=== PATIENT | female | born 1970 | race Caucasian/White ===

== ENCOUNTER 2021-11-02 07:56 | Outpatient (REF) | payer BC, SELFPAY ==
[2021-11-02 11:17] LABS: MANUAL DIFF FLAG NO
[2021-11-02 11:44] LABS: Basophils Absolute Auto 0.1 X10*3/uL (0.0-0.2); Basophils Percent Auto 1.2 % (0-2); Eosinophils Absolute Auto 0.1 X10*3/uL (0.0-0.4); Eosinophils Percent Auto 2.6 % (0-4); Hemoglobin 14.3 g/dl (12.0-16.0); Imm Gran Abs Auto 0.01 X10*3/uL (0.00-0.03); Imm Gran Pct Auto 0.2 % (0.0-0.4); Lymphocytes Absolute Auto 1.8 X10*3/uL (1.2-4.9); Lymphocytes Percent Auto 35.1 % (20-40); Mean Corpuscular HGB Conc 33.3 g/dl (31.0-35.0); Mean Corpuscular Hemoglobin 32.7 pg (27.0-33.0); Mean Corpuscular Volume 98.4 fL (80.0-98.0); Mean Platelet Volume 9.6 fL (9.4-12.3); Monocytes Absolute Auto 0.4 X10*3/uL (0.1-1.2); Monocytes Percent Auto 8.2 % (2-11); Neutrophils Absolute Auto 2.6 x10*3/uL (2.0-8.3); Neutrophils Percent Auto 52.7 % (45-73); Platelet Count 260 X10*3/uL (160-400); Red Blood Count 4.37 X10*6/uL (4.20-5.50)
[2021-11-02 12:16] LABS: Alanine Aminotransferase 17 U/L (0-31); Albumin Level 4.2 g/dL (3.5-5.0); Alkaline Phosphatase 41 U/L (39-117); Anion Gap 12 (12-20); Aspartate Amino Transferase 20 U/L (5-31); Bilirubin Total 0.8 mg/dL (0.0-1.0); Blood Urea Nitrogen 12 mg/dL (9-16); Calcium 9.3 mg/dL (8.4-10.2); Carbon Dioxide 27 mmol/L (22-29); Chloride 103 mmol/L (96-108); Cholesterol 180 mg/dL; Estimated Glomerular Filt Rate > 60; Glucose Fasting 83 mg/dL (60-99); HDL Cholesterol 67 mg/dL; LDL Cholesterol Calculated 92 mg/dl; Potassium 4.3 mmol/L (3.3-5.1); Sodium 138 mmol/L (135-145); Total Protein 6.7 g/dL (6.5-8.0); Triglycerides 105 mg/dL
== END 2021-11-02 07:57 | disposition home or self-care (01) ==
LOC: HO.MANLDS 07:56
PROVIDERS: PCP Physician Assistant; Visit Provider Physician Assistant
DX: Z00.00 Encounter for general adult medical examination without abnormal findings (principal)
CPT/HCPCS: 36415; 80053; 80061; 85025; 86900; 86901

== ENCOUNTER 2023-04-03 08:06 | Outpatient (REF) | payer BC, SELFPAY ==
[2023-04-03 13:12] LABS: MANUAL DIFF FLAG NO
[2023-04-03 13:37] LABS: Basophils Absolute Auto 0.1 X10*3/uL (0.0-0.2); Basophils Percent Auto 1.1 % (0-2); Eosinophils Absolute Auto 0.1 X10*3/uL (0.0-0.4); Eosinophils Percent Auto 2.2 % (0-4); Hematocrit 42.2 % (37.0-47.0); Hemoglobin 13.9 g/dl (12.0-16.0); Imm Gran Abs Auto 0.01 X10*3/uL (0.00-0.03); Imm Gran Pct Auto 0.2 % (0.0-0.4); Lymphocytes Absolute Auto 1.8 X10*3/uL (1.2-4.9); Lymphocytes Percent Auto 40.7 % (20-40); Mean Corpuscular HGB Conc 32.9 g/dl (31.0-35.0); Mean Corpuscular Hemoglobin 31.8 pg (27.0-33.0); Mean Corpuscular Volume 96.6 fL (80.0-98.0); Mean Platelet Volume 9.5 fL (9.4-12.3); Monocytes Absolute Auto 0.5 X10*3/uL (0.1-1.2); Monocytes Percent Auto 11.3 % (2-11); Neutrophils Percent Auto 44.5 % (45-73); Platelet Count 278 X10*3/uL (160-400); Red Blood Count 4.37 X10*6/uL (4.20-5.50); Red Cell Distribution Width 12.4 % (11.0-16.0); White Blood Count 4.5 X10*3/uL (4.8-10.8)
[2023-04-03 13:50] LABS: Alanine Aminotransferase 17 U/L (0-31); Albumin Level 4.6 g/dL (3.5-5.0); Alkaline Phosphatase 62 U/L (39-117); Anion Gap 11 (12-20); Aspartate Amino Transferase 23 U/L (5-31); Bilirubin Total 0.8 mg/dL (0.0-1.0); Blood Urea Nitrogen 13 mg/dL (9-16); Calcium 10.1 mg/dL (8.4-10.2); Carbon Dioxide 30 mmol/L (22-29); Chloride 103 mmol/L (96-108); Cholesterol 182 mg/dL (<200); Estimated Glomerular Filt Rate > 60; Glucose Random 89 mg/dL (60-115); HDL Cholesterol 85 mg/dL (>40); LDL Cholesterol Calculated 90 mg/dL (<100); Potassium 4.2 mmol/L (3.3-5.1); Sodium 140 mmol/L (135-145); Total Protein 7.2 g/dL (6.5-8.0); Triglycerides 35 mg/dL (<150)
== END 2023-04-03 08:07 | disposition home or self-care (01) ==
LOC: HO.MANLDS 08:06
PROVIDERS: Visit Provider Physician Assistant
DX: Z00.00 Encounter for general adult medical examination without abnormal findings (principal)
CPT/HCPCS: 36415; 80053; 80061; 85025

== ENCOUNTER 2023-08-29 08:06 | Outpatient (REF) | payer BC, SELFPAY ==
[2023-08-29 14:17] LABS: Parathyroid Hormone Intact 50.3 pg/mL (8.7-77.1)
[2023-08-29 14:25] LABS: Alanine Aminotransferase 15 U/L (0-31); Albumin Level 4.5 g/dL (3.5-5.0); Alkaline Phosphatase 53 U/L (39-117); Anion Gap 12 (12-20); Aspartate Amino Transferase 16 U/L (5-31); Bilirubin Total 0.7 mg/dL (0.0-1.0); Blood Urea Nitrogen 9 mg/dL (9-16); C Reactive Protein < 0.04 mg/dL (< or = 0.50); Calcium 9.8 mg/dL (8.4-10.2); Carbon Dioxide 27 mmol/L (22-29); Chloride 103 mmol/L (96-108); Estimated Glomerular Filt Rate > 60; Glucose Random 95 mg/dL (60-115); Potassium 3.6 mmol/L (3.3-5.1); Sodium 138 mmol/L (135-145); Total Protein 6.9 g/dL (6.5-8.0)
[2023-08-29 14:29] LABS: Rheumatoid Factor < 13.0 IU/mL (<15.0)
[2023-08-29 14:37] LABS: Cortisol Random 27.3 ug/dL; Free T4 (Free Thyroxine) 1.04 ng/dL (0.71-1.85); Thyroid Stimulating Hormone 0.85 uIU/mL (0.32-4.0)
[2023-08-29 14:40] LABS: Erythrocyte Sedimentation Rate 2 MM/HR (0-20)
[2023-08-29 14:46] LABS: Folate 15.7 ng/mL (> or = 4.0); Vitamin B12 401 pg/mL (200-900)
[2023-09-01 11:44] LABS: Anti Nuclear Antibody Screen NEGATIVE (NEGATIVE)
== END 2023-08-29 08:07 | disposition home or self-care (01) ==
LOC: HO.MANLDS 08:06
PROVIDERS: Visit Provider Physician Assistant
DX: F41.1 Generalized anxiety disorder (principal)
CPT/HCPCS: 36415; 80053; 82533; 82607; 82746; 83970; 84439; 84443; 85652; 86038; 86140; 86431

== ENCOUNTER 2023-12-17 10:45 | Outpatient (RCR) | payer BC, SELFPAY ==
[2023-12-17 11:52] VITALS: BMI 17.8
[2023-12-17 11:53] VITALS: BP 124/89; PULSE 93; TEMP 37.1
--- NOTE | 2023-12-17 12:43 | PC.ADMIT ---
Patient is a 53 year old female who was referred to [facility] by her psychiatric prescriber d/t severe anxiety with panic attacks and weight loss of about 10 lbs since August 2023 and depression. Patient having difficulty making decisions and concentrating and not able to enjoy the things she used to enjoy. Patient is visible anxious notable tremulousness. Does not believe she will get better. With much negative thinking. Does not think the program will help her. Supported patient to at least try the program for a few days. Patient seen staring at this creative services writer at times during the nursing assessment as if processing things. Appears fearful. Patient reports since she stopped control in August her symptoms of anxiety increased. Patient also stated medication stopped working. She is taking a leave of absence from work d/t symptoms. Patient is alert and oriented x3. Calm and cooperative. She presented with depressed mood and very anxious affect. She denied SI, No HI, No AH, no VH, and denied paranoid thoughts. She was given a copy of her safety plan if needed. Medications reconciled with patient and patient's pharmacy. Patient stated she is no longer is taking Lamotrigine and is back on 10 mg of Zyprexa (not 7.5 mg that was filled on 12/07/23). She stated there have been a lot of medication changes since August. She reports taking medication as prescribed.
--- NOTE | 2023-12-17 16:14 | HO.PS.ADMBH ---
[facility] Date of Service: 12/17/23 Chief Complaint: bipolar I,MILLER Sources of Information: patient interviewed, chart reviewed and crisis/core team assessment reviewed HPI Narrative: Patient is a 53 yo female who presents in a mixed manic agitated state and was referred to [facility] by her psychiatric provider Denise PATTERSON. Patient describes worsening anxiety, mood instability, insomnia since discontinuing control pills back in August. She denies any history suggestive of Bipolar Disorder or any previous manic/hypomanic episodes, although she does endorse a history of post- depression where reportedly she experienced high anxiety/distress and was started on Paxil. She remained stable on Paxil for >20 years without issue up until more recently developing symptoms of anxiety and depression around 2022. Initially her BCP were discontinued and Paxil was increased, however her symptoms worsened and agitation/insomnia began to emerge. Patient was eventually started on a cocktail of Lamictal, Lorazepam and Zyprexa which reportedly helped for about 2 weeks before she started to further decompensate. Lamictal was titrated to 75 mg but eventually discontinued with increasing dose of Zyprexa. She has been able to fall sleep with Zyprexa 10 mg, sleeping about 6 hours, but says she wakes in the morning, already feeling anxious and this gets worse over the course of the day. She is taking 0.5 mg tablets of lorazepam 2-3 times during the day for anxiety but says it seems they aren't helping anymore. Paxil has been tapered to 10 mg over the past 1-2 week. She reports feeling overwhelmed, apprehensive, panicked, shaky, with high anxiety and unable to relax or remain seated. She complains that she is unable to concentrate, read or comprehend anything being talked about in groups and feels she is too anxious to be here at the program. She makes many attempts to terminate our conversation, stating I gotta go and rising from her seat, but appears being confused and says she does not know where she needs to go or what she is trying to get away from. She presents as acutely anxious, distressed with considerable psychomotor agitation, fidgeting, but was redirectable for short periods of time. She says she does not know why she is here at [facility], but then indicates her doctor asked her to come here and agrees that she is not doing well and needs help. She denies any self harming thoughts or impulses, and denies any SI and denies any history of SIB or suicidal behavior. Denies any history of aggressive ideation, HI or aggression. Her Jarret will be picking her up from the program and she is agreeable to going home, starting on a PRN dose of 2.5 mg Zyprexa and plan for phone call this evening with this provider. She agrees to include her in on the conversation who has been provided her with a lot of support, saying she is overwhelmed and feels unable to make any decisions for herself at this time. 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 (on Paxil) Psych provider: Denise Williamson PNP PCP: Nitesh Rosenberg DO Previous trials: lamotrigine (as high as 75 mg/d since Aug, recently discontinued) CURRENT MEDICATIONS: Paxil 10 mg qhs (as high as 40 mg/d - >20 years) olanzapine 10 mg qhs Lorazepam 0.5 mg BID PRN [facility] Medical History (Updated 12/17/23 @ 23:12 by More Brown MD) No known health problems Narrative: Recently discont from [facility] (x27 yrs) to assess menopausal status Hx of febrile seizures at age 5 (was briefly treated) LMP: December 2022 (khushi/postmenopausal) Family History: Per assessment, patient noted daughter with Bipolar dx Social History: LIves at home with Has 2 adult children ages 28 and 25 Works as a paraprofessional at an elementary school, currently on leave from work since 12/12 Substance History: Alcohol use - socially, in moderation about 1-2 times/wk, last drink 1 week ago (hard cider) No other substance use Diagnostics Vital Signs (24Hr): Vital Signs - 24 hr 12/17/23 11:53 Temperature 98.8 F Pulse Rate 93 Blood Pressure 124/89 BMI result Body Mass Index 17.8 Meds/Allergies Meds Home Medications ?Medication ?Instructions ?Recorded ?Confirmed ?Type lorazepam 0.5 mg tablet 0.5 mg PO BID PRN Anxiety 12/17/23 12/17/23 History olanzapine 10 mg tablet 10 mg PO BEDTIME 12/17/23 12/17/23 History paroxetine HCl 10 mg tablet 10 mg PO DAILY 12/17/23 12/17/23 History Allergies Allergies Allergy/AdvReac Type Severity Reaction Status Date / Time No Known Allergies Allergy Verified 12/17/23 11:51 Mental Status Exam Mental Status Exam Patient Appearance: Unkempt Patient Orientation: Person and Place Level of Consciousness: Awake, Restless and Alert Patient Behavior: Restless, Anxious and Distractible Mood Description: Fearful, Anxious, Flat and Nervous Affect Description: Depressed, Anxious, Labile and Apprehensive Patient Cognition Impaired: Yes Ability to Follow Directions: Fair Speech Pattern: Perseverating, Difficulty Finding Words, Aphasic, Rambling, Rapid, Inappropriate and Long Pauses Memory Description: Immediate Impaired and Working Impaired Hallucinations: None Delusions: Not Present Perceptual Disturbances: Depersonalization Thought Process: Rumination and Confusion Thought Content: positive for Racing, positive for Perseveration and positive for Disorganized Depressive Symptoms: Increased Anxiety, Insomnia, Diff. Making Decisions, Muscle Tension, Difficulty Sleeping, Loss of Int. in Activity, Hopelessness and Difficulty Concentrating Abnormal Motor Activity Signs and Symptoms: Agitation and Restlessness Judgement: Fair Judgement and Insight: limited Telehealth Telehealth Telehealth Platform: Other (please specify) (ID [employer]) Location of provider rendering services: other (private office) Location of patient: other ([facility]) Patient Identification confirmed using: Name, : Yes Telehealth method: video Patient verbally consented to treatment: Yes Minutes spent on Phone/Video with Pt.: 60 Assessment & Plan Assessment & Plan (1) Altered mood associated with gordo: Status: Acute Code(s): F30.9 - Manic episode, unspecified Assessment and Plan: r/o agitated catatonia (2) Other anxiety states: Status: Acute Code(s): F41.1 - Generalized anxiety disorder Assessment and Plan: Panic attacks, generalized anxiety, phobia (3) Cognitive and behavioral changes: Status: Acute Code(s): R41.89 - Other symptoms and signs involving cognitive functions and awareness; R46.89 - Other symptoms and signs involving appearance and behavior Plan Admit to PHP VS reviewed: pt currently abrefile 98.8; BP 124/89; 93 bpm will continue to monitor VS tomorrow (will continue to monitor for fever/autonomic instability, AIMS and monitor for other s/s of NMS or EPS as we rapidly titrate dose in next 24 hrs continue olanzapine 10 mg QHS start olanzapine 2.5 mg this afternoon spoke with patient and spouse this evening by phone for 30 min plan to start olanzapine 5 mg tomorrow AM and will have patient take day off from program tomorrow, will follow up by phone in late AM if symptoms worsen, patient encouraged to go to the ER otherwise will plan titrate dose tomorrow to 12/15/09 per patient, dose of paroxetine was rapidly tapered over the past week, will continue at 10 mg for now Routine lab work will order tomorrow - Will also order routine EKG UDS as indicated [facility] reviewed Continue to monitor as per protocol Patient educated on: diagnosis, medication risk/benefits and substance abuse Informed Consent: understands Reason for continued partial hosp. stay Substantial Risk for: inability to function, rapid decompensation and med/psych decompensation Certification I certify that partial hospital treatment is medically necessary due to the symptoms and problems resulting from the patient's mental illness and the failure to treat the patient at the partial hospital level of care would likely result in the patient requiring inpatient psychiatric care which could not be prevented at a less intensive level of care. Time Spent With Patient Time: Total time managing care of this patient today __60__ minutes.
== END 2023-12-17 23:59 | disposition admitted as inpatient to this hospital (09) ==
LOC: HO.PHPA 10:45
PROVIDERS: Visit Provider Psychiatry & Neurology Psychiatry
DX: F30.9 Manic episode, unspecified (principal); F41.1 Generalized anxiety disorder; R41.89 Other symptoms and signs involving cognitive functions and awareness; Z79.899 Other long term (current) drug therapy
CPT/HCPCS: 90791; 90853

== ENCOUNTER → 2023-12-17 10:45 | Outpatient (BNV) | payer BC, SELFPAY | PROVIDERS: Visit Provider Psychiatry & Neurology Psychiatry | DX: F30.9 Manic episode, unspecified (principal); F41.1 Generalized anxiety disorder; R41.89 Other symptoms and signs involving cognitive functions and awareness | CPT/HCPCS: 90791 ==

== ENCOUNTER 2023-12-18 11:45 | Inpatient (IN) | payer BC, SELFPAY ==
[2023-12-18 12:10] VITALS: BP 138/88; PULSE 86; RESP 16; TEMP 36.6; O2SAT 98; BMI 17.6
[2023-12-18 12:30] LABS: MANUAL DIFF FLAG NO
[2023-12-18 12:32] LABS: Basophils Percent Auto 0.6 % (0-2); Hematocrit 40.4 % (37.0-47.0); Hemoglobin 14.1 g/dl (12.0-16.0); Imm Gran Abs Auto 0.01 X10*3/uL (0.00-0.03); Imm Gran Pct Auto 0.2 % (0.0-0.4); Lymphocytes Percent Auto 14.9 % (20-40); Mean Corpuscular HGB Conc 34.9 g/dl (31.0-35.0); Mean Corpuscular Hemoglobin 32.7 pg (27.0-33.0); Mean Corpuscular Volume 93.7 fL (80.0-98.0); Mean Platelet Volume 8.5 fL (9.4-12.3); Monocytes Absolute Auto 0.6 X10*3/uL (0.1-1.2); Monocytes Percent Auto 9.5 % (2-11); Neutrophils Absolute Auto 4.8 x10*3/uL (2.0-8.3); Neutrophils Percent Auto 74.8 % (45-73); Platelet Count 276 X10*3/uL (160-400); Red Blood Count 4.31 X10*6/uL (4.20-5.50); Red Cell Distribution Width 12.2 % (11.0-16.0); White Blood Count 6.5 X10*3/uL (4.8-10.8)
[2023-12-18 12:46] LABS: Alanine Aminotransferase 24 U/L (0-31); Alkaline Phosphatase 70 U/L (39-117); Anion Gap 14 (12-20); Aspartate Amino Transferase 40 U/L (5-31); Bilirubin Total 0.8 mg/dL (0.0-1.0); Blood Urea Nitrogen 8 mg/dL (9-16); Calcium 10.9 mg/dL (8.4-10.2); Carbon Dioxide 27 mmol/L (22-29); Chloride 102 mmol/L (96-108); Creatinine Clr Calc Pharmacy 73.5; Estimated Glomerular Filt Rate > 60; Glucose Random 123 mg/dL (60-115); Potassium 4.4 mmol/L (3.3-5.1); Sodium 139 mmol/L (135-145); Total Protein 7.6 g/dL (6.5-8.0)
[2023-12-18 12:47] LABS: Acetaminophen LAB < 3 mcg/mL (<30); Salicylate < 5.0 mg/dL (15-30)
--- NOTE | 2023-12-18 14:12 | MHC.CARE ---
CARE Team received a Section 12A from Dr. Brown from [facility]
[2023-12-18 14:31] VITALS: BP 131/91; PULSE 92; RESP 14; TEMP 36.9; O2SAT 98
[2023-12-18 14:48] LABS: Appearance Urine Clear; Color Urine Yellow; Glucose Urine UA Negative (Negative); Leukocyte Esterase Urine Small (1+) (Negative); Nitrite Urine Negative (Negative); PH 6.5 (5.0-9.0); UMIC TRIGGER UACC YES; Urine Blood Small (1+) (Negative); Urine Ketones Negative (Negative); Urine Protein Negative (Neg-Trace)
[2023-12-18 14:49] LABS: UPreg QC Valid YES; Urine Pregnancy NEGATIVE (NEGATIVE)
--- NOTE | 2023-12-18 14:49 | PC.NURSE ---
Patient arrived on unit accompanied by security and her . The patient presents anxious and guarded with minimal verbal responses. At this time the patient denies suicidal and homicidal ideations as well as denies auditory and visual hallucinations as well. Patient was changed over to hospital attire. No acute signs of distress observed and breathing is equal and unlabored. Will continue with plan of care.
--- NOTE | 2023-12-18 14:52 | ED_ITS ---
HPI - Psych General Chief Complaint: Behavioral Concerns Stated Complaint: Sent by [facility] psych eval? Time Seen by Provider: 12/18/23 14:23 Source: patient, family ( ) and old records reviewed Mode of arrival: ambulatory Limitations: no limitations History of Present Illness HPI Narrative: a 53-year-old female came in from [facility] program in section 12 for further evaluation severe anxiety and gordo. History was obtained from patient, and old chart. Patient symptoms started 28 years ago after gave to her son with depression patient was started on Paxil for 25 years that was discontinued about 5 months ago because becoming ineffective for the patient's symptoms, patient was started on Lamictal and olanzapine by her [facility]IST psychiatry initially was working fine with the patient until 5 days ago patient started to decline and becoming more manic with severe anxiety, patient feels overwhelmed, apprehensive, shaky with high anxiety and unable to relax or remain seated, lack of concentration, not following simple commands. Patient was seen at [facility] program and patient was brought to the hospital under section [address] Stephanie Aguero for further inpatient psych workup. Related Data Home Medications ?Medication ?Instructions ?Recorded ?Confirmed lorazepam 0.5 mg tablet 0.5 mg PO BID PRN Anxiety 12/17/23 12/18/23 olanzapine 10 mg tablet 10 mg PO BEDTIME 12/17/23 12/18/23 paroxetine HCl 10 mg tablet 10 mg PO DAILY 12/17/23 12/18/23 Allergies Allergy/AdvReac Type Severity Reaction Status Date / Time No Known Allergies Allergy Verified 12/18/23 12:16 Review of Systems 2 Review of Systems: All other systems are reviewed and are negative Constitutional: Reports as per HPI and Reports no additional constitutional complaints Eyes: Reports as per HPI and Reports no additional eye complaints Reports system reviewed and no additional complaints, except as documented Cardiovascular: Reports as per HPI and Reports no additional cardiovascular complaints Respiratory: Reports as per HPI and Reports no additional respiratory complaints Gastrointestinal: Reports as per HPI and Reports no additional gastrointestinal complaints Genitourinary: Reports no additional female genitourinary complaints Musculoskeletal: Reports no additional musculoskeletal complaints Skin/Breast: Reports system reviewed and no additional complaints, except as docu Psychiatric: Reports no additional psychiatric complaints Endocrine: Reports no additional endocrine complaints Hematologic/Lymphatic: Reports no additional hematologic/lymphatic complaints Allergic/Immunologic: Reports no additional allergic/immunologic complaints Reports system reviewed and no additional complaints, except as documented and Reports Abnormal speech present [facility] Past Medical History Medical History No known health problems Social History Social History Household Members: Spouse Alcohol intake: current Alcohol intake frequency: a few times a week Alcohol type: wine Patient Tobacco Use Status: Never used Tobacco Smoked in Last 30 Days: No Use of substances other than those prescribed or required for medical reasons: No Do you have a plan to hurt others: No Plan Physical Exam 2 Vital Signs: Vital Signs: Last Vital Signs Temp 98.5 F 12/18/23 14:31 Pulse 92 12/18/23 14:31 Resp 14 12/18/23 14:31 BP 131/91 H 12/18/23 14:31 Pulse Ox 98 12/18/23 14:31 O2 Del Method Room Air 12/18/23 14:31 BMI result Body Mass Index 17.6 Vital signs have been reviewed and appear to be correct. Blood pressure elevated. Heart rate normal. Respiratory rate normal. Temperature normal. Oxygen saturation normal. Appearance: Alert. Oriented X3. No acute distress. Head: Normal external exam. Normocephalic. Atraumatic. No Kumar signs noted. No raccoon eyes noted Eyes: PERRLA. EOMI. Conjunctiva and sclera normal. Eyelids normal. ENT: TM's Normal. Pharynx normal. Uvula midline. Moist mucous membranes. No trismus noted. No drooling noted. No muffled voice noted. Neck: Normal inspection. Neck supple. FROM. No adenopathy. Thyroid Normal. No meningeal signs. No neck mass noted. CVS: Normal heart rate and rhythm. Heart sound normal. No murmurs noted. Pulses normal throughout. Respiratory: No respiratory distress. Painless inspiration. Breath sounds normal. No wheezes/rales/rhonchi noted. Chest nontender. No accessory muscle usage noted or decreased air movement noted. Abdomen: Soft and nontender. Bowel sounds normal in all 4 quadrants. No distention noted. No organomegaly noted. No visible injury noted. Back: No CVA tenderness. Full range of motion noted. Skin: Skin warm and dry. Normal skin color. Normal skin turgor. No rashes/lesions/lacerations noted. Extremities: No lower extremity edema. Extremities exhibit normal range of motion. Extremities nontender. Neuro: Oriented X 3. Cranial nerve exam: II-XII are grossly intact No motor deficit. No sensory deficit. Reflexes normal. Patient Orientation: Person, Place, Time and Situation, okay hygiene and grooming. Fair eye contact, attentive, no tics or tremors. Level of Consciousness: Awake, Appropriate and Alert Patient Behavior: Appropriate, Guarded, Cooperative and Anxious Mood Description: Constricted, Blunted and Apprehensive Affect Description: Constricted, Blunted and Apprehensive Patient Cognition Impaired: No Ability to Follow Directions: appropriate Speech Pattern: Clear, Appropriate and Spontaneous Speech, nonpressured, spontaneous with regular rate and rhythm, normal volume and prosody. No dysarthria. Memory Description: Intact, Immediate Intact and Short Term Intact Hallucinations: None Delusions: Not Present Thought Process: Intact Thought Content: positive for Intact, positive for Logical, denies Suicidal Ideation and denies Homicidal Ideation. Depressive Symptoms: Not present. Judgement and Insight: Limited but adequate. Course Reevaluation(s) Reevaluation #1: Patient needs further evaluation by care team, will start physician observation until further psychiatric evaluation. Time: 15:04 Reevaluation #2: Continue patient under section 12, benzos p.r.n. severe agitation and anxiety, patient has been evaluated by care team and bed search is underway. Time: 19:55 Medications Administered Generic Name Dose Route Start Last Admin Trade Name Freq PRN Reason Stop Dose Admin Paroxetine HCl 10 mg 12/18/23 15:15 12/18/23 15:42 Paroxetine Hcl 10 Mg Tablet PO 10 mg DAILY GREYSON Administration Discontinued Medications Generic Name Dose Route Start Last Admin Trade Name Freq PRN Reason Stop Dose Admin Lorazepam 2 mg 12/18/23 15:02 12/18/23 15:42 Lorazepam 1 Mg Tablet PO 12/18/23 15:03 2 mg ONCE ONE Administration Medical Decision Making Differential Diagnosis Differential Diagnoses: The differential diagnosis associated with the presentation includes ( electrolyte derangement, severe anemia, UTI, urine drug screen, aspirin level, Tylenol level, acute psychosis, severe anxiety.) Admission/Observation Consideration of admission/observation: Escalation of care including admission/observation considered Lab Data MDM Lab Attestation statement: I reviewed the patient's lab results. 12/18/23 12:26 12/18/23 12:26 Labs: Lab Results 12/18/23 12/18/23 Range/Units 12:26 14:21 WBC 6.5 (4.8-10.8) X10*3/uL RBC 4.31 (4.20-5.50) X10*6/uL Hgb 14.1 (12.0-16.0) g/dl Hct 40.4 (37.0-47.0) % MCV 93.7 (80.0-98.0) fL MCH 32.7 (27.0-33.0) pg MCHC 34.9 (31.0-35.0) g/dl RDW 12.2 (11.0-16.0) % Plt Count 276 (160-400) X10*3/uL MPV 8.5 L (9.4-12.3) fL Immature Gran % (Auto) 0.2 (0.0-0.4) % Neut % (Auto) 74.8 H (45-73) % Lymph % (Auto) 14.9 L (20-40) % Merrick % (Auto) 9.5 (2-11) % Eos % (Auto) 0.0 (0-4) % Baso % (Auto) 0.6 (0-2) % Lymph # (Auto) 1.0 L (1.2-4.9) X10*3/uL Merrick # (Auto) 0.6 (0.1-1.2) X10*3/uL Eos # (Auto) 0.0 (0.0-0.4) X10*3/uL Baso # (Auto) 0.0 (0.0-0.2) X10*3/uL Abs Immat Gran (auto) 0.01 (0.00-0.03) X10*3/uL Absolute Neuts (auto) 4.8 (2.0-8.3) x10*3/uL Absolute Nucleated RBC 0.000 (0.0-0.012) X10*3/uL Nucleated RBC % (auto) 0.0 (0.0-0.2) /100WBC Sodium 139 (135-145) mmol/L Potassium 4.4 D (3.3-5.1) mmol/L Chloride 102 (96-108) mmol/L Carbon Dioxide 27 (22-29) mmol/L Anion Gap 14 (12-20) BUN 8 L (9-16) mg/dL Creatinine 0.69 (0.5-1.4) mg/dL Estim Creat Clear Calc 73.5 Estimated GFR > 60 Random Glucose 123 H (60-115) mg/dL Calcium 10.9 H D (8.4-10.2) mg/dL Total Bilirubin 0.8 (0.0-1.0) mg/dL AST 40 H (5-31) U/L ALT 24 (0-31) U/L Alkaline Phosphatase 70 (39-117) U/L Total Protein 7.6 (6.5-8.0) g/dL Albumin 5.0 (3.5-5.0) g/dL Urine Color Yellow Urine Appearance Clear Urine pH 6.5 (5.0-9.0) Ur Specific [place] 1.010 (1.005-1.025) Urine Protein Negative (Neg-Trace) mg/dL Urine Glucose (UA) Negative (Negative) mg/dL Urine Ketones Negative (Negative) mg/dL Urine Blood Small (1+) H (Negative) Urine Nitrite Negative (Negative) Ur Leukocyte Esterase Small (1+) H (Negative) Urine RBC 11-20 H (0-2) /HPF Urine WBC 0-5 (0-5) /HPF Ur Squamous Epith Cells 3-5 (0-2) /HPF Urine Bacteria None Seen (None Seen) Hyaline Casts 0-2 (0-2) /LPF Urine Test NEGATIVE (NEGATIVE) Salicylates < 5.0 L (15-30) mg/dL Urine Opiates Screen Not Detected (Not Detect) Ur Buprenorphine Scrn Not Detected (Not Detect) ng/mL Ur Oxycodone Screen Not Detected (Not Detect) ng/mL Urine Methadone Screen Not Detected (Not Detect) ng/mL Urine Fentanyl Screen Not Detected (Not Detect) Acetaminophen < 3 (<30) mcg/mL Ur Barbiturates Screen Not Detected (Not Detect) Ur Phencyclidine Scrn Not Detected (Not Detect) Ur Amphetamines Screen Not Detected (Not Detect) U Benzodiazepines Scrn Not Detected (Not Detect) Urine Cocaine Screen Not Detected (Not Detect) U Marijuana (THC) Screen Not Detected (Not Detect) Discharge Plan Discharge Clinical Impression: Altered mood associated with gordo, Acute anxiety Patient Disposition: Still a Patient Prescriptions: No Action paroxetine HCl 10 mg tablet 10 mg PO DAILY olanzapine 10 mg tablet 10 mg PO BEDTIME Patient Comments: Pharmacy stated last filled 12/07/23 7.5 mg at bedtime. Patient stated that she is currently taking 10 mg at bedtime. lorazepam 0.5 mg tablet 0.5 mg PO BID PRN (Reason: Anxiety) Rx Instructions: Take 2 tabs in the AM and one tab in the evening for 7 days then take 0.5 mg BID PRN. Print Language: Northern Irish
[2023-12-18 14:53] LABS: Amphetamine Screen Urine Not Detected (Not Detect); Barbiturates, Urine Not Detected (Not Detect); Benzodiazepines Screen Urine Not Detected (Not Detect); Buprenorphine Scr Not Detected (Not Detect); Cannabinoid Screen Urine Not Detected (Not Detect); Cocaine Screen Urine Not Detected (Not Detect); Fentanyl, urine Not Detected (Not Detect); Methadone Screen, Urine Not Detected (Not Detect); Opiate Screen Urine Not Detected (Not Detect); Oxycodone Screen Urine Not Detected (Not Detect); Phencyclidine Screen Urine Not Detected (Not Detect)
[2023-12-18 15:01] LABS: Bacteria Urine None Seen (None Seen); Hyaline Casts Urine 0-2 /LPF (0-2); UACC Culture Trigger YES; WBC Urine 0-5 /HPF (0-5)
[2023-12-18] MEDS: PARoxetine HCL 10 MG TABLET PO (15:42)
[2023-12-18] MEDS: LORazepam 1 MG TABLET 2 MG PO (15:42)
--- NOTE | 2023-12-18 19:25 | PC.NURSE ---
patient appears to remain at rest presently, respirations are even and unlabored patient appears in no distress
--- NOTE | 2023-12-19 05:14 | PC.NURSE ---
Pt sleeping at the bedside. No apparent distress noted. Breaths are even regular and unlabored with equal chest rises. Monitoring is ongoing.
[2023-12-19 06:32] VITALS: BP 102/78; PULSE 132; RESP 18; TEMP 36.4; O2SAT 98
--- NOTE | 2023-12-19 06:34 | ECG_ITS ---
Test Reason : TACHYCARDIA Blood Pressure : / mmHG Vent. Rate : 106 BPM Atrial Rate : 106 BPM P-R Int : 124 ms QRS Dur : 094 ms QT Int : 328 ms P-R-T Axes : 078 081 053 degrees QTc Int : 435 ms Sinus tachycardia Possible Left atrial enlargement Incomplete right bundle branch block Borderline ECG No previous ECGs available Referred By: Erasmo Hoyos Electronically Signed By:Stalin Herman
--- NOTE | 2023-12-19 06:49 | PC.NURSE ---
Pt aox4. No apparent distress noted. Morning vitals stable aside from HR 130's. EKG ordered and provided to MD. No new orders at this time. Monitoring is ongoing.
--- NOTE | 2023-12-19 07:28 | PC.NURSE ---
Assumed care of patient at 0645. Patient is observed sitting quietly in the milieu. No signs of distress observed. Breathing is equal and unlabored. Will continue plan of care.
[2023-12-19] MEDS: PARoxetine HCL 10 MG TABLET PO (09:25)
--- NOTE | 2023-12-19 14:14 | HO.PSYADMNOT ---
HPI Date of Service: 12/19/23 Chief Complaint: Crisis Sources of Information: patient interviewed, chart reviewed and crisis/core team assessment reviewed HPI Subjective Notes: Wallace Warning and Conditional Voluntary Narrative: Patient is a 53 year old female with hx of MDD and panic d/o who presented to [facility] from [facility] PHP at the request of secondary to increased anxiety and not being at baseline . Per crisis report, pt reported recently trialing different medications without relief. patient attempted to engaged in PHP however, the group setting increased her anxiety and did not feel as though it was an appropriate fit. This is patient's first inpatient psychiatric hospitalization. pt denies any substance use; UTOX negative. During admission assessment, pt presents restless and anxious. Continuously pacing room, sitting in chair and getting up again. Pt reports feeling anxious ; pt stated, I was feeling agitated and panicky. I've been feeling this way for a couple months. My panic attacks are getting out of control where I can't make decisions . Pt reports her outpatient psychiatric provider has been trialing various medications but has yet to find a combination that has been beneficial. Pt reports she was previously taking Paxil 25mg for the last 25 years and it was helping until recently . Pt reports she doesn't want to be in the hospital and just wants to go home . Pt denies SI/HI/VH/AH. Pt signed 3 day notice. Pt reports she is open to trying anything to help ; discussed risks/benefits of Depakote; pt agreed to trial. 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 (on Paxil) Psych provider: Denise Williamson PNP PCP: Nitesh Rosenberg DO Previous trials: lamotrigine (as high as 75 mg/d since Aug, recently discontinued) CURRENT MEDICATIONS: Paxil 10 mg qhs (as high as 40 mg/d - >20 years) olanzapine 10 mg qhs Lorazepam 0.5 mg BID PRN Medical Evaluation Reviewed: Yes [facility] Medical History No known health problems Family History: Per assessment, patient noted daughter with Bipolar dx Social History: LIves at home with Has 2 adult children ages 28 and 25 Works as a paraprofessional at an elementary school, currently on leave from work since 12/12 Substance History: denies Trauma History: denies Diagnostics Vital Signs (24Hr): Vital Signs - 24 hr 12/18/23 14:31 12/19/23 06:32 Temperature 98.5 F 97.6 F Pulse Rate 92 132 H Respiratory Rate 14 18 Blood Pressure 131/91 H 102/78 Pulse Oximetry 98 98 Oxygen Delivery Method Room Air Room Air BMI result Body Mass Index 17.6 Labs 12/18/23 12:26 12/18/23 12:26 Labs: Laboratory Results - last 48 hr 12/18/23 12/18/23 12:26 14:21 WBC 6.5 RBC 4.31 Hgb 14.1 Hct 40.4 MCV 93.7 MCH 32.7 MCHC 34.9 RDW 12.2 Plt Count 276 MPV 8.5 L Immature Gran % (Auto) 0.2 Neut % (Auto) 74.8 H Lymph % (Auto) 14.9 L [place] % (Auto) 9.5 Eos % (Auto) 0.0 Baso % (Auto) 0.6 Lymph # (Auto) 1.0 L [place] # (Auto) 0.6 Eos # (Auto) 0.0 Baso # (Auto) 0.0 Abs Immat Gran (auto) 0.01 Absolute Neuts (auto) 4.8 Absolute Nucleated RBC 0.000 Nucleated RBC % (auto) 0.0 Sodium 139 Potassium 4.4 D Chloride 102 Carbon Dioxide 27 Anion Gap 14 BUN 8 L Creatinine 0.69 Estim Creat Clear Calc 73.5 Estimated GFR > 60 Random Glucose 123 H Calcium 10.9 H D Total Bilirubin 0.8 AST 40 H ALT 24 Alkaline Phosphatase 70 Total Protein 7.6 Albumin 5.0 Urine Color Yellow Urine Appearance Clear Urine pH 6.5 Ur Specific [place] 1.010 Urine Protein Negative Urine Glucose (UA) Negative Urine Ketones Negative Urine Blood Small (1+) H Urine Nitrite Negative Ur Leukocyte Esterase Small (1+) H Urine RBC 11-20 H Urine WBC 0-5 Ur Squamous Epith Cells 3-5 Urine Bacteria None Seen Hyaline Casts 0-2 Urine Test NEGATIVE Salicylates < 5.0 L Urine Opiates Screen Not Detected Ur Buprenorphine Scrn Not Detected Ur Oxycodone Screen Not Detected Urine Methadone Screen Not Detected Urine Fentanyl Screen Not Detected Acetaminophen < 3 Ur Barbiturates Screen Not Detected Ur Phencyclidine Scrn Not Detected Ur Amphetamines Screen Not Detected U Benzodiazepines Scrn Not Detected Urine Cocaine Screen Not Detected U Marijuana (THC) Screen Not Detected Meds/Allergies Meds Home Medications ?Medication ?Instructions ?Recorded ?Confirmed ?Type lorazepam 0.5 mg tablet 0.5 mg PO BID PRN Anxiety 12/17/23 12/18/23 History olanzapine 10 mg tablet 10 mg PO BEDTIME 12/17/23 12/18/23 History paroxetine HCl 10 mg tablet 10 mg PO DAILY 12/17/23 12/18/23 History Allergies Allergies Allergy/AdvReac Type Severity Reaction Status Date / Time No Known Allergies Allergy Verified 12/18/23 12:16 Mental Status Exam Mental Status Exam Narrative: Pt is alert and oriented; behavior is cooperative, restless; dressed in casual attire; mood is described as anxious ; eye contact appropriate; Speech is normal rate, volume and prosody and not pressured; thought process is organized and goal directed; Thought content is on tx; denies SI/HI/VH/AH. Assessment & Plan Assessment & Plan (1) MDD (major depressive disorder), recurrent episode: Status: Acute Code(s): F33.9 - Major depressive disorder, recurrent, unspecified (2) Panic disorder: Status: Acute Code(s): F41.0 - Panic disorder [episodic paroxysmal anxiety] Plan Patient is a 53 year old female with hx of MDD and panic d/o who presented to [facility] from [facility] PHP at the request of secondary to increased anxiety and not being at baseline . Plan: CV 15 minute safety checks obtain collateral encourage groups continue home medications Start: Klonopin 1mg PO BID Depakote 250mg PO BID discharge planning Patient educated on: diagnosis, medication risk/benefits and therapeutic strategies Informed Consent: understands Reason for continued inpatient stay Substantial Risk for: med/psych decompensation Statement Statement: I have reviewed the history and physical and performed a pertinent examination on my patient. No changes have occurred unless specified. If the History and Physical was not performed prior to admission, the Hospitalist's service will be consulted for completing the admission physical. Time Spent With Patient Time: Total time managing care of this patient today _60___ minutes.
[2023-12-19 16:22] VITALS: BP 134/93; RESP 18; TEMP 36.8; O2SAT 96
[2023-12-19] MEDS: clonazePAM 1 MG TABLET PO ×2 (17:03→21:05)
[2023-12-19] MEDS: Divalproex Sodium 250 MG TABLET.DR PO ×2 (17:03→21:05)
--- NOTE | 2023-12-19 17:18 | PC.ADMIT ---
Nursing admission note: 53 year old female DX: Unspecified Mood Disorder, Unspecified BiPolar disorder. Referred for admission by CARE team. Signed conditional voluntary for admission followed by three day notice. Patient referred for admission by Dr. Brown from [facility] program. Patient reports she has been trialing different medications however has not been able to stabilize. Patient is easily engaged, mood is anxious. Affect congruent, almost tearful. Good eye contact, good attn to ADL. Denies SI/HI plan or intent at this time. Denies perceptual disturbances, no overt psychosis or expressed delusions. Reports ruminations, perseveration and stuck in a loop . Trouble thinking clearly . Feeling overwhelmed, apprehensive. Presents with difficulty organizing thoughts, frequently repeating self and asking same questions. Reassurance and support provided. Reports poor focus, concentration and distractibility. Speech is normal rate, tone, and volume however delays in response. Reports she wants help but doesn't know how long it will take . Believes I don't belong with this group stating they are too severe . Reports poor sleep prior to admission, slept well last night with medication. Reports it is hard to eat at times, 10 lb weight loss in last 5 months. TOX screen negative. Reports social use of alcohol. Non smoker. NKA. No medical problems. Patient oriented to unit, placed on unit safety checks. See nursing assessment/crisis eval for further details.
[2023-12-19 18:09] VITALS: BMI 17.4
[2023-12-19 20:09] LABS: Calcium 10.3 mg/dL (8.4-10.2)
[2023-12-19 20:15] VITALS: BP 128/68; PULSE 80; RESP 18; TEMP 37.4; O2SAT 97
[2023-12-19] MEDS: OLANZapine 10 MG TABLET PO (21:05)
[2023-12-20 07:00] VITALS: BMI 17.4
[2023-12-20 08:00] VITALS: BP 149/85; PULSE 108; RESP 16; TEMP 36.4; O2SAT 97
[2023-12-20] MEDS: clonazePAM 1 MG TABLET PO ×2 (08:39→21:27)
[2023-12-20] MEDS: PARoxetine HCL 10 MG TABLET PO (08:39)
[2023-12-20] MEDS: Divalproex Sodium 250 MG TABLET.DR PO ×2 (08:39→21:27)
[2023-12-20 08:42] LABS: Alanine Aminotransferase 20 U/L (0-31); Albumin Level 4.1 g/dL (3.5-5.0); Alkaline Phosphatase 58 U/L (39-117); Anion Gap 12 (12-20); Aspartate Amino Transferase 23 U/L (5-31); Bilirubin Total 0.6 mg/dL (0.0-1.0); Blood Urea Nitrogen 12 mg/dL (9-16); Calcium 9.6 mg/dL (8.4-10.2); Carbon Dioxide 29 mmol/L (22-29); Chloride 104 mmol/L (96-108); Cholesterol 159 mg/dL (<200); Creatinine Clr Calc Pharmacy 72.8; Estimated Glomerular Filt Rate > 60; Glucose Fasting 91 mg/dL (60-99); HDL Cholesterol 75 mg/dL (>40); LDL Cholesterol Calculated 77 mg/dL (<100); Potassium 4.3 mmol/L (3.3-5.1); Sodium 141 mmol/L (135-145); Total Protein 6.3 g/dL (6.5-8.0); Triglycerides 36 mg/dL (<150)
--- NOTE | 2023-12-20 10:12 | HO.PSYCHPN ---
Subjective Subjective Date of Service: 12/20/23 Reason For Visit: Crisis Subjective Notes: 3 Day Interim History: Reviewed with . pt presents restless, constantly fidgeting in chair. Pt reports feeling anxious ; pt stated, I'm not sure what to say even though I want to talk to you. I want to feel comfortable in my own skin. I want to get my personality back . Pt reports she felt more like myself last evening after taking klonopin and depakote, however this morning she reports feeling the same again . Pt denies SI/HI/VH/AH. Given one time dose of Cogentin 1mg PO once and Propanolol 10mg PO once to r/o possible EPS. Medication Compliance: Yes Attending Groups: Yes Review of Systems Constitutional: Reports as per HPI Eyes: Reports as per HPI Reports as per HPI Cardiovascular: Reports as per HPI Respiratory: Reports as per HPI Gastrointestinal: Reports as per HPI Musculoskeletal: Reports as per HPI Skin/Breast: Reports as per HPI Reports as per HPI Psychiatric: Reports as per HPI Endocrine: Reports as per HPI Hematologic/Lymphatic: Reports as per HPI Allergic/Immunologic: Reports as per HPI Mental Status Exam Mental Status Exam Narrative: Pt is alert and oriented; behavior is cooperative, restless; dressed in casual attire; mood is described as anxious ; eye contact appropriate; Speech is normal rate, volume and prosody and not pressured; thought process is organized and goal directed, some thought blocking; Thought content is on tx; denies SI/HI/VH/AH. Diagnostics Vital Signs (24Hr): Vital Signs - 24 hr 12/19/23 16:22 12/19/23 20:15 Temperature 98.3 F 99.3 F Pulse Rate 80 Respiratory Rate 18 18 Blood Pressure 134/93 H 128/68 Pulse Oximetry 96 97 Oxygen Delivery Method Room Air Room Air BMI result Body Mass Index 17.4 Labs 12/18/23 12:26 12/20/23 08:07 Labs: Laboratory Results - last 48 hr 12/18/23 12/18/23 12/19/23 12:26 14:21 19:44 WBC 6.5 RBC 4.31 Hgb 14.1 Hct 40.4 MCV 93.7 MCH 32.7 MCHC 34.9 RDW 12.2 Plt Count 276 MPV 8.5 L Immature Gran % (Auto) 0.2 Neut % (Auto) 74.8 H Lymph % (Auto) 14.9 L [place] % (Auto) 9.5 Eos % (Auto) 0.0 Baso % (Auto) 0.6 Lymph # (Auto) 1.0 L [place] # (Auto) 0.6 Eos # (Auto) 0.0 Baso # (Auto) 0.0 Abs Immat Gran (auto) 0.01 Absolute Neuts (auto) 4.8 Absolute Nucleated RBC 0.000 Nucleated RBC % (auto) 0.0 Sodium 139 Potassium 4.4 D Chloride 102 Carbon Dioxide 27 Anion Gap 14 BUN 8 L Creatinine 0.69 Estim Creat Clear Calc 73.5 Estimated GFR > 60 Random Glucose 123 H Fasting Glucose Calcium 10.9 H D 10.3 H Total Bilirubin 0.8 AST 40 H ALT 24 Alkaline Phosphatase 70 Total Protein 7.6 Albumin 5.0 Triglycerides Cholesterol LDL Cholesterol, Calc HDL Cholesterol Urine Color Yellow Urine Appearance Clear Urine pH 6.5 Ur Specific [place] 1.010 Urine Protein Negative Urine Glucose (UA) Negative Urine Ketones Negative Urine Blood Small (1+) H Urine Nitrite Negative Ur Leukocyte Esterase Small (1+) H Urine RBC 11-20 H Urine WBC 0-5 Ur Squamous Epith Cells 3-5 Urine Bacteria None Seen Hyaline Casts 0-2 Urine Test NEGATIVE Salicylates < 5.0 L Urine Opiates Screen Not Detected Ur Buprenorphine Scrn Not Detected Ur Oxycodone Screen Not Detected Urine Methadone Screen Not Detected Urine Fentanyl Screen Not Detected Acetaminophen < 3 Ur Barbiturates Screen Not Detected Ur Phencyclidine Scrn Not Detected Ur Amphetamines Screen Not Detected U Benzodiazepines Scrn Not Detected Urine Cocaine Screen Not Detected U Marijuana (THC) Screen Not Detected 12/20/23 08:07 WBC RBC Hgb Hct MCV MCH MCHC RDW Plt Count MPV Immature Gran % (Auto) Neut % (Auto) Lymph % (Auto) [place] % (Auto) Eos % (Auto) Baso % (Auto) Lymph # (Auto) [place] # (Auto) Eos # (Auto) Baso # (Auto) Abs Immat Gran (auto) Absolute Neuts (auto) Absolute Nucleated RBC Nucleated RBC % (auto) Sodium 141 Potassium 4.3 Chloride 104 Carbon Dioxide 29 Anion Gap 12 BUN 12 Creatinine 0.69 Estim Creat Clear Calc 72.8 Estimated GFR > 60 Random Glucose Fasting Glucose 91 Calcium 9.6 D Total Bilirubin 0.6 AST 23 ALT 20 Alkaline Phosphatase 58 Total Protein 6.3 L Albumin 4.1 Triglycerides 36 Cholesterol 159 LDL Cholesterol, Calc 77 HDL Cholesterol 75 Urine Color Urine Appearance Urine pH Ur Specific [place] Urine Protein Urine Glucose (UA) Urine Ketones Urine Blood Urine Nitrite Ur Leukocyte Esterase Urine RBC Urine WBC Ur Squamous Epith Cells Urine Bacteria Hyaline Casts Urine Test Salicylates Urine Opiates Screen Ur Buprenorphine Scrn Ur Oxycodone Screen Urine Methadone Screen Urine Fentanyl Screen Acetaminophen Ur Barbiturates Screen Ur Phencyclidine Scrn Ur Amphetamines Screen U Benzodiazepines Scrn Urine Cocaine Screen U Marijuana (THC) Screen Medications Medications Current Medications Acetaminophen (Acetaminophen 325 Mg Tablet) 650 mg PO Q6H PRN PRN Reason: Headache/Pain Mild Scale (1-3) Al Hydroxide/Mg Hydroxide (Magnesium Hydrox/Alum Hydrox 30 Ml Oral.Susp) 30 ml PO Q6H PRN PRN Reason: Heartburn/Nausea Clonazepam (Clonazepam 1 Mg Tablet) 1 mg PO BID [facility] Last Admin: 12/20/23 08:39 Dose: 1 mg Divalproex Sodium (Divalproex Sodium 250 Mg Tablet.Dr) 250 mg PO BID [facility] Last Admin: 12/20/23 08:39 Dose: 250 mg Hydroxyzine HCl (Hydroxyzine Hcl 25 Mg Tablet) 25 mg PO Q6H PRN PRN Reason: Anxiety Magnesium Hydroxide (Milk Of Magnesia 30 Ml Oral.Susp) 30 ml PO DAILY PRN PRN Reason: Constipation Olanzapine (Olanzapine 10 Mg Tablet) 10 mg PO BEDTIME [facility] Last Admin: 12/19/23 21:05 Dose: 10 mg Paroxetine HCl (Paroxetine Hcl 10 Mg Tablet) 10 mg PO DAILY [facility] Last Admin: 12/20/23 08:39 Dose: 10 mg Trazodone HCl (Trazodone Hcl 50 Mg Tablet) 50 mg PO BEDTIME [id number] PRN PRN Reason: Insomnia Allergies Allergies Allergy/AdvReac Type Severity Reaction Status Date / Time No Known Allergies Allergy Verified 12/18/23 12:16 Assessment & Plan Assessment & Plan (1) MDD (major depressive disorder), recurrent episode: Status: Acute Code(s): F33.9 - Major depressive disorder, recurrent, unspecified (2) Panic disorder: Status: Acute Code(s): F41.0 - Panic disorder [episodic paroxysmal anxiety] Plan Patient is a 53 year old female with hx of MDD and panic d/o who presented to [facility] from [facility] PHP at the request of secondary to increased anxiety and not being at baseline . Plan: CV 15 minute safety checks obtain collateral encourage groups continue home medications Start: Klonopin 1mg PO BID Depakote 250mg PO BID discharge planning 12/19: pt presents restless, constantly fidgeting in chair. Pt reports feeling anxious ; pt stated, I'm not sure what to say even though I want to talk to you. I want to feel comfortable in my own skin. I want to get my personality back . Pt reports she felt more like myself last evening after taking klonopin and depakote, however this morning she reports feeling the same again . Pt denies SI/HI/VH/AH. Given one time dose of Cogentin 1mg PO once and Propanolol 10mg PO once to r/o possible EPS. Patient educated on: diagnosis, medication risk/benefits and therapeutic strategies Informed Consent: understands Reason for continued inpatient stay Substantial Risk for: med/psych decompensation Time Spent With Patient Time: Total time managing care of this patient today _30___ minutes.
[2023-12-20 13:45] VITALS: BP 120/78; PULSE 93
[2023-12-20] MEDS: Propranolol HCL 10 MG TABLET PO ×2 (13:45→21:27)
[2023-12-20] MEDS: Benztropine Mesylate 1 MG TABLET PO (13:46)
[2023-12-20 17:37] LABS: Ammonia 42 umol/L (13-55)
[2023-12-20 17:47] LABS: C Reactive Protein < 0.04 mg/dL (< or = 0.50); Rheumatoid Factor < 13.0 IU/mL (<15.0)
[2023-12-20 18:01] LABS: TSH reflex Free T4 0.71 uIU/mL (0.32-4.0)
[2023-12-20 18:05] LABS: Erythrocyte Sedimentation Rate 2 MM/HR (0-20)
[2023-12-20 18:15] LABS: Folate 11.6 ng/mL (> or = 4.0); Vitamin B12 507 pg/mL (200-900)
[2023-12-20 21:15] VITALS: BP 113/81; PULSE 106; RESP 16; TEMP 36.7; O2SAT 100
[2023-12-21 07:36] VITALS: BP 96/52; PULSE 75; RESP 14; TEMP 36.1; O2SAT 98
[2023-12-21] MEDS: PARoxetine HCL 10 MG TABLET PO (08:26)
[2023-12-21] MEDS: Divalproex Sodium 250 MG TABLET.DR PO ×3 (08:26→22:11)
[2023-12-21] MEDS: clonazePAM 1 MG TABLET PO ×2 (08:26→22:11)
[2023-12-21 08:27] VITALS: BP 96/52; PULSE 75
--- NOTE | 2023-12-21 09:04 | P.PNPSI_ITS ---
Subjective Subjective Date of Service: 12/21/23 Reason For Visit: Crisis Subjective Notes: 3 Day Interim History: Reviewed with . Met with patient's and son with patient present. Pt retracted 3 day and signed another 3 day notice. Pt continues similar to yesterday's presentation. anxious, restless, some thought blocking. Reviewed medications and treatment plan during family meeting. Pt denies SI/HI/VH/AH. Spoke to patient's outpatient psychiatric prescriber, Denisejames Williamson, who reported she started seeing patient August 2023 when she was presenting manic. Pt was started on Olanzapine 10mg and Lamictal (dose went to 100mg PO daily); pt improved for roughly 3 weeks; Ms. Williamson discontinued olanzapine d/t patient improving, however pt began to decline in mood and resulted being hospitalized. Medications trials: Paxil (max of 40mg daily), Olanzapine (max of 10mg PO daily), Ativan (max of 1mg PO daily), Lamictal (max of 100mg PO daily), Seroquel (unknown dosage). DC propanolol. Start: Risperidal 1mg PO BID Cogentin 0.5mg PO BID Medication Compliance: Yes Side effects from medications: No Attending Groups: Yes Review of Systems Constitutional: Reports as per HPI Eyes: Reports as per HPI Reports as per HPI Cardiovascular: Reports as per HPI Respiratory: Reports as per HPI Gastrointestinal: Reports as per HPI Musculoskeletal: Reports as per HPI Skin/Breast: Reports as per HPI Reports as per HPI Psychiatric: Reports as per HPI Endocrine: Reports as per HPI Hematologic/Lymphatic: Reports as per HPI Allergic/Immunologic: Reports as per HPI Mental Status Exam Mental Status Exam Narrative: Pt is alert and oriented; behavior is cooperative, restless; dressed in casual attire; mood is described as anxious ; eye contact appropriate; Speech is normal rate, volume and prosody and not pressured; thought process is organized and goal directed, some thought blocking; Thought content is on tx; denies SI/HI/VH/AH. Diagnostics Vital Signs (24Hr): Vital Signs - 24 hr 12/20/23 13:45 12/20/23 21:15 12/21/23 07:36 Temperature 98.1 F 96.9 F Pulse Rate 93 106 H 75 Respiratory Rate 16 14 Blood Pressure 120/78 113/81 96/52 L Pulse Oximetry 100 98 Oxygen Delivery Method Room Air Room Air 12/21/23 08:27 Temperature Pulse Rate 75 Respiratory Rate Blood Pressure 96/52 L Pulse Oximetry Oxygen Delivery Method BMI result Body Mass Index 17.4 Labs 12/18/23 12:26 12/20/23 08:07 Labs: Laboratory Results - last 48 hr 12/19/23 12/20/23 12/20/23 19:44 08:07 17:17 ESR Sodium 141 Potassium 4.3 Chloride 104 Carbon Dioxide 29 Anion Gap 12 BUN 12 Creatinine 0.69 Estim Creat Clear Calc 72.8 Estimated GFR > 60 Fasting Glucose 91 Calcium 10.3 H 9.6 D Total Bilirubin 0.6 AST 23 ALT 20 Alkaline Phosphatase 58 Ammonia 42 C-Reactive Protein Total Protein 6.3 L Albumin 4.1 Triglycerides 36 Cholesterol 159 LDL Cholesterol, Calc 77 HDL Cholesterol 75 Vitamin B12 Folate TSH Rheumatoid Factor 12/20/23 17:18 ESR 2 Sodium Potassium Chloride Carbon Dioxide Anion Gap BUN Creatinine Estim Creat Clear Calc Estimated GFR Fasting Glucose Calcium Total Bilirubin AST ALT Alkaline Phosphatase Ammonia C-Reactive Protein < 0.04 Total Protein Albumin Triglycerides Cholesterol LDL Cholesterol, Calc HDL Cholesterol Vitamin B12 507 Folate 11.6 TSH 0.71 Rheumatoid Factor < 13.0 Medications Medications Current Medications Acetaminophen (Acetaminophen 325 Mg Tablet) 650 mg PO Q6H PRN PRN Reason: Headache/Pain Mild Scale (1-3) Al Hydroxide/Mg Hydroxide (Magnesium Hydrox/Alum Hydrox 30 Ml Oral.Susp) 30 ml PO Q6H PRN PRN Reason: Heartburn/Nausea Clonazepam (Clonazepam 1 Mg Tablet) 1 mg PO BID [facility] Last Admin: 12/21/23 08:26 Dose: 1 mg Divalproex Sodium (Divalproex Sodium 250 Mg Tablet.Dr) 250 mg PO TID [facility] Last Admin: 12/21/23 08:26 Dose: 250 mg Hydroxyzine HCl (Hydroxyzine Hcl 25 Mg Tablet) 25 mg PO Q6H PRN PRN Reason: Anxiety Magnesium Hydroxide (Milk Of Magnesia 30 Ml Oral.Susp) 30 ml PO DAILY PRN PRN Reason: Constipation Paroxetine HCl (Paroxetine Hcl 10 Mg Tablet) 10 mg PO DAILY [facility] Last Admin: 12/21/23 08:26 Dose: 10 mg Propranolol HCl (Propranolol Hcl 10 Mg Tablet) 10 mg PO TID [facility]; Protocol Last Admin: 12/21/23 08:27 Dose: Not Given Trazodone HCl (Trazodone Hcl 50 Mg Tablet) 50 mg PO BEDTIME MRX1 PRN PRN Reason: Insomnia Allergies Allergies Allergy/AdvReac Type Severity Reaction Status Date / Time No Known Allergies Allergy Verified 12/18/23 12:16 Assessment & Plan Assessment & Plan (1) MDD (major depressive disorder), recurrent episode: Status: Acute Code(s): F33.9 - Major depressive disorder, recurrent, unspecified (2) Panic disorder: Status: Acute Code(s): F41.0 - Panic disorder [episodic paroxysmal anxiety] Plan Patient is a 53 year old female with hx of MDD and panic d/o who [place] [facility] [place] [facility] at the request of secondary to increased anxiety and not being at baseline . Plan: CV 15 minute safety checks obtain collateral encourage groups continue home medications Start: Klonopin 1mg PO BID Depakote 250mg PO BID discharge planning 12/19: pt presents restless, constantly fidgeting in chair. Pt reports feeling anxious ; pt stated, I'm not sure what to say even though I want to talk to you. I want to feel comfortable in my own skin. I want to get my personality back . Pt reports she felt more like myself last evening after taking klonopin and depakote, however this morning she reports feeling the same again . Pt denies SI/HI/VH/AH. Given one time dose of Cogentin 1mg PO once and Propanolol 10mg PO once to r/o possible EPS. 12/20: Met with patient's and son with patient present. Pt retracted 3 day and signed another 3 day notice. Pt continues similar to yesterday's presentation. anxious, restless, some thought blocking. Reviewed medications and treatment plan during family meeting. Pt denies SI/HI/VH/AH. Spoke to patient's outpatient psychiatric prescriber, Denise Williamson, who reported she started seeing patient August 2023 when she was presenting manic. Pt was started on Olanzapine 10mg and Lamictal (dose went to 100mg PO daily); pt improved for roughly 3 weeks; Ms. Williamson discontinued olanzapine d/t patient improving, however pt began to decline in mood and resulted being hospitalized. Medications trials: Paxil (max of 40mg daily), Olanzapine (max of 10mg PO daily), Ativan (max of 1mg PO daily), Lamictal (max of 100mg PO daily), Seroquel (unknown dosage). DC propranolol. Start: Risperidal 1mg PO BID Cogentin 0.5mg PO BID Patient educated on: diagnosis, medication risk/benefits and therapeutic strategies Guardian/Caregiver educated on: diagnosis and medication risk/benefits Informed Consent: understands Reason for continued inpatient stay Substantial Risk for: med/psych decompensation Time Spent With Patient Time: Total time managing care of this patient today _30___ minutes.
[2023-12-21 15:02] VITALS: BP 98/58
[2023-12-21] MEDS: risperiDONE 1 MG TABLET PO ×2 (17:45→22:11)
[2023-12-21 18:00] VITALS: BP 125/82; PULSE 84; O2SAT 98
[2023-12-21 22:00] VITALS: BP 144/80; PULSE 104; RESP 18; TEMP 36.2; O2SAT 100
[2023-12-21] MEDS: Benztropine Mesylate 0.5 MG TABLET PO (22:11)
[2023-12-22 08:00] VITALS: BP 98/73; PULSE 99; RESP 16; TEMP 36.6; O2SAT 100
[2023-12-22] MEDS: risperiDONE 1 MG TABLET PO ×2 (09:11→22:13)
[2023-12-22] MEDS: Divalproex Sodium 250 MG TABLET.DR PO ×3 (09:11→22:13)
[2023-12-22] MEDS: PARoxetine HCL 10 MG TABLET PO (09:11)
[2023-12-22] MEDS: clonazePAM 1 MG TABLET PO ×2 (09:11→22:13)
[2023-12-22] MEDS: Benztropine Mesylate 0.5 MG TABLET PO ×2 (09:11→22:14)
--- NOTE | 2023-12-22 10:50 | P.PNPSI_ITS ---
Subjective Subjective Date of Service: 12/22/23 Reason For Visit: Crisis Subjective Notes: 3 Day Interim History: Reviewed with . Pt reports she continues to feel anxious; pt stated, I feel like my anxiety has improved. I'm just having a hard time in this environment . Pt presents with a wider range of affect today, no longer restless during conversation; is able to sit still in seat. Pt denies SI/HI/VH/AH. Medication Compliance: Yes Side effects from medications: No Attending Groups: Yes Review of Systems Constitutional: Reports as per HPI Eyes: Reports as per HPI Reports as per HPI Cardiovascular: Reports as per HPI Respiratory: Reports as per HPI Gastrointestinal: Reports as per HPI Musculoskeletal: Reports as per HPI Skin/Breast: Reports as per HPI Reports as per HPI Psychiatric: Reports as per HPI Endocrine: Reports as per HPI Hematologic/Lymphatic: Reports as per HPI Allergic/Immunologic: Reports as per HPI Mental Status Exam Mental Status Exam Narrative: Pt is alert and oriented; behavior is cooperative, calmer; dressed in casual attire; mood is described as anxious ; eye contact appropriate; Speech is normal rate, volume and prosody and not pressured; thought process is organized and goal directed, some thought blocking; Thought content is on tx; denies SI/HI/VH/AH. Diagnostics Vital Signs (24Hr): Vital Signs - 24 hr 12/21/23 15:02 12/21/23 18:00 12/21/23 22:00 Temperature 97.2 F Pulse Rate 84 104 H Respiratory Rate 18 Blood Pressure 98/58 L 125/82 144/80 H Pulse Oximetry 98 100 Oxygen Delivery Method Room Air 12/22/23 08:00 Temperature 97.9 F Pulse Rate 99 Respiratory Rate 16 Blood Pressure 98/73 Pulse Oximetry 100 Oxygen Delivery Method Room Air BMI result Body Mass Index 17.4 Labs 12/18/23 12:26 12/20/23 08:07 Labs: Laboratory Results - last 48 hr 12/20/23 12/20/23 17:17 17:18 ESR 2 Ammonia 42 C-Reactive Protein < 0.04 Vitamin B12 507 Folate 11.6 TSH 0.71 Rheumatoid Factor < 13.0 Medications Medications Current Medications Acetaminophen (Acetaminophen 325 Mg Tablet) 650 mg PO Q6H PRN PRN Reason: Headache/Pain Mild Scale (1-3) Al Hydroxide/Mg Hydroxide (Magnesium Hydrox/Alum Hydrox 30 Ml Oral.Susp) 30 ml PO Q6H PRN PRN Reason: Heartburn/Nausea Benztropine Mesylate (Benztropine Mesylate 0.5 Mg Tablet) 0.5 mg PO BID [facility] Last Admin: 12/22/23 09:11 Dose: 0.5 mg Clonazepam (Clonazepam 1 Mg Tablet) 1 mg PO BID [facility] Last Admin: 12/22/23 09:11 Dose: 1 mg Divalproex Sodium (Divalproex Sodium 250 Mg Tablet.Dr) 250 mg PO TID [facility] Last Admin: 12/22/23 09:11 Dose: 250 mg Hydroxyzine HCl (Hydroxyzine Hcl 25 Mg Tablet) 25 mg PO Q6H PRN PRN Reason: Anxiety Magnesium Hydroxide (Milk Of Magnesia 30 Ml Oral.Susp) 30 ml PO DAILY PRN PRN Reason: Constipation Paroxetine HCl (Paroxetine Hcl 10 Mg Tablet) 10 mg PO DAILY [facility] Last Admin: 12/22/23 09:11 Dose: 10 mg Risperidone (Risperidone 1 Mg Tablet) 1 mg PO BID [facility] Last Admin: 12/22/23 09:11 Dose: 1 mg Trazodone HCl (Trazodone Hcl 50 Mg Tablet) 50 mg PO BEDTIME MRX1 PRN PRN Reason: Insomnia Allergies Allergies Allergy/AdvReac Type Severity Reaction Status Date / Time No Known Allergies Allergy Verified 12/18/23 12:16 Assessment & Plan Assessment & Plan (1) MDD (major depressive disorder), recurrent episode: Status: Acute Code(s): F33.9 - Major depressive disorder, recurrent, unspecified (2) Panic disorder: Status: Acute Code(s): F41.0 - Panic disorder [episodic paroxysmal anxiety] Plan Patient is a 53 year old female with hx of MDD and panic d/o who presented to [facility] from [facility] at the request of secondary to increased anxiety and not being at baseline . Plan: CV 15 minute safety checks obtain collateral encourage groups continue home medications Start: Klonopin 1mg PO BID Depakote 250mg PO BID discharge planning 12/19: pt presents restless, constantly fidgeting in chair. Pt reports feeling anxious ; pt stated, I'm not sure what to say even though I want to talk to you. I want to feel comfortable in my own skin. I want to get my personality back . Pt reports she felt more like myself last evening after taking klonopin and depakote, however this morning she reports feeling the same again . Pt denies SI/HI/VH/AH. Given one time dose of Cogentin 1mg PO once and Propanolol 10mg PO once to r/o possible EPS. 12/20: Met with patient's and son with patient present. Pt retracted 3 day and signed another 3 day notice. Pt continues similar to yesterday's presentation. anxious, restless, some thought blocking. Reviewed medications and treatment plan during family meeting. Pt denies SI/HI/VH/AH. Spoke to patient's outpatient psychiatric prescriber, Denise Williamson, who reported she started seeing patient August 2023 when she was presenting manic. Pt was started on Olanzapine 10mg and Lamictal (dose went to 100mg PO daily); pt improved for roughly 3 weeks; Ms. Williamson discontinued olanzapine d/t patient improving, however pt began to decline in mood and resulted being hospitalized. Medications trials: Paxil (max of 40mg daily), Olanzapine (max of 10mg PO daily), Ativan (max of 1mg PO daily), Lamictal (max of 100mg PO daily), Seroquel (unknown dosage). DC propranolol. Start: Risperidal 1mg PO BID Cogentin 0.5mg PO BID 12/21: Pt reports she continues to feel anxious; pt stated, I feel like my anxiety has improved. I'm just having a hard time in this environment . Pt presents with a wider range of affect today, no longer restless during conversation; is able to sit still in seat. Pt denies SI/HI/VH/AH. continue current tx plan. Patient educated on: diagnosis, medication risk/benefits and therapeutic strategies Informed Consent: understands Reason for continued inpatient stay Substantial Risk for: med/psych decompensation Time Spent With Patient Time: Total time managing care of this patient today _20___ minutes.
[2023-12-22 22:00] VITALS: BP 112/71; PULSE 89; RESP 16; TEMP 36.5; O2SAT 100
[2023-12-23 08:18] LABS: Anti Nuclear Antibody Screen NEGATIVE (NEGATIVE)
[2023-12-23] MEDS: Divalproex Sodium 250 MG TABLET.DR PO ×3 (08:33→21:30)
[2023-12-23] MEDS: clonazePAM 1 MG TABLET PO ×2 (08:33→21:29)
[2023-12-23] MEDS: Benztropine Mesylate 0.5 MG TABLET PO ×2 (08:34→21:30)
[2023-12-23] MEDS: risperiDONE 1 MG TABLET PO ×2 (08:34→21:29)
[2023-12-23] MEDS: PARoxetine HCL 10 MG TABLET PO (08:34)
[2023-12-23 08:35] VITALS: BP 100/69; PULSE 93; RESP 14; TEMP 37.2; O2SAT 100
--- NOTE | 2023-12-23 08:35 | HO.PSYCHPN ---
Subjective Subjective Date of Service: 12/23/23 Reason For Visit: Crisis Subjective Notes: 3 Day Interim History: Reviewed with . Pt presents improved from days prior. Pt reports feeling calm and not anxious ; pt stated, I haven't felt this normal in five months . Pt denies SI/HI/VH/AH. social with peers, attending groups. Medication Compliance: Yes Side effects from medications: No Attending Groups: Yes Review of Systems Constitutional: Reports as per HPI Eyes: Reports as per HPI Reports as per HPI Cardiovascular: Reports as per HPI Respiratory: Reports as per HPI Gastrointestinal: Reports as per HPI Musculoskeletal: Reports as per HPI Skin/Breast: Reports as per HPI Reports as per HPI Psychiatric: Reports as per HPI Endocrine: Reports as per HPI Hematologic/Lymphatic: Reports as per HPI Allergic/Immunologic: Reports as per HPI Mental Status Exam Mental Status Exam Narrative: Pt is alert and oriented; behavior is cooperative, calm, pleasant; dressed in casual attire; mood is described as better ; eye contact appropriate; Speech is normal rate, volume and prosody and not pressured; thought process is organized and goal directed; Thought content is on tx; denies SI/HI/VH/AH. Diagnostics Vital Signs (24Hr): Vital Signs - 24 hr 12/22/23 22:00 Temperature 97.7 F Pulse Rate 89 Respiratory Rate 16 Blood Pressure 112/71 Pulse Oximetry 100 Oxygen Delivery Method Room Air BMI result Body Mass Index 17.4 Labs 12/18/23 12:26 12/20/23 08:07 Labs: Laboratory Results - last 48 hr 12/20/23 17:18 GIBSON Screen NEGATIVE Medications Medications Current Medications Acetaminophen (Acetaminophen 325 Mg Tablet) 650 mg PO Q6H PRN PRN Reason: Headache/Pain Mild Scale (1-3) Al Hydroxide/Mg Hydroxide (Magnesium Hydrox/Alum Hydrox 30 Ml Oral.Susp) 30 ml PO Q6H PRN PRN Reason: Heartburn/Nausea Benztropine Mesylate (Benztropine Mesylate 0.5 Mg Tablet) 0.5 mg PO BID [facility] Last Admin: 12/22/23 22:14 Dose: 0.5 mg Clonazepam (Clonazepam 1 Mg Tablet) 1 mg PO BID [facility] Last Admin: 12/22/23 22:13 Dose: 1 mg Divalproex Sodium (Divalproex Sodium 250 Mg Tablet.) 250 mg PO TID [facility] Last Admin: 12/22/23 22:13 Dose: 250 mg Hydroxyzine HCl (Hydroxyzine Hcl 25 Mg Tablet) 25 mg PO Q6H PRN PRN Reason: Anxiety Magnesium Hydroxide (Milk Of Magnesia 30 Ml Oral.Susp) 30 ml PO DAILY PRN PRN Reason: Constipation Paroxetine HCl (Paroxetine Hcl 10 Mg Tablet) 10 mg PO DAILY [facility] Last Admin: 12/22/23 09:11 Dose: 10 mg Risperidone (Risperidone 1 Mg Tablet) 1 mg PO BID [facility] Last Admin: 12/22/23 22:13 Dose: 1 mg Trazodone HCl (Trazodone Hcl 50 Mg Tablet) 50 mg PO BEDTIME MRX1 PRN PRN Reason: Insomnia Allergies Allergies Allergy/AdvReac Type Severity Reaction Status Date / Time No Known Allergies Allergy Verified 12/18/23 12:16 Assessment & Plan Assessment & Plan (1) MDD (major depressive disorder), recurrent episode: Status: Acute Code(s): F33.9 - Major depressive disorder, recurrent, unspecified (2) Panic disorder: Status: Acute Code(s): F41.0 - Panic disorder [episodic paroxysmal anxiety] Plan Patient is a 53 year old female with hx of MDD and panic d/o who presented to [facility] from [facility] at the request of secondary to increased anxiety and not being at baseline . Plan: CV 15 minute safety checks obtain collateral encourage groups continue home medications Start: Klonopin 1mg PO BID Depakote 250mg PO BID discharge planning 12/19: pt presents restless, constantly fidgeting in chair. Pt reports feeling anxious ; pt stated, I'm not sure what to say even though I want to talk to you. I want to feel comfortable in my own skin. I want to get my personality back . Pt reports she felt more like myself last evening after taking klonopin and depakote, however this morning she reports feeling the same again . Pt denies SI/HI/VH/AH. Given one time dose of Cogentin 1mg PO once and Propanolol 10mg PO once to r/o possible EPS. 12/20: Met with patient's and son with patient present. Pt retracted 3 day and signed another 3 day notice. Pt continues similar to yesterday's presentation. anxious, restless, some thought blocking. Reviewed medications and treatment plan during family meeting. Pt denies SI/HI/VH/AH. Spoke to patient's outpatient psychiatric prescriber, Denise Williamson, who reported she started seeing patient August 2023 when she was presenting manic. Pt was started on Olanzapine 10mg and Lamictal (dose went to 100mg PO daily); pt improved for roughly 3 weeks; Ms. Williamson discontinued olanzapine d/t patient improving, however pt began to decline in mood and resulted being hospitalized. Medications trials: Paxil (max of 40mg daily), Olanzapine (max of 10mg PO daily), Ativan (max of 1mg PO daily), Lamictal (max of 100mg PO daily), Seroquel (unknown dosage). DC propranolol. Start: Risperidal 1mg PO BID Cogentin 0.5mg PO BID 12/21: Pt reports she continues to feel anxious; pt stated, I feel like my anxiety has improved. I'm just having a hard time in this environment . Pt presents with a wider range of affect today, no longer restless during conversation; is able to sit still in seat. Pt denies SI/HI/VH/AH. continue current tx plan. 12/22: Pt presents improved from days prior. Pt reports feeling calm and not anxious ; pt stated, I haven't felt this normal in five months . Pt denies SI/HI/VH/AH. social with peers, attending groups. Patient educated on: diagnosis, medication risk/benefits and therapeutic strategies Informed Consent: understands Reason for continued inpatient stay Substantial Risk for: med/psych decompensation Time Spent With Patient Time: Total time managing care of this patient today _20___ minutes.
[2023-12-23 21:20] VITALS: BP 109/74; PULSE 86; RESP 16; TEMP 35.8; O2SAT 100
[2023-12-24 07:39] VITALS: BP 118/76; PULSE 88; RESP 14; TEMP 37; O2SAT 98
[2023-12-24] MEDS: PARoxetine HCL 10 MG TABLET PO (08:28)
[2023-12-24] MEDS: risperiDONE 1 MG TABLET PO ×2 (08:29→21:18)
[2023-12-24] MEDS: Benztropine Mesylate 0.5 MG TABLET PO ×2 (08:29→21:19)
[2023-12-24] MEDS: Divalproex Sodium 250 MG TABLET.DR PO ×3 (08:29→21:19)
[2023-12-24] MEDS: clonazePAM 1 MG TABLET PO ×2 (08:29→21:18)
[2023-12-24 09:04] LABS: Ammonia 20 umol/L (13-55)
[2023-12-24 09:09] LABS: Valproate 62.2 mcg/mL (50.0-100.0)
[2023-12-24 09:13] LABS: Alanine Aminotransferase 19 U/L (0-31); Albumin Level 4.5 g/dL (3.5-5.0); Alkaline Phosphatase 66 U/L (39-117); Aspartate Amino Transferase 19 U/L (5-31); Bilirubin Direct 0.2 mg/dL (0.0-0.5); Bilirubin Total 0.6 mg/dL (0.0-1.0)
--- NOTE | 2023-12-24 09:20 | P.PNPSI_ITS ---
Subjective Subjective Date of Service: 12/24/23 Reason For Visit: Crisis Subjective Notes: 3 Day Interim History: Reviewed with . active on unit, social with peers, attending groups. Pt reports feeling pretty good ; pt stated, I feel more like my self; Everyday seems to be a bit better . Pt reports she is sleeping better than I have in awhile . Pt denies SI/HI/VH/AH. Pt requested for medications to be BID rather than TID, to make it easier for compliance when discharged. Valproic acid level 62.2 on 12/24/2023. Changed: Depakote 750mg PO bedtime Klonopin 0.5mg PO daily Klonopin 1mg PO bedtime Medication Compliance: Yes Side effects from medications: No Attending Groups: Yes Review of Systems Constitutional: Reports as per HPI Eyes: Reports as per HPI Reports as per HPI Cardiovascular: Reports as per HPI Respiratory: Reports as per HPI Gastrointestinal: Reports as per HPI Genitourinary: Reports as per HPI Musculoskeletal: Reports as per HPI Skin/Breast: Reports as per HPI Reports as per HPI Psychiatric: Reports as per HPI Endocrine: Reports as per HPI Hematologic/Lymphatic: Reports as per HPI Allergic/Immunologic: Reports as per HPI Mental Status Exam Mental Status Exam Narrative: Pt is alert and oriented; behavior is cooperative, calm, pleasant; dressed in casual attire; mood is described as better ; eye contact appropriate; Speech is normal rate, volume and prosody and not pressured; thought process is organized and goal directed; Thought content is on tx; denies SI/HI/VH/AH. Diagnostics Vital Signs (24Hr): Vital Signs - 24 hr 12/23/23 21:20 12/24/23 07:39 Temperature 96.5 F L 98.6 F Pulse Rate 86 88 Respiratory Rate 16 14 Blood Pressure 109/74 118/76 Pulse Oximetry 100 98 Oxygen Delivery Method Room Air Room Air BMI result Body Mass Index 17.4 Labs 12/18/23 12:26 12/20/23 08:07 Labs: Laboratory Results - last 48 hr 12/20/23 12/24/23 17:18 08:34 Total Bilirubin 0.6 Direct Bilirubin 0.2 AST 19 ALT 19 Alkaline Phosphatase 66 Ammonia 20 Total Protein 7.0 Albumin 4.5 Valproic Acid 62.2 GIBSON Screen NEGATIVE Medications Medications Current Medications Acetaminophen (Acetaminophen 325 Mg Tablet) 650 mg PO Q6H PRN PRN Reason: Headache/Pain Mild Scale (1-3) Al Hydroxide/Mg Hydroxide (Magnesium Hydrox/Alum Hydrox 30 Ml Oral.Susp) 30 ml PO Q6H PRN PRN Reason: Heartburn/Nausea Benztropine Mesylate (Benztropine Mesylate 0.5 Mg Tablet) 0.5 mg PO BID [facility] Last Admin: 12/24/23 08:29 Dose: 0.5 mg Clonazepam (Clonazepam 1 Mg Tablet) 1 mg PO BID [facility] Last Admin: 12/24/23 08:29 Dose: 1 mg Divalproex Sodium (Divalproex Sodium 250 Mg Tablet.) 250 mg PO TID [facility] Last Admin: 12/24/23 08:29 Dose: 250 mg Hydroxyzine HCl (Hydroxyzine Hcl 25 Mg Tablet) 25 mg PO Q6H PRN PRN Reason: Anxiety Magnesium Hydroxide (Milk Of Magnesia 30 Ml Oral.Susp) 30 ml PO DAILY PRN PRN Reason: Constipation Paroxetine HCl (Paroxetine Hcl 10 Mg Tablet) 10 mg PO DAILY [facility] Last Admin: 12/24/23 08:28 Dose: 10 mg Risperidone (Risperidone 1 Mg Tablet) 1 mg PO BID [facility] Last Admin: 12/24/23 08:29 Dose: 1 mg Trazodone HCl (Trazodone Hcl 50 Mg Tablet) 50 mg PO BEDTIME MRX1 PRN PRN Reason: Insomnia Allergies Allergies Allergy/AdvReac Type Severity Reaction Status Date / Time No Known Allergies Allergy Verified 12/18/23 12:16 Assessment & Plan Assessment & Plan (1) MDD (major depressive disorder), recurrent episode: Status: Acute Code(s): F33.9 - Major depressive disorder, recurrent, unspecified (2) Panic disorder: Status: Acute Code(s): F41.0 - Panic disorder [episodic paroxysmal anxiety] Plan Patient is a 53 year old female with hx of MDD and panic d/o who presented to [facility] from [facility] at the request of secondary to increased anxiety and not being at baseline . Plan: CV 15 minute safety checks obtain collateral encourage groups continue home medications Start: Klonopin 1mg PO BID Depakote 250mg PO BID discharge planning 12/19: pt presents restless, constantly fidgeting in chair. Pt reports feeling anxious ; pt stated, I'm not sure what to say even though I want to talk to you. I want to feel comfortable in my own skin. I want to get my personality back . Pt reports she felt more like myself last evening after taking klonopin and depakote, however this morning she reports feeling the same again . Pt denies SI/HI/VH/AH. Given one time dose of Cogentin 1mg PO once and Propanolol 10mg PO once to r/o possible EPS. 12/20: Met with patient's and son with patient present. Pt retracted 3 day and signed another 3 day notice. Pt continues similar to yesterday's presentation. anxious, restless, some thought blocking. Reviewed medications and treatment plan during family meeting. Pt denies SI/HI/VH/AH. Spoke to patient's outpatient psychiatric prescriber, Denisejames Williamson, who reported she started seeing patient August 2023 when she was presenting manic. Pt was started on Olanzapine 10mg and Lamictal (dose went to 100mg PO daily); pt improved for roughly 3 weeks; Ms. Williamson discontinued olanzapine d/t patient improving, however pt began to decline in mood and resulted being hospitalized. Medications trials: Paxil (max of 40mg daily), Olanzapine (max of 10mg PO daily), Ativan (max of 1mg PO daily), Lamictal (max of 100mg PO daily), Seroquel (unknown dosage). DC propranolol. Start: Risperidal 1mg PO BID Cogentin 0.5mg PO BID 12/21: Pt reports she continues to feel anxious; pt stated, I feel like my anxiety has improved. I'm just having a hard time in this environment . Pt presents with a wider range of affect today, no longer restless during conversation; is able to sit still in seat. Pt denies SI/HI/VH/AH. continue current tx plan. 12/22: Pt presents improved from days prior. Pt reports feeling calm and not anxious ; pt stated, I haven't felt this normal in five months . Pt denies SI/HI/VH/AH. social with peers, attending groups. 12/23: active on unit, social with peers, attending groups. Pt reports feeling pretty good ; pt stated, I feel more like my self; Everyday seems to be a bit better . Pt reports she is sleeping better than I have in awhile . Pt denies SI/HI/VH/AH. Pt requested for medications to be BID rather than TID, to make it easier for compliance when discharged. Valproic acid level 62.2 on 12/24/2023. Changed: Depakote 750mg PO bedtime Klonopin 0.5mg PO daily Klonopin 1mg PO bedtime Patient educated on: diagnosis, medication risk/benefits and therapeutic strategies Informed Consent: understands Reason for continued inpatient stay Substantial Risk for: med/psych decompensation Time Spent With Patient Time: Total time managing care of this patient today _20___ minutes.
[2023-12-24 19:55] VITALS: BP 111/72; PULSE 96; RESP 16; TEMP 36.1; O2SAT 100
[2023-12-24 20:00] VITALS: BP 111/72; PULSE 96; RESP 16; TEMP 36.1; O2SAT 100
--- NOTE | 2023-12-25 | ECG_ITS ---
Test Reason : QTC CHECK Blood Pressure : / mmHG Vent. Rate : 098 BPM Atrial Rate : 098 BPM P-R Int : 126 ms QRS Dur : 100 ms QT Int : 338 ms P-R-T Axes : 077 084 060 degrees QTc Int : 431 ms Sinus rhythm with marked sinus arrhythmia Incomplete right bundle branch block Possible Lateral infarct , age undetermined Abnormal ECG When compared with ECG of 19-DEC-2023 06:41, No significant change was found Referred By: Esha Mendez Electronically Signed By:YINKA ERICKSON MD
[2023-12-25 08:25] VITALS: BP 115/67; PULSE 129; RESP 18; TEMP 36.7; O2SAT 100
[2023-12-25] MEDS: Benztropine Mesylate 0.5 MG TABLET PO ×2 (08:34→22:00)
[2023-12-25] MEDS: clonazePAM 0.5 MG TABLET PO (08:34)
[2023-12-25] MEDS: PARoxetine HCL 10 MG TABLET PO (08:34)
[2023-12-25] MEDS: risperiDONE 1 MG TABLET PO ×2 (08:34→21:59)
--- NOTE | 2023-12-25 11:06 | HO.PSYCHPN ---
Subjective Subjective Date of Service: 12/25/23 Reason For Visit: Crisis Subjective Notes: Conditional Voluntary Interim History: Pt slept through the night. Her HR was high this morning. She denies chest pain, mild palpitations. Repeat EKG, no significant changes from previous EKG. She denies SI/HI. No VH/AH. No over delusional content noted or reported. She is ready for discharge tomorrow. Medication Compliance: Yes Review of Systems Review of Systems All other systems are reviewed and are negative Constitutional: Reports as per HPI and Reports no additional constitutional complaints Eyes: Reports as per HPI and Reports no additional eye complaints Reports system reviewed and no additional complaints, except as documented Cardiovascular: Reports as per HPI and Reports no additional cardiovascular complaints Respiratory: Reports as per HPI and Reports no additional respiratory complaints Gastrointestinal: Reports as per HPI and Reports no additional gastrointestinal complaints Genitourinary: Reports no additional female genitourinary complaints Musculoskeletal: Reports no additional musculoskeletal complaints Skin/Breast: Reports system reviewed and no additional complaints, except as docu Psychiatric: Reports no additional psychiatric complaints Endocrine: Reports no additional endocrine complaints Hematologic/Lymphatic: Reports no additional hematologic/lymphatic complaints Allergic/Immunologic: Reports no additional allergic/immunologic complaints Reports system reviewed and no additional complaints, except as documented and Reports Abnormal speech present Constitutional: Reports as per HPI Eyes: Reports as per HPI Reports as per HPI Cardiovascular: Reports as per HPI Respiratory: Reports as per HPI Gastrointestinal: Reports as per HPI Musculoskeletal: Reports as per HPI Skin/Breast: Reports as per HPI Reports as per HPI Psychiatric: Reports as per HPI Endocrine: Reports as per HPI Hematologic/Lymphatic: Reports as per HPI Allergic/Immunologic: Reports as per HPI Mental Status Exam Mental Status Exam Narrative: Pt is alert and oriented x 4; behavior is cooperative, calm, pleasant; dressed in casual attire; mood is described as better ; eye contact appropriate; Speech is normal rate, volume and prosody and not pressured; thought process is organized and goal directed; Thought content is on tx; denies SI/HI/VH/AH. Diagnostics Vital Signs (24Hr): Vital Signs - 24 hr 12/24/23 19:55 12/24/23 20:00 12/25/23 08:25 Temperature 97 F 97 F 98.1 F Pulse Rate 96 96 129 H Respiratory Rate 16 16 18 Blood Pressure 111/72 111/72 115/67 Pulse Oximetry 100 100 100 Oxygen Delivery Method Room Air Room Air Room Air BMI result Body Mass Index 17.4 Labs 12/18/23 12:26 12/20/23 08:07 Labs: Laboratory Results - last 48 hr 12/20/23 12/24/23 17:18 08:34 Total Bilirubin 0.6 Direct Bilirubin 0.2 AST 19 ALT 19 Alkaline Phosphatase 66 Ammonia 20 Total Protein 7.0 Albumin 4.5 Valproic Acid 62.2 GIBSON Titer TNP GIBSON Titer 2 TNP GIBSON Titer 3 TNP GIBSON Pattern TNP GIBSON Pattern 2 TNP GIBSON Pattern 3 TNP Medications Medications Current Medications Acetaminophen (Acetaminophen 325 Mg Tablet) 650 mg PO Q6H PRN PRN Reason: Headache/Pain Mild Scale (1-3) Al Hydroxide/Mg Hydroxide (Magnesium Hydrox/Alum Hydrox 30 Ml Oral.Susp) 30 ml PO Q6H PRN PRN Reason: Heartburn/Nausea Benztropine Mesylate (Benztropine Mesylate 0.5 Mg Tablet) 0.5 mg PO BID [facility] Last Admin: 12/25/23 08:34 Dose: 0.5 mg Clonazepam (Clonazepam 0.5 Mg Tablet) 0.5 mg PO DAILY [facility] Last Admin: 12/25/23 08:34 Dose: 0.5 mg Clonazepam (Clonazepam 1 Mg Tablet) 1 mg PO BEDTIME [facility] Divalproex Sodium (Divalproex Sodium 250 Mg Tablet.Dr) 750 mg PO BEDTIME [facility] Hydroxyzine HCl (Hydroxyzine Hcl 25 Mg Tablet) 25 mg PO Q6H PRN PRN Reason: Anxiety Magnesium Hydroxide (Milk Of Magnesia 30 Ml Oral.Susp) 30 ml PO DAILY PRN PRN Reason: Constipation Paroxetine HCl (Paroxetine Hcl 10 Mg Tablet) 10 mg PO DAILY [facility] Last Admin: 12/25/23 08:34 Dose: 10 mg Risperidone (Risperidone 1 Mg Tablet) 1 mg PO BID [facility] Last Admin: 12/25/23 08:34 Dose: 1 mg Allergies Allergies Allergy/AdvReac Type Severity Reaction Status Date / Time No Known Allergies Allergy Verified 12/18/23 12:16 Assessment & Plan Assessment & Plan (1) Bipolar 1 disorder, depressed, severe: Status: Acute Code(s): F31.4 - Bipolar disorder, current episode depressed, severe, without psychotic features Plan Patient is a 53 year old female with hx of MDD and panic d/o who presented to [facility] from [facility] at the request of secondary to increased anxiety and not being at baseline . Plan: CV 15 minute safety checks obtain collateral encourage groups continue home medications Start: Klonopin 1mg PO BID Depakote 250mg PO BID discharge planning 12/19: pt presents restless, constantly fidgeting in chair. Pt reports feeling anxious ; pt stated, I'm not sure what to say even though I want to talk to you. I want to feel comfortable in my own skin. I want to get my personality back . Pt reports she felt more like myself last evening after taking klonopin and depakote, however this morning she reports feeling the same again . Pt denies SI/HI/VH/AH. Given one time dose of Cogentin 1mg PO once and Propanolol 10mg PO once to r/o possible EPS. 12/20: Met with patient's and son with patient present. Pt retracted 3 day and signed another 3 day notice. Pt continues similar to yesterday's presentation. anxious, restless, some thought blocking. Reviewed medications and treatment plan during family meeting. Pt denies SI/HI/VH/AH. Spoke to patient's outpatient psychiatric prescriber, Denise Shimonnicolealeksandra, who reported she started seeing patient August 2023 when she was presenting manic. Pt was started on Olanzapine 10mg and Lamictal (dose went to 100mg PO daily); pt improved for roughly 3 weeks; Ms. Williamson discontinued olanzapine d/t patient improving, however pt began to decline in mood and resulted being hospitalized. Medications trials: Paxil (max of 40mg daily), Olanzapine (max of 10mg PO daily), Ativan (max of 1mg PO daily), Lamictal (max of 100mg PO daily), Seroquel (unknown dosage). DC propranolol. Start: Risperidal 1mg PO BID Cogentin 0.5mg PO BID 12/21: Pt reports she continues to feel anxious; pt stated, I feel like my anxiety has improved. I'm just having a hard time in this environment . Pt presents with a wider range of affect today, no longer restless during conversation; is able to sit still in seat. Pt denies SI/HI/VH/AH. continue current tx plan. 12/22: Pt presents improved from days prior. Pt reports feeling calm and not anxious ; pt stated, I haven't felt this normal in five months . Pt denies SI/HI/VH/AH. social with peers, attending groups. 12/23: active on unit, social with peers, attending groups. Pt reports feeling pretty good ; pt stated, I feel more like my self; Everyday seems to be a bit better . Pt reports she is sleeping better than I have in awhile . Pt denies SI/HI/VH/AH. Pt requested for medications to be BID rather than TID, to make it easier for compliance when discharged. Valproic acid level 62.2 on 12/24/2023. Changed: Depakote 750mg PO bedtime Klonopin 0.5mg PO daily Klonopin 1mg PO bedtime 12/24 continue tx. Reason for continued inpatient stay Substantial Risk for: stable for discharge Time Spent With Patient Time: Total time managing care of this patient today ____ minutes.
[2023-12-25 20:00] VITALS: BP 110/65; PULSE 111; RESP 16; TEMP 37; O2SAT 98
[2023-12-25] MEDS: clonazePAM 1 MG TABLET PO (21:58)
[2023-12-25] MEDS: Divalproex Sodium 250 MG TABLET.DR 750 MG PO (21:59)
[2023-12-26 07:42] VITALS: BP 92/66; PULSE 90; RESP 16; TEMP 35.5; O2SAT 100
[2023-12-26] MEDS: PARoxetine HCL 10 MG TABLET PO (08:43)
[2023-12-26] MEDS: clonazePAM 0.5 MG TABLET PO (08:43)
[2023-12-26] MEDS: risperiDONE 1 MG TABLET PO (08:43)
[2023-12-26] MEDS: Benztropine Mesylate 0.5 MG TABLET PO (08:52)
--- NOTE | 2023-12-26 08:56 | P.DS_ITS ---
DS: Providers Provider Date of Service: 12/26/23 Date of admission: 12/19/23 12:57 Date of discharge: 12/26/23 Primary care physician: Nitesh Rosenberg MD Discharging clinician: Esha Mendez DS: Diagnosis Discharge Diagnosis (1) Bipolar 1 disorder, depressed, severe: Status: Acute DS: Medications Discharge Medications Home Medications: Previous Rx's ?Medication ?Instructions ?Recorded benztropine 0.5 mg tablet 0.5 mg PO BID #60 tabs 12/26/23 clonazepam 0.5 mg tablet 0.5 mg PO DAILY #30 tabs 12/26/23 clonazepam 1 mg tablet 1 mg PO BEDTIME #30 tabs 12/26/23 divalproex 250 mg tablet,delayed 750 mg (3 x 250 mg) PO BEDTIME #90 12/26/23 release tabs paroxetine HCl 10 mg tablet 10 mg PO DAILY #30 tabs 12/26/23 risperidone 1 mg tablet 1 mg PO BID #60 tabs 12/26/23 Mental Status Exam Mental Status Exam Narrative: Pt is alert and oriented x 4; behavior is cooperative, calm, pleasant; dressed in casual attire; mood is described as better ; eye contact appropriate; Speech is normal rate, volume and prosody and not pressured; thought process is organized and goal directed; Thought content is on tx; denies SI/HI/VH/AH. Data Data Completed and Pending Completed studies during hospitalization [Text1]: 12/19/23 12/20/23 12/20/23 19:44 08:07 17:17 ESR Sodium 141 Potassium 4.3 Chloride 104 Carbon Dioxide 29 Anion Gap 12 BUN 12 Creatinine 0.69 Estim Creat Clear Calc 72.8 Estimated GFR > 60 Fasting Glucose 91 Calcium 10.3 H 9.6 D Total Bilirubin 0.6 Direct Bilirubin AST 23 ALT 20 Alkaline Phosphatase 58 Ammonia 42 C-Reactive Protein Total Protein 6.3 L Albumin 4.1 Triglycerides 36 Cholesterol 159 LDL Cholesterol, Calc 77 HDL Cholesterol 75 Vitamin B12 Folate TSH Valproic Acid Rheumatoid Factor GIBSON Screen GIBSON Titer GIBSON Titer 2 GIBSON Titer 3 GIBSON Pattern GIBSON Pattern 2 GIBSON Pattern 3 12/20/23 12/24/23 17:18 08:34 ESR 2 Sodium Potassium Chloride Carbon Dioxide Anion Gap BUN Creatinine Estim Creat Clear Calc Estimated GFR Fasting Glucose Calcium Total Bilirubin 0.6 Direct Bilirubin 0.2 AST 19 ALT 19 Alkaline Phosphatase 66 Ammonia 20 C-Reactive Protein < 0.04 Total Protein 7.0 Albumin 4.5 Triglycerides Cholesterol LDL Cholesterol, Calc HDL Cholesterol Vitamin B12 507 Folate 11.6 TSH 0.71 Valproic Acid 62.2 Rheumatoid Factor < 13.0 GIBSON Screen NEGATIVE GIBSON Titer TNP GIBSON Titer 2 TNP GIBSON Titer 3 TNP GIBSON Pattern TNP GIBSON Pattern 2 TNP GIBSON Pattern 3 TNP 12/18/23 Unknown Urine clean catch - Urine duke top Urine Culture - Final Streptococcus viridans group DS: Summary Hospital Course Hospital Course: Patient is a 53 year old female with hx of MDD and panic d/o who presented to [facility] from [facility] at the request of secondary to increased anxiety and not being at baseline . Per crisis report, pt reported recently trialing different medications without relief. patient attempted to engaged in PHP however, the group setting increased her anxiety and did not feel as though it was an appropriate fit. This is patient's first inpatient psychiatric hospitalization. pt denies any substance use; UTOX negative. During admission assessment, pt presents restless and anxious. Continuously pacing room, sitting in chair and getting up again. Pt reports feeling anxious ; pt stated, I was feeling agitated and panicky. I've been feeling this way for a couple months. My panic attacks are getting out of control where I can't make decisions . Pt reports her outpatient psychiatric provider has been trialing various medications but has yet to find a combination that has been beneficial. Pt reports she was previously taking Paxil 25mg for the last 25 years and it was helping until recently . Pt reports she doesn't want to be in the hospital and just wants to go home . Pt denies SI/HI/VH/AH. Pt signed 3 day notice. Pt reports she is open to trying anything to help ; discussed risks/benefits of Depakote; pt agreed to trial. 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 (on Paxil) HOSPITAL COURSE On the unit, pt was admitted on a CV and placed on 15 minutes checks for safety. Pt was admitted under the care of Mariella Castro NP. This ticket writer is covering last 2 days of admission. For further detail about hospital course please refer to Matthew's note. In brief, Mrs. Contreras is a 53 year-old woman who presented with severe anxious mood, restlessness, unable to stay still, poor sleep. No overt psychosis or delusional content noted or reported. Pt came on combination of olanzapine and ativan. She had been on low dose paxil for several years. After discussing risks, benefits and alternative treatment options, pt agreed to switch olanzapine to risperidone. She was started on depakote for mood stabilization and ativan was switched to clonazepam. She was continued on low dose paxil. Her affect gradually presented as less anxious and less restless. She was sleeping much better at night. She able to attend and appropriately participate in assigned groups. She denied SI/HI. No VH/AH. She did not appear to have side effects of current medication regimen. Status at Discharge Cognitive/behavioral status at discharge: Pt with bright, non labile affect. No SI/HI. No signs of psychosis or delusions. Sleeping and eating well. No aggression towards self or others. Functional status at discharge: independent ambulation Overall status at discharge: patient is progressing back to baseline Time Spent with Patient Time attestation: Total time managing care of this patient today _35___ minutes. Time spent: Greater than 30 minutes Discharge Plan Discharge Anticipated Discharge Date/Time: 12/26/23 08:46 Patient Disposition: Home, Self-Care Discharge Diagnosis: Bipolar 1 Disorder Referrals: [facility]-Issa Contreras (Therapy-Intake) [Other] - 12/27/23 11:00 am (Please arrive 15 minutes early to complete intake paperwork ) Denise Williamson- Psychiatric Provider [Other] - 12/28/23 8:30 am Nitesh Rosenberg MD [Primary Care Provider] - 01/11/24 3:00 pm Discharge Medications: New paroxetine HCl 10 mg Tablet 10 mg PO DAILY Qty: 30 0RF benztropine 0.5 mg Tablet 0.5 mg PO BID Qty: 60 0RF divalproex 250 mg Tablet,Delayed Release (Dr/Ec) 750 mg PO BEDTIME Qty: 90 0RF clonazepam 0.5 mg Tablet 0.5 mg PO DAILY Qty: 30 0RF clonazepam 1 mg Tablet 1 mg PO BEDTIME Qty: 30 0RF risperidone 1 mg Tablet 1 mg PO BID Qty: 60 0RF Discontinued paroxetine HCl 10 mg tablet 10 mg PO DAILY olanzapine 10 mg tablet 10 mg PO BEDTIME Patient Comments: Pharmacy stated last filled 12/07/23 7.5 mg at bedtime. Patient stated that she is currently taking 10 mg at bedtime. lorazepam 0.5 mg tablet 0.5 mg PO BID PRN (Reason: Anxiety) Rx Instructions: Take 2 tabs in the AM and one tab in the evening for 7 days then take 0.5 mg BID PRN. Discharge Orders: Discharge Order (Routine); Ordered 12/26/23 Ordered By: Esha Mendez Diet: Regular diet Activity on Discharge: As tolerated Stand Alone Forms: Patient Portal Discharge page, Community Support Print Language: Mongolian Care Plan Goals: 1. Maintain mood 2. No SI/HI 3. No psychosis or delusions Health Concerns: follow up with PCP Plan of Treatment: 1. continue taking medications as prescribed/ 2. go to nearest ED or call 911 in event of emergency. Assessment: pt with bright, non labile affect. No SI/HI. No signs of psychosis or delusions. Sleeping and eating well. Discharge Date/Time: 12/26/23 10:40
== END 2023-12-26 10:40 | disposition home or self-care (01) | DRG 753 ==
LOC: HO.ED 12-19 00:59 → HO.PADLT16 12-19 13:00
PROVIDERS: Admitting Provider Registered Nurse; Emergency Provider Emergency Medicine; PCP Internal Medicine; Responsible Provider Registered Nurse; Visit Provider Psychiatry & Neurology Psychiatry
DX: F31.4 Bipolar disorder, current episode depressed, severe, without psychotic features (principal); F41.0 Panic disorder [episodic paroxysmal anxiety]; Z79.899 Other long term (current) drug therapy
CPT/HCPCS: 36415; 80053; 80061; 80076; 80143; 80164; 80179; 80307; 81001; 81025; 82140; 82310; 82607; 82746; 84443; 85025; 85652; 86038; 86140; 86431; 87086; 87147; 93005; 99285; S9485

== ENCOUNTER → 2023-12-19 06:34 | Outpatient (BNV) | payer BC, SELFPAY | PROVIDERS: Admitting Provider Registered Nurse; Emergency Provider Emergency Medicine; PCP Internal Medicine; Responsible Provider Registered Nurse; Visit Provider Internal Medicine Cardiovascular Disease | DX: R00.0 Tachycardia, unspecified (principal) | CPT/HCPCS: 93010 ==

== ENCOUNTER 2023-12-19 12:57 | Outpatient (BNV) | payer BC, SELFPAY | END 2023-12-25 11:21 | PROVIDERS: Admitting Provider Registered Nurse; Emergency Provider Emergency Medicine; PCP Internal Medicine; Responsible Provider Registered Nurse; Visit Provider Internal Medicine Cardiovascular Disease | DX: R94.31 Abnormal electrocardiogram [ECG] [EKG] (principal) | CPT/HCPCS: 93010 ==

== ENCOUNTER → 2023-12-19 12:57 | Outpatient (BNV) | payer BC, SELFPAY | PROVIDERS: Admitting Provider Registered Nurse; Emergency Provider Emergency Medicine; PCP Internal Medicine; Responsible Provider Registered Nurse; Visit Provider Registered Nurse | DX: F31.4 Bipolar disorder, current episode depressed, severe, without psychotic features (principal) | CPT/HCPCS: 90792; 99231; 99232; 99239 ==

== ENCOUNTER 2024-02-26 09:17 | Outpatient (AMB) | payer BC, SELFPAY ==
--- NOTE | 2024-02-26 09:32 | A.OFFVIS_ITS ---
Vital Signs 02/26/24 09:34 Height 5 ft 6 in Weight 107 lb BMI 17.3 BP 106/62 Blood Pressure Location Rt brachial Position Sitting Respiration 16 Pulse 117 H Pulse Source Pulse Oximeter Pulse Oximetry (%) 98 Oxygen Delivery Method Room Air Intake Visit Reasons: Per URGENT Intake Note: Pt presents for new pt evaluation for anxiety. Senior Hris Analyst Required: No Allergies No Known Allergies Allergy (Verified 02/26/24 09:39) HPI Comments Details: 53y/o female with h/o anxiety disorder , recently diagnosed with Bipolar comes for evaluation of inner restlessness, anxiety, tremors etc. She has h/o of anxiety diagnosed , she had panic attacks 23 years ago and has been stable on Paxil until 7 months ago . she had flu 7 mths ago - recovered well, she had stopped her hormone replacement 9mths ago- restarted 1 month ago. SInce then her anxiety increased, panic attacks , paranoid- she was referred to a supervisor rose grading-she was hospitalized briefly - now she is on depakote , quetiapine,benztropine, lorazepam she was trialed on risperdal, olanzepine etc. She does not feel good, unable to focus, has trouble follow simple directions, her mind feels cluttered, anxious, ruminates, tremors. 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 she is able to sleep with medications but the whole day she feels restless pacing both physically and mentally agitated. [facility] Medical History (Updated 02/27/24 @ 14:36 by Norma Jacobsen MD) Akathisia Panic attacks Anxiety No known health problems Social History Household Members: Spouse Household Members Other:: Housing: House Do you presently have visiting nurse or other home services: No Alcohol intake: current Alcohol intake frequency: a few times a week Alcohol type: wine Patient Tobacco Use Status: Never used Tobacco Second Hand Smoke Exposure: No service: No Sexual orientation: Straight/Heterosexual Physical Exam Vital Signs: Last Vital Signs Pulse 117 H 02/26/24 09:34 Resp 16 02/26/24 09:34 BP 106/62 02/26/24 09:34 Pulse Ox 98 02/26/24 09:34 Oxygen Delivery Method Room Air 02/26/24 09:34 BMI result Body Mass Index 17.3 Const General: cooperative and anxious Nutritional Appearance: average body habitus Orientation/consciousness: patient oriented x3 Eyes Pupils: Equal, round and reactive pupils present Neuro Other: restless No tardive dyskinesia Akathesia General: patient oriented x3, gait normal, tone normal, moves all extremities and no focal motor deficits Cranial nerves: Yes Facial sensation intact/muscles of mastication intact, Yes Equal, round and reactive pupils present, Yes Bilaterally intact EOM present, Yes Nystagmus not present, Yes Normal facial strength present, Yes Midline tongue present and Yes Symmetric palate elevation present Cognition (Neuro): normal cognition Gait exam (Neuro): Normal gait present Motor exam (neuro): 5/5 motor strength present throughout and Normal motor muscle tone present throughout Deep tendon reflexes (DTR's): Right triceps reflex intensity grade: 2+, Left triceps reflex intensity grade: 2+, Rt Biceps (C5, C6): 2+, Left biceps reflex intensity grade: 2+, Right brachioradialis reflex intensity grade: 2+, Left brachioradialis reflex intensity grade: 2+, Right patellar reflex intensity grade: 2+ and Left patellar reflex intensity grade: 2+ Coordination: [id number] test normal Orientation What is the (year) (season) (date) (day) (month)?: year, season, date, day and month Where are we (state) (county) (town or city) (hospital) (floor)?: state, county, town or city, hospital/clinic and floor Registration Name of 3 unrelated objects clearly and slowly, then ask patient to repeat all 3 of them. (1st repeat determines score. Make sure they can repeat all three): object 1, object 2 and object 3 Attention & Calculation (CHOOSE ONE) Spell WORLD backwards (DLROW): 5 letters Recall Ask patient to repeat the 3 items from question #3.: object 1 and object 3 Language Show patient a wristwatch & ask what it is. Repeat for pencil.: watch and pencil Ask the patient to repeat the phrase 'No ifs, ands, or buts' after you.: correct Ask the patient to 'take a piece of paper with their right hand' 'fold paper in half' 'place paper on floor': take paper in right hand, fold paper in half and place paper on floor Print the sentence 'CLOSE YOUR EYES' on a piece. If patient actually closes eyes then score.: followed written direction Give patient a blank piece of paper & ask to write a sentence. Score if it contains a noun & verb.: sentence contains subject and verb Ask patient to copy figure of intersecting pentagons exactly. Score if all 10 angles & 2 intersects are included.: all 10 angles present & 2 are intersected Score Score: 29 Assessment & Plan Assessment & Plan (1) Akathisia: Comment: related to exposure to antipsychotics Code(s): G25.71 - Drug induced akathisia Category: Medical (2) Cognitive and behavioral changes: Comment: poorly controlled mood Code(s): R41.89 - Other symptoms and signs involving cognitive functions and awareness; R46.89 - Other symptoms and signs involving appearance and behavior Category: Medical Plan I suggested propranolol but patient declined due to hypotension refer to Dr. Goldman for stabilization of mood and will reevaluate if needed she did well on cognitive testing Medications: Changed From divalproex 750 mg (3 x 250 mg) PO BEDTIME 90 tabs 0RF To divalproex 250 mg PO BEDTIME 90 tabs 0RF Discontinued clonazepam Discontinued Reason: Patient no longer taking 0.5 mg PO DAILY 30 tabs 0RF risperidone Discontinued Reason: Patient no longer taking 1 mg PO BID 60 tabs 0RF clonazepam Discontinued Reason: Patient no longer taking 1 mg PO BEDTIME 30 tabs 0RF Coding Level of Care Code New Pt Level 4 (80530) Diagnoses Akathisia G2. Cognitive and behavioral changes R41.89; R46.89
[2024-02-26 09:34] VITALS: BP 106/62; PULSE 117; RESP 16; O2SAT 98; BMI 17.3
== END 2024-02-26 10:24 | disposition home or self-care (01) ==
PROVIDERS: PCP Internal Medicine; Visit Provider Psychiatry & Neurology Neurology
DX: G25.71 Drug induced akathisia (principal); R41.89 Other symptoms and signs involving cognitive functions and awareness; R46.89 Other symptoms and signs involving appearance and behavior
CPT/HCPCS: 99204

== ENCOUNTER → 2024-02-26 09:17 | Outpatient (BNVA) | payer BC, SELFPAY | PROVIDERS: PCP Internal Medicine; Visit Provider Psychiatry & Neurology Neurology ==

== ENCOUNTER 2024-03-11 13:59 | Inpatient (IN) | payer BC, SELFPAY ==
--- NOTE | 2024-03-11 | ECG_ITS ---
Test Reason : PROLONG QT Blood Pressure : / mmHG Vent. Rate : 070 BPM Atrial Rate : 070 BPM P-R Int : 136 ms QRS Dur : 088 ms QT Int : 380 ms P-R-T Axes : 076 081 060 degrees QTc Int : 410 ms Normal sinus rhythm Normal ECG When compared with ECG of 25-DEC-2023 11:21, No significant change was found Referred By: Generic ED Physician Electronically Signed By:Stalin Hreman
--- NOTE | ~2024-03-11 | CT_ITS ---
EXAMINATION: CT HEAD WITHOUT CONTRAST CLINICAL INFORMATION: AMS/behavioral changes. COMPARISON: None available. TECHNIQUE: Contiguous axial imaging was performed from the skull base to vertex without intravenous administration of contrast. This CT examination was performed using dose optimization techniques as appropriate, variously including the following: *Automated exposure control *Adjustment of mA and/or kV according to patient size (this includes techniques or standardized protocols for targeted exams where dose is matched to indication/reason for exam; i.e. extremities or head) *Use of iterative reconstruction technique DLP: 594 mGy-cm FINDINGS: There is no acute intra-axial, extra-axial bleed, masses or midline shift. There is no acute infarction in evolution. There is no edema or mass effect. The lateral ventricles are symmetrical in size and configuration without enlargement. No abnormality seen the posterior fossa. Bone windows reveal no calvarial abnormality. There is no scalp soft tissue abnormality. Bilateral paranasal sinuses and mastoid air cells are well-aerated. Bilateral optic globe, optic nerve and periorbital soft tissues are normal. CT/CT head/brain wo IV con IMPRESSION: No acute intracranial process seen
[2024-03-11 14:45] VITALS: BP 116/81; PULSE 99; RESP 18; TEMP 36.7; O2SAT 100; BMI 18.4
[2024-03-11 14:48] LABS: MANUAL DIFF FLAG NO
[2024-03-11 14:50] VITALS: BP 116/81; PULSE 99; RESP 18; TEMP 36.7; O2SAT 100
[2024-03-11 14:51] LABS: Basophils Absolute Auto 0.1 X10*3/uL (0.0-0.2); Basophils Percent Auto 0.8 % (0-2); Eosinophils Percent Auto 0.3 % (0-4); Hematocrit 39.4 % (37.0-47.0); Hemoglobin 13.9 g/dl (12.0-16.0); Imm Gran Abs Auto 0.01 X10*3/uL (0.00-0.03); Imm Gran Pct Auto 0.2 % (0.0-0.4); Lymphocytes Absolute Auto 1.3 X10*3/uL (1.2-4.9); Lymphocytes Percent Auto 21.5 % (20-40); Mean Corpuscular HGB Conc 35.3 g/dl (31.0-35.0); Mean Corpuscular Hemoglobin 33.3 pg (27.0-33.0); Mean Corpuscular Volume 94.5 fL (80.0-98.0); Mean Platelet Volume 8.6 fL (9.4-12.3); Monocytes Absolute Auto 0.7 X10*3/uL (0.1-1.2); Monocytes Percent Auto 11.1 % (2-11); Neutrophils Absolute Auto 4.1 x10*3/uL (2.0-8.3); Neutrophils Percent Auto 66.1 % (45-73); Platelet Count 311 X10*3/uL (160-400); Red Blood Count 4.17 X10*6/uL (4.20-5.50); Red Cell Distribution Width 12.2 % (11.0-16.0); White Blood Count 6.2 X10*3/uL (4.8-10.8)
[2024-03-11 15:05] LABS: Alanine Aminotransferase 18 U/L (0-31); Albumin Level 4.8 g/dL (3.5-5.0); Alkaline Phosphatase 59 U/L (39-117); Anion Gap 14 (12-20); Aspartate Amino Transferase 20 U/L (5-31); Bilirubin Total 0.4 mg/dL (0.0-1.0); Blood Urea Nitrogen 13 mg/dL (9-16); Carbon Dioxide 25 mmol/L (22-29); Chloride 102 mmol/L (96-108); Creatinine Clr Calc Pharmacy 63.8; Estimated Glomerular Filt Rate > 60; Ethanol < 10 mg/dL; Glucose Random 110 mg/dL (60-115); Potassium 4.1 mmol/L (3.3-5.1); Sodium 137 mmol/L (135-145); Total Protein 7.1 g/dL (6.5-8.0)
--- NOTE | 2024-03-11 15:27 | ED_ITS ---
HPI - Psych General Chief Complaint: Psychiatric Symptoms Stated Complaint: Crisis Time Seen by Provider: 03/11/24 15:02 Source: patient Limitations: no limitations History of Present Illness ED Provider: Estela Calhoun PA-C HPI Narrative: 53-year-old female with history of anxiety and depression, presents given need for crisis evaluation. Patient states 8 months ago she developed worsening anxiety and depression with panic episodes. Patient had been by a psychiatric provider, was never formally diagnosed with additional psychiatric illnesses. Recently, patient and her family obtained a 2nd opinion, they are seeing a psychiatrist, who feels her presentation is consistent with aggravated depression. Patient is also having aggravated catatonia. Her new psychiatrist sent here for further assessment, in particular inpatient psychiatric admission. Patient denies use of alcohol or illicit substances. Denies SI or HI. Related Data Home Medications ?Medication ?Instructions ?Recorded ?Confirmed benztropine 0.5 mg tablet 0.5 mg PO BEDTIME 03/11/24 03/11/24 divalproex 250 mg tablet,delayed 250 mg PO BEDTIME 03/11/24 03/11/24 release escitalopram oxalate 5 mg tablet 5 mg PO DAILY 03/11/24 03/11/24 estradiol 0.0375 mg/24 hr 1 patch topical 2XW 03/11/24 03/11/24 semiweekly transdermal patch lorazepam 0.5 mg tablet 0.5 mg PO BID 03/11/24 03/11/24 olanzapine 10 mg tablet 10 mg PO BEDTIME 03/11/24 03/11/24 progesterone micronized 100 mg 100 mg PO DAILY 03/11/24 03/11/24 capsule propranolol 10 mg tablet 10 - 20 mg PO TID PRN anxiety 03/11/24 03/11/24 Allergies Allergy/AdvReac Type Severity Reaction Status Date / Time No Known Allergies Allergy Verified 03/11/24 14:49 Review of Systems 2 Review of Systems: Yes all other systems are reviewed and are negative Constitutional: Constitutional: Denies fatigue and Denies fever(s) Cardiovascular: Cardiovascular: Denies chest pain at rest and Denies dyspnea Respiratory: Respiratory: Denies dyspnea Neurologic: Reports behavioral changes Psychiatric: Psychiatric: Reports anxiety, Reports behavioral changes and Reports depression Endocrine: Endocrine: Denies fatigue PMFSH Past Medical History Attestation statement: The following information was validated with the patient. Medical History (Updated 03/11/24 @ 17:09 by MARQUIS Rodriguez) Akathisia Panic attacks Anxiety No known health problems Social History Social History Household Members: Spouse Household Members Other:: Housing: House Do you presently have visiting nurse or other home services: No Alcohol intake: current Alcohol intake frequency: a few times a week Alcohol type: wine Patient Tobacco Use Status: Never used Tobacco Smoked in Last 30 Days: No Second Hand Smoke Exposure: No Use of substances other than those prescribed or required for medical reasons: No Advance Directives: No Do you have a plan to hurt others: No Plan service: No Sexual orientation: Straight/Heterosexual Physical Exam 2 Vital Signs: Vital Signs: Last Vital Signs Temp 98.1 F 03/11/24 17:29 Pulse 75 03/11/24 17:29 Resp 18 03/11/24 17:29 BP 121/79 03/11/24 17:29 Pulse Ox 98 03/11/24 17:29 O2 Del Method Room Air 03/11/24 17:29 BMI result Body Mass Index 18.4 Course Course Course Narrative: 53-year-old female with history of anxiety and depression, presents given need for crisis evaluation. Patient states 8 months ago she developed worsening anxiety and depression with panic episodes. Patient had been by a psychiatric provider, was never formally diagnosed with additional psychiatric illnesses. Recently, patient and her family obtained a 2nd opinion, they are seeing a psychiatrist, who feels her presentation is consistent with aggravated depression. Patient is also having aggravated catatonia. Her new psychiatrist sent here for further assessment, in particular inpatient psychiatric admission. Patient denies use of alcohol or illicit substances. Denies SI or HI. Problem: Psychiatric illness History: Per patient and her family I have considered the following differential diagnoses: SI, HI, drug/alcohol intoxication, decompensated psychiatric illness Plan: The patient will likely be a bed search, it appears that she is decompensated with her psychiatric illnesses. Screening labs including U tox and ethanol in process. Adding on a urinalysis and TSH, T4. Also adding a CT scan of the brain. From what the patient and her family have verbalized, the patient had normal behaviors, and was a functional adult, up until 8 months ago. I have independently reviewed the following tests: Labs: No leukocytosis, not anemic, no electrolyte abnormality, U tox negative and urinalysis urine not infected, some trace hematuria Patient will remain a physician labs as she is pending her behavioral health assessment and likely bed search given it appears she has decompensated Medical Decision Making Medical Decision Making MDM Narrative: At 19:35, the care team evaluated the patient, patient is on a Section 12, recommendations: Inpatient treatment, going up to the floor tonight Lab Data 03/11/24 14:44 03/11/24 14:44 Labs: Lab Results 03/11/24 03/11/24 03/11/24 Range/Units 14:44 17:25 17:49 WBC 6.2 (4.8-10.8) X10*3/uL RBC 4.17 L (4.20-5.50) X10*6/uL Hgb 13.9 (12.0-16.0) g/dl Hct 39.4 (37.0-47.0) % MCV 94.5 (80.0-98.0) fL MCH 33.3 H (27.0-33.0) pg MCHC 35.3 H (31.0-35.0) g/dl RDW 12.2 (11.0-16.0) % Plt Count 311 (160-400) X10*3/uL MPV 8.6 L (9.4-12.3) fL Immature Gran % (Auto) 0.2 (0.0-0.4) % Neut % (Auto) 66.1 (45-73) % Lymph % (Auto) 21.5 (20-40) % [place] % (Auto) 11.1 H (2-11) % Eos % (Auto) 0.3 (0-4) % Baso % (Auto) 0.8 (0-2) % Lymph # (Auto) 1.3 (1.2-4.9) X10*3/uL [place] # (Auto) 0.7 (0.1-1.2) X10*3/uL Eos # (Auto) 0.0 (0.0-0.4) X10*3/uL Baso # (Auto) 0.1 (0.0-0.2) X10*3/uL Abs Immat Gran (auto) 0.01 (0.00-0.03) X10*3/uL Absolute Neuts (auto) 4.1 (2.0-8.3) x10*3/uL Absolute Nucleated RBC 0.000 (0.0-0.012) X10*3/uL Nucleated RBC % (auto) 0.0 (0.0-0.2) /100WBC Sodium 137 (135-145) mmol/L Potassium 4.1 (3.3-5.1) mmol/L Chloride 102 (96-108) mmol/L Carbon Dioxide 25 (22-29) mmol/L Anion Gap 14 (12-20) BUN 13 (9-16) mg/dL Creatinine 0.78 (0.5-1.4) mg/dL Estim Creat Clear Calc 63.8 Estimated GFR > 60 Random Glucose 110 (60-115) mg/dL Calcium 10.0 (8.4-10.2) mg/dL Total Bilirubin 0.4 (0.0-1.0) mg/dL AST 20 (5-31) U/L ALT 18 (0-31) U/L Alkaline Phosphatase 59 (39-117) U/L Total Protein 7.1 (6.5-8.0) g/dL Albumin 4.8 (3.5-5.0) g/dL TSH 0.77 (0.32-4.0) uIU/mL Urine Color Yellow Urine Appearance Clear Urine pH 7.0 (5.0-9.0) Ur Specific [place] 1.015 (1.005-1.025) Urine Protein Negative (Neg-Trace) mg/dL Urine Glucose (UA) Negative (Negative) mg/dL Urine Ketones Negative (Negative) mg/dL Urine Blood Moderate (2+) H (Negative) Urine Nitrite Negative (Negative) Ur Leukocyte Esterase Negative (Negative) Urine RBC 11-20 H (0-2) /HPF Urine WBC 0-5 (0-5) /HPF Ur Squamous Epith Cells 6-10 (0-2) /HPF Urine Bacteria None Seen (None Seen) Hyaline Casts 0-2 (0-2) /LPF Urine Opiates Screen Not Detected (Not Detect) Ur Buprenorphine Scrn Not Detected (Not Detect) ng/mL Ur Oxycodone Screen Not Detected (Not Detect) ng/mL Urine Methadone Screen Not Detected (Not Detect) ng/mL Urine Fentanyl Screen Not Detected (Not Detect) Ur Barbiturates Screen Not Detected (Not Detect) Ur Phencyclidine Scrn Not Detected (Not Detect) Ur Amphetamines Screen Not Detected (Not Detect) U Benzodiazepines Scrn Not Detected (Not Detect) Urine Cocaine Screen Not Detected (Not Detect) U Marijuana (THC) Screen Not Detected (Not Detect) Ethyl Alcohol < 10 mg/dL Discharge Plan Discharge Clinical Impression: Anxiety Patient Disposition: Still a Patient Prescriptions: No Action benztropine 0.5 mg tablet 0.5 mg PO BEDTIME divalproex 250 mg tablet,delayed release (DR/EC) 250 mg PO BEDTIME olanzapine 10 mg tablet 10 mg PO BEDTIME propranolol 10 mg tablet 10 - 20 mg PO TID PRN (Reason: anxiety) lorazepam 0.5 mg tablet 0.5 mg PO BID estradiol 0.0375 mg/24 hr patch semiweekly 1 patch topical 2XW Rx Instructions: Sunday's and progesterone micronized 100 mg capsule 100 mg PO DAILY escitalopram oxalate 5 mg tablet 5 mg PO DAILY Interventions: [place]-Suicide Risk Severity Scale Last Done: 03/11/24 14:50 Print Language: Moldovan
[2024-03-11 17:29] VITALS: BP 121/79; PULSE 75; RESP 18; TEMP 36.7; O2SAT 98
[2024-03-11 17:59] LABS: Appearance Urine Clear; Color Urine Yellow; Glucose Urine UA Negative (Negative); Leukocyte Esterase Urine Negative (Negative); Nitrite Urine Negative (Negative); Specific Gravity - Urine 1.015 (1.005-1.025); UMIC TRIGGER UACC YES; Urine Blood Moderate (2+) (Negative); Urine Ketones Negative (Negative); Urine Protein Negative (Neg-Trace)
[2024-03-11 18:02] LABS: Bacteria Urine None Seen (None Seen); Hyaline Casts Urine 0-2 /LPF (0-2); WBC Urine 0-5 /HPF (0-5)
[2024-03-11 18:05] LABS: TSH reflex Free T4 0.77 uIU/mL (0.32-4.0)
[2024-03-11 18:10] LABS: Amphetamine Screen Urine Not Detected (Not Detect); Barbiturates, Urine Not Detected (Not Detect); Benzodiazepines Screen Urine Not Detected (Not Detect); Buprenorphine Scr Not Detected (Not Detect); Cannabinoid Screen Urine Not Detected (Not Detect); Cocaine Screen Urine Not Detected (Not Detect); Fentanyl, urine Not Detected (Not Detect); Methadone Screen, Urine Not Detected (Not Detect); Opiate Screen Urine Not Detected (Not Detect); Oxycodone Screen Urine Not Detected (Not Detect); Phencyclidine Screen Urine Not Detected (Not Detect)
--- NOTE | 2024-03-11 20:08 | PC.NURSE ---
patiwent ambulates indepemndently asking many questions about medications patient seems suspicious and untrusting regarding medications patient moderately apprehensive in appearance
--- NOTE | 2024-03-11 20:44 | PC.NURSE ---
t/w was notified by client upon presentation of meds that there was an error in depakote dosing, being that this client was suspicious and reluctant to take medicines in any case, t/w reviewed list and asked provider for increased dose. awaiting dose.
[2024-03-11 21:28] LABS: UPreg QC Valid YES; Urine Pregnancy NEGATIVE (NEGATIVE)
--- NOTE | 2024-03-11 21:28 | PC.NURSE ---
clarification, correct dose is 500mg at HS for depakote.
[2024-03-11] MEDS: OLANZapine 10 MG TABLET PO (22:13)
[2024-03-11] MEDS: Benztropine Mesylate 0.5 MG TABLET PO (22:14)
[2024-03-11] MEDS: LORazepam 0.5 MG TABLET PO (22:14)
[2024-03-11] MEDS: Divalproex Sodium 250 MG TABLET.DR PO (22:24)
[2024-03-11 22:32] VITALS: BP 126/91; PULSE 79; RESP 16; TEMP 36.6; O2SAT 98
[2024-03-11 23:15] VITALS: BP 126/83; PULSE 79; RESP 16; TEMP 36.9; O2SAT 99
[2024-03-12] MEDS: hydrOXYzine HCL 25 MG TABLET PO (00:12)
[2024-03-12] MEDS: traZODone HCL 50 MG TABLET PO (00:12)
[2024-03-12 01:16] VITALS: BMI 17.2
--- NOTE | 2024-03-12 02:04 | PC.ADMIT ---
Vicki is a 53 year old [place], born and classified as female who appears older than stated age. She was admitted on a CV from [facility] for safety, medication management and stabilization, diagnosis Depression and Anxiety Disorder. She self presented to the ER with C/O increased anxiety, depression and panic episodes. Vicki stated that her medications was being adjusted over the past 8 months resulting in exacerbation of symptoms (last admitted December 2023 to [facility]), she struggles with decision making, following directions, concentrating, racing thoughts, siting still, insomnia, fear, and weight loss of 20 pounds. Vicki arrived on the unit at 2310 via WC escorted by staff and security, gait steady, A/Ox3, VS WNL, skin / contraband assessment completed by female staff x 2, no issues noted, she appears thin, with forced eye contact, anxious mood, observed to be fidgety/unable to sit still during the admission process, she is hyper-focused on getting her meds corrected. 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 I don't know if I'll be able to go back to work when school starts. Vicki denies thoughts of self harm /AVH, I don't know what to do. What if I can't sleep. I've never taken these meds before. Do you think it will work? What if I can't sleep. I don't know what to do. expressed fear AEB shaking and strained look on her face when she was shown her room/bed, with much encouragement /support she accepted PRN Trazadone/Atarax and the anteroom for the night, placed on 5 min ULB, observed to appear asleep during rounds after 5. Discharge [facility], and return to functional baseline.
[2024-03-12 07:30] VITALS: BP 121/92; PULSE 93; RESP 18; TEMP 36.4; O2SAT 100
[2024-03-12 08:00] VITALS: BP 121/92; PULSE 93; RESP 18; TEMP 36.4; O2SAT 100
[2024-03-12] MEDS: LORazepam 0.5 MG TABLET PO ×2 (08:47→22:00)
[2024-03-12] MEDS: Escitalopram Oxalate 5 MG TABLET PO (08:47)
[2024-03-12] MEDS: proGESTerone, Micronized 100 MG CAPSULE PO (08:47)
--- NOTE | 2024-03-12 09:04 | P.HPPS_ITS ---
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 (on Paxil) Psych provider: Denise Williamson PNP PCP: Nitesh Rosenberg DO Previous trials: lamotrigine (as high as 75 mg/d since Aug, recently discontinued) CURRENT MEDICATIONS: Paxil 10 mg qhs (as high as 40 mg/d - >20 years) olanzapine 10 mg qhs Lorazepam 0.5 mg BID PRN [facility] Medical History (Updated 03/11/24 @ 17:09 by MARQUIS Rodriguez) Akathisia Panic attacks Anxiety No known health problems Family History: Per assessment, patient noted daughter with Bipolar dx Social History: LIves at home with Has 2 adult children ages 28 and 25 Works as a paraprofessional at an elementary school, currently on leave from work since 12/12 Trauma History: denies Diagnostics Vital Signs (24Hr): Vital Signs - 24 hr 03/11/24 14:45 03/11/24 14:50 03/11/24 17:29 Temperature 98.1 F 98.1 F 98.1 F Pulse Rate 99 99 75 Respiratory Rate 18 18 18 Blood Pressure 116/81 116/81 121/79 Pulse Oximetry 100 100 98 Oxygen Delivery Method Room Air Room Air Room Air 03/11/24 22:32 03/11/24 23:15 03/12/24 07:30 Temperature 97.8 F 98.5 F 97.5 F Pulse Rate 79 79 93 Respiratory Rate 16 16 18 Blood Pressure 126/91 H 126/83 121/92 H Pulse Oximetry 98 99 100 Oxygen Delivery Method Room Air Room Air Room Air 03/12/24 08:00 Temperature 97.5 F Pulse Rate 93 Respiratory Rate 18 Blood Pressure 121/92 H Pulse Oximetry 100 Oxygen Delivery Method Room Air BMI result Body Mass Index 17.2 Labs 03/11/24 14:44 03/11/24 14:44 Labs: Laboratory Results - last 48 hr 03/11/24 03/11/24 03/11/24 14:44 17:25 17:49 WBC 6.2 RBC 4.17 L Hgb 13.9 Hct 39.4 MCV 94.5 MCH 33.3 H MCHC 35.3 H RDW 12.2 Plt Count 311 MPV 8.6 L Immature Gran % (Auto) 0.2 Neut % (Auto) 66.1 Lymph % (Auto) 21.5 [place] % (Auto) 11.1 H Eos % (Auto) 0.3 Baso % (Auto) 0.8 Lymph # (Auto) 1.3 [place] # (Auto) 0.7 Eos # (Auto) 0.0 Baso # (Auto) 0.1 Abs Immat Gran (auto) 0.01 Absolute Neuts (auto) 4.1 Absolute Nucleated RBC 0.000 Nucleated RBC % (auto) 0.0 Sodium 137 Potassium 4.1 Chloride 102 Carbon Dioxide 25 Anion Gap 14 BUN 13 Creatinine 0.78 Estim Creat Clear Calc 63.8 Estimated GFR > 60 Random Glucose 110 Calcium 10.0 Total Bilirubin 0.4 AST 20 ALT 18 Alkaline Phosphatase 59 Total Protein 7.1 Albumin 4.8 TSH 0.77 Urine Color Yellow Urine Appearance Clear Urine pH 7.0 Ur Specific [place] 1.015 Urine Protein Negative Urine Glucose (UA) Negative Urine Ketones Negative Urine Blood Moderate (2+) H Urine Nitrite Negative Ur Leukocyte Esterase Negative Urine RBC 11-20 H Urine WBC 0-5 Ur Squamous Epith Cells 6-10 Urine Bacteria None Seen Hyaline Casts 0-2 Urine Test NEGATIVE Urine Opiates Screen Not Detected Ur Buprenorphine Scrn Not Detected Ur Oxycodone Screen Not Detected Urine Methadone Screen Not Detected Urine Fentanyl Screen Not Detected Ur Barbiturates Screen Not Detected Ur Phencyclidine Scrn Not Detected Ur Amphetamines Screen Not Detected U Benzodiazepines Scrn Not Detected Urine Cocaine Screen Not Detected U Marijuana (THC) Screen Not Detected Ethyl Alcohol < 10 Imaging Radiology Impressions: ITS Impressions Head CT 03/11/24 17:51 IMPRESSION: No acute intracranial process seen Meds/Allergies Meds Home Medications ?Medication ?Instructions ?Recorded ?Confirmed ?Type benztropine 0.5 mg tablet 0.5 mg PO BEDTIME 03/11/24 03/11/24 History divalproex 250 mg tablet,delayed 500 mg PO BEDTIME 03/11/24 03/11/24 History release escitalopram oxalate 5 mg tablet 5 mg PO DAILY 03/11/24 03/11/24 History estradiol 0.0375 mg/24 hr 1 patch topical 2XW 03/11/24 03/11/24 History semiweekly transdermal patch lorazepam 0.5 mg tablet 0.5 mg PO BID 03/11/24 03/11/24 History olanzapine 10 mg tablet 10 mg PO BEDTIME 03/11/24 03/11/24 History progesterone micronized 100 mg 100 mg PO DAILY 03/11/24 03/11/24 History capsule propranolol 10 mg tablet 10 - 20 mg PO TID PRN anxiety 03/11/24 03/11/24 History Allergies Allergies Allergy/AdvReac Type Severity Reaction Status Date / Time No Known Allergies Allergy Verified 03/11/24 14:49 Assessment & Plan Statement Statement: I have reviewed the history and physical and performed a pertinent examination on my patient. No changes have occurred unless specified. If the History and Physical was not performed prior to admission, the Hospitalist's service will be consulted for completing the admission physical. Time Spent With Patient Time: Total time managing care of this patient today ____ minutes.
[2024-03-12 09:06] LABS: Valproate 57.9 mcg/mL (50.0-100.0)
--- NOTE | 2024-03-12 09:43 | P.HPPS_ITS ---
[facility] Date of Service: 03/12/24 Chief Complaint: bipolar mixed state akathesia not responding to tx Sources of Information: patient interviewed and chart reviewed Additional Sources of Information: spoke with dr goldman pts and dr goldman HPI Subjective Notes: Wallace Warning and Conditional Voluntary Healthcare Proxy: No Guardianship: No Narrative: The patient is a 53-year-old female who has become increasingly anxious despondent hopeless with marked poor concentration restlessness in the context of and increasingly treatment resistant mood disorder. She has been seeing a nurse practitioner in [facility] her primary care provider is Dr. Rosenberg The patient was recently discharged from [facility] and she had a 2nd opinion couple of days ago with Dr. Goldman who felt that the patient most likely required ECT and should be hospitalized. The patient was thought to be in a mixed manic agitated state by Dr. Streeter May since then she has been on multiple different medication trials but has been unable to stabilize with constant restlessness/akathisia racing thoughts marked anxiety difficulty concentration and worsening basic functioning. 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 The patient had been stable on Paxil for over 20 years until proximally [place] of 2022. There is a history of depression. Currently the patient has been on benztropine 0.5 mg daily escitalopram was recently started 5 mg daily olanzapine 5-10 mg at bedtime lorazepam 0.5-1 mg up to 3 times a day as needed and Depakote was recently at 500 mg at bedtime. Propranolol 5-10 mg 3 times a day as needed for restlessness she did recently see Dr. Collin Pavon in a Neurology consult who felt there was restlessness. Of note her daughter has been manage diagnosed with bipolar disorder Medication trials The patient in August had trials of Paxil to 40 mg a day Seroquel up to 25 mg at bedtime lorazepam 1 mg at bedtime she was thought to be hypomanic she was started on olanzapine and Lamictal Paxil was lowered continued as manic with hyperactivity anxiety pressured speech Highest dose of Lamictal it appears to be about 100 mg felt numb this was lowered Paxil was tapered down olanzapine 10 mg at bedtime continued with severe anxiety hypomania . The patient was admitted to am 3 psychiatric in [facility] in December she was discharged on clonazepam Depakote 750 mg Paxil 10 mg Risperdal 1 mg b.i.d. she felt quite sedated Depakote was decreased Paxil eventually discontinued Risperdal lowered. In January she was started on Abilify was on Depakote clonazepam 0.5 b.i.d. Abilify 5 mg was restarted on hormone replacement therapy at that time. Sertraline was continued at 25 mg daily Depakote was being tapered and nearly February BuSpar Abilify Risperdal were discontinued Seroquel 100 mg at bedtime continues to have poor sleep pacing restlessness severe anxiety tremulousness question akathisia symptoms. Seven hundred seventeen Seroquel was discontinued continue on lorazepam benztropine low-dose Depakote 250 mg patient then had a consultation with Dr. Goldman. Past Psychiatric History: Partial hospital admission in December [facility] admission in December on 3 No substance abuse treatment hx Denies hx of suicide attempts or SIBs Denies hx of aggression Reports history of PPD/ depression after both pregnancies (on Paxil) Psych provider: Denise Williamson PNP PCP: Nitesh Rosenberg DO Previous trials: lamotrigine (as high as 75 mg/d since Aug, recently discontinued) See above Medical Evaluation Reviewed: Yes [facility] Medical History (Updated 03/12/24 @ 17:16 by Prasanna Cancino MD) Akathisia Panic attacks Anxiety No known health problems Family History: Per assessment, patient noted daughter with Bipolar dx Social History: LIves at home with Has 2 adult children ages 28 and 25 Works as a paraprofessional at an elementary school, currently on leave from work since 12/12 Tried to return to work unable to function Substance History: na Trauma History: denies Diagnostics Vital Signs (24Hr): Vital Signs - 24 hr 03/11/24 14:45 03/11/24 14:50 03/11/24 17:29 Temperature 98.1 F 98.1 F 98.1 F Pulse Rate 99 99 75 Respiratory Rate 18 18 18 Blood Pressure 116/81 116/81 121/79 Pulse Oximetry 100 100 98 Oxygen Delivery Method Room Air Room Air Room Air 03/11/24 22:32 03/11/24 23:15 03/12/24 07:30 Temperature 97.8 F 98.5 F 97.5 F Pulse Rate 79 79 93 Respiratory Rate 16 16 18 Blood Pressure 126/91 H 126/83 121/92 H Pulse Oximetry 98 99 100 Oxygen Delivery Method Room Air Room Air Room Air 03/12/24 08:00 Temperature 97.5 F Pulse Rate 93 Respiratory Rate 18 Blood Pressure 121/92 H Pulse Oximetry 100 Oxygen Delivery Method Room Air BMI result Body Mass Index 17.2 Labs 03/11/24 14:44 03/11/24 14:44 Labs: Laboratory Results - last 48 hr 03/11/24 03/11/24 03/11/24 14:44 17:25 17:49 WBC 6.2 RBC 4.17 L Hgb 13.9 Hct 39.4 MCV 94.5 MCH 33.3 H MCHC 35.3 H RDW 12.2 Plt Count 311 MPV 8.6 L Immature Gran % (Auto) 0.2 Neut % (Auto) 66.1 Lymph % (Auto) 21.5 [place] % (Auto) 11.1 H Eos % (Auto) 0.3 Baso % (Auto) 0.8 Lymph # (Auto) 1.3 [place] # (Auto) 0.7 Eos # (Auto) 0.0 Baso # (Auto) 0.1 Abs Immat Gran (auto) 0.01 Absolute Neuts (auto) 4.1 Absolute Nucleated RBC 0.000 Nucleated RBC % (auto) 0.0 Sodium 137 Potassium 4.1 Chloride 102 Carbon Dioxide 25 Anion Gap 14 BUN 13 Creatinine 0.78 Estim Creat Clear Calc 63.8 Estimated GFR > 60 Random Glucose 110 Calcium 10.0 Total Bilirubin 0.4 AST 20 ALT 18 Alkaline Phosphatase 59 Total Protein 7.1 Albumin 4.8 TSH 0.77 Urine Color Yellow Urine Appearance Clear Urine pH 7.0 Ur Specific [place] 1.015 Urine Protein Negative Urine Glucose (UA) Negative Urine Ketones Negative Urine Blood Moderate (2+) H Urine Nitrite Negative Ur Leukocyte Esterase Negative Urine RBC 11-20 H Urine WBC 0-5 Ur Squamous Epith Cells 6-10 Urine Bacteria None Seen Hyaline Casts 0-2 Urine Test NEGATIVE Urine Opiates Screen Not Detected Ur Buprenorphine Scrn Not Detected Ur Oxycodone Screen Not Detected Urine Methadone Screen Not Detected Urine Fentanyl Screen Not Detected Ur Barbiturates Screen Not Detected Valproic Acid Ur Phencyclidine Scrn Not Detected Ur Amphetamines Screen Not Detected U Benzodiazepines Scrn Not Detected Urine Cocaine Screen Not Detected U Marijuana (THC) Screen Not Detected Ethyl Alcohol < 10 03/12/24 08:22 WBC RBC Hgb Hct MCV MCH MCHC RDW Plt Count MPV Immature Gran % (Auto) Neut % (Auto) Lymph % (Auto) [place] % (Auto) Eos % (Auto) Baso % (Auto) Lymph # (Auto) [place] # (Auto) Eos # (Auto) Baso # (Auto) Abs Immat Gran (auto) Absolute Neuts (auto) Absolute Nucleated RBC Nucleated RBC % (auto) Sodium Potassium Chloride Carbon Dioxide Anion Gap BUN Creatinine Estim Creat Clear Calc Estimated GFR Random Glucose Calcium Total Bilirubin AST ALT Alkaline Phosphatase Total Protein Albumin TSH Urine Color Urine Appearance Urine pH Ur Specific [place] Urine Protein Urine Glucose (UA) Urine Ketones Urine Blood Urine Nitrite Ur Leukocyte Esterase Urine RBC Urine WBC Ur Squamous Epith Cells Urine Bacteria Hyaline Casts Urine Test Urine Opiates Screen Ur Buprenorphine Scrn Ur Oxycodone Screen Urine Methadone Screen Urine Fentanyl Screen Ur Barbiturates Screen Valproic Acid 57.9 Ur Phencyclidine Scrn Ur Amphetamines Screen U Benzodiazepines Scrn Urine Cocaine Screen U Marijuana (THC) Screen Ethyl Alcohol Imaging Radiology Impressions: ITS Impressions Head CT 03/11/24 17:51 IMPRESSION: No acute intracranial process seen Meds/Allergies Meds Home Medications ?Medication ?Instructions ?Recorded ?Confirmed ?Type benztropine 0.5 mg tablet 0.5 mg PO BEDTIME 03/11/24 03/11/24 History divalproex 250 mg tablet,delayed 500 mg PO BEDTIME 03/11/24 03/11/24 History release escitalopram oxalate 5 mg tablet 5 mg PO DAILY 03/11/24 03/11/24 History estradiol 0.0375 mg/24 hr 1 patch topical 2XW 03/11/24 03/11/24 History semiweekly transdermal patch lorazepam 0.5 mg tablet 0.5 mg PO BID 03/11/24 03/11/24 History olanzapine 10 mg tablet 10 mg PO BEDTIME 03/11/24 03/11/24 History progesterone micronized 100 mg 100 mg PO DAILY 03/11/24 03/11/24 History capsule propranolol 10 mg tablet 10 - 20 mg PO TID PRN anxiety 03/11/24 03/11/24 History Allergies Allergies Allergy/AdvReac Type Severity Reaction Status Date / Time No Known Allergies Allergy Verified 03/11/24 14:49 Mental Status Exam Mental Status Exam Patient Appearance: Unkempt Patient Orientation: Person, Place and Situation Level of Consciousness: Awake, Restless and Alert Patient Behavior: Restless, Anxious and Distractible Mood Description: Fearful, Anxious, Flat and Nervous Affect Description: Depressed, Anxious, Labile and Apprehensive Patient Cognition Impaired: Yes Ability to Follow Directions: Fair Speech Pattern: Perseverating, Difficulty Finding Words, Rambling and Long Pauses Memory Description: Immediate Impaired and Working Impaired Hallucinations: None Delusions: Not Present Perceptual Disturbances: Depersonalization Thought Process: Rumination and Confusion Thought Content: positive for Racing, positive for Perseveration and positive for Disorganized Depressive Symptoms: Increased Anxiety, Insomnia, Diff. Making Decisions, Muscle Tension, Difficulty Sleeping, Loss of Int. in Activity, Hopelessness and Difficulty Concentrating Abnormal Motor Activity Signs and Symptoms: Agitation and Restlessness Judgement: Fair Judgement and Insight: limited patient having difficult time waiting information giving clear history she is alert and oriented severe anxiety difficulty with concentration racing thoughts mood depressed no euphoria Assessment & Plan Assessment & Plan (1) Bipolar affective, mixed, severe: Status: Acute Code(s): F31.63 - Bipolar disorder, current episode mixed, severe, without psychotic features (2) Akathisia: Status: Acute Code(s): G25.71 - Drug induced akathisia (3) Panic attacks: Status: Acute Code(s): F41.0 - Panic disorder [episodic paroxysmal anxiety] (4) Cognitive and behavioral changes: Status: Acute Code(s): R41.89 - Other symptoms and signs involving cognitive functions and awareness; R46.89 - Other symptoms and signs involving appearance and behavior Plan Patient appears to be in a mixed state and has been for an extended period of time affecting her cognitively and possibly secondary akathisia from a combination of an SSRI with hyperactivity and question antipsychotic induced akathisia Propranolol Cogentin may be helpful for akathisia Cogentin might worsen confusion given patient's lack response to treatment ECT would most likely be the most efficacious treatment and rapidly responding unclear if the patient has tardive akathisia no myoclonus suggestive serotonin syndrome Had head ct 03/11 unremarkable no metabolic abnormalities will avoid antipsychotics antidepressants preop for ECT Patient markedly depressed anxious with marked difficulty in functioning question medication induced cycling akathisia agree with recommendation of washout as much as possible and recommend ECT patient severely anxious needs lot of reassurance Spoke with patient's meeting set up for tomorrow Patient educated on: diagnosis, medication risk/benefits and ECT Informed Consent: further education needed Reason for continued inpatient stay Substantial Risk for: inability to function, rapid decompensation and med/psych decompensation Statement Statement: I have reviewed the history and physical and performed a pertinent examination on my patient. No changes have occurred unless specified. If the History and Physical was not performed prior to admission, the Hospitalist's service will be consulted for completing the admission physical. Time Spent With Patient Time: Total time managing care of this patient today ____ minutes.
--- NOTE | 2024-03-12 15:36 | HO.ECTCONS_ITS ---
History of Present Illness Data of Consult Service Date: 03/12/24 Requesting physician: Prasanna Cancino Primary Care Provider: Nitesh Rosenberg MD [facility] Reason for consult: ect risk stratification 53-year-old female with history of bipolar disorder, panic attacks/anxiety, akathisia admitted to adult Psychiatry with consult placed hospitalist service for ECT risk stratification. The patient is unsure if she wants to undergo ECT but is open to further conversation. She has never undergone any ECT. Denies any history of seizure disorder. No history of chronic lung disease. No history of cardiovascular disease or congestive heart failure. She believes her great grandfather may have had a heart attack but is unsure. No other known family history. She is able to ambulate distances including going up stairs without developing any dyspnea, lightheadedness, chest pain. She currently denies any dyspnea, lightheadedness, palpitations, chest pain. EKG yesterday showed NSR with rate 70, no acute ST/T-wave abnormality. QTC 410. Review of Systems 2 Review of Systems: General: No fevers, malaise, unintentional weight loss HEENT: No blurred vision, diplopia. No sore throat, nasal congestion, rhinorrhea, sinus pain, ear pain Cardiovascular: No chest pain, palpitations, or leg edema Respiratory: No shortness of breath, wheezing, cough GI: No abdominal pain, nausea, vomiting, diarrhea, constipation, melena, hematochezia : No dysuria, hematuria, increased urinary frequency, decreased urinary output MSK: No myalgia, back pain Neuro: No headaches, weakness, paresthesias Skin: No rashes or lesions [facility] Medical History (Updated 03/12/24 @ 19:43 by MARQUIS [facility]) Bipolar affective, mixed, severe Akathisia Panic attacks Anxiety No known health problems Social History Household Members: Spouse Household Members Other:: Housing: House Do you presently have visiting nurse or other home services: No Alcohol intake: current Alcohol intake frequency: a few times a week Alcohol type: wine Patient Tobacco Use Status: Never used Tobacco Smoked in Last 30 Days: No e-Cigarette/Vaping Use: Never Used Patient Interested in Nicotine Replacement: No Patient Given Instructions on How to Stop Smoking: No (non smoker) Second Hand Smoke Exposure: No Use of substances other than those prescribed or required for medical reasons: No Currently Displaying Signs/Symptoms of Drug Intoxication Withdrawal: No Any prior treatment program specific to substance use: No Have you been hit, kicked, punched, or otherwise hurt by someone within the past year? If so, by whom?: No Do you feel safe in your current relationship?: Yes Is there a partner from a previous relationship who is making you feel unsafe now?: No Are you made to feel afraid or neglected: No Advance Directives: No Do you have thoughts of harming others: None Do you have a plan to hurt others: No Plan Recently lost weight without trying: Yes How much weight loss: 14-23 pounds Eating poorly because of decreased appetite: No Nutrition screen score: 4 Nutrition Risks: Emaciation/Cachexia and Poor intake 0-25% >4 days Patient : No : No Poor oral hygiene: No service: No Sexual orientation: Straight/Heterosexual Meds Allergies Allergy/AdvReac Type Severity Reaction Status Date / Time No Known Allergies Allergy Verified 03/11/24 14:49 Active Medications: Current Medications Acetaminophen (Acetaminophen 325 Mg Tablet) 650 mg PO Q6H PRN PRN Reason: Headache/Pain Mild Scale (1-3) Al Hydroxide/Mg Hydroxide (Magnesium Hydrox/Alum Hydrox 30 Ml Oral.Susp) 30 ml PO Q6H PRN PRN Reason: Heartburn/Nausea Divalproex Sodium (Divalproex Sodium 250 Mg Tablet.Dr) 250 mg PO BEDTIME [facility] Last Admin: 03/11/24 22:24 Dose: 250 mg Hydroxyzine HCl (Hydroxyzine Hcl 25 Mg Tablet) 25 mg PO Q6H PRN PRN Reason: Anxiety Last Admin: 03/12/24 00:12 Dose: 25 mg Lorazepam (Lorazepam 0.5 Mg Tablet) 0.5 mg PO BID [facility] Last Admin: 03/12/24 08:47 Dose: 0.5 mg Magnesium Hydroxide (Milk Of Magnesia 30 Ml Oral.Susp) 30 ml PO DAILY PRN PRN Reason: Constipation Nicotine (Nicotine 21 Mg Patch.Td24) 21 mg TRANSDERMA DAILY PRN PRN Reason: smoking cessation Nicotine Polacrilex (Nicotine Polacrilex 2 Mg Gum) 4 mg BUCCAL Q2H PRN PRN Reason: Nicotine Cravings Pt Own (Estradiol 0. 0375 Mg/24 Hr Patch Semiweekly) 1 patch TOPICAL TuSa [facility] Last Admin: 03/11/24 20:04 Dose: 1 patch Olanzapine (Olanzapine 10 Mg Tablet) 10 mg PO BEDTIME [facility] Last Admin: 03/11/24 22:13 Dose: 5 mg Olanzapine (Olanzapine 2.5 Mg Tablet) 2.5 mg PO TID PRN PRN Reason: agitation Progesterone (Progesterone, Micronized 100 Mg Capsule) 100 mg PO DAILY [facility] Last Admin: 03/12/24 08:47 Dose: 100 mg Propranolol HCl (Propranolol Hcl 10 Mg Tablet) 10 mg PO TID PRN; Protocol PRN Reason: anxiety Home Medications ?Medication ?Instructions ?Recorded ?Confirmed ?Last Taken ?Type benztropine 0.5 mg tablet 0.5 mg PO BEDTIME 03/11/24 03/11/24 03/10/24 History divalproex 250 mg tablet,delayed 500 mg PO BEDTIME 03/11/24 03/11/24 03/10/24 History release escitalopram oxalate 5 mg tablet 5 mg PO DAILY 03/11/24 03/11/24 03/11/24 History estradiol 0.0375 mg/24 hr 1 patch topical 2XW 03/11/24 03/11/24 03/11/24 History semiweekly transdermal patch lorazepam 0.5 mg tablet 0.5 mg PO BID 03/11/24 03/11/24 03/11/24 History olanzapine 10 mg tablet 10 mg PO BEDTIME 03/11/24 03/11/24 03/10/24 History progesterone micronized 100 mg 100 mg PO DAILY 03/11/24 03/11/24 03/11/24 History capsule propranolol 10 mg tablet 10 - 20 mg PO TID PRN anxiety 03/11/24 03/11/24 Unknown History Physical Exam 2 Vital Signs and Narrative: Vital Signs: Last Vital Signs Temp 97.5 F 03/12/24 08:00 Pulse 93 03/12/24 08:00 Resp 18 03/12/24 08:00 BP 121/92 H 03/12/24 08:00 Pulse Ox 100 03/12/24 08:00 O2 Del Method Room Air 03/12/24 08:00 BMI result Body Mass Index 17.2 Constitutional - Awake and Alert, No apparent distress Eyes - PERRLA, EOMI Cardiovascular - S1S2, RRR, No edema Respiratory - Normal lung expansion, Normal respiratory effort, No respiratory distress, CTA bilaterally Gastrointestinal - NT / ND; +BS; No rebound or guarding Extremities - no calf tenderness bilaterally, no swelling Skin - Warm/Dry Neurological - Alert & oriented x3, CN II-XII in tact, 5/5 strength BUE and BLE Psychological - very anxious Results Labs 03/11/24 14:44 03/11/24 14:44 Labs: Laboratory Results - last 24 hr 03/11/24 03/11/24 03/12/24 17:25 17:49 08:22 TSH 0.77 Urine Color Yellow Urine Appearance Clear Urine pH 7.0 Ur Specific [place] 1.015 Urine Protein Negative Urine Glucose (UA) Negative Urine Ketones Negative Urine Blood Moderate (2+) H Urine Nitrite Negative Ur Leukocyte Esterase Negative Urine RBC 11-20 H Urine WBC 0-5 Ur Squamous Epith Cells 6-10 Urine Bacteria None Seen Hyaline Casts 0-2 Urine Test NEGATIVE Urine Opiates Screen Not Detected Ur Buprenorphine Scrn Not Detected Ur Oxycodone Screen Not Detected Urine Methadone Screen Not Detected Urine Fentanyl Screen Not Detected Ur Barbiturates Screen Not Detected Valproic Acid 57.9 Ur Phencyclidine Scrn Not Detected Ur Amphetamines Screen Not Detected U Benzodiazepines Scrn Not Detected Urine Cocaine Screen Not Detected U Marijuana (THC) Screen Not Detected Imaging Radiologist's Impressions: Impressions Head CT 03/11/24 17:51 IMPRESSION: No acute intracranial process seen Assessment and Plan (1) Routine medical exam: Status: Acute Plan 53-year-old female with history of bipolar disorder, panic attacks/anxiety, akathisia admitted to adult Psychiatry with consult placed hospitalist service for ECT risk stratification. #Bipolar disorder/anxiety -plan per psychiatry -pt scores 0 points, Class I, on revised cardiac risk index. has no known cardiovascular risk factors. At this time no contraindication exists that should preclude patient from undergoing ect Thank you for allowing me to participate in this consult. Signing off at this time. Please do not hesitate to call for further questions or for any acute medical issues
[2024-03-12 20:00] VITALS: BP 125/78; PULSE 94; RESP 16; TEMP 36.8; O2SAT 100
[2024-03-12 22:01] VITALS: BP 132/97; PULSE 104
[2024-03-12] MEDS: Propranolol HCL 10 MG TABLET PO (22:01)
[2024-03-12] MEDS: Divalproex Sodium 250 MG TABLET.DR PO (22:01)
[2024-03-12] MEDS: OLANZapine 10 MG TABLET PO (22:03)
[2024-03-13 07:00] VITALS: BMI 16.5
[2024-03-13 07:58] VITALS: BP 117/74; PULSE 95; RESP 14; TEMP 36.8; O2SAT 99
[2024-03-13] MEDS: proGESTerone, Micronized 100 MG CAPSULE PO (08:51)
[2024-03-13] MEDS: LORazepam 0.5 MG TABLET PO ×2 (08:51→14:14)
[2024-03-13] MEDS: hydrOXYzine HCL 25 MG TABLET PO (08:58)
[2024-03-13 13:58] VITALS: BP 119/81; PULSE 85
[2024-03-13] MEDS: Propranolol HCL 10 MG TABLET PO ×2 (14:15→21:50)
[2024-03-13 19:26] VITALS: BP 133/79; PULSE 81; RESP 16; TEMP 36.9; O2SAT 99
--- NOTE | 2024-03-13 22:57 | HO.PSYCHPN ---
Subjective Subjective Date of Service: 03/13/24 Reason For Visit: bipolar mixed state akathesia not responding to tx Subjective Notes: Conditional Voluntary Healthcare Proxy: No Guardianship: No Interim History: Patient seen psychiatric follow-up with her . Chart reviewed labs and med consult reviewed literature reviewed with patient and her family meeting held. Risks benefits alternatives reviewed patient eventually was agreeable to course of ECT given weight loss severe depression anxiety marked difficulty thinking functioning concentrating attending Medication Compliance: Yes Mental Status Exam Mental Status Exam Patient Appearance: Unkempt Patient Orientation: Person, Place and Situation Level of Consciousness: Awake, Restless and Alert Patient Behavior: Restless, Anxious and Distractible Mood Description: Fearful, Anxious, Flat and Nervous Affect Description: Depressed, Anxious, Labile and Apprehensive Patient Cognition Impaired: Yes Ability to Follow Directions: Fair Speech Pattern: Perseverating, Difficulty Finding Words, Rambling and Long Pauses Memory Description: Immediate Impaired and Working Impaired Hallucinations: None Delusions: Not Present Perceptual Disturbances: Depersonalization Thought Process: Rumination and Confusion Thought Content: positive for Racing, positive for Perseveration and positive for Disorganized Depressive Symptoms: Increased Anxiety, Insomnia, Diff. Making Decisions, Muscle Tension, Difficulty Sleeping, Loss of Int. in Activity, Hopelessness and Difficulty Concentrating Abnormal Motor Activity Signs and Symptoms: Agitation and Restlessness Judgement: Fair Judgement and Insight: Patient with some difficulty concentrating decision-making Diagnostics Vital Signs (24Hr): Vital Signs - 24 hr 03/13/24 07:58 03/13/24 13:58 03/13/24 19:26 Temperature 98.3 F 98.4 F Pulse Rate 95 85 81 Respiratory Rate 14 16 Blood Pressure 117/74 119/81 133/79 Pulse Oximetry 99 99 Oxygen Delivery Method Room Air Room Air BMI result Body Mass Index 16.5 Labs 03/11/24 14:44 03/11/24 14:44 Labs: Laboratory Results - last 48 hr 03/12/24 08:22 Valproic Acid 57.9 Imaging Radiology Impressions: ITS Impressions Head CT 03/11/24 17:51 IMPRESSION: No acute intracranial process seen Medications Medications Current Medications Acetaminophen (Acetaminophen 325 Mg Tablet) 650 mg PO Q6H PRN PRN Reason: Headache/Pain Mild Scale (1-3) Al Hydroxide/Mg Hydroxide (Magnesium Hydrox/Alum Hydrox 30 Ml Oral.Susp) 30 ml PO Q6H PRN PRN Reason: Heartburn/Nausea Hydroxyzine HCl (Hydroxyzine Hcl 25 Mg Tablet) 25 mg PO Q6H PRN PRN Reason: Anxiety Last Admin: 03/13/24 08:58 Dose: 25 mg Lorazepam (Lorazepam 0.5 Mg Tablet) 0.5 mg PO TID [facility] Last Admin: 03/13/24 21:56 Dose: Not Given Magnesium Hydroxide (Milk Of Magnesia 30 Ml Oral.Susp) 30 ml PO DAILY PRN PRN Reason: Constipation Pt Own (Estradiol 0. 0375 Mg/24 Hr Patch Semiweekly) 1 patch TOPICAL TuSa [facility] Last Admin: 03/11/24 20:04 Dose: 1 patch Progesterone (Progesterone, Micronized 100 Mg Capsule) 100 mg PO DAILY [facility] Last Admin: 03/13/24 08:51 Dose: 100 mg Propranolol HCl (Propranolol Hcl 10 Mg Tablet) 10 mg PO TID [facility]; Protocol Last Admin: 03/13/24 21:50 Dose: 10 mg Allergies Allergies Allergy/AdvReac Type Severity Reaction Status Date / Time No Known Allergies Allergy Verified 03/11/24 14:49 Assessment & Plan Assessment & Plan (1) Routine medical exam: Status: Acute Code(s): Z00.00 - Encounter for general adult medical examination without abnormal findings Plan 53-year-old female with history of bipolar disorder, panic attacks/anxiety, akathisia admitted to adult Psychiatry with consult placed hospitalist service for ECT risk stratification. #Bipolar disorder/anxiety -plan per psychiatry -pt scores 0 points, Class I, on revised cardiac risk index. has no known cardiovascular risk factors. At this time no contraindication exists that should preclude patient from undergoing ect Thank you for allowing me to participate in this consult. Signing off at this time. Please do not hesitate to call for further questions or for any acute medical issues Patient educated on: diagnosis, medication risk/benefits and ECT Guardian/Caregiver educated on: diagnosis, medication risk/benefits and ECT Informed Consent: further education needed Reason for continued inpatient stay Substantial Risk for: inability to function, rapid decompensation and med/psych decompensation Time Spent With Patient Time: Total time managing care of this patient today _45___ minutes.
[2024-03-14] VITALS (11 sets, daily range): BP systolic 101–131; BP diastolic 64–90; PULSE 81–107; RESP 10–20; TEMP 36.7–37.1; O2SAT 97–100; BMI 16.4
--- NOTE | 2024-03-14 08:27 | MHC.SHP ---
Pre-Procedural Eval Section A - 24 Hr Update-Section A only Date of Service: 03/14/24 The patient is an INPATIENT: Yes Changes since office visit: Yes Changes in Medication and Yes Patient answered all questions; No Cold of Flu in the past 2 weeks and No New Medical Problems The patient has been examined within 24 hours of the surgical procedure. The History & Physical has been completed within 30 days and I have reviewed it.: Yes Section B - Complete if H&P > 30 days Chief Complaint: bipolar mixed state akathesia not responding to tx Allergies: Allergies Allergy/AdvReac Type Severity Reaction Status Date / Time No Known Allergies Allergy Verified 03/11/24 14:49 Plan I have reviewed the history and physical and performed a pertinent physical examination on my patient. No changes have occurred unless specified. Time Spent With Patient Time: Total time managing care of this patient today ____ minutes.
--- NOTE | 2024-03-14 08:29 | P.CONAN_ITS ---
[facility] Active Problems Active Problems: All Active Problems Routine medical exam (Acute) Bipolar affective, mixed, severe (Acute) Akathisia (Acute) Panic attacks (Acute) Anxiety (Acute) Bipolar 1 disorder, depressed, severe (Acute) Cognitive and behavioral changes (Acute) Other anxiety states (Acute) Past Medical History Medical History Bipolar affective, mixed, severe Akathisia Panic attacks Anxiety No known health problems Surgical History History of Problems with Anesthesia: No Social History Social History Household Members: Spouse Household Members Other:: Housing: House Do you presently have visiting nurse or other home services: No Alcohol intake: current Alcohol intake frequency: a few times a week Alcohol type: wine Patient Tobacco Use Status: Never used Tobacco e-Cigarette/Vaping Use: Never Used Second Hand Smoke Exposure: No service: No Sexual orientation: Straight/Heterosexual Meds Allergies Allergy/AdvReac Type Severity Reaction Status Date / Time No Known Allergies Allergy Verified 03/11/24 14:49 Active Medications: Current Medications Acetaminophen (Acetaminophen 325 Mg Tablet) 650 mg PO Q6H PRN PRN Reason: Headache/Pain Mild Scale (1-3) Al Hydroxide/Mg Hydroxide (Magnesium Hydrox/Alum Hydrox 30 Ml Oral.Susp) 30 ml PO Q6H PRN PRN Reason: Heartburn/Nausea Hydroxyzine HCl (Hydroxyzine Hcl 25 Mg Tablet) 25 mg PO Q6H PRN PRN Reason: Anxiety Last Admin: 03/13/24 08:58 Dose: 25 mg Lorazepam (Lorazepam 0.5 Mg Tablet) 0.5 mg PO TID [facility] Last Admin: 03/13/24 21:56 Dose: Not Given Magnesium Hydroxide (Milk Of Magnesia 30 Ml Oral.Susp) 30 ml PO DAILY PRN PRN Reason: Constipation Pt Own (Estradiol 0. 0375 Mg/24 Hr Patch Semiweekly) 1 patch TOPICAL TuSa [facility] Last Admin: 03/11/24 20:04 Dose: 1 patch Progesterone (Progesterone, Micronized 100 Mg Capsule) 100 mg PO DAILY [facility] Last Admin: 03/13/24 08:51 Dose: 100 mg Propranolol HCl (Propranolol Hcl 10 Mg Tablet) 10 mg PO TID [facility]; Protocol Last Admin: 03/13/24 21:50 Dose: 10 mg Home Medications ?Medication ?Instructions ?Recorded ?Confirmed ?Last Taken ?Type benztropine 0.5 mg tablet 0.5 mg PO BEDTIME 03/11/24 03/11/24 03/10/24 History divalproex 250 mg tablet,delayed 500 mg PO BEDTIME 03/11/24 03/11/24 03/10/24 History release escitalopram oxalate 5 mg tablet 5 mg PO DAILY 03/11/24 03/11/24 03/11/24 History estradiol 0.0375 mg/24 hr 1 patch topical 2XW 03/11/24 03/11/24 03/11/24 History semiweekly transdermal patch lorazepam 0.5 mg tablet 0.5 mg PO BID 03/11/24 03/11/24 03/11/24 History olanzapine 10 mg tablet 10 mg PO BEDTIME 03/11/24 03/11/24 03/10/24 History progesterone micronized 100 mg 100 mg PO DAILY 03/11/24 03/11/24 03/11/24 History capsule propranolol 10 mg tablet 10 - 20 mg PO TID PRN anxiety 03/11/24 03/11/24 Unknown History Exam Height,Weight and Vital Signs: Height 5 ft 6 in Weight 46.437 kg Last Vital Signs Temp 98.7 F 03/14/24 07:54 Pulse 105 H 03/14/24 07:54 Resp 18 03/14/24 07:54 BP 112/64 03/14/24 07:54 Pulse Ox 97 03/14/24 07:54 O2 Del Method Room Air 03/14/24 07:54 Pertinent Lab Results Pertinent Lab Results: Laboratory Tests 03/11/24 03/11/24 03/11/24 14:44 17:25 17:49 WBC 6.2 RBC 4.17 L Hgb 13.9 Hct 39.4 MCV 94.5 MCH 33.3 H MCHC 35.3 H RDW 12.2 Plt Count 311 MPV 8.6 L Immature Gran % (Auto) 0.2 Neut % (Auto) 66.1 Lymph % (Auto) 21.5 Davis % (Auto) 11.1 H Eos % (Auto) 0.3 Baso % (Auto) 0.8 Lymph # (Auto) 1.3 Davis # (Auto) 0.7 Eos # (Auto) 0.0 Baso # (Auto) 0.1 Abs Immat Gran (auto) 0.01 Absolute Neuts (auto) 4.1 Absolute Nucleated RBC 0.000 Nucleated RBC % (auto) 0.0 Sodium 137 Potassium 4.1 Chloride 102 Carbon Dioxide 25 Anion Gap 14 BUN 13 Creatinine 0.78 Estim Creat Clear Calc 63.8 Estimated GFR > 60 Random Glucose 110 Calcium 10.0 Total Bilirubin 0.4 AST 20 ALT 18 Alkaline Phosphatase 59 Total Protein 7.1 Albumin 4.8 TSH 0.77 Urine Color Yellow Urine Appearance Clear Urine pH 7.0 Ur Specific [place] 1.015 Urine Protein Negative Urine Glucose (UA) Negative Urine Ketones Negative Urine Blood Moderate (2+) H Urine Nitrite Negative Ur Leukocyte Esterase Negative Urine RBC 11-20 H Urine WBC 0-5 Ur Squamous Epith Cells 6-10 Urine Bacteria None Seen Hyaline Casts 0-2 Urine Test NEGATIVE Urine Opiates Screen Not Detected Ur Buprenorphine Scrn Not Detected Ur Oxycodone Screen Not Detected Urine Methadone Screen Not Detected Urine Fentanyl Screen Not Detected Ur Barbiturates Screen Not Detected Valproic Acid Ur Phencyclidine Scrn Not Detected Ur Amphetamines Screen Not Detected U Benzodiazepines Scrn Not Detected Urine Cocaine Screen Not Detected U Marijuana (THC) Screen Not Detected Ethyl Alcohol < 10 03/12/24 08:22 WBC RBC Hgb Hct MCV MCH MCHC RDW Plt Count MPV Immature Gran % (Auto) Neut % (Auto) Lymph % (Auto) Davis % (Auto) Eos % (Auto) Baso % (Auto) Lymph # (Auto) Davis # (Auto) Eos # (Auto) Baso # (Auto) Abs Immat Gran (auto) Absolute Neuts (auto) Absolute Nucleated RBC Nucleated RBC % (auto) Sodium Potassium Chloride Carbon Dioxide Anion Gap BUN Creatinine Estim Creat Clear Calc Estimated GFR Random Glucose Calcium Total Bilirubin AST ALT Alkaline Phosphatase Total Protein Albumin TSH Urine Color Urine Appearance Urine pH Ur Specific [place] Urine Protein Urine Glucose (UA) Urine Ketones Urine Blood Urine Nitrite Ur Leukocyte Esterase Urine RBC Urine WBC Ur Squamous Epith Cells Urine Bacteria Hyaline Casts Urine Test Urine Opiates Screen Ur Buprenorphine Scrn Ur Oxycodone Screen Urine Methadone Screen Urine Fentanyl Screen Ur Barbiturates Screen Valproic Acid 57.9 Ur Phencyclidine Scrn Ur Amphetamines Screen U Benzodiazepines Scrn Urine Cocaine Screen U Marijuana (THC) Screen Ethyl Alcohol Airway Mallampati Class: II TM Dist: >3cm Loose/Missing/Broken Teeth: No Heart: RRR Lungs: CTA Assessment and Plan Assessment Anesthesia Assessment: Anesthesia Plan Discussed and Chart Reviewed Final Anesthetic Review History of Problems with Anesthesia: No NPO: Yes ASA Class: II Final Preanesthetic Review: Meds/Allgs Chart Reviewed, Consent Obtained/Reviewed and Anes Risks/Benef Reviewed Patient Risk: Low Procedure Risk: Intermediate Anesthetic Plan Anesthetic Plan: GA Disposition: Standard PACU
--- NOTE | 2024-03-14 08:29 | HO.ECTPROC ---
ECT Procedure Note Diagnosis/Treatment Date of Service: 03/14/24 Diagnosis: Bipolar disorder Previous ECT Date: 03/14/24 Current Treatment Number: 1 Treatment: Series Interval Clinical Notes: Patient what appears to be bipolar mixed state question of antidepressant induced cycling has been unstable for many months. Restlessness question akathisia referred for inpatient treatment secondary to severe depression and anxiety with severe weight loss marked lack of ability to function disorganized thinking Time: Total time managing care of this patient today _30___ minutes. ECT Settings Device: THYMATRON DGx Electrode Placement: Right Unilateral Program/Pulse Width: 0.50 Energy Percent: 100 Seizure Duration By EEG (in seconds): 60 Medications Administration General Anesthetic: Etomidate (14) Muscle Relaxant: Succinylcholine (80) Ancillary Medications Anti-emetics: Zofran - Pre ECT Miscillaneous Medications: Midazolam (2 post) Airway Management Airway Management: Bag Mask Ventilation Treatment Recommendations No Changes Recommended: No change Notes: Patient is severely anxious pretreatment tolerated ECT with good effect given Versed post Pt Tolerated Procedure w/o Issue: Yes
[2024-03-14] MEDS: LORazepam 0.5 MG TABLET PO ×3 (10:14→22:00)
[2024-03-14] MEDS: Propranolol HCL 10 MG TABLET PO ×3 (10:14→22:00)
[2024-03-14] MEDS: proGESTerone, Micronized 100 MG CAPSULE PO (10:14)
--- NOTE | 2024-03-14 14:44 | MHC.CLN ---
RE: CONSULT HT5'6 WT 46KG (03/14/24) IBW 130#+/-10% PREVIOUS WT HX 49.9KG (12/17/23) PT WITH 8% SIGNIFICANT WT LOSS X 90DAYS PT REPORTED 20# WT LOSS WITH NO SPECIFIED TIMEFRAME PT IS 78% IBW INDICATES MODERATELY UNDER WT FOR HT REVIEWED [id number] DIET RX: REGULAR-APPROPRIATE RECOMMEND ADDING ENSURE TID TO PROVIDE 1050KCALS, 60G PROTEIN SUPPLEMENT IS SUITABLE FOR LACTOSE INTOLERANCE-MD NOTED CANNOT HAVE DAIRY ALLERGIES LISTED NKA PDA TO ASSIST PT IN FILLING OUT MEAL CHOICES-PROJECT CONTROL MANAGER AWARE MONITOR PO INTAKE AND ENCOURAGE SUPPLEMENT WEEKLY WEIGHTS
[2024-03-14] MEDS: Acetaminophen 325 MG TABLET 650 MG PO (17:35)
[2024-03-14] MEDS: hydrOXYzine HCL 25 MG TABLET PO (22:00)
[2024-03-14] MEDS: LORazepam 1 MG TABLET PO (22:00)
--- NOTE | 2024-03-14 23:36 | P.PNPSI_ITS ---
Subjective Subjective Date of Service: 03/14/24 Reason For Visit: bipolar mixed state akathesia not responding to tx Subjective Notes: Conditional Voluntary Healthcare Proxy: No Guardianship: No Interim History: Patient tolerated 1st ECT Depakote discontinued SSRI discontinued question of antipsychotic induced severe akathisia at present lorazepam and propranolol monitor for over sedation patient did seem more organized post ECT Medication Compliance: Yes Mental Status Exam Mental Status Exam Patient Appearance: Perspiring Patient Orientation: Person, Place and Situation Level of Consciousness: Awake, Restless and Alert Patient Behavior: Restless, Anxious and Distractible Mood Description: Fearful, Anxious, Flat and Nervous Affect Description: Depressed, Anxious, Labile and Apprehensive Patient Cognition Impaired: Yes Ability to Follow Directions: Fair Speech Pattern: Perseverating, Difficulty Finding Words, Rambling and Long Pauses Memory Description: Immediate Impaired and Working Impaired Hallucinations: None Delusions: Not Present Perceptual Disturbances: Depersonalization Thought Process: Rumination and Confusion Thought Content: positive for Racing, positive for Perseveration and positive for Disorganized Depressive Symptoms: Increased Anxiety, Insomnia, Diff. Making Decisions, Muscle Tension, Difficulty Sleeping, Loss of Int. in Activity, Hopelessness and Difficulty Concentrating Abnormal Motor Activity Signs and Symptoms: Agitation and Restlessness Judgement: Fair Judgement and Insight: Patient with some difficulty concentrating decision-making Diagnostics Vital Signs (24Hr): Vital Signs - 24 hr 03/14/24 07:54 03/14/24 08:00 03/14/24 08:54 Temperature 98.7 F 98.2 F 98.2 F Pulse Rate 105 H 105 H 90 Respiratory Rate 18 16 18 Blood Pressure 112/64 112/64 119/86 Pulse Oximetry 97 97 98 Oxygen Delivery Method Room Air Room Air Room Air Oxygen Flow Rate 03/14/24 09:00 03/14/24 09:05 03/14/24 09:10 Temperature 98.7 F Pulse Rate 87 107 H 93 Respiratory Rate 18 10 L 20 Blood Pressure 114/79 101/67 118/80 Pulse Oximetry 100 100 100 Oxygen Delivery Method Nasal Cannula with ETCO2 Nasal Cannula with ETCO2 Nasal Cannula with ETCO2 Oxygen Flow Rate 2 2 2 03/14/24 09:15 03/14/24 09:30 03/14/24 09:51 Temperature 98.2 F 98.4 F Pulse Rate 81 85 97 Respiratory Rate 16 16 18 Blood Pressure 111/81 113/74 128/90 H Pulse Oximetry 100 100 99 Oxygen Delivery Method Nasal Cannula with ETCO2 Room Air Oxygen Flow Rate 03/14/24 15:35 03/14/24 21:53 Temperature 98.0 F Pulse Rate 88 95 Respiratory Rate 18 Blood Pressure 112/82 131/83 Pulse Oximetry 100 Oxygen Delivery Method Room Air Oxygen Flow Rate BMI result Body Mass Index 16.4 Labs 03/11/24 14:44 03/11/24 14:44 EKG EKG: reviewed Imaging Radiology Impressions: ITS Impressions Head CT 03/11/24 17:51 IMPRESSION: No acute intracranial process seen Medications Medications Current Medications Acetaminophen (Acetaminophen 325 Mg Tablet) 650 mg PO Q6H PRN PRN Reason: Headache/Pain Mild Scale (1-3) Last Admin: 03/14/24 17:35 Dose: 650 mg Al Hydroxide/Mg Hydroxide (Magnesium Hydrox/Alum Hydrox 30 Ml Oral.Susp) 30 ml PO Q6H PRN PRN Reason: Heartburn/Nausea Hydroxyzine HCl (Hydroxyzine Hcl 25 Mg Tablet) 25 mg PO Q6H PRN PRN Reason: Anxiety Last Admin: 03/13/24 08:58 Dose: 25 mg Hydroxyzine HCl (Hydroxyzine Hcl 25 Mg Tablet) 25 mg PO BEDTIME [facility] Last Admin: 03/14/24 22:00 Dose: 25 mg Lorazepam (Lorazepam 0.5 Mg Tablet) 0.5 mg PO TID [facility] Last Admin: 03/14/24 22:00 Dose: 0.5 mg Lorazepam (Lorazepam 1 Mg Tablet) 1 mg PO TID PRN PRN Reason: severe anxiety Last Admin: 03/14/24 22:00 Dose: 1 mg Magnesium Hydroxide (Milk Of Magnesia 30 Ml Oral.Susp) 30 ml PO DAILY PRN PRN Reason: Constipation Pt Own (Estradiol 0. 0375 Mg/24 Hr Patch Semiweekly) 1 patch TOPICAL TuSa [facility] Last Admin: 03/11/24 20:04 Dose: 1 patch Progesterone (Progesterone, Micronized 100 Mg Capsule) 100 mg PO DAILY [facility] Last Admin: 03/14/24 10:14 Dose: 100 mg Propranolol HCl (Propranolol Hcl 10 Mg Tablet) 10 mg PO TID [facility]; Protocol Last Admin: 03/14/24 22:00 Dose: 10 mg Allergies Allergies Allergy/AdvReac Type Severity Reaction Status Date / Time No Known Allergies Allergy Verified 03/11/24 14:49 Assessment & Plan Assessment & Plan (1) Bipolar affective, mixed, severe: Status: Acute Code(s): F31.63 - Bipolar disorder, current episode mixed, severe, without psychotic features (2) Akathisia: Status: Acute Code(s): G25.71 - Drug induced akathisia (3) Panic attacks: Status: Acute Code(s): F41.0 - Panic disorder [episodic paroxysmal anxiety] Plan ECT 1. Completed patient tolerated well continue treatment series hopefully stabilize inpatient and follow-up outpatient Difficulty with working attention monitor response to Ativan dosing Patient educated on: diagnosis and medication risk/benefits Informed Consent: understands Reason for continued inpatient stay Substantial Risk for: inability to function Time Spent With Patient Time: Total time managing care of this patient today ____ minutes.
--- NOTE | 2024-03-15 08:52 | P.PNPSI_ITS ---
Subjective Subjective Date of Service: 03/15/24 Reason For Visit: bipolar mixed state akathesia not responding to tx Subjective Notes: Conditional Voluntary Interim History: pt slept. Pt with ruminations about inability to function, thinking ect may not help, however, per nursing, improvement noted even after one ect tx. No SI/HI. No appreciable movement disorder symptoms noted. Medication Compliance: Yes Review of Systems Review of Systems General: No fevers, malaise, unintentional weight loss HEENT: No blurred vision, diplopia. No sore throat, nasal congestion, rhinorrhea, sinus pain, ear pain Cardiovascular: No chest pain, palpitations, or leg edema Respiratory: No shortness of breath, wheezing, cough GI: No abdominal pain, nausea, vomiting, diarrhea, constipation, melena, hematochezia : No dysuria, hematuria, increased urinary frequency, decreased urinary output MSK: No myalgia, back pain Neuro: No headaches, weakness, paresthesias Skin: No rashes or lesions Yes all other systems are reviewed and are negative Constitutional: Denies fatigue and Denies fever(s) Cardiovascular: Denies chest pain at rest and Denies dyspnea Respiratory: Denies dyspnea Reports behavioral changes Psychiatric: Reports anxiety, Reports behavioral changes and Reports depression Endocrine: Denies fatigue Mental Status Exam Mental Status Exam Patient Appearance: Perspiring Patient Orientation: Person, Place and Situation Level of Consciousness: Awake, Restless and Alert Patient Behavior: Restless, Anxious and Distractible Mood Description: Fearful, Anxious, Flat and Nervous Affect Description: Depressed, Anxious, Labile and Apprehensive Patient Cognition Impaired: Yes Ability to Follow Directions: Fair Speech Pattern: Perseverating, Difficulty Finding Words, Rambling and Long Pauses Memory Description: Immediate Impaired and Working Impaired Diagnostics Vital Signs (24Hr): Vital Signs - 24 hr 03/14/24 08:54 03/14/24 09:00 03/14/24 09:05 Temperature 98.2 F 98.7 F Pulse Rate 90 87 107 H Respiratory Rate 18 18 10 L Blood Pressure 119/86 114/79 101/67 Pulse Oximetry 98 100 100 Oxygen Delivery Method Room Air Nasal Cannula with ETCO2 Nasal Cannula with ETCO2 Oxygen Flow Rate 2 2 03/14/24 09:10 03/14/24 09:15 03/14/24 09:30 Temperature 98.2 F Pulse Rate 93 81 85 Respiratory Rate 20 16 16 Blood Pressure 118/80 111/81 113/74 Pulse Oximetry 100 100 100 Oxygen Delivery Method Nasal Cannula with ETCO2 Nasal Cannula with ETCO2 Room Air Oxygen Flow Rate 2 03/14/24 09:51 03/14/24 15:35 03/14/24 21:53 Temperature 98.4 F 98.0 F Pulse Rate 97 88 95 Respiratory Rate 18 18 Blood Pressure 128/90 H 112/82 131/83 Pulse Oximetry 99 100 Oxygen Delivery Method Room Air Oxygen Flow Rate BMI result Body Mass Index 16.4 Labs 03/11/24 14:44 03/11/24 14:44 Imaging Radiology Impressions: ITS Impressions Head CT 03/11/24 17:51 IMPRESSION: No acute intracranial process seen Medications Medications Current Medications Acetaminophen (Acetaminophen 325 Mg Tablet) 650 mg PO Q6H PRN PRN Reason: Headache/Pain Mild Scale (1-3) Last Admin: 03/14/24 17:35 Dose: 650 mg Al Hydroxide/Mg Hydroxide (Magnesium Hydrox/Alum Hydrox 30 Ml Oral.Susp) 30 ml PO Q6H PRN PRN Reason: Heartburn/Nausea Hydroxyzine HCl (Hydroxyzine Hcl 25 Mg Tablet) 25 mg PO Q6H PRN PRN Reason: Anxiety Last Admin: 03/13/24 08:58 Dose: 25 mg Hydroxyzine HCl (Hydroxyzine Hcl 25 Mg Tablet) 25 mg PO BEDTIME [facility] Last Admin: 03/14/24 22:00 Dose: 25 mg Lorazepam (Lorazepam 0.5 Mg Tablet) 0.5 mg PO TID [facility] Last Admin: 03/14/24 22:00 Dose: 0.5 mg Lorazepam (Lorazepam 1 Mg Tablet) 1 mg PO TID PRN PRN Reason: severe anxiety Last Admin: 03/14/24 22:00 Dose: 1 mg Magnesium Hydroxide (Milk Of Magnesia 30 Ml Oral.Susp) 30 ml PO DAILY PRN PRN Reason: Constipation Pt Own (Estradiol 0. 0375 Mg/24 Hr Patch Semiweekly) 1 patch TOPICAL TuSa [facility] Last Admin: 03/11/24 20:04 Dose: 1 patch Progesterone (Progesterone, Micronized 100 Mg Capsule) 100 mg PO DAILY [facility] Last Admin: 03/14/24 10:14 Dose: 100 mg Propranolol HCl (Propranolol Hcl 10 Mg Tablet) 10 mg PO TID [facility]; Protocol Last Admin: 03/14/24 22:00 Dose: 10 mg Allergies Allergies Allergy/AdvReac Type Severity Reaction Status Date / Time No Known Allergies Allergy Verified 03/11/24 14:49 Assessment & Plan Assessment & Plan (1) Bipolar affective, mixed, severe: Status: Acute Code(s): F31.63 - Bipolar disorder, current episode mixed, severe, without psychotic features (2) Akathisia: Status: Acute Code(s): G25.71 - Drug induced akathisia (3) Panic attacks: Status: Acute Code(s): F41.0 - Panic disorder [episodic paroxysmal anxiety] Plan ECT 1. Completed patient tolerated well continue treatment series hopefully stabilize inpatient and follow-up outpatient Difficulty with working attention monitor response to Ativan dosing 03/15- ruminations and ambivalent presentation noted. but no motor symptoms. Reason for continued inpatient stay Substantial Risk for: inability to function Time Spent With Patient Time: Total time managing care of this patient today ____ minutes.
[2024-03-15 09:36] VITALS: BP 104/67; PULSE 114; RESP 18; TEMP 37.3; O2SAT 100
[2024-03-15] MEDS: Propranolol HCL 10 MG TABLET PO ×2 (09:39→15:43)
[2024-03-15] MEDS: proGESTerone, Micronized 100 MG CAPSULE PO (09:39)
[2024-03-15] MEDS: LORazepam 0.5 MG TABLET PO ×3 (09:39→22:39)
[2024-03-15 15:43] VITALS: BP 108/62; PULSE 98
[2024-03-15] MEDS: hydrOXYzine HCL 25 MG TABLET PO ×2 (15:43→22:39)
[2024-03-15 22:34] VITALS: BP 90/64; PULSE 82; RESP 18; TEMP 36.9; O2SAT 97
[2024-03-15] MEDS: LORazepam 1 MG TABLET PO (22:39)
[2024-03-16 08:00] VITALS: BP 93/65; PULSE 89; RESP 16; TEMP 37.1; O2SAT 98
[2024-03-16] MEDS: proGESTerone, Micronized 100 MG CAPSULE PO (09:36)
[2024-03-16] MEDS: LORazepam 0.5 MG TABLET PO ×3 (09:37→22:40)
[2024-03-16 09:45] VITALS: BP 93/65; PULSE 89
[2024-03-16 15:59] VITALS: BP 129/78; PULSE 113
[2024-03-16] MEDS: Propranolol HCL 10 MG TABLET PO ×2 (15:59→22:40)
[2024-03-16] MEDS: Milk of Magnesia 30 ML ORAL.SUSP PO (17:31)
[2024-03-16 20:00] VITALS: BP 114/80; PULSE 92; RESP 18; TEMP 36.8; O2SAT 100
[2024-03-16 22:40] VITALS: BP 114/71; PULSE 83
[2024-03-16] MEDS: hydrOXYzine HCL 25 MG TABLET PO (22:40)
--- NOTE | 2024-03-16 23:02 | PC.NURSE ---
Clarification of HS Ativan order Patient to receive scheduled HS Ativan as scheduled per Esha Mendez APRN.
[2024-03-17] VITALS (12 sets, daily range): BP systolic 92–144; BP diastolic 67–95; PULSE 82–117; RESP 14–20; TEMP 36.4–38.4; O2SAT 96–100
--- NOTE | 2024-03-17 06:39 | HO.PSYCHPN ---
Subjective Subjective Date of Service: 03/16/24 Reason For Visit: bipolar mixed state akathesia not responding to tx Subjective Notes: Conditional Voluntary Interim History: pt slept. Pt continues to present with rumination, wanting to go home, not thinking that ect or any other tx would work. Interestingly, more motor symptoms noted today compared to yesterday, brief tapping of feet, some upper shakiness. Review of Systems Review of Systems General: No fevers, malaise, unintentional weight loss HEENT: No blurred vision, diplopia. No sore throat, nasal congestion, rhinorrhea, sinus pain, ear pain Cardiovascular: No chest pain, palpitations, or leg edema Respiratory: No shortness of breath, wheezing, cough GI: No abdominal pain, nausea, vomiting, diarrhea, constipation, melena, hematochezia : No dysuria, hematuria, increased urinary frequency, decreased urinary output MSK: No myalgia, back pain Neuro: No headaches, weakness, paresthesias Skin: No rashes or lesions Yes all other systems are reviewed and are negative Constitutional: Denies fatigue and Denies fever(s) Cardiovascular: Denies chest pain at rest and Denies dyspnea Respiratory: Denies dyspnea Reports behavioral changes Psychiatric: Reports anxiety, Reports behavioral changes and Reports depression Endocrine: Denies fatigue Mental Status Exam Mental Status Exam Patient Appearance: Perspiring Patient Orientation: Person, Place and Situation Level of Consciousness: Awake, Restless and Alert Patient Behavior: Restless, Anxious and Distractible Mood Description: Fearful, Anxious, Flat and Nervous Affect Description: Depressed, Anxious, Labile and Apprehensive Patient Cognition Impaired: Yes Ability to Follow Directions: Fair Speech Pattern: Perseverating, Difficulty Finding Words, Rambling and Long Pauses Memory Description: Immediate Impaired and Working Impaired Diagnostics Vital Signs (24Hr): Vital Signs - 24 hr 03/16/24 08:00 03/16/24 09:45 03/16/24 15:59 Temperature 98.7 F Pulse Rate 89 89 113 H Respiratory Rate 16 Blood Pressure 93/65 93/65 129/78 Pulse Oximetry 98 Oxygen Delivery Method Room Air 03/16/24 20:00 03/16/24 22:40 Temperature 98.3 F Pulse Rate 92 83 Respiratory Rate 18 Blood Pressure 114/80 114/71 Pulse Oximetry 100 Oxygen Delivery Method Room Air BMI result Body Mass Index 16.4 Labs 03/11/24 14:44 03/11/24 14:44 Imaging Radiology Impressions: ITS Impressions Head CT 03/11/24 17:51 IMPRESSION: No acute intracranial process seen Medications Medications Current Medications Acetaminophen (Acetaminophen 325 Mg Tablet) 650 mg PO Q6H PRN PRN Reason: Headache/Pain Mild Scale (1-3) Last Admin: 03/14/24 17:35 Dose: 650 mg Al Hydroxide/Mg Hydroxide (Magnesium Hydrox/Alum Hydrox 30 Ml Oral.Susp) 30 ml PO Q6H PRN PRN Reason: Heartburn/Nausea Hydroxyzine HCl (Hydroxyzine Hcl 25 Mg Tablet) 25 mg PO Q6H PRN PRN Reason: Anxiety Last Admin: 03/15/24 15:43 Dose: 25 mg Hydroxyzine HCl (Hydroxyzine Hcl 25 Mg Tablet) 25 mg PO BEDTIME [facility] Last Admin: 03/16/24 22:40 Dose: 25 mg Lorazepam (Lorazepam 0.5 Mg Tablet) 0.5 mg PO TID [facility] Last Admin: 03/16/24 22:40 Dose: 0.5 mg Lorazepam (Lorazepam 1 Mg Tablet) 1 mg PO TID PRN PRN Reason: severe anxiety Last Admin: 03/15/24 22:39 Dose: 1 mg Magnesium Hydroxide (Milk Of Magnesia 30 Ml Oral.Susp) 30 ml PO DAILY PRN PRN Reason: Constipation Last Admin: 03/16/24 17:31 Dose: 30 ml Pt Own (Estradiol 0. 0375 Mg/24 Hr Patch Semiweekly) 1 patch TOPICAL TuSa [facility] Last Admin: 03/15/24 09:38 Dose: 1 patch Progesterone (Progesterone, Micronized 100 Mg Capsule) 100 mg PO DAILY [facility] Last Admin: 03/16/24 09:36 Dose: 100 mg Propranolol HCl (Propranolol Hcl 10 Mg Tablet) 10 mg PO TID [facility]; Protocol Last Admin: 03/16/24 22:40 Dose: 10 mg Allergies Allergies Allergy/AdvReac Type Severity Reaction Status Date / Time No Known Allergies Allergy Verified 03/11/24 14:49 Assessment & Plan Assessment & Plan (1) Bipolar affective, mixed, severe: Status: Acute Code(s): F31.63 - Bipolar disorder, current episode mixed, severe, without psychotic features (2) Akathisia: Status: Acute Code(s): G25.71 - Drug induced akathisia (3) Panic attacks: Status: Acute Code(s): F41.0 - Panic disorder [episodic paroxysmal anxiety] Plan ECT 1. Completed patient tolerated well continue treatment series hopefully stabilize inpatient and follow-up outpatient Difficulty with working attention monitor response to Ativan dosing 03/15- ruminations and ambivalent presentation noted. but no motor symptoms. 03/16 continue tx. Reason for continued inpatient stay Substantial Risk for: inability to function Time Spent With Patient Time: Total time managing care of this patient today ____ minutes.
--- NOTE | 2024-03-17 09:01 | MHC.SHP ---
Pre-Procedural Eval Section A - 24 Hr Update-Section A only Date of Service: 03/17/24 The patient is an INPATIENT: Yes Changes since office visit: No Cold of Flu in the past 2 weeks, No New Medical Problems, No Changes in Medication and No Patient answered all questions The patient has been examined within 24 hours of the surgical procedure. The History & Physical has been completed within 30 days and I have reviewed it.: Yes Section B - Complete if H&P > 30 days Chief Complaint: bipolar mixed state akathesia not responding to tx Allergies: Allergies Allergy/AdvReac Type Severity Reaction Status Date / Time No Known Allergies Allergy Verified 03/11/24 14:49 Plan I have reviewed the history and physical and performed a pertinent physical examination on my patient. No changes have occurred unless specified. Time Spent With Patient Time: Total time managing care of this patient today ____ minutes.
--- NOTE | 2024-03-17 09:11 | P.CONAN_ITS ---
HPI - Anesthesia Eval Consult details Narrative: 53 yo female patient for ECT [facility] Active Problems Active Problems: All Active Problems (Updated 03/12/24 @ 19:43 by MARQUIS House) Routine medical exam (Acute) Bipolar affective, mixed, severe (Acute) Akathisia (Acute) Panic attacks (Acute) Anxiety (Acute) Bipolar 1 disorder, depressed, severe (Acute) Cognitive and behavioral changes (Acute) Other anxiety states (Acute) Past Medical History Medical History Bipolar affective, mixed, severe Akathisia Panic attacks Anxiety No known health problems Family History Family history of problems with anesthesia: No Surgical History History of Problems with Anesthesia: No Social History Social History Household Members: Spouse Household Members Other:: Housing: House Do you presently have visiting nurse or other home services: No Alcohol intake: current Alcohol intake frequency: does not drink Alcohol type: wine Patient Tobacco Use Status: Never used Tobacco Smoked in Last 30 Days: No e-Cigarette/Vaping Use: Never Used Patient Interested in Nicotine Replacement: No Patient Given Instructions on How to Stop Smoking: No (non smoker) Second Hand Smoke Exposure: No Use of substances other than those prescribed or required for medical reasons: No Currently Displaying Signs/Symptoms of Drug Intoxication Withdrawal: No Any prior treatment program specific to substance use: No Have you been hit, kicked, punched, or otherwise hurt by someone within the past year? If so, by whom?: No Do you feel safe in your current relationship?: Yes Is there a partner from a previous relationship who is making you feel unsafe now?: No Are you made to feel afraid or neglected: No Are you DNR?: No Advance Directives: No Do you have thoughts of harming others: None Do you have a plan to hurt others: No Plan Recently lost weight without trying: Yes How much weight loss: 14-23 pounds Eating poorly because of decreased appetite: No Nutrition screen score: 4 Nutrition Risks: No Nutritional Risk Patient : No : No Poor oral hygiene: No service: No Sexual orientation: Straight/Heterosexual Meds Allergies Allergy/AdvReac Type Severity Reaction Status Date / Time No Known Allergies Allergy Verified 03/11/24 14:49 Active Medications: Current Medications Acetaminophen (Acetaminophen 325 Mg Tablet) 650 mg PO Q6H PRN PRN Reason: Headache/Pain Mild Scale (1-3) Last Admin: 03/14/24 17:35 Dose: 650 mg Al Hydroxide/Mg Hydroxide (Magnesium Hydrox/Alum Hydrox 30 Ml Oral.Susp) 30 ml PO Q6H PRN PRN Reason: Heartburn/Nausea Hydroxyzine HCl (Hydroxyzine Hcl 25 Mg Tablet) 25 mg PO Q6H PRN PRN Reason: Anxiety Last Admin: 03/15/24 15:43 Dose: 25 mg Hydroxyzine HCl (Hydroxyzine Hcl 25 Mg Tablet) 25 mg PO BEDTIME [facility] Last Admin: 03/16/24 22:40 Dose: 25 mg Lactated Ringer's (Lr) 1,000 mls @ 50 mls/hr IVCONT .Q20H [place] Lorazepam (Lorazepam 0.5 Mg Tablet) 0.5 mg PO TID [facility] Last Admin: 03/16/24 22:40 Dose: 0.5 mg Lorazepam (Lorazepam 1 Mg Tablet) 1 mg PO TID PRN PRN Reason: severe anxiety Last Admin: 03/15/24 22:39 Dose: 1 mg Magnesium Hydroxide (Milk Of Magnesia 30 Ml Oral.Susp) 30 ml PO DAILY PRN PRN Reason: Constipation Last Admin: 03/16/24 17:31 Dose: 30 ml Pt Own (Estradiol 0. 0375 Mg/24 Hr Patch Semiweekly) 1 patch TOPICAL TuSa [facility] Last Admin: 03/15/24 09:38 Dose: 1 patch Progesterone (Progesterone, Micronized 100 Mg Capsule) 100 mg PO DAILY [facility] Last Admin: 03/16/24 09:36 Dose: 100 mg Propranolol HCl (Propranolol Hcl 10 Mg Tablet) 10 mg PO TID [facility]; Protocol Last Admin: 03/16/24 22:40 Dose: 10 mg Home Medications ?Medication ?Instructions ?Recorded ?Confirmed ?Last Taken ?Type benztropine 0.5 mg tablet 0.5 mg PO BEDTIME 03/11/24 03/11/24 03/10/24 History divalproex 250 mg tablet,delayed 500 mg PO BEDTIME 03/11/24 03/11/24 03/10/24 History release escitalopram oxalate 5 mg tablet 5 mg PO DAILY 03/11/24 03/11/24 03/11/24 History estradiol 0.0375 mg/24 hr 1 patch topical 2XW 03/11/24 03/11/24 03/11/24 History semiweekly transdermal patch lorazepam 0.5 mg tablet 0.5 mg PO BID 03/11/24 03/11/24 03/11/24 History olanzapine 10 mg tablet 10 mg PO BEDTIME 03/11/24 03/11/24 03/10/24 History progesterone micronized 100 mg 100 mg PO DAILY 03/11/24 03/11/24 03/11/24 History capsule propranolol 10 mg tablet 10 - 20 mg PO TID PRN anxiety 03/11/24 03/11/24 Unknown History Exam Height,Weight and Vital Signs: Height 5 ft 6 in Weight 46 kg Last Vital Signs Temp 98.6 F 03/17/24 07:30 Pulse 90 03/17/24 07:30 Resp 16 03/17/24 07:30 BP 92/67 03/17/24 07:30 Pulse Ox 98 03/17/24 07:30 O2 Del Method Room Air 03/17/24 07:30 O2 Flow Rate 2 03/14/24 09:10 Pertinent Lab Results Pertinent Lab Results: Laboratory Tests 03/11/24 03/11/24 03/11/24 14:44 17:25 17:49 WBC 6.2 RBC 4.17 L Hgb 13.9 Hct 39.4 MCV 94.5 MCH 33.3 H MCHC 35.3 H RDW 12.2 Plt Count 311 MPV 8.6 L Immature Gran % (Auto) 0.2 Neut % (Auto) 66.1 Lymph % (Auto) 21.5 B[place] % (Auto) 11.1 H Eos % (Auto) 0.3 Baso % (Auto) 0.8 Lymph # (Auto) 1.3 Benton # (Auto) 0.7 Eos # (Auto) 0.0 Baso # (Auto) 0.1 Abs Immat Gran (auto) 0.01 Absolute Neuts (auto) 4.1 Absolute Nucleated RBC 0.000 Nucleated RBC % (auto) 0.0 Sodium 137 Potassium 4.1 Chloride 102 Carbon Dioxide 25 Anion Gap 14 BUN 13 Creatinine 0.78 Estim Creat Clear Calc 63.8 Estimated GFR > 60 Random Glucose 110 Calcium 10.0 Total Bilirubin 0.4 AST 20 ALT 18 Alkaline Phosphatase 59 Total Protein 7.1 Albumin 4.8 TSH 0.77 Urine Color Yellow Urine Appearance Clear Urine pH 7.0 Ur Specific [place] 1.015 Urine Protein Negative Urine Glucose (UA) Negative Urine Ketones Negative Urine Blood Moderate (2+) H Urine Nitrite Negative Ur Leukocyte Esterase Negative Urine RBC 11-20 H Urine WBC 0-5 Ur Squamous Epith Cells 6-10 Urine Bacteria None Seen Hyaline Casts 0-2 Urine Test NEGATIVE Urine Opiates Screen Not Detected Ur Buprenorphine Scrn Not Detected Ur Oxycodone Screen Not Detected Urine Methadone Screen Not Detected Urine Fentanyl Screen Not Detected Ur Barbiturates Screen Not Detected Valproic Acid Ur Phencyclidine Scrn Not Detected Ur Amphetamines Screen Not Detected U Benzodiazepines Scrn Not Detected Urine Cocaine Screen Not Detected U Marijuana (THC) Screen Not Detected Ethyl Alcohol < 10 03/12/24 08:22 WBC RBC Hgb Hct MCV MCH MCHC RDW Plt Count MPV Immature Gran % (Auto) Neut % (Auto) Lymph % (Auto) Benton % (Auto) Eos % (Auto) Baso % (Auto) Lymph # (Auto) B[place] # (Auto) Eos # (Auto) Baso # (Auto) Abs Immat Gran (auto) Absolute Neuts (auto) Absolute Nucleated RBC Nucleated RBC % (auto) Sodium Potassium Chloride Carbon Dioxide Anion Gap BUN Creatinine Estim Creat Clear Calc Estimated GFR Random Glucose Calcium Total Bilirubin AST ALT Alkaline Phosphatase Total Protein Albumin TSH Urine Color Urine Appearance Urine pH Ur Specific [place] Urine Protein Urine Glucose (UA) Urine Ketones Urine Blood Urine Nitrite Ur Leukocyte Esterase Urine RBC Urine WBC Ur Squamous Epith Cells Urine Bacteria Hyaline Casts Urine Test Urine Opiates Screen Ur Buprenorphine Scrn Ur Oxycodone Screen Urine Methadone Screen Urine Fentanyl Screen Ur Barbiturates Screen Valproic Acid 57.9 Ur Phencyclidine Scrn Ur Amphetamines Screen U Benzodiazepines Scrn Urine Cocaine Screen U Marijuana (THC) Screen Ethyl Alcohol Airway Mallampati Class: II TM Dist: >3cm Neck ROM: Full Loose/Missing/Broken Teeth: No Heart: RRR Lungs: CTAB Assessment and Plan Assessment Anesthesia Assessment: Anesthesia Plan Discussed and Chart Reviewed Final Anesthetic Review Family History of Problems with Anesthesia: No History of Problems with Anesthesia: No NPO: Yes ASA Class: III Final Preanesthetic Review: No Changes in Pt Med Stat, Meds/Allgs Chart Reviewed, Consent Obtained/Reviewed and Anes Risks/Benef Reviewed Patient Risk: Intermediate Procedure Risk: Intermediate Assessment/Block/Sedation in SS: Assess/Block/Sedation-SS Anesthetic Plan Anesthetic Plan: GA Disposition: Standard PACU
--- NOTE | 2024-03-17 09:25 | HO.ECTPROC ---
ECT Procedure Note Diagnosis/Treatment Date of Service: 03/17/24 Diagnosis: Bipolar disorder Previous ECT Date: 03/14/24 Current Treatment Number: 2 Treatment: Series Interval Clinical Notes: The patient remains extremely anxious, initially reluctant to have the procedure but eventually agreed. Denies side effects with previous ECT. ECT done as usual right unilateral, no complications. Time: Total time managing care of this patient today ____ minutes. ECT Settings Device: THYMATRON DGx Electrode Placement: Right Unilateral Program/Pulse Width: 0.50 Energy Percent: 100 Seizure Duration By EEG (in seconds): 36 By Motor Observation (in seconds): 28 Medications Administration General Anesthetic: Etomidate (14) Muscle Relaxant: Succinylcholine (80) Ancillary Medications Analgesics: Torodol - Pre ECT Anti-emetics: Zofran - Pre ECT Airway Management Airway Management: Bag Mask Ventilation Treatment Recommendations No Changes Recommended: No change Pt Tolerated Procedure w/o Issue: Yes
[2024-03-17] MEDS: LORazepam 0.5 MG TABLET PO ×2 (10:49→15:57)
[2024-03-17] MEDS: Propranolol HCL 10 MG TABLET PO ×3 (10:50→21:52)
[2024-03-17] MEDS: proGESTerone, Micronized 100 MG CAPSULE PO (10:50)
--- NOTE | 2024-03-17 11:07 | HO.PSYCHPN ---
Subjective Subjective Date of Service: 03/17/24 Reason For Visit: bipolar mixed state akathesia not responding to tx Subjective Notes: Conditional Voluntary Interim History: Patient seen in psychiatric follow-up patient did complete ECT 2. Continued to need a lot of reassurance case reviewed her nurse practitioner who has been treating her as an outpatient, ECT from the morning reviewed. Patient continues to be obsessional anxious difficulty to reassure difficulty in making decisions repeatedly went over treatment plan with the patient Patient fearful of treatment fearful of not treatment Medication Compliance: Yes Mental Status Exam Mental Status Exam Patient Orientation: Person, Place and Situation Level of Consciousness: Awake, Restless and Alert Patient Behavior: Restless, Anxious and Distractible Mood Description: Fearful, Anxious, Flat and Nervous Affect Description: Depressed, Anxious, Labile and Apprehensive Patient Cognition Impaired: Yes Ability to Follow Directions: Fair Speech Pattern: Perseverating, Difficulty Finding Words, Rambling and Long Pauses Memory Description: Immediate Impaired and Working Impaired Diagnostics Vital Signs (24Hr): Vital Signs - 24 hr 03/16/24 15:59 03/16/24 20:00 03/16/24 22:40 Temperature 98.3 F Pulse Rate 113 H 92 83 Respiratory Rate 18 Blood Pressure 129/78 114/80 114/71 Pulse Oximetry 100 Oxygen Delivery Method Room Air Oxygen Flow Rate 03/17/24 07:30 03/17/24 09:15 03/17/24 09:35 Temperature 98.6 F 98.7 F 97.5 F Pulse Rate 90 86 82 Respiratory Rate 16 18 18 Blood Pressure 92/67 111/80 134/78 Pulse Oximetry 98 98 100 Oxygen Delivery Method Room Air Room Air Nasal Cannula Oxygen Flow Rate 2 03/17/24 09:35 03/17/24 09:40 03/17/24 09:47 Temperature 97.5 F Pulse Rate 82 99 99 Respiratory Rate 20 18 18 Blood Pressure 134/78 144/78 H 118/95 H Pulse Oximetry 100 100 100 Oxygen Delivery Method Nasal Cannula Nasal Cannula Room Air Oxygen Flow Rate 2 2 03/17/24 09:50 03/17/24 09:50 03/17/24 10:04 Temperature 97.5 F Pulse Rate 91 91 87 Respiratory Rate 18 18 18 Blood Pressure 115/74 115/74 112/68 Pulse Oximetry 100 100 100 Oxygen Delivery Method Room Air Room Air Room Air Oxygen Flow Rate 03/17/24 10:48 Temperature 98.3 F Pulse Rate 96 Respiratory Rate 14 Blood Pressure 105/80 Pulse Oximetry 97 Oxygen Delivery Method Room Air Oxygen Flow Rate BMI result Body Mass Index 16.4 Labs 03/11/24 14:44 03/11/24 14:44 Imaging Radiology Impressions: ITS Impressions Head CT 03/11/24 17:51 IMPRESSION: No acute intracranial process seen Medications Medications Current Medications Acetaminophen (Acetaminophen 325 Mg Tablet) 650 mg PO Q6H PRN PRN Reason: Headache/Pain Mild Scale (1-3) Last Admin: 03/14/24 17:35 Dose: 650 mg Al Hydroxide/Mg Hydroxide (Magnesium Hydrox/Alum Hydrox 30 Ml Oral.Susp) 30 ml PO Q6H PRN PRN Reason: Heartburn/Nausea Hydroxyzine HCl (Hydroxyzine Hcl 25 Mg Tablet) 25 mg PO Q6H PRN PRN Reason: Anxiety Last Admin: 03/15/24 15:43 Dose: 25 mg Hydroxyzine HCl (Hydroxyzine Hcl 25 Mg Tablet) 25 mg PO BEDTIME [facility] Last Admin: 03/16/24 22:40 Dose: 25 mg Lactated Ringer's (Lr) 1,000 mls @ 50 mls/hr IVCONT .Q20H [facility] Lorazepam (Lorazepam 0.5 Mg Tablet) 0.5 mg PO TID [facility] Last Admin: 03/17/24 10:49 Dose: 0.5 mg Lorazepam (Lorazepam 1 Mg Tablet) 1 mg PO TID PRN PRN Reason: severe anxiety Last Admin: 03/15/24 22:39 Dose: 1 mg Magnesium Hydroxide (Milk Of Magnesia 30 Ml Oral.Susp) 30 ml PO DAILY PRN PRN Reason: Constipation Last Admin: 03/16/24 17:31 Dose: 30 ml Pt Own (Estradiol 0. 0375 Mg/24 Hr Patch Semiweekly) 1 patch TOPICAL [facility] Last Admin: 03/15/24 09:38 Dose: 1 patch Progesterone (Progesterone, Micronized 100 Mg Capsule) 100 mg PO DAILY [facility] Last Admin: 03/17/24 10:50 Dose: 100 mg Propranolol HCl (Propranolol Hcl 10 Mg Tablet) 10 mg PO TID [facility]; Protocol Last Admin: 03/17/24 10:50 Dose: 10 mg Allergies Allergies Allergy/AdvReac Type Severity Reaction Status Date / Time No Known Allergies Allergy Verified 03/11/24 14:49 Assessment & Plan Assessment & Plan (1) Bipolar affective, mixed, severe: Status: Acute Code(s): F31.63 - Bipolar disorder, current episode mixed, severe, without psychotic features (2) Akathisia: Status: Acute Code(s): G25.71 - Drug induced akathisia (3) Panic attacks: Status: Acute Code(s): F41.0 - Panic disorder [episodic paroxysmal anxiety] Plan ECT 1. Completed patient tolerated well continue treatment series hopefully stabilize inpatient and follow-up outpatient Difficulty with working attention monitor response to Ativan dosing 03/15- ruminations and ambivalent presentation noted. but no motor symptoms. 03/16 continue tx. 03/17/2024 Continue to avoid antidepressants avoid antipsychotics Patient educated on: diagnosis, medication risk/benefits and ECT Informed Consent: further education needed Reason for continued inpatient stay Substantial Risk for: inability to function, rapid decompensation and med/psych decompensation Time Spent With Patient Time: Total time managing care of this patient today ____ minutes.
[2024-03-17] MEDS: Acetaminophen 325 MG TABLET 650 MG PO ×2 (12:30→21:58)
[2024-03-17] MEDS: bisacodyL 5 MG TABLET.DR 10 MG PO (15:57)
[2024-03-17] MEDS: LORazepam 1 MG TABLET PO (21:51)
[2024-03-17] MEDS: hydrOXYzine HCL 25 MG TABLET PO (21:51)
[2024-03-18 08:00] VITALS: BP 106/61; PULSE 108; RESP 16; TEMP 37.8; O2SAT 98
[2024-03-18] MEDS: proGESTerone, Micronized 100 MG CAPSULE PO (08:31)
[2024-03-18] MEDS: Acetaminophen 325 MG TABLET 650 MG PO (08:32)
[2024-03-18] MEDS: LORazepam 0.5 MG TABLET PO ×3 (08:32→15:56)
[2024-03-18 09:03] VITALS: BP 100/61; PULSE 108
[2024-03-18] MEDS: Propranolol HCL 10 MG TABLET PO ×2 (09:03→21:32)
--- NOTE | 2024-03-18 09:51 | HO.POSTANES ---
Post Anesthesia Evaluation Post Anesthesia Evaluation Date of Service: 03/18/24 Vital Signs: Vital Signs Temp Pulse Resp BP Pulse Ox O2 Del Method 03/18/24 09:03 108 H 100/61 03/18/24 08:00 100.0 F 108 H 16 106/61 98 Room Air 03/17/24 21:52 117 H 119/85 Anesthesia: General Mental Status: Awake Pain Control: Satisfactory Nausea/Vomiting: None Hydration: Adequate Anesthesia-Related Issues: No Anes. Related Issues
--- NOTE | 2024-03-18 14:21 | HO.PSYCHPN ---
Subjective Subjective Date of Service: 03/18/24 Reason For Visit: bipolar mixed state akathesia not responding to tx Subjective Notes: Conditional Voluntary Interim History: Patient had ECT 2. Did have some brief fever that evening does have superficial thrombophlebitis from IV no current temperature has been out in the milieu more more engaged with others was able to play cards much less akathisia Mental Status Exam Mental Status Exam Patient Orientation: Person, Place and Situation Level of Consciousness: Awake and Alert Patient Behavior: Appropriate and Anxious Behavior Comments: More engaged in the milieu when seen not overly pacing or restless Mood Description: Anxious (Much less intense) Affect Description: Calm Patient Cognition Impaired: Yes Ability to Follow Directions: Good Speech Pattern: Clear and Rambling Hallucinations: None Delusions: Not Present Judgement: Good (Improving) Judgement and Insight: Patient much calmer less labile much less intense anxiety appropriately concerns regarding whether ECT treatment will work and be effective. No gross obsessional approach avoid conflictual going back and forth in the same way when seen Diagnostics Vital Signs (24Hr): Vital Signs - 24 hr 03/17/24 15:56 03/17/24 20:00 03/17/24 21:52 Temperature 101.2 F H Pulse Rate 88 117 H 117 H Respiratory Rate 16 Blood Pressure 115/81 119/85 119/85 Pulse Oximetry 96 Oxygen Delivery Method Room Air 03/18/24 08:00 03/18/24 09:03 Temperature 100.0 F Pulse Rate 108 H 108 H Respiratory Rate 16 Blood Pressure 106/61 100/61 Pulse Oximetry 98 Oxygen Delivery Method Room Air BMI result Body Mass Index 16.4 Labs 03/18/24 18:24 03/11/24 14:44 Imaging Radiology Impressions: ITS Impressions Head CT 03/11/24 17:51 IMPRESSION: No acute intracranial process seen Medications Medications Current Medications Acetaminophen (Acetaminophen 325 Mg Tablet) 650 mg PO Q6H PRN PRN Reason: Headache/Pain Mild Scale (1-3) Last Admin: 03/18/24 08:32 Dose: 650 mg Al Hydroxide/Mg Hydroxide (Magnesium Hydrox/Alum Hydrox 30 Ml Oral.Susp) 30 ml PO Q6H PRN PRN Reason: Heartburn/Nausea Bisacodyl (Bisacodyl 5 Mg Tablet.Dr) 10 mg PO DAILY PRN PRN Reason: Constipation Last Admin: 03/17/24 15:57 Dose: 10 mg Hydroxyzine HCl (Hydroxyzine Hcl 25 Mg Tablet) 25 mg PO Q6H PRN PRN Reason: Anxiety Last Admin: 03/15/24 15:43 Dose: 25 mg Hydroxyzine HCl (Hydroxyzine Hcl 25 Mg Tablet) 25 mg PO BEDTIME [facility] Last Admin: 03/17/24 21:51 Dose: 25 mg Lorazepam (Lorazepam 1 Mg Tablet) 1 mg PO TID PRN PRN Reason: severe anxiety Last Admin: 03/15/24 22:39 Dose: 1 mg Lorazepam (Lorazepam 0.5 Mg Tablet) 0.5 mg PO BID@0830,1330 [facility] Last Admin: 03/18/24 14:04 Dose: 0.5 mg Lorazepam (Lorazepam 1 Mg Tablet) 1 mg PO BEDTIME [facility] Last Admin: 03/17/24 21:51 Dose: 1 mg Magnesium Hydroxide (Milk Of Magnesia 30 Ml Oral.Susp) 30 ml PO DAILY PRN PRN Reason: Constipation Last Admin: 03/16/24 17:31 Dose: 30 ml Pt Own (Estradiol 0. 0375 Mg/24 Hr Patch Semiweekly) 1 patch TOPICAL TuSa [facility] Last Admin: 03/18/24 12:03 Dose: 1 patch Progesterone (Progesterone, Micronized 100 Mg Capsule) 100 mg PO DAILY [facility] Last Admin: 03/18/24 08:31 Dose: 100 mg Propranolol HCl (Propranolol Hcl 10 Mg Tablet) 10 mg PO TID [facility]; Protocol Last Admin: 03/18/24 09:03 Dose: 10 mg Allergies Allergies Allergy/AdvReac Type Severity Reaction Status Date / Time No Known Allergies Allergy Verified 03/11/24 14:49 Assessment & Plan Assessment & Plan (1) Bipolar affective, mixed, severe: Status: Acute Code(s): F31.63 - Bipolar disorder, current episode mixed, severe, without psychotic features (2) Akathisia: Status: Acute Code(s): G25.71 - Drug induced akathisia (3) Panic attacks: Status: Acute Code(s): F41.0 - Panic disorder [episodic paroxysmal anxiety] Plan ECT 1. Completed patient tolerated well continue treatment series hopefully stabilize inpatient and follow-up outpatient Difficulty with working attention monitor response to Ativan dosing 03/15- ruminations and ambivalent presentation noted. but no motor symptoms. 8/4 continue tx. 03/17/2024 Continue to avoid antidepressants avoid antipsychotics 03/18/2024 Patient seen briefly seen and discussed situation patient with superficial ID thrombophlebitis no cellulitis mood seems much improved this afternoon much less intense anxiety and obsessional thinking seems less conflicted regarding ECT continue plan of care avoiding antidepressants avoiding antipsychotics at present Patient educated on: diagnosis, ECT and medical condition Reason for continued inpatient stay Substantial Risk for: inability to function and rapid decompensation Time Spent With Patient Time: Total time managing care of this patient today _30___ minutes.
[2024-03-18 16:02] VITALS: BP 137/78; PULSE 104
--- NOTE | 2024-03-18 17:13 | PM.EVENT ---
Event Note Date of Service: 03/18/24 Event Note: 53-year-old female undergoing ECT with psychiatrist requesting evaluation of firmness of vein from IV site. She recently underwent ECT yesterday and developed a fever of 101 last night and was 100.0 this morning. Temperature is now 98. She denies any pain over the vein in the left forearm. Denies any shaking chills, erythema, warmth, sore throat, congestion, cough, sinus pressure, abdominal pain, nausea, vomiting, diarrhea, dysuria, hematuria, increased urinary frequency, shortness of breath, lightheadedness, chest pain. At this time, cause her fever is most likely related to ECT treatment. However check CBC for any elevated white blood cell count and check UA. No URI symptoms. On evaluation of the left forearm, there is firmness and prominence of the vein on the radial aspect of the left forearm without any overlying erythema or warmth. This is likely consistent with a superficial thrombophlebitis from IV site. No evidence of infection or cellulitis. Doubt fever is related to this. Can use warm compresses. Rule out causes of infection as above. Otherwise, patient's fever has resolved and would presumed fever is related to ECT. Time Spent With Patient Time: Total time managing care of this patient today ____ minutes.
[2024-03-18 17:36] LABS: Appearance Urine Clear; Color Urine Yellow; Glucose Urine UA Negative (Negative); Leukocyte Esterase Urine Negative (Negative); Nitrite Urine Negative (Negative); PH 6.5 (5.0-9.0); UMIC TRIGGER UACC YES; Urine Blood Small (1+) (Negative); Urine Ketones Negative (Negative); Urine Protein Negative (Neg-Trace)
[2024-03-18 18:23] LABS: Bacteria Urine None Seen (None Seen); Hyaline Casts Urine 0-2 /LPF (0-2); Squamous Epithelial Cell Urine 0-2 /HPF (0-2); WBC Urine 0-5 /HPF (0-5)
[2024-03-18 18:30] LABS: MANUAL DIFF FLAG NO
[2024-03-18 18:48] LABS: Basophils Absolute Auto 0.1 X10*3/uL (0.0-0.2); Basophils Percent Auto 0.6 % (0-2); Eosinophils Absolute Auto 0.1 X10*3/uL (0.0-0.4); Eosinophils Percent Auto 0.8 % (0-4); Hematocrit 41.7 % (37.0-47.0); Imm Gran Abs Auto 0.02 X10*3/uL (0.00-0.03); Imm Gran Pct Auto 0.2 % (0.0-0.4); Lymphocytes Absolute Auto 1.7 X10*3/uL (1.2-4.9); Lymphocytes Percent Auto 16.5 % (20-40); Mean Corpuscular HGB Conc 33.6 g/dl (31.0-35.0); Mean Corpuscular Hemoglobin 33.5 pg (27.0-33.0); Mean Corpuscular Volume 99.8 fL (80.0-98.0); Mean Platelet Volume 8.6 fL (9.4-12.3); Monocytes Absolute Auto 1.2 X10*3/uL (0.1-1.2); Monocytes Percent Auto 11.5 % (2-11); Neutrophils Absolute Auto 7.1 x10*3/uL (2.0-8.3); Neutrophils Percent Auto 70.4 % (45-73); Platelet Count 226 X10*3/uL (160-400); Red Blood Count 4.18 X10*6/uL (4.20-5.50); Red Cell Distribution Width 12.5 % (11.0-16.0)
[2024-03-18 20:00] VITALS: BP 98/65; PULSE 85; RESP 16; TEMP 36.7; O2SAT 95
[2024-03-18 21:32] VITALS: BP 98/65; PULSE 95
[2024-03-18] MEDS: LORazepam 1 MG TABLET PO (21:32)
[2024-03-18] MEDS: hydrOXYzine HCL 25 MG TABLET PO (21:33)
[2024-03-19] VITALS (12 sets, daily range): BP systolic 90–160; BP diastolic 55–90; PULSE 83–99; RESP 16–20; TEMP 36.7–37.1; O2SAT 97–100
--- NOTE | 2024-03-19 06:57 | MHC.SHP ---
Pre-Procedural Eval Section A - 24 Hr Update-Section A only Date of Service: 03/19/24 The patient is an INPATIENT: Yes Changes since office visit: Yes Cold of Flu in the past 2 weeks, Yes New Medical Problems, Yes Changes in Medication and Yes Patient answered all questions The patient has been examined within 24 hours of the surgical procedure. The History & Physical has been completed within 30 days and I have reviewed it.: Yes Section B - Complete if H&P > 30 days Chief Complaint: bipolar mixed state akathesia not responding to tx Allergies: Allergies Allergy/AdvReac Type Severity Reaction Status Date / Time No Known Allergies Allergy Verified 03/11/24 14:49 Plan I have reviewed the history and physical and performed a pertinent physical examination on my patient. No changes have occurred unless specified. Time Spent With Patient Time: Total time managing care of this patient today ____ minutes.
--- NOTE | 2024-03-19 07:24 | HO.ECTPROC ---
ECT Procedure Note Diagnosis/Treatment Date of Service: 03/19/24 Diagnosis: Bipolar disorder Previous ECT Date: 03/17/24 Current Treatment Number: 3 Treatment: Series Interval Clinical Notes: The patient is by far less anxious, she can't remember the previous procedure, no side effects with the previous ECT. ECT done as usual, no complications. Woke up well. She looks less anxious and dysphoric, there is clinical response. Time: Total time managing care of this patient today ____ minutes. ECT Settings Device: THYMATRON DGx Electrode Placement: Right Unilateral Program/Pulse Width: 0.50 Energy Percent: 100 Seizure Duration By EEG (in seconds): 44 By Motor Observation (in seconds): 10 Medications Administration General Anesthetic: Etomidate (14) Muscle Relaxant: Succinylcholine (80) Ancillary Medications Analgesics: Torodol - Pre ECT Anti-emetics: Zofran - Pre ECT Airway Management Airway Management: Bag Mask Ventilation Treatment Recommendations No Changes Recommended: No change Pt Tolerated Procedure w/o Issue: Yes
[2024-03-19] MEDS: Propranolol HCL 10 MG TABLET PO ×2 (08:49→21:40)
[2024-03-19] MEDS: LORazepam 0.5 MG TABLET PO ×3 (08:49→17:32)
[2024-03-19] MEDS: proGESTerone, Micronized 100 MG CAPSULE PO (08:49)
[2024-03-19] MEDS: Acetaminophen 325 MG TABLET 650 MG PO ×2 (08:49→21:46)
--- NOTE | 2024-03-19 18:05 | P.PNPSI_ITS ---
Subjective Subjective Date of Service: 03/19/24 Reason For Visit: bipolar mixed state akathesia not responding to tx Subjective Notes: Conditional Voluntary Interim History: Patient is status post ECT has had some increase in anxiety ruminating needs much reassurance Medication Compliance: Yes Attending Groups: Intermittent Review of Systems Acute medical concerns: No Mental Status Exam Mental Status Exam Patient Orientation: Person, Place and Situation Level of Consciousness: Awake and Alert Patient Behavior: Appropriate and Anxious Behavior Comments: More engaged in the milieu when seen not overly pacing or restless Mood Description: Anxious (Much less intense) Affect Description: Calm Patient Cognition Impaired: Yes Ability to Follow Directions: Good Speech Pattern: Clear and Rambling Hallucinations: None Delusions: Not Present Judgement: Good (Improving) Judgement and Insight: Patient ruminating obsessional dysphoric Diagnostics Vital Signs (24Hr): Vital Signs - 24 hr 03/18/24 20:00 03/18/24 21:32 03/19/24 06:08 Temperature 98.1 F 98.7 F Pulse Rate 85 95 83 Respiratory Rate 16 16 Blood Pressure 98/65 98/65 97/57 L Pulse Oximetry 95 99 Oxygen Delivery Method Room Air Oxygen Flow Rate 03/19/24 06:28 03/19/24 07:33 03/19/24 07:38 Temperature 98.3 F 98.7 F Pulse Rate 86 88 90 Respiratory Rate 16 20 20 Blood Pressure 90/55 L 160/90 H 92/60 Pulse Oximetry 97 100 100 Oxygen Delivery Method Room Air Nasal Cannula with ETCO2 Nasal Cannula with ETCO2 Oxygen Flow Rate 3 3 03/19/24 07:43 03/19/24 07:48 03/19/24 08:03 Temperature Pulse Rate 94 90 87 Respiratory Rate 18 18 16 Blood Pressure 101/62 111/57 L 117/79 Pulse Oximetry 100 99 100 Oxygen Delivery Method Room Air Room Air Room Air Oxygen Flow Rate 03/19/24 08:20 03/19/24 08:43 03/19/24 15:02 Temperature 98.3 F 98.0 F Pulse Rate 83 92 89 Respiratory Rate 18 16 16 Blood Pressure 108/69 114/82 91/60 Pulse Oximetry 100 98 Oxygen Delivery Method Room Air Oxygen Flow Rate BMI result Body Mass Index 16.4 Labs 03/18/24 18:24 03/11/24 14:44 Labs: Laboratory Results - last 48 hr 03/18/24 03/18/24 17:10 18:24 WBC 10.0 RBC 4.18 L Hgb 14.0 Hct 41.7 MCV 99.8 H MCH 33.5 H MCHC 33.6 RDW 12.5 Plt Count 226 D MPV 8.6 L Immature Gran % (Auto) 0.2 Neut % (Auto) 70.4 Lymph % (Auto) 16.5 L [place] % (Auto) 11.5 H Eos % (Auto) 0.8 Baso % (Auto) 0.6 Lymph # (Auto) 1.7 [place] # (Auto) 1.2 Eos # (Auto) 0.1 Baso # (Auto) 0.1 Abs Immat Gran (auto) 0.02 Absolute Neuts (auto) 7.1 Absolute Nucleated RBC 0.000 Nucleated RBC % (auto) 0.0 Urine Color Yellow Urine Appearance Clear Urine pH 6.5 Ur Specific [place] 1.010 Urine Protein Negative Urine Glucose (UA) Negative Urine Ketones Negative Urine Blood Small (1+) H Urine Nitrite Negative Ur Leukocyte Esterase Negative Urine RBC 6-10 H Urine WBC 0-5 Ur Squamous Epith Cells 0-2 Urine Bacteria None Seen Hyaline Casts 0-2 Imaging Radiology Impressions: ITS Impressions Head CT 03/11/24 17:51 IMPRESSION: No acute intracranial process seen Medications Medications Current Medications Acetaminophen (Acetaminophen 325 Mg Tablet) 650 mg PO Q6H PRN PRN Reason: Headache/Pain Mild Scale (1-3) Last Admin: 03/19/24 08:49 Dose: 650 mg Al Hydroxide/Mg Hydroxide (Magnesium Hydrox/Alum Hydrox 30 Ml Oral.Susp) 30 ml PO Q6H PRN PRN Reason: Heartburn/Nausea Bisacodyl (Bisacodyl 5 Mg Tablet.Dr) 10 mg PO DAILY PRN PRN Reason: Constipation Last Admin: 03/17/24 15:57 Dose: 10 mg Hydroxyzine HCl (Hydroxyzine Hcl 25 Mg Tablet) 25 mg PO Q6H PRN PRN Reason: Anxiety Last Admin: 03/15/24 15:43 Dose: 25 mg Hydroxyzine HCl (Hydroxyzine Hcl 25 Mg Tablet) 25 mg PO BEDTIME [facility] Last Admin: 03/18/24 21:33 Dose: 25 mg Lorazepam (Lorazepam 1 Mg Tablet) 1 mg PO TID PRN PRN Reason: severe anxiety Last Admin: 03/15/24 22:39 Dose: 1 mg Lorazepam (Lorazepam 1 Mg Tablet) 1 mg PO TID [facility] Magnesium Hydroxide (Milk Of Magnesia 30 Ml Oral.Susp) 30 ml PO DAILY PRN PRN Reason: Constipation Last Admin: 03/16/24 17:31 Dose: 30 ml Pt Own (Estradiol 0. 0375 Mg/24 Hr Patch Semiweekly) 1 patch TOPICAL TuSa [facility] Last Admin: 03/18/24 12:03 Dose: 1 patch Progesterone (Progesterone, Micronized 100 Mg Capsule) 100 mg PO DAILY [facility] Last Admin: 03/19/24 08:49 Dose: 100 mg Propranolol HCl (Propranolol Hcl 10 Mg Tablet) 10 mg PO TID [facility]; Protocol Last Admin: 03/19/24 15:03 Dose: Not Given Allergies Allergies Allergy/AdvReac Type Severity Reaction Status Date / Time No Known Allergies Allergy Verified 03/11/24 14:49 Assessment & Plan Assessment & Plan (1) Bipolar affective, mixed, severe: Status: Acute Code(s): F31.63 - Bipolar disorder, current episode mixed, severe, without psychotic features (2) Akathisia: Status: Acute Code(s): G25.71 - Drug induced akathisia (3) Panic attacks: Status: Acute Code(s): F41.0 - Panic disorder [episodic paroxysmal anxiety] Plan ECT 1. Completed patient tolerated well continue treatment series hopefully stabilize inpatient and follow-up outpatient Difficulty with working attention monitor response to Ativan dosing 03/15- ruminations and ambivalent presentation noted. but no motor symptoms. 03/16 continue tx. 03/17/2024 Continue to avoid antidepressants avoid antipsychotics 03/18/2024 Patient seen briefly seen and discussed situation patient with superficial ID thrombophlebitis no cellulitis mood seems much improved this afternoon much less intense anxiety and obsessional thinking seems less conflicted regarding ECT continue plan of care avoiding antidepressants avoiding antipsychotics at present 03/19/2024 Increase lorazepam 1 mg t.i.d. continue ECT Patient educated on: medication risk/benefits and ECT Informed Consent: further education needed Reason for continued inpatient stay Substantial Risk for: inability to function, rapid decompensation and med/psych decompensation Time Spent With Patient Time: Total time managing care of this patient today ____ minutes.
[2024-03-19] MEDS: LORazepam 1 MG TABLET PO (21:40)
[2024-03-19] MEDS: hydrOXYzine HCL 25 MG TABLET PO (21:44)
[2024-03-20 07:00] VITALS: BMI 16.6
[2024-03-20 07:42] VITALS: BP 105/67; PULSE 84; RESP 14; TEMP 36; O2SAT 100
--- NOTE | 2024-03-20 08:04 | HO.POSTANES ---
Post Anesthesia Evaluation Post Anesthesia Evaluation Date of Service: 03/20/24 Vital Signs: Vital Signs Temp Pulse Resp BP Pulse Ox O2 Del Method 03/20/24 07:42 96.8 F 84 14 105/67 100 Room Air 03/19/24 21:40 99 115/76 03/19/24 21:39 99 16 115/76 Anesthesia: General Mental Status: Awake Pain Control: Satisfactory Nausea/Vomiting: None Hydration: Adequate Anesthesia-Related Issues: No Anes. Related Issues
[2024-03-20] MEDS: proGESTerone, Micronized 100 MG CAPSULE PO (08:07)
[2024-03-20] MEDS: Propranolol HCL 10 MG TABLET PO ×2 (08:07→15:17)
[2024-03-20] MEDS: LORazepam 1 MG TABLET PO ×2 (08:08→15:17)
[2024-03-20 15:13] VITALS: BP 126/78; PULSE 78; RESP 16; O2SAT 98
--- NOTE | 2024-03-20 18:28 | HO.PSYCHPN ---
Subjective Subjective Date of Service: 03/20/24 Reason For Visit: bipolar mixed state akathesia not responding to tx Subjective Notes: Conditional Voluntary Interim History: Patient seen with her . Patient's mood anxious and ruminating difficulty being in the hospital difficulty waiting see if ECT can be helpful. Continues on lorazepam avoiding other psychiatric medication some short-term memory dysfunction noted Mental Status Exam Mental Status Exam Patient Orientation: Person, Place and Situation Level of Consciousness: Awake and Alert Patient Behavior: Appropriate and Anxious Behavior Comments: More engaged in the milieu when seen not overly pacing or restless Mood Description: Anxious (Much less intense) Affect Description: Calm Patient Cognition Impaired: Yes Ability to Follow Directions: Good Speech Pattern: Clear and Rambling Hallucinations: None Delusions: Not Present Judgement: Good (Improving) Judgement and Insight: Patient ruminating obsessional dysphoric Diagnostics Vital Signs (24Hr): Vital Signs - 24 hr 03/19/24 21:39 03/19/24 21:40 03/20/24 07:42 Temperature 96.8 F Pulse Rate 99 99 84 Respiratory Rate 16 14 Blood Pressure 115/76 115/76 105/67 Pulse Oximetry 100 Oxygen Delivery Method Room Air 03/20/24 15:13 Temperature Pulse Rate 78 Respiratory Rate 16 Blood Pressure 126/78 Pulse Oximetry 98 Oxygen Delivery Method Room Air BMI result Body Mass Index 16.6 Labs 03/18/24 18:24 03/11/24 14:44 Labs: Laboratory Results - last 48 hr 03/18/24 18:24 WBC 10.0 RBC 4.18 L Hgb 14.0 Hct 41.7 MCV 99.8 H MCH 33.5 H MCHC 33.6 RDW 12.5 Plt Count 226 D MPV 8.6 L Immature Gran % (Auto) 0.2 Neut % (Auto) 70.4 Lymph % (Auto) 16.5 L [place] % (Auto) 11.5 H Eos % (Auto) 0.8 Baso % (Auto) 0.6 Lymph # (Auto) 1.7 [place] # (Auto) 1.2 Eos # (Auto) 0.1 Baso # (Auto) 0.1 Abs Immat Gran (auto) 0.02 Absolute Neuts (auto) 7.1 Absolute Nucleated RBC 0.000 Nucleated RBC % (auto) 0.0 Imaging Radiology Impressions: ITS Impressions Head CT 03/11/24 17:51 IMPRESSION: No acute intracranial process seen Medications Medications Current Medications Acetaminophen (Acetaminophen 325 Mg Tablet) 650 mg PO Q6H PRN PRN Reason: Headache/Pain Mild Scale (1-3) Last Admin: 03/19/24 21:46 Dose: 650 mg Al Hydroxide/Mg Hydroxide (Magnesium Hydrox/Alum Hydrox 30 Ml Oral.Susp) 30 ml PO Q6H PRN PRN Reason: Heartburn/Nausea Bisacodyl (Bisacodyl 5 Mg Tablet.Dr) 10 mg PO DAILY PRN PRN Reason: Constipation Last Admin: 03/17/24 15:57 Dose: 10 mg Hydroxyzine HCl (Hydroxyzine Hcl 25 Mg Tablet) 25 mg PO Q6H PRN PRN Reason: Anxiety Last Admin: 03/15/24 15:43 Dose: 25 mg Hydroxyzine HCl (Hydroxyzine Hcl 25 Mg Tablet) 25 mg PO BEDTIME [facility] Last Admin: 03/19/24 21:44 Dose: 25 mg Lorazepam (Lorazepam 1 Mg Tablet) 1 mg PO TID PRN PRN Reason: severe anxiety Last Admin: 03/15/24 22:39 Dose: 1 mg Magnesium Hydroxide (Milk Of Magnesia 30 Ml Oral.Susp) 30 ml PO DAILY PRN PRN Reason: Constipation Last Admin: 03/16/24 17:31 Dose: 30 ml Pt Own (Estradiol 0. 0375 Mg/24 Hr Patch Semiweekly) 1 patch TOPICAL [facility] Last Admin: 03/18/24 12:03 Dose: 1 patch Progesterone (Progesterone, Micronized 100 Mg Capsule) 100 mg PO DAILY [facility] Last Admin: 03/20/24 08:07 Dose: 100 mg Propranolol HCl (Propranolol Hcl 10 Mg Tablet) 10 mg PO TID [facility]; Protocol Last Admin: 03/20/24 15:17 Dose: 10 mg Allergies Allergies Allergy/AdvReac Type Severity Reaction Status Date / Time No Known Allergies Allergy Verified 03/11/24 14:49 Assessment & Plan Assessment & Plan (1) Bipolar affective, mixed, severe: Status: Acute Code(s): F31.63 - Bipolar disorder, current episode mixed, severe, without psychotic features (2) Akathisia: Status: Acute Code(s): G25.71 - Drug induced akathisia (3) Panic attacks: Status: Acute Code(s): F41.0 - Panic disorder [episodic paroxysmal anxiety] Plan ECT 1. Completed patient tolerated well continue treatment series hopefully stabilize inpatient and follow-up outpatient Difficulty with working attention monitor response to Ativan dosing 03/15- ruminations and ambivalent presentation noted. but no motor symptoms. 03/16 continue tx. 03/17/2024 Continue to avoid antidepressants avoid antipsychotics 03/18/2024 Patient seen briefly seen and discussed situation patient with superficial ID thrombophlebitis no cellulitis mood seems much improved this afternoon much less intense anxiety and obsessional thinking seems less conflicted regarding ECT continue plan of care avoiding antidepressants avoiding antipsychotics at present 03/19/2024 Increase lorazepam 1 mg t.i.d. continue ECT 03/20/24 cont ect d/c planning patient having a very difficult time being in the hospital unsure treatment will be helpful needs lot of reassurance Reason for continued inpatient stay Substantial Risk for: inability to function and rapid decompensation Time Spent With Patient Time: Total time managing care of this patient today ____ minutes.
[2024-03-20 20:00] VITALS: BP 91/62; PULSE 87; RESP 16; TEMP 36.6; O2SAT 100
[2024-03-20] MEDS: hydrOXYzine HCL 25 MG TABLET PO (20:08)
[2024-03-20] MEDS: LORazepam 0.5 MG TABLET PO (20:09)
[2024-03-20 20:46] VITALS: BP 91/62; PULSE 87
[2024-03-21] VITALS (10 sets, daily range): BP systolic 86–140; BP diastolic 54–78; PULSE 73–95; RESP 12–18; TEMP 36.2–37; O2SAT 98–100; BMI 16.4
--- NOTE | 2024-03-21 07:25 | MHC.SHP ---
Pre-Procedural Eval Section A - 24 Hr Update-Section A only Date of Service: 03/21/24 The patient is an INPATIENT: Yes Changes since office visit: Yes Changes in Medication and Yes Patient answered all questions; No Cold of Flu in the past 2 weeks and No New Medical Problems Section B - Complete if H&P > 30 days Chief Complaint: bipolar mixed state akathesia not responding to tx Allergies: Allergies Allergy/AdvReac Type Severity Reaction Status Date / Time No Known Allergies Allergy Verified 03/11/24 14:49 Plan I have reviewed the history and physical and performed a pertinent physical examination on my patient. No changes have occurred unless specified. Time Spent With Patient Time: Total time managing care of this patient today ____ minutes.
--- NOTE | 2024-03-21 07:51 | HO.ECTPROC ---
ECT Procedure Note Diagnosis/Treatment Date of Service: 03/21/24 Diagnosis: Bipolar disorder Previous ECT Date: 03/17/24 Current Treatment Number: 4 Treatment: Series Interval Clinical Notes: Pt seen in f/u quite anxious about discharging anxiety regarding staying in the hospital much less restless she is dep and anxious st memory deficits noted consider change to 0.25 Time: Total time managing care of this patient today 30____ minutes.program ECT Settings Device: THYMATRON DGx Electrode Placement: Right Unilateral Program/Pulse Width: 0.50 Energy Percent: 100 Seizure Duration By EEG (in seconds): 52 Medications Administration General Anesthetic: Etomidate (14) Muscle Relaxant: Succinylcholine (100) Ancillary Medications Analgesics: Torodol - Pre ECT Anti-emetics: Zofran - Pre ECT Airway Management Airway Management: Bag Mask Ventilation Treatment Recommendations No Changes Recommended: No change Pt Tolerated Procedure w/o Issue: Yes
--- NOTE | 2024-03-21 08:20 | HO.ANESPROP2 ---
HPI - Anesthesia Eval Consult details Narrative: 53 yo female patient for ECT PMFSH Active Problems Active Problems: All Active Problems Routine medical exam (Acute) Bipolar affective, mixed, severe (Acute) Akathisia (Acute) Panic attacks (Acute) Anxiety (Acute) Bipolar 1 disorder, depressed, severe (Acute) Cognitive and behavioral changes (Acute) Other anxiety states (Acute) Past Medical History Medical History Bipolar affective, mixed, severe Akathisia Panic attacks Anxiety No known health problems Family History Family history of problems with anesthesia: No Surgical History History of Problems with Anesthesia: No Social History Social History Household Members: Spouse Household Members Other:: Housing: House Do you presently have visiting nurse or other home services: No Alcohol intake: current Alcohol intake frequency: does not drink Alcohol type: wine Patient Tobacco Use Status: Never used Tobacco Smoked in Last 30 Days: No e-Cigarette/Vaping Use: Never Used Patient Interested in Nicotine Replacement: No Patient Given Instructions on How to Stop Smoking: No (non smoker) Second Hand Smoke Exposure: No Use of substances other than those prescribed or required for medical reasons: No Currently Displaying Signs/Symptoms of Drug Intoxication Withdrawal: No Any prior treatment program specific to substance use: No Have you been hit, kicked, punched, or otherwise hurt by someone within the past year? If so, by whom?: No Do you feel safe in your current relationship?: Yes Is there a partner from a previous relationship who is making you feel unsafe now?: No Are you made to feel afraid or neglected: No Are you DNR?: No Advance Directives: No Do you have thoughts of harming others: None Do you have a plan to hurt others: No Plan Recently lost weight without trying: Yes How much weight loss: 14-23 pounds Eating poorly because of decreased appetite: No Nutrition screen score: 4 Nutrition Risks: No Nutritional Risk Patient : No : No Poor oral hygiene: No service: No Sexual orientation: Straight/Heterosexual Meds Allergies Allergy/AdvReac Type Severity Reaction Status Date / Time No Known Allergies Allergy Verified 03/11/24 14:49 Active Medications: Current Medications Acetaminophen (Acetaminophen 325 Mg Tablet) 650 mg PO Q6H PRN PRN Reason: Headache/Pain Mild Scale (1-3) Last Admin: 03/19/24 21:46 Dose: 650 mg Al Hydroxide/Mg Hydroxide (Magnesium Hydrox/Alum Hydrox 30 Ml Oral.Susp) 30 ml PO Q6H PRN PRN Reason: Heartburn/Nausea Bisacodyl (Bisacodyl 5 Mg Tablet.Dr) 10 mg PO DAILY PRN PRN Reason: Constipation Last Admin: 03/17/24 15:57 Dose: 10 mg Hydroxyzine HCl (Hydroxyzine Hcl 25 Mg Tablet) 25 mg PO Q6H PRN PRN Reason: Anxiety Last Admin: 03/15/24 15:43 Dose: 25 mg Hydroxyzine HCl (Hydroxyzine Hcl 25 Mg Tablet) 25 mg PO BEDTIME [facility] Last Admin: 03/20/24 20:08 Dose: 25 mg Lactated Ringer's (Lr) 1,000 mls @ 50 mls/hr IVCONT .Q20H [facility] Lorazepam (Lorazepam 1 Mg Tablet) 1 mg PO TID PRN PRN Reason: severe anxiety Last Admin: 03/15/24 22:39 Dose: 1 mg Lorazepam (Lorazepam 1 Mg Tablet) 1 mg PO BID@0800,1800 [facility] Lorazepam (Lorazepam 0.5 Mg Tablet) 0.5 mg PO BEDTIME [facility] Last Admin: 03/20/24 20:09 Dose: 0.5 mg Magnesium Hydroxide (Milk Of Magnesia 30 Ml Oral.Susp) 30 ml PO DAILY PRN PRN Reason: Constipation Last Admin: 03/16/24 17:31 Dose: 30 ml Pt Own (Estradiol 0. 0375 Mg/24 Hr Patch Semiweekly) 1 patch TOPICAL [facility] Last Admin: 03/18/24 12:03 Dose: 1 patch Progesterone (Progesterone, Micronized 100 Mg Capsule) 100 mg PO DAILY [facility] Last Admin: 03/20/24 08:07 Dose: 100 mg Propranolol HCl (Propranolol Hcl 10 Mg Tablet) 10 mg PO TID [facility]; Protocol Last Admin: 03/20/24 20:46 Dose: Not Given Home Medications ?Medication ?Instructions ?Recorded ?Confirmed ?Last Taken ?Type benztropine 0.5 mg tablet 0.5 mg PO BEDTIME 03/11/24 03/11/24 03/10/24 History divalproex 250 mg tablet,delayed 500 mg PO BEDTIME 03/11/24 03/11/24 03/10/24 History release escitalopram oxalate 5 mg tablet 5 mg PO DAILY 03/11/24 03/11/24 03/11/24 History estradiol 0.0375 mg/24 hr 1 patch topical 2XW 03/11/24 03/11/24 03/11/24 History semiweekly transdermal patch lorazepam 0.5 mg tablet 0.5 mg PO BID 03/11/24 03/11/24 03/11/24 History olanzapine 10 mg tablet 10 mg PO BEDTIME 03/11/24 03/11/24 03/10/24 History progesterone micronized 100 mg 100 mg PO DAILY 03/11/24 03/11/24 03/11/24 History capsule propranolol 10 mg tablet 10 - 20 mg PO TID PRN anxiety 03/11/24 03/11/24 Unknown History Exam Height,Weight and Vital Signs: Height 5 ft 6 in Weight 46 kg Last Vital Signs Temp 97.6 F 03/21/24 06:38 Pulse 80 03/21/24 06:38 Resp 17 03/21/24 06:38 BP 101/68 03/21/24 06:38 Pulse Ox 100 03/21/24 06:38 O2 Del Method Nasal Cannula with Capnography 03/21/24 06:38 O2 Flow Rate 2 03/21/24 06:38 Pertinent Lab Results Pertinent Lab Results: Laboratory Tests 03/11/24 03/11/24 03/11/24 14:44 17:25 17:49 WBC 6.2 RBC 4.17 L Hgb 13.9 Hct 39.4 MCV 94.5 MCH 33.3 H MCHC 35.3 H RDW 12.2 Plt Count 311 MPV 8.6 L Immature Gran % (Auto) 0.2 Neut % (Auto) 66.1 Lymph % (Auto) 21.5 [place] % (Auto) 11.1 H Eos % (Auto) 0.3 Baso % (Auto) 0.8 Lymph # (Auto) 1.3 [place] # (Auto) 0.7 Eos # (Auto) 0.0 Baso # (Auto) 0.1 Abs Immat Gran (auto) 0.01 Absolute Neuts (auto) 4.1 Absolute Nucleated RBC 0.000 Nucleated RBC % (auto) 0.0 Sodium 137 Potassium 4.1 Chloride 102 Carbon Dioxide 25 Anion Gap 14 BUN 13 Creatinine 0.78 Estim Creat Clear Calc 63.8 Estimated GFR > 60 Random Glucose 110 Calcium 10.0 Total Bilirubin 0.4 AST 20 ALT 18 Alkaline Phosphatase 59 Total Protein 7.1 Albumin 4.8 TSH 0.77 Urine Color Yellow Urine Appearance Clear Urine pH 7.0 Ur Specific [place] 1.015 Urine Protein Negative Urine Glucose (UA) Negative Urine Ketones Negative Urine Blood Moderate (2+) H Urine Nitrite Negative Ur Leukocyte Esterase Negative Urine RBC 11-20 H Urine WBC 0-5 Ur Squamous Epith Cells 6-10 Urine Bacteria None Seen Hyaline Casts 0-2 Urine Test NEGATIVE Urine Opiates Screen Not Detected Ur Buprenorphine Scrn Not Detected Ur Oxycodone Screen Not Detected Urine Methadone Screen Not Detected Urine Fentanyl Screen Not Detected Ur Barbiturates Screen Not Detected Valproic Acid Ur Phencyclidine Scrn Not Detected Ur Amphetamines Screen Not Detected U Benzodiazepines Scrn Not Detected Urine Cocaine Screen Not Detected U Marijuana (THC) Screen Not Detected Ethyl Alcohol < 10 03/12/24 03/18/24 03/18/24 08:22 17:10 18:24 WBC 10.0 RBC 4.18 L Hgb 14.0 Hct 41.7 MCV 99.8 H MCH 33.5 H MCHC 33.6 RDW 12.5 Plt Count 226 D MPV 8.6 L Immature Gran % (Auto) 0.2 Neut % (Auto) 70.4 Lymph % (Auto) 16.5 L [place] % (Auto) 11.5 H Eos % (Auto) 0.8 Baso % (Auto) 0.6 Lymph # (Auto) 1.7 [place] # (Auto) 1.2 Eos # (Auto) 0.1 Baso # (Auto) 0.1 Abs Immat Gran (auto) 0.02 Absolute Neuts (auto) 7.1 Absolute Nucleated RBC 0.000 Nucleated RBC % (auto) 0.0 Sodium Potassium Chloride Carbon Dioxide Anion Gap BUN Creatinine Estim Creat Clear Calc Estimated GFR Random Glucose Calcium Total Bilirubin AST ALT Alkaline Phosphatase Total Protein Albumin TSH Urine Color Yellow Urine Appearance Clear Urine pH 6.5 Ur Specific [place] 1.010 Urine Protein Negative Urine Glucose (UA) Negative Urine Ketones Negative Urine Blood Small (1+) H Urine Nitrite Negative Ur Leukocyte Esterase Negative Urine RBC 6-10 H Urine WBC 0-5 Ur Squamous Epith Cells 0-2 Urine Bacteria None Seen Hyaline Casts 0-2 Urine Test Urine Opiates Screen Ur Buprenorphine Scrn Ur Oxycodone Screen Urine Methadone Screen Urine Fentanyl Screen Ur Barbiturates Screen Valproic Acid 57.9 Ur Phencyclidine Scrn Ur Amphetamines Screen U Benzodiazepines Scrn Urine Cocaine Screen U Marijuana (THC) Screen Ethyl Alcohol Airway Mallampati Class: II TM Dist: >3cm Neck ROM: Full Loose/Missing/Broken Teeth: No Heart: RRR Lungs: CTAB Assessment and Plan Assessment Anesthesia Assessment: Anesthesia Plan Discussed and Chart Reviewed Final Anesthetic Review Family History of Problems with Anesthesia: No History of Problems with Anesthesia: No NPO: Yes ASA Class: III Final Preanesthetic Review: No Changes in Pt Med Stat, Meds/Allgs Chart Reviewed, Consent Obtained/Reviewed and Anes Risks/Benef Reviewed Patient Risk: Intermediate Procedure Risk: Intermediate Assessment/Block/Sedation in SS: Assess/Block/Sedation-SS Anesthetic Plan Anesthetic Plan: GA Disposition: Standard PACU
[2024-03-21] MEDS: Propranolol HCL 10 MG TABLET PO ×3 (08:53→21:08)
[2024-03-21] MEDS: proGESTerone, Micronized 100 MG CAPSULE PO (08:54)
[2024-03-21] MEDS: LORazepam 1 MG TABLET PO (08:54)
[2024-03-21] MEDS: Acetaminophen 325 MG TABLET 650 MG PO (08:59)
--- NOTE | 2024-03-21 13:50 | HO.PSYCHPN ---
Subjective Subjective Date of Service: 03/21/24 Reason For Visit: bipolar mixed state akathesia not responding to tx Subjective Notes: Conditional Voluntary Interim History: The patient seen psychiatric follow-up with her . Patient clearly less agitated less anxious but still tends to ruminate intense look on the negative side of things ECT 4. Completed avoid antidepressants and antipsychotics at present Medication Compliance: Yes Mental Status Exam Mental Status Exam Patient Appearance: Appropriate Patient Orientation: Person, Place and Situation Level of Consciousness: Awake and Alert Patient Behavior: Appropriate and Anxious Behavior Comments: More engaged in the milieu when seen not overly pacing or restless Mood Description: Anxious (Much less intense) Affect Description: Calm Patient Cognition Impaired: Yes Ability to Follow Directions: Good Speech Pattern: Clear and Rambling Hallucinations: None Delusions: Not Present Judgement: Good (Improving) Judgement and Insight: Patient ruminating obsessional dysphoric Diagnostics Vital Signs (24Hr): Vital Signs - 24 hr 03/20/24 15:13 03/20/24 20:00 03/20/24 20:46 Temperature 97.8 F Pulse Rate 78 87 87 Respiratory Rate 16 16 Blood Pressure 126/78 91/62 91/62 Pulse Oximetry 98 100 Oxygen Delivery Method Room Air Room Air Oxygen Flow Rate 03/21/24 06:03 03/21/24 06:38 03/21/24 07:50 Temperature 97.6 F 97.6 F 98.6 F Pulse Rate 75 80 73 Respiratory Rate 16 17 12 Blood Pressure 86/54 L 101/68 140/78 H Pulse Oximetry 100 100 100 Oxygen Delivery Method Room Air Nasal Cannula with ETCO2 Oxygen Flow Rate 2 03/21/24 07:55 03/21/24 08:00 03/21/24 08:05 Temperature Pulse Rate 80 79 84 Respiratory Rate 14 15 15 Blood Pressure 101/70 97/70 107/64 Pulse Oximetry 100 100 100 Oxygen Delivery Method Nasal Cannula with ETCO2 Nasal Cannula with ETCO2 Nasal Cannula with ETCO2 Oxygen Flow Rate 2 2 2 03/21/24 08:27 03/21/24 08:34 03/21/24 08:34 Temperature 97.2 F 97.2 F 97.2 F Pulse Rate 80 82 82 Respiratory Rate 18 16 16 Blood Pressure 102/65 108/68 108/68 Pulse Oximetry 100 99 99 Oxygen Delivery Method Room Air Room Air Oxygen Flow Rate BMI result Body Mass Index 16.4 Labs 03/18/24 18:24 07/30/24 14:44 Imaging Radiology Impressions: ITS Impressions Head CT 03/11/24 17:51 IMPRESSION: No acute intracranial process seen Medications Medications Current Medications Acetaminophen (Acetaminophen 325 Mg Tablet) 650 mg PO Q6H PRN PRN Reason: Headache/Pain Mild Scale (1-3) Last Admin: 03/21/24 08:59 Dose: 650 mg Acetaminophen (Acetaminophen 325 Mg Tablet) 650 mg PO ONCE PRN PRN Reason: Pain, Mild (Pain Scale 1-3) Stop: 03/21/24 14:19 Al Hydroxide/Mg Hydroxide (Magnesium Hydrox/Alum Hydrox 30 Ml Oral.Susp) 30 ml PO Q6H PRN PRN Reason: Heartburn/Nausea Bisacodyl (Bisacodyl 5 Mg Tablet.Dr) 10 mg PO DAILY PRN PRN Reason: Constipation Last Admin: 03/17/24 15:57 Dose: 10 mg Hydroxyzine HCl (Hydroxyzine Hcl 25 Mg Tablet) 25 mg PO Q6H PRN PRN Reason: Anxiety Last Admin: 03/15/24 15:43 Dose: 25 mg Hydroxyzine HCl (Hydroxyzine Hcl 25 Mg Tablet) 25 mg PO BEDTIME [facility] Last Admin: 03/20/24 20:08 Dose: 25 mg Lactated Ringer's (Lr) 1,000 mls @ 50 mls/hr IVCONT .Q20H [facility] Lorazepam (Lorazepam 1 Mg Tablet) 1 mg PO TID PRN PRN Reason: severe anxiety Last Admin: 03/15/24 22:39 Dose: 1 mg Lorazepam (Lorazepam 1 Mg Tablet) 1 mg PO BID@0800,1800 [facility] Last Admin: 03/21/24 08:54 Dose: 1 mg Lorazepam (Lorazepam 0.5 Mg Tablet) 0.5 mg PO BEDTIME [facility] Last Admin: 03/20/24 20:09 Dose: 0.5 mg Magnesium Hydroxide (Milk Of Magnesia 30 Ml Oral.Susp) 30 ml PO DAILY PRN PRN Reason: Constipation Last Admin: 03/16/24 17:31 Dose: 30 ml Pt Own (Estradiol 0. 0375 Mg/24 Hr Patch Semiweekly) 1 patch TOPICAL [facility] Last Admin: 03/18/24 12:03 Dose: 1 patch Ondansetron HCl (Ondansetron Hcl 4 Mg/2 Ml Vial) 4 mg IVPUSH ONCE PRN PRN Reason: Nausea and Vomiting Stop: 03/21/24 14:19 Progesterone (Progesterone, Micronized 100 Mg Capsule) 100 mg PO DAILY [facility] Last Admin: 03/21/24 08:54 Dose: 100 mg Propranolol HCl (Propranolol Hcl 10 Mg Tablet) 10 mg PO TID [facility]; Protocol Last Admin: 03/21/24 08:53 Dose: 10 mg Allergies Allergies Allergy/AdvReac Type Severity Reaction Status Date / Time No Known Allergies Allergy Verified 03/11/24 14:49 Assessment & Plan Assessment & Plan (1) Bipolar affective, mixed, severe: Status: Acute Code(s): F31.63 - Bipolar disorder, current episode mixed, severe, without psychotic features (2) Akathisia: Status: Acute Code(s): G25.71 - Drug induced akathisia (3) Panic attacks: Status: Acute Code(s): F41.0 - Panic disorder [episodic paroxysmal anxiety] Plan ECT 1. Completed patient tolerated well continue treatment series hopefully stabilize inpatient and follow-up outpatient Difficulty with working attention monitor response to Ativan dosing 03/15- ruminations and ambivalent presentation noted. but no motor symptoms. 03/16 continue tx. 03/17/2024 Continue to avoid antidepressants avoid antipsychotics 03/18/2024 Patient seen briefly seen and discussed situation patient with superficial ID thrombophlebitis no cellulitis mood seems much improved this afternoon much less intense anxiety and obsessional thinking seems less conflicted regarding ECT continue plan of care avoiding antidepressants avoiding antipsychotics at present 03/19/2024 Increase lorazepam 1 mg t.i.d. continue ECT 03/20/24 cont ect d/c planning patient having a very difficult time being in the hospital unsure treatment will be helpful needs lot of reassurance 03/21/2024 Continue lorazepam continue ECT tentative discharge 03/24 Guardian/Caregiver educated on: diagnosis and medication risk/benefits Reason for continued inpatient stay Substantial Risk for: inability to function and rapid decompensation Time Spent With Patient Time: Total time managing care of this patient today 30____ minutes.
[2024-03-21] MEDS: LORazepam 0.5 MG TABLET PO (21:08)
[2024-03-21] MEDS: hydrOXYzine HCL 25 MG TABLET PO (21:08)
[2024-03-22 07:15] VITALS: BP 99/68; PULSE 84; RESP 14; TEMP 36.9; O2SAT 100
[2024-03-22 08:48] VITALS: BP 102/66; PULSE 82
[2024-03-22] MEDS: LORazepam 1 MG TABLET PO ×2 (08:53→17:19)
[2024-03-22] MEDS: Propranolol HCL 10 MG TABLET PO ×3 (08:53→20:56)
[2024-03-22] MEDS: proGESTerone, Micronized 100 MG CAPSULE PO (08:53)
--- NOTE | 2024-03-22 10:30 | P.PNPSI_ITS ---
Subjective Subjective Date of Service: 03/22/24 Reason For Visit: bipolar mixed state akathesia not responding to tx Interim History: The patient seen psychiatric follow-up. Remains ambivalent and anxious but reportedly improved compared to [employer]. Patient clearly less agitated less anxious but still tends to ruminate. Needs a lot of reassurance. More visible in the milieu. Some participation. Denies SI. Review of Systems Review of Systems General: No fevers, malaise, unintentional weight loss HEENT: No blurred vision, diplopia. No sore throat, nasal congestion, rhinorrhea, sinus pain, ear pain Cardiovascular: No chest pain, palpitations, or leg edema Respiratory: No shortness of breath, wheezing, cough GI: No abdominal pain, nausea, vomiting, diarrhea, constipation, melena, hematochezia : No dysuria, hematuria, increased urinary frequency, decreased urinary output MSK: No myalgia, back pain Neuro: No headaches, weakness, paresthesias Skin: No rashes or lesions Yes all other systems are reviewed and are negative Constitutional: Denies fatigue and Denies fever(s) Cardiovascular: Denies chest pain at rest and Denies dyspnea Respiratory: Denies dyspnea Reports behavioral changes Psychiatric: Reports anxiety, Reports behavioral changes and Reports depression Endocrine: Denies fatigue Mental Status Exam Mental Status Exam Patient Appearance: Appropriate Patient Orientation: Person, Place and Situation Level of Consciousness: Awake and Alert Patient Behavior: Appropriate and Anxious Behavior Comments: More engaged in the milieu when seen not overly pacing or restless Mood Description: Anxious (Much less intense) Affect Description: Calm Patient Cognition Impaired: Yes Ability to Follow Directions: Good Speech Pattern: Clear and Rambling Memory Description: Immediate Impaired and Working Impaired Diagnostics Vital Signs (24Hr): Vital Signs - 24 hr 03/21/24 15:06 03/21/24 21:00 03/22/24 07:15 Temperature 97.3 F 98.4 F Pulse Rate 95 87 84 Respiratory Rate 16 14 Blood Pressure 98/64 111/72 99/68 Pulse Oximetry 98 100 Oxygen Delivery Method Room Air Room Air 03/22/24 08:48 Temperature Pulse Rate 82 Respiratory Rate Blood Pressure 102/66 Pulse Oximetry Oxygen Delivery Method BMI result Body Mass Index 16.4 Labs 03/18/24 18:24 03/11/24 14:44 Imaging Radiology Impressions: ITS Impressions Head CT 03/11/24 17:51 IMPRESSION: No acute intracranial process seen Medications Medications Current Medications Acetaminophen (Acetaminophen 325 Mg Tablet) 650 mg PO Q6H PRN PRN Reason: Headache/Pain Mild Scale (1-3) Last Admin: 03/21/24 08:59 Dose: 650 mg Al Hydroxide/Mg Hydroxide (Magnesium Hydrox/Alum Hydrox 30 Ml Oral.Susp) 30 ml PO Q6H PRN PRN Reason: Heartburn/Nausea Bisacodyl (Bisacodyl 5 Mg Tablet.Dr) 10 mg PO DAILY PRN PRN Reason: Constipation Last Admin: 03/17/24 15:57 Dose: 10 mg Hydroxyzine HCl (Hydroxyzine Hcl 25 Mg Tablet) 25 mg PO Q6H PRN PRN Reason: Anxiety Last Admin: 03/15/24 15:43 Dose: 25 mg Hydroxyzine HCl (Hydroxyzine Hcl 25 Mg Tablet) 25 mg PO BEDTIME [facility] Last Admin: 03/21/24 21:08 Dose: 25 mg Lactated Ringer's (Lr) 1,000 mls @ 50 mls/hr IVCONT .Q20H [facility] Last Admin: 03/22/24 06:43 Dose: Not Given Lorazepam (Lorazepam 1 Mg Tablet) 1 mg PO TID PRN PRN Reason: severe anxiety Last Admin: 03/15/24 22:39 Dose: 1 mg Lorazepam (Lorazepam 1 Mg Tablet) 1 mg PO BID@0800,1800 [facility] Last Admin: 03/22/24 08:53 Dose: 1 mg Lorazepam (Lorazepam 0.5 Mg Tablet) 0.5 mg PO BEDTIME [facility] Last Admin: 03/21/24 21:08 Dose: 0.5 mg Magnesium Hydroxide (Milk Of Magnesia 30 Ml Oral.Susp) 30 ml PO DAILY PRN PRN Reason: Constipation Last Admin: 03/16/24 17:31 Dose: 30 ml Pt Own (Estradiol 0. 0375 Mg/24 Hr Patch Semiweekly) 1 patch TOPICAL TuSa [facility] Last Admin: 03/18/24 12:03 Dose: 1 patch Progesterone (Progesterone, Micronized 100 Mg Capsule) 100 mg PO DAILY [facility] Last Admin: 03/22/24 08:53 Dose: 100 mg Propranolol HCl (Propranolol Hcl 10 Mg Tablet) 10 mg PO TID [facility]; Protocol Last Admin: 03/22/24 08:53 Dose: 10 mg Allergies Allergies Allergy/AdvReac Type Severity Reaction Status Date / Time No Known Allergies Allergy Verified 03/11/24 14:49 Assessment & Plan Assessment & Plan (1) Bipolar affective, mixed, severe: Status: Acute Code(s): F31.63 - Bipolar disorder, current episode mixed, severe, without psychotic features (2) Akathisia: Status: Acute Code(s): G25.71 - Drug induced akathisia (3) Panic attacks: Status: Acute Code(s): F41.0 - Panic disorder [episodic paroxysmal anxiety] Plan ECT 1. Completed patient tolerated well continue treatment series hopefully stabilize inpatient and follow-up outpatient Difficulty with working attention monitor response to Ativan dosing 03/15- ruminations and ambivalent presentation noted. but no motor symptoms. 03/16 continue tx. 03/17/2024 Continue to avoid antidepressants avoid antipsychotics 03/18/2024 Patient seen briefly seen and discussed situation patient with superficial ID thrombophlebitis no cellulitis mood seems much improved this afternoon much less intense anxiety and obsessional thinking seems less conflicted regarding ECT continue plan of care avoiding antidepressants avoiding antipsychotics at present 03/19/2024 Increase lorazepam 1 mg t.i.d. continue ECT 03/20/24 cont ect d/c planning patient having a very difficult time being in the hospital unsure treatment will be helpful needs lot of reassurance 03/21/2024 Continue lorazepam continue ECT tentative discharge 03/24 03/22: continue current management and treatment plan. Reason for continued inpatient stay Substantial Risk for: harm to self, inability to function and rapid decompensation Time Spent With Patient Time: Total time managing care of this patient today ____ minutes.
[2024-03-22 15:08] VITALS: BP 110/72; PULSE 81
[2024-03-22 20:54] VITALS: BP 109/68; PULSE 83; RESP 16; TEMP 36.9; O2SAT 100
[2024-03-22] MEDS: LORazepam 0.5 MG TABLET PO (20:55)
[2024-03-22] MEDS: hydrOXYzine HCL 25 MG TABLET PO (20:56)
[2024-03-22] MEDS: Milk of Magnesia 30 ML ORAL.SUSP PO (20:57)
[2024-03-23 07:45] VITALS: BP 98/64; PULSE 91; RESP 14; TEMP 36.8; O2SAT 100
[2024-03-23 08:26] VITALS: BP 98/64; PULSE 100
[2024-03-23] MEDS: Propranolol HCL 10 MG TABLET PO ×2 (08:26→20:32)
[2024-03-23] MEDS: proGESTerone, Micronized 100 MG CAPSULE PO (08:26)
[2024-03-23] MEDS: LORazepam 1 MG TABLET PO ×2 (08:27→19:05)
--- NOTE | 2024-03-23 10:20 | P.PNPSI_ITS ---
Subjective Subjective Date of Service: 03/23/24 Reason For Visit: bipolar mixed state akathesia not responding to tx Interim History: Improved related to admission but continues with indecisiveness, ambivalence and anxiety. RN implementing a more directive approach as patient has difficulty with choices. Tolerating ECT well. Treatment scheduled for tomorrow. Patient clearly less agitated less anxious but still tends to ruminate. Needs a lot of reassurance. More visible in the milieu. Some participation. Denies SI. Review of Systems Review of Systems General: No fevers, malaise, unintentional weight loss HEENT: No blurred vision, diplopia. No sore throat, nasal congestion, rhinorrhea, sinus pain, ear pain Cardiovascular: No chest pain, palpitations, or leg edema Respiratory: No shortness of breath, wheezing, cough GI: No abdominal pain, nausea, vomiting, diarrhea, constipation, melena, hematochezia : No dysuria, hematuria, increased urinary frequency, decreased urinary output MSK: No myalgia, back pain Neuro: No headaches, weakness, paresthesias Skin: No rashes or lesions Yes all other systems are reviewed and are negative Constitutional: Denies fatigue and Denies fever(s) Cardiovascular: Denies chest pain at rest and Denies dyspnea Respiratory: Denies dyspnea Reports behavioral changes Psychiatric: Reports anxiety, Reports behavioral changes and Reports depression Endocrine: Denies fatigue Mental Status Exam Mental Status Exam Patient Appearance: Appropriate Patient Orientation: Person, Place and Situation Level of Consciousness: Awake and Alert Patient Behavior: Appropriate and Anxious Behavior Comments: More engaged in the milieu when seen not overly pacing or restless Mood Description: Anxious (Much less intense) Affect Description: Calm Patient Cognition Impaired: Yes Ability to Follow Directions: Good Speech Pattern: Clear and Rambling Memory Description: Immediate Impaired and Working Impaired Diagnostics Vital Signs (24Hr): Vital Signs - 24 hr 03/22/24 15:08 03/22/24 20:54 03/23/24 07:45 Temperature 98.5 F 98.2 F Pulse Rate 81 83 91 Respiratory Rate 16 14 Blood Pressure 110/72 109/68 98/64 Pulse Oximetry 100 100 Oxygen Delivery Method Room Air Room Air 03/23/24 08:26 Temperature Pulse Rate 100 Respiratory Rate Blood Pressure 98/64 Pulse Oximetry Oxygen Delivery Method BMI result Body Mass Index 16.4 Labs 03/18/24 18:24 03/11/24 14:44 Imaging Radiology Impressions: ITS Impressions Head CT 03/11/24 17:51 IMPRESSION: No acute intracranial process seen Medications Medications Current Medications Acetaminophen (Acetaminophen 325 Mg Tablet) 650 mg PO Q6H PRN PRN Reason: Headache/Pain Mild Scale (1-3) Last Admin: 03/21/24 08:59 Dose: 650 mg Al Hydroxide/Mg Hydroxide (Magnesium Hydrox/Alum Hydrox 30 Ml Oral.Susp) 30 ml PO Q6H PRN PRN Reason: Heartburn/Nausea Bisacodyl (Bisacodyl 5 Mg Tablet.Dr) 10 mg PO DAILY PRN PRN Reason: Constipation Last Admin: 03/17/24 15:57 Dose: 10 mg Hydroxyzine HCl (Hydroxyzine Hcl 25 Mg Tablet) 25 mg PO Q6H PRN PRN Reason: Anxiety Last Admin: 03/15/24 15:43 Dose: 25 mg Hydroxyzine HCl (Hydroxyzine Hcl 25 Mg Tablet) 25 mg PO BEDTIME [facility] Last Admin: 03/22/24 20:56 Dose: 25 mg Lorazepam (Lorazepam 1 Mg Tablet) 1 mg PO TID PRN PRN Reason: severe anxiety Last Admin: 03/15/24 22:39 Dose: 1 mg Lorazepam (Lorazepam 1 Mg Tablet) 1 mg PO BID@0800,1800 [facility] Last Admin: 03/23/24 08:27 Dose: 1 mg Lorazepam (Lorazepam 0.5 Mg Tablet) 0.5 mg PO BEDTIME [facility] Last Admin: 03/22/24 20:55 Dose: 0.5 mg Magnesium Hydroxide (Milk Of Magnesia 30 Ml Oral.Susp) 30 ml PO DAILY PRN PRN Reason: Constipation Last Admin: 03/22/24 20:57 Dose: 30 ml Pt Own (Estradiol 0. 0375 Mg/24 Hr Patch Semiweekly) 1 patch TOPICAL TuSa [facility] Last Admin: 03/22/24 10:31 Dose: 1 patch Progesterone (Progesterone, Micronized 100 Mg Capsule) 100 mg PO DAILY [facility] Last Admin: 03/23/24 08:26 Dose: 100 mg Propranolol HCl (Propranolol Hcl 10 Mg Tablet) 10 mg PO TID [facility]; Protocol Last Admin: 03/23/24 08:26 Dose: 10 mg Allergies Allergies Allergy/AdvReac Type Severity Reaction Status Date / Time No Known Allergies Allergy Verified 03/11/24 14:49 Assessment & Plan Assessment & Plan (1) Bipolar affective, mixed, severe: Status: Acute Code(s): F31.63 - Bipolar disorder, current episode mixed, severe, without psychotic features (2) Akathisia: Status: Acute Code(s): G25.71 - Drug induced akathisia (3) Panic attacks: Status: Acute Code(s): F41.0 - Panic disorder [episodic paroxysmal anxiety] Plan ECT 1. Completed patient tolerated well continue treatment series hopefully stabilize inpatient and follow-up outpatient Difficulty with working attention monitor response to Ativan dosing 03/15- ruminations and ambivalent presentation noted. but no motor symptoms. 03/16 continue tx. 03/17/2024 Continue to avoid antidepressants avoid antipsychotics 03/18/2024 Patient seen briefly seen and discussed situation patient with superficial ID thrombophlebitis no cellulitis mood seems much improved this afternoon much less intense anxiety and obsessional thinking seems less conflicted regarding ECT continue plan of care avoiding antidepressants avoiding antipsychotics at present 03/19/2024 Increase lorazepam 1 mg t.i.d. continue ECT 03/20/24 cont ect d/c planning patient having a very difficult time being in the hospital unsure treatment will be helpful needs lot of reassurance 03/21/2024 Continue lorazepam continue ECT tentative discharge 03/24 03/22: continue current management and treatment plan. 03/23: continue current management and treatment plan. Reason for continued inpatient stay Substantial Risk for: inability to function and rapid decompensation Time Spent With Patient Time: Total time managing care of this patient today ____ minutes.
[2024-03-23 15:37] VITALS: BP 84/54; PULSE 91
[2024-03-23 20:00] VITALS: BP 119/70; PULSE 85; RESP 16; TEMP 36.9; O2SAT 100
[2024-03-23 20:32] VITALS: BP 119/70; PULSE 100
[2024-03-23] MEDS: hydrOXYzine HCL 25 MG TABLET PO (20:32)
[2024-03-23] MEDS: LORazepam 0.5 MG TABLET PO (20:32)
[2024-03-24] VITALS (12 sets, daily range): BP systolic 88–106; BP diastolic 59–75; PULSE 75–95; RESP 12–18; TEMP 36.8–36.9; O2SAT 99–100
--- NOTE | 2024-03-24 06:43 | HO.ANESPROP2 ---
[facility] Active Problems Active Problems: All Active Problems Routine medical exam (Acute) Bipolar affective, mixed, severe (Acute) Akathisia (Acute) Panic attacks (Acute) Anxiety (Acute) Bipolar 1 disorder, depressed, severe (Acute) Cognitive and behavioral changes (Acute) Other anxiety states (Acute) Past Medical History Medical History Bipolar affective, mixed, severe Akathisia Panic attacks Anxiety No known health problems Family History Family history of problems with anesthesia: No Surgical History History of Problems with Anesthesia: No Social History Social History Household Members: Spouse Household Members Other:: Housing: House Do you presently have visiting nurse or other home services: No Alcohol intake: current Alcohol intake frequency: does not drink Alcohol type: wine Patient Tobacco Use Status: Never used Tobacco Smoked in Last 30 Days: No e-Cigarette/Vaping Use: Never Used Patient Interested in Nicotine Replacement: No Patient Given Instructions on How to Stop Smoking: No (non smoker) Second Hand Smoke Exposure: No Use of substances other than those prescribed or required for medical reasons: No Currently Displaying Signs/Symptoms of Drug Intoxication Withdrawal: No Any prior treatment program specific to substance use: No Have you been hit, kicked, punched, or otherwise hurt by someone within the past year? If so, by whom?: No Do you feel safe in your current relationship?: Yes Is there a partner from a previous relationship who is making you feel unsafe now?: No Are you made to feel afraid or neglected: No Are you DNR?: No Advance Directives: No Do you have thoughts of harming others: None Do you have a plan to hurt others: No Plan Recently lost weight without trying: Yes How much weight loss: 14-23 pounds Eating poorly because of decreased appetite: No Nutrition screen score: 4 Nutrition Risks: No Nutritional Risk Patient : No : No Poor oral hygiene: No service: No Sexual orientation: Straight/Heterosexual Meds Allergies Allergy/AdvReac Type Severity Reaction Status Date / Time No Known Allergies Allergy Verified 03/11/24 14:49 Active Medications: Current Medications Acetaminophen (Acetaminophen 325 Mg Tablet) 650 mg PO Q6H PRN PRN Reason: Headache/Pain Mild Scale (1-3) Last Admin: 03/21/24 08:59 Dose: 650 mg Al Hydroxide/Mg Hydroxide (Magnesium Hydrox/Alum Hydrox 30 Ml Oral.Susp) 30 ml PO Q6H PRN PRN Reason: Heartburn/Nausea Bisacodyl (Bisacodyl 5 Mg Tablet.Dr) 10 mg PO DAILY PRN PRN Reason: Constipation Last Admin: 03/17/24 15:57 Dose: 10 mg Hydroxyzine HCl (Hydroxyzine Hcl 25 Mg Tablet) 25 mg PO Q6H PRN PRN Reason: Anxiety Last Admin: 03/15/24 15:43 Dose: 25 mg Hydroxyzine HCl (Hydroxyzine Hcl 25 Mg Tablet) 25 mg PO BEDTIME [facility] Last Admin: 03/23/24 20:32 Dose: 25 mg Lactated Ringer's (Lr) 1,000 mls @ 50 mls/hr IVCONT .Q20H [facility] Lorazepam (Lorazepam 1 Mg Tablet) 1 mg PO TID PRN PRN Reason: severe anxiety Last Admin: 03/15/24 22:39 Dose: 1 mg Lorazepam (Lorazepam 1 Mg Tablet) 1 mg PO BID@0800,1800 [facility] Last Admin: 03/23/24 19:05 Dose: 1 mg Lorazepam (Lorazepam 0.5 Mg Tablet) 0.5 mg PO BEDTIME [facility] Last Admin: 03/23/24 20:32 Dose: 0.5 mg Magnesium Hydroxide (Milk Of Magnesia 30 Ml Oral.Susp) 30 ml PO DAILY PRN PRN Reason: Constipation Last Admin: 03/22/24 20:57 Dose: 30 ml Pt Own (Estradiol 0. 0375 Mg/24 Hr Patch Semiweekly) 1 patch TOPICAL TuSa [facility] Last Admin: 03/22/24 10:31 Dose: 1 patch Progesterone (Progesterone, Micronized 100 Mg Capsule) 100 mg PO DAILY [facility] Last Admin: 03/23/24 08:26 Dose: 100 mg Propranolol HCl (Propranolol Hcl 10 Mg Tablet) 10 mg PO TID [facility]; Protocol Last Admin: 03/23/24 20:32 Dose: 10 mg Home Medications ?Medication ?Instructions ?Recorded ?Confirmed ?Last Taken ?Type benztropine 0.5 mg tablet 0.5 mg PO BEDTIME 03/11/24 03/11/24 03/10/24 History divalproex 250 mg tablet,delayed 500 mg PO BEDTIME 03/11/24 03/11/24 03/10/24 History release escitalopram oxalate 5 mg tablet 5 mg PO DAILY 03/11/24 03/11/24 03/11/24 History estradiol 0.0375 mg/24 hr 1 patch topical 2XW 03/11/24 03/11/24 03/11/24 History semiweekly transdermal patch lorazepam 0.5 mg tablet 0.5 mg PO BID 03/11/24 03/11/24 03/11/24 History olanzapine 10 mg tablet 10 mg PO BEDTIME 03/11/24 03/11/24 03/10/24 History progesterone micronized 100 mg 100 mg PO DAILY 03/11/24 03/11/24 03/11/24 History capsule propranolol 10 mg tablet 10 - 20 mg PO TID PRN anxiety 03/11/24 03/11/24 Unknown History Exam Height,Weight and Vital Signs: Height 5 ft 6 in Weight 46 kg Last Vital Signs Temp 98.2 F 03/24/24 06:40 Pulse 75 03/24/24 06:40 Resp 16 03/24/24 06:40 BP 92/59 L 03/24/24 06:40 Pulse Ox 100 03/24/24 06:40 O2 Del Method Room Air 03/24/24 06:40 O2 Flow Rate 2 03/21/24 08:05 Pertinent Lab Results Pertinent Lab Results: Laboratory Tests 03/11/24 03/11/24 03/11/24 14:44 17:25 17:49 WBC 6.2 RBC 4.17 L Hgb 13.9 Hct 39.4 MCV 94.5 MCH 33.3 H MCHC 35.3 H RDW 12.2 Plt Count 311 MPV 8.6 L Immature Gran % (Auto) 0.2 Neut % (Auto) 66.1 Lymph % (Auto) 21.5 [place] % (Auto) 11.1 H Eos % (Auto) 0.3 Baso % (Auto) 0.8 Lymph # (Auto) 1.3 [place] # (Auto) 0.7 Eos # (Auto) 0.0 Baso # (Auto) 0.1 Abs Immat Gran (auto) 0.01 Absolute Neuts (auto) 4.1 Absolute Nucleated RBC 0.000 Nucleated RBC % (auto) 0.0 Sodium 137 Potassium 4.1 Chloride 102 Carbon Dioxide 25 Anion Gap 14 BUN 13 Creatinine 0.78 Estim Creat Clear Calc 63.8 Estimated GFR > 60 Random Glucose 110 Calcium 10.0 Total Bilirubin 0.4 AST 20 ALT 18 Alkaline Phosphatase 59 Total Protein 7.1 Albumin 4.8 TSH 0.77 Urine Color Yellow Urine Appearance Clear Urine pH 7.0 Ur Specific [place] 1.015 Urine Protein Negative Urine Glucose (UA) Negative Urine Ketones Negative Urine Blood Moderate (2+) H Urine Nitrite Negative Ur Leukocyte Esterase Negative Urine RBC 11-20 H Urine WBC 0-5 Ur Squamous Epith Cells 6-10 Urine Bacteria None Seen Hyaline Casts 0-2 Urine Test NEGATIVE Urine Opiates Screen Not Detected Ur Buprenorphine Scrn Not Detected Ur Oxycodone Screen Not Detected Urine Methadone Screen Not Detected Urine Fentanyl Screen Not Detected Ur Barbiturates Screen Not Detected Valproic Acid Ur Phencyclidine Scrn Not Detected Ur Amphetamines Screen Not Detected U Benzodiazepines Scrn Not Detected Urine Cocaine Screen Not Detected U Marijuana (THC) Screen Not Detected Ethyl Alcohol < 10 03/12/24 03/18/24 03/18/24 08:22 17:10 18:24 WBC 10.0 RBC 4.18 L Hgb 14.0 Hct 41.7 MCV 99.8 H MCH 33.5 H MCHC 33.6 RDW 12.5 Plt Count 226 D MPV 8.6 L Immature Gran % (Auto) 0.2 Neut % (Auto) 70.4 Lymph % (Auto) 16.5 L [place] % (Auto) 11.5 H Eos % (Auto) 0.8 Baso % (Auto) 0.6 Lymph # (Auto) 1.7 [place] # (Auto) 1.2 Eos # (Auto) 0.1 Baso # (Auto) 0.1 Abs Immat Gran (auto) 0.02 Absolute Neuts (auto) 7.1 Absolute Nucleated RBC 0.000 Nucleated RBC % (auto) 0.0 Sodium Potassium Chloride Carbon Dioxide Anion Gap BUN Creatinine Estim Creat Clear Calc Estimated GFR Random Glucose Calcium Total Bilirubin AST ALT Alkaline Phosphatase Total Protein Albumin TSH Urine Color Yellow Urine Appearance Clear Urine pH 6.5 Ur Specific [place] 1.010 Urine Protein Negative Urine Glucose (UA) Negative Urine Ketones Negative Urine Blood Small (1+) H Urine Nitrite Negative Ur Leukocyte Esterase Negative Urine RBC 6-10 H Urine WBC 0-5 Ur Squamous Epith Cells 0-2 Urine Bacteria None Seen Hyaline Casts 0-2 Urine Test Urine Opiates Screen Ur Buprenorphine Scrn Ur Oxycodone Screen Urine Methadone Screen Urine Fentanyl Screen Ur Barbiturates Screen Valproic Acid 57.9 Ur Phencyclidine Scrn Ur Amphetamines Screen U Benzodiazepines Scrn Urine Cocaine Screen U Marijuana (THC) Screen Ethyl Alcohol Airway Mallampati Class: II TM Dist: >3cm Neck ROM: Full Heart: rrr Lungs: cta Assessment and Plan Assessment Anesthesia Assessment: Anesthesia Plan Discussed and Chart Reviewed Final Anesthetic Review Family History of Problems with Anesthesia: No History of Problems with Anesthesia: No NPO: Yes ASA Class: III Final Preanesthetic Review: No Changes in Pt Med Stat, Meds/Allgs Chart Reviewed and Consent Obtained/Reviewed Patient Risk: Intermediate Procedure Risk: Intermediate Anesthetic Plan Anesthetic Plan: GA Disposition: Standard PACU
[2024-03-24] MEDS: Lactated Ringers 1,000 ML 50 ML IVCONT (06:51)
--- NOTE | 2024-03-24 06:54 | PC.NURSE ---
Pt out to ECT after 6am. Alert and oriented x4. VS: T 98.4, P 95, BP 88/63, O2sat 100% on RA. Slept 8 hrs.
--- NOTE | 2024-03-24 06:59 | MHC.SHP ---
Pre-Procedural Eval Section A - 24 Hr Update-Section A only Date of Service: 03/24/24 The patient is an INPATIENT: Yes Changes since office visit: No Cold of Flu in the past 2 weeks, No New Medical Problems, No Changes in Medication and No Patient answered all questions The patient has been examined within 24 hours of the surgical procedure. The History & Physical has been completed within 30 days and I have reviewed it.: Yes Section B - Complete if H&P > 30 days Chief Complaint: bipolar mixed state akathesia not responding to tx Allergies: Allergies Allergy/AdvReac Type Severity Reaction Status Date / Time No Known Allergies Allergy Verified 03/11/24 14:49 Plan I have reviewed the history and physical and performed a pertinent physical examination on my patient. No changes have occurred unless specified. Time Spent With Patient Time: Total time managing care of this patient today ____ minutes.
--- NOTE | 2024-03-24 08:09 | HO.ECTPROC ---
ECT Procedure Note Diagnosis/Treatment Date of Service: 03/24/24 Diagnosis: Bipolar disorder Previous ECT Date: 03/21/24 Current Treatment Number: 5 Treatment: Series Interval Clinical Notes: The patient is by far, less anxious, still some dysphoria but much better.. The patient couldn't remember the preivuos procedures, she denies side effects with ECT. EDT done as usual, no complications. Time: Total time managing care of this patient today ____ minutes. ECT Settings Device: THYMATRON DGx Electrode Placement: Right Unilateral Program/Pulse Width: 0.25 Energy Percent: 100 Seizure Duration By EEG (in seconds): 44 By Motor Observation (in seconds): 16 Medications Administration General Anesthetic: Etomidate (14) Muscle Relaxant: Succinylcholine (80) Ancillary Medications Analgesics: Torodol - Pre ECT Anti-emetics: Zofran - Pre ECT Miscillaneous Medications: Midazolam (post ECT) Airway Management Airway Management: Bag Mask Ventilation Treatment Recommendations No Changes Recommended: No change Pt Tolerated Procedure w/o Issue: Yes
[2024-03-24] MEDS: LORazepam 1 MG TABLET PO (09:27)
[2024-03-24] MEDS: Acetaminophen 325 MG TABLET 650 MG PO (09:27)
[2024-03-24] MEDS: Propranolol HCL 10 MG TABLET PO ×2 (09:28→15:57)
[2024-03-24] MEDS: proGESTerone, Micronized 100 MG CAPSULE PO (09:28)
--- NOTE | 2024-03-24 15:50 | PM.PSYDC ---
DS: Providers Provider Date of Service: 03/24/24 Date of admission: 03/11/24 20:56 Date of discharge: 03/24/24 Primary care physician: Nitesh Rosenberg MD Admitting clinician: Prasanna Cancino Consults: 03/12/24 15:32 Consult to Hospitalist Routine Comment: Consulting Provider: Hospitalist Reason For Exam: preop ect consult Attending physician on discharge: Prasanna Cancino Discharging clinician: Prasanna Cancino DS: Diagnosis Discharge Diagnosis (1) Bipolar affective, mixed, severe: Status: Acute (2) Akathisia: Status: Acute (3) Panic attacks: Status: Acute DS: Medications Discharge Medications Home Medications: Home Medications ?Medication ?Instructions ?Recorded ?Confirmed estradiol 0.0375 mg/24 hr 1 patch topical 2XW 03/11/24 03/11/24 semiweekly transdermal patch progesterone micronized 100 mg 100 mg PO DAILY 03/11/24 03/11/24 capsule Previous Rx's ?Medication ?Instructions ?Recorded hydroxyzine HCl 25 mg tablet 25 mg PO BEDTIME #30 tabs 03/24/24 hydroxyzine HCl 25 mg tablet 25 mg PO BEDTIME 30 days #45 tabs 03/24/24 lorazepam 1 mg tablet See Rx Instructions .Route 03/24/24 .COMPLEX 2 weeks #35 tabs propranolol 10 mg tablet 5 mg (1/2 x 10 mg) PO TID PRN 03/24/24 anxiety #90 tabs Mental Status Exam Mental Status Exam Patient Appearance: Appropriate Patient Orientation: Person, Place and Situation Level of Consciousness: Awake and Alert Patient Behavior: Appropriate and Anxious Behavior Comments: Cooperative social in the milieu Mood Description: Anxious (Much less intense) Affect Description: Constricted Patient Cognition Impaired: Yes Ability to Follow Directions: Good Speech Pattern: Clear and Rambling Memory Description: Immediate Impaired and Working Impaired Data Data Completed and Pending Completed studies during hospitalization [Text1]: 03/18/24 03/18/24 17:10 18:24 WBC 10.0 RBC 4.18 L Hgb 14.0 Hct 41.7 MCV 99.8 H MCH 33.5 H MCHC 33.6 RDW 12.5 Plt Count 226 D MPV 8.6 L Immature Gran % (Auto) 0.2 Neut % (Auto) 70.4 Lymph % (Auto) 16.5 L [place] % (Auto) 11.5 H Eos % (Auto) 0.8 Baso % (Auto) 0.6 Lymph # (Auto) 1.7 [place] # (Auto) 1.2 Eos # (Auto) 0.1 Baso # (Auto) 0.1 Abs Immat Gran (auto) 0.02 Absolute Neuts (auto) 7.1 Absolute Nucleated RBC 0.000 Nucleated RBC % (auto) 0.0 Urine Color Yellow Urine Appearance Clear Urine pH 6.5 Ur Specific Oliver 1.010 Urine Protein Negative Urine Glucose (UA) Negative Urine Ketones Negative Urine Blood Small (1+) H Urine Nitrite Negative Ur Leukocyte Esterase Negative Urine RBC 6-10 H Urine WBC 0-5 Ur Squamous Epith Cells 0-2 Urine Bacteria None Seen Hyaline Casts 0-2 Imaging Diagnostic Imaging Impressions Head CT 03/11/24 17:51 IMPRESSION: No acute intracranial process seen DS: Summary Hospital Course Hospital Course: Signed Patient: Vicki Contreras MR#: [id number] : 1970 Acct:[id number] Age/Sex: 53 / F Loc: .[id number]: Prasanna Cancino MD cc: Prasanna Cancino MD~ [facility] Date of Service: 03/12/24 Chief Complaint: bipolar mixed state akathesia not responding to tx Sources of Information: patient interviewed and chart reviewed Additional Sources of Information: spoke with dr goldman pts and dr goldman [facility] Subjective Notes: Wallace Warning and Conditional Voluntary Healthcare Proxy: No Guardianship: No Narrative: The patient is a 53-year-old female who has become increasingly anxious despondent hopeless with marked poor concentration restlessness in the context of and increasingly treatment resistant mood disorder. She has been seeing a nurse practitioner in [facility] her primary care provider is Dr. Rosenberg The patient was recently discharged from [facility] and she had a 2nd opinion couple of days ago with Dr. Goldman who felt that the patient most likely required ECT and should be hospitalized. The patient was thought to be in a mixed manic agitated state by Dr. Streeter May since then she has been on multiple different medication trials but has been unable to stabilize with constant restlessness/akathisia racing thoughts marked anxiety difficulty concentration and worsening basic functioning. 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 The patient had been stable on Paxil for over 20 years until proximally of 2022. There is a history of depression. Currently the patient has been on benztropine 0.5 mg daily escitalopram was recently started 5 mg daily olanzapine 5-10 mg at bedtime lorazepam 0.5-1 mg up to 3 times a day as needed and Depakote was recently at 500 mg at bedtime. Propranolol 5-10 mg 3 times a day as needed for restlessness she did recently see Dr. Collin Pavon in a Neurology consult who felt there was restlessness. Of note her daughter has been manage diagnosed with bipolar disorder Medication trials The patient in August had trials of Paxil to 40 mg a day Seroquel up to 25 mg at bedtime lorazepam 1 mg at bedtime she was thought to be hypomanic she was started on olanzapine and Lamictal Paxil was lowered continued as manic with hyperactivity anxiety pressured speech Highest dose of Lamictal it appears to be about 100 mg felt numb this was lowered Paxil was tapered down olanzapine 10 mg at bedtime continued with severe anxiety hypomania . The patient was admitted to am 3 psychiatric in [facility] in December she was discharged on clonazepam Depakote 750 mg Paxil 10 mg Risperdal 1 mg b.i.d. she felt quite sedated Depakote was decreased Paxil eventually discontinued Risperdal lowered. In January she was started on Abilify was on Depakote clonazepam 0.5 b.i.d. Abilify 5 mg was restarted on hormone replacement therapy at that time. Sertraline was continued at 25 mg daily Depakote was being tapered and nearly February BuSpar Abilify Risperdal were discontinued Seroquel 100 mg at bedtime continues to have poor sleep pacing restlessness severe anxiety tremulousness question akathisia symptoms. Seven hundred seventeen Seroquel was discontinued continue on lorazepam benztropine low-dose Depakote 250 mg patient then had a consultation with Dr. Goldman. Past Psychiatric History: Partial hospital admission in December [facility] admission in December on 3 No substance abuse treatment hx Denies hx of suicide attempts or SIBs Denies hx of aggression Reports history of PPD/ depression after both pregnancies (on Paxil) Psych provider: Denise Williamson PNP PCP: Nitesh Bigda DO Previous trials: lamotrigine (as high as 75 mg/d since Aug, recently discontinued) See above Medical Evaluation Reviewed: Yes [facility] Medical History (Updated 03/12/24 @ 17:16 by Prasanna Cancino MD) Akathisia Panic attacks Anxiety No known health problems Family History: Per assessment, patient noted daughter with Bipolar dx Social History: LIves at home with Has 2 adult children ages 28 and 25 Works as a paraprofessional at an elementary school, currently on leave from work since 12/12 Tried to return to work unable to function Substance History: na Trauma History: denies Diagnostics Vital Signs (24Hr): Vital Signs - 24 hr 03/11/24 14:45 03/11/24 14:50 03/11/24 17:29 Temperature 98.1 F 98.1 F 98.1 F Pulse Rate 99 99 75 Respiratory Rate 18 18 18 Blood Pressure 116/81 116/81 121/79 Pulse Oximetry 100 100 98 Oxygen Delivery Method Room Air Room Air Room Air 03/11/24 22:32 03/11/24 23:15 03/12/24 07:30 Temperature 97.8 F 98.5 F 97.5 F Pulse Rate 79 79 93 Respiratory Rate 16 16 18 Blood Pressure 126/91 H 126/83 121/92 H Pulse Oximetry 98 99 100 Oxygen Delivery Method Room Air Room Air Room Air 03/12/24 08:00 Temperature 97.5 F Pulse Rate 93 Respiratory Rate 18 Blood Pressure 121/92 H Pulse Oximetry 100 Oxygen Delivery Method Room Air BMI result Body Mass Index 17.2 Labs 03/11/24 14:44 document embedded image 03/11/24 14:44 document embedded image Labs: Laboratory Results - last 48 hr 03/11/24 03/11/24 03/11/24 14:44 17:25 17:49 WBC 6.2 RBC 4.17 L Hgb 13.9 Hct 39.4 MCV 94.5 MCH 33.3 H MCHC 35.3 H RDW 12.2 Plt Count 311 MPV 8.6 L Immature Gran % (Auto) 0.2 Neut % (Auto) 66.1 Lymph % (Auto) 21.5 [place] % (Auto) 11.1 H Eos % (Auto) 0.3 Baso % (Auto) 0.8 Lymph # (Auto) 1.3 [place] # (Auto) 0.7 Eos # (Auto) 0.0 Baso # (Auto) 0.1 Abs Immat Gran (auto) 0.01 Absolute Neuts (auto) 4.1 Absolute Nucleated RBC 0.000 Nucleated RBC % (auto) 0.0 Sodium 137 Potassium 4.1 Chloride 102 Carbon Dioxide 25 Anion Gap 14 BUN 13 Creatinine 0.78 Estim Creat Clear Calc 63.8 Estimated GFR > 60 Random Glucose 110 Calcium 10.0 Total Bilirubin 0.4 AST 20 ALT 18 Alkaline Phosphatase 59 Total Protein 7.1 Albumin 4.8 TSH 0.77 Urine Color Yellow Urine Appearance Clear Urine pH 7.0 Ur Specific Oliver 1.015 Urine Protein Negative Urine Glucose (UA) Negative Urine Ketones Negative Urine Blood Moderate (2+) H Urine Nitrite Negative Ur Leukocyte Esterase Negative Urine RBC 11-20 H Urine WBC 0-5 Ur Squamous Epith Cells 6-10 Urine Bacteria None Seen Hyaline Casts 0-2 Urine Test NEGATIVE Urine Opiates Screen Not Detected Ur Buprenorphine Scrn Not Detected Ur Oxycodone Screen Not Detected Urine Methadone Screen Not Detected Urine Fentanyl Screen Not Detected Ur Barbiturates Screen Not Detected Valproic Acid Ur Phencyclidine Scrn Not Detected Ur Amphetamines Screen Not Detected U Benzodiazepines Scrn Not Detected Urine Cocaine Screen Not Detected U Marijuana (THC) Screen Not Detected Ethyl Alcohol < 10 03/12/24 08:22 WBC RBC Hgb Hct MCV MCH MCHC RDW Plt Count MPV Immature Gran % (Auto) Neut % (Auto) Lymph % (Auto) [place] % (Auto) Eos % (Auto) Baso % (Auto) Lymph # (Auto) [place] # (Auto) Eos # (Auto) Baso # (Auto) Abs Immat Gran (auto) Absolute Neuts (auto) Absolute Nucleated RBC Nucleated RBC % (auto) Sodium Potassium Chloride Carbon Dioxide Anion Gap BUN Creatinine Estim Creat Clear Calc Estimated GFR Random Glucose Calcium Total Bilirubin AST ALT Alkaline Phosphatase Total Protein Albumin TSH Urine Color Urine Appearance Urine pH Ur Specific Oliver Urine Protein Urine Glucose (UA) Urine Ketones Urine Blood Urine Nitrite Ur Leukocyte Esterase Urine RBC Urine WBC Ur Squamous Epith Cells Urine Bacteria Hyaline Casts Urine Test Urine Opiates Screen Ur Buprenorphine Scrn Ur Oxycodone Screen Urine Methadone Screen Urine Fentanyl Screen Ur Barbiturates Screen Valproic Acid 57.9 Ur Phencyclidine Scrn Ur Amphetamines Screen U Benzodiazepines Scrn Urine Cocaine Screen U Marijuana (THC) Screen Ethyl Alcohol Imaging Radiology Impressions: ITS Impressions Head CT 03/11/24 17:51 IMPRESSION: No acute intracranial process seen Meds/Allergies Meds Home Medications Medication Instructions Recorded Confirmed Type benztropine 0.5 mg tablet 0.5 mg PO BEDTIME 03/11/24 03/11/24 History divalproex 250 mg tablet,delayed 500 mg PO BEDTIME 03/11/24 03/11/24 History release escitalopram oxalate 5 mg tablet 5 mg PO DAILY 03/11/24 03/11/24 History estradiol 0.0375 mg/24 hr 1 patch topical 2XW 03/11/24 03/11/24 History semiweekly transdermal patch lorazepam 0.5 mg tablet 0.5 mg PO BID 03/11/24 03/11/24 History olanzapine 10 mg tablet 10 mg PO BEDTIME 03/11/24 03/11/24 History progesterone micronized 100 mg 100 mg PO DAILY 03/11/24 03/11/24 History capsule propranolol 10 mg tablet 10 - 20 mg PO TID PRN anxiety 03/11/24 03/11/24 History Allergies Allergies Allergy/AdvReac Type Severity Reaction Status Date / Time No Known Allergies Allergy Verified 03/11/24 14:49 Mental Status Exam Mental Status Exam Patient Appearance: Unkempt Patient Orientation: Person, Place and Situation Level of Consciousness: Awake, Restless and Alert Patient Behavior: Restless, Anxious and Distractible Mood Description: Fearful, Anxious, Flat and Nervous Affect Description: Depressed, Anxious, Labile and Apprehensive Patient Cognition Impaired: Yes Ability to Follow Directions: Fair Speech Pattern: Perseverating, Difficulty Finding Words, Rambling and Long Pauses Memory Description: Immediate Impaired and Working Impaired Hallucinations: None Delusions: Not Present Perceptual Disturbances: Depersonalization Thought Process: Rumination and Confusion Thought Content: positive for Racing, positive for Perseveration and positive for Disorganized Depressive Symptoms: Increased Anxiety, Insomnia, Diff. Making Decisions, Muscle Tension, Difficulty Sleeping, Loss of Int. in Activity, Hopelessness and Difficulty Concentrating Abnormal Motor Activity Signs and Symptoms: Agitation and Restlessness Judgement: Fair Judgement and Insight: limited patient having difficult time waiting information giving clear history she is alert and oriented severe anxiety difficulty with concentration racing thoughts mood depressed no euphoria Assessment & Plan Assessment & Plan (1) Bipolar affective, mixed, severe: Status: Acute Code(s): F31.63 - Bipolar disorder, current episode mixed, severe, without psychotic features (2) Akathisia: Status: Acute Code(s): G25.71 - Drug induced akathisia (3) Panic attacks: Status: Acute Code(s): F41.0 - Panic disorder [episodic paroxysmal anxiety] (4) Cognitive and behavioral changes: Status: Acute Code(s): R41.89 - Other symptoms and signs involving cognitive functions and awareness; R46.89 - Other symptoms and signs involving appearance and behavior Plan Patient appears to be in a mixed state and has been for an extended period of time affecting her cognitively and possibly secondary akathisia from a combination of an SSRI with hyperactivity and question antipsychotic induced akathisia Propranolol Cogentin may be helpful for akathisia Cogentin might worsen confusion given patient's lack response to treatment ECT would most likely be the most efficacious treatment and rapidly responding unclear if the patient has tardive akathisia no myoclonus suggestive serotonin syndrome Had head ct 03/11 unremarkable no metabolic abnormalities will avoid antipsychotics antidepressants preop for ECT Patient markedly depressed anxious with marked difficulty in functioning question medication induced cycling akathisia agree with recommendation of washout as much as possible and recommend ECT patient severely anxious needs lot of reassurance Spoke with patient's meeting set up for tomorrow Patient educated on: diagnosis, medication risk/benefits and ECT Informed Consent: further education needed Reason for continued inpatient stay Substantial Risk for: inability to function, rapid decompensation and med/psych decompensation Statement Statement: I have reviewed the history and physical and performed a pertinent examination on my patient. No changes have occurred unless specified. If the History and Physical was not performed prior to admission, the Hospitalist's service will be consulted for completing the admission physical. Hospital course See psychiatric admission note above for full information Patient was admitted to Center Psychiatry was unclear if she is having a bipolar mixed state or adverse effect from medication including possibility of serotonin syndrome. Escitalopram was held discontinued Depakote discontinued olanzapine discontinued patient had confusion severe agitation anxiety pacing and restlessness. Neurology had thought it was form akathisia The patient had been seen in consultation by Dr. Goldman who recommended ECT.. After evaluation patient in meeting with patient and patient's course of ECT was started and the patient received 5 inpatient right unilateral ECTs patient became significantly less agitated no longer is restless some retrograde amnesia for short-term events noted. She was treated with lorazepam 1 mg b.i.d. 0.5 bedtime 25 mg hydroxyzine at bedtime patient seems stable for discharge by 03/24/2024 patient had anxiety about the procedure anxiety about whether she was going to stay stable was explain many times that ECT was a and it did seem to be effective What is not clear is whether the patient had adverse effect from serotonin question form of serotonin syndrome question form of excited catatonia question mixed state from antidepressant. Also in the differential is antipsychotic induced akathisia with confusion have avoided psychiatric medication except for lorazepam to try and clear the patient's system she did seem to respond to ECT. Patient did have ECT on the day of discharge case reviewed with pt and greater than 30 min try and transition to maint ecr ? consider php at some point post ect Time Spent with Patient Time attestation: Total time managing care of this patient today ____ minutes. Discharge Plan Discharge Anticipated Discharge Date/Time: 03/24/24 16:00 Patient Disposition: Home, Self-Care Discharge Diagnosis: Bipolar dx mixed ? excited catatonia ? medication induced excitement Referrals: ECT [Other] - 03/26/24 7:00 am () Denise Williamson NP (Psychiatry) [Other] - 03/28/24 9:00 am Nitesh Rosenberg MD [Primary Care Provider] - 03/28/24 3:00 pm (Your follow up appt has been scheduled with [facility] Internal Medicine office seeing Mara CHO on Sunday03-28-24 @ 3pm.) Discharge Medications: New hydroxyzine HCl 25 mg Tablet 25 mg PO BEDTIME 30 Days Qty: 45 0RF Rx Instructions: 1 tab bedtime may take 1 tab daily for anxiety lorazepam 1 mg tablet See Rx Instructions .ROUTE .COMPLEX 14 Days Qty: 35 1RF Rx Instructions: 1 tab in the am 1 tab aft 1/2tab bedtime hydroxyzine HCl 25 mg tablet 25 mg PO BEDTIME Qty: 30 0RF Continued estradiol 0.0375 mg/24 hr patch semiweekly 1 patch topical 2XW Rx Instructions: Sunday's and Sunday' progesterone micronized 100 mg capsule 100 mg PO DAILY Changed propranolol 10 mg tablet 5 mg PO TID PRN (Reason: anxiety) Qty: 90 0RF Rx Instructions: 1/2-1 tab 3 x day for anxiety restlessness hold systolic less than 100 pulse less than 60 Discontinued benztropine 0.5 mg tablet 0.5 mg PO BEDTIME divalproex 250 mg tablet,delayed release (DR/EC) 500 mg PO BEDTIME olanzapine 10 mg tablet 10 mg PO BEDTIME lorazepam 0.5 mg tablet 0.5 mg PO BID escitalopram oxalate 5 mg tablet 5 mg PO DAILY Discharge Orders: Discharge Order (Routine); Ordered 03/24/24 Ordered By: Prasanna Cancino Diet: Advance to usual diet Activity on Discharge: do not drive Stand Alone Forms: Patient Portal Discharge page, Community Support Print Language: Polish Activity Restrictions/Additional Instructions: next ect 03/26/24 Care Plan Goals: stablize mood decrease anxiety improve cobcentration Health Concerns: agitated depression Plan of Treatment: ect lorazepam ect scheduled for 03/26 and 03/28 call cheikh any problems concerns [phone] re ect f/u with therapist and psychiatric nurse practicioner Assessment: calm alert processing info some retrograde amnesia Discharge Date/Time: 03/24/24 16:15
== END 2024-03-24 16:15 | disposition home or self-care (01) | DRG 753 ==
LOC: HO.ED 17:09 → HO.PADLT16 21:38
PROVIDERS: Physician Assistant; Physician Assistant Medical; Psychiatry & Neurology Psychiatry; Admitting Provider Psychiatry & Neurology Psychiatry; Emergency Provider Emergency Medicine; PCP Internal Medicine; Visit Provider Psychiatry & Neurology Psychiatry
PROC: GZB4ZZZ Other Electroconvulsive Therapy (ICD-10-PCS; CPT 90870; principal; 2024-03-14 09:00)
DX: F31.63 Bipolar disorder, current episode mixed, severe, without psychotic features (principal); G25.71 Drug induced akathisia; F41.0 Panic disorder [episodic paroxysmal anxiety]; T43.225A Adverse effect of selective serotonin reuptake inhibitors, initial encounter; Z79.899 Other long term (current) drug therapy
CPT/HCPCS: 36415; 70450; 80053; 80164; 80307; 81001; 81025; 84443; 85025; 90870; 93005; 99285; J0330; J1885; J2250; J2405; J7120; S9485

== ENCOUNTER → 2024-03-11 14:48 | Outpatient (BNV) | payer BC, SELFPAY | PROVIDERS: Admitting Provider Psychiatry & Neurology Psychiatry; Emergency Provider Emergency Medicine; PCP Internal Medicine; Visit Provider Internal Medicine Cardiovascular Disease | DX: I45.81 Long QT syndrome (principal) | CPT/HCPCS: 93010 ==

== ENCOUNTER → 2024-03-11 20:56 | Outpatient (BNV) | payer BC, SELFPAY | PROVIDERS: Admitting Provider Psychiatry & Neurology Psychiatry; Emergency Provider Emergency Medicine; PCP Internal Medicine; Visit Provider Physician Assistant | DX: Z02.2 Encounter for examination for admission to residential institution (principal) | CPT/HCPCS: 99429; 99499 ==

== ENCOUNTER → 2024-03-11 20:56 | Outpatient (BNV) | payer BC, SELFPAY | PROVIDERS: Admitting Provider Psychiatry & Neurology Psychiatry; Emergency Provider Emergency Medicine; PCP Internal Medicine; Visit Provider Psychiatry & Neurology Psychiatry | DX: F31.63 Bipolar disorder, current episode mixed, severe, without psychotic features (principal); G25.71 Drug induced akathisia; F41.0 Panic disorder [episodic paroxysmal anxiety] | CPT/HCPCS: 90792; 90870; 99231; 99232; 99238 ==

== ENCOUNTER → 2024-03-11 20:56 | Outpatient (BNV) | payer BC, SELFPAY | PROVIDERS: Admitting Provider Psychiatry & Neurology Psychiatry; Emergency Provider Emergency Medicine; PCP Internal Medicine; Visit Provider Social Worker | DX: F31.63 Bipolar disorder, current episode mixed, severe, without psychotic features (principal) | CPT/HCPCS: 90870; 99231; 99499 ==

== ENCOUNTER 2024-03-26 05:59 | Day surgery (SDC) | payer BC, SELFPAY ==
[2024-03-26] VITALS (7 sets, daily range): BP systolic 92–122; BP diastolic 47–75; PULSE 55–84; RESP 15–17; TEMP 36.4–37; O2SAT 98–100; BMI 18.2
--- NOTE | 2024-03-26 06:50 | HO.ANESPROP2 ---
[facility] Active Problems Active Problems: All Active Problems Routine medical exam (Acute) Bipolar affective, mixed, severe (Acute) Akathisia (Acute) Panic attacks (Acute) Anxiety (Acute) Bipolar 1 disorder, depressed, severe (Acute) Cognitive and behavioral changes (Acute) Other anxiety states (Acute) Past Medical History Medical History Bipolar affective, mixed, severe Akathisia Panic attacks Anxiety No known health problems Family History Family history of problems with anesthesia: No Surgical History History of Problems with Anesthesia: No Social History Social History Household Members: Spouse Household Members Other:: Housing: House Do you presently have visiting nurse or other home services: No Alcohol intake: current Alcohol intake frequency: does not drink Alcohol type: wine Patient Tobacco Use Status: Never used Tobacco e-Cigarette/Vaping Use: Never Used Second Hand Smoke Exposure: No Advance Directives: No Advance Directives Information Provided: Yes service: No Sexual orientation: Straight/Heterosexual Meds Allergies Allergy/AdvReac Type Severity Reaction Status Date / Time No Known Allergies Allergy Verified 03/11/24 14:49 Home Medications ?Medication ?Instructions ?Recorded ?Confirmed ?Last Taken ?Type estradiol 0.0375 mg/24 hr 1 patch topical 2XW 03/11/24 03/11/24 03/11/24 History semiweekly transdermal patch progesterone micronized 100 mg 100 mg PO DAILY 03/11/24 03/11/24 03/11/24 History capsule Exam Height,Weight and Vital Signs: Height 5 ft 6 in Weight 51.256 kg Last Vital Signs Temp 98.1 F 03/26/24 06:25 Pulse 74 03/26/24 06:25 Resp 16 03/26/24 06:25 BP 95/61 03/26/24 06:25 Pulse Ox 98 03/26/24 06:25 O2 Del Method Room Air 03/26/24 06:25 Airway Mallampati Class: II TM Dist: >3cm Neck ROM: Full Heart: rrr Lungs: cta Assessment and Plan Assessment Anesthesia Assessment: Anesthesia Plan Discussed and Chart Reviewed Final Anesthetic Review Family History of Problems with Anesthesia: No History of Problems with Anesthesia: No NPO: Yes ASA Class: III Final Preanesthetic Review: No Changes in Pt Med Stat, Meds/Allgs Chart Reviewed and Consent Obtained/Reviewed Patient Risk: Intermediate Procedure Risk: Intermediate Anesthetic Plan Anesthetic Plan: GA Disposition: Standard PACU
--- NOTE | 2024-03-26 07:05 | MHC.SHP ---
Pre-Procedural Eval Section A - 24 Hr Update-Section A only Date of Service: 03/26/24 The patient is an INPATIENT: No Changes since office visit: Yes Changes in Medication and Yes Patient answered all questions; No Cold of Flu in the past 2 weeks and No New Medical Problems Section B - Complete if H&P > 30 days Chief Complaint: Major depressive disorder, recurrent, severe with Details of Present Illness: recurrent mixed state s/p discharge Relevant Social History: None Medical History: No relevant PMH Allergies: Allergies Allergy/AdvReac Type Severity Reaction Status Date / Time No Known Allergies Allergy Verified 03/11/24 14:49 Review of Systems Sugical H&P ROS: Negative: Constitution, Cardiovascular, Respiratory and Neurological Exam Surgical H&P Exam: Normal: Heart, Normal: Lungs and Normal: Extremities Exam Comment: improved more stable no medical concerns Plan Diagnosis/Plan: Unchanged I have reviewed the history and physical and performed a pertinent physical examination on my patient. No changes have occurred unless specified. Time Spent With Patient Time: Total time managing care of this patient today ____ minutes.
[2024-03-26] MEDS: Lactated Ringers 1,000 ML 50 ML IVCONT (07:12)
--- NOTE | 2024-03-26 07:23 | HO.ECTPROC ---
ECT Procedure Note Diagnosis/Treatment Date of Service: 03/26/24 Diagnosis: Bipolar disorder Previous ECT Date: 03/24/24 Current Treatment Number: 6 Treatment: Series Interval Clinical Notes: The patient has some degree of retrograde amnesia does not remember the specifics prior to being in the hospital unclear if this represents excited delirium serotonin side effect pre-admission versus ECT effect was difficult to test patient cognitively previously. Patient's mood is markedly less anxious more stable somewhat flat not overly agitated or perseverative. Case has also been reviewed with patient's will hold series and will do a follow-up treatment in 1 week in order to limit side effects patient has not responded to medication previously Time: Total time managing care of this patient today ____ minutes. ECT Settings Device: THYMATRON DGx Electrode Placement: Right Unilateral Program/Pulse Width: 0.25 Energy Percent: 100 Seizure Duration By EEG (in seconds): 51 Medications Administration General Anesthetic: Etomidate (14) Muscle Relaxant: Succinylcholine (80) Ancillary Medications Analgesics: Torodol - Pre ECT Anti-emetics: Zofran - Pre ECT Airway Management Airway Management: Bag Mask Ventilation Treatment Recommendations No Changes Recommended: No change Pt Tolerated Procedure w/o Issue: Yes
== END 2024-03-26 08:24 | disposition home or self-care (01) ==
PROVIDERS: PCP Internal Medicine; Visit Provider Psychiatry & Neurology Psychiatry
PROC: (CPT 90870; principal; 2024-03-26 07:00)
DX: F31.60 Bipolar disorder, current episode mixed, unspecified (principal); R41.2 Retrograde amnesia; G25.71 Drug induced akathisia; Z79.899 Other long term (current) drug therapy
CPT/HCPCS: 90870; J0330; J1885; J2250; J2405

== ENCOUNTER → 2024-03-26 05:59 | Outpatient (BNV) | payer BC, SELFPAY | PROVIDERS: PCP Internal Medicine; Visit Provider Psychiatry & Neurology Psychiatry | DX: F33.3 Major depressive disorder, recurrent, severe with psychotic symptoms (principal) | CPT/HCPCS: 90870 ==

== ENCOUNTER 2024-04-02 05:57 | Day surgery (SDC) | payer BC, SELFPAY ==
[2024-04-02] VITALS (7 sets, daily range): BP systolic 93–106; BP diastolic 62–82; PULSE 72–96; RESP 14–20; TEMP 36.5–36.7; O2SAT 99–100; BMI 17.6
[2024-04-02] MEDS: Lactated Ringers 1,000 ML 100 ML IVCONT (06:31)
--- NOTE | 2024-04-02 07:06 | MHC.SHP ---
Pre-Procedural Eval Section A - 24 Hr Update-Section A only Date of Service: 04/02/24 Section B - Complete if H&P > 30 days Chief Complaint: Major depressive disorder, recurrent, severe with Details of Present Illness: pt feeling much better Relevant Family History (Specify if Yes): No Relevant Social History: None Present Medications: see Short Stay Collaborative assessment Allergies: Allergies Allergy/AdvReac Type Severity Reaction Status Date / Time No Known Allergies Allergy Verified 03/11/24 14:49 Review of Systems Sugical H&P ROS: Negative: Cardiovascular, Respiratory and Neurological and Yes, Specify: Psychiatric (much improved) Exam Surgical H&P Exam: Normal: Heart, Normal: Lungs and Normal: Neurological Exam Comment: Plan Diagnosis/Plan: Unchanged I have reviewed the history and physical and performed a pertinent physical examination on my patient. No changes have occurred unless specified. Time Spent With Patient Time: Total time managing care of this patient today ____ minutes.
--- NOTE | 2024-04-02 07:07 | P.CONAN_ITS ---
[facility] Active Problems Active Problems: All Active Problems Bipolar affective, mixed, severe (Acute) Akathisia (Acute) Panic attacks (Acute) Anxiety (Acute) Bipolar 1 disorder, depressed, severe (Acute) Cognitive and behavioral changes (Acute) Other anxiety states (Acute) Past Medical History Medical History Bipolar affective, mixed, severe Akathisia Panic attacks Anxiety No known health problems Family History Family history of problems with anesthesia: No Surgical History History of Problems with Anesthesia: No Social History Social History Household Members: Spouse Household Members Other:: Housing: House Do you presently have visiting nurse or other home services: No Alcohol intake: current Alcohol intake frequency: does not drink Alcohol type: wine Patient Tobacco Use Status: Never used Tobacco e-Cigarette/Vaping Use: Never Used Second Hand Smoke Exposure: No Advance Directives: No Advance Directives Information Provided: Yes service: No Sexual orientation: Straight/Heterosexual Meds Allergies Allergy/AdvReac Type Severity Reaction Status Date / Time No Known Allergies Allergy Verified 03/11/24 14:49 Active Medications: Current Medications Lactated Ringer's (Lr) 1,000 mls @ 100 mls/hr IVCONT .Q10H [facility] Last Admin: 04/02/24 06:31 Dose: 100 mls/hr Home Medications ?Medication ?Instructions ?Recorded ?Confirmed ?Last Taken ?Type estradiol 0.0375 mg/24 hr 1 patch topical 2XW 03/11/24 03/11/24 03/11/24 History semiweekly transdermal patch progesterone micronized 100 mg 100 mg PO DAILY 03/11/24 03/11/24 03/11/24 History capsule Exam Height,Weight and Vital Signs: Height 5 ft 6 in Weight 49.442 kg Last Vital Signs Temp 98.1 F 04/02/24 06:22 Pulse 72 04/02/24 06:22 Resp 14 04/02/24 06:22 BP 93/62 04/02/24 06:22 Pulse Ox 100 04/02/24 06:22 O2 Del Method Room Air 04/02/24 06:22 Airway Mallampati Class: II TM Dist: >3cm Neck ROM: Full Assessment and Plan Assessment Anesthesia Assessment: Anesthesia Plan Discussed and Chart Reviewed Final Anesthetic Review Family History of Problems with Anesthesia: No History of Problems with Anesthesia: No NPO: Yes ASA Class: III Final Preanesthetic Review: No Changes in Pt Med Stat, Meds/Allgs Chart Reviewed, Consent Obtained/Reviewed and Anes Risks/Benef Reviewed Patient Risk: Intermediate Procedure Risk: Low Anesthetic Plan Anesthetic Plan: GA Disposition: Standard PACU
--- NOTE | 2024-04-02 07:07 | HO.ECTPROC ---
ECT Procedure Note Diagnosis/Treatment Date of Service: 04/02/24 Diagnosis: Bipolar disorder and Catatonia Previous ECT Date: 03/26/24 Current Treatment Number: 7 Treatment: Series Interval Clinical Notes: pt has been doing better generally some post ect confusion Time: Total time managing care of this patient today ____ minutes. ECT Settings Device: THYMATRON DGx Electrode Placement: Right Unilateral Program/Pulse Width: 0.25 Energy Percent: 100 Seizure Duration By EEG (in seconds): 72 Medications Administration General Anesthetic: Etomidate (14) Muscle Relaxant: Succinylcholine (80) Ancillary Medications Anti-emetics: Zofran - Pre ECT Airway Management Airway Management: Bag Mask Ventilation Treatment Recommendations Energy Percent: 40 Notes: post lorazepam 1 mg given for post ect confusion anxiety
[2024-04-02] MEDS: LORazepam 2 MG/ML VIAL 1 MG IVPUSH (07:51)
== END 2024-04-02 08:46 | disposition home or self-care (01) ==
PROVIDERS: PCP Internal Medicine; Visit Provider Psychiatry & Neurology Psychiatry
PROC: (CPT 90870; principal; 2024-04-02 07:30)
DX: F31.60 Bipolar disorder, current episode mixed, unspecified (principal); F06.1 Catatonic disorder due to known physiological condition; F41.0 Panic disorder [episodic paroxysmal anxiety]; G25.71 Drug induced akathisia; F41.9 Anxiety disorder, unspecified; Z79.899 Other long term (current) drug therapy
CPT/HCPCS: 90870; J0330; J1596; J1885; J2060; J2405

== ENCOUNTER → 2024-04-02 05:57 | Outpatient (BNV) | payer BC, SELFPAY | PROVIDERS: PCP Internal Medicine; Visit Provider Psychiatry & Neurology Psychiatry | DX: F33.3 Major depressive disorder, recurrent, severe with psychotic symptoms (principal) | CPT/HCPCS: 90870 ==

== ENCOUNTER 2024-04-07 05:57 | Day surgery (SDC) | payer BC, SELFPAY ==
[2024-04-07] VITALS (10 sets, daily range): BP systolic 96–115; BP diastolic 62–77; PULSE 61–89; RESP 8–18; TEMP 36.4–36.8; O2SAT 99–100
--- NOTE | 2024-04-07 06:52 | P.CONAN_ITS ---
[facility] Active Problems Active Problems: All Active Problems Bipolar 1 disorder, depressed, severe (Acute) Cognitive and behavioral changes (Acute) Other anxiety states (Acute) Bipolar affective, mixed, severe (Acute) Akathisia (Acute) Panic attacks (Acute) Anxiety (Acute) Past Medical History Medical History (Updated 04/07/24 @ 06:50 by Krystle Swanson RN) Menopause Routine medical exam Bipolar affective, mixed, severe Akathisia Panic attacks Anxiety No known health problems Family History Family history of problems with anesthesia: No Surgical History History of Problems with Anesthesia: No Social History Social History Household Members: Spouse Household Members Other:: Housing: House Do you presently have visiting nurse or other home services: No Alcohol intake: current Alcohol intake frequency: does not drink Alcohol type: wine Patient Tobacco Use Status: Never used Tobacco e-Cigarette/Vaping Use: Never Used Second Hand Smoke Exposure: No Advance Directives: No Advance Directives Information Provided: Yes service: No Sexual orientation: Straight/Heterosexual Meds Allergies Allergy/AdvReac Type Severity Reaction Status Date / Time No Known Allergies Allergy Verified 03/11/24 14:49 Active Medications: Current Medications Lactated Ringer's (Lr) 1,000 mls @ 50 mls/hr IVCONT .Q20H [facility] Home Medications ?Medication ?Instructions ?Recorded ?Confirmed ?Last Taken ?Type estradiol 0.0375 mg/24 hr 1 patch topical 2XW 03/11/24 03/11/24 03/11/24 History semiweekly transdermal patch progesterone micronized 100 mg 100 mg PO DAILY 03/11/24 03/11/24 03/11/24 History capsule Exam Height,Weight and Vital Signs: Weight 48.988 kg Airway Mallampati Class: II TM Dist: >3cm Neck ROM: Full Heart: rrr Lungs: cta Assessment and Plan Assessment Anesthesia Assessment: Anesthesia Plan Discussed and Chart Reviewed Final Anesthetic Review Family History of Problems with Anesthesia: No History of Problems with Anesthesia: No NPO: Yes ASA Class: III Final Preanesthetic Review: No Changes in Pt Med Stat, Meds/Allgs Chart Reviewed and Consent Obtained/Reviewed Patient Risk: Intermediate Procedure Risk: Intermediate Anesthetic Plan Anesthetic Plan: GA Disposition: Standard PACU
[2024-04-07] MEDS: Lactated Ringers 1,000 ML 50 ML IVCONT (06:55)
--- NOTE | 2024-04-07 07:09 | MHC.SHP ---
Pre-Procedural Eval Section A - 24 Hr Update-Section A only Date of Service: 04/07/24 The patient is an INPATIENT: No Changes since office visit: Yes Cold of Flu in the past 2 weeks, Yes New Medical Problems, Yes Changes in Medication and Yes Patient answered all questions The patient has been examined within 24 hours of the surgical procedure. The History & Physical has been completed within 30 days and I have reviewed it.: Yes Section B - Complete if H&P > 30 days Chief Complaint: depression Allergies: Allergies Allergy/AdvReac Type Severity Reaction Status Date / Time No Known Allergies Allergy Verified 03/11/24 14:49 Plan I have reviewed the history and physical and performed a pertinent physical examination on my patient. No changes have occurred unless specified. Time Spent With Patient Time: Total time managing care of this patient today ____ minutes.
--- NOTE | 2024-04-07 07:21 | HO.ECTPROC ---
ECT Procedure Note Diagnosis/Treatment Date of Service: 04/07/24 Diagnosis: Bipolar disorder Previous ECT Date: 04/02/24 Current Treatment Number: 8 Treatment: Series Interval Clinical Notes: The patient reported some perseverative thoughts and anxiety but she looks by far, less dysphoric and anxious, looks much better. 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 She is going to see her prescriber today as an outpatient. ECT done as usual, no complications, woke up well. Time: Total time managing care of this patient today __30__ minutes. ECT Settings Device: THYMATRON DGx Electrode Placement: Right Unilateral Program/Pulse Width: 0.25 Energy Percent: 100 Seizure Duration By EEG (in seconds): 55 By Motor Observation (in seconds): 27 Medications Administration General Anesthetic: Etomidate (14) Muscle Relaxant: Succinylcholine (80) Ancillary Medications Analgesics: Torodol - Pre ECT Anti-emetics: Zofran - Pre ECT Airway Management Airway Management: Bag Mask Ventilation Treatment Recommendations No Changes Recommended: No change Pt Tolerated Procedure w/o Issue: Yes
== END 2024-04-07 08:28 | disposition home or self-care (01) ==
PROVIDERS: Psychiatry & Neurology Psychiatry; PCP Internal Medicine; Visit Provider Psychiatry & Neurology Psychiatry
PROC: (CPT 90870; principal; 2024-04-07 07:30)
DX: F31.60 Bipolar disorder, current episode mixed, unspecified (principal); F41.9 Anxiety disorder, unspecified; R41.1 Anterograde amnesia; R41.2 Retrograde amnesia; Z79.899 Other long term (current) drug therapy
CPT/HCPCS: 90870; J0330; J1885; J2405

== ENCOUNTER → 2024-04-07 05:57 | Outpatient (BNV) | payer BC, SELFPAY | PROVIDERS: PCP Internal Medicine; Visit Provider Psychiatry & Neurology Psychiatry | DX: F33.2 Major depressive disorder, recurrent severe without psychotic features (principal) | CPT/HCPCS: 90870 ==

== ENCOUNTER 2024-04-16 05:57 | Day surgery (SDC) | payer BC, SELFPAY ==
[2024-04-16] VITALS (7 sets, daily range): BP systolic 88–105; BP diastolic 64–70; PULSE 57–79; RESP 16; TEMP 36.8–36.9; O2SAT 100; BMI 17.8
--- NOTE | 2024-04-16 06:46 | P.CONAN_ITS ---
[facility] Active Problems Active Problems: All Active Problems Bipolar 1 disorder, depressed, severe (Acute) Cognitive and behavioral changes (Acute) Other anxiety states (Acute) Bipolar affective, mixed, severe (Acute) Akathisia (Acute) Panic attacks (Acute) Anxiety (Acute) Past Medical History Medical History (Updated 04/07/24 @ 06:50 by Krystle Swanson RN) Menopause Routine medical exam Bipolar affective, mixed, severe Akathisia Panic attacks Anxiety No known health problems Family History Family history of problems with anesthesia: No Surgical History History of Problems with Anesthesia: No Social History Social History Household Members: Spouse Household Members Other:: Housing: House Are you a primary student career development specialist to a significant other at home: No Do you presently have visiting nurse or other home services: No Alcohol intake: current Alcohol intake frequency: does not drink Alcohol type: wine Patient Tobacco Use Status: Never used Tobacco e-Cigarette/Vaping Use: Never Used Second Hand Smoke Exposure: No Advance Directives: No Advance Directives Information Provided: Yes service: No Sexual orientation: Straight/Heterosexual Meds Allergies Allergy/AdvReac Type Severity Reaction Status Date / Time No Known Allergies Allergy Verified 03/11/24 14:49 Home Medications ?Medication ?Instructions ?Recorded ?Confirmed ?Last Taken ?Type estradiol 0.0375 mg/24 hr 1 patch topical 2XW 03/11/24 03/11/24 03/11/24 History semiweekly transdermal patch progesterone micronized 100 mg 100 mg PO DAILY 03/11/24 03/11/24 03/11/24 History capsule Exam Height,Weight and Vital Signs: Height 5 ft 6 in Weight 49.895 kg Last Vital Signs Temp 98.2 F 04/16/24 06:26 Pulse 71 04/16/24 06:26 Resp 16 04/16/24 06:26 BP 93/64 04/16/24 06:26 Pulse Ox 100 04/16/24 06:26 O2 Del Method Room Air 04/16/24 06:26 Airway Mallampati Class: II TM Dist: >3cm Neck ROM: Full Heart: rrr Lungs: cta Assessment and Plan Assessment Anesthesia Assessment: Anesthesia Plan Discussed and Chart Reviewed Final Anesthetic Review Family History of Problems with Anesthesia: No History of Problems with Anesthesia: No NPO: Yes ASA Class: III Final Preanesthetic Review: No Changes in Pt Med Stat, Meds/Allgs Chart Reviewed and Consent Obtained/Reviewed Patient Risk: Intermediate Procedure Risk: Intermediate Anesthetic Plan Anesthetic Plan: GA Disposition: Standard PACU
--- NOTE | 2024-04-16 07:02 | MHC.SHP ---
Pre-Procedural Eval Section A - 24 Hr Update-Section A only Date of Service: 04/16/24 The patient is an INPATIENT: No Changes since office visit: Yes Changes in Medication The patient has been examined within 24 hours of the surgical procedure. The History & Physical has been completed within 30 days and I have reviewed it.: Yes Section B - Complete if H&P > 30 days Chief Complaint: depression Details of Present Illness: hx of bipolar depression, more stable since ECT was started Relevant Family History (Specify if Yes): Yes Relevant Social History: None Present Medications: see Short Stay Collaborative assessment Medical History: No relevant PMH History of Previous Operations: No relevant previous surgery Allergies: Allergies Allergy/AdvReac Type Severity Reaction Status Date / Time No Known Allergies Allergy Verified 03/11/24 14:49 Review of Systems Sugical H&P ROS: Negative: Constitution, Cardiovascular, Respiratory, Neurological, Psychiatric, Hem-Onc, Allergic/Immunologic, Gastrointestinal, Genitourinary, Musculoskeletal, Integumentary, Endocrine and Eyes/Ears/Nose/Throat Exam Surgical H&P Exam: Normal: HEENT, Normal: Heart, Normal: Lungs, Normal: Extremities, Normal: Abdomen, Normal: Skin and Normal: Neurological Plan Diagnosis/Plan: Unchanged I have reviewed the history and physical and performed a pertinent physical examination on my patient. No changes have occurred unless specified. Time Spent With Patient Time: Total time managing care of this patient today _15___ minutes.
[2024-04-16] MEDS: Lactated Ringers 1,000 ML 50 ML IVCONT (07:04)
--- NOTE | 2024-04-16 07:18 | HO.ECTPROC ---
ECT Procedure Note Diagnosis/Treatment Date of Service: 04/16/24 Diagnosis: Bipolar disorder Previous ECT Date: 04/11/24 Current Treatment Number: 9 Treatment: Series Interval Clinical Notes: The patient reported that she has poor short term memory and apraxia after the last procedure. Her mood is better but still anxious. ECT done right unilateral on 0.25 but I lowered to 90% with a good seizure, woke up anxious, added Midazolam 2 mg after the procedure. No complications. Time: Total time managing care of this patient today __30__ minutes. ECT Settings Device: THYMATRON DGx Electrode Placement: Right Unilateral Program/Pulse Width: 0.25 Energy Percent: 90 Seizure Duration By EEG (in seconds): 58 By Motor Observation (in seconds): 36 Medications Administration General Anesthetic: Etomidate (14) Muscle Relaxant: Succinylcholine (80) Ancillary Medications Analgesics: Torodol - Pre ECT (30) Anti-emetics: Zofran - Pre ECT (4) Miscillaneous Medications: Midazolam (2 mg after ECT) Airway Management Airway Management: Bag Mask Ventilation Treatment Recommendations Electrode Placement: Right Unilateral Program/Pulse Width: 0.25 Energy Percent: 90 Notes: Reassess if she continues having apraxia and poor short term memory, probably, we need to lower to 80%, she had 58s seizure with 90% Pt Tolerated Procedure w/o Issue: Yes
== END 2024-04-16 08:29 | disposition home or self-care (01) ==
PROVIDERS: PCP Internal Medicine; Visit Provider Psychiatry & Neurology Psychiatry
PROC: (CPT 90870; principal; 2024-04-16 08:00)
DX: F31.63 Bipolar disorder, current episode mixed, severe, without psychotic features (principal); F41.0 Panic disorder [episodic paroxysmal anxiety]; R48.2 Apraxia; G25.71 Drug induced akathisia; R41.3 Other amnesia; Z79.899 Other long term (current) drug therapy
CPT/HCPCS: 90870; J0330; J1885; J2250; J2405

== ENCOUNTER → 2024-04-16 05:57 | Outpatient (BNV) | payer BC, SELFPAY | PROVIDERS: PCP Internal Medicine; Visit Provider Psychiatry & Neurology Psychiatry | DX: F33.2 Major depressive disorder, recurrent severe without psychotic features (principal) | CPT/HCPCS: 90870 ==

== ENCOUNTER 2024-04-21 06:02 | Day surgery (SDC) | payer BC, SELFPAY ==
[2024-04-21] VITALS (8 sets, daily range): BP systolic 93–102; BP diastolic 60–70; PULSE 57–98; RESP 12–17; TEMP 36.2–36.8; O2SAT 97–100; BMI 17.8
--- NOTE | 2024-04-21 06:39 | P.CONAN_ITS ---
[facility] Active Problems Active Problems: All Active Problems Bipolar 1 disorder, depressed, severe (Acute) Cognitive and behavioral changes (Acute) Other anxiety states (Acute) Bipolar affective, mixed, severe (Acute) Akathisia (Acute) Panic attacks (Acute) Anxiety (Acute) Past Medical History Medical History (Updated 04/07/24 @ 06:50 by Krystle Swanson RN) Menopause Routine medical exam Bipolar affective, mixed, severe Akathisia Panic attacks Anxiety No known health problems Family History Family history of problems with anesthesia: No Surgical History History of Problems with Anesthesia: No Social History Social History Household Members: Spouse Household Members Other:: Housing: House Are you a primary palliative care nurse practitioner to a significant other at home: No Do you presently have visiting nurse or other home services: No Alcohol intake: current Alcohol intake frequency: does not drink Alcohol type: wine Patient Tobacco Use Status: Never used Tobacco e-Cigarette/Vaping Use: Never Used Second Hand Smoke Exposure: No Advance Directives: No Advance Directives Information Provided: Yes service: No Sexual orientation: Straight/Heterosexual Meds Allergies Allergy/AdvReac Type Severity Reaction Status Date / Time No Known Allergies Allergy Verified 03/11/24 14:49 Active Medications: Current Medications Lactated Ringer's (Lr) 1,000 mls @ 50 mls/hr IVCONT .Q20H [facility] Home Medications ?Medication ?Instructions ?Recorded ?Confirmed ?Last Taken ?Type estradiol 0.0375 mg/24 hr 1 patch topical 2XW 03/11/24 03/11/24 03/11/24 History semiweekly transdermal patch progesterone micronized 100 mg 100 mg PO DAILY 03/11/24 03/11/24 03/11/24 History capsule Exam Height,Weight and Vital Signs: Height 5 ft 6 in Weight 49.895 kg Last Vital Signs Temp 98.2 F 04/21/24 06:21 Pulse 69 04/21/24 06:21 Resp 16 04/21/24 06:21 BP 93/65 04/21/24 06:21 Pulse Ox 100 04/21/24 06:21 O2 Del Method Room Air 04/21/24 06:21 Airway Mallampati Class: II TM Dist: >3cm Neck ROM: Full Heart: rrr Lungs: cta Assessment and Plan Assessment Anesthesia Assessment: Anesthesia Plan Discussed and Chart Reviewed Final Anesthetic Review Family History of Problems with Anesthesia: No History of Problems with Anesthesia: No NPO: Yes ASA Class: III Final Preanesthetic Review: No Changes in Pt Med Stat, Meds/Allgs Chart Reviewed and Consent Obtained/Reviewed Patient Risk: Low Procedure Risk: Intermediate Anesthetic Plan Anesthetic Plan: GA Disposition: Standard PACU
--- NOTE | 2024-04-21 07:03 | MHC.SHP ---
Pre-Procedural Eval Section A - 24 Hr Update-Section A only Date of Service: 04/21/24 The patient is an INPATIENT: No Changes since office visit: No Cold of Flu in the past 2 weeks, No New Medical Problems, No Changes in Medication and No Patient answered all questions The patient has been examined within 24 hours of the surgical procedure. The History & Physical has been completed within 30 days and I have reviewed it.: Yes Section B - Complete if H&P > 30 days Chief Complaint: depression Details of Present Illness: Much better since ECT was started, no change on her medications Relevant Family History (Specify if Yes): Yes Relevant Social History: None Present Medications: see Short Stay Collaborative assessment Medical History: No relevant PMH History of Previous Operations: No relevant previous surgery Allergies: Allergies Allergy/AdvReac Type Severity Reaction Status Date / Time No Known Allergies Allergy Verified 03/11/24 14:49 Review of Systems Sugical H&P ROS: Negative: Constitution, Cardiovascular, Respiratory, Neurological, Psychiatric, Hem-Onc, Allergic/Immunologic, Gastrointestinal, Genitourinary, Musculoskeletal, Integumentary, Endocrine and Eyes/Ears/Nose/Throat Exam Surgical H&P Exam: Normal: HEENT, Normal: Heart, Normal: Lungs, Normal: Extremities, Normal: Abdomen, Normal: Skin and Normal: Neurological Plan Diagnosis/Plan: Unchanged I have reviewed the history and physical and performed a pertinent physical examination on my patient. No changes have occurred unless specified. Time Spent With Patient Time: Total time managing care of this patient today ___15_ minutes.
[2024-04-21] MEDS: Lactated Ringers 1,000 ML 50 ML IVCONT (07:29)
--- NOTE | 2024-04-21 07:45 | P.PCN_ITS ---
ECT Procedure Note Diagnosis/Treatment Date of Service: 04/21/24 Diagnosis: Bipolar disorder Previous ECT Date: 04/16/24 Current Treatment Number: 10 Treatment: Series Interval Clinical Notes: The paitient's mood and anxiety are much better, she adamantly denies depressive symptoms, her affect was brighter than usual, full range. No side effects with the previous ECT but she was complaining of apraxia on the last ECT. Today, I lowered the stimuli to 80% and she had a good seizure of 56s. Recenlty, she got Remeron at by [facility] prescriber. No complications, woke up well. Time: Total time managing care of this patient today ____ minutes. ECT Settings Device: THYMATRON DGx Electrode Placement: Right Unilateral Program/Pulse Width: 0.25 Energy Percent: 80 Seizure Duration By EEG (in seconds): 56 By Motor Observation (in seconds): 24 Medications Administration General Anesthetic: Etomidate (14) Muscle Relaxant: Succinylcholine (80) Ancillary Medications Analgesics: Torodol - Pre ECT Anti-emetics: Zofran - Pre ECT Miscillaneous Medications: Midazolam Airway Management Airway Management: Bag Mask Ventilation Treatment Recommendations No Changes Recommended: No change Pt Tolerated Procedure w/o Issue: Yes
== END 2024-04-21 09:20 | disposition home or self-care (01) ==
PROVIDERS: PCP Internal Medicine; Visit Provider Psychiatry & Neurology Psychiatry
PROC: (CPT 90870; principal; 2024-04-21 08:00)
DX: F31.63 Bipolar disorder, current episode mixed, severe, without psychotic features (principal); G25.71 Drug induced akathisia; F41.0 Panic disorder [episodic paroxysmal anxiety]; F41.9 Anxiety disorder, unspecified; R41.89 Other symptoms and signs involving cognitive functions and awareness; R46.89 Other symptoms and signs involving appearance and behavior; Z79.899 Other long term (current) drug therapy
CPT/HCPCS: 90870; J0330; J1885; J2250; J2405

== ENCOUNTER → 2024-04-21 06:02 | Outpatient (BNV) | payer BC, SELFPAY | PROVIDERS: PCP Internal Medicine; Visit Provider Psychiatry & Neurology Psychiatry | DX: F33.3 Major depressive disorder, recurrent, severe with psychotic symptoms (principal) | CPT/HCPCS: 90870 ==

== ENCOUNTER 2024-05-14 05:57 | Day surgery (SDC) | payer BC, SELFPAY ==
[2024-05-14 06:41] VITALS: BP 100/67; PULSE 67; RESP 16; TEMP 36.5; O2SAT 100; BMI 17.2
--- NOTE | 2024-05-14 07:07 | MHC.SHP ---
Pre-Procedural Eval Section A - 24 Hr Update-Section A only Date of Service: 05/14/24 The patient is an INPATIENT: No Changes since office visit: No Cold of Flu in the past 2 weeks, No New Medical Problems, No Changes in Medication and No Patient answered all questions The patient has been examined within 24 hours of the surgical procedure. The History & Physical has been completed within 30 days and I have reviewed it.: Yes Section B - Complete if H&P > 30 days Chief Complaint: Major depressive disorder, recurrent, severe with Allergies: Allergies Allergy/AdvReac Type Severity Reaction Status Date / Time No Known Allergies Allergy Verified 03/11/24 14:49 Plan I have reviewed the history and physical and performed a pertinent physical examination on my patient. No changes have occurred unless specified. Time Spent With Patient Time: Total time managing care of this patient today ____ minutes.
--- NOTE | 2024-05-14 07:13 | P.CONAN_ITS ---
HPI - Anesthesia Eval Consult details Narrative: for ECT [facility] Active Problems Active Problems: All Active Problems Bipolar 1 disorder, depressed, severe (Acute) Cognitive and behavioral changes (Acute) Other anxiety states (Acute) Bipolar affective, mixed, severe (Acute) Akathisia (Acute) Panic attacks (Acute) Anxiety (Acute) Past Medical History Medical History (Updated 04/07/24 @ 06:50 by Krystle Swanson RN) Menopause Routine medical exam Bipolar affective, mixed, severe Akathisia Panic attacks Anxiety No known health problems Family History Family history of problems with anesthesia: No Surgical History History of Problems with Anesthesia: No Social History Social History Household Members: Spouse Household Members Other:: Housing: House Are you a primary career guidance technician to a significant other at home: No Do you presently have visiting nurse or other home services: No Alcohol intake: current Alcohol intake frequency: does not drink Alcohol type: wine Patient Tobacco Use Status: Never used Tobacco e-Cigarette/Vaping Use: Never Used Second Hand Smoke Exposure: No Advance Directives: No Advance Directives Information Provided: Yes service: No Sexual orientation: Straight/Heterosexual Meds Allergies Allergy/AdvReac Type Severity Reaction Status Date / Time No Known Allergies Allergy Verified 03/11/24 14:49 Home Medications ?Medication ?Instructions ?Recorded ?Confirmed ?Last Taken ?Type estradiol 0.0375 mg/24 hr 1 patch topical 2XW 03/11/24 03/11/24 03/11/24 History semiweekly transdermal patch progesterone micronized 100 mg 100 mg PO DAILY 03/11/24 03/11/24 03/11/24 History capsule Exam Height,Weight and Vital Signs: Height 5 ft 7 in Weight 49.895 kg Last Vital Signs Temp 97.7 F 05/14/24 06:41 Pulse 67 05/14/24 06:41 Resp 16 05/14/24 06:41 BP 100/67 05/14/24 06:41 Pulse Ox 100 05/14/24 06:41 O2 Del Method Room Air 05/14/24 06:41 Airway Mallampati Class: II TM Dist: >3cm Neck ROM: Full Loose/Missing/Broken Teeth: No Heart: ok Lungs: ok Assessment and Plan Assessment Anesthesia Assessment: Anesthesia Plan Discussed and Chart Reviewed Final Anesthetic Review Family History of Problems with Anesthesia: No History of Problems with Anesthesia: No NPO: Yes ASA Class: III Final Preanesthetic Review: No Changes in Pt Med Stat, Meds/Allgs Chart Reviewed, Consent Obtained/Reviewed and Anes Risks/Benef Reviewed Patient Risk: Intermediate Procedure Risk: High Anesthetic Plan Anesthetic Plan: GA and Agree w/ Assess. and Plan Disposition: Standard PACU
--- NOTE | 2024-05-14 07:26 | HO.ECTPROC ---
ECT Procedure Note Diagnosis/Treatment Date of Service: 05/14/24 Diagnosis: Bipolar disorder Previous ECT Date: 04/21/24 Treatment: Maintenance Interval Clinical Notes: The patient reported sporadic episodes of anxiety, her Remeron was increased to 15 mg and she is still on Ativan tid. No side effects with previous ECT. ECT done as usual, no complicaitons, woke up well. Time: Total time managing care of this patient today ____ minutes. ECT Settings Device: THYMATRON DGx Electrode Placement: Right Unilateral Program/Pulse Width: 0.25 Energy Percent: 80 Seizure Duration By EEG (in seconds): 60 By Motor Observation (in seconds): 18 Medications Administration General Anesthetic: Etomidate (14) Muscle Relaxant: Succinylcholine (80) Ancillary Medications Analgesics: Torodol - Pre ECT Anti-emetics: Zofran - Pre ECT Miscillaneous Medications: Midazolam (2 mg post ECT) Airway Management Airway Management: Bag Mask Ventilation Treatment Recommendations No Changes Recommended: No change Pt Tolerated Procedure w/o Issue: Yes
[2024-05-14 07:35] VITALS: BP 105/70; PULSE 66; RESP 12; TEMP 37.1; O2SAT 100
[2024-05-14 07:40] VITALS: BP 99/70; PULSE 71; RESP 13; O2SAT 100
[2024-05-14 07:45] VITALS: BP 107/78; PULSE 85; RESP 16; O2SAT 100
[2024-05-14 07:50] VITALS: BP 115/78; PULSE 78; RESP 16; O2SAT 99
[2024-05-14 08:05] VITALS: BP 109/77; PULSE 85; RESP 17; O2SAT 99
== END 2024-05-14 08:38 | disposition home or self-care (01) ==
PROVIDERS: PCP Internal Medicine; Visit Provider Psychiatry & Neurology Psychiatry
PROC: (CPT 90870; principal; 2024-05-14 08:00)
DX: F31.63 Bipolar disorder, current episode mixed, severe, without psychotic features (principal); F41.9 Anxiety disorder, unspecified; F41.0 Panic disorder [episodic paroxysmal anxiety]; G25.71 Drug induced akathisia; Z79.899 Other long term (current) drug therapy
CPT/HCPCS: 90870; J0330; J1885; J2250; J2405

== ENCOUNTER → 2024-05-14 05:57 | Outpatient (BNV) | payer BC, SELFPAY | PROVIDERS: PCP Internal Medicine; Visit Provider Psychiatry & Neurology Psychiatry | DX: F33.3 Major depressive disorder, recurrent, severe with psychotic symptoms (principal) | CPT/HCPCS: 90870 ==

== ENCOUNTER 2024-05-23 05:55 | Day surgery (SDC) | payer BC, SELFPAY ==
[2024-05-23 06:38] VITALS: BP 99/60; PULSE 76; RESP 14; TEMP 36.5; O2SAT 100; BMI 18.6
--- NOTE | 2024-05-23 06:57 | P.CONAN_ITS ---
HPI - Anesthesia Eval Consult details Narrative: 53 yo F presenting for ECT [facility] Active Problems Active Problems: All Active Problems Bipolar 1 disorder, depressed, severe (Acute) Cognitive and behavioral changes (Acute) Other anxiety states (Acute) Bipolar affective, mixed, severe (Acute) Akathisia (Acute) Panic attacks (Acute) Anxiety (Acute) Past Medical History Medical History (Updated 04/07/24 @ 06:50 by Krystle Swanson RN) Menopause Routine medical exam Bipolar affective, mixed, severe Akathisia Panic attacks Anxiety No known health problems Family History Family history of problems with anesthesia: No Surgical History History of Problems with Anesthesia: No Social History Social History Household Members: Spouse Household Members Other:: Housing: House Are you a primary child care centre director to a significant other at home: No Do you presently have visiting nurse or other home services: No Alcohol intake: current Alcohol intake frequency: does not drink Alcohol type: wine Patient Tobacco Use Status: Never used Tobacco e-Cigarette/Vaping Use: Never Used Second Hand Smoke Exposure: No Advance Directives: No Advance Directives Information Provided: Yes service: No Sexual orientation: Straight/Heterosexual Meds Allergies Allergy/AdvReac Type Severity Reaction Status Date / Time No Known Allergies Allergy Verified 03/11/24 14:49 Home Medications ?Medication ?Instructions ?Recorded ?Confirmed ?Last Taken ?Type estradiol 0.0375 mg/24 hr 1 patch topical 2XW 03/11/24 03/11/24 03/11/24 History semiweekly transdermal patch progesterone micronized 100 mg 100 mg PO DAILY 03/11/24 03/11/24 03/11/24 History capsule Exam Exam Date and Time: 05/23/24 0650 Height,Weight and Vital Signs: Height 5 ft 6 in Weight 52.163 kg Last Vital Signs Temp 97.7 F 05/23/24 06:38 Pulse 76 05/23/24 06:38 Resp 14 05/23/24 06:38 BP 99/60 05/23/24 06:38 Pulse Ox 100 05/23/24 06:38 O2 Del Method Room Air 05/23/24 06:38 Airway Mallampati Class: II TM Dist: >3cm Neck ROM: Full Loose/Missing/Broken Teeth: No (patient denies any loose or broken teeth) Heart: S1S2 Lungs: CTAB Assessment and Plan Assessment Anesthesia Assessment: Anesthesia Plan Discussed and Chart Reviewed Final Anesthetic Review Family History of Problems with Anesthesia: No History of Problems with Anesthesia: No NPO: Yes ASA Class: III Final Preanesthetic Review: No Changes in Pt Med Stat, Meds/Allgs Chart Reviewed, Consent Obtained/Reviewed and Anes Risks/Benef Reviewed Patient Risk: Low Procedure Risk: Low Anesthetic Plan Anesthetic Plan: GA and Agree w/ Assess. and Plan Disposition: Standard PACU
--- NOTE | 2024-05-23 07:01 | MHC.SHP ---
Pre-Procedural Eval Section A - 24 Hr Update-Section A only Date of Service: 05/23/24 The patient is an INPATIENT: No Changes since office visit: No Cold of Flu in the past 2 weeks, No New Medical Problems, No Changes in Medication and No Patient answered all questions The patient has been examined within 24 hours of the surgical procedure. The History & Physical has been completed within 30 days and I have reviewed it.: Yes Section B - Complete if H&P > 30 days Chief Complaint: depression Allergies: Allergies Allergy/AdvReac Type Severity Reaction Status Date / Time No Known Allergies Allergy Verified 03/11/24 14:49 Plan I have reviewed the history and physical and performed a pertinent physical examination on my patient. No changes have occurred unless specified. Time Spent With Patient Time: Total time managing care of this patient today ____ minutes.
--- NOTE | 2024-05-23 07:06 | HO.ECTPROC ---
ECT Procedure Note Diagnosis/Treatment Date of Service: 05/26/24 Diagnosis: Bipolar disorder Previous ECT Date: 05/14/24 Treatment: Maintenance Interval Clinical Notes: The patient has had some inc anxiety does better with ect had tried to go out 3 wks did not tolerate Time: Total time managing care of this patient today _30___ minutes. ECT Settings Device: THYMATRON DGx Electrode Placement: Right Unilateral Program/Pulse Width: 0.25 Energy Percent: 80 Seizure Duration By EEG (in seconds): 60 By Motor Observation (in seconds): 18 Medications Administration General Anesthetic: Etomidate (14) Muscle Relaxant: Succinylcholine (80) Ancillary Medications Analgesics: Torodol - Pre ECT Anti-emetics: Zofran - Pre ECT Miscillaneous Medications: Midazolam (2 mg post ECT) Airway Management Airway Management: Bag Mask Ventilation Treatment Recommendations No Changes Recommended: No change Pt Tolerated Procedure w/o Issue: Yes
[2024-05-23 07:19] VITALS: BP 94/55; PULSE 74; RESP 15; TEMP 36.1; O2SAT 98
[2024-05-23 07:24] VITALS: BP 105/68; PULSE 75; RESP 10; O2SAT 97
[2024-05-23 07:29] VITALS: BP 103/68; PULSE 79; RESP 18; O2SAT 97
[2024-05-23 07:34] VITALS: BP 111/74; PULSE 89; RESP 12; O2SAT 98
[2024-05-23 07:49] VITALS: BP 112/72; PULSE 82; RESP 16; TEMP 36.1; O2SAT 99
[2024-05-23] MEDS: LORazepam 1 MG TABLET PO (07:59)
== END 2024-05-23 08:10 | disposition home or self-care (01) ==
PROVIDERS: PCP Internal Medicine; Visit Provider Psychiatry & Neurology Psychiatry
PROC: (CPT 90870; principal; 2024-05-23 07:30)
DX: F31.63 Bipolar disorder, current episode mixed, severe, without psychotic features (principal); F41.9 Anxiety disorder, unspecified; F41.0 Panic disorder [episodic paroxysmal anxiety]; G25.71 Drug induced akathisia; Z79.899 Other long term (current) drug therapy
CPT/HCPCS: 90870; J0330; J1885; J2250; J2405

== ENCOUNTER → 2024-05-23 05:55 | Outpatient (BNV) | payer BC, SELFPAY | PROVIDERS: PCP Internal Medicine; Visit Provider Psychiatry & Neurology Psychiatry | DX: F33.2 Major depressive disorder, recurrent severe without psychotic features (principal) | CPT/HCPCS: 90870 ==

== ENCOUNTER 2024-06-02 15:04 | Outpatient (AMB) | payer BC, SELFPAY ==
--- NOTE | 2024-06-02 15:13 | A.OFFPSYCH_ITS ---
Intake Intake Visit Reasons: f/u for ect Allergies No Known Allergies Allergy (Verified 03/11/24 14:49) Medication List - Last Reconciled 06/02/24 by Prasanna Cancino MD estradiol 1 patch topical 2XW hydroxyzine HCl 25 mg PO BEDTIME 30 days hydroxyzine HCl 25 mg PO BEDTIME lorazepam 1 tab in the am 1 tab aft 1/2tab bedtime 2 weeks mirtazapine 15 mg PO BEDTIME progesterone micronized 100 mg PO DAILY propranolol 5 mg (1/2 x 10 mg) PO TID PRN HPI- Psychiatric Chief Complaint: f/u for ect HPI Narrative: Pt seen in f/u with her has been doing better with ect able to return to work mood has been somewhat anxious but 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 Pt has been more alert still periods of anxiety no psychosis no self harm. Past Psychiatric History: Partial hospital admission in December [facility] admission in December on 3 No substance abuse treatment hx Denies hx of suicide attempts or SIBs Denies hx of aggression Reports history of PPD/ depression after both pregnancies (on Paxil) Psych provider: Denise Williamson PNP PCP: Nitesh Rosenberg DO Previous trials: lamotrigine (as high as 75 mg/d since Aug, recently discontinued) See above Mental Status Exam Mental Status Exam Patient Appearance: Appropriate Patient Orientation: Person, Place and Situation Level of Consciousness: Awake and Alert Patient Behavior: Appropriate and Anxious Behavior Comments: Cooperative social in the milieu Mood Description: Anxious (Much less intense) Affect Description: Constricted Patient Cognition Impaired: No Ability to Follow Directions: Good Speech Pattern: Clear and Rambling Memory Description: Intact Judgement and Insight: worried re future and need for cont ect Assessment and Plan Assessment & Plan (1) Other anxiety states: Status: Acute Code(s): F41.1 - Generalized anxiety disorder (2) Panic attacks: Status: Acute Code(s): F41.0 - Panic disorder [episodic paroxysmal anxiety] (3) 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 Counseling provided to the patient/caregiver as outlined below. Addressed patient/caregiver concerns regarding current medication regime including effective adherence. Addressed patient/caregiver concerns regarding diagnosis and prognosis including accuracy of diagnosis, prognosis over time, impact of diagnosis. Addressed patient/caregiver concerns regarding impact of recent stressors. [facility] Medical History Menopause Routine medical exam Bipolar affective, mixed, severe Akathisia Panic attacks Anxiety No known health problems Social History Household Members: Spouse Household Members Other:: Housing: House Are you a primary vocational childcare teacher to a significant other at home: No Do you presently have visiting nurse or other home services: No Alcohol intake: current Alcohol intake frequency: does not drink Alcohol type: wine Patient Tobacco Use Status: Never used Tobacco e-Cigarette/Vaping Use: Never Used Second Hand Smoke Exposure: No service: No Sexual orientation: Straight/Heterosexual Social History: LIves at home with Has 2 adult children ages 28 and 25 Works as a paraprofessional at an elementary school, currently on leave from work since 12/12 Tried to return to work unable to function Substance History: na Trauma History: denies Coding Level of Care Code Est Pt Level 4 (80566) Diagnoses Other anxiety states F41.1 Panic attacks F41.0 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
== END 2024-06-02 17:08 | disposition home or self-care (01) ==
LOC: HO.HOP 15:04
PROVIDERS: PCP Internal Medicine; Visit Provider Psychiatry & Neurology Psychiatry
DX: F41.1 Generalized anxiety disorder (principal); F41.0 Panic disorder [episodic paroxysmal anxiety]; F06.30 Mood disorder due to known physiological condition, unspecified
CPT/HCPCS: 99214

== ENCOUNTER → 2024-06-02 15:04 | Outpatient (BNVA) | payer BC, SELFPAY | PROVIDERS: PCP Internal Medicine; Visit Provider Psychiatry & Neurology Psychiatry ==

== ENCOUNTER 2024-06-13 05:57 | Day surgery (SDC) | payer BC, SELFPAY ==
[2024-06-13 06:37] VITALS: BP 90/64; PULSE 78; RESP 12; TEMP 36.6; O2SAT 100; BMI 18.1
[2024-06-13] MEDS: Lactated Ringers 1,000 ML 100 ML IVCONT (06:48)
--- NOTE | 2024-06-13 07:00 | P.CONAN_ITS ---
[facility] Active Problems Active Problems: All Active Problems Bipolar 1 disorder, depressed, severe (Acute) Cognitive and behavioral changes (Acute) Other anxiety states (Acute) Bipolar affective, mixed, severe (Acute) Akathisia (Acute) Panic attacks (Acute) Anxiety (Acute) Past Medical History Medical History (Updated 04/07/24 @ 06:50 by Krystle Swanson RN) Menopause Routine medical exam Bipolar affective, mixed, severe Akathisia Panic attacks Anxiety No known health problems Family History Family history of problems with anesthesia: No Surgical History History of Problems with Anesthesia: No Social History Social History Household Members: Spouse Household Members Other:: Housing: House Are you a primary direct care staffer to a significant other at home: No Do you presently have visiting nurse or other home services: No Alcohol intake: current Alcohol intake frequency: does not drink Alcohol type: wine Patient Tobacco Use Status: Never used Tobacco e-Cigarette/Vaping Use: Never Used Second Hand Smoke Exposure: No Advance Directives: No Advance Directives Information Provided: Yes service: No Sexual orientation: Straight/Heterosexual Meds Allergies Allergy/AdvReac Type Severity Reaction Status Date / Time No Known Allergies Allergy Verified 03/11/24 14:49 Active Medications: Current Medications Lactated Ringer's (Lr) 1,000 mls @ 100 mls/hr IVCONT .Q10H GREYSON Last Admin: 06/13/24 06:48 Dose: 100 mls/hr Naloxone HCl (Naloxone Hcl 0.4 Mg/Ml Vial) 0.04 mg IVPUSH Q5M PRN PRN Reason: Excessive sedation or RR < 8 Home Medications ?Medication ?Instructions ?Recorded ?Confirmed ?Last Taken ?Type estradiol 0.0375 mg/24 hr 1 patch topical 2XW 03/11/24 03/11/24 03/11/24 History semiweekly transdermal patch progesterone micronized 100 mg 100 mg PO DAILY 03/11/24 03/11/24 03/11/24 History capsule mirtazapine 15 mg tablet 15 mg PO BEDTIME 06/02/24 06/02/24 Unknown History Exam Height,Weight and Vital Signs: Height 5 ft 6 in Weight 50.802 kg Last Vital Signs Temp 97.8 F 06/13/24 06:37 Pulse 78 11/01/24 06:37 Resp 12 06/13/24 06:37 BP 90/64 06/13/24 06:37 Pulse Ox 100 06/13/24 06:37 O2 Del Method Room Air 06/13/24 06:37 Airway Mallampati Class: II TM Dist: >3cm Neck ROM: Full Heart: rrr Lungs: cta Assessment and Plan Assessment Anesthesia Assessment: Anesthesia Plan Discussed and Chart Reviewed Final Anesthetic Review Family History of Problems with Anesthesia: No History of Problems with Anesthesia: No NPO: Yes ASA Class: III Final Preanesthetic Review: No Changes in Pt Med Stat, Meds/Allgs Chart Reviewed and Consent Obtained/Reviewed Patient Risk: Low Procedure Risk: Intermediate Anesthetic Plan Anesthetic Plan: GA Disposition: Standard PACU
--- NOTE | 2024-06-13 07:48 | MHC.SHP ---
Pre-Procedural Eval Section A - 24 Hr Update-Section A only Date of Service: 06/13/24 Section B - Complete if H&P > 30 days Chief Complaint: Major depressive disorder, recurrent, mixed anxiet Details of Present Illness: agitated mood state has responded to ect. pt back at work mood improved some anxiety Relevant Social History: None Present Medications: see Short Stay Collaborative assessment History of Previous Operations: Relevant previous surgery/procedure and date(s) (ect) Allergies: Allergies Allergy/AdvReac Type Severity Reaction Status Date / Time No Known Allergies Allergy Verified 03/11/24 14:49 Review of Systems Sugical H&P ROS: Negative: Cardiovascular, Respiratory and Neurological and Yes, Specify: Psychiatric (anxiety sx) Exam Surgical H&P Exam: Normal: Heart, Normal: Lungs and Normal: Neurological Exam Comment: feels better with ect Plan Diagnosis/Plan: Unchanged I have reviewed the history and physical and performed a pertinent physical examination on my patient. No changes have occurred unless specified. Time Spent With Patient Time: Total time managing care of this patient today ____ minutes.
[2024-06-13 08:08] VITALS: BP 121/78; PULSE 68; RESP 16; TEMP 36.4; O2SAT 100
--- NOTE | 2024-06-13 08:09 | HO.ECTPROC ---
ECT Procedure Note Diagnosis/Treatment Date of Service: 06/13/24 Diagnosis: Bipolar disorder Previous ECT Date: 05/26/24 Treatment: Maintenance Interval Clinical Notes: The patient has had some inc anxiety does better with ect working ft mirtazapine inc 30 mg will try for 3 wks confidence gradually improving Time: Total time managing care of this patient today ____ minutes. ECT Settings Device: THYMATRON DGx Electrode Placement: Right Unilateral Program/Pulse Width: 0.25 Energy Percent: 70 Seizure Duration By EEG (in seconds): 56 Medications Administration General Anesthetic: Etomidate (14) Muscle Relaxant: Succinylcholine (80) Ancillary Medications Analgesics: Torodol - Pre ECT Anti-emetics: Zofran - Pre ECT Miscillaneous Medications: Midazolam (2 mg post ECT) Airway Management Airway Management: Bag Mask Ventilation Treatment Recommendations No Changes Recommended: No change Pt Tolerated Procedure w/o Issue: Yes
[2024-06-13 08:13] VITALS: BP 99/66; PULSE 79; RESP 16; O2SAT 100
[2024-06-13 08:18] VITALS: BP 101/70; PULSE 91; RESP 16; O2SAT 100
[2024-06-13 08:23] VITALS: BP 99/75; PULSE 90; RESP 17; O2SAT 100
[2024-06-13 08:38] VITALS: BP 104/66; PULSE 89; RESP 16; TEMP 36.4; O2SAT 100
== END 2024-06-13 09:00 | disposition home or self-care (01) ==
PROVIDERS: PCP Internal Medicine; Visit Provider Psychiatry & Neurology Psychiatry
PROC: (CPT 90870; principal; 2024-06-13 08:00)
DX: F31.63 Bipolar disorder, current episode mixed, severe, without psychotic features (principal); F41.3 Other mixed anxiety disorders; F41.0 Panic disorder [episodic paroxysmal anxiety]; G25.71 Drug induced akathisia; Z79.899 Other long term (current) drug therapy
CPT/HCPCS: 90870; J0330; J1596; J1805; J1885; J2250; J2405; J2704

== ENCOUNTER → 2024-06-13 05:57 | Outpatient (BNV) | payer BC, SELFPAY | PROVIDERS: PCP Internal Medicine; Visit Provider Psychiatry & Neurology Psychiatry | DX: F33.2 Major depressive disorder, recurrent severe without psychotic features (principal) | CPT/HCPCS: 90870 ==

== ENCOUNTER 2024-07-04 05:56 | Day surgery (SDC) | payer BC, SELFPAY ==
[2024-07-04 06:31] VITALS: BMI 18.1
--- NOTE | 2024-07-04 06:42 | P.CONAN_ITS ---
[facility] Active Problems Active Problems: All Active Problems Bipolar 1 disorder, depressed, severe (Acute) Cognitive and behavioral changes (Acute) Other anxiety states (Acute) Bipolar affective, mixed, severe (Acute) Akathisia (Acute) Panic attacks (Acute) Anxiety (Acute) Past Medical History Medical History (Updated 04/07/24 @ 06:50 by Krystle Swanson RN) Menopause Routine medical exam Bipolar affective, mixed, severe Akathisia Panic attacks Anxiety No known health problems Family History Family history of problems with anesthesia: No Surgical History History of Problems with Anesthesia: No Social History Social History Household Members: Spouse Household Members Other:: Housing: House Are you a primary assistant child care teacher to a significant other at home: No Do you presently have visiting nurse or other home services: No Alcohol intake: current Alcohol intake frequency: does not drink Alcohol type: wine Patient Tobacco Use Status: Never used Tobacco e-Cigarette/Vaping Use: Never Used Second Hand Smoke Exposure: No Advance Directives: No Advance Directives Information Provided: Yes service: No Sexual orientation: Straight/Heterosexual Meds Allergies Allergy/AdvReac Type Severity Reaction Status Date / Time No Known Allergies Allergy Verified 03/11/24 14:49 Home Medications ?Medication ?Instructions ?Recorded ?Confirmed ?Last Taken ?Type estradiol 0.0375 mg/24 hr 1 patch topical 2XW 03/11/24 03/11/24 03/11/24 History semiweekly transdermal patch progesterone micronized 100 mg 100 mg PO DAILY 03/11/24 03/11/24 03/11/24 History capsule mirtazapine 15 mg tablet 15 mg PO BEDTIME 06/02/24 06/02/24 Unknown History Exam Height,Weight and Vital Signs: Height 5 ft 6 in Weight 50.802 kg Airway Mallampati Class: II TM Dist: >3cm Neck ROM: Full Heart: rrr Lungs: cta Assessment and Plan Assessment Anesthesia Assessment: Anesthesia Plan Discussed and Chart Reviewed Final Anesthetic Review Family History of Problems with Anesthesia: No History of Problems with Anesthesia: No NPO: Yes ASA Class: III Final Preanesthetic Review: No Changes in Pt Med Stat, Meds/Allgs Chart Reviewed and Consent Obtained/Reviewed Patient Risk: Low Procedure Risk: Intermediate Anesthetic Plan Anesthetic Plan: GA Disposition: Standard PACU
[2024-07-04] MEDS: Lactated Ringers 1,000 ML 50 ML IVCONT (06:44)
--- NOTE | 2024-07-04 07:00 | MHC.SHP ---
Pre-Procedural Eval Section A - 24 Hr Update-Section A only Date of Service: 07/04/24 The patient is an INPATIENT: No Changes since office visit: No Cold of Flu in the past 2 weeks, No New Medical Problems, No Changes in Medication and No Patient answered all questions The patient has been examined within 24 hours of the surgical procedure. The History & Physical has been completed within 30 days and I have reviewed it.: Yes Section B - Complete if H&P > 30 days Chief Complaint: depression Details of Present Illness: The patient reported mostly anxiety at AM, no major changes on her mental status Relevant Family History (Specify if Yes): Yes Relevant Social History: None Present Medications: see Short Stay Collaborative assessment Medical History: No relevant PMH History of Previous Operations: No relevant previous surgery Allergies: Allergies Allergy/AdvReac Type Severity Reaction Status Date / Time No Known Allergies Allergy Verified 03/11/24 14:49 Review of Systems Sugical H&P ROS: Negative: Constitution, Cardiovascular, Respiratory, Neurological, Psychiatric, Hem-Onc, Allergic/Immunologic, Gastrointestinal, Genitourinary, Musculoskeletal, Integumentary, Endocrine and Eyes/Ears/Nose/Throat Exam Surgical H&P Exam: Normal: HEENT, Normal: Heart, Normal: Lungs, Normal: Extremities, Normal: Abdomen, Normal: Skin and Normal: Neurological Plan Diagnosis/Plan: Unchanged I have reviewed the history and physical and performed a pertinent physical examination on my patient. No changes have occurred unless specified. Time Spent With Patient Time: Total time managing care of this patient today __15__ minutes.
--- NOTE | 2024-07-04 07:10 | P.CONAN_ITS ---
[facility] Active Problems Active Problems: All Active Problems Bipolar 1 disorder, depressed, severe (Acute) Cognitive and behavioral changes (Acute) Other anxiety states (Acute) Bipolar affective, mixed, severe (Acute) Akathisia (Acute) Panic attacks (Acute) Anxiety (Acute) Past Medical History Medical History Menopause Routine medical exam Bipolar affective, mixed, severe Akathisia Panic attacks Anxiety No known health problems Family History Family history of problems with anesthesia: No Surgical History History of Problems with Anesthesia: No Social History Social History Household Members: Spouse Household Members Other:: Housing: House Are you a primary health care law specialist to a significant other at home: No Do you presently have visiting nurse or other home services: No Alcohol intake: current Alcohol intake frequency: does not drink Alcohol type: wine Patient Tobacco Use Status: Never used Tobacco e-Cigarette/Vaping Use: Never Used Second Hand Smoke Exposure: No Advance Directives: No Advance Directives Information Provided: Yes service: No Sexual orientation: Straight/Heterosexual Meds Allergies Allergy/AdvReac Type Severity Reaction Status Date / Time No Known Allergies Allergy Verified 03/11/24 14:49 Active Medications: Current Medications Lactated Ringer's (Lr) 1,000 mls @ 50 mls/hr IVCONT .Q20H GREYSON Last Admin: 07/04/24 06:44 Dose: 50 mls/hr Naloxone HCl (Naloxone Hcl 0.4 Mg/Ml Vial) 0.04 mg IVPUSH Q5M PRN PRN Reason: Excessive sedation or RR < 8 Home Medications ?Medication ?Instructions ?Recorded ?Confirmed ?Last Taken ?Type estradiol 0.0375 mg/24 hr 1 patch topical 2XW 03/11/24 03/11/24 03/11/24 History semiweekly transdermal patch progesterone micronized 100 mg 100 mg PO DAILY 03/11/24 03/11/24 03/11/24 History capsule mirtazapine 15 mg tablet 15 mg PO BEDTIME 06/02/24 06/02/24 Unknown History Exam Height,Weight and Vital Signs: Height 5 ft 6 in Weight 50.802 kg Airway Mallampati Class: II TM Dist: >3cm Neck ROM: Full Loose/Missing/Broken Teeth: No Heart: RRR Lungs: CTA Assessment and Plan Assessment Anesthesia Assessment: Anesthesia Plan Discussed and Chart Reviewed Final Anesthetic Review Family History of Problems with Anesthesia: No History of Problems with Anesthesia: No NPO: Yes ASA Class: II Final Preanesthetic Review: Meds/Allgs Chart Reviewed, Consent Obtained/Reviewed and Anes Risks/Benef Reviewed Patient Risk: Low Procedure Risk: Intermediate Anesthetic Plan Anesthetic Plan: GA Disposition: Standard PACU
--- NOTE | 2024-07-04 07:36 | HO.ECTPROC ---
ECT Procedure Note Diagnosis/Treatment Date of Service: 07/04/24 Diagnosis: Bipolar disorder Previous ECT Date: 06/13/24 Treatment: Maintenance Interval Clinical Notes: The patient reported stable mood but very anxious. She denies side effects with previous ECT. ECT done as usual, no complications, she had a very long seizure even though that she had Ativan 0.5 mg last night. Woke up well, no complications. Time: Total time managing care of this patient today ____ minutes. ECT Settings Device: THYMATRON DGx Electrode Placement: Right Unilateral Program/Pulse Width: 0.25 Energy Percent: 70 Seizure Duration By EEG (in seconds): 87 By Motor Observation (in seconds): 42 Medications Administration General Anesthetic: Etomidate (14) Muscle Relaxant: Succinylcholine (80) Airway Management Airway Management: Bag Mask Ventilation Treatment Recommendations No Changes Recommended: No change Pt Tolerated Procedure w/o Issue: Yes
[2024-07-04 07:43] VITALS: BP 105/75; PULSE 68; RESP 18; TEMP 36.6; O2SAT 100
[2024-07-04 07:48] VITALS: BP 116/76; PULSE 87; RESP 18; TEMP 36.6; O2SAT 98
[2024-07-04 07:53] VITALS: BP 119/85; PULSE 91; RESP 18; TEMP 36.6; O2SAT 99
[2024-07-04] MEDS: LORazepam 2 MG/ML VIAL 0.5 MG IVPUSH (07:57)
[2024-07-04 07:58] VITALS: BP 115/79; PULSE 80; RESP 18; TEMP 36.6; O2SAT 95
[2024-07-04 08:13] VITALS: BP 108/73; PULSE 77; RESP 18; O2SAT 100
== END 2024-07-04 09:05 | disposition home or self-care (01) ==
PROVIDERS: PCP Internal Medicine; Visit Provider Psychiatry & Neurology Psychiatry
PROC: (CPT 90870; principal; 2024-07-04 07:00)
DX: F31.4 Bipolar disorder, current episode depressed, severe, without psychotic features (principal); F41.0 Panic disorder [episodic paroxysmal anxiety]; G25.71 Drug induced akathisia; F41.9 Anxiety disorder, unspecified; Z79.899 Other long term (current) drug therapy
CPT/HCPCS: 90870; J0330; J1885; J2060; J2405

== ENCOUNTER → 2024-07-04 05:56 | Outpatient (BNV) | payer BC, SELFPAY | PROVIDERS: PCP Internal Medicine; Visit Provider Psychiatry & Neurology Psychiatry | DX: F33.3 Major depressive disorder, recurrent, severe with psychotic symptoms (principal) | CPT/HCPCS: 90870 ==

== ENCOUNTER 2024-07-30 05:56 | Day surgery (SDC) | payer BC, SELFPAY ==
--- OUTSIDE RECORDS SUMMARY | 2024-07-24 02:32 | XMS_ITS | Continuity of Care Document ---
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 REVIEW OF PRIOR EXTERNAL NOTES/RESULTS, ORDERING OF TEST(S) CATEGORY 2. ASSESSMENT REQUIRING INDEPENDENT HISTORIAN(S) INCLUDE WHO THE HISTORIAN IS AND RELATION TO PT AND WHY PT IS UNABLE TO GIVE COMPLETE HISTORY ELEMENT 3: RISK (LOW) RISK OF COMPLICATIONS AND/OR MORBIDITY OR MORTALITY OF PATIENT MANAGEMENT PROVIDER MUST THOROUGHLY DOCUMENT ALL OF THE ELEMENTS COVERED .p [email or web address] Not available 05/12/2024 15:40:35 Plan of Treatment Reminders Order Date Submit Date Provider Last Modified By Organization Details Last Modified Time Details Appointments None record ed. Lab None record ed. Referral None record ed. Procedures None record ed. Surgeries None record ed. Imaging None record ed. Medication Orders None record ed. Patient TargetsNo targets recorded. Patient InstructionsNo instructions recorded. Reason for Referral None Reported. Problems Name Problem SNOMED Code Status Onset Date Resolution Date Notes Provider Name and Address Organization Details Recorded Time Anxiety 93718314 Active 2017 Not Available [facility] 15:48:18 Colorectal cancer detected by DNA-based stool screening 742093584 Active 2021 MARQUIS GARCIA [address] [place], [address] , [facility] Internal [facility] 2 09:50:42 Influenza-lik e symptoms 813207024 Active 2022 MARQUIS GARCIA [address],[place], [address] , [facility] 3 10:43:43 Menopause Active 2022 MARQUIS GARCIA [address],[place], [address] , [facility] 3 09:50:48 Panic attack 826956842 Active 2022 MARQUIS GARCIA [address],[place], [address] , [facility] 3 10:57:41 Restlessness and agitation 496587989 Active 2023 MARQUIS GARCIA [address],[place], [address] , [facility] 4 16:21:19 Acute urinary tract infection 679014898 Active 2023 MARQUIS GARCIA [address],[place], [address] , [facility] 4 12:25:28 Bipolar disorder 62058275 Active 2023 MARQUIS GARCIA [address],[place], [address] , [facility] 4 15:34:50 Problem Notes None recorded. Procedures Surgical History Date Name Laterality Status Provider Name and Address Organization Details Recorded Time 8 Most Recent Mammogram completed [facility] 06/11/2019 08:15:51 1 Date of Last Pap Smear completed [facility] 06/11/2019 08:24:48 Remove tonsils and adenoids completed November LLOYD Orellana [address],[place], [address], [facility] Internal [facility] 06/11/2019 15:57:52 Imaging Results None recorded. Procedure Notes None recorded. Medical Equipment None Reported. Allergies No known drug allergies Medications Name Sig Start Date Stop Date Status Note LastModified by Organization Details LastModified Time quetiapine 25 mg tablet TAKE 1 TABLET BY MOUTH DAILY NEEDED FOR ANXIETY 05/12 completed Not Available Not Available Not Available prednisone 10 mg tablet 40 mg x 2 days30 mg x 2 days20 mg x 2 days10 mg x 2 days 08/10 completed Not Available Not Available Not Available doxycycline hyclate 100 mg capsule Take 1 capsule twice a day by oral route for 7 days. 06/11 completed Not Available Not Available Not Available paroxetine 10 mg tablet TAKE 1 TABLET BY MOUTH DAILY 05/12 completed Not Available Not Available Not Available benztropine 0.5 mg tablet TAKE 1 TABLET BY MOUTH DAILY AT BEDTIME 05/12 completed Not Available Not Available Not Available divalproex 250 mg tablet,heriberto yed release TAKE 1 TABLET BY MOUTH DAILY AT BEDTIME 05/12 completed Not Available Not Available Not Available clonazepam 0.5 mg tablet TAKE 1 TABLET BY MOUTH 1 TIME A DAY IN THE MORNING 05/12 completed Not Available Not Available Not Available olanzapine 5 mg tablet TAKE 1 TABLET BY MOUTH EVERY DAY AT BEDTIME 01/10 completed Not Available Not Available Not Available clonazepam 1 mg tablet TAKE 1 TABLET BY MOUTH 1 TIME A DAY AT BEDTIME 05/12 completed Not Available Not Available Not Available olanzapine 10 mg tablet TAKE 1 TABLET BY MOUTH AT BEDTIME 05/12 completed Not Available Not Available Not Available hydralazine 25 mg tablet TAKE 1 TABLET BY MOUTH THREE TIMES DAILY NEEDED FOR ANXIETY 08/21 completed Not Available Not Available Not Available sulfamethox azole 800 mg-trimetho prim 160 mg tablet TAKE 1 TABLET BY MOUTH EVERY 12 HOURS FOR 10 DAYS 01/10 completed Not Available Not Available Not Available olanzapine 2.5 mg tablet TAKE 1 TABLET BY MOUTH DAILY AT BEDTIME 01/10 completed Not Available Not Available Not Available olanzapine 7.5 mg tablet TAKE 1 TABLET BY MOUTH DAILY AT BEDTIME 01/10 completed Not Available Not Available Not Available quetiapine 100 mg tablet TAKE 1 TABLET BY MOUTH DAILY AT BEDTIME 05/12 completed Not Available Not Available Not Available lamotrigine 25 mg tablet TAKE 3 TABLETS BY MOUTH 1 TIME A DAY 01/10 completed Not Available Not Available Not Available propranolol 10 mg tablet TAKE 1-2 TABLETS BY MOUTH THREE TIMES DAILY NEEDED FOR ANXIETY 05/12 completed Not Available Not Available Not Available lorazepam 0.5 mg tablet TAKE 1 TABLET BY MOUTH TWICE DAILY active Not Available Not Available No t Available clindamycin 1 % topical gel 06/11 completed Not Available Not Available Not Available paroxetine 20 mg tablet TAKE 1 TABLET BY MOUTH DAILY IN THE MORNING 01/10 completed Not Available Not Available Not Available oseltamivir 75 mg capsule TAKE 1 CAPSULE BY MOUTH TWICE DAILY FOR 5 DAYS 08/10 completed Not Available Not Available Not Available minocycline 50 mg capsule 06/11 completed Not Available Not Available Not Available sertraline 25 mg tablet TAKE 1 TABLET BY MOUTH DAILY AT BEDTIME. START ON Sunday01/31/2405/12 completed Not Available Not Available Not Available buspirone 7.5 mg tablet TAKE 1 TABLET BY MOUTH TWICE DAILY 05/12 completed Not Available Not Available Not Available hydroxyzine HCl 25 mg tablet TAKE 1 TABLET BY MOUTH AT BEDTIME 05/12 completed Not Available Not Available Not Available mirtazapine 15 mg tablet TAKE 1 TABLET BY MOUTH 1 TIME A DAY AT BEDTIME active Not Available Not Available No t Available ergocalcife rol (vitamin D2) 1,250 mcg (50,000 unit) capsule TAKE 1 CAPSULE BY MOUTH ONE TIME PER WEEK 01/10 completed Not Available Not Available Not Available lorazepam 1 mg tablet TAKE 1 TABLET BY MOUTH 2 TIMES A DAY IN THE MORNING AND AFTERNOON . AND TAKE ONE-HALF TABLET BY MOUTH EVERY NIGHT AT BEDTIME active Not Available Not Available No t Available paroxetine 40 mg tablet TAKE 1 TABLET BY MOUTH EVERY DAY 01/10 completed Not Available Not Available Not Available estradiol 0.0375 mg/24 hr semiweekly transdermal patch APPLY 1 PATCH TOPICALLY TO THE SKIN 2 TIMES A WEEK active Not Available Not Available No t Available risperidone 1 mg tablet TAKE 1 TABLET BY MOUTH TWICE DAILY 05/12 completed Not Available Not Available Not Available lamotrigine 100 mg tablet TAKE 1 TABLET BY MOUTH DAILY. START TAKING THIS INCREASED DOSE ON 11/15/2301/10 completed Not Available Not Available Not Available progesteron e micronized 100 mg capsule active Not Available Not Available Not Available aripiprazol e 5 mg tablet TAKE 1 TABLET BY MOUTH DAILY IN THE MORNING 05/12 completed Not Available Not Available Not Available escitalopra m 5 mg tablet 05/12 completed Not Available Not Available Not Available mirtazapine 7.5 mg tablet TAKE 1 TABLET BY MOUTH 1 TIME A DAY AT BEDTIME active Not Available Not Available No t Available Boostrix Tdap 2.5 Lf unit-8 mcg-5 Lf/0.5 mL intramuscul ar syringe 04/09 completed Not Available Not Available Not Available quetiapine 50 mg tablet TAKE 1/2 TABLET BY MOUTH EVERY DAY AT BEDTIME 08/28 completed Not Available Not Available Not Available Gavilyte-C 240 gram-22.72 gram-6.72 gram-5.84 gram oral solution TAKE 8 OUNCE BY MOUTH DIRECTED FOLLOW DIRECTION S GIVEN BY DOCTORS OFFICE 01/29 completed Not Available Not Available Not Available Vienva 0.1 mg-20 mcg tablet TAKE 1 TABLET BY MOUTH DAILY. SKIP PLACEBO 01/29 completed Not Available Not Available Not Available Afluria 2825-3436 (PF) 45 mcg(15 mcg x 3)/0.5 mL intramuscul ar syringe 04/09 completed Not Available Not Available Not Available Afluria Quad 9075-1000 (PF) 60 mcg (15 mcg x 4)/0.5 mL IM syringe 06/11 completed Not Available Not Available Not Available Afluria Qd 2018- (36 mos up)(PF)60 mcg (15 mcg x4)/0.5 mL IM syringe 06/11 completed Not Available Not Available Not Available Fluarix Quad (PF) 60 mcg (15 mcg x 4)/0.5 mL IM syringe ADM 0.5ML IM UTD 01/28 completed Not Available Not Available Not Available Vitals Date Recorded Body height Body mass index (BMI) Body weight Heart rate Oxygen saturation Oxygen saturation in Arterial blood by Pulse oximetry Systolic blood pressure Diastolic blood pressure Provider Name and Address Organization Details Last Updated DateTime 4 170.18 cm 17.2 kg/m2 12167.1 6 g 94 /min 97 % 97 % 130 mm[Hg] 68 mm[Hg] [facility] 4 15:18:57 Social History Question Answer Notes LastModified by Organizat ion Details LastModified Time Tobacco Smoking Status Never Smoker Not Available [facility] 06/15/2020 03:36:24 Do You Or Have You Ever Used E-cigarettes Or Vape? Never Used Electronic Cigarettes [id number] Information not available 06/15/2020 What Was The Date Of Your Most Recent Tobacco Screening? 05/12/2024 [email or web address] Information not available 05/12/2024 Do You Or Have You Ever Used Smokeless Tobacco? Never Used Smokeless Tobacco [id number] Information not available 06/15/2020 How Much Tobacco Do You Smoke? No [id number] Information not available 06/15/2020 How Many Years Have You Smoked Tobacco? 0 [id number] Information not available 06/15/2020 Do You Or Have You Ever Used Any Other Forms Of Tobacco Or Nicotine? No [email or web address] Information not available 05/12/2024 Sex: Unknown Functional Status None recorded. Mental Status None recorded. Family History Relationship Description Onset Age of this Age Resolved Age Notes LastModified by Organization Details LastModified Time Paternal Grandfather Heart disease [email or web address] Not available 06/11 15:56:50 Mother Malignant tumor of lung smoker [email or web address] Not available 2023 14:56:58 Medical History No medical history recorded. Gynecological History Statement/Question Response Date of Last Pap Smear 09/06/2010 Most Recent Mammogram 04/22/2018 Obstetrics History GPAL:G 2 P 2 0 0 0 Type Value Full Term 2 Total 2 Immunizations Vaccine Type Date Status Note Provider Nam e and Address Organization Details Recorded Time COVID-19, mRNA, LNP-S, PF, 30 mcg/0.3 mL dose 1 completed MARQUIS GARCIA [address] [place], [address], [facility] 06/26/2021 18:44:50 Influenza, split virus, quadrivalent, preservative 8 completed Zakia ames [facility] 05/22/2018 10:05:48 Influenza, split virus, quadrivalent, preservative 10/04/201 9 completed November LLOYD Orellana [address] [facility],[place], [address], [facility] 06/11/2019 15:51:30 Tdap 7 completed November MALCOLM Orellana[address],[facility] [place], [address], [facility] 04/09/2018 11:19:19 Past Encounters Encounter ID Performer Location Encounter Start Date Encounter Closed Date Diagnosis/Indication Diagnosis SNOMED-CT Code Diagnosis ICD10 Code [id number] Nitesh Dawson [facility]t [facility] [address] [address] [facility] [place] [address] 05/12/2024 14:56:47 05/12/2024 15:45:14 Pre-surgery evaluation 544618632 Z01.818 Health Concerns Section Related Observation LastModified by Organization Detai ls LastModified Time None Recorded Concern Status LastModified by Organization Details LastModified Time None Recorded Payers Encounter Date Sequence Insurance Name Policy Number Policy Martinez Covered Member ID Martinez Member ID Guarantor Name 05/12/2024 1 [place] [id number] Vicki Contreras [id number] Vicki Contreras Notes Date Note Type Note Provider Name and Address Organization Details Recorded Time 05/12/2024 text/html here for rechk a nd is in need of medical clearancehas been getting ECT therapy and requires clearance to go further Nitesh Rosenberg DO [address] [place] [address] [place], [address], [facility] 05/12/2024 15:42:16 OBGyn Episode No OBEpisode recorded.
--- OUTSIDE RECORDS SUMMARY | 2024-07-24 02:32 | XMS_ITS | Data Portability ---
Author Organization [facility] Home Service Address [address] [place] [address] Assessment Encounter Date Assessment Date Assessment LastModified by Organization Details LastModified Time 08/10/2023 08/10/2023 Patient agreed and verbally consents to this audio and video Telehealth appt via a secure platform [email or web address] Not available 08/10/2023 10:58:05 08/21/2023 08/21/2023 The patient is participating in this appointment via telemedicine communication with a phone call/video calling service (readeo) The patient consents to use of these platforms in place of an in-person appointment due to either sick symptoms the patient is presenting with or current office closure due to COVID exposure in order to keep our office staff and patients safe [email or web address] Not available 08/21/2023 16:41:10 08/28/2023 08/28/2023 Patient agreed and verbally consents to this audio and video Telehealth appt via a secure platform [email or web address] Not available 08/28/2023 14:09:09 05/12/2024 05/12/2024 [id number] [place]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 Lab TSH + free T4, serum 2023 [facility], [place], [address], 4 11:34:45 vitamin B12 + folate, serum or blood 2023 024 [facility], [place], [address], 4 11:34:45 ESR (erythrocy te sedimentat ion rate), blood 2023 024 [facility], [place], [address], 4 14:25:15 C reactive protein, QN, serum or plasma 2023 024 [facility], [place], [address], 4 14:25:15 GIBSON + rf (antinucle ar antibodies + rheumatoid factor), quantitati ve, serum 2023 024 [facility] [address], [address], 4 11:25:57 cortisol, serum or plasma 2023 024 [facility] [address], [address], 4 14:26:47 PTH (parathyro id hormone), intact, serum or plasma 2023 024 [facility], [place], [address], 4 14:25:15 CMP, serum or plasma 2023 024 [facility], [place], [address], 4 11:34:45 Referral None recorded. Procedures None recorded. Surgeries None recorded. Imaging None recorded. Medication Orders lorazepam 0.5 mg tablet 2022 024 [email or web address] [employer] [facility] #14785, [address], [place], [id number], 4 15:08:04 paroxetine 10 mg tablet [email or web address] [place] [address] [employer] [facility] #93347, [address], [place], [id number], 4 15:15:06 lorazepam 1 mg tablet 2023 024 [facility] [employer] #72011, [address], [place], [id number], 4 15:08:08 Seroquel 25 mg tablet 2023 024 [facility] [employer] [facility] #75107, [address], [place], [id number], 4 15:15:35 lorazepam 0.5 mg tablet 2023 024 [facility] [employer] #89291, [address], [place], [id number], 4 15:08:04 hydroxyzin e HCl 25 mg tablet 2023 024 [facility] [employer] [facility] #99922, [address], [place], [id number], 4 15:16:31 Patient TargetsNo targets recorded. Patient InstructionsNo instructions recorded. Reason for Referral None Reported. Results Created Date Observation Date Name Description Value Unit Range Abnormal Flag Note LastModifiedBy Organization Detail LastModifiedTime 03/11/20 24 03/11/2024 CT, head, w/o contr ast No observ ation record ed. [facility] (Medical Records) [address] [place], [address], 03/12/2024 08:51:04 Result Notes None recorded. Problems Name Problem SNOMED Code Status Onset Date Resolution Date Notes Provider Name and Address Organization Details Recorded Time Anxiety 11303908 Active 2017 Not Available [employer] 1 15:48:18 Colorectal cancer detected by DNA-based stool screening 716611970 Active 2021 MARQUIS GARCIA [address],[place], [address] , [facility] 2 09:50:42 Influenza-lik e symptoms 259980256 Active 2022 MARQUIS GARCIA [address],[place], [address] , [facility] 3 10:43:43 Menopause Active 2022 MARQUIS GARCIA [address],[place], [address] , [facility] 3 09:50:48 Panic attack 039736817 Active [address],[place], [address] , [facility] 3 10:57:41 Restlessness and agitation 993226310 Active 2023 MARQUIS GARCIA [address],[place], [address] , [facility] 4 16:21:19 Acute urinary tract infection 021916862 Active 2023 MARQUIS GARCIA [address],[place], [address] , [facility] 4 12:25:28 Bipolar disorder 07669254 Active 2023 MARQUIS GARCIA [address] [facility],[address], [place], [address] , [facility] 15:34:50 Problem Notes None recorded. Procedures Surgical History Date Name Laterality Status Provider Name and Address Organization Details Recorded Time 8 Most Recent Mammogram completed [facility] 06/11/2019 08:15:51 1 Date of Last Pap Smear completed [facility] 06/11/2019 08:24:48 Remove tonsils and adenoids completed November LLOYD Orellana 6 [facility], [place], [address], [facility] 06/11/2019 15:57:52 Imaging Results Imaging Date Name Status LastModified by Organiz ation Details LastModified Time 03/11/2024 CT, head, w/o contrast completed [facility] (Medical Records) [address] [place] [address], [address], 03/12/2024 08:51:04 Procedure Notes None recorded. Medical Equipment None [...] Not Available Not Available Not Available Afluria (PF) 45 mcg(15 mcg x 3)/0.5 mL intramuscul ar syringe 04/09 completed Not Available Not Available Not Available Afluria Quad (PF) 60 mcg (15 mcg x [...] Details Last Updated DateTime 4 170.18 cm 18 kg/m2 95748.4 g 87 /min 98 % 98 % 110 mm[Hg] 70 mm[Hg] Roxanne Soriano [facility] 4 15:09:24 Date Recorded Body height Body mass index (BMI) Body weight Heart rate Oxygen saturation Oxygen saturation in Arterial blood by Pulse oximetry Systolic blood pressure Diastolic blood pressure Provider Name and Address Organization Details Last Updated DateTime 4 170.18 cm 17.2 kg/m2 09450.1 6 g 94 /min 97 % 97 % 130 mm[Hg] 68 mm[Hg] Nishi Ortega [facility] 4 15:18:57 Social History Question Answer Notes LastModified by Organizat ion Details LastModified Time Tobacco Smoking Status Never Smoker Not Available [employer] 06/15/2020 03:36:24 Do You Or Have You Ever Used E-cigarettes Or Vape? Never Used Electronic Cigarettes [id number] Information not available 06/15/2020 What Was The Date Of Your Most Recent Tobacco Screening? 05/12/2024 [email or web address] Information not available 05/12/2024 Do You Or Have You Ever Used Smokeless Tobacco? Never Used Smokeless Tobacco [id number] Information not available 06/15/2020 How Much Tobacco Do You Smoke? No [id number] Information not available 06/15/2020 How Many Years Have You Smoked Tobacco? 0 [id number] Information not available 06/15/2020 Do You Or Have You Ever Used Any Other Forms Of Tobacco Or Nicotine? No [email or web address] Information not available 05/12/2024 Sex: Unknown Functional [...] mcg/0.3 mL dose 1 completed MARQUIS GARCIA [address] [place] [address], [address], [facility] 06/26/2021 18:44:50 Influenza, split virus, quadrivalent, preservative 8 [facility]2018 10:05:48 Influenza, split virus, quadrivalent, preservative 9 completed LLOYD Almaraz [address] [place] [address], [address], [facility] 06/11/2019 15:51:30 Tdap 7 completed LLOYD Almaraz [address] [place] [address], [address], [facility] 04/09/2018 11:19:19 Past Encounters Encounter ID Performer Location Encounter Start Date Encounter Closed Date Diagnosis/Indication Diagnosis SNOMED-CT Code Diagnosis ICD10 Code [id number] Cadnece LLOYD Orellana [facility] AD[facility]ESS [address] [place] [address] 04/09/2018 10:58:46 04/09/2018 11:48:08 Adult health examination 928238262 Z00.01 Microscopic hematuria 19 7674703 R31.21 Anxiety 36715161 F41.9 Abdominal bloating 96693 9008 R14.0 Abdominal pain 88934636 R10.9 [id number] [facility] [address] [address] 09/18/2018 15:46:37 09/18/2018 16:35:43 Perioral dermatitis 377807260 L71.0 [id number] [facility] [address] [address] 06/11/2019 15:37:33 06/11/2019 16:09:25 Adult health examination 358739305 Z00.00 Active or passive immunization 597348893 Z23 Anxiety 58095966 F41.9 Vitamin D deficiency 347 39911 E55.9 Microscopic hematuria 19 3877494 R31.21 [id number] MARQUIS GARCIA [address] [address] 06/14/2020 15:37:36 06/14/2020 16:25:51 Anxiety 02791933 F41.9 Adult heal th examination 900943220 Z00.00 Thoracic back pain 89220 8004 M54.6 Low back pain 757302535 M54.5 Screening for cardiovascular system disease 512605580 Z13.6 [id number] MARQUIS GARCIA [address] [address] 10/24/2021 15:51:14 10/25/2021 11:35:00 Anxiety 92116180 F41.1 Adult heal th examination 767463128 Z00.00 [id number] MARQUIS GARCIA [address] [address] 09/22/2022 09:39:50 09/22/2022 16:32:53 Influenza-like symptoms 008902881 R68.89 [id number] MARQUIS GARCIA [address] [address] 01/29/2023 09:26:52 01/29/2023 11:38:09 Active or passive immunization 505006601 Z23 Adult heal th examination 671704205 Z00.00 Menopause 668846948 N95. 1 Anxiety 86366303 F41.1 [id number] MARQUIS GARCIA [address] [address] 07/10/2023 13:59:24 07/11/2023 08:09:49 Acute bronchitis 67171819 J20.8 [id number] MARQUIS GARCIA [address] [address] 08/10/2023 09:15:09 08/14/2023 09:58:18 Anxiety 24580461 F41.1 Panic attack 282434280 F 41.0 [id number] MARQUIS GARCIA [address] [place] [address] 08/21/2023 16:30:40 08/22/2023 08:58:06 Panic attack 540034509 F41.0 Restlessne ss and agitation 421776810 R45.1 [id number] MARQUIS GARCIA [address] [place] [address] 08/28/2023 09:51:15 08/29/2023 08:39:51 Anxiety 91346853 F41.1 Panic attack 627923515 F 41.0 Restlessne ss and agitation 683388099 R45.1 [id number] MARQUIS GARCIA [address] [address] 01/11/2024 14:55:00 01/11/2024 15:59:23 Anxiety 36201765 F41.1 Bipolar disorder 3542199 4 F31.10 [id number] Nitesh Rosenberg DO [address] [address] 05/12/2024 14:56:47 05/12/2024 15:45:14 Pre-surgery evaluation 024334719 Z01.818 Health Concerns Section Related Observation LastModified by Organization Detai ls LastModified Time None Recorded Concern Status LastModified by Organization Details LastModified Time None Recorded Advance Directives Directive None Recorded Payers Encounter Date Sequence Insurance Name Policy Number Policy Martinez Covered Member ID Martinez Member ID Guarantor Name 08/10/2023 1 [place] [id number] Vicki Contreras [id number] Vicki Contreras 08/21/2023 1 [place] [id number] Vicki Contreras [id number] Vicki Contreras 08/28/2023 1 [place] [id number] Vicki Contreras [id number] Vicki Contreras 01/11/2024 1 [place] [id number] Vicki Contreras [id number] Vicki Contreras 05/12/2024 1 [place] [id number] Vicki Contreras [id number] Vicki Contreras Notes Date Note Type Note Provider Name and Address Organization Details Recorded Time 08/10/2023 text/html c/o increased an xiety tele-med phonepatient consents to phone call the patient [facility] mouththe patient then started having panic attacks, increased anxietythe patient is having trouble with sleep is ruminating a lot about the pass the patient agreed to adjust medicationwill start on ativan as well will have her start with ativan twice a day MARQUIS GARCIA [address] [place] [address], [address], [facility] 08/10/2023 11:03:08 08/21/2023 text/html c/o SEVERE ANXIE TY acute stress/panic, conversation was 40 minutessuggest ED admit if she continues with these severe symptoms The patient presents to the office today for follow-up management of their ongoing depression/anxiety symptoms The patient's symptoms started after [place] she has been extremely anxious and panickyThe patient endorses:FatigueSleep changes/insomnia due to feeling to wired per patientLittle pleasure in doing thing they once found enjoyable nearly everydayApathetic/tank ppropriate emotional responsesWeight changes: 5 lbsPsychomotor agitation, feels restless, can't concentrate or make decisions, feel like she is burdening her husbandBrain Fog, can't make concise decisions, patient talked in circles about her symptoms, her tone was flat, her affect anxiousno specific signs for manic episodes The patient endorses extensive worry about life and currently the medications not workingThe patient also reports easy irritability, difficulty with concentrating or making decisions, restlessnessThis is impacting their life by making it difficult to complete her ADL's no SIstopped extra dose of paxil, stopped hydroxyzine, adjusted ativan to 1 mg and started her on 50 mg or seroquel After discussion patient for different interventions including cognitive behavioral therapy, medications, referral to therapist or psychiatrist the patient has agreed to medication and starting her on seroquel MARQUIS [facility] [place], [address], [facility] 08/21/2023 16:42:13 08/28/2023 text/html c/o anxiety/ment al health crisis The patient is participating in this appointment via telemedicine communication with a phone call/video calling service (readeo)The patient consents to use of these platforms in place of an in-person appointment due to either sick symptoms the patient is presenting with or current office closure due to COVID exposure in order to keep our office staff and patients safe the patient tried the seroquel, made her very groggy, fatiguedreduced dose but no changes taking 1 mg of ativan to sleepthe patient reports that it does help her calm down to be able to sleep the patient reports that she is still stuck ruminating about her anxietynot having any good benefit with the medication changes discussed medication adjustments no particular triggerthe patient and I discussed adjusting to 1/2 dose added hydroxyzine to take for break through flare ups MARQUIS [facility], [place], [address], [facility] 08/28/2023 14:35:26 01/11/2024 text/html hospital d/c the patient reports [facility], [place], [address], [facility] 01/11/2024 15:42:40 05/12/2024 text/html here for rechk a nd is in need of medical clearancehas been getting ECT therapy and requires clearance to go further Nitesh Rosenberg, DO [address], [place], [address], [facility] 05/12/2024 15:42:16 OBGyn Episode No OBEpisode recorded.
[2024-07-30] VITALS (7 sets, daily range): BP systolic 103–126; BP diastolic 67–82; PULSE 80–95; RESP 14–16; TEMP 36.4–36.8; O2SAT 100; BMI 17.2
--- OUTSIDE RECORDS SUMMARY | 2024-07-30 05:59 | XMS_ITS | Continuity of Care Document ---
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) : MDM LOW MUST MEET 2 [...] and Address Organization Details Recorded Time Anxiety 64620963 Active 2017 Not Available [employer] 15:48:18 Colorectal cancer detected by DNA-based stool screening 084701830 Active 2021 MARQUIS GARCIA [address] [place], [address], [facility] Internal [facility] 2 09:50:42 Influenza- like symptoms 123439458 Active 2022 MARQUIS GARCIA [address] [place] [address], [address], [facility] 3 10:43:43 Menopause Active 2022 MARQUIS GARCIA [address] [place] [address], [address], [facility] 3 09:50:48 Panic attack 528537465 Active 2022 MARQUIS GARCIA [address] [place] [address], [address], [facility] 3 10:57:41 Restlessne ss and agitation 652012773 Active 2023 MARQUIS GARCIA [address] [place] [address], [address], [facility] 4 16:21:19 Acute urinary tract infection 787904376 Active 2023 MARQUIS GARCIA [address] [place] [address], [address], [facility] 4 12:25:28 Bipolar disorder 81236545 Active 2023 MARQUIS GARCIA [address] [place] [address], [address], [facility] 4 15:34:50 Problem Notes None recorded. Procedures Surgical History Date Name Laterality Status Provider Name and Address Organization Details Recorded Time 04/22/20 18 Most Recent Mammogram completed [facility] 06/11/2019 08:15:51 09/06/19 11 Date of Last Pap Smear completed [facility] 06/11/2019 08:24:48 Remove tonsils and adenoids completed November LLOYD Orellana [address] [place] [address], [address], [facility] 06/11/2019 15:57:52 Imaging Results None recorded. Procedure [...] Not Available Not Available Not Available Afluria 1961-2756 (PF) 45 mcg(15 mcg x 3)/0.5 mL intramuscul ar syringe 04/09 completed Not Available Not Available Not Available Afluria Quad 2735-7898 (PF) 60 mcg (15 mcg x 4)/0.5 [...] Updated DateTime 4 170.18 cm 17.2 kg/m2 19756.1 6 g 94 /min 97 % 97 % 130 mm[Hg] 68 mm[Hg] Nishi [facility] 4 15:18:57 Social History Question Answer Notes LastModified by Organizat ion Details LastModified Time Tobacco Smoking Status Never Smoker Not Available [employer] 06/15/2020 03:36:24 Do You Or Have You Ever Used E-cigarettes Or Vape? Never Used Electronic Cigarettes [id number] Information not available 06/15/2020 What Was The Date Of Your Most Recent Tobacco Screening? 05/12/2024 [email or web address] Information not available 05/12/2024 Do You Or Have You Ever Used Smokeless Tobacco? Never Used Smokeless Tobacco [id number] Information not available 06/15/2020 How Much Tobacco Do You Smoke? No [id number] Information not available 06/15/2020 How Many Years Have You Smoked Tobacco? 0 [id number] Information not available 06/15/2020 Do You Or Have You Ever Used Any Other Forms Of Tobacco Or Nicotine? No [email or web address] Information not available 05/12/2024 Sex: Unknown Functional [...] mcg/0.3 mL dose 1 completed MARQUIS GARCIA [address] [place], [address], [facility] 06/26/2021 18:44:50 Influenza, split virus, quadrivalent, preservative 8 [facility] 05/22/2018 10:05:48 Influenza, split virus, quadrivalent, preservative 9 completed LLOYD Almaraz [address] [place], [address], [facility] 06/11/2019 15:51:30 Tdap 7 completed November LLOYD Orellana [address] [place], [address], [facility] 04/09/2018 11:19:19 Past Encounters Encounter ID Performer Location Encounter Start Date Encounter Closed Date Diagnosis/Indication Diagnosis SNOMED-CT Code Diagnosis ICD10 Code [id number] Nitesh Rosenberg [facility] [address] [facility],[place] [address] 05/12/2024 14:56:47 05/12/2024 15:45:14 Pre-surgery evaluation 383871333 Z01.818 Health Concerns Section Related Observation LastModified by Organization Detai ls LastModified Time None Recorded Concern Status LastModified by Organization Details LastModified Time None Recorded Payers Encounter Date Sequence Insurance Name Policy Number Policy Martinez Covered Member ID Martinez Member ID Guarantor Name 05/12/2024 1 [place] [id number] Vicki Contreras [id number] Vicki Contreras Notes Date Note Type Note Provider Name a nd Address Organization Details Recorded Time 05/12/2024 text/html here for rechk a nd is in need of medical clearancehas been getting ECT therapy and requires clearance to go further Nitesh Rosenberg DO [address] [place], [address], [facility] 05/12/2024 15:42:16 OBGyn Episode No OBEpisode recorded.
--- OUTSIDE RECORDS SUMMARY | 2024-07-30 05:59 | XMS_ITS | Data Portability ---
Author Organization [facility] Home Service Address [address] [place] [address] Assessment Encounter Date Assessment Date Assessment LastModified by Organization Details LastModified Time 08/10/2023 08/10/2023 Patient agreed and verbally consents to this audio and video Telehealth appt via a secure platform [email or web address] Not available 08/10/2023 10:58:05 08/21/2023 08/21/2023 The patient is participating in this appointment via telemedicine communication with a phone call/video calling service ([employer]) The patient consents to use of these [...] [email or web address] Not available 08/28/2023 14:09:09 05/12/2024 05/12/2024 [id number] [place] [id number] (DIESEL ENGINE SPECIALIST) : MDM LOW MUST MEET 2 [...] Lab TSH + free T4, serum 2023 [facility], [place], [address], 4 11:34:45 vitamin B12 + folate, serum or blood 2023 024 [facility], [place], [address], 4 11:34:45 ESR (erythrocy te sedimentat ion rate), blood 2023 024 [facility], [place], [address], 4 14:25:15 C reactive protein, QN, serum or plasma 2023 024 [facility], [place], [address], 4 14:25:15 GIBSON + rf (antinucle ar antibodies + rheumatoid factor), quantitati ve, serum 2023 024 [facility] [address], [address], 4 11:25:57 cortisol, serum or plasma 2023 024 [facility] [address], [address], 4 14:26:47 PTH (parathyro id hormone), intact, serum or plasma 2023 024 [facility], [place], [address], 4 14:25:15 CMP, serum or plasma 2023 024 [facility], [place], [address], 4 11:34:45 Referral None recorded. Procedures None recorded. Surgeries None recorded. Imaging None recorded. Medication Orders lorazepam 0.5 mg tablet 2022 024 [facility] [employer] [facility], [address], [place], [id number], 4 15:08:04 paroxetine 10 mg tablet [email or web address] [place] [address] [employer] [facility], [address] [place], [place], [id number], 4 15:15:06 lorazepam 1 mg tablet 2023 024 [facility] [employer] [facility] #[address], [address], [place], [id number], 4 15:08:08 Seroquel 25 mg tablet 2023 024 [facility] [employer] [facility], [address], [place], [id number], 4 15:15:35 lorazepam 0.5 mg tablet 2023 024 [facility] [employer] [facility] #[address], [address], [place], [id number], 4 15:08:04 hydroxyzin e HCl 25 mg tablet 2023 024 [facility] [employer] [facility] #[address], [address], [place], [id number], 4 15:16:31 Patient TargetsNo targets recorded. Patient InstructionsNo instructions recorded. Reason for Referral None Reported. Results Created Date Observation Date Name Description Value Unit Range Abnormal Flag Note LastModifiedBy Organization Detail LastModifiedTime 03/11/20 24 03/11/2024 CT, head, w/o contr ast No observ ation record ed. [facility] (Medical Records) [address] [place], [address], 03/12/2024 08:51:04 Result Notes None recorded. Problems Name Problem SNOMED Code Status Onset Date Resolution Date Notes Provider Name and Address Organization Details Recorded Time Anxiety 99179647 Active 2017 Not Available [facility] 1 15:48:18 Colorectal cancer detected by DNA-based stool screening 304852544 Active 2021 MARQUIS GARCIA [address] [place] [address], [address], [facility] 2 09:50:42 Influenza- like symptoms 243044142 Active 2022 MARQUIS GARCIA [address] [place] [address], [address], [facility] 3 10:43:43 Menopause Active 2022 MARQUIS GARCIA [address] [place] [address], [address], [facility] 3 09:50:48 Panic attack 510493629 Active 2022 MARQUIS GARCIA [address] [place] [address], [address], [facility] 3 10:57:41 Restlessne ss and agitation 210388014 Active 2023 MARQUIS GARCIA [address] [place] [address], [address], [facility] 4 16:21:19 Acute urinary tract infection 671396574 Active 2023 MARQUIS GARCIA [address] [place] [address], [address], [facility] 4 12:25:28 Bipolar disorder 89085868 Active 2023 MARQUIS GARCIA [address] [place], [address], [facility] 15:34:50 Problem Notes None recorded. Procedures Surgical History Date Name Laterality Status Provider Name and Address Organization Details Recorded Time 04/22/20 18 Most Recent Mammogram completed [facility] 06/11/2019 08:15:51 09/06/19 11 Date of Last Pap Smear completed [facility] 06/11/2019 08:24:48 Remove tonsils and adenoids completed November LLOYD Orellana [address] [place], [address], [facility] 06/11/2019 15:57:52 Imaging Results Imaging Date Name Status LastModified by Organiz ation Details LastModified Time 03/11/2024 CT, head, w/o contrast completed [facility] (Medical Records) [address] [place] [address], [address], 03/12/2024 08:51:04 Procedure Notes None recorded. Medical [...] Not Available Not Available Not Available Afluria 8837-4797 (PF) 45 mcg(15 mcg x 3)/0.5 mL [...] Updated DateTime 4 170.18 cm 18 kg/m2 95631.4 g 87 /min 98 % 98 % 110 mm[Hg] 70 mm[Hg] Roxanne Soriano [facility] 4 15:09:24 Date Recorded Body height Body mass index (BMI) Body weight Heart rate Oxygen saturation Oxygen saturation in Arterial blood by Pulse oximetry Systolic blood pressure Diastolic blood pressure Provider Name and Address Organization Details Last Updated DateTime 4 170.18 cm 17.2 kg/m2 29707.1 6 g 94 /min 97 % 97 % 130 mm[Hg] 68 mm[Hg] Nishi Ortega [facility] 4 15:18:57 Social History Question Answer Notes LastModified by Organizat ion Details LastModified Time Tobacco Smoking Status Never Smoker Not Available [facility] 06/15/2020 03:36:24 Do You Or Have You Ever Used E-cigarettes Or Vape? Never Used Electronic Cigarettes [id number] Information not available 06/15/2020 What Was The Date Of Your Most Recent Tobacco Screening? 05/12/2024 [email or web address] Information not available 05/12/2024 Do You Or Have You Ever Used Smokeless Tobacco? Never Used Smokeless Tobacco [id number] Information not available 06/15/2020 How Much Tobacco Do You Smoke? No [id number] Information not available 06/15/2020 How Many Years Have You Smoked Tobacco? 0 [id number] Information not available 06/15/2020 Do You Or Have You Ever Used Any Other Forms Of Tobacco Or Nicotine? No [email or web address] Information not available 05/12/2024 Sex: Unknown Functional [...] mcg/0.3 mL dose 1 completed MARQUIS GARCIA [address] [place] [address], [address], [facility] 06/26/2021 18:44:50 Influenza, split virus, quadrivalent, preservative 8 completed Zakia Gonzalez [facility] 05/22/2018 10:05:48 Influenza, split virus, quadrivalent, preservative 9 completed LLOYD Almaraz [address] [place] [address], [address], [facility] 06/11/2019 15:51:30 Tdap 7 completed Cadence LLOYD Orellana [address] [place] [address], [address], [facility] 04/09/2018 11:19:19 Past Encounters Encounter ID Performer Location Encounter Start Date Encounter Closed Date Diagnosis/Indication Diagnosis SNOMED-CT Code Diagnosis ICD10 Code [id number] November LLOYD Orellana [facility] [address] [address] 04/09/2018 10:58:46 04/09/2018 11:48:08 Adult health examination 146814353 Z00.01 Microscopic hematuria 19 8467946 R31.21 Anxiety 75430221 F41.9 Abdominal bloating 58505 9008 R14.0 Abdominal pain 56608007 R10.9 [id number] [facility] [address] [place] [address] [place] [address] 09/18/2018 15:46:37 09/18/2018 16:35:43 Perioral dermatitis 193823010 L71.0 [id number] [facility] [address] [place] [address] [place] [address] 06/11/2019 15:37:33 06/11/2019 16:09:25 Adult health examination 278054003 Z00.00 Active or passive immunization 715130709 Z23 Anxiety 80581010 F41.9 Vitamin D deficiency 347 90355 E55.9 Microscopic hematuria 19 9100955 R31.21 [id number] MARQUIS GARCIA [facility] [address] [place] [address] [place] [address] 06/14/2020 15:37:36 06/14/2020 16:25:51 Anxiety 36390514 F41.9 Adult heal th examination 608682535 Z00.00 Thoracic back pain 28912 8004 M54.6 Low back pain 077865190 M54.5 Screening for cardiovascular system disease 629815711 Z13.6 [id number] MARQUIS GARCIA [facility] [address] [place] [address] [place] [address] 10/24/2021 15:51:14 10/25/2021 11:35:00 Anxiety 04992509 F41.1 Adult heal th examination 078246586 Z00.00 [id number] MARQUIS GARCIA [facility] [address] [place] [address] [place] [address] 09/22/2022 09:39:50 09/22/2022 16:32:53 Influenza-like symptoms 206934323 R68.89 [id number] MARQUIS GARCIA [facility] [address] [address] 01/29/2023 09:26:52 01/29/2023 11:38:09 Active or passive immunization 662263219 Z23 Adult heal th examination 971786366 Z00.00 Menopause 347823098 N95. 1 Anxiety 16689109 F41.1 [id number] MARQUIS GARCIA [facility] [address] [place] [address],[place] [address] 07/10/2023 13:59:24 07/11/2023 08:09:49 Acute bronchitis 53479906 J20.8 [id number] MARQUIS GARCIA [facility] [address] [place] [address],[place] [address] 08/10/2023 09:15:09 08/14/2023 09:58:18 Anxiety 86487652 F41.1 Panic attack 960373690 F 41.0 [id number] MARQUIS GARCIA [facility] [address] [place] [address],[place] [address] 08/21/2023 16:30:40 08/22/2023 08:58:06 Panic attack 793506170 F41.0 Restlessne ss and agitation 701140873 R45.1 [id number] MARQUIS GARCIA [facility] [address] [place] [address],[place] [address] 08/28/2023 09:51:15 08/29/2023 08:39:51 Anxiety 35038107 F41.1 Panic attack 081851392 F 41.0 Restlessne ss and agitation 922391554 R45.1 [id number] MARQUIS GARCIA [facility] [address] [place] [address],[place] [address] 01/11/2024 14:55:00 01/11/2024 15:59:23 Anxiety 09740055 F41.1 Bipolar disorder 7782819 4 F31.10 [id number] Nitesh Rosenberg DO [facility] [address] [place] [address],[place] [address] 05/12/2024 14:56:47 05/12/2024 15:45:14 Pre-surgery evaluation 697823345 Z01.818 Health Concerns Section Related Observation LastModified by Organization Detai ls LastModified Time None Recorded Concern Status LastModified by Organization Details LastModified Time None Recorded Advance Directives Directive None Recorded Payers Encounter Date Sequence Insurance Name Policy Number Policy Martinez Covered Member ID Matrinez Member ID Guarantor Name 08/10/2023 1 [place] [id number] Vicki Contreras [id number] Vicki Contreras 08/21/2023 1 [place] [id number] Vicki Contreras [id number] Vicki Contreras 08/28/2023 1 [place] [id number] Vicki Contreras [id number] Vicki Contreras 01/11/2024 1 [place] [id number] Vicki Contreras [id number] Vicki Contreras 05/12/2024 1 [place] [id number] Vicki Contreras [id number] Vicki Contreras Notes Date Note Type Note Provider Name a nd Address Organization Details Recorded Time 3 text/html c/o increased anxiety tele-med phonepatient consents to phone call the patient [facility] mouththe patient then started having panic attacks, increased anxietythe patient is having trouble with sleep is ruminating a lot about the pass the patient agreed to adjust medicationwill start on ativan as well will have her start with ativan twice a day MARQUIS GARCIA [address] [facility], [place], [address], [facility] 08/10/2023 11:03:08 4 text/html c/o SEVERE ANXIETY acute stress/panic, conversation was 40 minutessuggest ED admit if she continues with these severe symptoms The patient presents to the office today for follow-up management of their ongoing depression/anxiety symptoms The patient's symptoms started after Richard she has been extremely anxious and panickyThe patient endorses:FatigueSlee p changes/insomnia due to feeling to wired per patientLittle pleasure in doing thing they once found enjoyable nearly everydayApathetic/in appropriate emotional responsesWeight changes: 5 lbsPsychomotor agitation, feels [...] and starting her on seroquel MARQUIS GARCIA [address] [place], [address], [facility] 08/21/2023 16:42:13 4 text/html c/o anxiety/mental health crisis The patient is participating in this appointment via telemedicine communication with a phone call/video calling service ([employer])The patient consents to use of these platforms [...] for break through flare ups MARQUIS GARCIA [address] [place], [address], [facility] 08/28/2023 14:35:26 4 text/html hospital d/c the patient reports MARQUIS GARCIA [address] [place], [address], [facility] 01/11/2024 15:42:40 4 text/html here for rechk and is in need of medical clearancehas been getting ECT therapy and requires clearance to go further Nitesh Rosenberg DO [address] [place], [address], [facility] 05/12/2024 15:42:16 OBGyn Episode No OBEpisode recorded.
--- NOTE | 2024-07-30 06:50 | P.CONAN_ITS ---
[facility] Active Problems Active Problems: All Active Problems 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 (Acute) Bipolar 1 disorder, depressed, severe (Acute) Cognitive and behavioral changes (Acute) Other anxiety states (Acute) Bipolar affective, mixed, severe (Acute) Akathisia (Acute) Panic attacks (Acute) Anxiety (Acute) Past Medical History Medical History Menopause Routine medical exam Bipolar affective, mixed, severe Akathisia Panic attacks Anxiety No known health problems Family History Family history of problems with anesthesia: No Surgical History History of Problems with Anesthesia: No Social History Social History Household Members: Spouse Household Members Other:: Housing: House Are you a primary wound care center consultant to a significant other at home: No Do you presently have visiting nurse or other home services: No Alcohol intake: current Alcohol intake frequency: does not drink Alcohol type: wine Patient Tobacco Use Status: Never used Tobacco e-Cigarette/Vaping Use: Never Used Second Hand Smoke Exposure: No Advance Directives: No Advance Directives Information Provided: Yes service: No Sexual orientation: Straight/Heterosexual Meds Allergies Allergy/AdvReac Type Severity Reaction Status Date / Time No Known Allergies Allergy Verified 03/11/24 14:49 Home Medications ?Medication ?Instructions ?Recorded ?Confirmed ?Last Taken ?Type estradiol 0.0375 mg/24 hr 1 patch topical 2XW 03/11/24 03/11/24 03/11/24 History semiweekly transdermal patch progesterone micronized 100 mg 100 mg PO DAILY 03/11/24 03/11/24 03/11/24 History capsule mirtazapine 15 mg tablet 15 mg PO BEDTIME 06/02/24 06/02/24 Unknown History Exam Height,Weight and Vital Signs: Height 5 ft 7 in Weight 49.895 kg Last Vital Signs Temp 98.3 F 07/30/24 06:40 Pulse 80 07/30/24 06:40 Resp 16 07/30/24 06:40 BP 103/67 07/30/24 06:40 Pulse Ox 100 07/30/24 06:40 O2 Del Method Room Air 07/30/24 06:40 Airway Mallampati Class: II TM Dist: >3cm Neck ROM: Full Heart: rrr Lungs: cta Assessment and Plan Assessment Anesthesia Assessment: Anesthesia Plan Discussed and Chart Reviewed Final Anesthetic Review Family History of Problems with Anesthesia: No History of Problems with Anesthesia: No NPO: Yes ASA Class: III Final Preanesthetic Review: No Changes in Pt Med Stat, Meds/Allgs Chart Reviewed and Consent Obtained/Reviewed Patient Risk: Intermediate Procedure Risk: Intermediate Anesthetic Plan Anesthetic Plan: GA Disposition: Standard PACU
[2024-07-30] MEDS: Lactated Ringers 1,000 ML 50 ML IVCONT (06:57)
--- NOTE | 2024-07-30 07:34 | MHC.SHP ---
Pre-Procedural Eval Section A - 24 Hr Update-Section A only Date of Service: 07/30/24 The patient is an INPATIENT: No Changes since office visit: No Cold of Flu in the past 2 weeks, No New Medical Problems, No Changes in Medication and No Patient answered all questions The patient has been examined within 24 hours of the surgical procedure. The History & Physical has been completed within 30 days and I have reviewed it.: Yes Section B - Complete if H&P > 30 days Chief Complaint: depression Details of Present Illness: The patient reported mostly anxiety at AM, no major changes on her mental status Relevant Family History (Specify if Yes): Yes Relevant Social History: None Present Medications: see Short Stay Collaborative assessment Medical History: No relevant PMH History of Previous Operations: No relevant previous surgery Allergies: Allergies Allergy/AdvReac Type Severity Reaction Status Date / Time No Known Allergies Allergy Verified 03/11/24 14:49 Review of Systems Sugical H&P ROS: Negative: Constitution, Cardiovascular, Respiratory, Neurological, Psychiatric, Hem-Onc, Allergic/Immunologic, Gastrointestinal, Genitourinary, Musculoskeletal, Integumentary, Endocrine and Eyes/Ears/Nose/Throat Exam Surgical H&P Exam: Normal: Heart, Normal: Lungs, Normal: Extremities and Normal: Neurological Exam Comment: alert orientrd no confusion 103/67 Plan Diagnosis/Plan: Unchanged I have reviewed the history and physical and performed a pertinent physical examination on my patient. No changes have occurred unless specified. Time Spent With Patient Time: Total time managing care of this patient today _30___ minutes.
--- NOTE | 2024-07-30 07:36 | HO.ECTPROC ---
ECT Procedure Note Diagnosis/Treatment Date of Service: 07/30/24 Diagnosis: Bipolar disorder Previous ECT Date: 07/04/24 Treatment: Maintenance Interval Clinical Notes: The patient reported generally stable mood still not feeling herself ongong anxiety questioning herself Done as per previous had significant post op anxiety did well with lorazepam iv 1mg Time: Total time managing care of this patient today ____ minutes. ECT Settings Device: THYMATRON DGx Electrode Placement: Right Unilateral Program/Pulse Width: 0.25 Energy Percent: 70 Seizure Duration By EEG (in seconds): 62 Medications Administration General Anesthetic: Etomidate (14) Muscle Relaxant: Succinylcholine (80) Airway Management Airway Management: Bag Mask Ventilation Treatment Recommendations No Changes Recommended: No change Notes: requuired iv ataivan post f/u 4 weeks
[2024-07-30] MEDS: LORazepam 2 MG/ML VIAL 1 MG IVPUSH (08:06)
== END 2024-07-30 08:50 | disposition home or self-care (01) ==
PROVIDERS: PCP Internal Medicine; Visit Provider Psychiatry & Neurology Psychiatry
PROC: (CPT 90870; principal; 2024-07-30 07:30)
DX: F31.9 Bipolar disorder, unspecified (principal); F41.9 Anxiety disorder, unspecified; F41.0 Panic disorder [episodic paroxysmal anxiety]; G25.71 Drug induced akathisia; Z79.899 Other long term (current) drug therapy
CPT/HCPCS: 90870; J0330; J1596; J1805; J1885; J2060; J2405; J2704

== ENCOUNTER → 2024-07-30 05:56 | Outpatient (BNV) | payer BC, SELFPAY | PROVIDERS: PCP Internal Medicine; Visit Provider Psychiatry & Neurology Psychiatry | DX: F33.3 Major depressive disorder, recurrent, severe with psychotic symptoms (principal) | CPT/HCPCS: 90870 ==

== ENCOUNTER 2024-08-27 10:54 | Day surgery (SDC) | payer BC, SELFPAY ==
--- OUTSIDE RECORDS SUMMARY | 2024-08-20 13:50 | XMS_ITS | Data Portability ---
Author Organization [facility] Home Service Address [address] [place] [address] Assessment Encounter Date Assessment Date Assessment LastModified by Organization Details LastModified Time 08/10/2023 08/10/2023 Patient agreed and verbally consents to this audio and video Telehealth appt via a secure platform [email or web address] Not available 08/10/2023 10:58:05 08/21/2023 08/21/2023 The patient is participating in this appointment via telemedicine communication with a phone call/video calling service ([employer]) The patient consents to use of these [...] [email or web address] Not available 08/28/2023 14:09:09 05/12/2024 05/12/2024 [id number] [place] [id number] (PATHOLOGY SPECIALIST) : MDM LOW MUST MEET 2 [...] Lab TSH + free T4, serum 2023 [facility], [place], [address], 4 11:34:45 vitamin B12 + folate, serum or blood 2023 024 [facility], [place], [address], 4 11:34:45 ESR (erythrocy te sedimentat ion rate), blood 2023 024 [facility], [place], [address], 4 14:25:15 C reactive protein, QN, serum or plasma 2023 024 [facility], [place], [address], 4 14:25:15 GIBSON + rf (antinucle ar antibodies + rheumatoid factor), quantitati ve, serum 2023 024 [facility] [address], [address], 4 11:25:57 cortisol, serum or plasma 2023 024 [facility] [address], [address], 4 14:26:47 PTH (parathyro id hormone), intact, serum or plasma 2023 024 [facility], [place], [address], 4 14:25:15 CMP, serum or plasma 2023 024 [facility], [facility] [place], [place], [address], 4 11:34:45 Referral None recorded. Procedures None recorded. Surgeries None recorded. Imaging None recorded. Medication Orders lorazepam 1 mg tablet 2023 024 [facility]173, [address], [place], [id number], 4 15:08:08 Seroquel 25 mg tablet 2023 024 [facility]66826, [address], [place], [id number], 4 15:15:35 lorazepam 0.5 mg tablet 2023 024 [facility] #97708, [address], [place], [id number], 4 15:08:04 hydroxyzin e HCl 25 mg tablet 2023 024 [facility] #17310, [address], [place], [id number], 4 15:16:31 lorazepam 0.5 mg tablet 2022 024 [facility] #03233, [address], [place], [id number], 4 15:08:04 paroxetine 10 mg tablet [email or web address] [place] [address] [facility] #93280, [address], [place], [id number], 4 15:15:06 Patient TargetsNo targets recorded. Patient InstructionsNo instructions recorded. Reason for Referral None Reported. Results Created Date Observation Date Name Description Value Unit Range Abnormal Flag Note LastModifiedBy Organization Detail LastModifiedTime 03/11/20 24 03/11/2024 CT, head, w/o contr ast No observ ation record ed. [facility] (Medical Records) [address] [place], [address], 03/12/2024 08:51:04 Result Notes None recorded. Problems Name Problem SNOMED Code Status Onset Date Resolution Date Notes Provider Name and Address Organization Details Recorded Time Anxiety 46359646 Active 2017 Not Available [facility] 1 15:48:18 Colorectal cancer detected by DNA-based stool screening 354173444 Active 2021 MARQUIS GARCIA [address] [place] [address], [address], [facility] 2 09:50:42 Influenza- like symptoms 781014826 Active 2022 MARQUIS GARCIA [address] [place] [address], [address], [facility] 3 10:43:43 Menopause Active 2022 MARQUIS GARCIA [address] [place] [address], [address], [facility] 3 09:50:48 Panic attack 972656211 Active 2022 MARQUIS GARCIA [address] [place] [address], [address], [facility] 3 10:57:41 Restlessne ss and agitation 985112737 Active 2023 MARQUIS GARCIA [address] [place] [address], [address], [facility] 4 16:21:19 Acute urinary tract infection 501631268 Active 2023 MARQUIS GARCIA [address] [place] [address], [address], [facility] 4 12:25:28 Bipolar disorder 81353537 Active 2023 MARQUIS GARCIA [address] [place], [address], [facility] 15:34:50 Problem Notes None recorded. Procedures Surgical History Date Name Laterality Status Provider Name and Address Organization Details Recorded Time 04/22/20 18 Most Recent Mammogram completed [facility] 06/11/2019 08:15:51 09/06/19 11 Date of Last Pap Smear completed [facility] 06/11/2019 08:24:48 Remove tonsils and adenoids completed November LLOYD Orellana [address] [place], [address], [facility] 06/11/2019 15:57:52 Imaging Results Imaging Date Name Status LastModified by Organiz ation Details LastModified Time 03/11/2024 CT, head, w/o contrast completed [facility] (Medical Records) [address] [place] [address], [address], 03/12/2024 08:51:04 Procedure Notes None recorded. Medical [...] Not Available Not Available Not Available Afluria 9375-2819 (PF) 45 mcg(15 mcg x 3)/0.5 mL [...] Updated DateTime 4 170.18 cm 18 kg/m2 81050.4 g 87 /min 98 % 98 % 110 mm[Hg] 70 mm[Hg] Roxanne Soriano [facility] 4 15:09:24 Date Recorded Body height Body mass index (BMI) Body weight Heart rate Oxygen saturation Oxygen saturation in Arterial blood by Pulse oximetry Systolic blood pressure Diastolic blood pressure Provider Name and Address Organization Details Last Updated DateTime 4 170.18 cm 17.2 kg/m2 13926.1 6 g 94 /min 97 % 97 % 130 mm[Hg] 68 mm[Hg] Nishi Ortega [facility] 4 15:18:57 Social History Question Answer Notes LastModified by Organizat ion Details LastModified Time Tobacco Smoking Status Never Smoker Not Available [facility] 06/15/2020 03:36:24 Do You Or Have You Ever Used E-cigarettes Or Vape? Never Used Electronic Cigarettes [id number] Information not available 06/15/2020 What Was The Date Of Your Most Recent Tobacco Screening? 05/12/2024 [email or web address] Information not available 05/12/2024 Do You Or Have You Ever Used Smokeless Tobacco? Never Used Smokeless Tobacco [id number] Information not available 06/15/2020 How Much Tobacco Do You Smoke? No [id number] Information not available 06/15/2020 How Many Years Have You Smoked Tobacco? 0 [id number] Information not available 06/15/2020 Do You Or Have You Ever Used Any Other Forms Of Tobacco Or Nicotine? No [email or web address] Information not available 05/12/2024 Sex: Unknown Functional [...] mcg/0.3 mL dose 1 completed MARQUIS GARCIA [address] [place] [address], [address], [facility] 06/26/2021 18:44:50 Influenza, split virus, quadrivalent, preservative 8 completed Zakia Gonzalez [facility] 05/22/2018 10:05:48 Influenza, split virus, quadrivalent, preservative 9 completed LLOYD Almaraz [address] [place] [address], [address], [facility] 06/11/2019 15:51:30 Tdap 7 completed Cadence LLOYD Orellana [address] [place] [address], [address], [facility] 04/09/2018 11:19:19 Past Encounters Encounter ID Performer Location Encounter Start Date Encounter Closed Date Diagnosis/Indication Diagnosis SNOMED-CT Code Diagnosis ICD10 Code Diagnosis Note [id number] November LLOYD Orellana [facility] [address] [facility],[place] [address] 04/09/2018 10:58:46 04/09/2018 11:48:08 Adult health examination 623995110 Z00.01 fasting labs reviewed and are all normal Microscopic hematuria 19 4803357 R31.21 has had neg urologic work up in past Anxiety 19515141 F41.9 paroxetine works well, has tried to taper off, but didn't tolerate Abdominal bloating 49720 9008 R14.0 ? IBS consider FODMAPS diet Abdominal pain 99036693 R10.9 [id number] [facility] [address] [facility],[place] [address] 09/18/2018 15:46:37 09/18/2018 16:35:43 Perioral dermatitis 874743830 L71.0 avoid all products trial coconut oil will trial doxy as well [id number] [facility] [address] [facility],[place] [address] 06/11/2019 15:37:33 06/11/2019 16:09:25 Adult health examination 279325712 Z00.00 Active or passive immunization 848523719 Z23 UTD Anxiety 95062608 F41.9 paroxetine works well, has tried to taper off, but didn't tolerate Vitamin D deficiency 347 92226 E55.9 Microscopic hematuria 19 9007333 R31.21 has had neg urologic work up in past [id number] MARQUIS GARCIA [facility] [address] [facility],[place] [address] 06/14/2020 15:37:36 06/14/2020 16:25:51 Anxiety 10318103 F41.9 Adult heal th examination 716060838 Z00.00 BP excellent today all concerns addressed Thoracic back pain 24611 8004 M54.6 will start with XR Low back pain 234350250 M54.5 will start with XR Screening for cardiovascular system disease 424569437 Z13.6 needs [id number] MARQUIS GARCIA [facility] [address] [facility],[place] [address] 10/24/2021 15:51:14 10/25/2021 11:35:00 Anxiety 88378869 F41.1 stablewill send in refill Adult [facility] examination 858860818 Z00.00 BP excellent today all concerns addressed [id number] MARQUIS GARCIA [facility] [address] [facility],[place] [address] 09/22/2022 09:39:50 09/22/2022 16:32:53 Influenza-like symptoms 890315889 R68.89 will see who has it in stock [id number] MARQUIS GARCIA [facility] [address] [facility],[place] [address] 01/29/2023 09:26:52 01/29/2023 11:38:09 Active or passive immunization 799852335 Z23 up to date Adult [facility] examination 062263055 Z00.00 BP excellent today all concerns addressed Menopause 610516134 N95. 1 seeing GYNwill suggest HRT Anxiety 18971326 F41.1 stablewill send in refill of the increased dosage [id number] MARQUIS GARCIA [facility] [address] [place] [address],[place] [address] 07/10/2023 13:59:24 07/11/2023 08:09:49 Acute bronchitis 73368171 J20.8 will start on a prednisone taperconti nue exporant and fluidscont inue with rest [id number] MARQUIS GARCIA [facility] [address] [place] [address],[place] [address] 08/10/2023 09:15:09 08/14/2023 09:58:18 Anxiety 44710971 F41.1 will up to 50 mg, hopefully will be able to drop it back down Panic attack 940967052 F 41.0 [id number] MARQUIS GARCIA [facility] [address] [facility],[place] [address] 08/21/2023 16:30:40 08/22/2023 08:58:06 Panic attack 246948154 F41.0 started on seroquelwi ll fu tomorrow Restlessne ss and agitation 981144664 R45.1 fu tomorrow [id number] MARQUIS GARCIA [facility] [address] [facility],[place] [address] 08/28/2023 09:51:15 08/29/2023 08:39:51 Anxiety 90039467 F41.1 will up to 50 mg, hopefully will be able to drop it back down Panic attack 567796252 F 41.0 continue 25 mg of seroquel Restlessne ss and agitation 752653735 R45.1 continue 25 mg seroquel [id number] MARQUIS GARCIA [facility] [address] [facility],[place] [address] 01/11/2024 14:55:00 01/11/2024 15:59:23 Anxiety 39436280 F41.1 will up to 50 mg, hopefully will be able to drop it back down Bipolar disorder 9765469 4 F31.10 working with PATHOLOGY SPECIALIST for medication s [id number] Nitesh Rosenberg, [facility] [address] [facility] [address] [address] 05/12/2024 14:56:47 05/12/2024 15:45:14 Pre-surgery evaluation 309400875 Z01.818 .per the 2020 ACC cardiac risk stratifica tion , this patient is cleared for the proposed ECT therapy . Health Concerns Section Related Observation LastModified by Organization Detai ls LastModified Time None Recorded Concern Status LastModified by Organization Details LastModified Time None Recorded Advance Directives Directive None Recorded Payers Encounter Date Sequence Insurance Name Policy Number Policy Martinez Covered Member ID Martinez Member ID Guarantor Name 08/10/2023 1 [place] [id number] Vicki Contreras [id number] Vicki Contreras 08/21/2023 1 [place] [id number] Vicki Contreras [id number] Vicki Contreras 08/28/2023 1 [place] [id number] Vicki Contreras [id number] Vicki Contreras 01/11/2024 1 [place] [id number] Vicki Contreras [id number] Vicki Contreras 05/12/2024 1 [place] [id number] Vicki Contreras [id number] Vicki Contreras Notes Date Note Type [...] ativan twice a day MARQUIS GARCIA [address] [place], [address], [facility] 08/10/2023 11:03:08 4 text/html c/o SEVERE ANXIETY acute stress/panic, conversation was 40 minutessuggest ED admit if she continues with these severe symptoms The patient presents to the office today for follow-up management of their ongoing depression/anxiety symptoms The patient's symptoms started after [place] she has been extremely anxious and panickyThe [...] starting her on seroquel MARQUIS GARCIA [address] [place], [address], [facility] 08/21/2023 16:42:13 4 text/html c/o anxiety/mental health crisis The patient is participating in this appointment via telemedicine communication with a phone call/video calling service ([employer])The patient consents to use of these platforms [...] break through flare ups MARQUIS GARCIA [address] [place], [address], [facility] 08/28/2023 14:35:26 4 text/html hospital d/c the patient reports MARQUIS GARCIA [address] [place], [address], [facility] 01/11/2024 15:42:40 4 text/html here for rechk and is in need of medical clearancehas been getting ECT therapy and requires clearance to go further Nitesh Rosenberg DO [address] [place], [address], [facility] 05/12/2024 15:42:16 OBGyn Episode No OBEpisode recorded.
--- OUTSIDE RECORDS SUMMARY | 2024-08-20 13:50 | XMS_ITS | Data Portability ---
Author Organization [facility], , [facility] Address [address] [place] [address] Assessment No assessment recorded. Plan of Treatment Reminders Order Date Submit Date Provider Last Modified By Organization Details Last Modified Time Details Appointments None recorded. Lab rapid strep A 2008 009 [facility], [address] [place] [address], [address], 3 03:37:43 Referral None recorded. Procedures None recorded. Surgeries None recorded. Imaging None recorded. Medication Orders paroxetine 20 mg tablet 2008 009 [facility], [address], [place], [id number], 3 03:03:56 penicillin V potassium 500 mg tablet 2008 009 [facility] #22925, [address], [place], [id number], 3 03:03:56 Patient TargetsNo targets recorded. Patient Instructions Encounter Date Encounter Id Patient Instructions Last Modified By Organization Details Last Modified Time 09/16/2008 [id number].we discussed the likelihood of relapse with antidepressants. Given that she's been on and off for them about 3 times and has relapsed about 3 x 2 of which were depression, the likelihood of relapse rate is fairly high and since she is getting away with using it every two to 3 days I think she should continue to do that. [id number] [id number] Not available 03/13/2011 02:51:43 Reason for Referral None Reported. Results Created Date Observation Date Name Description Value Unit Range Abnormal Flag Note LastModifiedBy Organization Detail LastModifiedTime 09/16/2008 rapid strep A Result positi ve Not Available [address], [place], [address], 09/16/2008 11:46:15 Result Notes None recorded. Problems Name Problem SNOMED Code Status Onset Date Resolution Date Notes Provider Name and Address Organization Details Recorded Time Acute pharyngiti s 594551762 Completed 07/02/2013 Not Available [facility]ending [facility] to [facility] 3 02:01:17 Anxiety state 663505428 Active 2006 Not Available [facility]ending [facility] 3 03:14:33 Problem Notes None recorded. Procedures Surgical History Date Name Laterality Status Provider Name and Address Organization Details Recorded Time Tonsillectomy completed Not Available [facility] 06/29/2011 06:05:52 Imaging Results None recorded. Procedure Notes None recorded. Medical Equipment None Reported. Allergies No known drug allergies Medications Name Sig Start Date Stop Date Status Note LastModified by Organization Details LastModified Time penicilli n V potassium 500 mg tablet Take 1 tablet every 12 hours by oral route for 10 days. 09/26 completed called to pharmacy - tn 09/16 Not Available Not Available Not Available paroxetin e 20 mg tablet Take 1 tablet every day by oral route. 2008 active Not Available Not Available Not Avai lable Vitals Date Recorded Body height Body weight Body mass index (BMI) Body temperature Heart rate Systolic blood pressure Diastolic blood pressure Provider Name and Address Organization Details Last Updated DateTime 9 168.91 cm 27426.8 6151 g 19.6 kg/m2 101.2 [degF] 68 /min 100 mm[Hg] 66 mm[Hg] Ronda Klein CMA(AAMA) [facility] 9 11:33:53 Social History Question Answer Notes LastModified by Organizat ion Details LastModified Time How Much Tobacco Do You Smoke? No Information n ot available 06/29/2011 Sex: Unknown Functional Status None recorded. Mental Status None recorded. Family History Nothing Reported. Medical History No medical history recorded. Gynecological HistoryNo gynecological history recorded. Obstetrics History GPAL:G 0 P 0 0 0 0 Past Encounters Encounter ID Performer Location Encounter Start Date Encounter Closed Date Diagnosis/Indication Diagnosis SNOMED-CT Code Diagnosis ICD10 Code Diagnosis Note [id number] [facility], OFFICE [address] [place] [address] 01/01/2007 13:23:55 01/01/2007 16:19:29 [id number] [facility], OFFICE [address] [place] [address] 03/20/2007 12:58:19 03/20/2007 15:25:12 [id number] [facility], OFFICE [address] [place] [address] 09/16/2008 10:23:02 09/17/2008 16:07:15 Health Concerns Section Related Observation LastModified by Organization Detai ls LastModified Time None Recorded Concern Status LastModified by Organization Details LastModified Time None Recorded Advance Directives Directive None Recorded Payers Encounter Date Sequence Insurance Name Policy Number Policy Martinez Covered Member ID Martinez Member ID Guarantor Name 01/01/2007 1 [place] [id number] Vicki Contreras [id number] Vicki Contreras 03/20/2007 1 [place] [id number] Vicki Contreras [id number] Vicki Contreras 09/16/2008 1 [place] [id number] Vicki Contreras [id number] Vicki Contreras OBGyn Episode No OBEpisode recorded.
[2024-08-27] VITALS (7 sets, daily range): BP systolic 93–109; BP diastolic 48–70; PULSE 73–94; RESP 11–22; TEMP 36.7–36.8; O2SAT 97–100; BMI 18.2; BMI 18.9
--- NOTE | 2024-08-27 11:36 | P.CONAN_ITS ---
[facility] Active Problems Active Problems: All Active Problems 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 (Acute) Bipolar 1 disorder, depressed, severe (Acute) Cognitive and behavioral changes (Acute) Other anxiety states (Acute) Bipolar affective, mixed, severe (Acute) Akathisia (Acute) Panic attacks (Acute) Anxiety (Acute) Past Medical History Medical History Menopause Routine medical exam Bipolar affective, mixed, severe Akathisia Panic attacks Anxiety No known health problems Functional capacity: independent ambulation Patient : No Family History Family history of problems with anesthesia: No Surgical History History of Problems with Anesthesia: No Social History Social History Household Members: Spouse Household Members Other:: Housing: House Are you a primary career placement services counselor to a significant other at home: No Do you presently have visiting nurse or other home services: No Alcohol intake: current Alcohol intake frequency: does not drink Alcohol type: wine Patient Tobacco Use Status: Never used Tobacco e-Cigarette/Vaping Use: Never Used Second Hand Smoke Exposure: No Advance Directives: No Advance Directives Information Provided: Yes Recently lost weight without trying: No Patient : No : No Poor oral hygiene: No service: No Sexual orientation: Straight/Heterosexual Meds Allergies Allergy/AdvReac Type Severity Reaction Status Date / Time No Known Allergies Allergy Verified 03/11/24 14:49 Home Medications ?Medication ?Instructions ?Recorded ?Confirmed ?Last Taken ?Type estradiol 0.0375 mg/24 hr 1 patch topical 2XW 03/11/24 03/11/24 03/11/24 History semiweekly transdermal patch progesterone micronized 100 mg 100 mg PO DAILY 03/11/24 03/11/24 03/11/24 History capsule mirtazapine 15 mg tablet 15 mg PO BEDTIME 06/02/24 06/02/24 Unknown History Exam Height,Weight and Vital Signs: Height 5 ft 7.2 in Weight 53.07 kg Last Vital Signs Temp 98.0 F 08/27/24 11:13 Pulse 77 08/27/24 11:13 Resp 16 08/27/24 11:13 BP 93/67 08/27/24 11:13 Pulse Ox 100 08/27/24 11:13 O2 Del Method Room Air 08/27/24 11:13 Airway Mallampati Class: II TM Dist: >3cm Neck ROM: Full Heart: RRR Lungs: CTA Assessment and Plan Assessment Anesthesia Assessment: Anesthesia Plan Discussed and Chart Reviewed Final Anesthetic Review Family History of Problems with Anesthesia: No History of Problems with Anesthesia: No NPO: Yes ASA Class: III Final Preanesthetic Review: Meds/Allgs Chart Reviewed, Consent Obtained/Reviewed and Anes Risks/Benef Reviewed Patient Risk: Low Procedure Risk: Low Anesthetic Plan Anesthetic Plan: GA Disposition: Standard PACU
--- NOTE | 2024-08-27 12:06 | MHC.SHP ---
Pre-Procedural Eval Section A - 24 Hr Update-Section A only Date of Service: 08/27/24 Changes since office visit: No Cold of Flu in the past 2 weeks, No New Medical Problems, No Changes in Medication and No Patient answered all questions Section B - Complete if H&P > 30 days Chief Complaint: anxiety Details of Present Illness: remains very anxious; overall not overly depressed Relevant Social History: None Medical History: No relevant PMH Allergies: Allergies Allergy/AdvReac Type Severity Reaction Status Date / Time No Known Allergies Allergy Verified 03/11/24 14:49 Review of Systems Sugical H&P ROS: Negative: Cardiovascular, Respiratory and Neurological Exam Surgical H&P Exam: Normal: Heart (RRR), Normal: Lungs (CTA b/l throughout) and Normal: Neurological (CN 2-12 grossly intact) Plan Diagnosis/Plan: Unchanged I have reviewed the history and physical and performed a pertinent physical examination on my patient. No changes have occurred unless specified. Time Spent With Patient Time: Total time managing care of this patient today ____ minutes.
--- NOTE | 2024-08-27 12:12 | HO.ECTPROC ---
ECT Procedure Note Diagnosis/Treatment Date of Service: 08/27/24 Diagnosis: Major Depressive Disorder (with anxiety) Previous ECT Date: 07/30/24 Treatment: Maintenance Interval Clinical Notes: mirtazpine lowered by outpt to 15mg (to better help w/ sleep) Time: Total time managing care of this patient today ____ minutes. ECT Settings Device: THYMATRON DGx Electrode Placement: Right Unilateral Program/Pulse Width: 0.25 Energy Percent: 70 Seizure Duration By EEG (in seconds): 74 By Motor Observation (in seconds): 46 Medications Administration General Anesthetic: Etomidate (14) Muscle Relaxant: Succinylcholine (80) Ancillary Medications Miscillaneous Medications: Propofol (30) and Other (1mg) Airway Management Airway Management: Bag Mask Ventilation Treatment Recommendations No Changes Recommended: No change Electrode Placement: Right Unilateral Program/Pulse Width: 0.25 Energy Percent: 70 Notes: good seizure at current parameters pt questioning utility of ECT maintenance as her primary complaint is anxiety. Patient will discuss with outpt provider. Pt Tolerated Procedure w/o Issue: Yes
--- OUTSIDE RECORDS SUMMARY | 2024-08-27 12:48 | XMS_ITS | Data Portability ---
Author Organization [facility] Home Service Address [address] [place] [address] Assessment Encounter Date Assessment Date Assessment LastModified by Organization Details LastModified Time 08/10/2023 08/10/2023 Patient agreed and verbally consents to this audio and video Telehealth appt via a secure platform [email or web address] Not available 08/10/2023 10:58:05 08/21/2023 08/21/2023 The patient is participating in this appointment via telemedicine communication with a phone call/video calling service ([employer]) The patient consents to use of these [...] [email or web address] Not available 08/28/2023 14:09:09 05/12/2024 05/12/2024 [id number] [place] [id number] ([employer]) : MDM LOW MUST MEET 2 OF [...] Lab TSH + free T4, serum 2023 [facility], [place], [address], 4 11:34:45 vitamin B12 + folate, serum or blood 2023 024 [facility], [place], [address], 4 11:34:45 ESR (erythrocy te sedimentat ion rate), blood 2023 024 [facility], [place], [address], 4 14:25:15 C reactive protein, QN, serum or plasma 2023 024 [facility], [place], [address], 4 14:25:15 GIBSON + rf (antinucle ar antibodies + rheumatoid factor), quantitati ve, serum 2023 024 [facility] [address], [address], 4 11:25:57 cortisol, serum or plasma 2023 024 [facility] [address], [address], 4 14:26:47 PTH (parathyro id hormone), intact, serum or plasma 2023 024 [facility], [place], [address], 4 14:25:15 CMP, serum or plasma 2023 024 [facility], [place], [address], 4 11:34:45 Referral None recorded. Procedures None recorded. Surgeries None recorded. Imaging None recorded. Medication Orders lorazepam 0.5 mg tablet 2022 024 [facility] [employer] [facility], [address] [place] [address], [place], [id number], 4 15:08:04 paroxetine 10 mg tablet [email or web address] [place] [address] [employer] [facility]62145, [address] [place] [address], [place], [id number], 4 15:15:06 lorazepam 1 mg tablet 2023 024 [facility] [employer] [facility]88406, [address] [place], [place], [id number], 4 15:08:08 Seroquel 25 mg tablet 2023 024 [facility] [employer] [facility]94087, [address] [place] [address], [place], [id number], 4 15:15:35 lorazepam 0.5 mg tablet 2023 024 [facility] [employer] [facility]49750, [address] [place] [address], [place], [id number], 4 15:08:04 hydroxyzin e HCl 25 mg tablet 2023 024 [facility] [employer] [facility]13859, [address] [place] [address], [place], [id number], 4 15:16:31 Patient TargetsNo targets recorded. Patient InstructionsNo instructions recorded. Reason for Referral None Reported. Results Created Date Observation Date Name Description Value Unit Range Abnormal Flag Note LastModifiedBy Organization Detail LastModifiedTime 03/11/20 24 03/11/2024 CT, head, w/o contr ast No observ ation record ed. [facility] (Medical Records) [address] [place], [address], 03/12/2024 08:51:04 Result Notes None recorded. Problems Name Problem SNOMED Code Status Onset Date Resolution Date Notes Provider Name and Address Organization Details Recorded Time Anxiety 23826889 Active 2017 Not Available [facility] 1 15:48:18 Colorectal cancer detected by DNA-based stool screening 486843133 Active 2021 MARQUIS GARCIA [address] [place] [address], [address], [facility] 2 09:50:42 Influenza- like symptoms 460475193 Active 2022 MARQUIS GARCIA [address] [place] [address], [address], [facility] 3 10:43:43 Menopause Active 2022 MARQUIS GARCIA [address] [place] [address], [address], [facility] 3 09:50:48 Panic attack 984008354 Active 2022 MARQUIS GARCIA [address] [place] [address], [address], [facility] 3 10:57:41 Restlessne ss and agitation 791048200 Active 2023 MARQUIS GARCIA [address] [place] [address], [address], [facility] 4 16:21:19 Acute urinary tract infection 431811872 Active 2023 MRAQUIS GARCIA [address] [place] [address], [address], [facility] 4 12:25:28 Bipolar disorder 83626400 Active 2023 MARQUIS GARCIA [address] [place], [address], [facility] 15:34:50 Problem Notes None recorded. Procedures Surgical History Date Name Laterality Status Provider Name and Address Organization Details Recorded Time 04/22/20 18 Most Recent Mammogram completed [facility] 06/11/2019 08:15:51 09/06/19 11 Date of Last Pap Smear completed [facility] 06/11/2019 08:24:48 Remove tonsils and adenoids completed November LLOYD Orellana [address] [place], [address], [facility] 06/11/2019 15:57:52 Imaging Results Imaging Date Name Status LastModified by Organiz ation Details LastModified Time 03/11/2024 CT, head, w/o contrast completed [facility] (Medical Records) [address] [place] [address], [address], 03/12/2024 08:51:04 Procedure Notes None recorded. Medical [...] Not Available Not Available Not Available Afluria 9148-8602 (PF) 45 mcg(15 mcg x 3)/0.5 mL [...] Updated DateTime 4 170.18 cm 18 kg/m2 00998.4 g 87 /min 98 % 98 % 110 mm[Hg] 70 mm[Hg] Roxanne Soriano [facility] 4 15:09:24 Date Recorded Body height Body mass index (BMI) Body weight Heart rate Oxygen saturation Oxygen saturation in Arterial blood by Pulse oximetry Systolic blood pressure Diastolic blood pressure Provider Name and Address Organization Details Last Updated DateTime 4 170.18 cm 17.2 kg/m2 39151.1 6 g 94 /min 97 % 97 % 130 mm[Hg] 68 mm[Hg] Nishi Ortega [facility] 4 15:18:57 Social History Question Answer Notes LastModified by Organizat ion Details LastModified Time Tobacco Smoking Status Never Smoker Not Available [facility] 06/15/2020 03:36:24 Do You Or Have You Ever Used E-cigarettes Or Vape? Never Used Electronic Cigarettes [id number] Information not available 06/15/2020 What Was The Date Of Your Most Recent Tobacco Screening? 05/12/2024 [email or web address] Information not available 05/12/2024 Do You Or Have You Ever Used Smokeless Tobacco? Never Used Smokeless Tobacco [id number] Information not available 06/15/2020 How Much Tobacco Do You Smoke? No [id number] Information not available 06/15/2020 How Many Years Have You Smoked Tobacco? 0 [id number] Information not available 06/15/2020 Do You Or Have You Ever Used Any Other Forms Of Tobacco Or Nicotine? No [email or web address] Information not available 05/12/2024 Sex: Unknown Functional [...] mcg/0.3 mL dose 1 completed MARQUIS GARCIA [address] [place] [address], [address], [facility] 06/26/2021 18:44:50 Influenza, split virus, quadrivalent, preservative 8 completed Zakia Gonzalez [facility] 05/22/2018 10:05:48 Influenza, split virus, quadrivalent, preservative 9 completed LLOYD Almaraz [address] [place] [address], [address], [facility] 06/11/2019 15:51:30 Tdap 7 completed Cadence LLOYD Orellana [address] [place] [address], [address], [facility] 04/09/2018 11:19:19 Past Encounters Encounter ID Performer Location Encounter Start Date Encounter Closed Date Diagnosis/Indication Diagnosis SNOMED-CT Code Diagnosis ICD10 Code Diagnosis Note [id number] November LLOYD Orellana [facility] [address] [facility],[place] [address] 04/09/2018 10:58:46 04/09/2018 11:48:08 Adult health examination 274634621 Z00.01 fasting labs reviewed and are all normal Microscopic hematuria 19 8712472 R31.21 has had neg urologic work up in past Anxiety 96456404 F41.9 paroxetine works well, has tried to taper off, but didn't tolerate Abdominal bloating 16317 9008 R14.0 ? IBS consider FODMAPS diet Abdominal pain 02081491 R10.9 [id number] [facility] [address] [facility],[place] [address] 09/18/2018 15:46:37 09/18/2018 16:35:43 Perioral dermatitis 342339198 L71.0 avoid all products trial coconut oil will trial doxy as well [id number] [facility] [address] [facility],[place] [address] 06/11/2019 15:37:33 06/11/2019 16:09:25 Adult health examination 266248544 Z00.00 Active or passive immunization 462833468 Z23 UTD Anxiety 67134917 F41.9 paroxetine works well, has tried to taper off, but didn't tolerate Vitamin D deficiency 347 15656 E55.9 Microscopic hematuria 19 2312510 R31.21 has had neg urologic work up in past [id number] MARQUIS GARCIA [facility] [address] [facility],[place] [address] 06/14/2020 15:37:36 06/14/2020 16:25:51 Anxiety 94757685 F41.9 Adult heal th examination 903277977 Z00.00 BP excellent today all concerns addressed Thoracic back pain 85040 8004 M54.6 will start with XR Low back pain 537444879 M54.5 will start with XR Screening for cardiovascular system disease 338272023 Z13.6 needs [id number] MARQUIS GARCIA [facility] [address] [facility],[place] [address] 10/24/2021 15:51:14 10/25/2021 11:35:00 Anxiety 13126238 F41.1 stablewill send in refill Adult [facility] examination 981629954 Z00.00 BP excellent today all concerns addressed [id number] MARQUIS GARCIA [facility] [address] [facility],[place] [address] 09/22/2022 09:39:50 09/22/2022 16:32:53 Influenza-like symptoms 756854286 R68.89 will see who has it in stock [id number] MARQUIS GARCIA [facility] [address] [facility],[place] [address] 01/29/2023 09:26:52 01/29/2023 11:38:09 Active or passive immunization 656324096 Z23 up to date Adult [facility] examination 213865207 Z00.00 BP excellent today all concerns addressed Menopause 058428433 N95. 1 seeing GYNwill suggest HRT Anxiety 64990418 F41.1 stablewill send in refill of the increased dosage [id number] MARQUIS GARCIA [facility] [address] [place] [address],[place] [address] 07/10/2023 13:59:24 07/11/2023 08:09:49 Acute bronchitis 74573929 J20.8 will start on a prednisone taperconti nue exporant and fluidscont inue with rest [id number] MARQUIS GARCIA [facility] [address] [place] [address],[place] [address] 08/10/2023 09:15:09 08/14/2023 09:58:18 Anxiety 94230893 F41.1 will up to 50 mg, hopefully will be able to drop it back down Panic attack 576143981 F 41.0 [id number] MARQUIS GARCIA [facility] [address] [facility],[place] [address] 08/21/2023 16:30:40 08/22/2023 08:58:06 Panic attack 334527436 F41.0 started on seroquelwi ll fu tomorrow Restlessne ss and agitation 603181405 R45.1 fu tomorrow [id number] MARQUIS GARCIA [facility] [address] [facility],[place] [address] 08/28/2023 09:51:15 08/29/2023 08:39:51 Anxiety 36142456 F41.1 will up to 50 mg, hopefully will be able to drop it back down Panic attack 462455489 F 41.0 continue 25 mg of seroquel Restlessne ss and agitation 038740476 R45.1 continue 25 mg seroquel [id number] MARQUIS GARCIA [facility] [address] [facility],[place] [address] 01/11/2024 14:55:00 01/11/2024 15:59:23 Anxiety 90513773 F41.1 will up to 50 mg, hopefully will be able to drop it back down Bipolar disorder 5054077 4 F31.10 working with [employer] for medication s [id number] Nitesh Rosenberg, [facility] [address] [facility] [address] 05/12/2024 14:56:47 05/12/2024 15:45:14 Pre-surgery evaluation 478640653 Z01.818 .per the 2020 ACC cardiac risk stratifica tion , this patient is cleared for the proposed ECT therapy . Health Concerns Section Related Observation LastModified by Organization Detai ls LastModified Time None Recorded Concern Status LastModified by Organization Details LastModified Time None Recorded Advance Directives Directive None Recorded Payers Encounter Date Sequence Insurance Name Policy Number Policy Matrinez Covered Member ID Martinez Member ID Guarantor Name 08/10/2023 1 [place] [id number] Vicki Contreras [id number] Vicki Contreras 08/21/2023 1 [place] [id number] Vicki Contreras [id number] Vicki Contreras 08/28/2023 1 [place] [id number] Vicki Contreras [id number] Vicki Contreras 01/11/2024 1 [place] [id number] Vicki Contreras [id number] Vicki Contreras 05/12/2024 1 [place] [id number] Vicki Contreras [id number] Vicki Contreras Notes Date Note Type [...] ativan twice a day MARQUIS GARCIA [address] [place], [address], [facility] 08/10/2023 11:03:08 4 text/html c/o [...] starting her on seroquel MARQUIS GARCIA [address] [place], [address], [facility] 08/21/2023 16:42:13 4 text/html c/o anxiety/mental health crisis The patient is participating in this appointment via telemedicine communication with a phone call/video calling service ([employer])The patient consents to use of these platforms [...] break through flare ups MARQUIS GARCIA [address] [place], [address], [facility] 08/28/2023 14:35:26 4 text/html hospital d/c the patient reports MARQUIS GARCIA [address] [place], [address], [facility] 01/11/2024 15:42:40 4 text/html here for rechk and is in need of medical clearancehas been getting ECT therapy and requires clearance to go further Nitesh Rosenberg DO [address] [place], [address], [facility] 05/12/2024 15:42:16 OBGyn Episode No OBEpisode recorded.
--- NOTE | 2024-08-27 14:15 | HO.POSTANES ---
Post Anesthesia Evaluation Post Anesthesia Evaluation Date of Service: 08/27/24 Vital Signs: Vital Signs Temp Pulse Resp BP Pulse Ox O2 Del Method O2 Flow Rate 08/27/24 13:23 98.2 F 78 16 109/70 100 Room Air 08/27/24 13:08 84 15 104/70 100 Room Air 08/27/24 12:53 94 21 H 96/48 L 98 Nasal Cannula with ETCO2 2 08/27/24 12:48 91 22 H 101/67 99 Nasal Cannula with ETCO2 08/27/24 12:43 75 11 L 94/61 97 Nasal Cannula with ETCO2 08/27/24 12:38 98.0 F 73 16 96/60 99 Nasal Cannula with ETCO2 2 08/27/24 11:13 98.0 F 77 16 93/67 100 Room Air Anesthesia: General Mental Status: Awake Pain Control: Satisfactory Nausea/Vomiting: None Hydration: Adequate Anesthesia-Related Issues: No Anes. Related Issues
== END 2024-08-27 13:46 | disposition home or self-care (01) ==
PROVIDERS: Psychiatry & Neurology Psychiatry; PCP Internal Medicine; Visit Provider Colon & Rectal Surgery
PROC: (CPT 90870; principal; 2024-08-27 12:00)
DX: F33.2 Major depressive disorder, recurrent severe without psychotic features (principal); F41.9 Anxiety disorder, unspecified; Z79.899 Other long term (current) drug therapy
CPT/HCPCS: 90870; J0330; J1885; J2060; J2405

== ENCOUNTER → 2024-08-27 10:54 | Outpatient (BNV) | payer BC, SELFPAY | PROVIDERS: PCP Internal Medicine; Visit Provider Psychiatry & Neurology Psychiatry | DX: F33.2 Major depressive disorder, recurrent severe without psychotic features (principal) | CPT/HCPCS: 90870 ==

== ENCOUNTER 2024-09-24 05:55 | Day surgery (SDC) | payer BC, SELFPAY ==
[2024-09-24] VITALS (7 sets, daily range): BP systolic 102–142; BP diastolic 72–94; PULSE 72–90; RESP 14–16; TEMP 36.3–36.6; O2SAT 99–100; BMI 18.6
--- OUTSIDE RECORDS SUMMARY | 2024-09-24 05:57 | XMS_ITS | Data Portability ---
Author Organization [facility], , [facility] Address [address] [place] [address] Assessment No assessment recorded. Plan of Treatment Reminders Order Date Submit Date Provider Last Modified By Organization Details Last Modified Time Details Appointments None recorded. Lab rapid strep A 2008 009 [facility], [place], [address] [place], [address], 3 03:37:43 Referral None recorded. Procedures None recorded. Surgeries None recorded. Imaging None recorded. Medication Orders paroxetine 20 mg tablet 2008 009 [facility] #53699, [address] [place], [place], [id number], 3 03:03:56 penicillin V potassium 500 mg tablet 2008 009 [facility]17, [address] [place] [place], [place], [id number], 3 03:03:56 Patient TargetsNo targets recorded. Patient Instructions Encounter Date Encounter Id Patient Instructions Last Modified By Organization Details Last Modified Time 09/16/2008 [id number].we discussed the likelihood of relapse with antidepressants. Given that she's been on and off for them about 3 times and has relapsed about 3 x 2 of which were depression, the likelihood of relapse rate is fairly high and since she is getting away with using it every two to 3 days I think she should continue to do that. [email or web address] [id number] Not available 03/13/2011 02:51:43 Reason for Referral None Reported. Results Created Date Observation Date Name Description Value Unit Range Abnormal Flag Note LastModifiedBy Organization Detail LastModifiedTime 09/16/1909/16/2008 rapid strep A Result positi ve Not Available [facility] [address] [facility], [place], [address], 09/16/2008 11:46:15 Result Notes None recorded. Problems Name Problem SNOMED Code Status Onset Date Resolution Date Notes Provider Name and Address Organization Details Recorded Time Acute pharyngiti s 084520484 Completed 07/02/2013 Not Available [facility] 3 02:01:17 Anxiety state 790110621 Active 2006 Not Available [facility] 3 03:14:33 Problem Notes None recorded. Procedures Surgical History Date Name Laterality Status Provider Name and Address Organization Details Recorded Time Tonsillectomy completed Not Available [facility] 06/29/2011 06:05:52 Imaging Results None recorded. Procedure Notes None recorded. Medical Equipment None Reported. Allergies No known drug allergies Medications Name Sig Start Date Stop Date Status Note LastModified by Organization Details LastModified Time penicilli n V potassium 500 mg tablet Take 1 tablet every 12 hours by oral route for 10 days. 09/26 completed called to pharmacy - nc 09/16 Not Available Not Available Not Available paroxetin e 20 mg tablet Take 1 tablet every day by oral route. 2008 active Not Available Not Available Not Avai lable Vitals Date Recorded Body height Body weight Body mass index (BMI) Body temperature Heart rate Systolic blood pressure Diastolic blood pressure Provider Name and Address Organization Details Last Updated DateTime 9 168.91 cm 23163.8 6151 g 19.6 kg/m2 101.2 [degF] 68 /min 100 mm[Hg] 66 mm[Hg] Ronda Klein CMA(AAMA) [facility] 9 11:33:53 Social History Question Answer Notes [...] SNOMED-CT Code Diagnosis ICD10 Code Diagnosis Note [id number] FP [facility], OFFICE [address] [place] [address] 01/01/2007 13:23:55 01/01/2007 16:19:29 [id number] [facility], OFFICE [address] [place] [address] 03/20/2007 12:58:19 03/20/2007 15:25:12 [id number] [facility], OFFICE [address] [place] [address] 09/16/2008 10:23:02 09/17/2008 16:07:15 Health Concerns Section Related Observation LastModified by Organization Detai ls LastModified Time None Recorded Concern Status LastModified by Organization Details LastModified Time None Recorded Advance Directives Directive None Recorded Payers Encounter Date Sequence Insurance Name Policy Number Policy Martinez Covered Member ID Martinez Member ID Guarantor Name 01/01/2007 1 [place] [id number] Vicki Contreras [id number] Vicki Contreras 03/20/2007 1 [place] [id number] Vicki Contreras [id number] Vicki Contreras 09/16/2008 1 [place] [id number] Vicki Contreras [id number] Vicki Contreras OBGyn Episode No OBEpisode recorded.
--- OUTSIDE RECORDS SUMMARY | 2024-09-24 05:58 | XMS_ITS | Data Portability ---
Author Organization [facility], Home Service Address [address] [place] [address] Assessment Encounter Date Assessment Date Assessment LastModified by Organization Details LastModified Time 08/10/2023 08/10/2023 Patient agreed and verbally consents to this audio and video Telehealth appt via a secure platform [email or web address] Not available 08/10/2023 10:58:05 08/21/2023 08/21/2023 The patient is participating in this appointment via telemedicine communication with a phone call/video calling service (C-Vibes) The patient consents to use of these [...] [email or web address] Not available 08/28/2023 14:09:09 05/12/2024 05/12/2024 [address] [place] [address] (COST ESTIMATING CLERK) : MDM LOW MUST MEET 2 OF [...] Organization Details Last Modified Time Details Appointments FOLLOW UP 15 2024 01:30P MARQUIS STARKS Not available Not available Not available Lab TSH + free T4, serum 2023 024 [facility], [place], [address], 08/30/2023 11:34:45 vitamin B12 + folate, serum or blood 2023 024 [facility], [place], [address], 08/30/2023 11:34:45 ESR (erythroc yte sedimenta tion rate), blood 2023 024 [facility], [place], [address], 08/28/2023 14:25:15 C reactive protein, QN, serum or plasma 2023 024 [facility], [place], [address], 08/28/2023 14:25:15 GIBSON + rf (antinucl ear antibodie s + rheumatoi d factor), quantitat stacey, serum 2023 024 [facility] [address], [address], 09/03/2023 11:25:57 cortisol, serum or plasma 2023 024 [facility] [address], [address], 08/28/2023 14:26:47 PTH (parathyr oid hormone), intact, serum or plasma 2023 024 [facility], [place], [address], 08/28/2023 14:25:15 CMP, serum or plasma 2023 024 [facility], [place], [address], 08/30/2023 11:34:45 Referral None recorded. Procedures None recorded. Surgeries None recorded. Imaging None recorded. Medication Orders lorazepam 0.5 mg tablet 2022 024 [facility], [address] [place], [place], [id number], 01/11/2024 15:08:04 paroxetin e 10 mg tablet [email or web address] [place] [address] [facility], [address] [place], [place], [id number], 05/12/2024 15:15:06 lorazepam 1 mg tablet 2023 024 [address] [facility] [address], [address] [place], [place], [id number], 01/11/2024 15:08:08 Seroquel 25 mg tablet 2023 024 [facility], [address] [place], [place], [id number], 05/12/2024 15:15:35 lorazepam 0.5 mg tablet 2023 024 [email or web address], [address] [place], [place], [id number], 01/11/2024 15:08:04 hydroxyzi ne HCl 25 mg tablet [address] [facility]52520, [address] [place], [place], [id number], 05/12/2024 15:16:31 Patient TargetsNo targets recorded. Patient InstructionsNo instructions recorded. Reason for Referral None Reported. Results Created Date Observation Date Name Description Value Unit Range Abnormal Flag Note LastModifiedBy Organization Detail LastModifiedTime 03/11/20 24 03/11/2024 CT, head, w/o contr ast No observ ation record ed. [facility] (Medical Records) [address] [place], [address], 03/12/2024 08:51:04 Result Notes None recorded. Problems Name Problem SNOMED Code Status Onset Date Resolution Date Notes Provider Name and Address Organization Details Recorded Time Anxiety 57950359 Active 2017 Not Available [facility] 1 15:48:18 Colorectal cancer detected by DNA-based stool screening 251999458 Active 2021 MARQUIS GARCIA [address] [place] [address], [address], [facility] 2 09:50:42 Influenza- like symptoms 249612945 Active 2022 MARQUIS GARCIA [address] [place] [address], [address], [facility] 3 10:43:43 Menopause Active 2022 MARQUIS GARCIA [address] [place] [address], [address], [facility] 3 09:50:48 Panic attack 748482255 Active 2022 MARQUIS GARCIA [address] [place] [address], [address], [facility] 3 10:57:41 Restlessne ss and agitation 975432554 Active 2023 MARQUIS GARCIA [address] [place] [address], [address], [facility] 4 16:21:19 Acute urinary tract infection 402031839 Active 2023 MARQUIS GARCIA [address] [place] [address], [address], [facility] 4 12:25:28 Bipolar disorder 00917211 Active 2023 MARQUIS GARCIA [address] [place], [address], [facility] 4 15:34:50 Problem Notes None recorded. Procedures Surgical History Date Name Laterality Status Provider Name and Address Organization Details Recorded Time 04/22/20 18 Most Recent Mammogram completed [facility] 06/11/2019 08:15:51 09/06/19 11 Date of Last Pap Smear completed [facility] 06/11/2019 08:24:48 Remove tonsils and adenoids completed Cadence LLOYD Orellana [address] [place], [address], [facility] 06/11/2019 15:57:52 Imaging Results Imaging Date Name Status LastModified by Organiz ation Details LastModified Time 03/11/2024 CT, head, w/o contrast completed [facility] (Medical Records) [address] [place] [address], [address], 03/12/2024 08:51:04 Procedure Notes None recorded. Medical [...] Not Available Not Available Not Available Afluria 9363-7659 (PF) 45 mcg(15 mcg x 3)/0.5 mL [...] Updated DateTime 4 170.18 cm 18 kg/m2 85347.4 g 87 /min 98 % 98 % 110 mm[Hg] 70 mm[Hg] Roxanne Soriano [facility] 4 15:09:24 Date Recorded Body height Body mass index (BMI) Body weight Heart rate Oxygen saturation Oxygen saturation in Arterial blood by Pulse oximetry Systolic blood pressure Diastolic blood pressure Provider Name and Address Organization Details Last Updated DateTime 4 170.18 cm 17.2 kg/m2 87023.1 6 g 94 /min 97 % 97 % 130 mm[Hg] 68 mm[Hg] Nishi Ortega [facility] 4 15:18:57 Social History Question Answer Notes LastModified by Organizat ion Details LastModified Time Tobacco Smoking Status Never Smoker Not Available [facility] 06/15/2020 03:36:24 Do You Or Have You Ever Used E-cigarettes Or Vape? Never Used Electronic Cigarettes [id number] Information not available 06/15/2020 What Was The Date Of Your Most Recent Tobacco Screening? 05/12/2024 [email or web address] Information not available 05/12/2024 Do You Or Have You Ever Used Smokeless Tobacco? Never Used Smokeless Tobacco [id number] Information not available 06/15/2020 How Much Tobacco Do You Smoke? No [id number] Information not available 06/15/2020 How Many Years Have You Smoked Tobacco? 0 [id number] Information not available 06/15/2020 Do You Or Have You Ever Used Any Other Forms Of Tobacco Or Nicotine? No [email or web address] Information not available 05/12/2024 Sex: Unknown Functional [...] mcg/0.3 mL dose 1 completed MARQUIS GARCIA [address] [place] [address], [address], [facility] 06/26/2021 18:44:50 Influenza, split virus, quadrivalent, preservative 8 [facility] 05/22/2018 10:05:48 Influenza, split virus, quadrivalent, preservative 9 completed LLOYD Almaraz [address] [place], [address], [facility] 06/11/2019 15:51:30 Tdap 7 completed LLODY Almaraz [address] [place] [address], [address], [facility] 04/09/2018 11:19:19 Past Encounters Encounter ID Performer Location Encounter Start Date Encounter Closed Date Diagnosis/Indication Diagnosis SNOMED-CT Code Diagnosis ICD10 Code Diagnosis Note [id number] [facility] [address] [facility], [place] [address] 04/09/2018 10:58:46 04/09/2018 11:48:08 Adult health examination 048007059 Z00.01 fasting labs reviewed and are all normal Microscopic hematuria 19 8620979 R31.21 has had neg urologic work up in past Anxiety 37476423 F41.9 paroxetine works well, has tried to taper off, but didn't tolerate Abdominal bloating 46118 9008 R14.0 ? IBS consider FODMAPS diet Abdominal pain 32765338 R10.9 [id number] [facility] [address] [facility], [place] [address] 09/18/2018 15:46:37 09/18/2018 16:35:43 Perioral dermatitis 268621797 L71.0 avoid all products trial coconut oil will trial doxy as well [id number] [facility] [address] [facility], [place] [address] 06/11/2019 15:37:33 06/11/2019 16:09:25 Adult health examination 178938933 Z00.00 Active or passive immunization 574384869 Z23 UTD Anxiety 18355037 F41.9 paroxetine works well, has tried to taper off, but didn't tolerate Vitamin D deficiency 347 71477 E55.9 Microscopic hematuria 19 2922251 R31.21 has had neg urologic work up in past [id number] MARQUIS GARCIA [facility] [address] [facility], [address] [facility] [place] [address] 06/14/2020 15:37:36 06/14/2020 16:25:51 Anxiety 64614618 F41.9 Adult heal th examination 222084670 Z00.00 BP excellent today all concerns addressed Thoracic back pain 93947 8004 M54.6 will start with XR Low back pain 569091084 M54.5 will start with XR Screening for cardiovascular system disease 460957580 Z13.6 needs [id number] MARQUIS GARCIA [facility] [address] [facility] [address] [address] 10/24/2021 15:51:14 10/25/2021 11:35:00 Anxiety 08871801 F41.1 stablewill send in refill Adult heal th examination 474064534 Z00.00 BP excellent today all concerns addressed [id number] MARQUIS GARCIA [facility] [address] [facility] [address],[place] [address] 09/22/2022 09:39:50 09/22/2022 16:32:53 Influenza-like symptoms 459109800 R68.89 will see who has it in stock [id number] MARQUIS GARCIA [facility] Internal [facility] [address] [facility] [address],[place] [address] 01/29/2023 09:26:52 01/29/2023 11:38:09 Active or passive immunization 628250943 Z23 up to date Adult [facility] examination 373999366 Z00.00 BP excellent today all concerns addressed Menopause 195355188 N95. 1 seeing GYNwill suggest HRT Anxiety 79518684 F41.1 stablewill send in refill of the increased dosage [id number] MARQUIS GARCIA [facility] Internal [facility] [address] [facility] [address],[place] [address] 07/10/2023 13:59:24 07/11/2023 08:09:49 Acute bronchitis 46975300 J20.8 will start on a prednisone taperconti nue exporant and fluidscont inue with rest [id number] MARQUIS GARCIA [facility] [address] [facility] [address],[place] [address] 08/10/2023 09:15:09 08/14/2023 09:58:18 Anxiety 88095192 F41.1 will up to 50 mg, hopefully will be able to drop it back down Panic attack 881908760 F 41.0 [id number] MARQUIS GARCIA [facility] [address] [facility] [address],[place] [address] 08/21/2023 16:30:40 08/22/2023 08:58:06 Panic attack 032824629 F41.0 started on seroquelwi ll fu tomorrow Restlessne ss and agitation 004360137 R45.1 fu tomorrow [id number] MARQUIS GARCIA [facility] [address] [facility] [address],[place] [address] 08/28/2023 09:51:15 08/29/2023 08:39:51 Anxiety 29615291 F41.1 will up to 50 mg, hopefully will be able to drop it back down Panic attack 444429262 F 41.0 continue 25 mg of seroquel Restlessne ss and agitation 654298673 R45.1 continue 25 mg seroquel [id number] MARQUIS GARCIA [facility] Internal [facility] [address] [facility] [address],[place] [address] 01/11/2024 14:55:00 01/11/2024 15:59:23 Anxiety 04682258 F41.1 will up to 50 mg, hopefully will be able to drop it back down Bipolar disorder 7826169 4 F31.10 working with COST ESTIMATING CLERK for medication s [id number] Nitesh Rosenberg, [facility] [address] [facility] [address],[place] [address] 05/12/2024 14:56:47 05/12/2024 15:45:14 Pre-surgery evaluation 094601367 Z01.818 .per the 2020 ACC cardiac risk [...] Guarantor Name 08/10/2023 1 [place] [id number] Vicki Contreras [id number] Vicki Contreras 08/21/2023 1 [place] [id number] Vicki Contreras [id number] Vicki Contreras 08/28/2023 1 [place] [id number] Vicki Contreras [id number] Vicki Contreras 01/11/2024 1 [place] [id number] Vicki Contreras [id number] Vicki Contreras 05/12/2024 1 [place] [id number] Vicki Contreras [id number] Vicki Contreras Notes Date Note Type [...] with ativan twice a day MARQUIS GARCIA [address] [place] [address], [address], [facility] 08/10/2023 11:03:08 4 text/html c/o SEVERE ANXIETY acute stress/panic, conversation was 40 minutessuggest ED admit if she continues with these severe symptoms The patient presents to the office today for follow-up management of their ongoing depression/anxiety symptoms The patient's symptoms started after [place] she has been extremely anxious and panickyThe [...] starting her on seroquel MARQUIS GARCIA [address] [place], [address], [facility] 08/21/2023 16:42:13 4 text/html c/o anxiety/mental health crisis The patient is participating in this appointment via telemedicine communication with a phone call/video calling service (C-Vibes)The patient consents to use of these platforms [...] break through flare ups MARQUIS GARCIA [address] [place], [address], [facility] 08/28/2023 14:35:26 4 text/html hospital d/c the patient reports MARQUIS GARCIA [address] [place], [address], [facility] 01/11/2024 15:42:40 4 text/html here for rechk and is in need of medical clearancehas been getting ECT therapy and requires clearance to go further Nitesh Rosenberg DO [address] [place], [address], [facility] 05/12/2024 15:42:16 OBGyn Episode No OBEpisode recorded.
--- NOTE | 2024-09-24 06:34 | ECG_ITS ---
Test Reason : ECT Blood Pressure : */* mmHG Vent. Rate : 71 BPM Atrial Rate : 71 BPM P-R Int : 136 ms QRS Dur : 100 ms QT Int : 384 ms P-R-T Axes : 67 78 59 degrees QTcB Int : 417 ms Normal sinus rhythm Incomplete right bundle branch block Borderline ECG When compared with ECG of 11-Mar-2024 14:48, No significant change was found Referred By: Tati Dinero Electronically Signed By: YINKA ERICKSON MD
[2024-09-24] MEDS: Lactated Ringers 1,000 ML 100 ML IVCONT (06:51)
--- NOTE | 2024-09-24 07:18 | MHC.SHP ---
Pre-Procedural Eval Section A - 24 Hr Update-Section A only Date of Service: 09/24/24 Changes since office visit: No Cold of Flu in the past 2 weeks, No New Medical Problems, No Changes in Medication and No Patient answered all questions Section B - Complete if H&P > 30 days Chief Complaint: depression Details of Present Illness: improved now on gabapentin dec mirtazapine Relevant Social History: None Medical History: No relevant PMH Allergies: Allergies Allergy/AdvReac Type Severity Reaction Status Date / Time No Known Allergies Allergy Verified 03/11/24 14:49 Review of Systems Sugical H&P ROS: Negative: Cardiovascular, Respiratory and Neurological Exam Surgical H&P Exam: Normal: Heart (RRR), Normal: Lungs (clear) and Normal: Neurological (alert no confusion) Exam Comment: alert no c/o side effects Plan Diagnosis/Plan: Unchanged I have reviewed the history and physical and performed a pertinent physical examination on my patient. No changes have occurred unless specified. Time Spent With Patient Time: Total time managing care of this patient today ____ minutes.
--- NOTE | 2024-09-24 07:33 | HO.ECTPROC ---
ECT Procedure Note Diagnosis/Treatment Date of Service: 09/29/24 Diagnosis: Major Depressive Disorder (with anxiety) Previous ECT Date: 07/30/24 Treatment: Maintenance Interval Clinical Notes: mirtazpine lowered by outpt to 7.5 mg now on gabapentin able to fx still tends to ruminate we did discuss gradually tapering ect to see if tolerated Time: Total time managing care of this patient today ____ minutes. ECT Settings Device: THYMATRON DGx Electrode Placement: Right Unilateral Program/Pulse Width: 0.50 Energy Percent: 70 Seizure Duration By EEG (in seconds): 44 Medications Administration General Anesthetic: Etomidate (14) Muscle Relaxant: Succinylcholine (80) Ancillary Medications Anti-emetics: Zofran - Pre ECT Miscillaneous Medications: Propofol (30) and Other (1mg lorazepam) Airway Management Airway Management: Bag Mask Ventilation Treatment Recommendations No Changes Recommended: No change Electrode Placement: Right Unilateral Program/Pulse Width: 0.25 Energy Percent: 70 Notes: good seizure at current parameters pt questioning utility of ECT maintenance as her primary complaint is anxiety. Patient will discuss with outpt provider. Pt Tolerated Procedure w/o Issue: Yes
[2024-09-24] MEDS: LORazepam 2 MG/ML VIAL 1 MG IVPUSH (07:53)
== END 2024-09-24 08:59 | disposition home or self-care (01) ==
PROVIDERS: PCP Internal Medicine; Visit Provider Psychiatry & Neurology Psychiatry
PROC: (CPT 90870; principal; 2024-09-24 07:00)
DX: F33.2 Major depressive disorder, recurrent severe without psychotic features (principal); F41.9 Anxiety disorder, unspecified; Z79.899 Other long term (current) drug therapy
CPT/HCPCS: 90870; 93005; J0330; J2060; J2704

== ENCOUNTER → 2024-09-24 05:55 | Outpatient (BNV) | payer BC, SELFPAY | PROVIDERS: PCP Internal Medicine; Visit Provider Psychiatry & Neurology Psychiatry | DX: F33.3 Major depressive disorder, recurrent, severe with psychotic symptoms (principal) | CPT/HCPCS: 90870 ==

== ENCOUNTER → 2024-09-24 06:34 | Outpatient (BNV) | payer BC, SELFPAY | PROVIDERS: PCP Internal Medicine; Visit Provider Internal Medicine Cardiovascular Disease | DX: I45.10 Unspecified right bundle-branch block (principal) | CPT/HCPCS: 93010 ==

== ENCOUNTER 2024-10-23 14:44 | Outpatient (AMB) | payer BC, SELFPAY ==
--- NOTE | 2024-10-23 15:46 | MHC.OFFVISPS ---
Intake Intake Visit Reasons: f/u appt to ECT Allergies No Known Allergies Allergy (Verified 03/11/24 14:49) Medication List - Last Reconciled 10/23/24 by Prasanna Cancino MD estradiol 1 patch topical 2XW gabapentin 300 mg PO 3XD hydroxyzine HCl 25 mg PO BEDTIME 30 days hydroxyzine HCl 25 mg PO BEDTIME lorazepam 1 tab in the am 1 tab aft 1/2tab bedtime 2 weeks mirtazapine 15 mg PO BEDTIME olanzapine 2.5 mg PO BEDTIME progesterone micronized 100 mg PO DAILY propranolol 5 mg (1/2 x 10 mg) PO TID PRN HPI- Psychiatric Chief Complaint: f/u appt to ECT HPI Narrative: Patient seen with her she recently has been doing much better. She had been getting ECT every 5 weeks there is some retrograde amnesia for certain details of her past such as particulars over honeymoon. She has been remembering things going forward her mood is much more stable feeling significantly more like herself. She is on olanzapine and gabapentin. It is still not clear when she came in initially further thoughts a serotonin syndrome with delirium that responded to ECT her agitated catatonia she had not been processing information for a number of months. Patient is seen by [facility] for medication management. Patient is not delirious nor confused Past Psychiatric History: Partial hospital admission in December [facility] admission in December on 3 No substance abuse treatment hx Denies hx of suicide attempts or SIBs Denies hx of aggression Reports history of PPD/ depression after both pregnancies (on Paxil) Psych provider: Denise Williamson PNP PCP: Nitesh Rosenberg DO Previous trials: lamotrigine (as high as 75 mg/d since Aug, recently discontinued) See above Mental Status Exam Mental Status Exam Patient Appearance: Appropriate Patient Orientation: Person, Place and Situation Level of Consciousness: Awake and Alert Patient Behavior: Appropriate and Talkative Mood Description: Anxious (Much less intense) Affect Description: Constricted Patient Cognition Impaired: No Ability to Follow Directions: Good Speech Pattern: Clear Memory Description: Remote Impaired and Short Term Intact Hallucinations: None Delusions: Not Present Judgement: Good Judgement and Insight: Spoke with patient and mood good processing information well no difficulty with short-term memory and executive functioning work going well unclear reason for past difficulty with earlier older memories whether that related to unilateral ECT which was not apparent before or toxic metabolic delirium when she was 1st seen Assessment and Plan Assessment & Plan (1) 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: Status: Acute Code(s): F06.30 - Mood disorder due to known physiological condition, unspecified Plan ECT currently discontinued patient and her know how to contact this com writer needed given spotty retrograde amnesia does not interfering with her quality of life but would try and avoid further ECT although unclear if this was the contributing factor or initial question serotonergic delirium Patient reasoning executive function antegrade in memory processing seems intact Patient appears in remission will continue with handle behavioral health Medications: Discontinued propranolol 1/2-1 tab 3 x day for anxiety restlessness hold systolic less than 100 pulse less than 60 Discontinued Reason: Patient no longer taking 5 mg (1/2 x 10 mg) PO TID PRN 90 tabs 0RF anxiety Counseling and coordination of Care Details-Self Mgmt counseling: Patient or understands we have left it open for future treatment risks benefits alternatives reviewed Details: I spent [] minutes reviewing the record, seeing the patient and documenting in the medical record. Counseling provided to the patient/caregiver as outlined below. Addressed patient/caregiver concerns regarding current medication regime including effective adherence. Addressed patient/caregiver concerns regarding diagnosis and prognosis including accuracy of diagnosis, prognosis over time, impact of diagnosis. Addressed patient/caregiver concerns regarding impact of recent stressors. COUNTS INCLUDE 234 BEDS AT THE [facility] Medical History Menopause Routine medical exam Bipolar affective, mixed, severe Akathisia Panic attacks Anxiety No known health problems Social History Household Members: Spouse Household Members Other:: Housing: House Are you a primary healthcare corporate account director to a significant other at home: No Do you presently have visiting nurse or other home services: No Alcohol intake: current Alcohol intake frequency: does not drink Alcohol type: wine Patient Tobacco Use Status: Never used Tobacco e-Cigarette/Vaping Use: Never Used Second Hand Smoke Exposure: No service: No Sexual orientation: Straight/Heterosexual Social History: LIves at home with Has 2 adult children ages 28 and 25 Works as a paraprofessional at an elementary school, currently on leave from work since 12/12 Tried to return to work unable to function Substance History: na Trauma History: denies Coding Level of Care Code Est Pt Level 4 (59580) Diagnoses 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
--- OUTSIDE RECORDS SUMMARY | 2024-10-23 18:31 | XMS_ITS | Data Portability ---
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) : MDM LOW MUST MEET 2 OF [...] TSH + free T4, serum 2023 024 [email or web address], [place], [address], 4 11:34:45 vitamin B12 + folate, serum or blood 2023 024 [email or web address], [place], [address], 4 11:34:45 ESR (erythrocy te sedimentat ion rate), blood 2023 024 [facility], [place], [address], 4 14:25:15 C reactive protein, QN, serum or plasma 2023 024 [facility], [place], [address], 4 14:25:15 GIBSON + rf (antinucle ar antibodies + rheumatoid factor), quantitati ve, serum 2023 024 [email or web address] [address], [address], 4 11:25:57 cortisol, serum or plasma 2023 024 [facility] [address], [address], 4 14:26:47 PTH (parathyro id hormone), intact, serum or plasma 2023 024 [facility], [place], [address], 4 14:25:15 CMP, serum or plasma 2023 024 [email or web address], [place], [address], 4 11:34:45 Referral None recorded. Procedures None recorded. Surgeries None recorded. Imaging None recorded. Medication Orders lorazepam 1 mg tablet 2023 024 [email or web address] [id number], [address] [place], [place], [id number], 4 15:08:08 Seroquel 25 mg tablet 2023 024 [facility][id number], [address] [place], [place], [id number], 4 15:15:35 lorazepam 0.5 mg tablet 2023 024 [facility], [address], [place], [id number], 5 13:37:58 hydroxyzin e HCl 25 mg tablet 2023 024 [facility]54706, [address] [place], [place], [id number], 4 15:16:31 Patient TargetsNo targets recorded. Patient InstructionsNo instructions recorded. Reason for Referral None Reported. Results Created Date Observation Date Name Description Value Unit Range Abnormal Flag Note LastModifiedBy Organization Detail LastModifiedTime 03/11/20 24 03/11/2024 CT, head, w/o contr ast No observ ation record ed. [facility] (Medical Records) [address] [place], [address], 03/12/2024 08:51:04 Result Notes None recorded. Problems Name Problem SNOMED Code Status Onset Date Resolution Date Notes Provider Name and Address Organization Details Recorded Time Anxiety 18448496 Active 2017 Not Available [facility] 1 15:48:18 Colorectal cancer detected by DNA-based stool screening 474174248 Active 2021 MARQUIS GARCIA [address] [place], [address], [facility] 2 09:50:42 Influenza- like symptoms 771053247 Active 2022 MARQUIS GARCIA [address] [place] [address], [address], [facility] 3 10:43:43 Menopause Active 2022 MARQUIS GARCIA [address] [place] [address], [address], [facility] 3 09:50:48 Panic attack 584196649 Active 2022 MARQUIS GARCIA [address] [place] [address], [address], [facility] 3 10:57:41 Restlessne ss and agitation 560634969 Active 2023 MARQUIS GARCIA [address] [place] [address], [address], [facility] 4 16:21:19 Acute urinary tract infection 283072870 Active 2023 MARQUIS GARCIA [address] [place] [address], [address], [facility] 4 12:25:28 Bipolar disorder 15132419 Active 2023 MARQUIS GARCIA [address] [place] [address], [address], [facility] 4 15:34:50 Problem Notes None recorded. Procedures Surgical History Date Name Laterality Status Provider Name and Address Organization Details Recorded Time 04/22/20 18 Most Recent Mammogram completed [facility] 06/11/2019 08:15:51 09/06/19 11 Date of Last Pap Smear completed [facility] 06/11/2019 08:24:48 Remove tonsils and adenoids completed November LOLYD Orellana [address] [place] [address], [address], [facility] 06/11/2019 15:57:52 Imaging Results Imaging Date Name Status LastModified by Organiz ation Details LastModified Time 03/11/2024 CT, head, w/o contrast completed [email or web address] [facility] (Medical Records) [address] [facility], [place], [address], 03/12/2024 08:51:04 Procedure Notes None recorded. Medical [...] TAKE 1 TABLET BY MOUTH TWICE DAILY 09/30 completed Not Available Not Available Not Available clindamycin 1 % topical gel 06/11 completed Not Available Not Available Not Available paroxetine 20 mg tablet TAKE 1 TABLET BY MOUTH DAILY IN THE MORNING 01/10 completed Not Available Not Available Not Available mirtazapine 30 mg tablet TAKE 1 TABLET BY MOUTH 1 TIME A DAY AT BEDTIME 09/30 completed Not Available Not Available Not Available oseltamivir 75 mg capsule TAKE 1 CAPSULE BY MOUTH TWICE DAILY FOR 5 DAYS 08/10 completed Not Available Not Available Not Available minocycline 50 mg capsule 06/11 completed Not Available Not Available Not Available gabapentin 300 mg capsule TAKE 1 CAPSULE BY MOUTH THREE TIMES DAILY active Not Available Not Available No t Available sertraline 25 mg tablet TAKE 1 [...] MOUTH 1 TIME A DAY AT BEDTIME 09/30 completed Not Available Not Available Not Available ergocalcife rol (vitamin D2) 1,250 mcg (50,000 unit) capsule TAKE 1 CAPSULE BY MOUTH ONE TIME PER WEEK 01/10 completed Not Available Not Available Not Available lorazepam 1 mg tablet TAKE 1 TABLET BY MOUTH IN THE MORNING AND 0.5 TABLET 2 TIMES A DAY ONCE IN THE AFTERNOON AND ONCE AT BEDTIME active Not Available Not Available [...] Available progesteron e micronized 100 mg capsule take 1 capsule qd po active Not Available Not Available No t Available aripiprazol e 5 mg tablet TAKE [...] Not Available Not Available Not Available Afluria 8378-1191 (PF) 45 mcg(15 mcg x 3)/0.5 mL intramuscul ar syringe 04/09 completed Not Available Not Available Not Available Afluria Quad 6166-3964 (PF) 60 mcg (15 mcg x 4)/0.5 mL IM syringe 06/11 completed Not Available Not Available Not Available Afluria Qd 2019-20 (36 mos up)(PF)60 mcg (15 mcg x4)/0.5 [...] Updated DateTime 4 170.18 cm 18 kg/m2 16186.4 g 87 /min 98 % 98 % 110 mm[Hg] 70 mm[Hg] Roxanne Soriano [facility] 4 15:09:24 Date Recorded Body height Body mass index (BMI) Body weight Heart rate Oxygen saturation Oxygen saturation in Arterial blood by Pulse oximetry Systolic blood pressure Diastolic blood pressure Provider Name and Address Organization Details Last Updated DateTime 4 170.18 cm 17.2 kg/m2 61205.1 6 g 94 /min 97 % 97 % 130 mm[Hg] 68 mm[Hg] Nishi Ortega [facility] 4 15:18:57 Date Recorded Body height Body mass index (BMI) Body weight Heart rate Oxygen saturation Oxygen saturation in Arterial blood by Pulse oximetry Systolic blood pressure Diastolic blood pressure Provider Name and Address Organization Details Last Updated DateTime 5 170.18 cm 18.2 kg/m2 58689.4 3 g 93 /min 96 % 96 % 112 mm[Hg] 68 mm[Hg] Roxanne Soriano [facility] 5 13:30:56 Social History Question Answer Notes LastModified by Organizat ion Details LastModified Time Tobacco Smoking Status Never Smoker Not Available [facility] 06/15/2020 03:36:24 Do You Or Have You Ever Used E-cigarettes Or Vape? Never Used Electronic Cigarettes [id number] Information not available 06/15/2020 What Was The Date Of Your Most Recent Tobacco Screening? 09/30/2024 [email or web address] Information not available 09/30/2024 Do You Or Have You Ever Used Smokeless Tobacco? Never Used Smokeless Tobacco [id number] Information not available 06/15/2020 How Much Tobacco Do You Smoke? No [id number] Information not available 06/15/2020 How Many Years Have You Smoked Tobacco? 0 [id number] Information not available 06/15/2020 Do You Or Have You Ever Used Any Other Forms Of Tobacco Or Nicotine? No [email or web address] Information not available 05/12/2024 Sex: Unknown Functional [...] mcg/0.3 mL dose 1 completed MARQUIS GARCIA [address] [place] [address], [address], [facility] 06/26/2021 18:44:50 Influenza, split virus, quadrivalent, preservative 8 [facility] 05/22/2018 10:05:48 influenza, unspecified formulation 4 completed MARQUIS GARCIA [address] [place] [address], [address], [facility] 09/30/2024 13:41:37 Influenza, split virus, quadrivalent, preservative 9 completed LLOYD Almaraz [address] [place] [address], [address], [facility] 06/11/2019 15:51:30 Tdap 7 completed Cadence LLOYD Orellana [address] [place] [address], [address], [facility] 04/09/2018 11:19:19 Past Encounters Encounter ID Performer Location Encounter Start Date Encounter Closed Date Diagnosis/Indication Diagnosis SNOMED-CT Code Diagnosis ICD10 Code Diagnosis Note [id number] [facility] [address] [facility],[place] [address] 04/09/2018 10:58:46 04/09/2018 11:48:08 Adult health examination 182725207 Z00.01 fasting labs reviewed and are all normal Microscopic hematuria 19 6346402 R31.21 has had neg urologic work up in past Anxiety 72736208 F41.9 paroxetine works well, has tried to taper off, but didn't tolerate Abdominal bloating 63862 9008 R14.0 ? IBS consider FODMAPS diet Abdominal pain 04598792 R10.[id number] [facility] [address] [facility], [place] [address] 09/18/2018 15:46:37 09/18/2018 16:35:43 Perioral dermatitis 600014209 L71.0 avoid all products trial coconut oil will trial doxy as well [id number] [facility] [address] [facility], [place] [address] 06/11/2019 15:37:33 06/11/2019 16:09:25 Adult health examination 883462075 Z00.00 Active or passive immunization 728616485 Z23 UTD Anxiety 72702928 F41.9 paroxetine works well, has tried to taper off, but didn't tolerate Vitamin D deficiency 347 56680 E55.9 Microscopic hematuria 19 2036667 R31.21 has had neg urologic work up in past [id number] MARQUIS GARCIA [facility] [address] [facility], [place] [address] 06/14/2020 15:37:36 06/14/2020 16:25:51 Anxiety 22054927 F41.9 Adult heal th examination 172530924 Z00.00 BP excellent today all concerns addressed Thoracic back pain 81321 8004 M54.6 will start with XR Low back pain 429873850 M54.5 will start with XR Screening for cardiovascular system disease 340256662 Z13.6 needs [id number] MARQUIS GARCIA [facility] [address] [facility] [address] [address] 10/24/2021 15:51:14 10/25/2021 11:35:00 Anxiety 64099512 F41.1 stablewill send in refill Adult [facility] examination 105166864 Z00.00 BP excellent today all concerns addressed [id number] MARQUIS GARCIA [facility] [address] [facility] [address] [place] [address] 09/22/2022 09:39:50 09/22/2022 16:32:53 Influenza-like symptoms 137635530 R68.89 will see who has it in stock [id number] MARQUIS GARCIA [facility] [address] [facility] [address] [place] [address] 01/29/2023 09:26:52 01/29/2023 11:38:09 Active or passive immunization 984510419 Z23 up to date Adult [facility] examination 984388175 Z00.00 BP excellent today all concerns addressed Menopause 097422085 N95. 1 seeing GYNwill suggest HRT Anxiety 09661256 F41.1 stablewill send in refill of the increased dosage [id number] MARQUIS GARCIA [facility] [address] [facility] [address] [place] [address] 07/10/2023 13:59:24 07/11/2023 08:09:49 Acute bronchitis 28272142 J20.8 will start on a prednisone taperconti nue exporant and fluidscont inue with rest [id number] MARQUIS GARCIA [facility] [address] [facility] [address] [place] [address] 08/10/2023 09:15:09 08/14/2023 09:58:18 Anxiety 84093154 F41.1 will up to 50 mg, hopefully will be able to drop it back down Panic attack 198179865 F 41.0 [id number] MARQUIS GARCIA [facility] [address] [facility] [address],[place] [address] 08/21/2023 16:30:40 08/22/2023 08:58:06 Panic attack 694783617 F41.0 started on seroquelwi ll fu tomorrow Restlessne ss and agitation 136902160 R45.1 fu tomorrow [id number] MARQUIS GARCIA [facility] [address] [facility],[place] [address] 08/28/2023 09:51:15 08/29/2023 08:39:51 Anxiety 31513014 F41.1 will up to 50 mg, hopefully will be able to drop it back down Panic attack 118614668 F 41.0 continue 25 mg of seroquel Restlessne ss and agitation 229102565 R45.1 continue 25 mg seroquel [id number] MARQUIS GARCIA [facility] [address] [facility] [address] [address] 01/11/2024 14:55:00 01/11/2024 15:59:23 Anxiety 61710642 F41.1 will up to 50 mg, hopefully will be able to drop it back down Bipolar disorder 2642054 4 F31.10 working with [employer] for medication s [id number] Nitesh Rosenberg, [facility] [address] [facility],[place] [address] 05/12/2024 14:56:47 05/12/2024 15:45:14 Pre-surgery evaluation 844425590 Z01.818 .per the 2020 ACC cardiac risk stratifica tion , this patient is cleared for the proposed ECT therapy . [id number] MARQUIS GARCIA [facility] [address] [facility] [address],[place] [address] 09/30/2024 13:19:50 09/30/2024 13:54:17 Anxiety 86872870 F41.1 follows with psych Bipolar disorder 8821099 4 F31.10 follows with psych Pre-surger y evaluation 145772223 Z01.818 patient cleared for ECT treatments Health Concerns Section Related Observation LastModified by Organization Detai ls LastModified Time None Recorded Concern Status LastModified by Organization Details LastModified Time None Recorded Advance Directives Directive None Recorded Payers Encounter Date Sequence Insurance Name Policy Number Policy Martinez Covered Member ID Martinez Member ID Guarantor Name 08/21/2023 1 [place] [id number] Vicki Contreras [id number] Vicki Contreras 08/28/2023 1 [place] [id number] Vicki Contreras [id number] Vicki Contreras 01/11/2024 1 [place] [id number] Vicki Contreras [id number] Vicki Contreras 05/12/2024 1 [place] [id number] Vicki Contreras [id number] Vicki Contreras 09/30/2024 1 [place] [id number] Vicki Contreras [id number] Vicki Contreras Notes Date Note Type Note Provider Name a nd Address Organization Details Recorded Time 4 text/html c/o SEVERE ANXIETY acute stress/panic, conversation was 40 minutessuggest ED admit if she continues with these severe symptoms The patient presents to the office today for follow-up management of their ongoing depression/anxiety symptoms The patient's symptoms started after [place] she has been extremely anxious and panickyThe [...] starting her on seroquel MARQUIS GARCIA [address] [place], [address], [facility] 08/21/2023 16:42:13 4 text/html c/o anxiety/mental health crisis The patient is participating in this appointment via telemedicine communication with a phone call/video calling service ([email or web address])The patient consents to use of these platforms [...] break through flare ups MARQUIS GARCIA [address] [place], [address], [facility] 08/28/2023 14:35:26 4 text/html hospital d/c the patient reports MARQUIS GARCIA [address] [place], [address], [facility] 01/11/2024 15:42:40 4 text/html here for rechk and is in need of medical clearancehas been getting ECT therapy and requires clearance to go further Nitesh Rosenberg DO [address] [place], [address], [facility] 05/12/2024 15:42:16 5 text/html f/u review for clearance for ECT treatment c/c: the patient is here today to verify clearance for continued ECT the patient reports that she is doing finestable, no major changes in health history no new allergies no new family hx no recent falls, no recent fractures, no recent surgeries, no recent procedures recent lab work completed with psychiatrist, levels were all wnl no fever, chills, night sweats, chest pain, sob, nose bleeds, ear pain, sore throat, headaches, vision changesno hearing changes, no vision changes up to date on dentist wears seat belt, feels safe at home, can bath herself, can dress herself, can take her medications as prescribed, eating well sleeping okay, working with psychiatrist medications updated in the chart, all up to date with what she is currently taking MARQUIS GARCIA [address] [place] [address], [address], [facility] 09/30/2024 13:52:55 OBGyn Episode No OBEpisode recorded.
--- OUTSIDE RECORDS SUMMARY | 2024-10-23 18:31 | XMS_ITS | Data Portability ---
Author Organization [facility], , [facility] Address [address] [place] [address] Assessment No assessment recorded. Plan of Treatment Reminders Order Date Submit Date Provider Last Modified By Organization Details Last Modified Time Details Appointments None recorded. Lab rapid strep A [address] [facility], [address] [place], [address], 3 03:37:43 Referral None recorded. Procedures None recorded. Surgeries None recorded. Imaging None recorded. Medication Orders paroxetine 20 mg tablet 2008 009 [facility] #[id number], [address] [place], [place], [id number], 3 03:03:56 penicillin V potassium 500 mg tablet 2008 009 [facility] #[id number], [address] [place], [place], [phone], 3 03:03:56 Patient TargetsNo targets recorded. Patient Instructions Encounter Date Encounter Id Patient Instructions Last Modified By Organization Details Last Modified Time 09/16/2008 [id number].we discussed the likelihood of relapse with antidepressants. Given that she's been on and off for them about 3 times and has relapsed about 3 x 2 of which were depression, the likelihood of relapse rate is fairly high and since she is getting away with using it every two to 3 days I think she should continue to do that. [email or web address] [id number] Not available 03/13/2011 02:51:43 Reason for Referral None Reported. Results Created Date Observation Date Name Description Value Unit Range Abnormal Flag Note LastModifiedBy Organization Detail LastModifiedTime 09/16/1909/16/2008 rapid strep A Result positi ve Not Available [facility] [address] [facility], [place], [address], 09/16/2008 11:46:15 Result Notes None recorded. Problems Name Problem SNOMED Code Status Onset Date Resolution Date Notes Provider Name and Address Organization Details Recorded Time Acute pharyngiti s 930761430 Completed 07/02/2013 Not Available Counts include 234 beds at the [facility] 3 02:01:17 Anxiety state 346135311 Active 2006 Not Available Counts include 234 beds at the [facility] 3 03:14:33 Problem Notes None recorded. Procedures Surgical History Date Name Laterality Status Provider Name and Address Organization Details Recorded Time Tonsillectomy completed Not Available [facility] 06/29/2011 06:05:52 Imaging Results None recorded. Procedure Notes None recorded. Medical Equipment None Reported. Allergies No known drug allergies Medications Name Sig Start Date Stop Date Status Note LastModified by Organization Details LastModified Time penicilli n V potassium 500 mg tablet Take 1 tablet every 12 hours by oral route for 10 days. 09/26 completed called to pharmacy - ms 09/16 Not Available Not Available Not Available paroxetin e 20 mg tablet Take 1 tablet every day by oral route. 2008 active Not Available Not Available Not Avai lable Vitals Date Recorded Body height Body weight Body mass index (BMI) Body temperature Heart rate Systolic blood pressure Diastolic blood pressure Provider Name and Address Organization Details Last Updated DateTime 9 168.91 cm 26481.8 6151 g 19.6 kg/m2 101.2 [degF] 68 /min 100 mm[Hg] 66 mm[Hg] Ronda Klein CMA(AAMA) [facility] 9 11:33:53 Social History Question Answer Notes [...] SNOMED-CT Code Diagnosis ICD10 Code Diagnosis Note [id number] [facility], OFFICE [address] [place] [address] 01/01/2007 13:23:55 01/01/2007 16:19:29 [id number] [facility], OFFICE [address] [place] [address] 03/20/2007 12:58:19 03/20/2007 15:25:12 [id number] [facility], OFFICE [address] [place] [address] 09/16/2008 10:23:02 09/17/2008 16:07:15 Health Concerns Section Related Observation LastModified by Organization Detai ls LastModified Time None Recorded Concern Status LastModified by Organization Details LastModified Time None Recorded Advance Directives Directive None Recorded Payers Encounter Date Sequence Insurance Name Policy Number Policy Martinez Covered Member ID Martinez Member ID Guarantor Name 01/01/2007 1 [place] [id number] Vicki Contreras [id number] Vicki Contreras 03/20/2007 1 [place] [id number] Vicki Contreras [id number] Vicki Contreras 09/16/2008 1 [place] [id number] Vicki Contreras [id number] Vicki Contreras OBGyn Episode No OBEpisode recorded.
--- OUTSIDE RECORDS SUMMARY | 2024-10-23 18:31 | XMS_ITS | Continuity of Care Document ---
Author Organization [facility], [facility], [facility] Address [address] [address] [place] [address] Assessment No assessment recorded. Plan of Treatment [...] and Address Organization Details Recorded Time Anxiety 20301384 Active 2017 Not Available [employer] 1 15:48:18 Colorectal cancer detected by DNA-based stool screening 021941911 Active 2021 MARQUIS GARCIA [address] [place] [address], [phone], [facility] 2 09:50:42 Influenza- like symptoms 665112756 Active 2022 MARQUIS GARCIA [address] [place] [address], [phone], [facility] 3 10:43:43 Menopause Active 2022 MARQUIS GARCIA [address] [place] [address], [phone], [facility] 3 09:50:48 Panic attack 862492921 Active 2022 MARQUIS GARCIA [address] [place], [address], [facility] 3 10:57:41 Restlessne ss and agitation 393595405 Active 2023 MARQUIS GARCIA [address] [place], [address], [facility] 4 16:21:19 Acute urinary tract infection 774822282 Active 2023 MARQUIS GARCIA [address] [place], [address], [facility] 4 12:25:28 Bipolar disorder 63588501 Active 2023 MARQUIS GARCIA [address] [place], [address], [facility] 4 15:34:50 Problem Notes None recorded. Procedures Surgical History Date Name Laterality Status Provider Name and Address Organization Details Recorded Time 04/22/20 18 Most Recent Mammogram completed [facility] 06/11/2019 08:15:51 09/06/19 11 Date of Last Pap Smear completed [facility] 06/11/2019 08:24:48 Remove tonsils and adenoids completed November LLOYD Orellana [address] [place], [address], [facility] 06/11/2019 15:57:52 Imaging Results None recorded. Procedure [...] Updated DateTime 5 170.18 cm 18.2 kg/m2 66016.4 3 g 93 /min 96 % 96 % 112 mm[Hg] 68 mm[Hg] [facility] 5 13:30:56 Social History Question Answer Notes LastModified by Organizat ion Details LastModified Time Tobacco Smoking Status Never Smoker Not Available [employer] 06/15/2020 03:36:24 Do You Or Have You Ever Used E-cigarettes Or Vape? Never Used Electronic Cigarettes [id number] Information not available 06/15/2020 What Was The Date Of Your Most Recent Tobacco Screening? 09/30/2024 [email or web address] Information not available 09/30/2024 Do You Or Have You Ever Used Smokeless Tobacco? Never Used Smokeless Tobacco [id number] Information not available 06/15/2020 How Much Tobacco Do You Smoke? No [id number] Information not available 06/15/2020 How Many Years Have You Smoked Tobacco? 0 [id number] Information not available 06/15/2020 Do You Or Have You Ever Used Any Other Forms Of Tobacco Or Nicotine? No [email or web address] Information not available 05/12/2024 Sex: Unknown Functional [...] mcg/0.3 mL dose 1 completed MARQUIS GARCIA [address] [place] [address], [phone], [facility] 06/26/2021 18:44:50 Influenza, split virus, quadrivalent, preservative 8 [email or web address]2018 10:05:48 influenza, unspecified formulation 4 completed MARQUIS GARCIA [address] [place] [address], [address], [facility] 09/30/2024 13:41:37 Influenza, split virus, quadrivalent, preservative 9 completed LLOYD Almaraz [address] [place] [address], [address], [facility] 06/11/2019 15:51:30 Tdap 7 completed Cadence LLOYD Orellana [address] [place] [address], [address], [facility] 04/09/2018 11:19:19 Past Encounters Encounter ID Performer Location Encounter Start Date Encounter Closed Date Diagnosis/Indication Diagnosis SNOMED-CT Code Diagnosis ICD10 Code Diagnosis Note [id number] MARQUIS GARCIA [facility] [address],[place] [address] 09/30/2024 13:19:50 09/30/2024 13:54:17 Anxiety 15846525 F41.1 follows with psych Bipolar disorder 6363336 4 F31.10 follows with psych Pre-surger y evaluation 829038159 Z01.818 patient cleared for ECT treatments Health Concerns Section Related Observation LastModified by Organization Detai ls LastModified Time None Recorded Concern Status LastModified by Organization Details LastModified Time None Recorded Payers Encounter Date Sequence Insurance Name Policy Number Policy Martinez Covered Member ID Martinez Member ID Guarantor Name 09/30/2024 1 [employer]: [employer] ([place]) [id number] Vicki Hargrove Contreras [id number] Vicki Contreras Notes Date Note Type Note Provider Name a nd Address Organization Details Recorded Time 09/30/2024 text/html f/u review for clearance for ECT [...] what she is currently taking MARQUIS GARCIA [address] [place] [address], [phone], [facility] 09/30/2024 13:52:55 OBGyn Episode No OBEpisode recorded.
== END 2024-10-23 15:24 | disposition home or self-care (01) ==
LOC: HO.HOP 14:44
PROVIDERS: PCP Internal Medicine; Visit Provider Psychiatry & Neurology Psychiatry
DX: F06.30 Mood disorder due to known physiological condition, unspecified (principal)
CPT/HCPCS: 99214

== ENCOUNTER → 2024-10-23 14:44 | Outpatient (BNVA) | payer BC, SELFPAY | PROVIDERS: PCP Internal Medicine; Visit Provider Psychiatry & Neurology Psychiatry ==

== ENCOUNTER 2025-04-01 05:55 | Day surgery (SDC) | payer BC, SELFPAY ==
--- OUTSIDE RECORDS SUMMARY | 2025-03-31 16:22 | XMS_ITS | Encounter Summary ---
Author Organization [facility] Address [address] [place] [address] Phone Care Team Providers Care Director Of Food And Nutrition Name Role Phone Leydi Carl MD Unavailable [phone] Nitesh Rosenberg DO Primary Care Provider [phone] Nitesh Rosenberg DO Unavailable Encounter Details Date Type Department Care Team (Late st Contact Info) Description 01/23/2022 Procedure Pass [facility], [address] [address] Social History Tobacco Use Types Packs/Day Years Used Date Smoking Tobacco: Never Smokeless Tobacco: Never Alcohol Use Standard Drinks/Week Comments Yes 2 (1 standard drink = 0.6 oz pur e alcohol) Comments No Sex and Gender Information Value Date Recorded Sex Assigned at Female 09/09/2017 1:36 PM EST Legal Sex Female 9:35 PM EDT Gender Identity Female 09/09/2017 1:36 PM EST Sexual Orientation Straight 09/09/2017 1: 36 PM EST 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 Not on file Not on fi le documented as of this encounter Plan of Treatment Upcoming Encounters Date Type Department Care Team (Late st Contact Info) Description 05/26/2025 4:10 PM EDT Office Visit [facility] [address] [place] [address] [place] [address] Jennifer Posada MD [address], [address] [place], [place] [id number] [email or web address] documented as of this encounter Visit Diagnoses Not on filedocumented in this encounter Additional Health Concerns Infection Onset Date Last Indicated Resolved Time Influenza A 08/05/2023 08/05/2023 08/12/2023 1:22 AM EST CoV-Risk 08/05/2023 08/05/2023 08/16/2023 1:23 AM EST documented as of this encounter Care Teams Director Of Food And Nutrition Relationship Specialty Start Date End Date Nitesh Rosenberg DO [address] [place] [address] [email or web address] PCP - General 08/16/17 Leydi Carl MD [address] [place] [address] Historical LMR Provider 06/03/17 Nitesh Rosenberg DO [address] [place] [address] [email or web address] Insurance Assigned Provider 11/17/23 documented as of this encounter Additional Source Comments The information contained in this document represents components of the legal health record. It is not the complete legal health record.[facility]
[2025-04-01] VITALS (8 sets, daily range): BP systolic 101–128; BP diastolic 66–78; PULSE 78–95; RESP 16; TEMP 36.3–36.8; O2SAT 96–98; BMI 19.0
--- NOTE | 2025-04-01 06:52 | HO.ANESPROP2 ---
[facility] Active Problems Active Problems: All Active Problems 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 (Acute) Bipolar 1 disorder, depressed, severe (Acute) Cognitive and behavioral changes (Acute) Other anxiety states (Acute) Bipolar affective, mixed, severe (Acute) Akathisia (Acute) Panic attacks (Acute) Anxiety (Acute) Past Medical History Medical History Menopause Routine medical exam Bipolar affective, mixed, severe Akathisia Panic attacks Anxiety No known health problems Family History Family history of problems with anesthesia: No Surgical History History of Problems with Anesthesia: No Social History Social History Household Members: Spouse Household Members Other:: Housing: House Are you a primary patient care specialist to a significant other at home: No Do you presently have visiting nurse or other home services: No Alcohol intake: current Alcohol intake frequency: does not drink Alcohol type: wine Patient Tobacco Use Status: Never used Tobacco e-Cigarette/Vaping Use: Never Used Second Hand Smoke Exposure: No Advance Directives: No Advance Directives Information Provided: Yes service: No Sexual orientation: Straight/Heterosexual Meds Allergies Allergy/AdvReac Type Severity Reaction Status Date / Time No Known Allergies Allergy Verified 03/11/24 14:49 Active Medications: Current Medications Lactated Ringer's (Lr) 1,000 mls @ 50 mls/hr IVCONT .Q20H [facility] Home Medications ?Medication ?Instructions ?Recorded ?Confirmed ?Last Taken ?Type estradiol 0.0375 mg/24 hr 1 patch topical 2XW 03/11/24 03/11/24 03/11/24 History semiweekly transdermal patch progesterone micronized 100 mg 100 mg PO DAILY 03/11/24 03/11/24 03/11/24 History capsule gabapentin 300 mg capsule 300 mg PO 3XD 10/23/24 10/23/24 Unknown History olanzapine 2.5 mg tablet 2.5 mg PO BEDTIME 10/23/24 10/23/24 Unknown History Exam Height,Weight and Vital Signs: Height 5 ft 6 in Weight 53.497 kg Last Vital Signs Temp 98.3 F 04/01/25 06:29 Pulse 80 04/01/25 06:29 Resp 16 04/01/25 06:29 BP 101/72 04/01/25 06:29 Pulse Ox 98 04/01/25 06:29 O2 Del Method Room Air 04/01/25 06:29 Airway Mallampati Class: II TM Dist: >3cm Neck ROM: Full Heart: rrr Lungs: cta Assessment and Plan Assessment Anesthesia Assessment: Anesthesia Plan Discussed and Chart Reviewed Final Anesthetic Review Family History of Problems with Anesthesia: No History of Problems with Anesthesia: No NPO: Yes ASA Class: III Final Preanesthetic Review: No Changes in Pt Med Stat, Meds/Allgs Chart Reviewed and Consent Obtained/Reviewed Patient Risk: Intermediate Procedure Risk: Intermediate Anesthetic Plan Anesthetic Plan: GA Disposition: Standard PACU
--- NOTE | 2025-04-01 07:31 | MHC.SHP ---
Pre-Procedural Eval Section A - 24 Hr Update-Section A only Date of Service: 04/01/25 Changes since office visit: No Cold of Flu in the past 2 weeks, No New Medical Problems, No Changes in Medication and No Patient answered all questions Section B - Complete if H&P > 30 days Chief Complaint: DEPRESSION Details of Present Illness: improved now on gabapentin dec mirtazapine Relevant Social History: None Medical History: No relevant PMH Allergies: Allergies Allergy/AdvReac Type Severity Reaction Status Date / Time No Known Allergies Allergy Verified 03/11/24 14:49 Review of Systems Sugical H&P ROS: Negative: Cardiovascular, Respiratory and Neurological Exam Surgical H&P Exam: Normal: Heart (RRR), Normal: Lungs (clear) and Normal: Neurological (alert no confusion) Exam Comment: alert no c/o side effects Plan Diagnosis/Plan: Unchanged I have reviewed the history and physical and performed a pertinent physical examination on my patient. No changes have occurred unless specified. Time Spent With Patient Time: Total time managing care of this patient today ____ minutes.
--- NOTE | 2025-04-01 07:37 | HO.ECTPROC ---
ECT Procedure Note Diagnosis/Treatment Date of Service: 04/02/25 Diagnosis: Major Depressive Disorder Previous ECT Date: 09/24/24 Current Treatment Number: 1 Treatment: Series Interval Clinical Notes: Patient is referred by Dr. Goldman to reestablish treatment with ECT for what appears to be agitated depression. Dr. Goldman's evaluation reviewed he upload for full information. Patient was seeing Dr. Mat Sanders need to clarify who primary psychiatrist is at this point. Patient with severe anxiety rumination and dysphoria. Did respond quite well in the past with good effect from ECT and did have maintenance treatment. This ended in September. Patient treated today right unilateral did have significant postop anxiety. Patient was treated with 14 mg etomidate 80 mg succinylcholine given Versed 2 mg post had significant restlessness anxiety dysphoria and then given olanzapine 2.5 mg post prior to discharge. Will coordinate with Dr. Goldman and call to patient's Time: Total time managing care of this patient today _45__ minutes. ECT Settings Device: THYMATRON DGx Electrode Placement: Right Unilateral Program/Pulse Width: 0.50 Energy Percent: 100 Seizure Duration By EEG (in seconds): 69 Medications Administration General Anesthetic: Etomidate (14) Muscle Relaxant: Succinylcholine (80) Ancillary Medications Miscillaneous Medications: Midazolam (2 mg post minimally effective ) Airway Management Airway Management: Bag Mask Ventilation Treatment Recommendations Program/Pulse Width: 0.25 Energy Percent: 100 Notes: lower program 0.25 olanzapine po given at home with sip water prior to procedure had severe anxiety post versed 2 mg can give 1 mg ativan po prior to discharge
--- NOTE | 2025-04-01 07:48 | ECG_ITS ---
Test Reason : preop Blood Pressure : */* mmHG Vent. Rate : 69 BPM Atrial Rate : 69 BPM P-R Int : 150 ms QRS Dur : 90 ms QT Int : 392 ms P-R-T Axes : 110 107 124 degrees QTcB Int : 420 ms Suspect limb lead reversal, interpretation assumes no reversal Normal sinus rhythm Rightward axis Nonspecific ST abnormality Abnormal ECG When compared with ECG of 24-Sep-2024 06:39, Incomplete right bundle branch block is no longer Present T wave inversion now evident in Lateral leads Referred By: Prasanna Cancino Electronically Signed By:
[2025-04-01 08:12] LABS: MANUAL DIFF FLAG NO
[2025-04-01 08:15] LABS: Hematocrit 41.1 % (37.0-47.0); Hemoglobin 14.1 g/dl (12.0-16.0); Imm Gran Abs Auto 0.01 X10*3/uL (0.00-0.03); Imm Gran Pct Auto 0.2 % (0.0-0.4); Lymphocytes Absolute Auto 1.1 X10*3/uL (1.2-4.9); Mean Corpuscular HGB Conc 34.3 g/dl (31.0-35.0); Mean Corpuscular Hemoglobin 33.1 pg (27.0-33.0); Mean Corpuscular Volume 96.5 fL (80.0-98.0); NRBC Abs Auto 0.000 X10*3/uL (0.0-0.012); NRBC Pct Auto 0.0 /100WBC (0.0-0.2); Platelet Count 223 X10*3/uL (160-400); Red Blood Count 4.26 X10*6/uL (4.20-5.50); White Blood Count 4.0 X10*3/uL (4.8-10.8)
[2025-04-01 08:35] LABS: Alanine Aminotransferase 16 U/L (0-31); Albumin Level 4.8 g/dL (3.5-5.0); Alkaline Phosphatase 49 U/L (39-117); Anion Gap 14 (12-20); Aspartate Amino Transferase 21 U/L (5-31); Blood Urea Nitrogen 13 mg/dL (9-16); Calcium 9.3 mg/dL (8.4-10.2); Carbon Dioxide 26 mmol/L (22-29); Chloride 106 mmol/L (96-108); Creatinine Clr Calc Pharmacy 72.3; Estimated Glomerular Filt Rate > 60; Potassium 4.0 mmol/L (3.3-5.1); Sodium 142 mmol/L (135-145); Total Protein 6.9 g/dL (6.5-8.0)
[2025-04-01 09:05] LABS: Folate 13.8 ng/mL (> or = 4.0); Vitamin B12 500 pg/mL (200-900)
[2025-04-04 12:43] LABS: Anti Nuclear Antibody Screen POSITIVE (NEGATIVE); Anti Nuclear Antibody Titer 1:40 titer
== END 2025-04-01 09:30 | disposition home or self-care (01) ==
PROVIDERS: PCP Internal Medicine; Visit Provider Psychiatry & Neurology Psychiatry
PROC: (CPT 90870; principal; 2025-04-01 08:00)
DX: F31.63 Bipolar disorder, current episode mixed, severe, without psychotic features (principal); F39 Unspecified mood [affective] disorder; F41.0 Panic disorder [episodic paroxysmal anxiety]; F41.8 Other specified anxiety disorders; R45.1 Restlessness and agitation; Z79.899 Other long term (current) drug therapy
CPT/HCPCS: 36415; 80053; 82607; 82746; 84443; 85025; 86038; 86039; 86431; 90870; 93005; J0330; J2250; J2704

== ENCOUNTER → 2025-04-01 05:55 | Outpatient (BNV) | payer BC, SELFPAY | PROVIDERS: PCP Internal Medicine; Visit Provider Psychiatry & Neurology Psychiatry | DX: F33.2 Major depressive disorder, recurrent severe without psychotic features (principal) | CPT/HCPCS: 90870 ==

== ENCOUNTER 2025-04-03 05:56 | Day surgery (SDC) | payer BC, SELFPAY ==
--- OUTSIDE RECORDS SUMMARY | 2025-04-02 12:28 | XMS_ITS | Encounter Summary ---
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 Not on file Not on fi le documented as of this encounter Plan of Treatment Upcoming Encounters Date Type Department Care Team (Late st Contact Info) Description 05/26/2025 4:10 PM EDT Office Visit [facility] [address] [place] [address] [place] [address] Jennifer Posada MD [address], [address] [place], [place] [id number] [email or web address] documented as of this encounter Visit Diagnoses Not on filedocumented in this encounter Additional Health Concerns Infection Onset Date Last Indicated Resolved Time Influenza A 08/05/2023 08/05/2023 08/12/2023 1:22 AM EST CoV-Risk 08/05/2023 08/05/2023 08/16/2023 1:23 AM EST documented as of this encounter Care Teams Control Clerk Repairs Relationship Specialty Start Date End Date Nitesh Rosenberg DO [address] [place] [address] [email or web address] PCP - General 08/16/17 Leydi Carl MD [address] [place] [address] Historical LMR Provider 06/03/17 Nitesh Rosenberg DO [address] [place] [address] [email or web address] Insurance Assigned Provider 11/17/23 documented as of this encounter Additional Source Comments The information contained in this document represents components of the legal health record. It is not the complete legal health record.[facility]
[2025-04-03] VITALS (7 sets, daily range): BP systolic 100–115; BP diastolic 65–78; PULSE 59–76; RESP 13–17; TEMP 36.3–36.6; O2SAT 100; BMI 18.9
--- NOTE | 2025-04-03 06:42 | P.CONAN_ITS ---
[facility] Active Problems Active Problems: All Active Problems 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 (Acute) Bipolar 1 disorder, depressed, severe (Acute) Cognitive and behavioral changes (Acute) Other anxiety states (Acute) Bipolar affective, mixed, severe (Acute) Akathisia (Acute) Panic attacks (Acute) Anxiety (Acute) Past Medical History Medical History Menopause Routine medical exam Bipolar affective, mixed, severe Akathisia Panic attacks Anxiety No known health problems Family History Family history of problems with anesthesia: No Surgical History History of Problems with Anesthesia: No Social History Social History Household Members: Spouse Household Members Other:: Housing: House Are you a primary clinical care coordinator to a significant other at home: No Do you presently have visiting nurse or other home services: No Alcohol intake: current Alcohol intake frequency: does not drink Alcohol type: wine Patient Tobacco Use Status: Never used Tobacco e-Cigarette/Vaping Use: Never Used Second Hand Smoke Exposure: No Use of substances other than those prescribed or required for medical reasons: No Have you been hit, kicked, punched, or otherwise hurt by someone within the past year? If so, by whom?: No Are you DNR?: No Advance Directives: No Advance Directives Information Provided: Yes Patient : No : No Poor oral hygiene: No service: No Sexual orientation: Straight/Heterosexual Meds Allergies Allergy/AdvReac Type Severity Reaction Status Date / Time No Known Allergies Allergy Verified 03/11/24 14:49 Home Medications ?Medication ?Instructions ?Recorded ?Confirmed ?Last Taken ?Type estradiol 0.0375 mg/24 hr 1 patch topical 2XW 03/11/24 03/11/24 03/11/24 History semiweekly transdermal patch progesterone micronized 100 mg 100 mg PO DAILY 4 03/11/24 03/11/24 History capsule gabapentin 300 mg capsule 300 mg PO 3XD 10/23/2410/23 Unknown History olanzapine 2.5 mg tablet 2.5 mg PO BEDTIME 10/23/24 0 10/23/24 Unknown History Exam Height,Weight and Vital Signs: Height 5 ft 6 in Weight 53.07 kg Last Vital Signs Temp 97.4 F 04/03/25 06:23 Pulse 64 04/03/25 06:23 Resp 14 04/03/25 06:23 BP 100/70 04/03/25 06:23 Pulse Ox 100 04/03/25 06:23 O2 Del Method Room Air 04/03/25 06:23 Airway Mallampati Class: II TM Dist: >3cm Neck ROM: Full Heart: rrr Lungs: cta Assessment and Plan Assessment Anesthesia Assessment: Anesthesia Plan Discussed and Chart Reviewed Final Anesthetic Review Family History of Problems with Anesthesia: No History of Problems with Anesthesia: No NPO: Yes ASA Class: III Final Preanesthetic Review: No Changes in Pt Med Stat, Meds/Allgs Chart Reviewed and Consent Obtained/Reviewed Patient Risk: Intermediate Procedure Risk: Intermediate Anesthetic Plan Anesthetic Plan: GA Disposition: Standard PACU
--- NOTE | 2025-04-03 06:48 | MHC.SHP ---
Pre-Procedural Eval Section A - 24 Hr Update-Section A only Date of Service: 04/03/25 Section B - Complete if H&P > 30 days Chief Complaint: DEPRESSION Allergies: Allergies Allergy/AdvReac Type Severity Reaction Status Date / Time No Known Allergies Allergy Verified 03/11/24 14:49 Review of Systems Sugical H&P ROS: Negative: Constitution Exam Surgical H&P Exam: Normal: HEENT, Normal: Extremities and Normal: Neurological Plan Diagnosis/Plan: Change (decrease to 0.25 program from 0.5 program) I have reviewed the history and physical and performed a pertinent physical examination on my patient. No changes have occurred unless specified. Time Spent With Patient Time: Total time managing care of this patient today _35___ minutes.
[2025-04-03] MEDS: Lactated Ringers 1,000 ML 50 ML IVCONT (06:58)
--- NOTE | 2025-04-03 07:30 | HO.ECTPROC ---
ECT Procedure Note Diagnosis/Treatment Date of Service: 04/03/25 Diagnosis: Major Depressive Disorder Previous ECT Date: 04/01/25 Current Treatment Number: 2 Treatment: Series Interval Clinical Notes: felt back to her usual self after her first treatment on 04/01. stable medically, vastly improved psychiatrically. Time: Total time managing care of this patient today __35__ minutes. ECT Settings Device: THYMATRON DGx Electrode Placement: Right Unilateral Program/Pulse Width: 0.25 Energy Percent: 100 Seizure Duration By EEG (in seconds): 55 Medications Administration General Anesthetic: Etomidate (14) Muscle Relaxant: Succinylcholine (80) Ancillary Medications Miscillaneous Medications: Midazolam (2) Airway Management Airway Management: Bag Mask Ventilation Treatment Recommendations No Changes Recommended: No change Notes: RTC friday 04/06 Pt Tolerated Procedure w/o Issue: Yes
== END 2025-04-03 08:32 | disposition home or self-care (01) ==
PROVIDERS: PCP Internal Medicine; Visit Provider Psychiatry & Neurology Psychiatry
PROC: (CPT 90870; principal; 2025-04-03 07:30)
DX: F33.2 Major depressive disorder, recurrent severe without psychotic features (principal); F41.9 Anxiety disorder, unspecified; F41.0 Panic disorder [episodic paroxysmal anxiety]; R45.1 Restlessness and agitation; Z79.899 Other long term (current) drug therapy
CPT/HCPCS: 90870; J0330; J2250

== ENCOUNTER → 2025-04-03 05:56 | Outpatient (BNV) | payer BC, SELFPAY | PROVIDERS: PCP Internal Medicine; Visit Provider Psychiatry & Neurology Psychiatry | DX: F33.2 Major depressive disorder, recurrent severe without psychotic features (principal) | CPT/HCPCS: 90870 ==

== ENCOUNTER 2025-04-06 05:56 | Day surgery (SDC) | payer BC, SELFPAY ==
[2025-04-06] VITALS (10 sets, daily range): BP systolic 96–119; BP diastolic 61–81; PULSE 60–92; RESP 14–18; TEMP 36.6–37; O2SAT 100; BMI 18.9
--- NOTE | 2025-04-06 06:59 | HO.ANESPROP2 ---
[facility] Active Problems Active Problems: All Active Problems 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 (Acute) Bipolar 1 disorder, depressed, severe (Acute) Cognitive and behavioral changes (Acute) Other anxiety states (Acute) Bipolar affective, mixed, severe (Acute) Akathisia (Acute) Panic attacks (Acute) Anxiety (Acute) Past Medical History Medical History Menopause Routine medical exam Bipolar affective, mixed, severe Akathisia Panic attacks Anxiety No known health problems Family History Family history of problems with anesthesia: No Surgical History History of Problems with Anesthesia: No Social History Social History Household Members: Spouse Household Members Other:: Housing: House Are you a primary mall plant caretaker to a significant other at home: No Do you presently have visiting nurse or other home services: No Alcohol intake: current Alcohol intake frequency: does not drink Alcohol type: wine Patient Tobacco Use Status: Never used Tobacco e-Cigarette/Vaping Use: Never Used Second Hand Smoke Exposure: No Advance Directives: No Advance Directives Information Provided: Yes service: No Sexual orientation: Straight/Heterosexual Meds Allergies Allergy/AdvReac Type Severity Reaction Status Date / Time No Known Allergies Allergy Verified 03/11/24 14:49 Active Medications: Current Medications Lactated Ringer's (Lr) 1,000 mls @ 50 mls/hr IVCONT .Q20H [facility] Home Medications ?Medication ?Instructions ?Recorded ?Confirmed ?Last Taken ?Type estradiol 0.0375 mg/24 hr 1 patch topical 2XW 03/11/24 03/11/24 03/11/24 History semiweekly transdermal patch progesterone micronized 100 mg 100 mg PO DAILY 03/11/24 03/11/24 03/11/24 History capsule gabapentin 300 mg capsule 300 mg PO 3XD 10/23/24 10/23/24 Unknown History olanzapine 2.5 mg tablet 2.5 mg PO BEDTIME 10/23/24 10/23/24 Unknown History Exam Height,Weight and Vital Signs: Height 5 ft 6 in Weight 53.07 kg Last Vital Signs Temp 98.3 F 04/06/25 06:27 Pulse 63 04/06/25 06:27 Resp 18 04/06/25 06:27 BP 103/61 04/06/25 06:27 Pulse Ox 100 04/06/25 06:27 O2 Del Method Room Air 04/06/25 06:27 Airway Mallampati Class: II TM Dist: >3cm Neck ROM: Full Heart: rrr Lungs: cta Assessment and Plan Assessment Anesthesia Assessment: Anesthesia Plan Discussed and Chart Reviewed Final Anesthetic Review Family History of Problems with Anesthesia: No History of Problems with Anesthesia: No NPO: Yes ASA Class: III Final Preanesthetic Review: No Changes in Pt Med Stat, Meds/Allgs Chart Reviewed and Consent Obtained/Reviewed Patient Risk: Intermediate Procedure Risk: Intermediate Anesthetic Plan Anesthetic Plan: GA Disposition: Standard PACU
--- NOTE | 2025-04-06 07:11 | MHC.SHP ---
Pre-Procedural Eval Section A - 24 Hr Update-Section A only Date of Service: 04/06/25 Section B - Complete if H&P > 30 days Chief Complaint: depression Details of Present Illness: pt feeling betterafter first 2 tx Allergies: Allergies Allergy/AdvReac Type Severity Reaction Status Date / Time No Known Allergies Allergy Verified 03/11/24 14:49 Review of Systems Sugical H&P ROS: Negative: Constitution, Cardiovascular and Respiratory and Yes, Specify: Psychiatric (some restlessness) Exam Surgical H&P Exam: Normal: HEENT, Normal: Extremities and Normal: Neurological Plan Diagnosis/Plan: Change (decrease to 0.25 program from 0.5 program) I have reviewed the history and physical and performed a pertinent physical examination on my patient. No changes have occurred unless specified. Time Spent With Patient Time: Total time managing care of this patient today ____ minutes.
--- NOTE | 2025-04-06 07:15 | HO.ECTPROC ---
ECT Procedure Note Diagnosis/Treatment Date of Service: 04/06/25 Diagnosis: Major Depressive Disorder Previous ECT Date: 04/01/25 Current Treatment Number: 3 Treatment: Series Interval Clinical Notes: felt back to her usual self after her first treatment on 04/01. stable medically, vastly improved psychiatrically.did not take olanzapine prior to tx Time: Total time managing care of this patient today ____ minutes. ECT Settings Device: THYMATRON DGx Electrode Placement: Right Unilateral Program/Pulse Width: 0.25 Energy Percent: 100 Seizure Duration By EEG (in seconds): 55 Medications Administration General Anesthetic: Etomidate (14) Muscle Relaxant: Succinylcholine (80) Ancillary Medications Miscillaneous Medications: Midazolam (2) Airway Management Airway Management: Bag Mask Ventilation Treatment Recommendations No Changes Recommended: No change Notes: RTC sunday04/10/25 Pt Tolerated Procedure w/o Issue: Yes
== END 2025-04-06 09:21 | disposition home or self-care (01) ==
PROVIDERS: PCP Internal Medicine; Visit Provider Psychiatry & Neurology Psychiatry
PROC: (CPT 90870; principal; 2025-04-06 07:30)
DX: F33.2 Major depressive disorder, recurrent severe without psychotic features (principal); F41.9 Anxiety disorder, unspecified; F41.0 Panic disorder [episodic paroxysmal anxiety]; Z79.899 Other long term (current) drug therapy
CPT/HCPCS: 90870; J0330; J2250

== ENCOUNTER → 2025-04-06 05:56 | Outpatient (BNV) | payer BC, SELFPAY | PROVIDERS: PCP Internal Medicine; Visit Provider Psychiatry & Neurology Psychiatry | DX: F33.2 Major depressive disorder, recurrent severe without psychotic features (principal) | CPT/HCPCS: 90870 ==

== ENCOUNTER 2025-04-10 05:59 | Day surgery (SDC) | payer BC, SELFPAY ==
--- OUTSIDE RECORDS SUMMARY | 2025-04-09 13:43 | XMS_ITS | Encounter Summary ---
Author Organization [facility] Address [address] [place] [address] Phone Care Team Providers Care Security Specialist Name Role Phone Leydi Carl MD Unavailable [phone] Nitesh Rosenberg DO Primary Care Provider [phone] Nitesh Rosenberg DO Unavailable Encounter Details Date Type Department Care Team (Late st Contact Info) Description 01/31/2024 Procedure Pass [facility] [address] [place] [address] Social History Tobacco Use Types Packs/Day Years Used Date Smoking Tobacco: Never Smokeless Tobacco: Never Alcohol Use Standard Drinks/Week Comments Not Currently 2 (1 standard drink = 0.6 oz pur e alcohol) Education Answer Date Recorded Are you interested in more education? Not on tali e 12/08/2022 Are you concerned about learning? Not on file 12/08/2022 No 12/08/2022 No 12/08/2022 Digital Access Answer Date Recorded No 01/08/2023 No 01/08/2023 Reliable internet access at home? Not on file 01/08/2023 Device with a working camera? 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 Not on file Not on fi le documented as of this encounter Plan of Treatment Upcoming Encounters Date Type Department Care Team (Late st Contact Info) Description 05/26/2025 4:10 PM EDT Office Visit [facility] [address] [place] [address] Jennifer Posada MD [address] [address] [email or web address] documented as of this encounter Visit Diagnoses Not on filedocumented in this encounter Care Teams Security Specialist Relationship Specialty Start Date End Date Nitesh Rosenberg DO [address] [place] [address] [email or web address] PCP - General 08/16/17 Leydi Carl MD [address] [place] [address] Historical LMR Provider 06/03/17 Nitesh Rosenberg DO [address] [place] [address] [place] [address] [email or web address] Insurance Assigned Provider 11/17/23 documented as of this encounter Additional Source Comments The information contained in this document represents components of the legal health record. It is not the complete legal health record.[facility]
--- OUTSIDE RECORDS SUMMARY | 2025-04-09 13:43 | XMS_ITS | Encounter Summary ---
Author Organization [facility] Address [address] [place] [address] Phone Care Team Providers Care Gambling Cashier Name Role Phone Chet Nitesh Herman DO Unavailable Tati Lovell MANAGER IN TRAINING Unavailable Imani Schulz CNM Unavailable Leydi Carl MD Unavailable [phone] Brijesh Gonzalez MD Unavailable [phone] Liz Chamberlain MANAGER IN TRAINING Unavailable Nitesh Rosenberg DO Primary Care Provider [phone] Nitesh Rosenberg DO Unavailable Encounter Details Date Type Department Care Team (Latest Contact Info) Description 04/09/2018 Transcribe Orders [facility] [address] [place] [address] Cadence Orellana PA-C 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 Not on file Not on fi le documented as of this encounter Plan of Treatment Upcoming Encounters Date Type Department Care Team (Late st Contact Info) Description 05/26/2025 4:10 PM EDT Office Visit [facility] [address] [place] [address] Jennifer Posada MD 22 [facility], [address] [place] [address] [email or web address] documented as of this encounter Results * Gliadin deamidated antibody, IgG/IgA (04/09/2018 11:53 AM EDT) Gliadin Ab, IGA <10.0 <20.0 (Negative) U [facility] DPT OF LAB MED AND PAT+ GLIADIN AB IGG <10.0 <20.0 (Negative) U [facility] DPT OF LAB MED AND PAT+ Blood 04/09/2018 11:5 3 AM EDT 04/09/2018 12:12 PM EDT November Reyna [facility] LAB BLOOD ORDERABLES Final R esult Performing Organization Address City/[facility]/ZIP Co de Phone Number [facility] DPT OF LAB MED AND PAT+ [address] [place] [address] * Tissue transglutaminase IgA (04/09/2018 11:53 AM EDT) TTG IGA ANTIBODY <1.2 <4.0 (Negative) U/mL [facility] DPT OF LAB MED AND PAT+ Blood 04/09/2018 11:5 3 AM EDT 04/09/2018 12:12 PM EDT November Reyna [facility] LAB BLOOD ORDERABLES Final R esult Performing Organization Address City/[facility]/ZIP Co de Phone Number [facility] DPT OF LAB MED AND PAT+ [address] [place] [address] documented in this encounter Visit Diagnoses Diagnosis Stomach ache- Primary Dyspepsia and other specified disorders of function of stomach documented in this encounter Additional Health Concerns Infection Onset Date Last Indicated Resolved Time Influenza A 08/05/2023 08/05/2023 08/12/2023 1:22 AM EST CoV-Risk 08/05/2023 08/05/2023 08/16/2023 1:23 AM EST documented as of this encounter Care Teams Gambling Cashier Relationship Specialty Start Date End Date Nitseh Rosenberg DO [address] [place] [address] PCP - General 08/16/17 Nitesh Rosenberg DO [address] [place] [address] Historical LMR Provider 06/03/17 08/20/21 Tati Lovell NP [address] [address] Historical LMR Provider 06/03/17 2 Imani Schulz CNM [address] [place] [address] Historical LMR Provider 06/03/17 2 Leydi Carl MD [address] [place] [address] Historical LMR Provider 06/03/17 Brijesh Gonzalez MD [address] [place] [address] Historical LMR Provider 06/03/17 2 Liz Chamberlain NP [address] [place] [address] Historical LMR Provider 06/03/17 2 Nitesh Rosenberg DO [address] [place] [address] [email or web address] Insurance Assigned Provider 11/17/23 documented as of this encounter Additional Source Comments The information contained in this document represents components of the legal health record. It is not the complete legal health record.[facility]
--- OUTSIDE RECORDS SUMMARY | 2025-04-09 13:43 | XMS_ITS | Clinical Summary ---
Author Organization [facility] Address [address] [place] [address] Phone Care Team Providers Care Splicing Technician Name Role Phone Leydi Carl MD Unavailable [phone] [place], Nitesh Herman DO Primary Care Provider [phone] Nitesh Rosenberg DO Unavailable Allergies No known active allergies Medications PARoxetine (PAXIL) 20 MG tablet Take 10 mg by mouth every morning. 1 Active multivitamins with iron-folic acid (CENTRUM COMPLETE) 18-400 mg-mcg Tab Active benztropine (COGENTIN) 0.5 MG tablet Take 0.5 mg by mouth 2 (two) times a day. 4 Active clonazePAM (KLONOPIN) 0.5 MG tablet Take 0.5 mg by mouth daily. 4 Active clonazePAM (KLONOPIN) 1 MG tablet Take 1 mg by mouth nightly at bedtime. 4 Active divalproex (DEPAKOTE) [address] tablet Take 750 mg by mouth nightly at bedtime. 4 Active risperiDONE (RISPERDAL) 1 MG tablet Take 1 mg by mouth 2 (two) times a day. 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 Patient instructed to come for eval If r breast mass previously diagnosed as cyst and stable per patient increases in size or becomes painful Encounters Date Type Department Care Team Description 02/19/2025 Telephone [facility] [address] [place] [address] Katie Ahmadi, GUADALUPE 02/19/2025 Telephone [facility] [address] [place] [address] Katie Ahmadi, GUADALUPE 02/18/2025 Refill [facility] [address] [place] [address] Jennifer Posada MD Medication Refill from Last 3 Months Immunizations Immunization Administration Dates Next Due COVID-19 (Pre-06/04) Pfizer Vaccine, mRNA, PF 06/25/2021,11/13/2020,10/21/2020 INFLUENZA, SPLIT VIRUS, TRIVALENT PF 05/22/2017, 05/23/2016,05/25/2015 Influenza Quadrivalent Preservative Free IM 04/13,05/27/2019,05/21/2018 Influenza Quadrivalent w/ Preservative IM 2018,05/16/2019 Tdap 05/22/2017,05/23/2016 Family History Medical History Relation Comments CV disease Father Hypertension Father Prostate cancer Father Cancer Maternal Grandmother Lung Cancer Cancer Mother Lung Cancer CV disease Paternal Grandfather Breast cancer Neg Hx Relation Status Comments Father Maternal Grandmother Mother Paternal Grandfather Social History Tobacco Use Types Packs/Day Years Used Date Smoking Tobacco: Never Smokeless Tobacco: Never Tobacco Cessation:Counseling Given: Not Answered Alcohol Use Standard Drinks/Week Comments Not Currently [...] 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 Not on file Not on fi le Last Filed Vital Signs Vital Sign Reading Time Taken Comments Blood Pressure 112/74 01/31/2024 10:44 AM EDT Pulse 89 08/05/2023 11:24 AM EST Temperature 37 C (98.6 F) 08/05/2023 11:24 AM EST Respiratory Rate 17 08/05/2023 11:24 AM EST Oxygen Saturation 100% 08/05/2023 11:24 AM EST Inhaled Oxygen Concentration - - Weight 48.5 kg (107 lb) 03/07/2024 9:57 AM EDT Height 167.6 cm (5' 6 ) 03/07/2024 9:57 AM EDT Body Mass Index 17.27 03/07/2024 9:57 AM EDT Plan of Treatment Upcoming Encounters Date Type Department Care Team (Late st Contact Info) Description 05/26/2025 4:10 PM EDT Office Visit [facility] [address] [place] [address] [place] [address] Jennifer Posada MD 22 [facility], [address] [place] [address] [email or web address] Health Maintenance Due Date Last Done Comments VALPROIC ACID (DEPAKENE) LEVEL 1970 DEPRESSION SCREENING 1982 HEPATITIS C SCREENING 1988 HIV ONE-TIME SCREENING (18-65 YEARS) 1988 COLOGUARD 2015 COLONOSCOPY 2015 COLORECTAL CANCER SCREENING 2015 FIT TEST 2015 FOBT 2015 SIGMOIDOSCOPY 2015 VIRTUAL COLONOSCOPY 2015 PNEUMOCOCCAL VACCINES (50+ years) (1 of 1 - PCV) 2020 PAP SMEAR 07/29/2023 07/29/2020, 06/02/2016 COVID-19 VACCINE ( - 2023- season) 2024 06/25/2021, 11/13/2020, 10/21/2020 MAMMOGRAM 05/13/2026 05/13/2024, 06/14, 07/06/2021, Additional history exists Adult Td,Tdap Booster 05/22/2027 05/22/2017, 016 LIPID PANEL 04/25/2029 04/25/2024, 03/14, 04/03/2023, Additional history exists ZOSTER VACCINES Completed 06/07/2022, 04/07/2022 SMOKING STATUS SCREENING (Once After 26 Yrs) Completed 01/31/2024 HEPATITIS A VACCINES Aged Out No long er eligible based on patient's age to complete this topic HIB VACCINES Aged Out No longer eligi ble based on patient's age to complete this topic MENINGOCOCCAL VACCINES (ACWY) Aged Out No longer eligible based on patient's age to complete this topic MENINGOCOCCAL VACCINES (B) Aged Out N o longer eligible based on patient's age to complete this topic Medical Devices Not on file Procedures Procedure Name Priority Date/Time Associated Diagnosis Comments BI MAMMOGRAM SCREENING WITH TOMOSYNTHESIS WITH CAD (BILATERAL) Routine 05/13/2024 7:42 AM EDT Breast cancer screening by mammogram LIPID PANEL Routine 04/25/2024 8:02 AM EDT Pure hypercholesterolemia PAP TEST Routine 07/29/2020 12:00 AM EST from Last 3 Months or Most Recently Relevant to Health Maintenance Results * (ABNORMAL) BI MAMMOGRAM SCREENING WITH TOMOSYNTHESIS WITH CAD (BILATERAL) (05/13/2024 7:42 AM EDT) Anatomical Region Laterality Modality Breast Left, Breast Right, Breast Bilateral Bila teral Mammography 05/13/2024 8:44 AM EDT Impressions 05/13/2024 8:51 AM EDT 1. Mass in the right breast for which additional imaging is recommended with diagnostic mammography and possible ultrasound. 2. No mammographic evidence of malignancy in the left breast. BI-RADS 0 INCOMPLETE Needs additional imaging evaluation The patient will be notified of the results and recommendations. The mammography department will contact the patient to arrange for the additional imaging. Narrative 05/13/2024 8:51 AM EDT BI MAMMOGRAM SCREENING WITH TOMOSYNTHESIS WITH CAD (BILATERAL) Additional patient information: Screening. COMPARISON: Comparison is made with relevant prior imaging. Breast composition: The breast tissue is extremely dense which lowers the sensitivity of mammography. FINDINGS: Right There is an equal density, lobulated mass measuring 1.0 cm in the 3:00/subareolar position at an anterior depth. There are stable (compared with 2018), regional punctate and amorphous calcifications present. Left Benign, regional punctate and amorphous calcifications are stable in appearance. No abnormal masses, suspicious calcifications or other significant findings are identified mammographically in the left breast. Procedure Note Jennifer Keith MD - 05/13/2024 BI MAMMOGRAM SCREENING WITH TOMOSYNTHESIS WITH CAD (BILATERAL) Additional patient information: Screening. COMPARISON: Comparison is made with relevant prior imaging. Breast composition: The breast tissue is extremely dense which lowers thesensitivity of mammography. FINDINGS: Right There is an equal density, lobulated mass measuring 1.0 cm in the3:00/subareolar position at an anterior depth. There are stable (compared with 2018), regional punctate and amorphouscalcifications present. Left Benign, regional punctate and amorphous calcifications are stable inappearance. No abnormal masses, suspicious calcifications or othersignificant findings are identified mammographically in the left breast. IMPRESSION: 1. Mass in the right breast for which additional imaging is recommendedwith diagnostic mammography and possible ultrasound. 2. No mammographic evidence of malignancy in the left breast. BI-RADS 0 INCOMPLETE Needs additional imaging evaluation The patient will be notified of the results and recommendations. Themammography department will contact the patient to arrange for theadditional imaging. us Jennifer Posada MD IMG MG EXAMS Final Resu lt * (ABNORMAL) Lipid panel (04/25/2024 8:02 AM EDT) HDL 87 mg/dL [facility] Comment: Interpretation <40 mg/dL: Low HDL cholesterol (major risk factor for CHD) Greater than or equal to 60 mg/dL: High HDL cholesterol ( negative risk factor for CHD) HDL - cholesterol is affected by a number of factors, e.g. smoking, excerise, hormones, sex and age. CHOLESTEROL 173 0 - 240 mg/dL [facility] TRIGLYCERIDES 61 30 - 160 mg/dL [facility] LDL 74 50 - 129 mg/dL [facility] Comment: LDL levels in terms of risk for coronary heart disease: <100 mg/dL: Optimal 100-129 mg/dL: Near or above optimal 130-159 mg/dL: Borderline high 160-189 mg/dL: High >190 mg/dL: Very High CARDIAC RISK RATIO 2.0(L) 3.3 - 4.4 C [facility] Blood 04/25/2024 8:02 AM EDT 04/25/2024 8:07 AM EDT us Denise Williamson NP LAB BLOOD ORDERABLES Fi nal Result [address] [address] * Pap Smear (07/29/2020 12:00 AM EST) 07/29/2020 07/30/2020 8:2 7 AM EST Narrative SEE NARRATIVE - 08/03/2020 11:40 AM EST [address] [address] [employer] Attorney: Kassandra Valerio MD [employer] Cytology Report FINAL DIAGNOSIS A. PAP SMEAR (SUREPATH) CE: SPECIMEN ADEQUACY: Satisfactory for evaluation; transformation zone present. INTERPRETATION: NEGATIVE FOR INTRAEPITHELIAL LESION OR MALIGNANCY. Electronically Signed Out By: ERIK Vanessa(ASCP) The Pap test is a screening test primarily for squamous cancers and precursors and has associated false-negative and false-positive results. New technologies such as liquid-based preparations may decrease but will not eliminate all false-negative results. Regular sampling and follow-up of unexplained clinical signs and symptoms are recommended to minimize false negative results. PROCEDURES/ADDENDA HPV Testing (Requested) Ordered Date: 07/30/2020 A. PAP SMEAR (SUREPATH) CE: Human Papilloma Virus Test Negative for high-risk human papillomavirus types 16, 18, 45 and the Other high risk probe set (Includes 31, 33, 35, 39, 51, 52, 56, 58, 59, 66, 68) by [employer] Onclarity HR-HPV analysis. Clinical correlation is advised. This HPV test was performed at [facility], [address] [place] [address]. This test has been FDA approved for SurePath cervical cytology specimens. The accuracy and precision of this test for all other specimen sources has been verified in the Cytopathology Laboratory of the [facility] and has not been cleared or approved by the U.S. Food and Drug Administration. Clinical correlation is advised. CLINICAL HISTORY Date of Last Menstrual Period: Not Provided Menstrual History: Blanca-Menopausal Contraceptive History: BCPs Other Clinical Conditions: Screening Pap SPECIMEN SOURCE A: PAP SMEAR (SUREPATH) CE Patient Name: RAZA JARRELL : 1970 (Age: 50) Sex: F Institution: [facility] Location: [facility] Date of Collection: 07/29/2020 Date of Reported: 08/03/2020 11:40 Results to: Jennifer Posada MD us Jennifer Posada MD CYTOLOGY ORDERABLES Final Result SEE NARRATIVE from Last 3 Months or Most Recently Relevant to Health Maintenance [place] [address] [place] [address] PPO EPO PPO EPO PPO EPO PPO EPO PPO EPO PPO EPO [facility] [place] [address] [place] [address] PPO EPO Care Teams Splicing Technician Relationship Specialty Start Date End Date Nitesh Rosenberg DO [address] [place] [address] [email or web address] PCP - General 08/16/17 Leydi Carl MD [address] [place] [address] Historical LMR Provider 06/03/17 Nitesh Rosenberg DO [address] [place] [address] [email or web address] Insurance Assigned Provider 11/17/23 Additional Source Comments The information contained in this document represents components of the legal health record. It is not the complete legal health record.[facility]
--- OUTSIDE RECORDS SUMMARY | 2025-04-09 13:43 | XMS_ITS | Encounter Summary ---
Author Organization [facility] Address [address] [place] [address] Phone Care Team Providers Care Full Stack Php Developer Name Role Phone Leydi Carl MD Unavailable [phone] Nitesh Rosenberg DO Primary Care Provider [phone] Nitesh Rosenberg DO Unavailable Encounter Details Date Type Department Care Team (Late st Contact Info) Description 05/07/2024 Transcribe Orders [facility] Specimen Processing [address] [place] [address] Nitesh Rosenberg DO [address] [facility] [place] [address] [email or web address] Social History Tobacco Use Types Packs/Day Years [...] 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 Not on file Not on fi le documented as of this encounter Plan of Treatment Upcoming Encounters Date Type Department Care Team (Late st Contact Info) Description 05/26/2025 4:10 PM EDT Office Visit [facility] [address] [place] [address] Jennifer Posada MD [address] [address] documented as of this encounter Visit Diagnoses Not on filedocumented in this encounter Care Teams Full Stack Php Developer Relationship Specialty Start Date End Date Nitesh Rosenberg DO [address] [place] [address] [email or web address] PCP - General 08/16/17 Leydi Carl MD [address] [place] [address] Historical LMR Provider 06/03/17 Nitesh Rosenberg DO [address] [place] [address] [address] [place] [address] Insurance Assigned Provider 11/17/23 documented as of this encounter Additional Source Comments The information contained in this document represents components of the legal health record. It is not the complete legal health record.[facility]
--- OUTSIDE RECORDS SUMMARY | 2025-04-09 13:43 | XMS_ITS | Encounter Summary ---
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 file Not on fi le documented as of this encounter Plan of Treatment Upcoming Encounters Date Type Department Care Team (Late st Contact Info) Description 05/26/2025 4:10 PM EDT Office Visit [facility] 22 [place] [address] Jennifer Posada MD [address] [address] [email or web address] documented as of this encounter Visit Diagnoses Not on filedocumented in this encounter Care Teams Museum Librarian Relationship Specialty Start Date End Date Nitesh Rosenberg DO [address] [place] [address] [email or web address] PCP - General 08/16/17 Leydi Carl MD [address] [place] [address] Historical LMR Provider 06/03/17 Nitesh Rosenberg DO [address] [place] [address] [place] [address] [email or web address] Insurance Assigned Provider 11/17/23 documented as of this encounter Additional Source Comments The information contained in this document represents components of the legal health record. It is not the complete legal health record.[facility]
--- OUTSIDE RECORDS SUMMARY | 2025-04-09 13:43 | XMS_ITS | Encounter Summary ---
Author Organization [facility] Address [address] [place] [address] Phone Care Team Providers Care Shift Production Supervisor Name Role Phone Nitesh Rosenberg DO Unavailable Tati Lovell DRUM SPRAYER Unavailable Imani Schulz CNM Unavailable Leydi Carl MD Unavailable [phone] Brijesh Gonzalez MD Unavailable [phone] Liz Chamberlain DRUM SPRAYER Unavailable Nitesh Rosenberg DO Primary Care Provider Nitesh Rosenberg DO Unavailable Encounter Details Date Type Department Care Team (Late st Contact Info) Description 07/29/2020 Procedure Pass [facility], [address] [address] Social History Tobacco Use Types Packs/Day Years [...] 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 Not on file Not on fi le documented as of this encounter Functional Status documented as of this encounter Plan of Treatment Upcoming Encounters Date Type Department Care Team (Late st Contact Info) Description 05/26/2025 4:10 PM EDT Office Visit [facility] [address] [place] [address] [place] [address] Jennifer Posada MD [address] [address] documented as of this encounter Visit Diagnoses Not on filedocumented in this encounter Additional Health Concerns Infection Onset Date Last Indicated Resolved Time Influenza A 08/05/2023 08/05/2023 08/12/2023 1:22 AM EST CoV-Risk 08/05/2023 08/05/2023 08/16/2023 1:23 AM EST documented as of this encounter Care Teams Shift Production Supervisor Relationship Specialty Start Date End Date Nitesh Rosenberg DO [address] [place] [address] PCP - General 08/16/17 Nitesh Rosenberg DO [address] [place] [address] Historical LMR Provider 06/03/17 08/20/21 Tati Lovell NP [address] [address] Historical LMR Provider 06/03/17 2 Imani Schulz CNM [address] [place] [address] Historical LMR Provider 06/03/17 2 Leydi Carl MD [address] [place] [address] Historical LMR Provider 06/03/17 Brijesh Gonzalez MD [address] [place] [address] Historical LMR Provider 06/03/1708/20/2 2 Liz Chamberlain NP [address] [place] [address] Historical LMR Provider 06/03/17 2 Nitesh Rosenberg DO [address] [place] [address] [email or web address] Insurance Assigned Provider 11/17/23 documented as of this encounter Additional Source Comments The information contained in this document represents components of the legal health record. It is not the complete legal health record.[facility]
--- OUTSIDE RECORDS SUMMARY | 2025-04-09 13:43 | XMS_ITS | Encounter Summary ---
Author Organization [facility] Address [address] [address] Phone Care Team Providers Care Junk Removal Specialist Name Role Phone Leydi Carl MD Unavailable [phone] BigNitesh lino DO Primary Care Provider [phone] Nitesh Rosenberg DO Unavailable Encounter Details Date Type Department Care Team (Late st Contact Info) Description 05/15/2024 Ancillary Orders [facility], [facility] 30 [place] [address] Jennifer Posada MD [address] [address] [email or web address] Abnormal mammogram (Primary Dx) Social History Tobacco Use Types [...] 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 file Not on fi le documented as of this encounter Plan of Treatment Upcoming Encounters Date Type Department Care Team (Late st Contact Info) Description 05/26/2025 4:10 PM EDT Office Visit [facility] [address] [place] [address] Jennifer Posada MD 22 [facility], [address] [place] [address] documented as of this encounter Results * BI US BREAST LIMITED (RIGHT) (06/19/2024 2:32 PM EST) Anatomical Region Laterality Modality Breast Right, Breast Bilateral Right U ltrasound 06/19/2024 2:33 PM EST Impressions 06/19/2024 2:44 PM EST Benign findings on the right. No mammographic evidence of malignancy in the right breast. BI-RADS 2 BENIGN Results and recommendations were communicated to the patient at time of examination. Narrative 06/19/2024 2:44 PM EST BI MAMMOGRAM DIAGNOSTIC WITH TOMOSYNTHESIS WITH CAD (RIGHT), BI US BREAST LIMITED (RIGHT) Additional patient information: Mass in the medial/subareolar right breast on recent screening mammogram. COMPARISON: Comparison is made with relevant prior imaging. Breast composition: The breast tissue is extremely dense which lowers the sensitivity of mammography. FINDINGS: Right Mammogram: In the 3:00 position, at an anterior depth, 1 cm from the nipple there is an oval, low-density, bilobed mass measuring 0.8 cm. Right Ultrasound: Targeted ultrasound was performed in the area of mammographic concern. In the 2-3:00 position, 1 cm from the nipple and at an anterior depth there is a septated, anechoic, oval cyst measuring 0.7 cm. Procedure Note Jennifer Keith MD - 06/19/2024 BI MAMMOGRAM DIAGNOSTIC WITH TOMOSYNTHESIS WITH CAD (RIGHT), BI US BREASTLIMITED (RIGHT) Additional patient information: Mass in the medial/subareolar right breaston recent screening mammogram. COMPARISON: Comparison is made with relevant prior imaging. Breast composition: The breast tissue is extremely dense which lowers thesensitivity of mammography. FINDINGS: Right Mammogram: In the 3:00 position, at an anterior depth, 1 cm from the nipple there isan oval, low-density, bilobed mass measuring 0.8 cm. Right Ultrasound: Targeted ultrasound was performed in the area ofmammographic concern. In the 2-3:00 position, 1 cm from the nipple and atan anterior depth there is a septated, anechoic, oval cyst measuring 0.7cm. IMPRESSION: Benign findings on the right. No mammographic evidence of malignancy inthe right breast. BI-RADS 2 BENIGN Results and recommendations were communicated to the patient at time ofexamination. us Jennifer Posada MD IMG US BREAST Final Resu lt * BI MAMMOGRAM DIAGNOSTIC WITH TOMOSYNTHESIS WITH CAD (RIGHT) (06/19/2024 1:17 PM EST) Anatomical Region Laterality Modality Breast Right, Breast Bilateral Right M ammography 06/19/2024 2:33 PM EST Impressions 06/19/2024 2:44 PM EST Benign findings on the right. No mammographic evidence of malignancy in the right breast. BI-RADS 2 BENIGN Results and recommendations were communicated to the patient at time of examination. Narrative 06/19/2024 2:44 PM EST BI MAMMOGRAM DIAGNOSTIC WITH TOMOSYNTHESIS WITH CAD (RIGHT), BI US BREAST LIMITED (RIGHT) Additional patient information: Mass in the medial/subareolar right breast on recent screening mammogram. COMPARISON: Comparison is made with relevant prior imaging. Breast composition: The breast tissue is extremely dense which lowers the sensitivity of mammography. FINDINGS: Right Mammogram: In the 3:00 position, at an anterior depth, 1 cm from the nipple there is an oval, low-density, bilobed mass measuring 0.8 cm. Right Ultrasound: Targeted ultrasound was performed in the area of mammographic concern. In the 2-3:00 position, 1 cm from the nipple and at an anterior depth there is a septated, anechoic, oval cyst measuring 0.7 cm. Procedure Note Jennifer Keith MD - 06/19/2024 BI MAMMOGRAM DIAGNOSTIC WITH TOMOSYNTHESIS WITH CAD (RIGHT), BI US BREASTLIMITED (RIGHT) Additional patient information: Mass in the medial/subareolar right breaston recent screening mammogram. COMPARISON: Comparison is made with relevant prior imaging. Breast composition: The breast tissue is extremely dense which lowers thesensitivity of mammography. FINDINGS: Right Mammogram: In the 3:00 position, at an anterior depth, 1 cm from the nipple there isan oval, low-density, bilobed mass measuring 0.8 cm. Right Ultrasound: Targeted ultrasound was performed in the area ofmammographic concern. In the 2-3:00 position, 1 cm from the nipple and atan anterior depth there is a septated, anechoic, oval cyst measuring 0.7cm. IMPRESSION: Benign findings on the right. No mammographic evidence of malignancy inthe right breast. BI-RADS 2 BENIGN Results and recommendations were communicated to the patient at time ofexamination. us Jennifer Posada MD IMG MG EXAMS Final Resu lt documented in this encounter Visit Diagnoses Diagnosis Abnormal mammogram- Primary Abnormal mammogram, unspecified Abnormal mammogram Abnormal mammogram, unspecified Abnormal mammogram Abnormal mammogram, unspecified documented in this encounter Care Teams Junk Removal Specialist Relationship Specialty Start Date End Date Nitesh Rosenberg DO 4 [place] [address] PCP - General 08/16/17 Leydi Carl MD [address] [place] [address] Historical LMR Provider 06/03/17 Nitesh Rosenberg DO 179 [place] [address] [email or web address] Insurance Assigned Provider 11/17/23 documented as of this encounter Additional Source Comments The information contained in this document represents components of the legal health record. It is not the complete legal health record.[facility]
--- OUTSIDE RECORDS SUMMARY | 2025-04-09 13:43 | XMS_ITS | Encounter Summary ---
Author Organization [facility] Address [address] [place] [address] Phone Care Team Providers Care Document Control Associate Name Role Phone Chet Nitesh Herman DO Unavailable Tati Lovell DNA ANALYST Unavailable Imani Schulz CNM Unavailable Leydi Carl MD Unavailable [phone] Brijesh Gonzalez MD Unavailable [phone] Liz Chamberlain DNA ANALYST Unavailable Nitesh Rosenberg DO Primary Care Provider Nitesh Rosenberg DO Unavailable Encounter Details Date Type Department Care Team (Latest Contact Info) Description 06/16/2020 Transcribe Orders Virtual Department [address] [place] [address] Keira Alonso PA [address] [place] [address] [place] [address] Thoracic spine pain (Primary Dx) Social History Tobacco Use Types [...] 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 Not on fi le documented as of this encounter Plan of Treatment Upcoming Encounters Date Type Department Care Team (Late st Contact Info) Description 05/26/2025 4:10 PM EDT Office Visit [facility] [address] [place] [address] Jennifer Posada MD 22 [facility], [address] [place] [address] [email or web address] documented as of this encounter Results * XR THORACIC SPINE 3 VIEW (06/23/2020 10:36 AM EST) Anatomical Region Laterality Modality T-spine Computed Radiogr aphy 06/23/2020 10:5 5 AM EST Impressions 06/23/2020 10:57 AM EST Mild-moderate degenerative changes. No other explanation for pain. Narrative 06/23/2020 10:57 AM EST HISTORY: Chronic pain for a year. COMPARISON: None VIEWS: AP, lateral and swimmer's lateral views. FINDINGS: No compression fractures or subluxations. Mild-moderate degenerative endplate changes at multiple levels. Disc spaces relatively well-maintained. No evidence of suspicious lytic or blastic lesions within the bones. Procedure Note Issa Silva MD - 06/23/2020 HISTORY: Chronic pain for a year. COMPARISON: None VIEWS: AP, lateral and swimmer's lateral views. FINDINGS: No compression fractures or subluxations. Mild-moderate degenerativeendplate changes at multiple levels. Disc spaces relativelywell-maintained. No evidence of suspicious lytic or blastic lesions withinthe bones. IMPRESSION: Mild-moderate degenerative changes. No other explanation for pain. Keira CHO IMG XR SPINE Final Resul t documented in this encounter Visit Diagnoses Diagnosis Thoracic spine pain- Primary Pain in thoracic spine Thoracic spine pain Pain in thoracic spine documented in this encounter Additional Health Concerns Infection Onset Date Last Indicated Resolved Time Influenza A 08/05/2023 08/05/2023 08/12/2023 1:22 AM EST CoV-Risk 08/05/2023 08/05/2023 08/16/2023 1:23 AM EST documented as of this encounter Care Teams Document Control Associate Relationship Specialty Start Date End Date Nitesh Rosenberg DO [address] [place] [address] PCP - General 08/16/17 Nitesh Rosenberg DO [address] [place] [address] Historical LMR Provider 06/03/17 08/20/21 Tati Lovell NP [address] [address] Historical LMR Provider 06/03/17 2 Imani Schulz CNM 30 [place] [address] Historical LMR Provider 06/03/17 2 Leydi Carl MD [address] [place] [address] Historical LMR Provider 06/03/17 Brijesh Gonzalez MD [address] [place] [address] Historical LMR Provider 06/03/17 2 Liz Chamberlain NP [address] [place] [address] Historical LMR Provider 06/03/17 2 Nitesh Rosenberg DO [address] [place] [address] [email or web address] Insurance Assigned Provider 11/17/23 documented as of this encounter Additional Source Comments The information contained in this document represents components of the legal health record. It is not the complete legal health record.[facility]
--- OUTSIDE RECORDS SUMMARY | 2025-04-09 13:43 | XMS_ITS | Encounter Summary ---
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 Not on fi le documented as of this encounter Plan of Treatment Upcoming Encounters Date Type Department Care Team (Late st Contact Info) Description 05/26/2025 4:10 PM EDT Office Visit [facility] [address] [place] [address] [place] [address] Jennifer Posada MD 22 [facility], [address] [place], [place] [id number] [email or web address] documented as of this encounter Visit Diagnoses Not on filedocumented in this encounter Additional Health Concerns Infection Onset Date Last Indicated Resolved Time Influenza A 08/05/2023 08/05/2023 08/12/2023 1:22 AM EST CoV-Risk 08/05/2023 08/05/2023 08/16/2023 1:23 AM EST documented as of this encounter Care Teams Construction Carpenter Relationship Specialty Start Date End Date Nitesh Rosenberg DO [address] [place] [address] [email or web address] PCP - General 08/16/17 Leydi Carl MD 444 [place] [address] Historical LMR Provider 06/03/17 Nitesh Rosenberg DO [address] [place] [address] [email or web address] Insurance Assigned Provider 11/17/23 documented as of this encounter Additional Source Comments The information contained in this document represents components of the legal health record. It is not the complete legal health record.[facility]
--- OUTSIDE RECORDS SUMMARY | 2025-04-09 13:43 | XMS_ITS | Encounter Summary ---
Author Organization [facility] Address [address] [place] [address] Phone Care Team Providers Care Head Of Acquisitions Name Role Phone Nitesh Rosenberg DO Unavailable Tati Lovell WARPER FIXER Unavailable Imani Schulz CNM Unavailable Leydi Carl MD Unavailable [phone] Brijesh Gonzalez MD Unavailable [phone] Liz Chamberlain WARPER FIXER Unavailable Nitesh Rosenberg DO Primary Care Provider Nitesh Rosenberg DO Unavailable Encounter Details Date Type Department Care Team (Late st Contact Info) Description 03/19/2018 Ancillary Orders Virtual Department [address] [place] [address] Nitesh Rosenberg DO 179 [place] [address] Breast screening Social History Tobacco Use Types Packs/Day Years [...] 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 Not on fi le documented as of this encounter Plan of Treatment Upcoming Encounters Date Type Department Care Team (Late st Contact Info) Description 05/26/2025 4:10 PM EDT Office Visit [facility] [address] [place] [address] Jennifer Posada MD 22 [facility], [address] [place] [address] documented as of this encounter Results * BI MAMMOGRAM SCREENING WITH TOMOSYNTHESIS WITH CAD (BILATERAL) (04/22/2018 7:58 AM EDT) Anatomical Region Laterality Modality Breast Left, Breast Right, Breast Bilateral Bila teral Mammography 04/22/2018 11:1 3 AM EDT Impressions 04/22/2018 11:16 AM EDT No mammographic evidence of malignancy. BI-RADS CATEGORY: 2 - Benign finding. DENSITY: The breast tissue is extremely dense, an appearance which could obscure a lesion on mammography. POS - CDHMAMA Narrative 04/22/2018 11:16 AM EDT Standard digital full-field 2-D C view and two-plane tomographic imaging was performed and compared with multiple prior studies, most recently 03/29/2017 and 04/09/2017, with utilization of computer-aided detection. The breast parenchyma is extremely dense, limiting mammographic sensitivity. The stromal markings are essentially unchanged in overall appearance and distribution. No dominant spiculated mass, suspicious clustered microcalcifications, or focal zone of pathologic skin thickening or retraction are noted to have arisen in the interim. Scattered and loosely grouped punctate and coarse grossly benign-appearing microcalcifications are again noted bilaterally. Procedure Note Sarah Liao MD - 04/22/2018 Standard digital full-field 2-D C view and two-plane tomographic imagingwas performed and compared with multiple prior studies, most cwyfbsuh83/17/2017 and 04/09/2017, with utilization of computer-aided detection. The breast parenchyma is extremely dense, limiting mammographicsensitivity. The stromal markings are essentially unchanged in overallappearance and distribution. No dominant spiculated mass, suspiciousclustered microcalcifications, or focal zone of pathologic skin thickeningor retraction are noted to have arisen in the interim. Scattered andloosely grouped punctate and coarse grossly benign-appearingmicrocalcifications are again noted bilaterally. IMPRESSION: No mammographic evidence of malignancy. BI-RADS CATEGORY: 2 - Benign finding. DENSITY: The breast tissue is extremely dense, an appearance which couldobscure a lesion on mammography. POS - CDHMAMA us Nitesh Rosenberg DO IMG MG EXAMS Final Result documented in this encounter Visit Diagnoses Diagnosis Breast screening Breast screening, unspecified Breast screening Breast screening, unspecified documented in this encounter Additional Health Concerns Infection Onset Date Last Indicated Resolved Time Influenza A 08/05/2023 08/05/2023 08/12/2023 1:22 AM EST CoV-Risk 08/05/2023 08/05/2023 08/16/2023 1:23 AM EST documented as of this encounter Care Teams Head Of Acquisitions Relationship Specialty Start Date End Date Nitesh Rosenberg DO [address] [place] [address] PCP - General 08/16/17 Nitesh Rosenberg DO [address] [place] [address] Historical LMR Provider 06/03/17 08/20/21 Tati Lovell NP [address] [address] Historical LMR Provider 06/03/17 2 Imani Schulz CNM [address] [place] [address] Historical LMR Provider 06/03/17 2 Leydi Carl MD [address] [place] [address] Historical LMR Provider 06/03/17 Brijesh Gonzalez MD 61 [place] [address] Historical LMR Provider 06/03/17 2 Liz Chamberlain NP [address] [place] [address] Historical LMR Provider 06/03/17 2 Nitesh Rosenberg DO [address] [place] [address] [email or web address] Insurance Assigned Provider 11/17/23 documented as of this encounter Additional Source Comments The information contained in this document represents components of the legal health record. It is not the complete legal health record.[facility]
--- OUTSIDE RECORDS SUMMARY | 2025-04-09 13:43 | XMS_ITS | Encounter Summary ---
Author Organization Formerly [facility] Address [address] [place] [address] Phone Care Team Providers Care Auto Overhauler Name Role Phone Chet Nitesh Herman DO Unavailable Tati Lovell ASSEMBLY LINE LEADER Unavailable [phone] Imani Schulz CNM Unavailable Leydi Carl MD Unavailable [phone] Brijesh Gonzalez MD Unavailable [phone] Liz Chamberlain ASSEMBLY LINE LEADER Unavailable Nitesh Rosenberg DO Primary Care Provider Nitesh Rosenberg DO Unavailable Encounter Details Date Type Department Care Team (Late st Contact Info) Description 06/16/2020 Ancillary Orders Virtual Department [address] [place] [address] Keira Alonso PA [address] [place] [address] [place] [address] Low back pain, unspecified back pain laterality, unspecified chronicity, unspecified whether sciatica present Social History Tobacco Use Types Packs/Day Years [...] 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 Not on file Not on fi le documented as of this encounter Plan of Treatment Upcoming Encounters Date Type Department Care Team (Late st Contact Info) Description 05/26/2025 4:10 PM EDT Office Visit [facility] [address] [place] [address] Jennifer Posada MD 22 [facility], [address] [place] [address] [email or web address] documented as of this encounter Results * XR LUMBOSACRAL SPINE 2-3 VIEWS (06/23/2020 10:32 AM EST) Anatomical Region Laterality Modality L-spine Computed Radiogr aphy 06/23/2020 10:5 7 AM EST Impressions 06/23/2020 11:01 AM EST Overall, very mild degenerative changes. No other explanation for pain. Narrative 06/23/2020 11:01 AM EST HISTORY: Lower back pain. COMPARISON: CT abdomen/pelvis 11/04/2013 VIEWS: AP and lateral views. FINDINGS: No compression fractures or subluxations. Disc spaces well-maintained. Tiny anterior osteophytes at multiple levels. Mild facet arthropathy at L4-L5. No evidence of suspicious lytic or blastic lesions within the bones. Procedure Note Issa Silva MD - 06/23/2020 HISTORY: Lower back pain. COMPARISON: CT abdomen/pelvis 11/04/2013 VIEWS: AP and lateral views. FINDINGS: No compression fractures or subluxations. Disc spaces well-maintained.Tiny anterior osteophytes at multiple levels. Mild facet arthropathy atL4-L5. No evidence of suspicious lytic or blastic lesions within thebones. IMPRESSION: Overall, very mild degenerative changes. No other explanation for pain. Keira CHO IMG XR SPINE Final Resul t documented in this encounter Visit Diagnoses Diagnosis Low back pain, unspecified back pain laterality, unspecified chronicity, unspecified whether sciatica present Low back pain, unspecified back pain laterality, unspecified chronicity, unspecified whether sciatica present documented in this encounter Additional Health Concerns Infection Onset Date Last Indicated Resolved Time Influenza A 08/05/2023 08/05/2023 08/12/2023 1:22 AM EST CoV-Risk 08/05/2023 08/05/2023 08/16/2023 1:23 AM EST documented as of this encounter Care Teams Auto Overhauler Relationship Specialty Start Date End Date Nitesh Rosenberg DO [address] [place] [address] PCP - General 08/16/17 Nitesh Rosenberg DO [address] [place] [address] Historical LMR Provider 06/03/17 08/20/21 Tati Lovell NP [address] [address] Historical LMR Provider 06/03/17 2 Imani Schulz CNM [address] [place] [address] Historical LMR Provider 06/03/17 2 Leydi Carl MD [address] [place] [address] Historical LMR Provider 06/03/17 Brijesh Gonzalez MD [address] [place] [address] Historical LMR Provider 06/03/17 2 Liz Chamberlain NP [address] [place] [address] Historical LMR Provider 06/03/17 2 Nitesh Rosenberg DO [address] [place] [address] [email or web address] Insurance Assigned Provider 11/17/23 documented as of this encounter Additional Source Comments The information contained in this document represents components of the legal health record. It is not the complete legal health record.[facility]
--- OUTSIDE RECORDS SUMMARY | 2025-04-09 13:43 | XMS_ITS | Encounter Summary ---
Author Organization [facility] Address [address] [place] [address] Phone Care Team Providers Care Inspector Tubes Name Role Phone Chet Nitesh Herman DO Unavailable Tati Lovell COLORER Unavailable Imani Schulz CNM Unavailable Leydi Carl MD Unavailable [phone] Brijesh Gonzalez MD Unavailable [phone] Liz Chamberlain COLORER Unavailable Nitesh Rosenberg DO Primary Care Provider [phone] Nitesh Rosenberg DO Unavailable Encounter Details Date Type Department Care Team (Latest Contact Info) Description 06/17/2019 Transcribe Orders [facility] [address] [place] [address] Cadence Orellana PA-C 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 file Not on fi le documented as of this encounter Plan of Treatment Upcoming Encounters Date Type Department Care Team (Late st Contact Info) Description 05/26/2025 4:10 PM EDT Office Visit [facility] [address] [place] [address] Jennifer Posada MD 22 [facility], [address] [place] [address] [email or web address] documented as of this encounter Results * 25-OH vitamin D (06/17/2019 7:38 AM EST) 25 OH VIT D (TOTAL) 42 30 - 60 ng/mL [facility] Blood 06/17/2019 7:38 AM EST 06/17/2019 8:08 AM EST November Reyna [facility] LAB BLOOD ORDERABLES Final R esult [facility] [address] [place] [address] * (ABNORMAL) CBC and differential (06/17/2019 7:38 AM EST) WBC 7.90 3.40 - 11.20 K/uL [facility] RBC 4.20 3.80 - 4.80 M/uL [facility] HGB 13.6 12.0 - 15.0 g/dL [facility] HCT 40.2 36.0 - 46.0 % [facility] PLT 273 130 - 400 K/uL [facility] MCV 95.7 79.0 - 98.0 fL [facility] MCH 32.4 27.0 - 34.8 pg [facility] MCHC 33.8 31.5 - 36.0 g/dL [facility] RDW 12.1 10.8 - 14.6 % [facility] MPV 9.3(L) 9.4 - 12.4 fl [facility] NRBC 0.00 0.00 /100 WBCs [facility] ABSOLUTE NRBC 0.00 0.00 K/uL [facility] DIFF METHOD Auto [facility] NEUTS 68.7 45.30 - 77.70 % [facility] LYMPHS 20.5 12.30 - 39.70 % [facility] MONOS 7.0 4.10 - 12.80 % [facility] EOS 2.2 0 - 7.2 % [facility] BASOS 1.3 0 - 2.80 % [facility] Granulocytes, immature (%) 0.3 0.0 - 0.9 % [facility] ABSOLUTE NEUTS 5.44 1.40 - 7.70 K/uL [facility] ABSOLUTE LYMPHS 1.62 0.60 - 3.20 K/uL [facility] ABSOLUTE MONOS 0.55 0.11 - 0.59 K/uL [facility] ABSOLUTE EOS 0.17 0.01 - 0.50 K/uL [facility] ABSOLUTE BASOS 0.10(H) 0.00 - 0.08 K/uL [facility] Granulocytes, immature 0.02 0.00 - 0.05 K/uL [facility] Blood 06/17/2019 7:38 AM EST 06/17/2019 8:08 AM EST November Reyna [facility] LAB BLOOD ORDERABLES Final R esult Performing Organization Address City/State/[facility] Co de Phone Number [address] [address] * (ABNORMAL) Lipid panel (06/17/2019 7:38 AM EST) HDL 68 mg/dL [facility] Comment: Interpretation <40 mg/dL: Low HDL cholesterol (major risk factor for CHD) Greater than or equal to 60 mg/dL: High HDL cholesterol ( negative risk factor for CHD) HDL - cholesterol is affected by a number of factors, e.g. smoking, excerise, hormones, sex and age. CHOLESTEROL 148 0 - 240 mg/dL [facility] TRIGLYCERIDES 105 30 - 160 mg/dL [facility] LDL 59 50 - 129 mg/dL [facility] Comment: LDL levels in terms of risk for coronary heart disease: <100 mg/dL: Optimal 100-129 mg/dL: Near or above optimal 130-159 mg/dL: Borderline high 160-189 mg/dL: High >190 mg/dL: Very High CARDIAC RISK RATIO 2.2(L) 3.3 - 4.4 C [facility] Blood 06/17/2019 7:38 AM EST 06/17/2019 8:08 AM EST November Reyna [facility] LAB BLOOD ORDERABLES Final R esult [facility] [address] [place] [address] * Comprehensive metabolic panel (06/17/2019 7:38 AM EST) SODIUM 141 133 - 146 mmol/L [facility] POTASSIUM 4.2 3.3 - 5.1 mmol/L [facility] CHLORIDE 104 96 - 108 mmol/L [facility] CO2 26 21 - 35 mmol/L [facility] BUN 10 6 - 19 mg/dL [facility] CREATININE 0.60 0.5 - 1.5 mg/dL [facility] GLUCOSE 91 70 - 99 mg/dL [facility] ALBUMIN 4.1 3.9 - 4.8 g/dL [facility] TOTAL PROTEIN 6.7 6.5 - 8.0 g/dL [facility] CALCIUM 9.4 8.4 - 10.3 mg/dL [facility] ALKALINE PHOSPHATASE 46 39 - 117 U/L [facility] TOTAL BILIRUBIN 0.5 0.0 - 1.2 mg/dL [facility] AST 21 0 - 37 U/L [facility] ALT 12 0 - 40 U/L [facility] GLOBULIN 2.6 1 - 4.8 g/dL [facility] EGFR 107 >59 mL/min/1.7 3m2 [facility] Comment:If patient is black, multiply result by 1.159. Estimated glomerular filtration rate calculated using the CKD-EPI equation. ANION GAP 15 10 - 20 mmol/L [facility] Blood 06/17/2019 7:38 AM EST 06/17/2019 8:08 AM EST November Reyna [facility] LAB BLOOD ORDERABLES Final R esult [address] [address] documented in this encounter Visit Diagnoses Diagnosis Routine general medical examination at a health care facility- Primary Avitaminosis D Unspecified vitamin D deficiency documented in this encounter Additional Health Concerns Infection Onset Date Last Indicated Resolved Time Influenza A 08/05/2023 08/05/2023 08/12/2023 1:2 2 AM EST CoV-Risk 08/05/2023 08/05/2023 08/16/2023 1:23 AM EST documented as of this encounter Care Teams Inspector Tubes Relationship Specialty Start Date End Date Nitesh Rosenberg DO [address] [place] [address] PCP - General 08/16/17 Nitesh Rosenberg DO [address] [place] [address] Historical LMR Provider 06/03/17 08/20/21 Tati Lovell NP [address] [place] [address] Historical LMR Provider 06/03/17 2 Imani Schulz CNM [address] [place] [address] Historical LMR Provider 06/03/17 2 Leydi Carl MD [address] [place] [address] Historical LMR Provider 06/03/17 Brijesh Gonzalez MD [address] [place] [address] Historical LMR Provider 06/03/17 2 Liz Chamberlain NP [address] [place] [address] Historical LMR Provider 06/03/17 2 Nitesh Rosenberg DO [address] [place] [address] [email or web address] Insurance Assigned Provider 11/17/23 documented as of this encounter Additional Source Comments The information contained in this document represents components of the legal health record. It is not the complete legal health record.[facility]
[2025-04-10] VITALS (7 sets, daily range): BP systolic 93–115; BP diastolic 65–78; PULSE 16–87; RESP 16; TEMP 36.7–37.1; O2SAT 99–100; BMI 18.9
--- NOTE | 2025-04-10 07:26 | MHC.SHP ---
Pre-Procedural Eval Section A - 24 Hr Update-Section A only Date of Service: 04/10/25 Section B - Complete if H&P > 30 days Chief Complaint: DEPRESSION Details of Present Illness: pt feeling much better Allergies: Allergies Allergy/AdvReac Type Severity Reaction Status Date / Time No Known Allergies Allergy Verified 03/11/24 14:49 Review of Systems Sugical H&P ROS: Negative: Cardiovascular, Respiratory and Psychiatric (feels well) Exam Surgical H&P Exam: Normal: Heart, Normal: Lungs and Normal: Neurological Plan I have reviewed the history and physical and performed a pertinent physical examination on my patient. No changes have occurred unless specified. Time Spent With Patient Time: Total time managing care of this patient today ____ minutes.
--- NOTE | 2025-04-10 11:16 | HO.ANESPROP2 ---
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 (Acute) Bipolar 1 disorder, depressed, severe (Acute) Cognitive and behavioral changes (Acute) Other anxiety states (Acute) Bipolar affective, mixed, severe (Acute) Akathisia (Acute) Panic attacks (Acute) Anxiety (Acute) Past Medical History Medical History Menopause Routine medical exam Bipolar affective, mixed, severe Akathisia Panic attacks Anxiety No known health problems Functional capacity: independent ambulation Family History Family history of problems with anesthesia: No Surgical History History of Problems with Anesthesia: No Social History Social History Household Members: Spouse Household Members Other:: Housing: House Are you a primary care management specialist to a significant other at home: No Do you presently have visiting nurse or other home services: No Alcohol intake: current Alcohol intake frequency: does not drink Alcohol type: wine Patient Tobacco Use Status: Never used Tobacco e-Cigarette/Vaping Use: Never Used Second Hand Smoke Exposure: No service: No Sexual orientation: Straight/Heterosexual Meds Allergies Allergy/AdvReac Type Severity Reaction Status Date / Time No Known Allergies Allergy Verified 03/11/24 14:49 Home Medications ?Medication ?Instructions ?Recorded ?Confirmed ?Last Taken ?Type estradiol 0.0375 mg/24 hr 1 patch topical 2XW 03/11/24 03/11/24 03/11/24 History semiweekly transdermal patch progesterone micronized 100 mg 100 mg PO DAILY 03/11/24 03/11/24 03/11/24 History capsule gabapentin 300 mg capsule 300 mg PO 3XD 10/23/24 10/23/24 Unknown History olanzapine 2.5 mg tablet 2.5 mg PO BEDTIME 10/23/24 10/23/24 Unknown History Exam Height,Weight and Vital Signs: Height 5 ft 6 in Weight 53.07 kg Last Vital Signs Temp 98.7 F 04/10/25 08:15 Pulse 87 04/10/25 08:15 Resp 16 04/10/25 08:15 BP 113/70 04/10/25 08:15 Pulse Ox 99 04/10/25 08:15 O2 Del Method Room Air 08/29/25 08:15 Airway Mallampati Class: II TM Dist: >3cm Neck ROM: Full Heart: RRR Lungs: CTA Assessment and Plan Assessment Anesthesia Assessment: Anesthesia Plan Discussed Final Anesthetic Review Family History of Problems with Anesthesia: No History of Problems with Anesthesia: No NPO: Yes ASA Class: III Final Preanesthetic Review: Meds/Allgs Chart Reviewed, Consent Obtained/Reviewed and Anes Risks/Benef Reviewed Patient Risk: Low Procedure Risk: Low Anesthetic Plan Anesthetic Plan: GA Disposition: Standard PACU
--- NOTE | 2025-04-10 11:19 | HO.POSTANES ---
Post Anesthesia Evaluation Post Anesthesia Evaluation Date of Service: 04/10/25 Vital Signs: Vital Signs Temp Pulse Resp BP Pulse Ox O2 Del Method 04/10/25 08:15 98.7 F 87 16 113/70 99 Room Air 04/10/25 08:00 86 16 115/75 99 Room Air 04/10/25 07:55 82 16 110/73 99 Room Air 04/10/25 07:50 85 16 107/78 99 Room Air 04/10/25 07:45 72 16 107/77 99 Room Air 04/10/25 07:43 98.6 F 70 16 95/65 100 Room Air 04/10/25 06:23 98.1 F 16 L 16 93/66 99 Room Air Anesthesia: General Mental Status: Awake Pain Control: Satisfactory Nausea/Vomiting: None Hydration: Adequate Anesthesia-Related Issues: No Anes. Related Issues
--- NOTE | 2025-04-14 21:39 | HO.ECTPROC ---
ECT Procedure Note Diagnosis/Treatment Date of Service: 04/14/25 Previous ECT Date: 04/06/25 Current Treatment Number: 4 Treatment: Series Interval Clinical Notes: Patient feeling much improved will now be seen psychiatrically by Dr. Goldman no significant concerns or complaints 1st 3 treatments Time: Total time managing care of this patient today __30__ minutes. ECT Settings Device: THYMATRON DGx Electrode Placement: Right Unilateral Program/Pulse Width: 0.25 Energy Percent: 100 Seizure Duration By EEG (in seconds): 45 Medications Administration General Anesthetic: Etomidate (14) Muscle Relaxant: Succinylcholine (80) Ancillary Medications Miscillaneous Medications: Midazolam (1mg) Airway Management Airway Management: Bag Mask Ventilation Treatment Recommendations No Changes Recommended: No change Notes: Patient appears to be responding quickly will try and see if we can extend treatments follow-up in approximately 1 week Pt Tolerated Procedure w/o Issue: Yes
== END 2025-04-10 08:30 | disposition home or self-care (01) ==
PROVIDERS: PCP Internal Medicine; Visit Provider Psychiatry & Neurology Psychiatry
PROC: (CPT 90870; principal; 2025-04-10 08:00)
DX: F33.2 Major depressive disorder, recurrent severe without psychotic features (principal); F41.9 Anxiety disorder, unspecified; F41.0 Panic disorder [episodic paroxysmal anxiety]; Z79.899 Other long term (current) drug therapy
CPT/HCPCS: 90870; J0330; J2250

== ENCOUNTER → 2025-04-10 05:59 | Outpatient (BNV) | payer BC, SELFPAY | PROVIDERS: PCP Internal Medicine; Visit Provider Psychiatry & Neurology Psychiatry | DX: F33.2 Major depressive disorder, recurrent severe without psychotic features (principal) | CPT/HCPCS: 90870 ==

== ENCOUNTER 2025-04-17 05:56 | Day surgery (SDC) | payer BC, SELFPAY ==
--- OUTSIDE RECORDS SUMMARY | 2025-04-14 12:53 | XMS_ITS | Encounter Summary ---
Author Organization [facility] Address [address] [place] [address] Phone Care Team Providers Care Shop Girl Name Role Phone Nitesh Rosenberg DO Unavailable Tati Lovell QUARTZ MOUNTER Unavailable [phone] Imani Schulz CNM Unavailable Leydi Carl MD Unavailable [phone] Brijesh Gonzalez MD Unavailable [phone] Liz Chamberlain QUARTZ MOUNTER Unavailable Nitesh Rosenberg DO Primary Care Provider Nitesh Rosenberg DO Unavailable Encounter Details Date Type Department Care Team (Late st Contact Info) Description 03/19/2018 Ancillary Orders Virtual Department [address] [place] [address] Nitesh Rosenberg DO 179 [facility] [place] [address] Breast screening Social History Tobacco Use Types [...] 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 [...] documented as of this encounter Care Teams Shop Girl Relationship Specialty Start Date End Date Nitesh Rosenberg DO [address] [place] [address] PCP - General 08/16/17 Nitesh Rosenberg DO [address] [place] [address] Historical LMR Provider 06/03/17 08/20/21 Tati Lovell NP [address] [address] Historical LMR Provider 06/03/17 2 Imani Schulz CNM [address] [place] [address] Historical LMR Provider 06/03/17 2 Leydi Carl MD [address] [place] [address] Historical LMR Provider 06/03/17 Brijesh Gonzalez MD [address] [place] [address] Historical LMR Provider 06/03/17 2 Liz Chamberlain NP [address] [place] [address] Historical LMR Provider 06/03/17 2 Nitesh Rosenberg DO [address] [place] [address] [email or web address] Insurance Assigned Provider 11/17/23 documented as of this encounter Additional Source Comments The information contained in this document represents components of the legal health record. It is not the complete legal health record.[facility]
--- OUTSIDE RECORDS SUMMARY | 2025-04-14 12:53 | XMS_ITS | Clinical Summary ---
Author Organization [facility] Address [address] [place] [address] Phone Care Team Providers Care Vascular Technologist Sonographer Name Role Phone Leydi Carl MD Unavailable [phone] [place], Nitesh Herman DO Primary Care Provider [phone] Nitesh Rosenberg DO Unavailable Allergies No known [...] Department Care Team Description 02/19/2025 Telephone [facility] [address] [place] [address] Katie Ahmadi, GUADALUPE 02/19/2025 Telephone [facility] [address] [place] [address] Katie Ahmadi, GUADALUPE 02/18/2025 Refill [facility] [address] [place] [address] Jennifer Posada MD Medication Refill from Last [...] 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 Not on file Not [...] Office Visit [facility] [address] [place] [address] [place] [address] Jennifer Posada MD 22 [facility], [address] [place] [address] [email or web address] Health Maintenance Due Date Last Done Comments VALPROIC ACID (DEPAKENE) LEVEL 1970 DEPRESSION SCREENING 1982 HEPATITIS C SCREENING 1988 HIV ONE-TIME SCREENING (18-65 YEARS) 1988 COLOGUARD 2015 COLONOSCOPY 2015 COLORECTAL CANCER SCREENING 2015 FIT TEST 2015 FOBT 2015 SIGMOIDOSCOPY 2015 VIRTUAL COLONOSCOPY 2015 PNEUMOCOCCAL VACCINES (50+ years) (1 of 1 - PCV) 2020 PAP SMEAR 07/29/2023 07/29/2020, 06/02/2016 INFLUENZA VACCINE (#1) 2025 , 05/22/2023, 06/07/2022, Additional history exists COVID-19 VACCINE ( - 2024- season) 2025 06/25/2021, 11/13/2020, 10/21/2020 MAMMOGRAM 05/13/2026 05/13/2024, 06/14, [...] (04/25/2024 8:02 AM EDT) HDL 87 mg/dL [facility] Comment: Interpretation <40 mg/dL: Low HDL cholesterol (major risk factor for CHD) Greater than or equal to 60 mg/dL: High HDL cholesterol ( negative risk factor for CHD) HDL - cholesterol is affected by a number of factors, e.g. smoking, excerise, hormones, sex and age. CHOLESTEROL 173 0 - 240 mg/dL [facility] TRIGLYCERIDES 61 30 - 160 mg/dL [facility] LDL 74 50 - 129 mg/dL [facility] Comment: LDL levels in terms of risk for coronary heart disease: <100 mg/dL: Optimal 100-129 mg/dL: Near or above optimal 130-159 mg/dL: Borderline high 160-189 mg/dL: High >190 mg/dL: Very High CARDIAC RISK RATIO 2.0(L) 3.3 - 4.4 C [facility] Blood 04/25/2024 8:02 AM EDT 04/25/2024 8:07 AM EDT Denise Williamson NP LAB BLOOD ORDERABLES Fi nal Result [address] [address] * Pap Smear (07/29/2020 12:00 AM EST) 07/29/2020 07/30/2020 8:2 7 AM EST Narrative SEE NARRATIVE - 08/03/2020 11:40 AM EST [address] [address] Fast Food Shift Supervisor: Kassandra Valerio MD CENTRAL SUPPLY SUPERVISOR Cytology Report FINAL DIAGNOSIS A. PAP SMEAR [...] 52, 56, 58, 59, 66, 68) by [employer] HR-HPV analysis. Clinical correlation is advised. This HPV test was performed at [facility], [address] [place] [address]. This test has been FDA approved for [facility] cervical cytology specimens. The accuracy and precision of this test for all other specimen sources has been verified in the Cytopathology Laboratory of the [facility] and has not been cleared or approved by the U.S. Food and Drug Administration. Clinical correlation is advised. CLINICAL HISTORY Date of Last Menstrual Period: Not Provided Menstrual History: Blanca-Menopausal Contraceptive History: BCPs Other Clinical Conditions: Screening Pap SPECIMEN SOURCE A: PAP SMEAR (SUREPATH) CE Patient Name: RAZA JARRELL : 1970 (Age: 50) Sex: F Institution: [facility] Location: [facility] Date of Collection: 07/29/2020 Date of Reported: 08/03/2020 11:40 Results to: Jennifer Posada MD Jennifer Posada MD CYTOLOGY ORDERABLES Final Result SEE NARRATIVE from Last 3 Months or Most Recently Relevant to Health Maintenance Insurance [facility] PPO EPO [facility] [place] [address] [place] [address] [address] [place] [address] [place] [address] [place] [address] PPO EPO [facility] [place] [address] [place] [address] PPO EPO [facility] PPO EPO Care Teams Vascular Technologist Sonographer Relationship Specialty Start Date End Date Nitesh Rosenberg DO [address] [place] [address] [email or web address] PCP - General 08/16/17 Leydi Carl MD [address] [place] [address] Historical LMR Provider 06/03/17 Nitesh Rosenberg DO [address] [place] [address] [email or web address] Insurance Assigned Provider 11/17/23 Additional Source Comments The information contained in this document represents components of the legal health record. It is not the complete legal health record.[facility]
--- OUTSIDE RECORDS SUMMARY | 2025-04-14 12:53 | XMS_ITS | Encounter Summary ---
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 Not on fi le documented as of this encounter Plan of Treatment Upcoming Encounters Date Type Department Care Team (Late st Contact Info) Description 05/26/2025 4:10 PM EDT Office Visit [facility] [address] [place] [address] [place] [address] Jennifer Posada MD 22 [facility], [address] [place] [address] [email or web address] documented as of this encounter Visit Diagnoses Not on filedocumented in this encounter Additional Health Concerns Infection Onset Date Last Indicated Resolved Time Influenza A 08/05/2023 08/05/2023 08/12/2023 1:22 AM EST CoV-Risk 08/05/2023 08/05/2023 08/16/2023 1:23 AM EST documented as of this encounter Care Teams Cigar Maker Relationship Specialty Start Date End Date Nitesh Rosenberg DO [address] [place] [address] [email or web address] PCP - General 08/16/17 Leydi Carl MD [address] [place] [address] Historical LMR Provider 06/03/17 Nitesh Rosenberg DO [address] [place] [address] [email or web address] Insurance Assigned Provider 11/17/23 documented as of this encounter Additional Source Comments The information contained in this document represents components of the legal health record. It is not the complete legal health record.[facility]
--- OUTSIDE RECORDS SUMMARY | 2025-04-14 12:53 | XMS_ITS | Encounter Summary ---
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 Not on fi le documented as of this encounter Plan of Treatment Upcoming Encounters Date Type Department Care Team (Late st Contact Info) Description 05/26/2025 4:10 PM EDT Office Visit [facility] [address] [place] [address] Jennifer Posada MD [address] [address] [email or web address] documented as of this encounter Visit Diagnoses Not on filedocumented in this encounter Care Teams Quantitative Manager Relationship Specialty Start Date End Date Nitesh Rosenberg DO [address] [place] [address] [email or web address] PCP - General 08/16/17 Leydi Carl MD [address] [place] [address] Historical LMR Provider 06/03/17 Nitesh Rosenberg DO [address] [place] [address] [place] [address] [email or web address] Insurance Assigned Provider 11/17/23 documented as of this encounter Additional Source Comments The information contained in this document represents components of the legal health record. It is not the complete legal health record.[facility]
--- OUTSIDE RECORDS SUMMARY | 2025-04-14 12:53 | XMS_ITS | Encounter Summary ---
Author Organization [facility] Address [address] [place] [address] Phone Care Team Providers Care Procedures Rn Name Role Phone Chet Nitesh Herman DO Unavailable Tati Lovell RELIEF PILOT Unavailable Imani Schulz CNM Unavailable Leydi Carl MD Unavailable [phone] Brijesh Gonzalez MD Unavailable [phone] Liz Chamberlain RELIEF PILOT Unavailable Nitesh Rosenberg DO Primary Care Provider [phone] Nitesh Rosenberg DO Unavailable Encounter Details Date Type Department Care Team (Latest Contact Info) Description 04/09/2018 Transcribe Orders [facility] [address] [place] [address] Cadence Orellana PA-C 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 Not on fi le documented as of this encounter Plan of Treatment Upcoming Encounters Date Type Department Care Team (Late st Contact Info) Description 05/26/2025 4:10 PM EDT Office Visit [facility] [address] [place] [address] Jennifer Posada MD 22 [facility], [address] [place] [address] [email or web address] documented as of this encounter Results * Gliadin deamidated antibody, IgG/IgA (04/09/2018 11:53 AM EDT) Gliadin Ab, IGA <10.0 <20.0 (Negative) U [facility] DPT OF LAB MED AND PAT+ GLIADIN AB IGG <10.0 <20.0 (Negative) U [facility] DPT OF LAB MED AND PAT+ Blood 04/09/2018 11:5 3 AM EDT 04/09/2018 12:12 PM EDT November Reyna [facility] LAB BLOOD ORDERABLES Final R esult Performing Organization Address City/[facility]/ZIP Co de Phone Number [facility] DPT OF LAB MED AND PAT+ [address] [place] [address] * Tissue transglutaminase IgA (04/09/2018 11:53 AM EDT) TTG IGA ANTIBODY <1.2 <4.0 (Negative) U/mL [facility] DPT OF LAB MED AND PAT+ Blood 04/09/2018 11:5 3 AM EDT 04/09/2018 12:12 PM EDT November Reyna [facility] LAB BLOOD ORDERABLES Final R esult Performing Organization Address City/[facility]/ZIP Co de Phone Number [facility] DPT OF LAB MED AND PAT+ [address] [place] [address] documented in this encounter Visit Diagnoses Diagnosis Stomach ache- Primary Dyspepsia and other specified disorders of function of stomach documented in this encounter Additional Health Concerns Infection Onset Date Last Indicated Resolved Time Influenza A 08/05/2023 08/05/2023 08/12/2023 1:22 AM EST CoV-Risk 08/05/2023 08/05/2023 08/16/2023 1:23 AM EST documented as of this encounter Care Teams Procedures Rn Relationship Specialty Start Date End Date Nitesh Rosenberg DO [address] [place] [address] PCP - General 08/16/17 Nitesh Rosenberg DO [address] [place] [address] Historical LMR Provider 06/03/17 08/20/21 Tati Lovell NP [address] [address] Historical LMR Provider 06/03/17 2 Imani Schulz CNM [address] [place] [address] Historical LMR Provider 06/03/17 2 Leydi Carl MD [address] [place] [address] Historical LMR Provider 06/03/17 Brijesh Gonzalez MD [address] [place] [address] Historical LMR Provider 06/03/17 2 Liz Chamberlain NP [address] [place] [address] Historical LMR Provider 06/03/17 2 Nitesh Rosenberg DO [address] [place] [address] [email or web address] Insurance Assigned Provider 11/17/23 documented as of this encounter Additional Source Comments The information contained in this document represents components of the legal health record. It is not the complete legal health record.[facility]
--- OUTSIDE RECORDS SUMMARY | 2025-04-14 12:55 | XMS_ITS | Encounter Summary ---
Author Organization [facility] Address [address] [address] Phone Care Team Providers Care Copywriter Name Role Phone Leydi Carl MD Unavailable [phone] BigNitesh lino DO Primary Care Provider [phone] Nitesh Rosenberg DO Unavailable Encounter Details Date Type Department Care Team (Late st Contact Info) Description 05/15/2024 Ancillary Orders [facility], [facility] [address] [place] [address] Jennifer Posada MD [address] [address] [email or web address] Abnormal mammogram (Primary Dx) Social History Tobacco [...] 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 file Not on fi le documented as of this encounter Plan of Treatment Upcoming Encounters Date Type Department Care Team (Late st Contact Info) Description 05/26/2025 4:10 PM EDT Office Visit [facility] [address] [place] [address] Jennifer Posada MD 22 [facility], [address] [place] [address] documented as of this encounter Results * [...] unspecified documented in this encounter Care Teams Copywriter Relationship Specialty Start Date End Date Nitesh Rosenberg DO [address] [place] [address] PCP - General 08/16/17 Leydi Carl MD [address] [place] [address] Historical LMR Provider 06/03/17 Nitesh Rosenberg DO [address] [place] [address] [email or web address] Insurance Assigned Provider 11/17/23 documented as of this encounter Additional Source Comments The information contained in this document represents components of the legal health record. It is not the complete legal health record.[facility]
--- OUTSIDE RECORDS SUMMARY | 2025-04-14 12:55 | XMS_ITS | Encounter Summary ---
Author Organization [facility] Address [address] [place] [address] Phone Care Team Providers Care Adhesive Sprayer Name Role Phone Nitesh Rosenberg DO Unavailable Tati Lovell PAVING AND SURFACING LABOURER Unavailable Imani Schulz CNM Unavailable Leydi Carl MD Unavailable [phone] Brijesh Gonzalez MD Unavailable [phone] Liz Chamberlain PAVING AND SURFACING LABOURER Unavailable Nitesh Rosenberg DO Primary Care Provider Nitesh Rosenberg DO Unavailable Encounter Details Date Type Department Care Team (Late st Contact Info) Description 07/29/2020 Procedure Pass [facility], [address] [address] Social History Tobacco Use Types Packs/Day Years [...] 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 Not on file Not on fi le documented as of this encounter Functional Status documented as of this encounter Plan of Treatment Upcoming Encounters Date Type Department Care Team (Late st Contact Info) Description 05/26/2025 4:10 PM EDT Office Visit [facility] [address] [place] [address] [place] [address] Jennifer Posada MD [address] [address] documented as of this encounter Visit Diagnoses Not on filedocumented in this encounter Additional Health Concerns Infection Onset Date Last Indicated Resolved Time Influenza A 08/05/2023 08/05/2023 08/12/2023 1:22 AM EST CoV-Risk 08/05/2023 08/05/2023 08/16/2023 1:23 AM EST documented as of this encounter Care Teams Adhesive Sprayer Relationship Specialty Start Date End Date Nitesh Rosenberg DO [address] [place] [address] PCP - General 08/16/17 Nitesh Rosenberg DO [address] [place] [address] Historical LMR Provider 06/03/17 08/20/21 Tati Lovell NP [address] [address] Historical LMR Provider 06/03/17 2 Imani Schulz CNM [address] [place] [address] Historical LMR Provider 06/03/17 2 Leydi Carl MD [address] [place] [address] Historical LMR Provider 06/03/17 Brijesh Gonzalez MD [address] [place] [address] Historical LMR Provider 06/03/1708/20/2 2 Liz Chamberlain NP [address] [place] [address] Historical LMR Provider 06/03/17 2 Nitesh Rosenberg DO [address] [place] [address] Insurance Assigned Provider 11/17/23 documented as of this encounter Additional Source Comments The information contained in this document represents components of the legal health record. It is not the complete legal health record.[facility]
--- OUTSIDE RECORDS SUMMARY | 2025-04-14 12:55 | XMS_ITS | Encounter Summary ---
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 file Not on fi le documented as of this encounter Plan of Treatment Upcoming Encounters Date Type Department Care Team (Late st Contact Info) Description 05/26/2025 4:10 PM EDT Office Visit [facility] [address] [place] [address] Jennifer Posada MD [address] [address] [email or web address] documented as of this encounter Visit Diagnoses Not on filedocumented in this encounter Care Teams Fisher Eel Spear Relationship Specialty Start Date End Date Nitesh Rosenberg DO [address] [place] [address] [email or web address] PCP - General 08/16/17 Leydi Carl MD [address] [place] [address] Historical LMR Provider 06/03/17 Nitesh Rosenberg DO [address] [place] [address] [place] [address] [email or web address] Insurance Assigned Provider 11/17/23 documented as of this encounter Additional Source Comments The information contained in this document represents components of the legal health record. It is not the complete legal health record.[facility]
--- OUTSIDE RECORDS SUMMARY | 2025-04-14 12:55 | XMS_ITS | Encounter Summary ---
Author Organization [facility] Address [address] [place] [address] Phone Care Team Providers Care Mortgage Loan Specialist Name Role Phone Chet Nitesh Herman DO Unavailable Tati Lovell TIMBER MANAGEMENT ASSISTANT Unavailable [phone] Imani Schulz CNM Unavailable Leydi Carl MD Unavailable [phone] Brijesh Gonzalez MD Unavailable [phone] Liz Chamberlain TIMBER MANAGEMENT ASSISTANT Unavailable Nitesh Rosenberg DO Primary Care Provider Nitesh Rosenberg DO Unavailable Encounter Details Date Type Department Care Team (Late st Contact Info) Description 06/16/2020 Ancillary Orders Virtual Department [address] [place] [address] Keira Alonso PA [address] [place] [address] [place] [address] Low back pain, unspecified back pain laterality, [...] 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, [address] [place] [address] [email or web address] documented as of this encounter Results * [...] documented as of this encounter Care Teams Mortgage Loan Specialist Relationship Specialty Start Date End Date Nitesh Rosenberg DO [address] [place] [address] PCP - General 08/16/17 Nitesh Rosenberg DO [address] [place] [address] Historical LMR Provider 06/03/17 08/20/21 Tati Lovell NP [address] [address] Historical LMR Provider 06/03/17 2 Imani Schulz CNM 30 [place] [address] Historical LMR Provider 06/03/17 2 Leydi Carl MD [address] [place] [address] Historical LMR Provider 06/03/17 Brijesh Gonzalez MD [address] [place] [address] Historical LMR Provider 06/03/17 2 Liz Chamberlain NP [address] [place] [address] Historical LMR Provider 06/03/17 2 Nitesh Rosenberg DO [address] [place] [address] [email or web address] Insurance Assigned Provider 11/17/23 documented as of this encounter Additional Source Comments The information contained in this document represents components of the legal health record. It is not the complete legal health record.[facility]
--- OUTSIDE RECORDS SUMMARY | 2025-04-14 12:55 | XMS_ITS | Encounter Summary ---
Author Organization [facility] Address [address] [place] [address] Phone Care Team Providers Care Representative Name Role Phone Leydi Carl MD Unavailable [phone] Nitesh Rosenberg DO Primary Care Provider [phone] Nitesh Rosenberg DO Unavailable Encounter Details Date Type Department Care Team (Late st Contact Info) Description 05/07/2024 Transcribe Orders [facility] [address] [place] [address] Nitesh Rosenberg DO 179 [facility] [address] [email or web address] Social History Tobacco Use Types Packs/Day Years [...] 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 Not on fi le documented as of this encounter Plan of Treatment Upcoming Encounters Date Type Department Care Team (Late st Contact Info) Description 05/26/2025 4:10 PM EDT Office Visit [facility] [address] [place] [address] Jennifer Posada MD [address] [address] documented as of this encounter Visit Diagnoses Not on filedocumented in this encounter Care Teams Representative Relationship Specialty Start Date End Date Nitesh Rosenberg DO [address] [place] [address] [email or web address] PCP - General 08/16/17 Leydi Carl MD [address] [place] [address] Historical LMR Provider 06/03/17 Nitesh Rosenberg DO [address] [place] [address] [place] [address] Insurance Assigned Provider 11/17/23 documented as of this encounter Additional Source Comments The information contained in this document represents components of the legal health record. It is not the complete legal health record.[facility]
--- OUTSIDE RECORDS SUMMARY | 2025-04-14 12:55 | XMS_ITS | Encounter Summary ---
Author Organization [facility] Address [address] [place] [address] Phone Care Team Providers Care Wax Ball Molder Name Role Phone Chet Nitesh Herman DO Unavailable Tati Lovell DYNAMICS AX DEVELOPER Unavailable Imani Schulz CNM Unavailable Leydi Carl MD Unavailable [phone] Brijesh Gonzalez MD Unavailable [phone] Liz Chamberlain DYNAMICS AX DEVELOPER Unavailable Nitesh Rosenberg DO Primary Care Provider [phone] Nitesh Rosenberg DO Unavailable Encounter Details Date Type Department Care Team (Latest Contact Info) Description 06/17/2019 Transcribe Orders [facility] [address] [place] [address] Cadence Orellana PA-C 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 Not on fi le documented as of this encounter Plan of Treatment Upcoming Encounters Date Type Department Care Team (Late st Contact Info) Description 05/26/2025 4:10 PM EDT Office Visit [facility] [address] [place] [address] Jennifer Posada MD 22 [facility], [address] [place] [address] [email or web address] documented as of this encounter Results * 25-OH vitamin D (06/17/2019 7:38 AM EST) 25 OH VIT D (TOTAL) 42 30 - 60 ng/mL [facility] Blood 06/17/2019 7:38 AM EST 06/17/2019 8:08 AM EST November Reyna [facility] LAB BLOOD ORDERABLES Final R esult [facility] 30 [place] [address] * (ABNORMAL) CBC and differential (06/17/2019 7:38 AM EST) WBC 7.90 3.40 - 11.20 K/uL [facility] RBC 4.20 3.80 - 4.80 M/uL [facility] HGB 13.6 12.0 - 15.0 g/dL [facility] HCT 40.2 36.0 - 46.0 % [facility] PLT 273 130 - 400 K/uL [facility] MCV 95.7 79.0 - 98.0 fL [facility] MCH 32.4 27.0 - 34.8 pg [facility] MCHC 33.8 31.5 - 36.0 g/dL [facility] RDW 12.1 10.8 - 14.6 % [facility] MPV 9.3(L) 9.4 - 12.4 fl [facility] NRBC 0.00 0.00 /100 WBCs [facility] ABSOLUTE NRBC 0.00 0.00 K/uL [facility] DIFF METHOD Auto [facility] NEUTS 68.7 45.30 - 77.70 % [facility] LYMPHS 20.5 12.30 - 39.70 % [facility] MONOS 7.0 4.10 - 12.80 % [facility] EOS 2.2 0 - 7.2 % [facility] BASOS 1.3 0 - 2.80 % [facility] Granulocytes, immature (%) 0.3 0.0 - 0.9 % [facility] ABSOLUTE NEUTS 5.44 1.40 - 7.70 K/uL [facility] ABSOLUTE LYMPHS 1.62 0.60 - 3.20 K/uL [facility] ABSOLUTE MONOS 0.55 0.11 - 0.59 K/uL [facility] ABSOLUTE EOS 0.17 0.01 - 0.50 K/uL [facility] ABSOLUTE BASOS 0.10(H) 0.00 - 0.08 K/uL [facility] Granulocytes, immature 0.02 0.00 - 0.05 K/uL [facility] Blood 06/17/2019 7:38 AM EST 06/17/2019 8:08 AM EST November Reyna [facility] LAB BLOOD ORDERABLES Final R esult Performing Organization Address City/State/[facility] Co de Phone Number [address] [address] * (ABNORMAL) Lipid panel (06/17/2019 7:38 AM EST) HDL 68 mg/dL [facility] Comment: Interpretation <40 mg/dL: Low HDL cholesterol (major risk factor for CHD) Greater than or equal to 60 mg/dL: High HDL cholesterol ( negative risk factor for CHD) HDL - cholesterol is affected by a number of factors, e.g. smoking, excerise, hormones, sex and age. CHOLESTEROL 148 0 - 240 mg/dL [facility] TRIGLYCERIDES 105 30 - 160 mg/dL [facility] LDL 59 50 - 129 mg/dL [facility] Comment: LDL levels in terms of risk for coronary heart disease: <100 mg/dL: Optimal 100-129 mg/dL: Near or above optimal 130-159 mg/dL: Borderline high 160-189 mg/dL: High >190 mg/dL: Very High CARDIAC RISK RATIO 2.2(L) 3.3 - 4.4 C [facility] Blood 06/17/2019 7:38 AM EST 06/17/2019 8:08 AM EST November Reyna [facility] LAB BLOOD ORDERABLES Final R esult [facility] [address] [place] [address] * Comprehensive metabolic panel (06/17/2019 7:38 AM EST) SODIUM 141 133 - 146 mmol/L [facility] POTASSIUM 4.2 3.3 - 5.1 mmol/L [facility] CHLORIDE 104 96 - 108 mmol/L [facility] CO2 26 21 - 35 mmol/L [facility] BUN 10 6 - 19 mg/dL [facility] CREATININE 0.60 0.5 - 1.5 mg/dL [facility] GLUCOSE 91 70 - 99 mg/dL [facility] ALBUMIN 4.1 3.9 - 4.8 g/dL [facility] TOTAL PROTEIN 6.7 6.5 - 8.0 g/dL [facility] CALCIUM 9.4 8.4 - 10.3 mg/dL [facility] ALKALINE PHOSPHATASE 46 39 - 117 U/L [facility] TOTAL BILIRUBIN 0.5 0.0 - 1.2 mg/dL [facility] AST 21 0 - 37 U/L [facility] ALT 12 0 - 40 U/L [facility] GLOBULIN 2.6 1 - 4.8 g/dL [facility] EGFR 107 >59 mL/min/1.7 3m2 [facility] Comment:If patient is black, multiply result by 1.159. Estimated glomerular filtration rate calculated using the CKD-EPI equation. ANION GAP 15 10 - 20 mmol/L [facility] Blood 06/17/2019 7:38 AM EST 06/17/2019 8:08 AM EST November Reyna [facility] LAB BLOOD ORDERABLES Final R esult [address] [address] documented in this encounter Visit Diagnoses Diagnosis Routine general medical examination at a health care facility- Primary Avitaminosis D Unspecified vitamin D deficiency documented in this encounter Additional Health Concerns Infection Onset Date Last Indicated Resolved Time Influenza A 08/05/2023 08/05/2023 08/12/2023 1:2 2 AM EST CoV-Risk 08/05/2023 08/05/2023 08/16/2023 1:23 AM EST documented as of this encounter Care Teams Wax Ball Molder Relationship Specialty Start Date End Date Nitesh Rosenberg DO [address] [place] [address] PCP - General 08/16/17 Nitesh Rosenberg DO [address] [place] [address] Historical LMR Provider 06/03/17 08/20/21 Tati Lovell NP [address] [place] [address] Historical LMR Provider 06/03/17 2 Imani Schulz CNM [address] [place] [address] Historical LMR Provider 06/03/17 2 Leydi Carl MD [address] [place] [address] Historical LMR Provider 06/03/17 Brijesh Gonzalez MD [address] [place] [address] Historical LMR Provider 06/03/17 2 Liz Chamberlain NP [address] [place] [address] Historical LMR Provider 06/03/17 2 Nitesh Rosenberg DO [address] [place] [address] [email or web address] Insurance Assigned Provider 11/17/23 documented as of this encounter Additional Source Comments The information contained in this document represents components of the legal health record. It is not the complete legal health record.[facility]
--- OUTSIDE RECORDS SUMMARY | 2025-04-14 12:55 | XMS_ITS | Encounter Summary ---
Author Organization [facility] Address [address] [place] [address] Phone Care Team Providers Care Core Blower Operator Name Role Phone Chet Nitesh Herman DO Unavailable Tati Lovell GENERAL EDUCATION INSTRUCTOR Unavailable Imani Schulz CNM Unavailable Leydi Carl MD Unavailable [phone] Brijesh Gonzalez MD Unavailable [phone] Liz Chamberlain GENERAL EDUCATION INSTRUCTOR Unavailable Nitesh Rosenberg DO Primary Care Provider Nitesh Rosenberg DO Unavailable Encounter Details Date Type Department Care Team (Latest Contact Info) Description 06/16/2020 Transcribe Orders Virtual Department [address] [place] [address] Keira Alonso PA [address] [place] [address] [place] [address] Thoracic spine pain (Primary Dx) Social History [...] 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 Not on fi le documented as of this encounter Plan of Treatment Upcoming Encounters Date Type Department Care Team (Late st Contact Info) Description 05/26/2025 4:10 PM EDT Office Visit [facility] [address] [place] [address] Jennifer Posada MD 22 [facility], [address] [place] [address] [email or web address] documented as of this encounter Results * [...] documented as of this encounter Care Teams Core Blower Operator Relationship Specialty Start Date End Date Nitesh Rosenberg DO [address] [place] [address] PCP - General 08/16/17 Nitesh Rosenberg DO [address] [place] [address] Historical LMR Provider 06/03/17 08/20/21 Tati Lovell NP [address] [address] Historical LMR Provider 06/03/17 2 Imani Schulz CNM 30 [place] [address] Historical LMR Provider 06/03/17 2 Leydi Carl MD [address] [place] [address] Historical LMR Provider 06/03/17 Brijesh Gonzalez MD 61 [place] [address] Historical LMR Provider 06/03/17 2 Liz Chamberlain NP [address] [place] [address] Historical LMR Provider 06/03/17 2 Nitesh Rosenberg DO [address] [place] [address] [email or web address] Insurance Assigned Provider 11/17/23 documented as of this encounter Additional Source Comments The information contained in this document represents components of the legal health record. It is not the complete legal health record.[facility]
[2025-04-17] VITALS (8 sets, daily range): BP systolic 96–114; BP diastolic 62–79; PULSE 67–96; RESP 14–18; TEMP 36.7–36.9; O2SAT 99; BMI 18.9
--- NOTE | 2025-04-17 06:43 | HO.ANESPROP2 ---
[facility]LY [facility] Active Problems Active Problems: All Active Problems 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 (Acute) Bipolar 1 disorder, depressed, severe (Acute) Cognitive and behavioral changes (Acute) Other anxiety states (Acute) Bipolar affective, mixed, severe (Acute) Akathisia (Acute) Panic attacks (Acute) Anxiety (Acute) Past Medical History Medical History Menopause Routine medical exam Bipolar affective, mixed, severe Akathisia Panic attacks Anxiety No known health problems Family History Family history of problems with anesthesia: No Surgical History History of Problems with Anesthesia: No Social History Social History Household Members: Spouse Household Members Other:: Housing: House Are you a primary home day care provider to a significant other at home: No Do you presently have visiting nurse or other home services: No Alcohol intake: current Alcohol intake frequency: does not drink Alcohol type: wine Patient Tobacco Use Status: Never used Tobacco e-Cigarette/Vaping Use: Never Used Second Hand Smoke Exposure: No Advance Directives: No Advance Directives Information Provided: Yes service: No Sexual orientation: Straight/Heterosexual Meds Allergies Allergy/AdvReac Type Severity Reaction Status Date / Time No Known Allergies Allergy Verified 03/11/24 14:49 Active Medications: Current Medications Lactated Ringer's (Lr) 1,000 mls @ 50 mls/hr IVCONT .Q20H GREYSON Naloxone HCl (Naloxone Hcl 0.4 Mg/Ml Vial) 0.04 mg IVPUSH Q5M PRN PRN Reason: Excessive sedation or RR < 8 Home Medications ?Medication ?Instructions ?Recorded ?Confirmed ?Last Taken ?Type estradiol 0.0375 mg/24 hr 1 patch topical 2XW 03/11/24 03/11/24 03/11/24 History semiweekly transdermal patch progesterone micronized 100 mg 100 mg PO DAILY 03/11/24 03/11/24 03/11/24 History capsule gabapentin 300 mg capsule 300 mg PO 3XD 10/23/24 10/23/24 Unknown History olanzapine 2.5 mg tablet 2.5 mg PO BEDTIME 10/23/24 10/23/24 Unknown History Exam Height,Weight and Vital Signs: Height 5 ft 6 in Weight 53.07 kg Last Vital Signs Temp 98.0 F 04/17/25 06:24 Pulse 80 04/17/25 06:24 Resp 18 04/17/25 06:24 BP 96/65 04/17/25 06:24 Pulse Ox 99 04/17/25 06:24 O2 Del Method Room Air 04/17/25 06:24 Airway Mallampati Class: II TM Dist: >3cm Neck ROM: Full Heart: rrr Lungs: cta Assessment and Plan Assessment Anesthesia Assessment: Anesthesia Plan Discussed and Chart Reviewed Final Anesthetic Review Family History of Problems with Anesthesia: No History of Problems with Anesthesia: No NPO: Yes ASA Class: III Final Preanesthetic Review: No Changes in Pt Med Stat, Meds/Allgs Chart Reviewed and Consent Obtained/Reviewed Patient Risk: Intermediate Procedure Risk: Intermediate Anesthetic Plan Anesthetic Plan: GA Disposition: Standard PACU
--- NOTE | 2025-04-17 06:55 | MHC.SHP ---
Pre-Procedural Eval Section A - 24 Hr Update-Section A only Date of Service: 04/17/25 Section B - Complete if H&P > 30 days Chief Complaint: depression Allergies: Allergies Allergy/AdvReac Type Severity Reaction Status Date / Time No Known Allergies Allergy Verified 03/11/24 14:49 Review of Systems Sugical H&P ROS: Negative: Constitution and Neurological Exam Surgical H&P Exam: Normal: HEENT, Normal: Extremities and Normal: Neurological Plan Diagnosis/Plan: Unchanged I have reviewed the history and physical and performed a pertinent physical examination on my patient. No changes have occurred unless specified. Time Spent With Patient Time: Total time managing care of this patient today __30__ minutes.
--- NOTE | 2025-04-17 07:39 | HO.ECTPROC ---
ECT Procedure Note Diagnosis/Treatment Date of Service: 04/17/25 Diagnosis: Major Depressive Disorder Previous ECT Date: 04/14/25 Current Treatment Number: 5 Treatment: Series Time: Total time managing care of this patient today __30__ minutes. ECT Settings Device: THYMATRON DGx Electrode Placement: Right Unilateral Program/Pulse Width: 0.25 Energy Percent: 100 Seizure Duration By EEG (in seconds): 41 Medications Administration General Anesthetic: Etomidate (14) Muscle Relaxant: Succinylcholine (80) Ancillary Medications Miscillaneous Medications: Midazolam (2) Airway Management Airway Management: Bag Mask Ventilation Treatment Recommendations Electrode Placement: Right Unilateral Program/Pulse Width: 0.25 Energy Percent: 100 Notes: per stemp recommendation, decrease sux from 80 to 70 Pt Tolerated Procedure w/o Issue: Yes
== END 2025-04-17 09:02 | disposition home or self-care (01) ==
PROVIDERS: PCP Internal Medicine; Visit Provider Psychiatry & Neurology Psychiatry
PROC: (CPT 90870; principal; 2025-04-17 08:00)
DX: F33.2 Major depressive disorder, recurrent severe without psychotic features (principal); F41.9 Anxiety disorder, unspecified; F41.0 Panic disorder [episodic paroxysmal anxiety]; Z79.899 Other long term (current) drug therapy
CPT/HCPCS: 90870; J0330; J2250

== ENCOUNTER → 2025-04-17 05:56 | Outpatient (BNV) | payer BC, SELFPAY | PROVIDERS: PCP Internal Medicine; Visit Provider Psychiatry & Neurology Psychiatry | DX: F33.2 Major depressive disorder, recurrent severe without psychotic features (principal) | CPT/HCPCS: 90870 ==

== ENCOUNTER 2025-04-22 05:58 | Day surgery (SDC) | payer BC, SELFPAY ==
--- OUTSIDE RECORDS SUMMARY | 2025-04-20 16:54 | XMS_ITS | Encounter Summary ---
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 file Not on fi le documented as of this encounter Plan of Treatment Upcoming Encounters Date Type Department Care Team (Late st Contact Info) Description 05/26/2025 4:10 PM EDT Office Visit [facility] [address] [place] [address] Jennifer Posada MD [address] [address] [email or web address] documented as of this encounter Visit Diagnoses Not on filedocumented in this encounter Care Teams Heater Helper Forge Relationship Specialty Start Date End Date Nitesh Rosenberg DO [address] [place] [address] [email or web address] PCP - General 08/16/17 Leydi Carl MD [address] [place] [address] Historical LMR Provider 06/03/17 Nitesh Rosenberg DO [address] [place] [address] [place] [address] [email or web address] Insurance Assigned Provider 11/17/23 documented as of this encounter Additional Source Comments The information contained in this document represents components of the legal health record. It is not the complete legal health record.[facility]
--- OUTSIDE RECORDS SUMMARY | 2025-04-20 16:54 | XMS_ITS | Encounter Summary ---
Author Organization [facility] Address [address] [place] [address] Phone Care Team Providers Care Print Finisher Name Role Phone Chet Nitesh Herman DO Unavailable Tati Lovell BEE KEEPER Unavailable Imani Schulz CNM Unavailable Leydi Carl MD Unavailable [phone] Brijesh Gonzalez MD Unavailable [phone] Liz Chamberlain BEE KEEPER Unavailable Nitesh Rosenberg DO Primary Care Provider Nitesh Rosenberg DO Unavailable Encounter Details Date Type Department Care Team (Late st Contact Info) Description 06/16/2020 Ancillary Orders Virtual Department [address] [place] [address] Keira Alonso PA [address] [place] [address] [place] [address] Low back pain, unspecified back pain laterality, [...] 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 Not on file Not on fi le documented as of this encounter Plan of Treatment Upcoming Encounters Date Type Department Care Team (Late st Contact Info) Description 05/26/2025 4:10 PM EDT Office Visit [facility] [address] [place] [address] Jennifer Posada MD 22 [facility], [address] [place] [address] [email or web address] documented as of this encounter Results * [...] documented as of this encounter Care Teams Print Finisher Relationship Specialty Start Date End Date Nitesh Rosenberg DO [address] [place] [address] PCP - General 08/16/17 Nitesh Rosenberg DO [address] [place] [address] Historical LMR Provider 06/03/17 08/20/21 Tati Lovell NP [address] [address] Historical LMR Provider 06/03/17 2 Imani Schulz CNM [address] [place] [address] Historical LMR Provider 06/03/17 2 Leydi Carl MD [address] [place] [address] Historical LMR Provider 06/03/17 Brijesh Gonzalez MD [address] [place] [address] Historical LMR Provider 06/03/17 2 Liz Chamberlain NP [address] [place] [address] Historical LMR Provider 06/03/17 2 Nitesh Rosenberg DO [address] [place] [address] [email or web address] Insurance Assigned Provider 11/17/23 documented as of this encounter Additional Source Comments The information contained in this document represents components of the legal health record. It is not the complete legal health record.[facility]
--- OUTSIDE RECORDS SUMMARY | 2025-04-20 16:54 | XMS_ITS | Clinical Summary ---
Author Organization [facility] Address [address] [place] [address] Phone Care Team Providers Care Cook Fish And Chips Name Role Phone Leydi Carl MD Unavailable [phone] [place], Nitesh Herman DO Primary Care Provider [phone] Nitesh Rosenberg DO Unavailable Allergies No known [...] Department Care Team Description 02/19/2025 Telephone [facility] [address] [place] [address] Katie Ahmadi, [email or web address] 02/19/2025 Telephone [facility] [address] [place] [address] Katie Ahmadi, [email or web address] 02/18/2025 Refill [facility] [address] [place] [address] Jennifer Posada MD Medication Refill from Last [...] 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 smoking, excerise, hormones, sex and age. CHOLESTEROL 173 0 - 240 mg/dL [facility] TRIGLYCERIDES 61 30 - 160 mg/dL [facility] LDL 74 50 - 129 mg/dL [facility] Comment: LDL levels in terms of risk for coronary heart disease: <100 mg/dL: Optimal 100-129 mg/dL: Near or above optimal 130-159 mg/dL: Borderline high 160-189 mg/dL: High >190 mg/dL: Very High CARDIAC RISK RATIO 2.0(L) 3.3 - 4.4 C [facility] Blood 04/25/2024 8:02 AM EDT 04/25/2024 8:07 AM EDT Denise Williamson NP LAB BLOOD ORDERABLES Fi nal Result [address] [address] * Pap Smear (07/29/2020 12:00 AM EST) 07/29/2020 07/30/2020 8:2 7 AM EST Narrative SEE NARRATIVE - 08/03/2020 11:40 AM EST [address] [address] Lens Grinding Machine Operator: Kassandra Valerio MD ENVIRONMENTAL EMERGENCIES PLANNER Cytology Report FINAL DIAGNOSIS A. PAP SMEAR [...] 52, 56, 58, 59, 66, 68) by [employer] On[employer] HR-HPV analysis. Clinical correlation is advised. This HPV test was performed at [facility], [address] [place] [address]. This test has been FDA approved for [facility] cervical cytology specimens. The accuracy and precision of this test for all other specimen sources has been verified in the Cytopathology Laboratory of the [facility] and has not been cleared or approved by the U.S. Food and Drug Administration. Clinical correlation is advised. CLINICAL HISTORY Date of Last Menstrual Period: Not Provided Menstrual History: Blanca-Menopausal Contraceptive History: BCPs Other Clinical Conditions: Screening Pap SPECIMEN SOURCE A: PAP SMEAR (SUREPATH) CE Patient Name: RAZA JARRELL : 1970 (Age: 50) Sex: F Institution: [facility] Location: [facility] Date of Collection: 07/29/2020 Date of Reported: 08/03/2020 11:40 Results to: Jennifer Posada MD Jennifer Posada MD CYTOLOGY ORDERABLES Final Result SEE NARRATIVE from Last 3 Months or Most Recently Relevant to Health Maintenance Insurance [facility] PPO EPO [facility] [place] [address] [place] [address] [address] [place] [address] [place] [place] [address] PPO EPO [facility] [place] [address] [place] [address] PPO EPO [facility] PPO EPO Care Teams Cook Fish And Chips Relationship Specialty Start Date End Date Nitesh Rosenberg DO [address] [place] [address] [email or web address] PCP - General 08/16/17 Leydi Carl MD [address] [place] [address] Historical LMR Provider 06/03/17 Nitesh Rosenberg DO [address] [place] [address] [email or web address] Insurance Assigned Provider 11/17/23 Additional Source Comments The information contained in this document represents components of the legal health record. It is not the complete legal health record.[facility]
--- OUTSIDE RECORDS SUMMARY | 2025-04-20 16:54 | XMS_ITS | Encounter Summary ---
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 documented as of this encounter Visit Diagnoses Not on filedocumented in this encounter Additional Health Concerns Infection Onset Date Last Indicated Resolved Time Influenza A 08/05/2023 08/05/2023 08/12/2023 1:22 AM EST CoV-Risk 08/05/2023 08/05/2023 08/16/2023 1:23 AM EST documented as of this encounter Care Teams Powerhouse Laborer Relationship Specialty Start Date End Date Nitesh Rosenberg DO [address] [place] [address] [email or web address] PCP - General 08/16/17 Leydi Carl MD [address] [place] [address] Historical LMR Provider 06/03/17 Nitesh Rosenberg DO [address] [place] [address] [email or web address] Insurance Assigned Provider 11/17/23 documented as of this encounter Additional Source Comments The information contained in this document represents components of the legal health record. It is not the complete legal health record.[facility]
--- OUTSIDE RECORDS SUMMARY | 2025-04-20 16:54 | XMS_ITS | Encounter Summary ---
Author Organization [facility] Address [address] [place] [address] Phone Care Team Providers Care Test Analyst Name Role Phone Chet Nitesh Herman DO Unavailable Tati Lovell OFFICE MACHINE TECHNICIAN Unavailable Imani Schulz CNM Unavailable eLydi Carl MD Unavailable [phone] Brijesh Gonzalez MD Unavailable [phone] Liz Chamberlain OFFICE MACHINE TECHNICIAN Unavailable Nitesh Rosenberg DO Primary Care Provider [phone] Nitesh Rosenberg DO Unavailable Encounter Details Date Type Department Care Team (Latest Contact Info) Description 04/09/2018 Transcribe Orders [facility] [address] [place] [address] Cadence Orellana PA-C 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0 <20.0 (Negative) U [facility] DPT OF LAB MED AND PAT+ Blood 04/09/2018 11:5 3 AM EDT 04/09/2018 12:12 PM EDT November Reyna [facility] BLOOD ORDERABLES Final R esult Performing Organization Address City/[facility]/ZIP Co de Phone Number [facility] OF LAB MED AND PAT+ [address] [place] [address] * Tissue transglutaminase IgA (04/09/2018 11:53 AM EDT) TTG IGA ANTIBODY <1.2 <4.0 (Negative) U/mL [facility] DPT OF LAB MED AND PAT+ Blood 04/09/2018 11:5 3 AM EDT 04/09/2018 12:12 PM EDT November Reyna [facility] BLOOD ORDERABLES Final R esult Performing Organization Address City/[facility]/ZIP Co de Phone Number [facility] DPT OF LAB MED AND PAT+ [address] [place] [address] documented in this encounter Visit Diagnoses Diagnosis Stomach ache- Primary Dyspepsia and other specified disorders of function of stomach documented in this encounter Additional Health Concerns Infection Onset Date Last Indicated Resolved Time Influenza A 08/05/2023 08/05/2023 08/12/2023 1:22 AM EST CoV-Risk 08/05/2023 08/05/2023 08/16/2023 1:23 AM EST documented as of this encounter Care Teams Test Analyst Relationship Specialty Start Date End Date Nitesh Rosenberg DO [address] [place] [address] PCP - General 08/16/17 Nitesh Rosenberg DO [address] [place] [address] Historical LMR Provider 06/03/17 08/20/21 Tati Lovell NP [address] [address] Historical LMR Provider 06/03/17 2 Imani Schulz CNM 30 [place] [address] Historical LMR Provider 06/03/17 2 Leydi Carl MD [address] [place] [address] Historical LMR Provider 06/03/17 Brijesh Gonzalez MD 61 [place] [address] Historical LMR Provider 06/03/17 2 Liz Chamberlain NP [address] [place] [address] Historical LMR Provider 06/03/17 2 Nitesh Rosenberg DO [address] [place] [address] [email or web address] Insurance Assigned Provider 11/17/23 documented as of this encounter Additional Source Comments The information contained in this document represents components of the legal health record. It is not the complete legal health record.[facility]
--- OUTSIDE RECORDS SUMMARY | 2025-04-20 16:54 | XMS_ITS | Encounter Summary ---
Author Organization [facility] Address [address] [place] [address] Phone Care Team Providers Care Oil Gauger Name Role Phone Chet Nitesh Herman DO Unavailable Tati Lovell LAND SURVEYOR Unavailable [phone] Imani Schulz CNM Unavailable Leydi Carl MD Unavailable [phone] Brijesh Gonzalez MD Unavailable [phone] Liz Chamberlain LAND SURVEYOR Unavailable Nitesh Rosenberg DO Primary Care Provider [phone] Nitesh Rosenberg DO Unavailable Encounter Details Date Type Department Care Team (Latest Contact Info) Description 06/17/2019 Transcribe Orders [facility] 12 [place] [address] Cadence Orellana PA-C 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 Not on fi le documented as of this encounter Plan of Treatment Upcoming Encounters Date Type Department Care Team (Late st Contact Info) Description 05/26/2025 4:10 PM EDT Office Visit [facility] [address] [place] [address] Jennifer Posada MD 22 [facility], [address] [place] [address] [email or web address] documented as of this encounter Results * 25-OH vitamin D (06/17/2019 7:38 AM EST) 25 OH VIT D (TOTAL) 42 30 - 60 ng/mL [facility] Blood 06/17/2019 7:38 AM EST 06/17/2019 8:08 AM EST November Reyna [facility] BLOOD ORDERABLES Final R esult [facility] [address] [place] [address] * (ABNORMAL) CBC and differential (06/17/2019 7:38 AM EST) WBC 7.90 3.40 - 11.20 K/uL [facility] RBC 4.20 3.80 - 4.80 M/uL [facility] HGB 13.6 12.0 - 15.0 g/dL [facility] HCT 40.2 36.0 - 46.0 % [facility] PLT 273 130 - 400 K/uL [facility] MCV 95.7 79.0 - 98.0 fL [facility] MCH 32.4 27.0 - 34.8 pg [facility] MCHC 33.8 31.5 - 36.0 g/dL [facility] RDW 12.1 10.8 - 14.6 % [facility] MPV 9.3(L) 9.4 - 12.4 fl [facility] NRBC 0.00 0.00 /100 WBCs [facility] ABSOLUTE NRBC 0.00 0.00 K/uL [facility] DIFF METHOD Auto [facility] NEUTS 68.7 45.30 - 77.70 % [facility] LYMPHS 20.5 12.30 - 39.70 % [facility] MONOS 7.0 4.10 - 12.80 % [facility] EOS 2.2 0 - 7.2 % [facility] BASOS 1.3 0 - 2.80 % [facility] Granulocytes, immature (%) 0.3 0.0 - 0.9 % [facility] ABSOLUTE NEUTS 5.44 1.40 - 7.70 K/uL [facility] ABSOLUTE LYMPHS 1.62 0.60 - 3.20 K/uL [facility] ABSOLUTE MONOS 0.55 0.11 - 0.59 K/uL [facility] ABSOLUTE EOS 0.17 0.01 - 0.50 K/uL [facility] ABSOLUTE BASOS 0.10(H) 0.00 - 0.08 K/uL [facility] Granulocytes, immature 0.02 0.00 - 0.05 K/uL [facility] Blood 06/17/2019 7:38 AM EST 06/17/2019 8:08 AM EST November Reyna [facility] BLOOD ORDERABLES Final R esult Performing Organization Address City/State/[facility] Co de Phone Number [address] [address] * (ABNORMAL) Lipid panel (06/17/2019 7:38 AM EST) HDL 68 mg/dL [facility] Comment: Interpretation <40 mg/dL: Low HDL cholesterol (major risk factor for CHD) Greater than or equal to 60 mg/dL: High HDL cholesterol ( negative risk factor for CHD) HDL - cholesterol is affected by a number of factors, e.g. smoking, excerise, hormones, sex and age. CHOLESTEROL 148 0 - 240 mg/dL [facility] TRIGLYCERIDES 105 30 - 160 mg/dL [facility] LDL 59 50 - 129 mg/dL [facility] Comment: LDL levels in terms of risk for coronary heart disease: <100 mg/dL: Optimal 100-129 mg/dL: Near or above optimal 130-159 mg/dL: Borderline high 160-189 mg/dL: High >190 mg/dL: Very High CARDIAC RISK RATIO 2.2(L) 3.3 - 4.4 C [facility] Blood 06/17/2019 7:38 AM EST 06/17/2019 8:08 AM EST November Reyna [facility] BLOOD ORDERABLES Final R esult [facility] [address] [place] [address] * Comprehensive metabolic panel (06/17/2019 7:38 AM EST) SODIUM 141 133 - 146 mmol/L [facility] POTASSIUM 4.2 3.3 - 5.1 mmol/L [facility] CHLORIDE 104 96 - 108 mmol/L [facility] CO2 26 21 - 35 mmol/L [facility] BUN 10 6 - 19 mg/dL [facility] CREATININE 0.60 0.5 - 1.5 mg/dL [facility] GLUCOSE 91 70 - 99 mg/dL [facility] ALBUMIN 4.1 3.9 - 4.8 g/dL [facility] TOTAL PROTEIN 6.7 6.5 - 8.0 g/dL [facility] CALCIUM 9.4 8.4 - 10.3 mg/dL [facility] ALKALINE PHOSPHATASE 46 39 - 117 U/L [facility] TOTAL BILIRUBIN 0.5 0.0 - 1.2 mg/dL [facility] AST 21 0 - 37 U/L [facility] ALT 12 0 - 40 U/L [facility] GLOBULIN 2.6 1 - 4.8 g/dL [facility] EGFR 107 >59 mL/min/1.7 3m2 [facility] Comment:If patient is black, multiply result by 1.159. Estimated glomerular filtration rate calculated using the CKD-EPI equation. ANION GAP 15 10 - 20 mmol/L [facility] Blood 06/17/2019 7:38 AM EST 06/17/2019 8:08 AM EST November Reyna [facility] BLOOD ORDERABLES Final R esult [address] [address] documented in this encounter Visit Diagnoses Diagnosis Routine general medical examination at a health care facility- Primary Avitaminosis D Unspecified vitamin D deficiency documented in this encounter Additional Health Concerns Infection Onset Date Last Indicated Resolved Time Influenza A 08/05/2023 08/05/2023 08/12/2023 1:2 2 AM EST CoV-Risk 08/05/2023 08/05/2023 08/16/2023 1:23 AM EST documented as of this encounter Care Teams Oil Gauger Relationship Specialty Start Date End Date Nitesh Rosenberg DO [address] [place] [address] PCP - General 08/16/17 Nitesh Rosenberg DO [address] [place] [address] Historical LMR Provider 06/03/17 08/20/21 Tati Lovell NP [address] [place] [address] Historical LMR Provider 06/03/17 2 Imani Schulz CNM 30 [place] [address] Historical LMR Provider 06/03/17 2 Leydi Carl MD [address] [place] [address] Historical LMR Provider 06/03/17 Brijesh Gonzalez MD [address] [place] [address] Historical LMR Provider 06/03/17 2 Liz Chamberlain NP [address] [place] [address] Historical LMR Provider 06/03/17 2 Nitesh Rosenberg DO [address] [place] [address] [email or web address] Insurance Assigned Provider 11/17/23 documented as of this encounter Additional Source Comments The information contained in this document represents components of the legal health record. It is not the complete legal health record.[facility]
--- OUTSIDE RECORDS SUMMARY | 2025-04-20 16:54 | XMS_ITS | Encounter Summary ---
Author Organization [facility] Address [address] [place] [address] Phone Care Team Providers Care Piano Refinisher Name Role Phone Chet Nitesh Herman DO Unavailable Tati Lovell FINISH GRINDER Unavailable [phone] Imani Schulz CNM Unavailable Leydi Carl MD Unavailable [phone] Brijesh Gonzalez MD Unavailable [phone] Liz Chamberlain FINISH GRINDER Unavailable Nitesh Rosenberg DO Primary Care Provider [phone] Nitesh Rosenberg DO Unavailable Encounter Details Date Type Department Care Team (Latest Contact Info) Description 06/16/2020 Transcribe Orders Virtual Department [address] [place] [address] Keira Alonso PA [address] [place] [address] [place] [address] Thoracic spine pain (Primary Dx) Social History [...] 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 Not on fi le documented as of this encounter Plan of Treatment Upcoming Encounters Date Type Department Care Team (Late st Contact Info) Description 05/26/2025 4:10 PM EDT Office Visit [facility] [address] [place] [address] Jennifer Posada MD 22 [facility], [address] [place] [address] documented as of this encounter Results * [...] documented as of this encounter Care Teams Piano Refinisher Relationship Specialty Start Date End Date Nitesh Rosenberg DO [address] [place] [address] PCP - General 08/16/17 Nitesh Rosenberg DO [address] [place] [address] Historical LMR Provider 06/03/17 08/20/21 Tati Lovell NP [address] [address] Historical LMR Provider 06/03/17 2 Imani Schulz CNM 30 [place] [address] Historical LMR Provider 06/03/17 2 Leydi Carl MD [address] [place] [address] Historical LMR Provider 06/03/17 Brijesh Gonzalez MD 61 [place] [address] Historical LMR Provider 06/03/17 2 Liz Chamberlain NP [address] [place] [address] Historical LMR Provider 06/03/17 2 Nitesh Rosenberg DO [address] [place] [address] [email or web address] Insurance Assigned Provider 11/17/23 documented as of this encounter Additional Source Comments The information contained in this document represents components of the legal health record. It is not the complete legal health record.[facility]
--- OUTSIDE RECORDS SUMMARY | 2025-04-20 16:54 | XMS_ITS | Encounter Summary ---
Author Organization [facility] Address [address] [place] [address] Phone Care Team Providers Care Corner Bead Operator Name Role Phone Leydi Carl MD Unavailable [phone] Nitesh Rosenberg DO Primary Care Provider [phone] Nitesh Rosenberg DO Unavailable Encounter Details Date Type Department Care Team (Late st Contact Info) Description 05/07/2024 Transcribe Orders [facility] [address] [place] [address] Nitesh Rosenberg DO 179 [facility] [place] [address] [email or web address] Social History Tobacco Use Types Packs/Day Years [...] 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 Not on fi le documented as of this encounter Plan of Treatment Upcoming Encounters Date Type Department Care Team (Late st Contact Info) Description 05/26/2025 4:10 PM EDT Office Visit [facility] 22 [place] [address] Jennifer Posada MD [address] [address] documented as of this encounter Visit Diagnoses Not on filedocumented in this encounter Care Teams Corner Bead Operator Relationship Specialty Start Date End Date Nitesh Rosenberg DO 444 [place] [address] PCP - General 08/16/17 Leydi Carl MD 444 [place] [address] Historical LMR Provider 06/03/17 Nitesh Rosenberg DO [address] [place] [address] [place] [address] Insurance Assigned Provider 11/17/23 documented as of this encounter Additional Source Comments The information contained in this document represents components of the legal health record. It is not the complete legal health record.[facility]
--- OUTSIDE RECORDS SUMMARY | 2025-04-20 16:54 | XMS_ITS | Encounter Summary ---
Author Organization [facility] Address [address] [place] [address] Phone Care Team Providers Care Drafter Automotive Design Layout Name Role Phone Nitesh Rosenberg DO Unavailable Tati Lovell HAND RUG BRAIDER Unavailable [phone] Imani Schulz CNM Unavailable Leydi Carl MD Unavailable [phone] Brijesh Gonzalez MD Unavailable [phone] Liz Chamberlain HAND RUG BRAIDER Unavailable Nitesh Rosenberg DO Primary Care Provider [phone] Nitesh Rosenberg DO Unavailable Encounter Details Date Type Department Care Team (Late st Contact Info) Description 03/19/2018 Ancillary Orders Virtual Department [address] [place] [address] Nitesh Rosenberg DO [address] [employer] [place] [address] Breast screening Social History Tobacco Use Types [...] 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 [...] documented as of this encounter Care Teams Drafter Automotive Design Layout Relationship Specialty Start Date End Date Nitesh Rosenberg DO [address] [place] [address] PCP - General 08/16/17 Nitesh Rosenberg DO [address] [place] [address] Historical LMR Provider 06/03/17 08/20/21 Tati Lovell NP [address] [address] Historical LMR Provider 06/03/17 2 Imani Schulz CNM 30 [place] [address] Historical LMR Provider 06/03/17 2 Leydi Carl MD [address] [place] [address] Historical LMR Provider 06/03/17 Brijesh Gonzalez MD 61 [place] [address] Historical LMR Provider 06/03/17 2 Liz Chamberlain NP [address] [place] [address] Historical LMR Provider 06/03/17 2 Nitesh Rosenberg DO [address] [place] [address] [email or web address] Insurance Assigned Provider 11/17/23 documented as of this encounter Additional Source Comments The information contained in this document represents components of the legal health record. It is not the complete legal health record.[facility]
--- OUTSIDE RECORDS SUMMARY | 2025-04-20 16:54 | XMS_ITS | Encounter Summary ---
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 Not on file Not on fi le documented as of this encounter Plan of Treatment Upcoming Encounters Date Type Department Care Team (Late st Contact Info) Description 05/26/2025 4:10 PM EDT Office Visit [facility] 22 [place] [address] Jennifer Posada MD [address] [address] [email or web address] documented as of this encounter Visit Diagnoses Not on filedocumented in this encounter Care Teams Marketing Co Op Relationship Specialty Start Date End Date Nitesh Rosenberg DO [address] [place] [address] [email or web address] PCP - General 08/16/17 Leydi Carl MD [address] [place] [address] Historical LMR Provider 06/03/17 Nitesh Rosenberg DO [address] [place] [address] [place] [address] [email or web address] Insurance Assigned Provider 11/17/23 documented as of this encounter Additional Source Comments The information contained in this document represents components of the legal health record. It is not the complete legal health record.[facility]
--- OUTSIDE RECORDS SUMMARY | 2025-04-20 16:54 | XMS_ITS | Encounter Summary ---
Author Organization [facility] Address [address] [place] [address] Phone Care Team Providers Care Business Intelligence Architect Name Role Phone Nitesh Rosenberg DO Unavailable Tati Lovell GUEST RELATIONS COORDINATOR Unavailable [phone] Imani Schulz CNM Unavailable Leydi Carl MD Unavailable [phone] Brijesh Gonzalez MD Unavailable [phone] Liz Chamberlain GUEST RELATIONS COORDINATOR Unavailable Nitesh Rosenberg DO Primary Care Provider Nitesh Rosenberg DO Unavailable Encounter Details Date Type Department Care Team (Late st Contact Info) Description 07/29/2020 Procedure Pass [facility], [address] [address] Social History Tobacco Use Types Packs/Day Years [...] 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 Not on file Not on fi le documented as of this encounter Functional Status documented as of this encounter Plan of Treatment Upcoming Encounters Date Type Department Care Team (Late st Contact Info) Description 05/26/2025 4:10 PM EDT Office Visit [facility] [address] [place] [address] [place] [address] Jennifer Posada MD [address] [address] documented as of this encounter Visit Diagnoses Not on filedocumented in this encounter Additional Health Concerns Infection Onset Date Last Indicated Resolved Time Influenza A 08/05/2023 08/05/2023 08/12/2023 1:22 AM EST CoV-Risk 08/05/2023 08/05/2023 08/16/2023 1:23 AM EST documented as of this encounter Care Teams Business Intelligence Architect Relationship Specialty Start Date End Date Nitesh Rosenberg DO [address] [place] [address] PCP - General 08/16/17 Nitesh Rosenberg DO 179 [place] [address] Historical LMR Provider 06/03/17 08/20/21 Tati Lovell NP [address] [address] Historical LMR Provider 06/03/17 2 Imani Schulz CNM [address] [place] [address] Historical LMR Provider 06/03/17 2 Leydi Carl MD [address] [place] [address] Historical LMR Provider 06/03/17 Brijesh Gonzalez MD [address] [place] [address] Historical LMR Provider 06/03/1708/20/2 2 Liz Chamberlain NP [address] [place] [address] Historical LMR Provider 06/03/17 2 Nitesh Rosenberg DO [address] [place] [address] [email or web address] Insurance Assigned Provider 11/17/23 documented as of this encounter Additional Source Comments The information contained in this document represents components of the legal health record. It is not the complete legal health record.[facility]
--- OUTSIDE RECORDS SUMMARY | 2025-04-20 16:54 | XMS_ITS | Encounter Summary ---
Author Organization [facility] Address [address] [address] Phone Care Team Providers Care Manager Floral Name Role Phone Leydi Carl MD Unavailable [phone] BigNitesh lino DO Primary Care Provider [phone] Nitesh Rosenberg DO Unavailable Encounter Details Date Type Department Care Team (Late st Contact Info) Description 05/15/2024 Ancillary Orders 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 Not on file Not on fi le documented as of this encounter Plan of Treatment Upcoming Encounters Date Type Department Care Team (Late st Contact Info) Description 05/26/2025 4:10 PM EDT Office Visit [facility] [address] [place] [address] Jennifer Posada MD 22 [facility], [address] [place] [address] documented as of this encounter Results * [...] unspecified documented in this encounter Care Teams Manager Floral Relationship Specialty Start Date End Date Nitesh Rosenberg DO 4 [place] [address] PCP - General 08/16/17 Leydi Carl MD 444 [place] [address] Historical LMR Provider 06/03/17 Nitesh Rosenberg DO 179 [place] [address] [email or web address] Insurance Assigned Provider 11/17/23 documented as of this encounter Additional Source Comments The information contained in this document represents components of the legal health record. It is not the complete legal health record.[facility]
--- NOTE | 2025-04-22 06:53 | HO.ANESPROP2 ---
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 (Acute) Bipolar 1 disorder, depressed, severe (Acute) Cognitive and behavioral changes (Acute) Other anxiety states (Acute) Bipolar affective, mixed, severe (Acute) Akathisia (Acute) Panic attacks (Acute) Anxiety (Acute) Past Medical History Medical History Menopause Routine medical exam Bipolar affective, mixed, severe Akathisia Panic attacks Anxiety No known health problems Functional capacity: independent ambulation Family History Family history of problems with anesthesia: No Surgical History History of Problems with Anesthesia: No Social History Social History Household Members: Spouse Household Members Other:: Housing: House Are you a primary pulmonary care nurse to a significant other at home: No Do you presently have visiting nurse or other home services: No Alcohol intake: current Alcohol intake frequency: does not drink Alcohol type: wine Patient Tobacco Use Status: Never used Tobacco e-Cigarette/Vaping Use: Never Used Second Hand Smoke Exposure: No Advance Directives: No Advance Directives Information Provided: Yes service: No Sexual orientation: Straight/Heterosexual Meds Allergies Allergy/AdvReac Type Severity Reaction Status Date / Time No Known Allergies Allergy Verified 03/11/24 14:49 Home Medications ?Medication ?Instructions ?Recorded ?Confirmed ?Last Taken ?Type estradiol 0.0375 mg/24 hr 1 patch topical 2XW 03/11/24 03/11/24 03/11/24 History semiweekly transdermal patch progesterone micronized 100 mg 100 mg PO DAILY 03/11/24 03/11/24 03/11/24 History capsule gabapentin 300 mg capsule 300 mg PO 3XD 10/23/24 10/23/24 Unknown History olanzapine 2.5 mg tablet 2.5 mg PO BEDTIME 10/23/24 10/23/24 Unknown History Exam Exam Date and Time: 04/22/2025 Airway TM Dist: >3cm Neck ROM: Full Loose/Missing/Broken Teeth: No Heart: rrr Lungs: cts Other: normal Assessment and Plan Assessment Anesthesia Assessment: Anesthesia Plan Discussed and Chart Reviewed Final Anesthetic Review Family History of Problems with Anesthesia: No History of Problems with Anesthesia: No ASA Class: III Final Preanesthetic Review: No Changes in Pt Med Stat, Meds/Allgs Chart Reviewed, Consent Obtained/Reviewed and Anes Risks/Benef Reviewed Patient Risk: Intermediate Procedure Risk: Intermediate Anesthetic Plan Anesthetic Plan: GA Disposition: Standard PACU
[2025-04-22 06:57] VITALS: BMI 18.9
--- NOTE | 2025-04-22 06:58 | MHC.SHP ---
Pre-Procedural Eval Section A - 24 Hr Update-Section A only Date of Service: 04/22/25 Section B - Complete if H&P > 30 days Chief Complaint: depression Details of Present Illness: pt has been doing well no c/o side effects Allergies: Allergies Allergy/AdvReac Type Severity Reaction Status Date / Time No Known Allergies Allergy Verified 03/11/24 14:49 Review of Systems Sugical H&P ROS: Negative: Constitution, Cardiovascular, Respiratory and Neurological Exam Surgical H&P Exam: Normal: HEENT, Normal: Lungs, Normal: Extremities and Normal: Neurological Plan Diagnosis/Plan: Unchanged I have reviewed the history and physical and performed a pertinent physical examination on my patient. No changes have occurred unless specified. Time Spent With Patient Time: Total time managing care of this patient today ____ minutes.
--- NOTE | 2025-04-22 07:00 | HO.ECTPROC ---
ECT Procedure Note Diagnosis/Treatment Date of Service: 04/22/25 Diagnosis: Major Depressive Disorder Previous ECT Date: 04/14/25 Current Treatment Number: 6 Treatment: Series Interval Clinical Notes: pt cont to feel quite well attention and fx have normalized sees dr lanier Time: Total time managing care of this patient today ____ minutes. ECT Settings Device: THYMATRON DGx Electrode Placement: Right Unilateral Program/Pulse Width: 0.25 Energy Percent: 100 Seizure Duration By EEG (in seconds): 47 Medications Administration General Anesthetic: Etomidate (14) Muscle Relaxant: Succinylcholine (80) Ancillary Medications Miscillaneous Medications: Midazolam (2) Airway Management Airway Management: Bag Mask Ventilation Treatment Recommendations No Changes Recommended: No change Electrode Placement: Right Unilateral Program/Pulse Width: 0.25 Energy Percent: 100 Notes: f/u 2 wks pt to call if relapse sx Pt Tolerated Procedure w/o Issue: Yes
[2025-04-22] MEDS: Lactated Ringers 1,000 ML 100 ML IVCONT (07:06)
[2025-04-22 07:30] VITALS: BP 104/68; PULSE 74; RESP 12; TEMP 36.6; O2SAT 100
[2025-04-22 07:35] VITALS: BP 105/77; PULSE 74; RESP 12; O2SAT 100
[2025-04-22 07:40] VITALS: BP 106/71; PULSE 68; RESP 12; O2SAT 100
[2025-04-22 07:45] VITALS: BP 101/68; PULSE 72; RESP 13; O2SAT 100
[2025-04-22 08:00] VITALS: BP 102/72; PULSE 75; RESP 14; O2SAT 100
[2025-04-22 08:15] VITALS: BP 103/64; PULSE 74; RESP 16; TEMP 37.2; O2SAT 100
== END 2025-04-22 08:40 | disposition home or self-care (01) ==
PROVIDERS: PCP Internal Medicine; Visit Provider Psychiatry & Neurology Psychiatry
PROC: (CPT 90870; principal; 2025-04-22 07:30)
DX: F31.63 Bipolar disorder, current episode mixed, severe, without psychotic features (principal); F41.9 Anxiety disorder, unspecified; F41.0 Panic disorder [episodic paroxysmal anxiety]; G25.71 Drug induced akathisia; Z79.899 Other long term (current) drug therapy
CPT/HCPCS: 90870; J0330; J2250; J2704

== ENCOUNTER → 2025-04-22 05:58 | Outpatient (BNV) | payer BC, SELFPAY | PROVIDERS: PCP Internal Medicine; Visit Provider Psychiatry & Neurology Psychiatry | DX: F33.2 Major depressive disorder, recurrent severe without psychotic features (principal) | CPT/HCPCS: 90870 ==

== ENCOUNTER 2025-05-06 05:56 | Day surgery (SDC) | payer BC, SELFPAY ==
--- OUTSIDE RECORDS SUMMARY | 2025-04-24 16:41 | XMS_ITS | Encounter Summary ---
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 Not on fi le documented as of this encounter Plan of Treatment Upcoming Encounters Date Type Department Care Team (Late st Contact Info) Description 05/26/2025 4:10 PM EDT Office Visit [facility] [address] [place] [address] [place] [address] Jennifer Posada MD 22 [facility], [address] [place], [place] [id number] [email or web address] documented as of this encounter Visit Diagnoses Not on filedocumented in this encounter Additional Health Concerns Infection Onset Date Last Indicated Resolved Time Influenza A 08/05/2023 08/05/2023 08/12/2023 1:22 AM EST CoV-Risk 08/05/2023 08/05/2023 08/16/2023 1:23 AM EST documented as of this encounter Care Teams Rn Document Improvement Relationship Specialty Start Date End Date Nitesh Rosenberg DO [address] [place] [address] [email or web address] PCP - General 08/16/17 Leydi Carl MD [address] [place] [address] Historical LMR Provider 06/03/17 Nitesh Rosenberg DO [address] [place] [address] [email or web address] Insurance Assigned Provider 11/17/23 documented as of this encounter Additional Source Comments The information contained in this document represents components of the legal health record. It is not the complete legal health record.[facility]
--- OUTSIDE RECORDS SUMMARY | 2025-04-24 16:41 | XMS_ITS | Encounter Summary ---
Author Organization [facility] Address [address] [place] [address] Phone Care Team Providers Care Wash Tub Machine Operator Name Role Phone Chet Nitesh Herman DO Unavailable Tati Lovell PUBLIC RECORDS RESEARCHER Unavailable Imani Schulz CNM Unavailable Leydi Carl MD Unavailable [phone] Brijesh Gonzalez MD Unavailable [phone] Liz Chamberlain PUBLIC RECORDS RESEARCHER Unavailable Nitesh Rosenberg DO Primary Care Provider [phone] Nitesh Rosenberg DO Unavailable Encounter Details Date Type Department Care Team (Latest Contact Info) Description 04/09/2018 Transcribe Orders [facility] [address] [place] [address] Cadence Orellana PA-C 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 Not on file Not on fi le documented as of this encounter Plan of Treatment Upcoming Encounters Date Type Department Care Team (Late st Contact Info) Description 05/26/2025 4:10 PM EDT Office Visit [facility] [address] [place] [address] Jennifer Posada MD 22 [facility], [address] [place] [address] [email or web address] documented as of this encounter Results * Gliadin deamidated antibody, IgG/IgA (04/09/2018 11:53 AM EDT) Gliadin Ab, IGA <10.0 <20.0 (Negative) U [facility] DPT OF LAB MED AND PAT+ GLIADIN AB IGG <10.0 <20.0 (Negative) U [facility] OF LAB MED AND PAT+ Blood 04/09/2018 11:5 3 AM EDT 04/09/2018 12:12 PM EDT November Reyna [facility] LAB BLOOD ORDERABLES Final R esult Performing Organization Address City/[facility]/ZIP Co de Phone Number [facility] DPT OF LAB MED AND PAT+ [address] [place] [address] * Tissue transglutaminase IgA (04/09/2018 11:53 AM EDT) TTG IGA ANTIBODY <1.2 <4.0 (Negative) U/mL [facility] DPT OF LAB MED AND PAT+ Blood 04/09/2018 11:5 3 AM EDT 04/09/2018 12:12 PM EDT November Reyna [facility] LAB BLOOD ORDERABLES Final R esult Performing Organization Address City/[facility]/ZIP Co de Phone Number [facility] OF LAB MED AND PAT+ [address] [place] [address] documented in this encounter Visit Diagnoses Diagnosis Stomach ache- Primary Dyspepsia and other specified disorders of function of stomach documented in this encounter Additional Health Concerns Infection Onset Date Last Indicated Resolved Time Influenza A 08/05/2023 08/05/2023 08/12/2023 1:22 AM EST CoV-Risk 08/05/2023 08/05/2023 08/16/2023 1:23 AM EST documented as of this encounter Care Teams Wash Tub Machine Operator Relationship Specialty Start Date End Date Nitesh Rosenberg DO [address] [place] [address] PCP - General 08/16/17 Nitesh Rosenberg DO [address] [place] [address] Historical LMR Provider 06/03/17 08/20/21 Tati Lovell NP [address] [address] Historical LMR Provider 06/03/17 2 Imani Schulz CNM 30 [place] [address] Historical LMR Provider 06/03/17 2 Leydi Carl MD [address] [place] [address] Historical LMR Provider 06/03/17 Brijesh Gonzalez MD 61 [place] [address] Historical LMR Provider 06/03/17 2 Liz Chamberlain NP [address] [place] [address] Historical LMR Provider 06/03/17 2 Nitesh Rosenberg DO [address] [place] [address] [email or web address] Insurance Assigned Provider 11/17/23 documented as of this encounter Additional Source Comments The information contained in this document represents components of the legal health record. It is not the complete legal health record.[facility]
--- OUTSIDE RECORDS SUMMARY | 2025-04-24 16:41 | XMS_ITS | Encounter Summary ---
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 Not on file Not on fi le documented as of this encounter Plan of Treatment Upcoming Encounters Date Type Department Care Team (Late st Contact Info) Description 05/26/2025 4:10 PM EDT Office Visit [facility] 22 [place] [address] Jennifer Posada MD [address] [address] [email or web address] documented as of this encounter Visit Diagnoses Not on filedocumented in this encounter Care Teams Skin Tanner Relationship Specialty Start Date End Date Nitesh Rosenberg DO [address] [place] [address] [email or web address] PCP - General 08/16/17 Leydi Carl MD [address] [place] [address] Historical LMR Provider 06/03/17 Nitesh Rosenberg DO [address] [place] [address] [place] [address] [email or web address] Insurance Assigned Provider 11/17/23 documented as of this encounter Additional Source Comments The information contained in this document represents components of the legal health record. It is not the complete legal health record.[facility]
--- OUTSIDE RECORDS SUMMARY | 2025-04-24 16:41 | XMS_ITS | Clinical Summary ---
Author Organization [facility] Address [address] [place] [address] Phone Care Team Providers Care Java Integration Developer Name Role Phone Leydi Carl MD Unavailable [phone] [place], Nitesh Herman DO Primary Care Provider [phone] Nitesh Rosenberg DO Unavailable Allergies No known [...] Department Care Team Description 02/19/2025 Telephone [facility] [address] [place] [address] Katie Ahmadi, [email or web address] 02/19/2025 Telephone [facility] [address] [place] [address] Katie Ahmadi, [email or web address] 02/18/2025 Refill [facility] [address] [place] [address] Jennifer Posada MD Medication Refill from Last [...] 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 Not on file [...] Visit [facility] [address] [place] [address] [place] [address] Jennifer Posada MD 22 [facility], [address] [place] [address] [email or web address] Health Maintenance Due Date Last Done Comments [...] (04/25/2024 8:02 AM EDT) HDL 87 mg/dL [facility] Comment: Interpretation <40 mg/dL: Low HDL cholesterol (major risk factor for CHD) Greater than or equal to 60 mg/dL: High HDL cholesterol ( negative risk factor for CHD) HDL - cholesterol is affected by a number of factors, e.g. smoking, excerise, hormones, sex and age. CHOLESTEROL 173 0 - 240 mg/dL [facility] TRIGLYCERIDES 61 30 - 160 mg/dL [facility] LDL 74 50 - 129 mg/dL [facility] Comment: LDL levels in terms of risk for coronary heart disease: <100 mg/dL: Optimal 100-129 mg/dL: Near or above optimal 130-159 mg/dL: Borderline high 160-189 mg/dL: High >190 mg/dL: Very High CARDIAC RISK RATIO 2.0(L) 3.3 - 4.4 C [facility] Blood 04/25/2024 8:02 AM EDT 04/25/2024 8:07 AM EDT Denise Williamson NP LAB BLOOD ORDERABLES Fi nal Result [address] [address] * Pap Smear (07/29/2020 12:00 AM EST) 07/29/2020 07/30/2020 8:2 7 AM EST Narrative SEE NARRATIVE - 08/03/2020 11:40 AM EST [address] [address] Director [employer] Center: Kassandra Valerio MD NURSE PLASTICS Cytology Report FINAL DIAGNOSIS A. PAP SMEAR [...] 52, 56, 58, 59, 66, 68) by [employer] Onclarity HR-HPV analysis. Clinical correlation is advised. This HPV test was performed at [facility], [address] [place] [address]. This test has been FDA approved for SurePath cervical cytology specimens. The accuracy and precision of this test for all other specimen sources has been verified in the Cytopathology Laboratory of the [facility] and has not been cleared or approved by the U.S. Food and Drug Administration. Clinical correlation is advised. CLINICAL HISTORY Date of Last Menstrual Period: Not Provided Menstrual History: Blanca-Menopausal Contraceptive History: BCPs Other Clinical Conditions: Screening Pap SPECIMEN SOURCE A: PAP SMEAR (SUREPATH) CE Patient Name: RAZA JARRELL : 1970 (Age: 50) Sex: F Institution[facility] Location: [facility] Date of Collection: 07/29/2020 Date of Reported: 08/03/2020 11:40 Results to: Jennifer Posada MD Jennifer Posada MD CYTOLOGY ORDERABLES Final Result SEE NARRATIVE from Last 3 Months or Most Recently Relevant to Health Maintenance Insurance [facility] PPO EPO [facility] [place] [address] [place] [address] [address] [place] [address] [place] [address] [place] [address] PPO EPO [facility] [place] [address] [place] [address] PPO EPO [facility] PPO EPO Care Teams Java Integration Developer Relationship Specialty Start Date End Date Nitesh Rosenberg DO [address] [place] [address] [email or web address] PCP - General 08/16/17 Leydi Carl MD 4 [place] [address] Historical LMR Provider 06/03/17 Nitesh Rosenberg DO [address] [place] [address] [email or web address] Insurance Assigned Provider 11/17/23 Additional Source Comments The information contained in this document represents components of the legal health record. It is not the complete legal health record.[facility]
--- OUTSIDE RECORDS SUMMARY | 2025-04-24 16:41 | XMS_ITS | Encounter Summary ---
Author Organization [facility] Address [address] [place] [address] Phone Care Team Providers Care Senior Litigation Paralegal Name Role Phone Nitesh Rosenberg DO Unavailable Tati Lovell OUTSOLE PARAFFINER Unavailable [phone] Imani Schulz CNM Unavailable Leydi Carl MD Unavailable [phone] Brijesh Gonzalez MD Unavailable [phone] Liz Chamberlain OUTSOLE PARAFFINER Unavailable Nitesh Rosenberg DO Primary Care Provider Nitesh Rosenberg DO Unavailable Encounter Details Date Type Department Care Team (Late st Contact Info) Description 03/19/2018 Ancillary Orders Virtual Department [address] [place] [address] Nitesh Rosenberg DO 179 [facility] [place] [address] Breast screening Social History Tobacco Use Types [...] 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 [...] documented as of this encounter Care Teams Senior Litigation Paralegal Relationship Specialty Start Date End Date Nitesh Rosenberg DO [address] [place] [address] PCP - General 08/16/17 Nitesh Rosenberg DO [address] [place] [address] Historical LMR Provider 06/03/17 08/20/21 Tati Lovell NP [address] [address] Historical LMR Provider 06/03/17 2 Imani Schulz CNM 30 [place] [address] Historical LMR Provider 06/03/17 2 Leydi Carl MD [address] [place] [address] Historical LMR Provider 06/03/17 Brijesh Gonzalez MD 61 [place] [address] Historical LMR Provider 06/03/17 2 Liz Chamberlain NP [address] [place] [address] Historical LMR Provider 06/03/17 2 Nitesh Rosenberg DO [address] [place] [address] [email or web address] Insurance Assigned Provider 11/17/23 documented as of this encounter Additional Source Comments The information contained in this document represents components of the legal health record. It is not the complete legal health record.[facility]
--- OUTSIDE RECORDS SUMMARY | 2025-04-24 16:42 | XMS_ITS | Encounter Summary ---
Author Organization [facility] Address [address] [address] Phone Care Team Providers Care Wheel Tuner Name Role Phone Leydi Carl MD Unavailable [phone] BigNitesh lino DO Primary Care Provider [phone] Nitesh Rosenberg DO Unavailable Encounter Details Date Type Department Care Team (Late st Contact Info) Description 05/15/2024 Ancillary Orders [facility], [facility] 30 [place] [address] Jennifer Posada MD [address] [address] [email or web address] Abnormal mammogram (Primary Dx) Social History Tobacco [...] 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 us Jennifer oPsada MD IMG MG EXAMS Final Resu lt documented in this encounter Visit Diagnoses Diagnosis Abnormal mammogram- Primary Abnormal mammogram, unspecified Abnormal mammogram Abnormal mammogram, unspecified Abnormal mammogram Abnormal mammogram, unspecified documented in this encounter Care Teams Wheel Tuner Relationship Specialty Start Date End Date Nitesh Rosenberg DO 4 [place] [address] PCP - General 08/16/17 Leydi Carl MD [address] [place] [address] Historical LMR Provider 06/03/17 Nitesh Rosenbegr DO 179 [place] [address] [email or web address] Insurance Assigned Provider 11/17/23 documented as of this encounter Additional Source Comments The information contained in this document represents components of the legal health record. It is not the complete legal health record.[facility]
--- OUTSIDE RECORDS SUMMARY | 2025-04-24 16:42 | XMS_ITS | Encounter Summary ---
Author Organization [facility] Address [address] [place] [address] Phone Care Team Providers Care Legislative Director Name Role Phone Nitesh Rosenberg DO Unavailable Tati Lovell DESIGN CHIEF Unavailable Imani Schulz CNM Unavailable Leydi Carl MD Unavailable [phone] Brijesh Gonzalez MD Unavailable [phone] Liz Chambrelain DESIGN CHIEF Unavailable Nitesh Rosenberg DO Primary Care Provider Nitesh Rosenberg DO Unavailable Encounter Details Date Type Department Care Team (Late st Contact Info) Description 07/29/2020 Procedure Pass [facility], [address] [address] Social History Tobacco Use Types Packs/Day Years [...] 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 Not on fi le documented as of this encounter Functional Status documented as of this encounter Plan of Treatment Upcoming Encounters Date Type Department Care Team (Late st Contact Info) Description 05/26/2025 4:10 PM EDT Office Visit [facility] [address] [place] [address] [place] [address] Jennifer Posada MD [address] [address] documented as of this encounter Visit Diagnoses Not on filedocumented in this encounter Additional Health Concerns Infection Onset Date Last Indicated Resolved Time Influenza A 08/05/2023 08/05/2023 08/12/2023 1:22 AM EST CoV-Risk 08/05/2023 08/05/2023 08/16/2023 1:23 AM EST documented as of this encounter Care Teams Legislative Director Relationship Specialty Start Date End Date Nitesh Rosenberg DO [address] [place] [address] PCP - General 08/16/17 Nitesh Rosenberg DO 179 [place] [address] Historical LMR Provider 06/03/17 08/20/21 Tati Lovell NP [address] [address] Historical LMR Provider 06/03/17 2 Imani Schulz CNM [address] [place] [address] Historical LMR Provider 06/03/17 2 Leydi Carl MD [address] [place] [address] Historical LMR Provider 06/03/17 Brijesh Gonzalez MD [address] [place] [address] Historical LMR Provider 06/03/1708/20/2 2 Liz Chamberlain NP [address] [place] [address] Historical LMR Provider 06/03/17 2 Nitesh Rosenberg DO [address] [place] [address] [email or web address] Insurance Assigned Provider 11/17/23 documented as of this encounter Additional Source Comments The information contained in this document represents components of the legal health record. It is not the complete legal health record.[facility]
--- OUTSIDE RECORDS SUMMARY | 2025-04-24 16:42 | XMS_ITS | Encounter Summary ---
Author Organization [facility] Address [address] [place] [address] Phone Care Team Providers Care Service Coordinator Elderly Facility Name Role Phone Chet Nitesh Herman DO Unavailable Tati Lovell ARRESTING GEAR OPERATOR Unavailable [phone] Imani Schulz CNM Unavailable Leydi Carl MD Unavailable [phone] Brijesh Gonzalez MD Unavailable [phone] Liz Chamberlain ARRESTING GEAR OPERATOR Unavailable Nitesh Rosenberg DO Primary Care Provider [phone] Nitesh Rosenberg DO Unavailable Encounter Details Date Type Department Care Team (Latest Contact Info) Description 06/17/2019 Transcribe Orders [facility] [address] [place] [address] Cadence Orellana PA-C 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 Not on file Not on fi le documented as of this encounter Plan of Treatment Upcoming Encounters Date Type Department Care Team (Late st Contact Info) Description 05/26/2025 4:10 PM EDT Office Visit [facility] [address] [place] [address] Jennifer Posada MD 22 [facility], [address] [place] [address] [email or web address] documented as of this encounter Results * 25-OH vitamin D (06/17/2019 7:38 AM EST) 25 OH VIT D (TOTAL) 42 30 - 60 ng/mL [facility] Blood 06/17/2019 7:38 AM EST 06/17/2019 8:08 AM EST November Reyna [facility] BLOOD ORDERABLES Final R esult [facility] [address] [place] [address] * (ABNORMAL) CBC and differential (06/17/2019 7:38 AM EST) WBC 7.90 3.40 - 11.20 K/uL [facility] RBC 4.20 3.80 - 4.80 M/uL [facility] HGB 13.6 12.0 - 15.0 g/dL [facility] HCT 40.2 36.0 - 46.0 % [facility] PLT 273 130 - 400 K/uL [facility] MCV 95.7 79.0 - 98.0 fL [facility] MCH 32.4 27.0 - 34.8 pg [facility] MCHC 33.8 31.5 - 36.0 g/dL [facility] RDW 12.1 10.8 - 14.6 % [facility] MPV 9.3(L) 9.4 - 12.4 fl [facility] NRBC 0.00 0.00 /100 WBCs [facility] ABSOLUTE NRBC 0.00 0.00 K/uL [facility] DIFF METHOD Auto [facility] NEUTS 68.7 45.30 - 77.70 % [facility] LYMPHS 20.5 12.30 - 39.70 % [facility] MONOS 7.0 4.10 - 12.80 % [facility] EOS 2.2 0 - 7.2 % [facility] BASOS 1.3 0 - 2.80 % [facility] Granulocytes, immature (%) 0.3 0.0 - 0.9 % [facility] ABSOLUTE NEUTS 5.44 1.40 - 7.70 K/uL [facility] ABSOLUTE LYMPHS 1.62 0.60 - 3.20 K/uL [facility] ABSOLUTE MONOS 0.55 0.11 - 0.59 K/uL [facility] ABSOLUTE EOS 0.17 0.01 - 0.50 K/uL [facility] ABSOLUTE BASOS 0.10(H) 0.00 - 0.08 K/uL [facility] Granulocytes, immature 0.02 0.00 - 0.05 K/uL [facility] Blood 06/17/2019 7:38 AM EST 06/17/2019 8:08 AM EST November Reyna [facility] BLOOD ORDERABLES Final R esult Performing Organization Address City/State/[facility] Co de Phone Number [address] [address] * (ABNORMAL) Lipid panel (06/17/2019 7:38 AM EST) HDL 68 mg/dL [facility] Comment: Interpretation <40 mg/dL: Low HDL cholesterol (major risk factor for CHD) Greater than or equal to 60 mg/dL: High HDL cholesterol ( negative risk factor for CHD) HDL - cholesterol is affected by a number of factors, e.g. smoking, excerise, hormones, sex and age. CHOLESTEROL 148 0 - 240 mg/dL [facility] TRIGLYCERIDES 105 30 - 160 mg/dL [facility] LDL 59 50 - 129 mg/dL [facility] Comment: LDL levels in terms of risk for coronary heart disease: <100 mg/dL: Optimal 100-129 mg/dL: Near or above optimal 130-159 mg/dL: Borderline high 160-189 mg/dL: High >190 mg/dL: Very High CARDIAC RISK RATIO 2.2(L) 3.3 - 4.4 C [facility] Blood 06/17/2019 7:38 AM EST 06/17/2019 8:08 AM EST November Reyna [facility] BLOOD ORDERABLES Final R esult [facility] [address] [place] [address] * Comprehensive metabolic panel (06/17/2019 7:38 AM EST) SODIUM 141 133 - 146 mmol/L [facility] POTASSIUM 4.2 3.3 - 5.1 mmol/L [facility] CHLORIDE 104 96 - 108 mmol/L [facility] CO2 26 21 - 35 mmol/L [facility] BUN 10 6 - 19 mg/dL [facility] CREATININE 0.60 0.5 - 1.5 mg/dL [facility] GLUCOSE 91 70 - 99 mg/dL [facility] ALBUMIN 4.1 3.9 - 4.8 g/dL [facility] TOTAL PROTEIN 6.7 6.5 - 8.0 g/dL [facility] CALCIUM 9.4 8.4 - 10.3 mg/dL [facility] ALKALINE PHOSPHATASE 46 39 - 117 U/L [facility] TOTAL BILIRUBIN 0.5 0.0 - 1.2 mg/dL [facility] AST 21 0 - 37 U/L [facility] ALT 12 0 - 40 U/L [facility] GLOBULIN 2.6 1 - 4.8 g/dL [facility] EGFR 107 >59 mL/min/1.7 3m2 [facility] Comment:If patient is black, multiply result by 1.159. Estimated glomerular filtration rate calculated using the CKD-EPI equation. ANION GAP 15 10 - 20 mmol/L [facility] Blood 06/17/2019 7:38 AM EST 06/17/2019 8:08 AM EST November Reyna [facility] BLOOD ORDERABLES Final R esult [address] [address] documented in this encounter Visit Diagnoses Diagnosis Routine general medical examination at a health care facility- Primary Avitaminosis D Unspecified vitamin D deficiency documented in this encounter Additional Health Concerns Infection Onset Date Last Indicated Resolved Time Influenza A 08/05/2023 08/05/2023 08/12/2023 1:2 2 AM EST CoV-Risk 08/05/2023 08/05/2023 08/16/2023 1:23 AM EST documented as of this encounter Care Teams Service Coordinator Elderly Facility Relationship Specialty Start Date End Date Nitesh Rosenberg DO [address] [place] [address] PCP - General 08/16/17 Nitesh Rosenberg DO 179 [place] [address] Historical LMR Provider 06/03/17 08/20/21 Tati Lovell NP [address] [place] [address] Historical LMR Provider 06/03/17 2 Imani Schulz CNM 30 [place] [address] Historical LMR Provider 06/03/17 2 Leydi Carl MD [address] [place] [address] Historical LMR Provider 06/03/17 Brijesh Gonzalez MD [address] [place] [address] Historical LMR Provider 06/03/17 2 Liz Chamberlain NP [address] [place] [address] Historical LMR Provider 06/03/17 2 Nitesh Rosenberg DO [address] [place] [address] [email or web address] Insurance Assigned Provider 11/17/23 documented as of this encounter Additional Source Comments The information contained in this document represents components of the legal health record. It is not the complete legal health record.[facility]
--- OUTSIDE RECORDS SUMMARY | 2025-04-24 16:42 | XMS_ITS | Encounter Summary ---
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 PCP - General 08/16/17 Leydi Carl MD [address] [place] [address] Historical LMR Provider 06/03/17 Nitesh Rosenberg DO [address] [place] [address] [place] [address] [email or web address] Insurance Assigned Provider 11/17/23 documented as of this encounter Additional Source Comments The information contained in this document represents components of the legal health record. It is not the complete legal health record.[facility]
--- OUTSIDE RECORDS SUMMARY | 2025-04-24 16:42 | XMS_ITS | Encounter Summary ---
Author Organization [facility] Address [address] [place] [address] Phone Care Team Providers Care Telemarketer Supervisor Name Role Phone Leydi Carl MD Unavailable [phone] Nitesh Rosenberg DO Primary Care Provider [phone] Nitesh Rosenberg DO Unavailable Encounter Details Date Type Department Care Team (Late st Contact Info) Description 05/07/2024 Transcribe Orders [facility] [address] [place] [address] Nitesh Rosenberg DO 179 [facility] [place] [address] [email or web address] Social History Tobacco Use Types Packs/Day Years [...] Visit [facility] 22 [place] [address] Jennifer Posada MD [address] [address] documented as of this encounter Visit Diagnoses Not on filedocumented in this encounter Care Teams Telemarketer Supervisor Relationship Specialty Start Date End Date Nitesh Rosenberg DO [address] [place] [address] [email or web address] PCP - General 08/16/17 Leydi Carl MD [address] [place] [address] Historical LMR Provider 06/03/17 Nitesh Rosenberg DO [address] [place] [address] [place] [address] Insurance Assigned Provider 11/17/23 documented as of this encounter Additional Source Comments The information contained in this document represents components of the legal health record. It is not the complete legal health record.[facility]
--- OUTSIDE RECORDS SUMMARY | 2025-04-24 16:42 | XMS_ITS | Encounter Summary ---
Author Organization [facility] Address [address] [place] [address] Phone Care Team Providers Care Sorting Machine Operator Name Role Phone Chet Nitesh Herman DO Unavailable Tati Lovell LIQUOR GALLERY OPERATOR Unavailable [phone] Imani Schulz CNM Unavailable Leydi Carl MD Unavailable [phone] Brijesh Gonzalez MD Unavailable [phone] Liz Chamberlain LIQUOR GALLERY OPERATOR Unavailable Nitesh Rosenberg DO Primary Care Provider [phone] Nitesh Rosenberg DO Unavailable Encounter Details Date Type Department Care Team (Late st Contact Info) Description 06/16/2020 Ancillary Orders Virtual Department 30 [place] [address] Keira Alonso PA [address] [place] [address] [place] [address] Low back pain, unspecified back pain laterality, [...] 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 Not on fi le documented as of this encounter Plan of Treatment Upcoming Encounters Date Type Department Care Team (Late st Contact Info) Description 05/26/2025 4:10 PM EDT Office Visit [facility] [address] [place] [address] Jennifer Posada MD 22 [facility], [address] [place] [address] [email or web address] documented as of this encounter Results * [...] documented as of this encounter Care Teams Sorting Machine Operator Relationship Specialty Start Date End Date Nitesh Rosenberg DO [address] [place] [address] PCP - General 08/16/17 Nitesh Rosenberg DO [address] [place] [address] Historical LMR Provider 06/03/17 08/20/21 Tati Lovell NP [address] [address] Historical LMR Provider 06/03/17 2 Imani Schulz CNM 30 [place] [address] Historical LMR Provider 06/03/17 2 Leydi Carl MD [address] [place] [address] Historical LMR Provider 06/03/17 Brijesh Gonzalez MD 61 [place] [address] Historical LMR Provider 06/03/17 2 Liz Chamberlain NP [address] [place] [address] Historical LMR Provider 06/03/17 2 Nitesh Rosenberg DO [address] [place] [address] [email or web address] Insurance Assigned Provider 11/17/23 documented as of this encounter Additional Source Comments The information contained in this document represents components of the legal health record. It is not the complete legal health record.[facility]
--- OUTSIDE RECORDS SUMMARY | 2025-04-24 16:42 | XMS_ITS | Encounter Summary ---
Author Organization [facility] Address [address] [place] [address] Phone Care Team Providers Care Oil Well Logging Engineer Name Role Phone Chet Nitesh Herman DO Unavailable Tati Lovell LITHOGRAPH OPERATOR Unavailable Imani Schulz CNM Unavailable Leydi Carl MD Unavailable [phone] Brijesh Gonzalez MD Unavailable [phone] Liz Chamberlain LITHOGRAPH OPERATOR Unavailable Nitesh Rosenberg DO Primary Care Provider Nitesh Rosenberg DO Unavailable Encounter Details Date Type Department Care Team (Latest Contact Info) Description 06/16/2020 Transcribe Orders Virtual Department 30 [place] [address] Keira Alonso PA [address] [place] [address] [place] [address] Thoracic spine pain (Primary Dx) Social History [...] 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 Not on file Not on fi le documented as of this encounter Plan of Treatment Upcoming Encounters Date Type Department Care Team (Late st Contact Info) Description 05/26/2025 4:10 PM EDT Office Visit [facility] [address] [place] [address] Jennifer Posada MD 22 [facility], [address] [place] [address] [email or web address] documented as of this encounter Results * [...] as of this encounter Care Teams Oil Well Logging Engineer Relationship Specialty Start Date End Date Nitesh Rosenberg DO [address] [place] [address] PCP - General 08/16/17 Nitesh Rosenberg DO [address] [place] [address] Historical LMR Provider 06/03/17 08/20/21 Tati Lovell NP [address] [address] Historical LMR Provider 06/03/17 2 Imani Schulz CNM 30 [place] [address] Historical LMR Provider 06/03/17 2 Leydi Carl MD [address] [place] [address] Historical LMR Provider 06/03/17 Brijesh Gonzalez MD 61 [place] [address] Historical LMR Provider 06/03/17 2 Liz Chamberlain NP [address] [place] [address] Historical LMR Provider 06/03/17 2 Nitesh Rosenberg DO [address] [place] [address] [email or web address] Insurance Assigned Provider 11/17/23 documented as of this encounter Additional Source Comments The information contained in this document represents components of the legal health record. It is not the complete legal health record.[facility]
[2025-05-06] VITALS (8 sets, daily range): BP systolic 98–112; BP diastolic 65–77; PULSE 68–81; RESP 13–16; TEMP 36.5–37.1; O2SAT 100; BMI 18.9
--- NOTE | 2025-05-06 06:44 | HO.ANESPROP2 ---
[facility] Active Problems Active Problems: All Active Problems 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 (Acute) Bipolar 1 disorder, depressed, severe (Acute) Cognitive and behavioral changes (Acute) Other anxiety states (Acute) Bipolar affective, mixed, severe (Acute) Akathisia (Acute) Panic attacks (Acute) Anxiety (Acute) Past Medical History Medical History Menopause Routine medical exam Bipolar affective, mixed, severe Akathisia Panic attacks Anxiety No known health problems Family History Family history of problems with anesthesia: No Surgical History History of Problems with Anesthesia: No Social History Social History Household Members: Spouse Household Members Other:: Housing: House Are you a primary health care law specialist to a significant other at home: No Do you presently have visiting nurse or other home services: No Alcohol intake: current Alcohol intake frequency: does not drink Alcohol type: wine Patient Tobacco Use Status: Never used Tobacco e-Cigarette/Vaping Use: Never Used Second Hand Smoke Exposure: No Advance Directives: No Advance Directives Information Provided: Yes service: No Sexual orientation: Straight/Heterosexual Meds Allergies Allergy/AdvReac Type Severity Reaction Status Date / Time No Known Allergies Allergy Verified 03/11/24 14:49 Home Medications ?Medication ?Instructions ?Recorded ?Confirmed ?Last Taken ?Type estradiol 0.0375 mg/24 hr 1 patch topical 2XW 03/11/24 03/11/24 03/11/24 History semiweekly transdermal patch progesterone micronized 100 mg 100 mg PO DAILY 03/11/24 03/11/24 03/11/24 History capsule gabapentin 300 mg capsule 300 mg PO 3XD 10/23/24 10/23/24 Unknown History olanzapine 2.5 mg tablet 2.5 mg PO BEDTIME 10/23/24 10/23/24 Unknown History Exam Height,Weight and Vital Signs: Height 5 ft 6 in Weight 53.07 kg Airway Mallampati Class: II TM Dist: >3cm Neck ROM: Full Heart: rrr Lungs: cta Assessment and Plan Assessment Anesthesia Assessment: Anesthesia Plan Discussed and Chart Reviewed Final Anesthetic Review Family History of Problems with Anesthesia: No History of Problems with Anesthesia: No NPO: Yes ASA Class: III Final Preanesthetic Review: No Changes in Pt Med Stat, Meds/Allgs Chart Reviewed and Consent Obtained/Reviewed Patient Risk: Intermediate Procedure Risk: Intermediate Anesthetic Plan Anesthetic Plan: GA Disposition: Standard PACU
--- NOTE | 2025-05-06 07:06 | MHC.SHP ---
Pre-Procedural Eval Section A - 24 Hr Update-Section A only Date of Service: 05/06/25 Section B - Complete if H&P > 30 days Chief Complaint: depression Details of Present Illness: pt has been doing well no c/o side effects Relevant Social History: None Present Medications: see Short Stay Collaborative assessment Allergies: Allergies Allergy/AdvReac Type Severity Reaction Status Date / Time No Known Allergies Allergy Verified 03/11/24 14:49 Review of Systems Sugical H&P ROS: Negative: Constitution, Cardiovascular, Respiratory and Neurological and Yes, Specify: Psychiatric (mild obsessional sx) Exam Surgical H&P Exam: Normal: HEENT, Normal: Lungs, Normal: Extremities and Normal: Neurological Plan Diagnosis/Plan: Unchanged I have reviewed the history and physical and performed a pertinent physical examination on my patient. No changes have occurred unless specified. Time Spent With Patient Time: Total time managing care of this patient today ____ minutes.
--- NOTE | 2025-05-06 07:07 | HO.ECTPROC ---
ECT Procedure Note Diagnosis/Treatment Date of Service: 05/06/25 Diagnosis: Major Depressive Disorder Previous ECT Date: 04/22/25 Current Treatment Number: 8 Treatment: Series Interval Clinical Notes: pt cont to feel quite well attention and fx have normalized sees dr lanier Time: Total time managing care of this patient today ____ minutes. ECT Settings Device: THYMATRON DGx Electrode Placement: Right Unilateral Program/Pulse Width: 0.25 Energy Percent: 100 Seizure Duration By EEG (in seconds): 46 Medications Administration General Anesthetic: Etomidate (14) Muscle Relaxant: Succinylcholine (80) Ancillary Medications Miscillaneous Medications: Midazolam (2) Airway Management Airway Management: Bag Mask Ventilation Treatment Recommendations No Changes Recommended: No change Electrode Placement: Right Unilateral Program/Pulse Width: 0.25 Energy Percent: 100 Notes: f/u 2 wks pt to call if relapse sx Pt Tolerated Procedure w/o Issue: Yes
== END 2025-05-06 08:28 | disposition home or self-care (01) ==
PROVIDERS: PCP Internal Medicine; Visit Provider Psychiatry & Neurology Psychiatry
PROC: (CPT 90870; principal; 2025-05-06 07:00)
DX: F31.4 Bipolar disorder, current episode depressed, severe, without psychotic features (principal); F41.9 Anxiety disorder, unspecified; F41.0 Panic disorder [episodic paroxysmal anxiety]; G25.71 Drug induced akathisia; Z79.899 Other long term (current) drug therapy
CPT/HCPCS: 90870; J0330; J2250

== ENCOUNTER → 2025-05-06 05:56 | Outpatient (BNV) | payer BC, SELFPAY | PROVIDERS: PCP Internal Medicine; Visit Provider Psychiatry & Neurology Psychiatry | DX: F33.2 Major depressive disorder, recurrent severe without psychotic features (principal) | CPT/HCPCS: 90870 ==

== ENCOUNTER 2025-05-20 05:55 | Day surgery (SDC) | payer BC, SELFPAY ==
--- OUTSIDE RECORDS SUMMARY | 2025-05-08 13:07 | XMS_ITS | Encounter Summary ---
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 Not on file Not on fi le documented as of this encounter Plan of Treatment Upcoming Encounters Date Type Department Care Team (Late st Contact Info) Description 05/26/2025 4:10 PM EDT Office Visit [facility] [address] [place] [address] Jennifer Posada MD [address] [address] [email or web address] documented as of this encounter Visit Diagnoses Not on filedocumented in this encounter Care Teams Pharmaceutical Detailer Relationship Specialty Start Date End Date Nitesh Rosenberg DO [address] [place] [address] [email or web address] PCP - General 08/16/17 Leydi Carl MD [address] [place] [address] Historical LMR Provider 06/03/17 Nitesh Rosenberg DO [address] [place] [address] [place] [address] [email or web address] Insurance Assigned Provider 11/17/23 documented as of this encounter Additional Source Comments The information contained in this document represents components of the legal health record. It is not the complete legal health record.[facility]
--- OUTSIDE RECORDS SUMMARY | 2025-05-08 13:07 | XMS_ITS | Clinical Summary ---
Author Organization [facility] Address [address] [place] [address] Phone Care Team Providers Care Prop Maker Name Role Phone Leydi Carl MD Unavailable [phone] [place], Nitesh Herman DO Primary Care Provider [phone] Nitesh Rosenberg DO Unavailable Allergies No known [...] Department Care Team Description 02/19/2025 Telephone [facility] [address] [place] [address] Katie Ahmadi, [place]AD[place] 02/19/2025 Telephone [facility] [address] [place] [address] Katie Ahmadi, GUADALUPE 02/18/2025 Refill [facility] [address] [place] [address] Jennifer Posada MD Medication Refill from Last [...] 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 file [...] Office Visit [facility] [address] [place] [address] [place] [address] Jennifer Posada MD 22 [facility], [address] [place] [address] [email or web address] Health Maintenance Due Date Last Done Comments [...] (04/25/2024 8:02 AM EDT) HDL 87 mg/dL [facility] Comment: Interpretation <40 mg/dL: Low HDL cholesterol (major risk factor for CHD) Greater than or equal to 60 mg/dL: High HDL cholesterol ( negative risk factor for CHD) HDL - cholesterol is affected by a number of factors, e.g. smoking, excerise, hormones, sex and age. CHOLESTEROL 173 0 - 240 mg/dL [facility] TRIGLYCERIDES 61 30 - 160 mg/dL [facility] LDL 74 50 - 129 mg/dL [facility] Comment: LDL levels in terms of risk for coronary heart disease: <100 mg/dL: Optimal 100-129 mg/dL: Near or above optimal 130-159 mg/dL: Borderline high 160-189 mg/dL: High >190 mg/dL: Very High CARDIAC RISK RATIO 2.0(L) 3.3 - 4.4 C [facility] Blood 04/25/2024 8:02 AM EDT 04/25/2024 8:07 AM EDT Denise Williamson NP LAB BLOOD ORDERABLES Fi nal Result [address] [address] * Pap Smear (07/29/2020 12:00 AM EST) 07/29/2020 07/30/2020 8:2 7 AM EST Narrative SEE NARRATIVE - 08/03/2020 11:40 AM EST [address] [address] Supervisor Cytology: Kassandra Valerio MD NET C DEVELOPER Cytology Report FINAL DIAGNOSIS A. PAP SMEAR [...] 52, 56, 58, 59, 66, 68) by Network [employer] Onclarity HR-HPV analysis. Clinical correlation is advised. This HPV test was performed at [facility], [address] [place] [address]. This test has been FDA approved for [facility] cervical cytology specimens. The accuracy and precision of this test for all other specimen sources has been verified in the Cytopathology Laboratory of the [facility] and has not been cleared or approved by the U.S. Food and Drug Administration. Clinical correlation is advised. CLINICAL HISTORY Date of Last Menstrual Period: Not Provided Menstrual History: Blanca-Menopausal Contraceptive History: BCPs Other Clinical Conditions: Screening Pap SPECIMEN SOURCE A: PAP SMEAR (SUREPATH) CE Patient Name: RAZA JARRELL : 1970 (Age: 50) Sex: F Institution: [facility] Location: [facility] Date of Collection: 07/29/2020 Date of Reported: 08/03/2020 11:40 Results to: Jennifer Posada MD Jennifer Posada MD CYTOLOGY ORDERABLES Final Result SEE NARRATIVE from Last 3 Months or Most Recently Relevant to Health Maintenance Insurance [facility] PPO EPO [facility] [place] [address] [place] [id number] [place] [address] [place] [address] [place] [address] [place] [address] PPO [place]PO [facility] [place] [address] [place] [address] PPO EPO [facility] PPO EPO Care Teams Prop Maker Relationship Specialty Start Date End Date Nitehs Rosenberg DO [address] [place] [address] [email or web address] PCP - General 08/16/17 Leydi Carl MD [address] [place] [address] Historical LMR Provider 06/03/17 Nitesh Rosenberg DO [address] [place] [address] [email or web address] Insurance Assigned Provider 11/17/23 Additional Source Comments The information contained in this document represents components of the legal health record. It is not the complete legal health record.[facility]
--- OUTSIDE RECORDS SUMMARY | 2025-05-08 13:07 | XMS_ITS | Encounter Summary ---
Author Organization [facility] Address [address] [place] [address] Phone Care Team Providers Care Shipping Track Supervisor Name Role Phone Nitesh Rosenberg DO Unavailable Tati Lovell OUTER DIAMETER TECHNICIAN Unavailable [phone] Imani Schulz CNM Unavailable Leydi Carl MD Unavailable [phone] Brijesh Gonzalez MD Unavailable [phone] Liz Chamberlain OUTER DIAMETER TECHNICIAN Unavailable Nitesh Rosenberg DO Primary Care Provider Nitesh Rosenberg DO Unavailable Encounter Details Date Type Department Care Team (Late st Contact Info) Description 07/29/2020 Procedure Pass [facility], [address] [address] Social History Tobacco Use Types Packs/Day Years [...] 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 Not on file Not on fi le documented as of this encounter Functional Status documented as of this encounter Plan of Treatment Upcoming Encounters Date Type Department Care Team (Late st Contact Info) Description 05/26/2025 4:10 PM EDT Office Visit [facility] [address] [place] [address] [place] [address] Jennifer Posada MD [address] [address] documented as of this encounter Visit Diagnoses Not on filedocumented in this encounter Additional Health Concerns Infection Onset Date Last Indicated Resolved Time Influenza A 08/05/2023 08/05/2023 08/12/2023 1:22 AM EST CoV-Risk 08/05/2023 08/05/2023 08/16/2023 1:23 AM EST documented as of this encounter Care Teams Shipping Track Supervisor Relationship Specialty Start Date End Date Nitesh Rosenberg DO [address] [place] [address] PCP - General 08/16/17 Nitesh Rosenberg DO [address] [place] [address] Historical LMR Provider 06/03/17 08/20/21 Tati Lovell NP [address] [address] Historical LMR Provider 06/03/17 2 Imani Schulz CNM [address] [place] [address] Historical LMR Provider 06/03/17 2 Leydi Carl MD [address] [place] [address] Historical LMR Provider 06/03/17 Brijesh Gonzalez MD [address] [place] [address] Historical LMR Provider 06/03/1708/20/2 2 Liz Chamberlain NP [address] [place] [address] Historical LMR Provider 06/03/17 2 Nitesh Rosenberg DO [address] [place] [address] [email or web address] Insurance Assigned Provider 11/17/23 documented as of this encounter Additional Source Comments The information contained in this document represents components of the legal health record. It is not the complete legal health record.[facility]
--- OUTSIDE RECORDS SUMMARY | 2025-05-08 13:07 | XMS_ITS | Data Portability ---
Author Organization [facility], Telehealth Patient Home Address [address] [place] [address] Assessment Encounter Date Assessment Date Assessment LastModified by Organization Details LastModified Time 08/28/2023 08/28/2023 Patient agreed and verbally consents to this audio and video Telehealth appt via a secure platform [email or web address] Not available 08/28/2023 14:09:09 05/12/2024 05/12/2024 [id number] [place] [id number] (GI TECH) : MDM LOW MUST MEET 2 OF [...] TSH + free T4, serum 2023 024 [facility], [place], [address], 11:34:45 vitamin B12 + folate, serum or blood 2023 024 [facility], [place], [address], 4 11:34:45 ESR (erythrocy te sedimentat ion rate), blood 2023 [facility], [place], [address], 4 14:25:15 C reactive protein, QN, serum or plasma 2023 024 [facility], [place], [address], 4 14:25:15 GIBSON + rf (antinucle ar antibodies + rheumatoid factor), quantitati ve, serum 2023 [facility] [address], [address], 4 11:25:57 cortisol, serum or plasma 2023 024 [facility] [address], [address], 4 14:26:47 PTH (parathyro id hormone), intact, serum or plasma 2023 024 [facility], [place], [address], 4 14:25:15 CMP, serum or plasma 2023 024 [facility], [place], [address], 4 11:34:45 Referral None recorded. Procedures None recorded. Surgeries None recorded. Imaging None recorded. Medication Orders lorazepam 1 mg tablet 2023 [email or web address] [facility], [address], [place], [id number], 4 15:08:08 Seroquel 25 mg tablet [address] [facility]26734, [address], [place], [id number], 4 15:15:35 lorazepam 0.5 mg tablet 2023 024 [facility]014, [address], [place], [id number], 5 13:37:58 hydroxyzin e HCl 25 mg tablet [address] [facility]21873, [address], [place], [id number], 4 15:16:31 Patient TargetsNo targets recorded. Patient InstructionsNo instructions recorded. Reason for Referral None Reported. Results Created Date Observation Date Name Description Value Unit Range Abnormal Flag Note LastModifiedBy Organization Detail LastModifiedTime 03/11/20 24 03/11/2024 CT, head, w/o contr ast No observ ation record ed. [facility] (Medical Records) [address] [place] [address], [address], 03/12/2024 08:51:04 Result Notes None recorded. Problems Name Problem SNOMED Code Status Onset Date Resolution Date Notes Provider Name and Address Organization Details Recorded Time Anxiety 55680055 Active 2017 Not Available [facility] 15:48:18 Colorectal cancer detected by DNA-based stool screening 638237442 Active 2021 MARQUIS GARCIA [address] [place], [address], [facility] 2 09:50:42 Influenza- like symptoms 975053141 Active 2022 MARQUIS GARCIA [address] [place], [address], [facility] 3 10:43:43 Menopause Active 2022 MARQUIS GARCIA [address] [place], [address], [facility] 3 09:50:48 Panic attack 731314241 Active 2022 MARQUIS GARCIA [address] [place] [address], [address], [facility] 3 10:57:41 Restlessne ss and agitation 204344603 Active 2023 MARQUIS GARCIA [address] [place] [address], [address], [facility] 4 16:21:19 Acute urinary tract infection 550217588 Active 2023 MARQUIS GARCIA [address] [place] [address], [address], [facility] 4 12:25:28 Bipolar disorder 43729710 Active 2023 MARQUIS GARCIA [address] [place] [address], [address], [facility] 4 15:34:50 Problem Notes None recorded. Procedures Surgical History Date Name Laterality Status Provider Name and Address Organization Details Recorded Time 04/22/20 18 Most Recent Mammogram completed [facility] 06/11/2019 08:15:51 09/06/19 11 Date of Last Pap Smear completed [facility] 06/11/2019 08:24:48 Remove tonsils and adenoids completed November LLOYD Orellana [address] [place] [address], [address], [facility] 06/11/2019 15:57:52 Imaging Results None recorded. Procedure [...] Not Available Not Available Not Available gabapentin 600 mg tablet TAKE 1 TABLET BY MOUTH THREE TIMES DAILY active Not Available Not Available No t Available doxycycline hyclate 100 mg capsule Take [...] MOUTH 1 TIME A DAY AT BEDTIME 03/31 completed Not Available Not Available Not Available clonazepam 1 mg tablet TAKE 1 TABLET BY MOUTH 1 TIME A DAY AT BEDTIME 05/12 completed Not Available Not Available Not Available olanzapine 10 mg tablet TAKE 1 TABLET BY MOUTH DAILY AT BEDTIME active Not Available Not Available No t Available hydralazine 25 mg tablet TAKE 1 [...] MOUTH 1 TIME A DAY AT BEDTIME 03/31 completed Not Available Not Available Not Available olanzapine 7.5 mg tablet TAKE 1 TABLET BY MOUTH 1 TIME A DAY AT BEDTIME 03/31 completed Not Available Not Available Not Available quetiapine 100 mg tablet TAKE 1 TABLET BY MOUTH DAILY AT BEDTIME 05/12 completed Not Available Not Available Not Available lamotrigine 25 mg tablet TAKE 3 TABLETS BY MOUTH 1 TIME A DAY 01/10 completed Not Available Not Available Not Available propranolol 10 mg tablet TAKE 1 TABLET BY MOUTH THREE TIMES DAILY NEEDED active Not Available Not Available No t Available lorazepam 0.5 mg tablet TAKE 1 [...] 1 CAPSULE BY MOUTH THREE TIMES DAILY 03/31 completed Not Available Not Available Not Available [...] TAKE 1 TABLET BY MOUTH TWICE DAILY IN THE MORNING AND IN THE AFTERNOON active Not Available Not Available No t [...] Not Available Not Available No t Available escitalopra m 10 mg tablet TAKE 1 TABLET BY MOUTH DAILY AT BEDTIME 03/31 completed Not Available Not Available Not Available escitalopra m 20 mg tablet TAKE 1 TABLET BY MOUTH DAILY AT BEDTIME active Not Available Not Available [...] Not Available Not Available Not Available Afluria 4892-1765 (PF) 45 mcg(15 mcg x 3)/0.5 mL [...] in Arterial blood by Pulse oximetry Systolic And Diastolic Provider Name and Address Organization Details Last Updated DateTime 5 170.18 cm 18.2 kg/m2 09863.4 3 g 93 /min 96 % 96 % 112/68 mm[Hg] Roxanne Soriano [facility] 5 13:30:56 Date Recorded Body height Body mass index (BMI) Body weight Heart rate Oxygen saturation Oxygen saturation in Arterial blood by Pulse oximetry Systolic And Diastolic Provider Name and Address Organization Details Last Updated DateTime 4 170.18 cm 18 kg/m2 82420.4 g 87 /min 98 % 98 % 110/70 mm[Hg] Roxanne Drew [facility] 4 15:09:24 Date Recorded Body height Body mass index (BMI) Body weight Heart rate Oxygen saturation Oxygen saturation in Arterial blood by Pulse oximetry Systolic And Diastolic Provider Name and Address Organization Details Last Updated DateTime 5 170.18 cm 18.4 kg/m2 96788.7 4 g 75 /min 97 % 97 % 112/70 mm[Hg] Roxanne Drew [facility] 5 09:52:57 Date Recorded Body height Body mass index (BMI) Body weight Heart rate Oxygen saturation Oxygen saturation in Arterial blood by Pulse oximetry Systolic And Diastolic Provider Name and Address Organization Details Last Updated DateTime 4 170.18 cm 17.2 kg/m2 88589.1 6 g 94 /min 97 % 97 % 130/68 mm[Hg] Nishi Ortega [facility] 4 15:18:57 Social History Question Answer Notes LastModified by [employer] Details LastModified Time Tobacco Smoking Status Never Smoker Not Available [facility] 06/15/2020 03:36:24 What Was The Date Of Your Most Recent Tobacco Screening? 03/31/2025 [email or web address] Information not available 03/31/2025 How Much Tobacco Do You Smoke? No [id number] Information not available 06/15/2020 How Many Years Have You Smoked Tobacco? 0 [id number] Information not available 06/15/2020 Sex: Unknown Functional Status Question Answer Note LastModified by [employer] Details LastModified Time Do you or have you ever used any other forms of tobacco or nicotine? No [email or web address] Information not available 05/12/2024 Do you or have you ever used smokeless tobacco? Never used smokeless tobacco [id number] Information not available 06/15/2020 Do you or have you ever used e-cigarettes or vape? Never used electronic cigarettes [id number] Information not available 06/15/2020 Mental Status None recorded. Family History Relationship Description Onset Age of this Age Resolved Age Notes LastModified by Organization Details LastModified Time Paternal Grandfather Heart disease [email or web address] Not available 06/11 15:56:50 Mother Malignant neoplasm of lung smoker Not available 09:36:51 Medical History No medical history recorded. Gynecological History Statement/Question Response Date of Last Pap Smear 09/06/2010 Most Recent Mammogram 04/22/2018 Obstetrics History GPAL:G 2 P 2 0 0 0 Type Value Full Term 2 Total 2 Immunizations Vaccine Type Date Status Note Provider Nam e and Address Organization Details Recorded Time COVID-19, mRNA, LNP-S, PF, 30 mcg/0.3 mL dose 1 completed MARQUIS GARCIA [address] [place] [address], [address], [facility] 06/26/2021 18:44:50 Influenza, split virus, quadrivalent, preservative 8 [facility] 05/22/2018 10:05:48 influenza, unspecified formulation 4 completed MARQUIS GARCIA [address] [place] [address], [address], [facility] 09/30/2024 13:41:37 Influenza, split virus, quadrivalent, preservative 9 completed Cadence LLOYD Orellana [address] [place] [address], [address], [facility] 06/11/2019 15:51:30 Tdap 7 completed Cadence LLOYD Orellana [address] [place] [address], [address], [facility] 04/09/2018 11:19:19 Past Encounters Encounter ID Performer Location Encounter Start Date Encounter Closed Date Diagnosis/Indication Diagnosis SNOMED-CT Code Diagnosis ICD10 Code Diagnosis IMO Codes Diagnosis Note [id number] Nitesh Rosenberg [facility] [address] [facility], [address] [place] [address] 04/09/2018 10:58:46 04/09/2018 11:48:08 Adult health examination 177030866 Z00.01 fasting labs reviewed and are all normal Microscopic hematuria 19 6132498 R31.21 has had neg urologic work up in past Anxiety 72953243 F41.9 paroxetine works well, has tried to taper off, but didn't tolerate Abdominal bloating 72288 9008 R14.0 ? IBS consider FODMAPS diet Abdominal pain 42695144 R10.9 [id number] Nitesh Rosenberg [facility] [address] [facility], [address] [facility] [place] [address] 09/18/2018 15:46:37 09/18/2018 16:35:43 Perioral dermatitis 889267322 L71.0 avoid all products trial coconut oil will trial doxy as well [id number] Nitesh Rosenberg [facility] [address] [facility], [place] [address] 06/11/2019 15:37:33 06/11/2019 16:09:25 Adult health examination 752064492 Z00.00 Active or passive immunization 570950101 Z23 UTD Anxiety 67246895 F41.9 paroxetine works well, has tried to taper off, but didn't tolerate Vitamin D deficiency 347 78073 E55.9 Microscopic hematuria 19 8458850 R31.21 has had neg urologic work up in past [id number] Nitesh Rosenberg [facility] [address] [facility], [place] [address] 06/14/2020 15:37:36 06/14/2020 16:25:51 Anxiety 61771096 F41.9 Adult heal th examination 041545739 Z00.00 BP excellent today all concerns addressed Thoracic back pain 99925 8004 M54.6 will start with XR Low back pain 955078522 M54.5 will start with XR Screening for cardiovascular system disease 785336117 Z13.6 needs [id number] Nitesh Rosenberg [facility] [address] [facility] [address] 10/24/2021 15:51:14 10/25/2021 11:35:00 Anxiety 13171084 F41.1 stablewill send in refill Adult [facility] examination 444831000 Z00.00 BP excellent today all concerns addressed [id number] Nitesh Rosenberg [facility] [address] [facility] [address] [address] 09/22/2022 09:39:50 09/22/2022 16:32:53 Influenza-like symptoms 018234120 R68.89 will see who has it in stock [id number] Nitesh Rosenberg [facility] [address] [facility] [address] 01/29/2023 09:26:52 01/29/2023 11:38:09 Active or passive immunization 208692235 Z23 up to date Adult [facility] examination 515065657 Z00.00 BP excellent today all concerns addressed Menopause 455444992 N95. 1 seeing GYNwill suggest HRT Anxiety 21628928 F41.1 stablewill send in refill of the increased dosage [id number] Nitesh Rosenberg [facility] [address] [facility], [address] [place] [address] 07/10/2023 13:59:24 07/11/2023 08:09:49 Acute bronchitis 14613076 J20.8 will start on a prednisone taperconti nue exporant and fluidscont inue with rest [id number] Nitesh Rosenberg [facility] [address] [facility] [address] 08/10/2023 09:15:09 08/14/2023 09:58:18 Anxiety 76035649 F41.1 will up to 50 mg, hopefully will be able to drop it back down Panic attack 422268313 F 41.0 [id number] Nitesh Rosenberg [facility] [address] [facility] [address] 08/21/2023 16:30:40 08/22/2023 08:58:06 Panic attack 582253218 F41.0 started on seroquelwi ll fu tomorrow Restlessne ss and agitation 664544634 R45.1 fu tomorrow [id number] Nitesh Rosenberg [facility] [address] [facility] [address] 08/28/2023 09:51:15 08/29/2023 08:39:51 Anxiety 68626383 F41.1 will up to 50 mg, hopefully will be able to drop it back down Panic attack 185798588 F 41.0 continue 25 mg of seroquel Restlessne ss and agitation 092346798 R45.1 continue 25 mg seroquel [id number] Nitesh Rosenberg [facility] [address] [facility] [address] 01/11/2024 14:55:00 01/11/2024 15:59:23 Anxiety 02832857 F41.1 will up to 50 mg, hopefully will be able to drop it back down Bipolar disorder 7251649 4 F31.10 working with GI TECH for medication s [id number] Nitesh Rosenberg [facility] [address] [facility] [address] [place] [address] 05/12/2024 14:56:47 05/12/2024 15:45:14 Pre-surgery evaluation 794545527 Z01.818 .per the 2019 ACC cardiac risk stratifica tion , this patient is cleared for the proposed ECT therapy . [id number] Nitesh Rosenberg [facility] [address] [facility] [address] [place] [address] 09/30/2024 13:19:50 09/30/2024 13:54:17 Anxiety 85907557 F41.1 follows with psych Bipolar disorder 7153842 4 F31.10 follows with psych Pre-surger y evaluation 316978961 Z01.818 patient cleared for ECT treatments [id number] Nitesh Rosenberg [facility] [address] [facility] [address] [place] [address] 03/31/2025 09:36:34 03/31/2025 14:46:37 Bipolar disorder 25174684 F31.10 follows with liseth be going the ECT again Preoperative state 11955 002 Z01.818 [id number] patient cleared for ECT treatments Health Concerns Section Related Observation LastModified by Organization Detai ls LastModified Time None Recorded Concern Status LastModified by Organization Details LastModified Time None Recorded Advance Directives Directive None Recorded Payers Insurance Date Sequence Insurance Name Policy Number Policy Martinez Covered Member ID Martinez Member ID Guarantor Name 03/31/2025 1 [place] [id number] Vicki Contreras [id number] Vicki Contreras 03/31/2025 1 [place] [facility] [id number] Vicki Contreras [id number] Vicki Contreras Notes Date Note Type Note Provider Name a nd Address Organization Details Recorded Time 4 text/html ROS as noted in the HPI c/o anxiety/mental health crisis The patient is participating in this appointment via telemedicine communication with a phone call/video calling service ([employer])The patient consents to use of these platforms [...] break through flare ups MARQUIS GARCIA [address] [place], [address], [facility] 08/28/2023 14:35:26 4 text/html hospital d/c the patient reports MARQUIS GARCIA [address] [place], [address], [facility] 01/11/2024 15:42:40 4 text/html ROS as noted in the HPI here for rechk and is in need of medical clearancehas been getting ECT therapy and requires clearance to go further Nitesh Rosenberg DO [address] [place], [address], [facility] 05/12/2024 15:42:16 5 text/html ROS as noted in the HPI f/u review for clearance for ECT treatment [...] what she is currently taking MARQUIS GARCIA [address] [place], [address], [facility] 09/30/2024 13:52:55 5 text/html Pre-OpReported by PatientHPIFor severity, patient reportsmoderate. For risk factors, patient reportsno cognitive impairment,no functional impairment,no malnutrition,no frailty,able to climb a flight of stairs (exercise capacity>4 mets),no obstructive sleep apnea,non-smoker,no alcohol misuse,no illicit drug use,no chronic cardiopulmonary condition, andnot obese. For anesthesia hx, patient reportsno hx of anesthesia complications,no allergy to anesthetic agents, andno family history of anesthesia complications. For functional ability, patient reportsable to walk up stairs. For post-op support, patient reportsadequate assistance at home. For surgery to be performed, (ect).ROS as noted in the HPI BP is excellent the patient has a f/u with the STRIP ROLLER in May (sees Dr. Posada at [place] [facility]) to discuss the HRT A0x3 MARQUIS GARCIA [address] [place] [address], [place], [address], [place] [facility] 03/31/2025 12:00:56 OBGyn Episode No OBEpisode recorded.
--- OUTSIDE RECORDS SUMMARY | 2025-05-08 13:07 | XMS_ITS | Encounter Summary ---
Author Organization [facility] Address [address] [place] [address] Phone Care Team Providers Care Auto Painter Name Role Phone Nitesh Rosenberg DO Unavailable Tati Lovell SUPERVISOR ENGRAVING Unavailable Imani Schulz CNM Unavailable Leydi Carl MD Unavailable [phone] Brijesh Gonzalez MD Unavailable [phone] Liz Chamberlain SUPERVISOR ENGRAVING Unavailable Nitesh Rosenberg DO Primary Care Provider Nitesh Rosenberg DO Unavailable Encounter Details Date Type Department Care Team (Late st Contact Info) Description 03/19/2018 Ancillary Orders Virtual Department [address] [place] [address] Nitesh Rosenberg DO [address] [place] [address] Breast screening Social History Tobacco Use Types [...] 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, [address] [place] [address] documented as of this encounter Results * [...] and compared with multiple prior studies, most uktjoode84/17/2017 and 04/09/2017, with utilization of computer-aided detection. [...] as of this encounter Care Teams Auto Painter Relationship Specialty Start Date End Date Nitesh Rosenberg DO [address] [place] [address] PCP - General 08/16/17 Nitesh Rosenberg DO [address] [place] [address] Historical LMR Provider 06/03/17 08/20/21 Tati Lovell NP [address] [address] Historical LMR Provider 06/03/17 2 Imani Schulz CNM [address] [place] [address] Historical LMR Provider 06/03/17 2 Leydi Carl MD [address] [place] [address] Historical LMR Provider 06/03/17 Briejsh Gonzalez MD [address] [place] [address] Historical LMR Provider 06/03/17 2 Liz Chamberlain NP [address] [place] [address] Historical LMR Provider 06/03/17 2 Nitesh Rosenberg DO [address] [place] [address] [email or web address] Insurance Assigned Provider 11/17/23 documented as of this encounter Additional Source Comments The information contained in this document represents components of the legal health record. It is not the complete legal health record.[facility]
--- OUTSIDE RECORDS SUMMARY | 2025-05-08 13:07 | XMS_ITS | Encounter Summary ---
Author Organization [facility] Address [address] [place] [address] Phone Care Team Providers Care Auto Bumper Mechanic Name Role Phone Leydi Carl MD Unavailable [phone] Nitesh Rosenberg DO Primary Care Provider [phone] Nitesh Rosenberg DO Unavailable Encounter Details Date Type Department Care Team (Late st Contact Info) Description 05/07/2024 Transcribe Orders [facility] Specimen Processing [address] [place] [address] Nitesh Rosenberg DO [address] [facility] [place] [address] [email or web address] Social History Tobacco [...] 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 Not on file Not on fi le documented as of this encounter Plan of Treatment Upcoming Encounters Date Type Department Care Team (Late st Contact Info) Description 05/26/2025 4:10 PM EDT Office Visit [facility] [address] [place] [address] Jennifer Posada MD [address] [address] documented as of this encounter Visit Diagnoses Not on filedocumented in this encounter Care Teams Auto Bumper Mechanic Relationship Specialty Start Date End Date Nitesh Rosenberg DO [address] [place] [address] PCP - General 08/16/17 Leydi Carl MD [address] [place] [address] Historical LMR Provider 06/03/17 Nitesh Rosenberg DO [address] [place] [address] [place] [address] Insurance Assigned Provider 11/17/23 documented as of this encounter Additional Source Comments The information contained in this document represents components of the legal health record. It is not the complete legal health record.[facility]
--- OUTSIDE RECORDS SUMMARY | 2025-05-08 13:07 | XMS_ITS | Encounter Summary ---
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 Not on file Not on fi le documented as of this encounter Plan of Treatment Upcoming Encounters Date Type Department Care Team (Late st Contact Info) Description 05/26/2025 4:10 PM EDT Office Visit [facility] [address] [place] [address] [place] [address] Jennifer Posada MD 22 [facility], [address] [place], [place] [id number] [email or web address] documented as of this encounter Visit Diagnoses Not on filedocumented in this encounter Additional Health Concerns Infection Onset Date Last Indicated Resolved Time Influenza A 08/05/2023 08/05/2023 08/12/2023 1:22 AM EST CoV-Risk 08/05/2023 08/05/2023 08/16/2023 1:23 AM EST documented as of this encounter Care Teams Mobile Mechanic Relationship Specialty Start Date End Date Nitesh Rosenberg DO [address] [place] [address] [email or web address] PCP - General 08/16/17 Leydi Carl MD [address] [place] [address] Historical LMR Provider 06/03/17 Nitesh Rosenberg DO [address] [place] [address] [email or web address] Insurance Assigned Provider 11/17/23 documented as of this encounter Additional Source Comments The information contained in this document represents components of the legal health record. It is not the complete legal health record.[facility]
--- OUTSIDE RECORDS SUMMARY | 2025-05-08 13:07 | XMS_ITS | Encounter Summary ---
Author Organization [facility] Address [address] [place] [address] Phone Care Team Providers Care Commercial Loan Manager Name Role Phone Chet Nitesh Herman DO Unavailable Tati Lovell CANINE SERVICE TEACHER Unavailable [phone] Imani Schulz CNM Unavailable Leydi Carl MD Unavailable [phone] Brijesh Gonzalez MD Unavailable [phone] Liz Chamberlain CANINE SERVICE TEACHER Unavailable Nitesh Rosenberg DO Primary Care Provider [phone] Nitesh Rosenberg DO Unavailable Encounter Details Date Type Department Care Team (Latest Contact Info) Description 04/09/2018 Transcribe Orders [facility] [address] [place] [address] Cadence Orellana PA-C 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 Not on file Not on fi le documented as of this encounter Plan of Treatment Upcoming Encounters Date Type Department Care Team (Late st Contact Info) Description 05/26/2025 4:10 PM EDT Office Visit [facility] [address] [place] [address] Jennifer Posada MD 22 [facility], [address] [place] [address] [email or web address] documented as of this encounter Results * Gliadin deamidated antibody, IgG/IgA (04/09/2018 11:53 AM EDT) Gliadin Ab, IGA <10.0 <20.0 (Negative) U [facility] DPT OF LAB MED AND PAT+ GLIADIN AB IGG <10.0 <20.0 (Negative) U [facility] DPT OF LAB MED AND PAT+ Blood 04/09/2018 11:5 3 AM EDT 04/09/2018 12:12 PM EDT November Reyna [facility] LAB BLOOD ORDERABLES Final R esult Performing Organization Address City/[facility]/ZIP Co de Phone Number [facility] DPT OF LAB MED AND PAT+ [address] [place] [address] * Tissue transglutaminase IgA (04/09/2018 11:53 AM EDT) TTG IGA ANTIBODY <1.2 <4.0 (Negative) U/mL [facility] DPT OF LAB MED AND PAT+ Blood 04/09/2018 11:5 3 AM EDT 04/09/2018 12:12 PM EDT November Reyna [facility] LAB BLOOD ORDERABLES Final R esult Performing Organization Address City/[facility]/ZIP Co de Phone Number [facility] DPT OF LAB MED AND PAT+ [address] [place] [address] documented in this encounter Visit Diagnoses Diagnosis Stomach ache- Primary Dyspepsia and other specified disorders of function of stomach documented in this encounter Additional Health Concerns Infection Onset Date Last Indicated Resolved Time Influenza A 08/05/2023 08/05/2023 08/12/2023 1:22 AM EST CoV-Risk 08/05/2023 08/05/2023 08/16/2023 1:23 AM EST documented as of this encounter Care Teams Commercial Loan Manager Relationship Specialty Start Date End Date Nitesh Rosenberg DO [address] [place] [address] PCP - General 08/16/17 Nitesh Rosenberg DO [address] [place] [address] Historical LMR Provider 06/03/17 08/20/21 Tati Lovell NP [address] [address] Historical LMR Provider 06/03/17 2 Imani Schulz CNM [address] [place] [address] Historical LMR Provider 06/03/17 2 Leydi Carl MD [address] [place] [address] Historical LMR Provider 06/03/17 Brijesh Gonzalez MD [address] [place] [address] Historical LMR Provider 06/03/17 2 Liz Chamberlain NP [address] [place] [address] Historical LMR Provider 06/03/17 2 Nitesh Rosenberg DO [address] [place] [address] [email or web address] Insurance Assigned Provider 11/17/23 documented as of this encounter Additional Source Comments The information contained in this document represents components of the legal health record. It is not the complete legal health record.[facility]
--- OUTSIDE RECORDS SUMMARY | 2025-05-08 13:08 | XMS_ITS | Encounter Summary ---
Author Organization [facility] Address [address] [place] [address] Phone Care Team Providers Care Blueprint Blocker Name Role Phone Leydi Carl MD Unavailable [phone] BigNitesh lino DO Primary Care Provider [phone] Nitesh Rosenberg DO Unavailable Encounter Details Date Type Department Care Team (Late st Contact Info) Description 05/15/2024 Ancillary Orders 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 Not on fi le documented as of this encounter Plan of Treatment Upcoming Encounters Date Type Department Care Team (Late st Contact Info) Description 05/26/2025 4:10 PM EDT Office Visit [facility] [address] [place] [address] Jennifer Posada MD 22 [facility], [address] [place] [address] documented as of this encounter Results * [...] unspecified documented in this encounter Care Teams Blueprint Blocker Relationship Specialty Start Date End Date Nitesh Rosenberg DO [address] [place] [address] PCP - General 08/16/17 Leydi Carl MD [address] [place] [address] Historical LMR Provider 06/03/17 Nitesh Rosenberg DO [address] [place] [address] [email or web address] Insurance Assigned Provider 11/17/23 documented as of this encounter Additional Source Comments The information contained in this document represents components of the legal health record. It is not the complete legal health record.[facility]
--- OUTSIDE RECORDS SUMMARY | 2025-05-08 13:08 | XMS_ITS | Encounter Summary ---
Author Organization [facility] Address [address] [place] [address] Phone Care Team Providers Care Director Of Customer Service Name Role Phone Chet Nitesh Herman DO Unavailable Tati Lovell PIPE ORGAN TUNER AND REPAIRER Unavailable Imani Schulz CNM Unavailable Leydi Carl MD Unavailable [phone] Brijesh Gonzalez MD Unavailable [phone] Liz Chamberlain PIPE ORGAN TUNER AND REPAIRER Unavailable Nitesh Rosenberg DO Primary Care Provider [phone] Nitesh Rosenberg DO Unavailable Encounter Details Date Type Department Care Team (Late st Contact Info) Description 06/16/2020 Ancillary Orders Virtual Department [address] [place] [address] Keira Alonso PA [address] [place] [address] [place] [address] Low back pain, unspecified back pain laterality, [...] 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 Not on file Not on fi le documented as of this encounter Plan of Treatment Upcoming Encounters Date Type Department Care Team (Late st Contact Info) Description 05/26/2025 4:10 PM EDT Office Visit [facility] [address] [place] [address] Jennifer Posada MD 22 [facility], [address] [place] [address] [email or web address] documented as of this encounter Results * [...] of this encounter Care Teams Director Of Customer Service Relationship Specialty Start Date End Date Nitesh Rosenberg DO [address] [place] [address] PCP - General 08/16/17 Nitesh Rosenberg DO [address] [place] [address] Historical LMR Provider 06/03/17 08/20/21 Tati Lovell NP [address] [address] Historical LMR Provider 06/03/17 2 Imani Schulz CNM 30 [place] [address] Historical LMR Provider 06/03/17 2 Leydi Carl MD [address] [place] [address] Historical LMR Provider 06/03/17 Brijesh Gonzalez MD 61 [place] [address] Historical LMR Provider 06/03/17 2 Liz Chamberlain NP [address] [place] [address] Historical LMR Provider 06/03/17 2 Nitesh Rosenberg DO [address] [place] [address] [email or web address] Insurance Assigned Provider 11/17/23 documented as of this encounter Additional Source Comments The information contained in this document represents components of the legal health record. It is not the complete legal health record.[facility]
--- OUTSIDE RECORDS SUMMARY | 2025-05-08 13:08 | XMS_ITS | Encounter Summary ---
Author Organization [facility] Address [address] [place] [address] Phone Care Team Providers Care Geospatial Analyst Name Role Phone Chet Nitesh Herman DO Unavailable Tati Lovell AUDIOVISUAL LIBRARIAN Unavailable Imani Schulz CNM Unavailable Leydi Carl MD Unavailable [phone] Brijesh Gonzalez MD Unavailable [phone] Liz Chamberlain AUDIOVISUAL LIBRARIAN Unavailable Nitesh Rosenberg DO Primary Care Provider [phone] Nitesh Rosenberg DO Unavailable Encounter Details Date Type Department Care Team (Latest Contact Info) Description 06/17/2019 Transcribe Orders [facility] 12 [place] [address] Cadence Orellana PA-C 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 Not on fi le documented as of this encounter Plan of Treatment Upcoming Encounters Date Type Department Care Team (Late st Contact Info) Description 05/26/2025 4:10 PM EDT Office Visit [facility] [address] [place] [address] Jennifer Posada MD 22 [facility], [address] [place] [address] [email or web address] documented as of this encounter Results * 25-OH vitamin D (06/17/2019 7:38 AM EST) 25 [place] VIT D (TOTAL) 42 30 - 60 ng/mL [facility] Blood 06/17/2019 7:38 AM EST 06/17/2019 8:08 AM EST November Reyna [facility] LAB BLOOD ORDERABLES Final R esult [facility] [address] [place] [address] * (ABNORMAL) CBC and differential (06/17/2019 7:38 AM EST) WBC 7.90 3.40 - 11.20 K/uL [facility] RBC 4.20 3.80 - 4.80 M/uL [facility] HGB 13.6 12.0 - 15.0 g/dL [facility] HCT 40.2 36.0 - 46.0 % [facility] PLT 273 130 - 400 K/uL [facility] MCV 95.7 79.0 - 98.0 fL [facility] MCH 32.4 27.0 - 34.8 pg [facility] MCHC 33.8 31.5 - 36.0 g/dL [facility] RDW 12.1 10.8 - 14.6 % [facility] MPV 9.3(L) 9.4 - 12.4 fl [facility] NRBC 0.00 0.00 /100 WBCs [facility] ABSOLUTE NRBC 0.00 0.00 K/uL [facility] DIFF METHOD Auto [facility] NEUTS 68.7 45.30 - 77.70 % [facility] LYMPHS 20.5 12.30 - 39.70 % [facility] MONOS 7.0 4.10 - 12.80 % [facility] EOS 2.2 0 - 7.2 % [facility] BASOS 1.3 0 - 2.80 % [facility] Granulocytes, immature (%) 0.3 0.0 - 0.9 % [facility] ABSOLUTE NEUTS 5.44 1.40 - 7.70 K/uL [facility] ABSOLUTE LYMPHS 1.62 0.60 - 3.20 K/uL [facility] ABSOLUTE MONOS 0.55 0.11 - 0.59 K/uL [facility] ABSOLUTE EOS 0.17 0.01 - 0.50 K/uL [facility] ABSOLUTE BASOS 0.10(H) 0.00 - 0.08 K/uL [facility] Granulocytes, immature 0.02 0.00 - 0.05 K/uL [facility] Blood 06/17/2019 7:38 AM EST 06/17/2019 8:08 AM EST November Reyna [facility] LAB BLOOD ORDERABLES Final R esult Performing Organization Address City/State/[facility] Co de Phone Number [address] [address] * (ABNORMAL) Lipid panel (06/17/2019 7:38 AM EST) HDL 68 mg/dL [facility] Comment: Interpretation <40 mg/dL: Low HDL cholesterol (major risk factor for CHD) Greater than or equal to 60 mg/dL: High HDL cholesterol ( negative risk factor for CHD) HDL - cholesterol is affected by a number of factors, e.g. smoking, excerise, hormones, sex and age. CHOLESTEROL 148 0 - 240 mg/dL [facility] TRIGLYCERIDES 105 30 - 160 mg/dL [facility] LDL 59 50 - 129 mg/dL [facility] Comment: LDL levels in terms of risk for coronary heart disease: <100 mg/dL: Optimal 100-129 mg/dL: Near or above optimal 130-159 mg/dL: Borderline high 160-189 mg/dL: High >190 mg/dL: Very High CARDIAC RISK RATIO 2.2(L) 3.3 - 4.4 C [facility] Blood 06/17/2019 7:38 AM EST 06/17/2019 8:08 AM EST November Reyna [facility] LAB BLOOD ORDERABLES Final R esult [facility] [address] [place] [address] * Comprehensive metabolic panel (06/17/2019 7:38 AM EST) SODIUM 141 133 - 146 mmol/L [facility] POTASSIUM 4.2 3.3 - 5.1 mmol/L [facility] CHLORIDE 104 96 - 108 mmol/L [facility] CO2 26 21 - 35 mmol/L [facility] BUN 10 6 - 19 mg/dL [facility] CREATININE 0.60 0.5 - 1.5 mg/dL [facility] GLUCOSE 91 70 - 99 mg/dL [facility] ALBUMIN 4.1 3.9 - 4.8 g/dL [facility] TOTAL PROTEIN 6.7 6.5 - 8.0 g/dL [facility] CALCIUM 9.4 8.4 - 10.3 mg/dL [facility] ALKALINE PHOSPHATASE 46 39 - 117 U/L [facility] TOTAL BILIRUBIN 0.5 0.0 - 1.2 mg/dL [facility] AST 21 0 - 37 U/L [facility] ALT 12 0 - 40 U/L [facility] GLOBULIN 2.6 1 - 4.8 g/dL [facility] EGFR 107 >59 mL/min/1.7 3m2 [facility] Comment:If patient is black, multiply result by 1.159. Estimated glomerular filtration rate calculated using the CKD-EPI equation. ANION GAP 15 10 - 20 mmol/L [facility] Blood 06/17/2019 7:38 AM EST 06/17/2019 8:08 AM EST November Reyna [facility] LAB BLOOD ORDERABLES Final R esult [address] [address] documented in this encounter Visit Diagnoses Diagnosis Routine general medical examination at a health care facility- Primary Avitaminosis D Unspecified vitamin D deficiency documented in this encounter Additional Health Concerns Infection Onset Date Last Indicated Resolved Time Influenza A 08/05/2023 08/05/2023 08/12/2023 1:22 AM EST CoV-Risk 08/05/2023 08/05/2023 08/16/2023 1:23 AM EST documented as of this encounter Care Teams Geospatial Analyst Relationship Specialty Start Date End Date Nitesh Rosenberg DO [address] [place] [address] PCP - General 08/16/17 Nitesh Rosenberg DO [address] [place] [address] Historical LMR Provider 06/03/17 08/20/21 Tati Lovell NP [address] [place] [address] Historical LMR Provider 06/03/17 2 Imani Schulz CNM 30 [place] [address] Historical LMR Provider 06/03/17 2 Leydi Carl MD [address] [place] [address] Historical LMR Provider 06/03/17 Brijesh Gonzalez MD [address] [place] [address] Historical LMR Provider 06/03/17 2 Liz Chamberlain NP [address] [place] [address] Historical LMR Provider 06/03/17 2 Nitesh Rosenberg DO [address] [place] [address] [email or web address] Insurance Assigned Provider 11/17/23 documented as of this encounter Additional Source Comments The information contained in this document represents components of the legal health record. It is not the complete legal health record.[facility]
--- OUTSIDE RECORDS SUMMARY | 2025-05-08 13:08 | XMS_ITS | Encounter Summary ---
Author Organization [facility] Address [address] [place] [address] Phone Care Team Providers Care Suction Plate Carrier Cleaner Name Role Phone Chet Nitesh Herman DO Unavailable Tati Lovell DIRECT MARKETING ANALYST Unavailable Imani Schulz CNM Unavailable Leydi Carl MD Unavailable [phone] Brijesh Gonzalez MD Unavailable [phone] Liz Chamberlain DIRECT MARKETING ANALYST Unavailable Nitesh Rosenberg DO Primary Care Provider [phone] Nitesh Rosenberg DO Unavailable Encounter Details Date Type Department Care Team (Latest Contact Info) Description 06/16/2020 Transcribe Orders Virtual Department 30 [place] [address] Keira Alonso PA [address] [place] [address] [place] [address] Thoracic spine pain (Primary Dx) Social History [...] 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 Not on file Not on fi le documented as of this encounter Plan of Treatment Upcoming Encounters Date Type Department Care Team (Late st Contact Info) Description 05/26/2025 4:10 PM EDT Office Visit [facility] [address] [place] [address] Jennifer Posada MD 22 [facility], [address] [place] [address] documented as of this encounter Results * [...] documented as of this encounter Care Teams Suction Plate Carrier Cleaner Relationship Specialty Start Date End Date Nitesh Rosenberg DO [address] [place] [address] PCP - General 08/16/17 Nitesh Rosenberg DO [address] [place] [address] Historical LMR Provider 06/03/17 08/20/21 Tati Lovell NP [address] [address] Historical LMR Provider 06/03/17 2 Imani Schulz CNM 30 [place] [address] Historical LMR Provider 06/03/17 2 Leydi Carl MD [address] [place] [address] Historical LMR Provider 06/03/17 Brijesh Gonzalez MD [address] [place] [address] Historical LMR Provider 06/03/17 2 Liz Chamberlain NP [address] [place] [address] Historical LMR Provider 06/03/17 2 Nitesh Rosenberg DO [address] [place] [address] [email or web address] Insurance Assigned Provider 11/17/23 documented as of this encounter Additional Source Comments The information contained in this document represents components of the legal health record. It is not the complete legal health record.[facility]
--- OUTSIDE RECORDS SUMMARY | 2025-05-08 13:08 | XMS_ITS | Encounter Summary ---
Author Organization [facility] Address [address] [place] [address] Phone Care Team Providers Care Gasket Notcher Name Role Phone Leydi Carl MD Unavailable [phone] Nitesh Rosenberg DO Primary Care Provider [phone] Nitesh Rosenberg DO Unavailable Encounter Details Date Type Department Care Team (Late st Contact Info) Description 01/31/2024 Procedure Pass [facility], [facility] [address] [place] [address] Social History Tobacco Use Types Packs/Day Years [...] Visit [facility] [address] [place] [address] Jennifer Posada MD [address] [address] [email or web address] documented as of this encounter Visit Diagnoses Not on filedocumented in this encounter Care Teams Gasket Notcher Relationship Specialty Start Date End Date Nitesh Rosenberg DO [address] [place] [address] [email or web address] PCP - General 08/16/17 Leydi Carl MD [address] [place] [address] Historical LMR Provider 06/03/17 Nitesh Rosenberg DO [address] [place] [address] [place] [address] [email or web address] Insurance Assigned Provider 11/17/23 documented as of this encounter Additional Source Comments The information contained in this document represents components of the legal health record. It is not the complete legal health record.[facility]
[2025-05-20 06:19] VITALS: BP 98/66; PULSE 78; RESP 16; TEMP 36.9; O2SAT 100; BMI 18.9
--- NOTE | 2025-05-20 06:41 | HO.ANESPROP2 ---
[facility] Active Problems Active Problems: All Active Problems (Updated 07/07/24 @ 10:59 by Prasanna Cancino MD) 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 (Acute) Bipolar 1 disorder, depressed, severe (Acute) Cognitive and behavioral changes (Acute) Other anxiety states (Acute) Bipolar affective, mixed, severe (Acute) Akathisia (Acute) Panic attacks (Acute) Anxiety (Acute) Past Medical History Medical History Menopause Routine medical exam Bipolar affective, mixed, severe Akathisia Panic attacks Anxiety No known health problems Family History Family history of problems with anesthesia: No Surgical History History of Problems with Anesthesia: No Social History Social History Household Members: Spouse Household Members Other:: Housing: House Are you a primary health care specialist to a significant other at home: No Do you presently have visiting nurse or other home services: No Alcohol intake: current Alcohol intake frequency: does not drink Alcohol type: wine Patient Tobacco Use Status: Never used Tobacco e-Cigarette/Vaping Use: Never Used Second Hand Smoke Exposure: No Advance Directives: No Advance Directives Information Provided: Yes service: No Sexual orientation: Straight/Heterosexual Meds Allergies Allergy/AdvReac Type Severity Reaction Status Date / Time No Known Allergies Allergy Verified 03/11/24 14:49 Home Medications ?Medication ?Instructions ?Recorded ?Confirmed ?Last Taken ?Type estradiol 0.0375 mg/24 hr 1 patch topical 2XW 03/11/24 03/11/24 03/11/24 History semiweekly transdermal patch progesterone micronized 100 mg 100 mg PO DAILY 03/11/24 03/11/24 03/11/24 History capsule gabapentin 300 mg capsule 300 mg PO 3XD 10/23/24 10/23/24 Unknown History olanzapine 2.5 mg tablet 2.5 mg PO BEDTIME 10/23/24 10/23/24 Unknown History Exam Height,Weight and Vital Signs: Height 5 ft 6 in Weight 53.07 kg Last Vital Signs Temp 98.4 F 05/20/25 06:19 Pulse 78 05/20/25 06:19 Resp 16 05/20/25 06:19 BP 98/66 05/20/25 06:19 Pulse Ox 100 05/20/25 06:19 O2 Del Method Room Air 05/20/25 06:19 Airway Mallampati Class: II TM Dist: >3cm Neck ROM: Full Heart: rrr Lungs: cta Assessment and Plan Assessment Anesthesia Assessment: Anesthesia Plan Discussed and Chart Reviewed Final Anesthetic Review Family History of Problems with Anesthesia: No History of Problems with Anesthesia: No NPO: Yes ASA Class: III Final Preanesthetic Review: No Changes in Pt Med Stat and Meds/Allgs Chart Reviewed Patient Risk: Intermediate Procedure Risk: Intermediate Anesthetic Plan Anesthetic Plan: GA Disposition: Standard PACU
[2025-05-20] MEDS: Lactated Ringers 1,000 ML 50 ML IVCONT (06:53)
--- NOTE | 2025-05-20 07:02 | MHC.SHP ---
Pre-Procedural Eval Section A - 24 Hr Update-Section A only Date of Service: 05/20/25 The patient is an INPATIENT: No Section B - Complete if H&P > 30 days Chief Complaint: depression Details of Present Illness: pt has been doing well no c/o side effects Relevant Social History: None Present Medications: see Short Stay Collaborative assessment Allergies: Allergies Allergy/AdvReac Type Severity Reaction Status Date / Time No Known Allergies Allergy Verified 03/11/24 14:49 Review of Systems Sugical H&P ROS: Negative: Constitution, Cardiovascular, Respiratory and Neurological and Yes, Specify: Psychiatric (mild obsessional sx) Exam Surgical H&P Exam: Normal: HEENT, Normal: Lungs, Normal: Extremities and Normal: Neurological Plan Diagnosis/Plan: Unchanged I have reviewed the history and physical and performed a pertinent physical examination on my patient. No changes have occurred unless specified. Time Spent With Patient Time: Total time managing care of this patient today ____ minutes.
--- NOTE | 2025-05-20 07:18 | HO.ECTPROC ---
ECT Procedure Note Diagnosis/Treatment Date of Service: 05/20/25 Diagnosis: Major Depressive Disorder Previous ECT Date: 05/06/25 Current Treatment Number: 9 Treatment: Series Interval Clinical Notes: pt cont to feel quite well attention and fx have normalized sees dr lanier pleasant full affect mild st memory s/e Time: Total time managing care of this patient today ____ minutes. ECT Settings Device: THYMATRON DGx Electrode Placement: Right Unilateral Program/Pulse Width: 0.25 Energy Percent: 100 Seizure Duration By EEG (in seconds): 54 Medications Administration General Anesthetic: Etomidate (14) Muscle Relaxant: Succinylcholine (80) Ancillary Medications Miscillaneous Medications: Midazolam (2) Airway Management Airway Management: Bag Mask Ventilation Treatment Recommendations No Changes Recommended: No change Electrode Placement: Right Unilateral Program/Pulse Width: 0.25 Energy Percent: 100 Notes: f/u 3 wks pt to call if relapse sx Pt Tolerated Procedure w/o Issue: Yes
[2025-05-20 07:23] VITALS: BP 94/65; PULSE 66; RESP 12; TEMP 36.6; O2SAT 100
[2025-05-20 07:28] VITALS: BP 99/67; PULSE 73; RESP 12; O2SAT 100
[2025-05-20 07:33] VITALS: BP 108/71; PULSE 75; RESP 13; O2SAT 100
[2025-05-20 07:38] VITALS: BP 103/73; PULSE 74; RESP 13; O2SAT 100
[2025-05-20 07:53] VITALS: BP 108/73; PULSE 73; RESP 20; TEMP 36.9; O2SAT 100
== END 2025-05-20 08:16 | disposition home or self-care (01) ==
PROVIDERS: PCP Internal Medicine; Visit Provider Psychiatry & Neurology Psychiatry
PROC: (CPT 90870; principal; 2025-05-20 07:00)
DX: F33.2 Major depressive disorder, recurrent severe without psychotic features (principal); F41.9 Anxiety disorder, unspecified; F41.0 Panic disorder [episodic paroxysmal anxiety]; Z79.899 Other long term (current) drug therapy
CPT/HCPCS: 90870; J0330; J2250

== ENCOUNTER → 2025-05-20 05:55 | Outpatient (BNV) | payer BC, SELFPAY | PROVIDERS: PCP Internal Medicine; Visit Provider Psychiatry & Neurology Psychiatry | DX: F33.2 Major depressive disorder, recurrent severe without psychotic features (principal) | CPT/HCPCS: 90870 ==

== ENCOUNTER 2025-06-10 05:57 | Day surgery (SDC) | payer BC, SELFPAY ==
[2025-06-10] VITALS (7 sets, daily range): BP systolic 97–120; BP diastolic 67–89; PULSE 61–89; RESP 16–18; TEMP 36.9–37; O2SAT 97–99; BMI 19.4
--- NOTE | 2025-06-10 07:12 | HO.ANESPROP2 ---
[facility] Active Problems Active Problems: All Active Problems (Updated 07/07/24 @ 10:59 by Prasanna Cancino MD) 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 (Acute) Bipolar 1 disorder, depressed, severe (Acute) Cognitive and behavioral changes (Acute) Other anxiety states (Acute) Bipolar affective, mixed, severe (Acute) Akathisia (Acute) Panic attacks (Acute) Anxiety (Acute) Past Medical History Medical History Menopause Routine medical exam Bipolar affective, mixed, severe Akathisia Panic attacks Anxiety No known health problems Family History Family history of problems with anesthesia: No Surgical History History of Problems with Anesthesia: No Social History Social History Household Members: Spouse Household Members Other:: Housing: House Are you a primary anesthesiologist and critical care to a significant other at home: No Do you presently have visiting nurse or other home services: No Alcohol intake: current Alcohol intake frequency: does not drink Alcohol type: wine Patient Tobacco Use Status: Never used Tobacco e-Cigarette/Vaping Use: Never Used Second Hand Smoke Exposure: No Advance Directives: No Advance Directives Information Provided: Yes service: No Sexual orientation: Straight/Heterosexual Meds Allergies Allergy/AdvReac Type Severity Reaction Status Date / Time No Known Allergies Allergy Verified 03/11/24 14:49 Home Medications ?Medication ?Instructions ?Recorded ?Confirmed ?Last Taken ?Type estradiol 0.0375 mg/24 hr 1 patch topical 2XW 03/11/24 03/11/24 03/11/24 History semiweekly transdermal patch progesterone micronized 100 mg 100 mg PO DAILY 03/11/24 03/11/24 03/11/24 History capsule gabapentin 300 mg capsule 300 mg PO 3XD 10/23/24 10/23/24 Unknown History olanzapine 2.5 mg tablet 2.5 mg PO BEDTIME 10/23/24 10/23/24 Unknown History Exam Height,Weight and Vital Signs: Height 5 ft 6 in Weight 54.431 kg Last Vital Signs Temp 98.4 F 06/10/25 06:27 Pulse 82 06/10/25 06:27 Resp 16 06/10/25 06:27 BP 97/67 06/10/25 06:27 Pulse Ox 98 06/10/25 06:27 O2 Del Method Room Air 06/10/25 06:27 Assessment and Plan Assessment Anesthesia Assessment: Anesthesia Plan Discussed and Chart Reviewed Final Anesthetic Review Family History of Problems with Anesthesia: No History of Problems with Anesthesia: No NPO: Yes ASA Class: II Final Preanesthetic Review: Meds/Allgs Chart Reviewed, Consent Obtained/Reviewed and Anes Risks/Benef Reviewed Patient Risk: Low Procedure Risk: Intermediate Anesthetic Plan Anesthetic Plan: GA Disposition: Standard PACU
--- NOTE | 2025-06-10 07:18 | MHC.SHP ---
Pre-Procedural Eval Section A - 24 Hr Update-Section A only Date of Service: 06/10/25 The patient is an INPATIENT: No Section B - Complete if H&P > 30 days Chief Complaint: depression Details of Present Illness: pt has been doing well no c/o side effects Relevant Social History: None Present Medications: see Short Stay Collaborative assessment Allergies: Allergies Allergy/AdvReac Type Severity Reaction Status Date / Time No Known Allergies Allergy Verified 03/11/24 14:49 Review of Systems Sugical H&P ROS: Negative: Constitution, Cardiovascular, Respiratory and Neurological and Yes, Specify: Psychiatric (mild obsessional sx ONGOING) Exam Surgical H&P Exam: Normal: HEENT, Normal: Lungs, Normal: Extremities and Normal: Neurological Plan Diagnosis/Plan: Unchanged I have reviewed the history and physical and performed a pertinent physical examination on my patient. No changes have occurred unless specified. Time Spent With Patient Time: Total time managing care of this patient today ____ minutes.
--- NOTE | 2025-06-11 19:41 | P.PCN_ITS ---
ECT Procedure Note Diagnosis/Treatment Date of Service: 06/10/25 Diagnosis: Major Depressive Disorder Previous ECT Date: 05/20/25 Current Treatment Number: 10 Treatment: Series Interval Clinical Notes: The patient continues to feel quite well attention and fx have normalized sees dr lanier pleasant full affect fx well at [facility] s/e Time: Total time managing care of this patient today _30___ minutes. ECT Settings Device: THYMATRON DGx Electrode Placement: Right Unilateral Program/Pulse Width: 0.25 Energy Percent: 100 Seizure Duration By EEG (in seconds): 50 Medications Administration General Anesthetic: Etomidate (14) Muscle Relaxant: Succinylcholine (80) Ancillary Medications Miscillaneous Medications: Midazolam (2) Airway Management Airway Management: Bag Mask Ventilation Treatment Recommendations No Changes Recommended: No change Electrode Placement: Right Unilateral Notes: f/u 3 wks pt to call if relapse sx Pt Tolerated Procedure w/o Issue: Yes
== END 2025-06-10 08:25 | disposition home or self-care (01) ==
PROVIDERS: PCP Internal Medicine; Visit Provider Psychiatry & Neurology Psychiatry
PROC: (CPT 90870; principal; 2025-06-10 07:00)
DX: F31.63 Bipolar disorder, current episode mixed, severe, without psychotic features (principal); F41.9 Anxiety disorder, unspecified; F41.0 Panic disorder [episodic paroxysmal anxiety]; G25.71 Drug induced akathisia; Z79.899 Other long term (current) drug therapy
CPT/HCPCS: 90870; J0330; J2250

== ENCOUNTER → 2025-06-10 05:57 | Outpatient (BNV) | payer BC, SELFPAY | PROVIDERS: PCP Internal Medicine; Visit Provider Psychiatry & Neurology Psychiatry | DX: F33.2 Major depressive disorder, recurrent severe without psychotic features (principal) | CPT/HCPCS: 90870 ==

== ENCOUNTER 2025-07-06 05:56 | Day surgery (SDC) | payer BC, SELFPAY ==
--- OUTSIDE RECORDS SUMMARY | 2025-06-11 15:45 | XMS_ITS | Encounter Summary ---
Author Organization [facility] Address [address] [place] [address] Phone Care Team Providers Care Stewardess Supervisor Name Role Phone Nitesh Rosenberg DO Unavailable Tati Lovell MACHINE JOINT CUTTER Unavailable [phone] Imani Schulz CNM Unavailable Leydi Carl MD Unavailable [phone] Brijesh Gonzalez MD Unavailable [phone] Liz Chamberlain MACHINE JOINT CUTTER Unavailable Nitesh Rosenberg DO Primary Care Provider Nitesh Rosenberg DO Unavailable Encounter Details Date Type Department Care Team (Late st Contact Info) Description 03/19/2018 Ancillary Orders Virtual Department [address] [place] [address] Nitesh Rosenberg DO [address] [place] [address] Breast screening Social History Tobacco Use Types [...] 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 Not on file Not on fi le documented as of this encounter Plan of Treatment Upcoming Encounters Date Type Department Care Team (Late st Contact Info) Description 06/23/2025 3:50 PM EST Appointment [facility] [place], [place] [address] [place] [address] [place] [address] Jennifer Posada MD [address] [place] [address], [address] [address] [email or web address] 06/23/2025 4:30 PM EST Office Visit [facility] [address] [place] [address] [place] [address] Jennifer Posada MD [address] [place] [address] [email or web address] documented as of this encounter Results * [...] and compared with multiple prior studies, most [id number]/17/2017 and 04/09/2017, with utilization of computer-aided detection. [...] documented as of this encounter Care Teams Stewardess Supervisor Relationship Specialty Start Date End Date Nitesh Rosenberg DO [address] [place] [address] PCP - General 08/16/17 Nitesh Rosenberg DO [address] [place] [address] Historical LMR Provider 06/03/17 08/20/21 Tati Lovell NP [address] [address] Historical LMR Provider 06/03/17 2 Imani Schulz CNM [address] [place] [address] Historical LMR Provider 06/03/17 2 Leydi Carl MD [address] [place] [address] Historical LMR Provider 06/03/17 Brijesh Gonzalez MD [address] [place] [address] Historical LMR Provider 06/03/17 2 Liz Chamberlain NP [address] [place] [address] Historical LMR Provider 06/03/17 2 Nitesh Rosenberg DO [address] [place] [address] Insurance Assigned Provider 11/17/23 documented as of this encounter Additional Source Comments The information contained in this document represents components of the legal health record. It is not the complete legal health record.[facility]
--- OUTSIDE RECORDS SUMMARY | 2025-06-11 15:45 | XMS_ITS | Encounter Summary ---
Author Organization [facility] Address [address] [place] [address] Phone Care Team Providers Care Shark Biologist Name Role Phone Nitesh Rosenberg DO Unavailable Tati Lovell ELEVATOR SUPERVISOR Unavailable Imani Schulz CNM Unavailable Leydi Carl MD Unavailable [phone] Brijesh Gonzalez MD Unavailable [phone] Liz Chamberlain ELEVATOR SUPERVISOR Unavailable Nitesh Rosenberg DO Primary Care Provider [phone] Nitesh Rosenberg DO Unavailable Encounter Details Date Type Department Care Team (Late st Contact Info) Description 07/29/2020 Procedure Pass [facility], [address] [address] Social History Tobacco Use Types Packs/Day Years [...] 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 Not on file Not on fi le documented as of this encounter Functional Status documented as of this encounter Plan of Treatment Upcoming Encounters Date Type Department Care Team (Late st Contact Info) Description 06/23/2025 3:50 PM EST Appointment [facility] [place], OB [address] [place] [address] [place] [address] Jennifer Posada MD [address] [place] [address] 06/23/2025 4:30 PM EST Office Visit [facility] [address] [place] [address] [place] [address] Jennifer Posada MD [address] [place] [address] documented as of this encounter Visit Diagnoses Not on filedocumented in this encounter Additional Health Concerns Infection Onset Date Last Indicated Resolved Time Influenza A 08/05/2023 08/05/2023 08/12/2023 1:22 AM EST CoV-Risk 08/05/2023 08/05/2023 08/16/2023 1:23 AM EST documented as of this encounter Care Teams Shark Biologist Relationship Specialty Start Date End Date Nitesh Rosenberg DO [address] [place] [address] PCP - General 08/16/17 Nitesh Rosenberg DO [address] [place] [address] Historical LMR Provider 06/03/17 08/20/21 Tati Lovell NP [address] [place] [address] Historical LMR Provider 06/03/17 2 Imani Schulz CNM [address] [place] [address] Historical LMR Provider 06/03/17 2 Leydi Carl MD [address] [place] [address] Historical LMR Provider 06/03/17 Brijesh Gonzalez MD [address] [place] [address] Historical LMR Provider 06/03/17 2 Liz Chamberlain NP [address] [place] [address] Historical LMR Provider 06/03/17 2 Nitesh Rosenberg DO [address] [place] [address] [email or web address] Insurance Assigned Provider 11/17/23 documented as of this encounter Additional Source Comments The information contained in this document represents components of the legal health record. It is not the complete legal health record.[facility]
--- OUTSIDE RECORDS SUMMARY | 2025-06-11 15:45 | XMS_ITS | Encounter Summary ---
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 Not on file Not on fi le documented as of this encounter Plan of Treatment Upcoming Encounters Date Type Department Care Team (Late st Contact Info) Description 06/23/2025 3:50 PM EST Appointment [facility] [place], [place] [address] [place] [address] Jeninfer Posada MD [address] [facility], [address] [place], [place] [phone] [email or web address] 06/23/2025 4:30 PM EST Office Visit [facility] [address] [place] [address] [place] [address] Jennifer Posada MD 22 [facility] [address] [place] [address] documented as of this encounter Visit Diagnoses Not on filedocumented in this encounter Additional Health Concerns Infection Onset Date Last Indicated Resolved Time Influenza A 08/05/2023 08/05/2023 08/12/2023 1:22 AM EST CoV-Risk 08/05/2023 08/05/2023 08/16/2023 1:23 AM EST documented as of this encounter Care Teams Arcade Technician Relationship Specialty Start Date End Date Nitesh Rosenberg DO [address] [place] [address] PCP - General 08/16/17 Leydi Carl MD [address] [place] [address] Historical LMR Provider 06/03/17 Nitesh Rosenberg DO [address] [place] [address] [email or web address] Insurance Assigned Provider 11/17/23 documented as of this encounter Additional Source Comments The information contained in this document represents components of the legal health record. It is not the complete legal health record.[facility]
--- OUTSIDE RECORDS SUMMARY | 2025-06-11 15:45 | XMS_ITS | Data Portability ---
Author Organization [facility], Telehealth Patient Home Address [address] [place] [address] Assessment Encounter Date Assessment Date Assessment LastModified by Organization Details LastModified Time 08/28/2023 08/28/2023 Patient agreed and verbally consents to this audio and video Telehealth appt via a secure platform [email or web address] Not available 08/28/2023 14:09:09 05/12/2024 05/12/2024 [id number] [place] [id number] (ROLLOUT MANAGER) : MDM LOW MUST MEET 2 OF [...] TSH + free T4, serum 2023 024 [facility], [place], [address], 11:34:45 vitamin B12 + folate, serum or blood 2023 024 [facility], [place], [address], 4 11:34:45 ESR (erythrocy te sedimentat ion rate), blood 2023 [facility], [place], [address], 4 14:25:15 C reactive protein, QN, serum or plasma 2023 024 [facility], [place], [address], 4 14:25:15 GIBSON + rf (antinucle ar antibodies + rheumatoid factor), quantitati ve, serum 2023 [facility] [address], [address], 4 11:25:57 cortisol, serum or plasma 2023 024 [facility] [address], [address], 4 14:26:47 PTH (parathyro id hormone), intact, serum or plasma 2023 024 [facility], [place], [address], 4 14:25:15 CMP, serum or plasma 2023 024 [facility], [place], [address], 4 11:34:45 Referral None recorded. Procedures None recorded. Surgeries None recorded. Imaging None recorded. Medication Orders lorazepam 1 mg tablet 2023 [email or web address] [id number], [address], [place], [id number], 4 15:08:08 Seroquel 25 mg tablet 2023 024 [facility] #[id number], [address], [place], [id number], 4 15:15:35 lorazepam 0.5 mg tablet 2023 024 [facility] #[id number], [address], [place], [id number], 5 13:37:58 hydroxyzin e HCl 25 mg tablet 2023 024 [facility] #[id number], [address], [place], [id number], 4 15:16:31 Patient TargetsNo targets recorded. Patient InstructionsNo instructions recorded. Reason for Referral None Reported. Results Created Date Observation Date Name Description Value Unit Range Abnormal Flag Note LastModifiedBy Organization Detail LastModifiedTime 03/11/20 24 03/11/2024 CT, head, w/o contr ast No observ ation record ed. [facility] (Medical Records) [address] [place] [address], [address], 03/12/2024 08:51:04 Result Notes None recorded. Problems Name Problem SNOMED Code Status Onset Date Resolution Date Notes Provider Name and Address Organization Details Recorded Time Anxiety 83783782 Active 2017 Not Available [facility] 15:48:18 Colorectal cancer detected by DNA-based stool screening 237332460 Active 2021 MARQUIS GARCIA [address] [place], [address], [facility] 2 09:50:42 Influenza- like symptoms 646449800 Active 2022 MARQUIS GARCIA [address] [place], [address], [facility] 3 10:43:43 Menopause Active 2022 MARQUIS GARCIA [address] [place], [address], [facility] 3 09:50:48 Panic attack 643214760 Active 2022 MARQUIS GARCIA [address] [place] [address], [address], [facility] 3 10:57:41 Restlessne ss and agitation 546448452 Active 2023 MARQUIS GARCIA [address] [place] [address], [address], [facility] 4 16:21:19 Acute urinary tract infection 220998743 Active 2023 MARQUIS GARCIA [address] [place] [address], [address], [facility] 4 12:25:28 Bipolar disorder 07170013 Active 2023 MARQUIS GARCIA [address] [place] [address], [address], [facility] 4 15:34:50 Problem Notes None recorded. Procedures Surgical History Date Name Laterality Status Provider Name and Address Organization Details Recorded Time 04/22/20 18 Most Recent Mammogram completed [facility] 06/11/2019 08:15:51 09/06/19 11 Date of Last Pap Smear completed [facility] 06/11/2019 08:24:48 Remove tonsils and adenoids completed November LLOYD Orellana [address] [place] [address], [address], [facility] 06/11/2019 15:57:52 Imaging Results None [...] Not Available Not Available Not Available Afluria 0423-5518 (PF) 45 mcg(15 mcg x 3)/0.5 mL [...] Updated DateTime 5 170.18 cm 18.2 kg/m2 32278.4 3 g 93 /min 96 % 96 % 112/68 mm[Hg] Roxanne Soriano [facility] 5 13:30:56 Date Recorded Body height Body mass index (BMI) Body weight Heart rate Oxygen saturation Oxygen saturation in Arterial blood by Pulse oximetry Systolic And Diastolic Provider Name and Address Organization Details Last Updated DateTime 4 170.18 cm 18 kg/m2 53991.4 g 87 /min 98 % 98 % 110/70 mm[Hg] Roxanne Drew [facility] 4 15:09:24 Date Recorded Body height Body mass index (BMI) Body weight Heart rate Oxygen saturation Oxygen saturation in Arterial blood by Pulse oximetry Systolic And Diastolic Provider Name and Address Organization Details Last Updated DateTime 5 170.18 cm 18.4 kg/m2 18526.7 4 g 75 /min 97 % 97 % 112/70 mm[Hg] Roxanne Drew [facility] 5 09:52:57 Date Recorded Body height Body mass index (BMI) Body weight Heart rate Oxygen saturation Oxygen saturation in Arterial blood by Pulse oximetry Systolic And Diastolic Provider Name and Address Organization Details Last Updated DateTime 4 170.18 cm 17.2 kg/m2 61691.1 6 g 94 /min 97 % 97 % 130/68 mm[Hg] Nishi Ortega [facility] 4 15:18:57 Social History Question Answer Notes LastModified by Informous Details LastModified Time Tobacco Smoking Status Never Smoker Not Available [facility] 06/15/2020 03:36:24 What Was The Date Of Your Most Recent Tobacco Screening? 03/31/2025 [email or web address] Information not available 03/31/2025 How Much Tobacco Do You Smoke? No [id number] Information not available 06/15/2020 How Many Years Have You Smoked Tobacco? 0 [id number] Information not available 06/15/2020 Sex: Unknown Functional Status Question Answer Note LastModified by Inform[employer] Details LastModified Time Do you or have you ever used any other forms of tobacco or nicotine? No [email or web address] Information not available 05/12/2024 Do you or have you ever used smokeless tobacco? Never used smokeless tobacco [id number] Information not available 06/15/2020 Do you or have you ever used e-cigarettes or vape? Never used electronic cigarettes [id number] Information not available 06/15/2020 Mental Status None recorded. Family History Relationship Description Onset Age of this Age Resolved Age Notes LastModified by Organization Details LastModified Time Paternal Grandfather Heart disease [email or web address] Not available 06/11 15:56:50 Mother Malignant neoplasm of lung smoker [email or web address] Not available 09:36:51 Medical History No medical [...] mcg/0.3 mL dose 1 completed MARQUIS GARCIA [address] [place] [address], [address], [facility] 06/26/2021 18:44:50 Influenza, split virus, quadrivalent, preservative 8 [facility] 05/22/2018 10:05:48 influenza, unspecified formulation 4 completed MARQUIS GARCIA [address] [place] [address], [address], [facility] 09/30/2024 13:41:37 Influenza, split virus, quadrivalent, preservative 9 completed Cadence LLOYD Orellana [address] [place] [address], [address], [facility] 06/11/2019 15:51:30 Tdap 7 completed Cadence LLOYD Orellana [address] [place] [address], [address], [facility] 04/09/2018 11:19:19 Past Encounters Encounter ID Performer Location Encounter Start Date Encounter Closed Date Diagnosis/Indication Diagnosis SNOMED-CT Code Diagnosis ICD10 Code Diagnosis IMO Codes Diagnosis Note [id number] Nitesh Rosenberg [facility] [address] [facility], [place] [place] [address] 04/09/2018 10:58:46 04/09/2018 11:48:08 Adult health examination 331345525 Z00.01 fasting labs reviewed and are all normal Microscopic hematuria 19 9221664 R31.21 has had neg urologic work up in past Anxiety 47531837 F41.9 paroxetine works well, has tried to taper off, but didn't tolerate Abdominal bloating 23057 9008 R14.0 ? IBS consider FODMAPS diet Abdominal pain 31372862 R10.9 [id number] Nitesh Rosenberg [facility] [address] [facility] [place] [address] 09/18/2018 15:46:37 09/18/2018 16:35:43 Perioral dermatitis 513001868 L71.0 avoid all products trial coconut oil will trial doxy as well [id number] Nitesh Rosenberg [facility] [address] [facility], [place] [address] 06/11/2019 15:37:33 06/11/2019 16:09:25 Adult health examination 384136246 Z00.00 Active or passive immunization 719302108 Z23 UTD Anxiety 66200576 F41.9 paroxetine works well, has tried to taper off, but didn't tolerate Vitamin D deficiency 347 99178 E55.9 Microscopic hematuria 19 3506651 R31.21 has had neg urologic work up in past [id number] Nitesh Rosenberg [facility] [address] [facility], [place] [address] 06/14/2020 15:37:36 06/14/2020 16:25:51 Anxiety 13510785 F41.9 Adult heal th examination 383972582 Z00.00 BP excellent today all concerns addressed Thoracic back pain 09999 8004 M54.6 will start with XR Low back pain 104004380 M54.5 will start with XR Screening for cardiovascular system disease 322023367 Z13.6 needs [id number] Nitehs Rosenberg [facility] [address] [facility],[place] [address] 10/24/2021 15:51:14 10/25/2021 11:35:00 Anxiety 75921366 F41.1 stablewill send in refill [facility] 779236114 Z00.00 BP excellent today all concerns addressed [id number] Nitesh Rosenberg [facility] [address] [facility] [place] [address] 09/22/2022 09:39:50 09/22/2022 16:32:53 Influenza-like symptoms 647130741 R68.89 will see who has it in stock [id number] Nitesh Rosenberg [facility] [address] [facility], [place] [address] 01/29/2023 09:26:52 01/29/2023 11:38:09 Active or passive immunization 665080423 Z23 up to date [facility] 394390224 Z00.00 BP excellent today all concerns addressed Menopause 945423397 N95. 1 seeing GYNwill suggest HRT Anxiety 88655531 F41.1 stablewill send in refill of the increased dosage [id number] Nitesh Rosenberg [facility] [address] [facility], [place] [facility] [address] 07/10/2023 13:59:24 07/11/2023 08:09:49 Acute bronchitis 42669418 J20.8 will start on a prednisone taperconti nue exporant and fluidscont inue with rest [id number] Nitesh Rosenberg [facility] [address] [facility],[place] [address] 08/10/2023 09:15:09 08/14/2023 09:58:18 Anxiety 63448717 F41.1 will up to 50 mg, hopefully will be able to drop it back down Panic attack 663976827 F 41.0 [id number] Nitesh Rosenberg [facility] [address] [facility],[place] [address] 08/21/2023 16:30:40 08/22/2023 08:58:06 Panic attack 083183206 F41.0 started on seroquelwi ll fu tomorrow Restlessne ss and agitation 504049573 R45.1 fu tomorrow [id number] Nitesh Rosenberg [facility] [address] [facility],[place] [address] 08/28/2023 09:51:15 08/29/2023 08:39:51 Anxiety 24706331 F41.1 will up to 50 mg, hopefully will be able to drop it back down Panic attack 256159035 F 41.0 continue 25 mg of seroquel Restlessne ss and agitation 649820880 R45.1 continue 25 mg seroquel [id number] Nitesh Rosenberg [facility] [address] [facility],[place] [address] 01/11/2024 14:55:00 01/11/2024 15:59:23 Anxiety 24468321 F41.1 will up to 50 mg, hopefully will be able to drop it back down Bipolar disorder 6273829 4 F31.10 working with ROLLOUT MANAGER for medication s [id number] Nitesh Rosenberg [facility] [address] [facility],[place] [facility] [place] [address] 05/12/2024 14:56:47 05/12/2024 15:45:14 Pre-surgery evaluation 792379518 Z01.818 .per the 2019 ACC cardiac risk stratifica tion , this patient is cleared for the proposed ECT therapy . [id number] Nitesh Rosenberg [facility] [address] [facility],[place] [facility] [address] 09/30/2024 13:19:50 09/30/2024 13:54:17 Anxiety 97339381 F41.1 follows with psych Bipolar disorder 7383700 4 F31.10 follows with psych Pre-surger y evaluation 930754907 Z01.818 patient cleared for ECT treatments [id number] Nitesh Rosenberg [facility] [address] [facility] [address] 03/31/2025 09:36:34 03/31/2025 14:46:37 Bipolar disorder 48928191 F31.10 follows with liseth be going the ECT again Preoperative state 12122 002 Z01.818 [id number] patient cleared for ECT treatments Health Concerns Section Related Observation LastModified by Organization Detai ls LastModified Time None Recorded Concern Status LastModified by Organization Details LastModified Time None Recorded Advance Directives Directive None Recorded Payers Insurance Date Sequence Insurance Name Policy Number Policy Martinez Covered Member ID Martinez Member ID Guarantor Name 03/31/2025 1 [place] [id number] Vicki Contreras [id number] Vicki Contreras 03/31/2025 1 [place] HMO [facility] [id number] Vicki Contreras [id number] Vicki Contreras Notes Date Note Type Note Provider Name a nd Address Organization Details Recorded Time 4 text/html ROS as noted in the HPI c/o anxiety/mental health crisis The patient is participating in this appointment via telemedicine communication with a phone call/video calling service ([employer])The patient consents to use of these platforms [...] break through flare ups MARQUIS GARCIA [address] [place], [address], [facility] 08/28/2023 14:35:26 4 text/html hospital d/c the patient reports MARQUIS GARCIA [address] [place], [address], [facility] 01/11/2024 15:42:40 4 text/html ROS as noted in the HPI here for rechk and is in need of medical clearancehas been getting ECT therapy and requires clearance to go further Nitesh Rosenberg DO [address] [place], [address], [facility] 05/12/2024 15:42:16 5 text/html ROS [...] she is currently taking MARQUIS GARCIA [address] [place], [address], [facility] 09/30/2024 13:52:55 5 text/html Pre-OpReported [...] the patient has a f/u with the ROAD CLEANER in May (sees Dr. Posada at [place] [facility]) to discuss the HRT A0x3 MARQUIS GARCIA [address] [place] [address], [place], [address], [place] [facility] 03/31/2025 12:00:56 OBGyn Episode No OBEpisode recorded.
--- OUTSIDE RECORDS SUMMARY | 2025-06-11 15:45 | XMS_ITS | Encounter Summary ---
Author Organization [facility] Address [address] [place] [address] Phone Care Team Providers Care Fire Prevention Specialist Name Role Phone Leydi Carl MD Unavailable [phone] Nitesh Rosenberg DO Primary Care Provider [phone] Nitesh Rosenberg DO Unavailable Encounter Details Date Type Department Care Team (Late st Contact Info) Description 05/07/2024 Transcribe Orders [facility] Specimen Processing [address] [place] [address] Nitesh Rosenberg DO [address] [facility] [place] [address] [email or web address] Social History Tobacco Use [...] 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 Not on file Not on fi le documented as of this encounter Plan of Treatment Upcoming Encounters Date Type Department Care Team (Late st Contact Info) Description 06/23/2025 3:50 PM EST Appointment [facility] [address] [place] [address] Jennifer Posada MD [address] [place] [phone] 06/23/2025 4:30 PM EST Office Visit [facility] [address] [place] [address] [place] [address] Jennifer Posada MD [address] [place] [address] documented as of this encounter Visit Diagnoses Not on filedocumented in this encounter Care Teams Fire Prevention Specialist Relationship Specialty Start Date End Date Nitesh Rosenberg DO [address] [place] [address] PCP - General 08/16/17 Leydi Carl MD [address] [place] [address] Historical LMR Provider 06/03/17 Nitesh Rosenberg DO [address] [place] [address] Insurance Assigned Provider 11/17/23 documented as of this encounter Additional Source Comments The information contained in this document represents components of the legal health record. It is not the complete legal health record.[facility]
--- OUTSIDE RECORDS SUMMARY | 2025-06-11 15:45 | XMS_ITS | Encounter Summary ---
Author Organization [facility] Address [address] [place] [address] Phone Care Team Providers Care Meeting Manager Name Role Phone Nitesh Rosenberg DO Unavailable Tati Lovell [employer]LECT[employer] RESOURCES LIBRARIAN Unavailable Imani Schulz CNM Unavailable Leydi Carl MD Unavailable [phone] Brijesh Gonzalez MD Unavailable [phone] Liz Chamberlain ELECT[employer]IC RESOURCES LIBRARIAN Unavailable Nitesh Rosenberg DO Primary Care Provider [phone] Nitesh Rosenberg DO Unavailable Encounter Details Date Type Department Care Team (Latest Contact Info) Description 04/09/2018 Transcribe Orders [facility] [address] [place] [address] Cadence Orellana PA-C 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 Not on file Not on fi le documented as of this encounter Plan of Treatment Upcoming Encounters Date Type Department Care Team (Late st Contact Info) Description 06/23/2025 3:50 PM EST Appointment [facility] [address] [place] [address] [place] [address] Jennifer Posada MD [address] [place] [address], [address] [address] [email or web address] 06/23/2025 4:30 PM EST Office Visit [facility] [address] [place] [address] [place] [address] Jennifer Posada MD [address] [place] [address], [address] [address] documented as of this encounter Results * Gliadin deamidated antibody, IgG/IgA (04/09/2018 11:53 AM EDT) Gliadin Ab, IGA <10.0 <20.0 (Negative) U [facility] DPT OF LAB MED AND PAT+ GLIADIN AB IGG <10.0 <20.0 (Negative) U [facility] DPT OF LAB MED AND PAT+ Blood 04/09/2018 11:5 3 AM EDT 04/09/2018 12:12 PM EDT us November Reyna [facility] LAB BLOOD ORDERABLES Final R esult [facility] DPT OF LAB MED AND PAT+ [address] [place] [address] * Tissue transglutaminase IgA (04/09/2018 11:53 AM EDT) TTG IGA ANTIBODY <1.2 <4.0 (Negative) U/mL [facility] DPT OF LAB MED AND PAT+ Blood 04/09/2018 11:5 3 AM EDT 04/09/2018 12:12 PM EDT November Reyna [facility] LAB BLOOD ORDERABLES Final R esult [facility] DPT OF LAB MED AND PAT+ [address] [place] [address] documented in this encounter Visit Diagnoses Diagnosis Stomach ache- Primary Dyspepsia and other specified disorders of function of stomach documented in this encounter Additional Health Concerns Infection Onset Date Last Indicated Resolved Time Influenza A 08/05/2023 08/05/2023 08/12/2023 1:22 AM EST CoV-Risk 08/05/2023 08/05/2023 08/16/2023 1:23 AM EST documented as of this encounter Care Teams Meeting Manager Relationship Specialty Start Date End Date Nitesh Rosenberg DO [address] [place] [address] PCP - General 08/16/17 Nitesh Rosenberg DO [address] [place] [address] [email or web address] Historical LMR Provider 06/03/17 08/20/21 Tati Lovell NP [address] [place] [address] Historical LMR Provider 06/03/17 2 Imani Schulz CNM [address] [place] [address] Historical LMR Provider 06/03/17 2 Leydi Carl MD [address] [place] [address] Historical LMR Provider 06/03/17 Brijesh Gonzalez MD [address] [place] [address] Historical LMR Provider 06/03/1708/20/2 2 Liz Chamberlain NP [address] [place] [address] Historical LMR Provider 06/03/17 2 Nitesh Rosenberg DO [address] [place] [address] [email or web address] Insurance Assigned Provider 11/17/23 documented as of this encounter Additional Source Comments The information contained in this document represents components of the legal health record. It is not the complete legal health record.[facility]
--- OUTSIDE RECORDS SUMMARY | 2025-06-11 15:45 | XMS_ITS | Clinical Summary ---
Author Organization [facility] Address [address] [place] [address] Phone Care Team Providers Care Budder Name Role Phone Leydi Carl MD Unavailable [phone] BigNitesh lino DO Primary Care Provider [phone] Nitesh Rosenberg DO Unavailable Allergies No known active allergies Medications multivitamins with iron-folic acid (CENTRUM COMPLETE) 18-400 mg-mcg Tab Active escitalopram oxalate (LEXAPRO) 20 MG tablet Take 20 mg by mouth nightly at bedtime. Active gabapentin (NEURONTIN) 600 MG tablet Take 600 mg by mouth 3 (three) times a day. Active LORazepam (ATIVAN) 0.5 MG tablet TAKE 1 TABLET BY MOUTH 1 TIME A DAY AT BEDTIME Active OLANZapine (ZYPREXA) 10 MG tablet Take 10 mg by mouth nightly at bedtime. Active estradioL (VIVELLE-DOT) 0.0375 mg/24 hrIndications: Menopausal symptoms Place 1 patch onto the skin 2 (two) times a week. 24 patch 05/28/20 25 Active progesterone (PROMETRIUM) 100 mg capsuleIndicat ions:Menopausa l symptoms Take 1 capsule (100 mg total) by mouth daily. 90 capsule 3 05/26/20 25 Active PARoxetine (PAXIL) 20 MG tablet Take 10 mg by mouth every morning. 09/06/19 11 025 Discontinued(No longer taking) benztropine (COGENTIN) 0.5 MG tablet Take 0.5 mg by mouth 2 (two) times a day. 12/26/19 025 Discontinued(No longer taking) clonazePAM (KLONOPIN) 0.5 MG tablet Take 0.5 mg by mouth daily. 12/26/19 025 Discontinued(No longer taking) clonazePAM (KLONOPIN) 1 MG tablet Take 1 mg by mouth nightly at bedtime. 12/26/19 025 Discontinued(No longer taking) divalproex (DEPAKOTE) [address] tablet Take 750 mg by mouth nightly at bedtime. 12/26/19 025 Discontinued(No longer taking) risperiDONE (RISPERDAL) 1 MG tablet Take 1 mg by mouth 2 (two) times a day. 12/26/19 025 Discontinued(No longer taking) progesterone (PROMETRIUM) 100 mg capsuleIndicat ions:Menopausa l symptoms TAKE 1 CAPSULE(100 MG) BY MOUTH DAILY 90 capsule 3 08/18/19 25 025 Discontinued(Re order) estradioL (VIVELLE-DOT) 0.0375 mg/24 hrIndications: Menopausal symptoms APPLY 1 PATCH TOPICALLY TO THE SKIN 2 TIMES A WEEK 24 patch 02/19/20 25 025 Discontinued estradioL (VIVELLE-DOT) 0.0375 mg/24 hrIndications: Menopausal symptoms APPLY 1 PATCH TOPICALLY TO THE SKIN 2 TIMES A WEEK 24 patch 05/18/20 25 025 Discontinued(Re order) Active Problems Problem Noted Date Diagnosed Date Anxiety 04/08/2018 Dense breast tissue 08/30/2017 Overview (07/29/2020): Intends to do yearly mammograms Assessment & Plan (08/30/2017 5:27 PM EST): Continue routine screening. Patient instructed to come for eval If r breast mass previously diagnosed as cyst and stable per patient increases in size or becomes painful Resolved Problems Problem Noted Date Diagnosed Date Resolved Date Iron deficiency anemia due t o chronic blood loss 02/10/2019 05/26/2025 Overview (02/10/2019): Due to menorrhagia; controlled with [...] can may telehealth visit to discuss HRT Encounters Date Type Department Care Team Description 05/26/2025 4:10 PM EDT Office Visit [facility] [address] [place] [address] [place] [address] Jennifer Posada MD Encounter for annual routine gynecological examination (Primary Dx); Postmenopausal bleeding; Breast cancer screening by mammogram; Menopausal symptoms 05/26/2025 Telephone [facility] [address] [place] [address] [place] [address] Yodit Delacruz LPN opened in error 05/21/2025 Telephone [facility] [address] [place] [address] [place] [address] Savanna Flannery LPN PA for Estrogen Patch 05/16/2025 Refill [facility] [address] [place] [address] [place] [address] Jennifer Posada MD Medication Refill from Last [...] 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 Not on file Not on fi le Last Filed Vital Signs Vital Sign Reading Time Taken Comments Blood Pressure 104/68 05/26/2025 3:52 PM EDT Pulse 89 08/05/2023 11:24 AM EST Temperature 37 C (98.6 F) 08/05/2023 11:24 AM EST Respiratory Rate 17 08/05/2023 11:24 AM EST Oxygen Saturation 100% 08/05/2023 11:24 AM EST Inhaled Oxygen Concentration - - Weight 54.9 kg (121 lb) 05/26/2025 3:52 PM EDT Height 167.6 cm (5' 6 ) 05/26/2025 3:52 PM EDT Body Mass Index 19.53 05/26/2025 3:52 PM EDT Plan of Treatment Upcoming Encounters Date Type Department Care Team (Late st Contact Info) Description 06/23/2025 3:50 PM EST Appointment [facility] [place], [place] [address] [place] [address] Jennifer Posada MD [address] [facility], [address] [place] [address] [email or web address] 06/23/2025 4:30 PM EST Office Visit [facility] [address] [place] [address] [place] [address] Jennifer Posada MD [address] [facility], [address] [place] [address] [email or web address] Maintenance Due Date Last Done Comments DEPRESSION SCREENING 1982 HEPATITIS C SCREENING 1988 HIV ONE-TIME SCREENING (18-65 YEARS) 1988 COLOGUARD 2015 COLONOSCOPY 2015 COLORECTAL CANCER SCREENING 2015 FIT TEST 2015 FOBT 2015 SIGMOIDOSCOPY 2015 VIRTUAL COLONOSCOPY 2015 PNEUMOCOCCAL VACCINES (50+ years) (1 of 1 - PCV) 2020 INFLUENZA VACCINE (#1) 2025 , 05/24/2024, 05/22/2023, Additional history exists COVID-19 VACCINE ( season) 2025 06/07/2024, 06/25/2021, 11/13/2020, Additional history exists MAMMOGRAM 05/13/2026 05/13/2024, 06/14, 07/06/2021, Additional history exists Adult Td,Tdap Booster 05/22/2027 05/22/2017, 016 PAP SMEAR 05/26/2028 05/26/2025, 07/13, 06/02/2016 LIPID PANEL 04/25/2029 04/25/2024, 03/14, 04/03/2023, Additional history exists RSV VACCINE (1 - 1-dose 75+ series) 2045 ZOSTER VACCINES Completed 06/07/2022, 04/07/2022 SMOKING STATUS SCREENING (Once After 26 Yrs) Completed 05/26/2025 HEPATITIS A VACCINES Aged Out No long [...] Procedure Name Priority Date/Time Associated Diagnosis Comments PAP TEST Routine 05/26/2025 12:00 AM EDT BI MAMMOGRAM SCREENING WITH TOMOSYNTHESIS WITH CAD (BILATERAL) Routine 05/13/2024 7:42 AM EDT Breast cancer screening by mammogram LIPID PANEL Routine 04/25/2024 8:02 AM EDT Pure hypercholesterolemia from Last 3 Months or Most Recently Relevant to Health Maintenance Results * Pap Test (05/26/2025 12:00 AM EDT) [place] [address] Construction Checker: Dean Henry MD WAREHOUSE SHIFT SUPERVISOR Cytology Report FINAL DIAGNOSIS A. PAP SMEAR (THIN PREP) CE: SPECIMEN ADEQUACY: Satisfactory for evaluation; transformation zone present. INTERPRETATION: NEGATIVE FOR INTRAEPITHELIAL LESION OR MALIGNANCY. Reactive changes. This specimen was analyzed by the automated ThinPrep Imaging System (Andela.) and manually rescreened by a shuttle veneering supervisor and/or pathologist. Electronically Signed Out By: MD Elizabeth Cam CT(ASCP) By his/her signature above, the pathologist listed as making the Final Diagnosis certifies that he/she has personally reviewed this case and confirmed or corrected the diagnosis. The Pap test is a screening test primarily for squamous cancers and precursors and has associated false-negative and false-positive results. New technologies such as liquid-based preparations may decrease but will not eliminate all false-negative results. Regular sampling and follow-up of unexplained clinical signs and symptoms are recommended to minimize false negative results. PROCEDURES/ADDENDA HPV Testing (Requested) Ordered Date: 05/27/2025 A. PAP SMEAR (THIN PREP) CE: High-risk HPV Panel w/ extended genotyping NEG HPV 16-NEG HPV 18-NEG HPV 45-NEG HPV 33/58-NEG HPV 31-NEG HPV 56/59/66-NEG HPV 51-NEG HPV 52-NEG HPV 35/39/68-NEG Performed by real-time polymerase chain reaction (PCR) at [address] using the FDA-approved BD Onclarity HPV Assay with extended genotyping. Uses of the assay in scenarios other than those approved by the FDA should be considered off-label use. The accuracy and precision of this test for all other off-label specimen sources has been verified in the Cytopathology Laboratory of the [facility] and has not been cleared or approved by the U.S. Food and Drug Administration. Clinical correlation is advised. The assay assesses the E6/E7 DNA target and utilizes human beta globin as an internal control. Cytology and HPV testing are screening assays and should not be used as the sole means of detecting cancer. False-positives and false-negatives can occur. CLINICAL HISTORY Date of Last Menstrual Period: Not Provided Menstrual History: Post Menopausal Bleeding, PM Treatment History: Hormone Therapy: REPLACEMENT Other Clinical Conditions: Screening Pap SPECIMEN SOURCE A: PAP SMEAR (THIN PREP) CE Patient Name: RAZA JARRELL : 1970 (Age: 54) Sex: F Institution: [facility] Location: [facility] Date of Collection: 05/26/2025 Date of Reported: 06/02/2025 15:27 Results to: Jennifer Posada MD [facility] Final Diagnosis A. PAP SMEAR (THIN PREP) CE: SPECIMEN ADEQUACY: Satisfactory for evaluation; transformation zone present. INTERPRETATION: NEGATIVE FOR INTRAEPITHELIAL LESION OR MALIGNANCY. Reactive changes. This specimen was analyzed by the automated ThinPrep Imaging System ([employer].) and manually rescreened by a shuttle veneering supervisor and/or pathologist. [facility] Results\Inte rpretation A. PAP SMEAR (THIN PREP) CE: High-risk HPV Panel w/ extended genotyping NEG HPV 16-NEG HPV 18-NEG HPV 45-NEG HPV 33/58-NEG HPV 31-NEG HPV 56/59/66-NEG HPV 51-NEG HPV 52-NEG HPV 35/39/68-NEG Performed by real-time polymerase chain reaction (PCR) at [facility], [address] [place] [address] using the FDA-approved BD Onclarity HPV Assay with extended genotyping. Uses of the assay in scenarios other than those approved by the FDA should be considered off-label use. The accuracy and precision of this test for all other off-label specimen sources has been verified in the Cytopathology Laboratory of the [facility] and has not been cleared or approved by the U.S. Food and Drug Administration. Clinical correlation is advised. The assay assesses the E6/E7 DNA target and utilizes human beta globin as an internal control. Cytology and HPV testing are screening assays and should not be used as the sole means of detecting cancer. False-positives and false-negatives can occur. [facility] Conversion Type 05/26/2025 9:44 AM EDT us Jennifer Posada MD CYTOLOGY ORDERABLES Edited Result - Final [address] [address] * (ABNORMAL) BI MAMMOGRAM SCREENING WITH TOMOSYNTHESIS [...] (04/25/2024 8:02 AM EDT) HDL 87 mg/dL [facility] Comment: Interpretation <40 mg/dL: Low HDL cholesterol (major risk factor for CHD) Greater than or equal to 60 mg/dL: High HDL cholesterol ( negative risk factor for CHD) HDL - cholesterol is affected by a number of factors, e.g. smoking, excerise, hormones, sex and age. CHOLESTEROL 173 0 - 240 mg/dL [facility] TRIGLYCERIDES 61 30 - 160 mg/dL [facility] LDL 74 50 - 129 mg/dL [facility] Comment: LDL levels in terms of risk for coronary heart disease: <100 mg/dL: Optimal 100-129 mg/dL: Near or above optimal 130-159 mg/dL: Borderline high 160-189 mg/dL: High >190 mg/dL: Very High CARDIAC RISK RATIO 2.0(L) 3.3 - 4.4 C [facility] Blood 04/25/2024 8:02 AM EDT 04/25/2024 8:07 AM EDT us Denise Williamson NP LAB BLOOD ORDERABLES Final R esult [address] [address] from Last 3 Months or Most Recently Relevant to Health Maintenance Insurance [employer] Care Teams Budder Relationship Specialty Start Date End Date Nitesh Rosenberg DO [address] [place] [address] PCP - General 08/16/17 Leydi Carl MD [address] [place] [address] Historical LMR Provider 06/03/17 Nitesh Rosenberg DO [address] [place] [address] Insurance Assigned Provider 11/17/23 Additional Source Comments The information contained in this document represents components of the legal health record. It is not the complete legal health record.[facility]
--- OUTSIDE RECORDS SUMMARY | 2025-06-11 15:45 | XMS_ITS | Encounter Summary ---
Author Organization [facility] Address [address] [place] [address] Phone Care Team Providers Care Graphic Coordinator Name Role Phone Chet Nitesh Herman DO Unavailable Tati Lovell CARDIOPULMONARY PHYSICAL THERAPIST Unavailable Imani Schulz CNM Unavailable Leydi Carl MD Unavailable [phone] Brijesh Gonzalez MD Unavailable [phone] Liz Chamberlain CARDIOPULMONARY PHYSICAL THERAPIST Unavailable Nitesh Rosenberg DO Primary Care Provider Nitesh Rosenberg DO Unavailable Encounter Details Date Type Department Care Team (Latest Contact Info) Description 06/16/2020 Transcribe Orders Virtual Department [address] [place] [address] Keira Alonso PA [address] [place] [address] [place] [address] Thoracic spine pain (Primary Dx) Social History [...] 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 Not on file Not on fi le documented as of this encounter Plan of Treatment Upcoming Encounters Date Type Department Care Team (Late st Contact Info) Description 06/23/2025 3:50 PM EST Appointment [facility] [place], OB [address] [place] [address] [place] [address] Jennifer Posada MD [address] [place] [address], [address] [address] [email or web address] 06/23/2025 4:30 PM EST Office Visit [facility] [address] [place] [address] [place] [address] Jennifer Posada MD [address] [place] [address], [address] [address] documented as of this encounter Results * [...] degenerative changes. No other explanation for pain. us Keira Martin CHO IMG XR SPINE Final Resul t [...] documented as of this encounter Care Teams Graphic Coordinator Relationship Specialty Start Date End Date Nitesh Rosenberg DO [address] [place] [address] PCP - General 08/16/17 Nitesh Rosenberg DO [address] [place] [address] [email or web address] Historical LMR Provider 06/03/17 08/20/21 Tati Lovell NP [address] [place] [address] Historical LMR Provider 06/03/17 2 Imani Schulz CNM [address] [place] [address] Historical LMR Provider 06/03/17 2 Leydi Carl MD [address] [place] [address] Historical LMR Provider 06/03/17 Brijesh Gonzalez MD [address] [place] [address] Historical LMR Provider 06/03/17 2 Liz Chamberlain NP [address] [place] [address] Historical LMR Provider 06/03/17 2 Nitesh Rosenberg DO [address] [place] [address] [email or web address] Insurance Assigned Provider 11/17/23 documented as of this encounter Additional Source Comments The information contained in this document represents components of the legal health record. It is not the complete legal health record.[facility]
--- OUTSIDE RECORDS SUMMARY | 2025-06-11 15:45 | XMS_ITS | Encounter Summary ---
Author Organization [facility] Address [address] [place] [address] Phone Care Team Providers Care Skin Former Name Role Phone Chet Nitesh Herman DO Unavailable Tati Lovell CRIMINAL JUSTICE LAWYER Unavailable [phone] Imani Schulz CNM Unavailable Leydi Carl MD Unavailable [phone] Brijesh Gonzalez MD Unavailable [phone] Liz Chamberlain CRIMINAL JUSTICE LAWYER Unavailable Nitesh Rosenberg DO Primary Care Provider [phone] Nitesh Rosenberg DO Unavailable Encounter Details Date Type Department Care Team (Late st Contact Info) Description 06/16/2020 Ancillary Orders Virtual Department [address] [place] [address] Keira Alonso PA [address] [place] [address] [place] [address] Low back pain, unspecified back pain laterality, [...] 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 Not on file Not on fi le documented as of this encounter Plan of Treatment Upcoming Encounters Date Type Department Care Team (Late st Contact Info) Description 06/23/2025 3:50 PM EST Appointment [facility] [address] [place] [address] Jennifer Posada MD [address] [place] [address], [address] [address] [email or web address] 06/23/2025 4:30 PM EST Office Visit [facility] [address] [place] [address] [place] [address] Jennifer Posada MD [address] [place] [address], [address] [address] [email or web address] documented as of this encounter Results * [...] documented as of this encounter Care Teams Skin Former Relationship Specialty Start Date End Date Nitesh Rosenberg DO [address] [place] [address] PCP - General 08/16/17 Nitesh Rosenberg DO [address] [place] [address] [email or web address] Historical LMR Provider 06/03/17 08/20/21 Tati Lovell NP [address] [place] [address] Historical LMR Provider 06/03/17 2 Imani Schulz CNM [address] [place] [address] Historical LMR Provider 06/03/17 2 Leydi Carl MD [address] [place] [address] Historical LMR Provider 06/03/17 Brijesh Gonzalez MD [address] [place] [address] Historical LMR Provider 06/03/17 2 Liz Chamberlain NP [address] [place] [address] Historical LMR Provider 06/03/17 2 Nitesh Rosenberg DO [address] [place] [address] [email or web address] Insurance Assigned Provider 11/17/23 documented as of this encounter Additional Source Comments The information contained in this document represents components of the legal health record. It is not the complete legal health record.[facility]
--- OUTSIDE RECORDS SUMMARY | 2025-06-11 15:45 | XMS_ITS | Encounter Summary ---
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 Not on fi le documented as of this encounter Plan of Treatment Upcoming Encounters Date Type Department Care Team (Late st Contact Info) Description 06/23/2025 3:50 PM EST Appointment [facility] [place], OB [address] [place] [address] [place] [address] Jennifer Posada MD [address] [place] [address] 06/23/2025 4:30 PM EST Office Visit [facility] [address] [place] [address] [place] [address] Jennifer Posada MD [address] [place] [address] documented as of this encounter Visit Diagnoses Not on filedocumented in this encounter Care Teams Spinner Iron Relationship Specialty Start Date End Date Nitesh Rosenberg DO [address] [place] [address] PCP - General 08/16/17 Leydi Carl MD [address] [place] [address] Historical LMR Provider 06/03/17 Nitesh Rosenberg DO [address] [place] [address] Insurance Assigned Provider 11/17/23 documented as of this encounter Additional Source Comments The information contained in this document represents components of the legal health record. It is not the complete legal health record.[facility]
--- OUTSIDE RECORDS SUMMARY | 2025-06-11 15:45 | XMS_ITS | Encounter Summary ---
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 Not on fi le documented as of this encounter Plan of Treatment Upcoming Encounters Date Type Department Care Team (Late st Contact Info) Description 06/23/2025 3:50 PM EST Appointment [facility] [place], OB [address] [place] [address] [place] [address] Jennifer Posada MD [address] [place] [address] 06/23/2025 4:30 PM EST Office Visit [facility] [address] [place] [address] [place] [address] Jennifer Posada MD [address] [place] [address] documented as of this encounter Visit Diagnoses Not on filedocumented in this encounter Care Teams Coater Operator Relationship Specialty Start Date End Date Nitesh Rosenberg DO [address] [place] [address] PCP - General 08/16/17 Leydi Carl MD [address] [place] [address] Historical LMR Provider 06/03/17 Nitesh Rosenberg DO [address] [place] [address] Insurance Assigned Provider 11/17/23 documented as of this encounter Additional Source Comments The information contained in this document represents components of the legal health record. It is not the complete legal health record.[facility]
--- OUTSIDE RECORDS SUMMARY | 2025-06-11 15:46 | XMS_ITS | Encounter Summary ---
Author Organization [facility] Address [address] [place] [id number] Phone Care Team Providers Care Prehemmer Name Role Phone Chet Nitesh Herman DO Unavailable Tati Lovell BOAT TENDER Unavailable [phone] Imani Schulz CNM Unavailable Leydi Carl MD Unavailable [phone] Brijesh Gonzalez MD Unavailable [phone] Liz Chamberlain BOAT TENDER Unavailable Nitesh Rosenberg DO Primary Care Provider [phone] Nitesh Rosenberg DO Unavailable Encounter Details Date Type Department Care Team (Latest Contact Info) Description 06/17/2019 Transcribe Orders [facility] [address] [place] [address] Cadence Orellana PA-C 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 Not on fi le documented as of this encounter Plan of Treatment Upcoming Encounters Date Type Department Care Team (Late st Contact Info) Description 06/23/2025 3:50 PM EST Appointment [facility] [address] [place] [address] Jennifer Posada MD [address] [place] [address], [address] [address] [email or web address] 06/23/2025 4:30 PM EST Office Visit [facility] [address] [place] [address] [place] [address] Jennifer Posada MD [address] [place] [address], [address] [address] documented as of this encounter Results * 25-OH vitamin D (06/17/2019 7:38 AM EST) 25 OH VIT D (TOTAL) 42 30 - 60 ng/mL [facility] Blood 06/17/2019 7:38 AM EST 06/17/2019 8:08 AM EST November Reyna DUPONT LAB BLOOD ORDERABLES Final R esult [facility] [address] [place] [address] * (ABNORMAL) CBC and differential (06/17/2019 7:38 AM EST) Pathologist [facility] WBC 7.90 3.40 - 11.20 K/uL [facility] RBC 4.20 3.80 - 4.80 M/uL [facility] HGB 13.6 12.0 - 15.0 g/dL [facility] HCT 40.2 36.0 - 46.0 % [facility] PLT 273 130 - 400 K/uL [facility] MCV 95.7 79.0 - 98.0 fL [facility] MCH 32.4 27.0 - 34.8 pg [facility] MCHC 33.8 31.5 - 36.0 g/dL [facility] RDW 12.1 10.8 - 14.6 % [facility] MPV 9.3(L) 9.4 - 12.4 fl [facility] NRBC 0.00 0.00 /100 WBCs [facility] ABSOLUTE NRBC 0.00 0.00 K/uL [facility] DIFF METHOD Auto [facility] NEUTS 68.7 45.30 - 77.70 % [facility] LYMPHS 20.5 12.30 - 39.70 % [facility] MONOS 7.0 4.10 - 12.80 % [facility] EOS 2.2 0 - 7.2 % [facility] BASOS 1.3 0 - 2.80 % [facility] Granulocytes, immature (%) 0.3 0.0 - 0.9 % [facility] ABSOLUTE NEUTS 5.44 1.40 - 7.70 K/uL [facility] ABSOLUTE LYMPHS 1.62 0.60 - 3.20 K/uL [facility] ABSOLUTE MONOS 0.55 0.11 - 0.59 K/uL [facility] ABSOLUTE EOS 0.17 0.01 - 0.50 K/uL [facility] ABSOLUTE BASOS 0.10(H) 0.00 - 0.08 K/uL [facility] Granulocytes, immature 0.02 0.00 - 0.05 K/uL [facility] Blood 06/17/2019 7:38 AM EST 06/17/2019 8:08 AM EST Cadence Orellana PA-C LAB BLOOD ORDERABLES Final R esult [facility] [address] [place], [place] [id number] * (ABNORMAL) Lipid panel (06/17/2019 7:38 AM EST) HDL 68 mg/dL [facility] Comment: Interpretation <40 mg/dL: Low HDL cholesterol (major risk factor for CHD) Greater than or equal to 60 mg/dL: High HDL cholesterol ( negative risk factor for CHD) HDL - cholesterol is affected by a number of factors, e.g. smoking, excerise, hormones, sex and age. CHOLESTEROL 148 0 - 240 mg/dL [facility] TRIGLYCERIDES 105 30 - 160 mg/dL [facility] LDL 59 50 - 129 mg/dL [facility] Comment: LDL levels in terms of risk for coronary heart disease: <100 mg/dL: Optimal 100-129 mg/dL: Near or above optimal 130-159 mg/dL: Borderline high 160-189 mg/dL: High >190 mg/dL: Very High CARDIAC RISK RATIO 2.2(L) 3.3 - 4.4 C [facility] Blood 06/17/2019 7:38 AM EST 06/17/2019 8:08 AM EST November Reyna DUPONT LAB BLOOD ORDERABLES Final R esult [facility] [address] [place] [address] * Comprehensive metabolic panel (06/17/2019 7:38 AM EST) SODIUM 141 133 - 146 mmol/L [facility] POTASSIUM 4.2 3.3 - 5.1 mmol/L [facility] CHLORIDE 104 96 - 108 mmol/L [facility] CO2 26 21 - 35 mmol/L [facility] BUN 10 6 - 19 mg/dL [facility] CREATININE 0.60 0.5 - 1.5 mg/dL [facility] GLUCOSE 91 70 - 99 mg/dL [facility] ALBUMIN 4.1 3.9 - 4.8 g/dL [facility] TOTAL PROTEIN 6.7 6.5 - 8.0 g/dL [facility] CALCIUM 9.4 8.4 - 10.3 mg/dL [facility] ALKALINE PHOSPHATASE 46 39 - 117 U/L [facility] TOTAL BILIRUBIN 0.5 0.0 - 1.2 mg/dL [facility] AST 21 0 - 37 U/L [facility] ALT 12 0 - 40 U/L [facility] GLOBULIN 2.6 1 - 4.8 g/dL [facility] EGFR 107 >59 mL/min/1.7 3m2 [facility] Comment:If patient is black, multiply result by 1.159. Estimated glomerular filtration rate calculated using the CKD-EPI equation. ANION GAP 15 10 - 20 mmol/L [facility] Blood 06/17/2019 7:38 AM EST 06/17/2019 8:08 AM EST November Reyna DUPONT LAB BLOOD ORDERABLES Final R esult Performing Organization Address City/State/[facility] Co de Phone Number [address] [address] documented in this encounter Visit Diagnoses Diagnosis Routine general medical examination at a health care facility- Primary Avitaminosis D Unspecified vitamin D deficiency documented in this encounter Additional Health Concerns Infection Onset Date Last Indicated Resolved Time Influenza A 08/05/2023 08/05/2023 08/12/2023 1:22 AM EST CoV-Risk 08/05/2023 08/05/2023 08/16/2023 1:23 AM EST documented as of this encounter Care Teams Prehemmer Relationship Specialty Start Date End Date Nitesh Rosenberg DO [address] [place] [address] PCP - General 08/16/17 Nitesh Rosenberg DO [address] [place] [address] Historical LMR Provider 06/03/17 08/20/21 Tati Lovell NP [address] [place] [address] Historical LMR Provider 06/03/17 2 Imani Schulz CNM [address] [place] [address] Historical LMR Provider 06/03/17 2 Leydi Carl MD [address] [place] [address] Historical LMR Provider 06/03/17 Brijesh Gonzalez MD [address] [place] [address] Historical LMR Provider 06/03/17 2 Liz Chamberlain NP [address] [place] [address] Historical LMR Provider 06/03/17 2 Nitesh Rosenberg DO [address] [place] [address] [email or web address] Insurance Assigned Provider 11/17/23 documented as of this encounter Additional Source Comments The information contained in this document represents components of the legal health record. It is not the complete legal health record.[facility]
--- OUTSIDE RECORDS SUMMARY | 2025-06-11 15:46 | XMS_ITS | Encounter Summary ---
Author Organization [facility] Address [address] [place] [address] Phone Care Team Providers Care Apple Picking Supervisor Name Role Phone Leydi Carl MD Unavailable [phone] BigNitesh lino DO Primary Care Provider [phone] Nitesh Rosenberg DO Unavailable Encounter Details Date Type Department Care Team (Late st Contact Info) Description 05/15/2024 Ancillary Orders [facility], [address] [address] Jennifer Posada MD [address] [address] [email or web address] Abnormal mammogram (Primary Dx) Social History Tobacco [...] 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 Not on fi le documented as of this encounter Plan of Treatment Upcoming Encounters Date Type Department Care Team (Late st Contact Info) Description 06/23/2025 3:50 PM EST Appointment [facility] [place] [address] [place] [address] [place] [address] Jennifer Posada MD [address] [place] [address], [address] [address] [email or web address] 06/23/2025 4:30 PM EST Office Visit [facility] [address] [place] [address] [place] [address] Jennifer Posada MD [address] [place] [address], [address] [address] documented as of this encounter Results * [...] at time ofexamination. us Jennifer Posada MD IM US BREAST Final Resu lt * BI [...] unspecified documented in this encounter Care Teams Apple Picking Supervisor Relationship Specialty Start Date End Date Nitesh Rosenberg DO [address] [place] [address] PCP - General 08/16/17 Leydi Carl MD [address] [place] [address] Historical LMR Provider 06/03/17 Nitesh Rosenberg DO [address] [place] [address] [email or web address] Insurance Assigned Provider 11/17/23 documented as of this encounter Additional Source Comments The information contained in this document represents components of the legal health record. It is not the complete legal health record.[facility]
[2025-07-06] VITALS (8 sets, daily range): BP systolic 96–121; BP diastolic 76–81; PULSE 69–90; RESP 10–16; TEMP 36.6–37.3; O2SAT 98–100; BMI 19.4
--- NOTE | 2025-07-06 06:33 | HO.ANESPROP2 ---
HPI - Anesthesia Eval Consult details Narrative: for ECT PMFSH Active Problems Active Problems: All Active Problems 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 (Acute) Bipolar 1 disorder, depressed, severe (Acute) Cognitive and behavioral changes (Acute) Other anxiety states (Acute) Bipolar affective, mixed, severe (Acute) Akathisia (Acute) Panic attacks (Acute) Anxiety (Acute) Past Medical History Medical History Menopause Routine medical exam Bipolar affective, mixed, severe Akathisia Panic attacks Anxiety No known health problems Family History Family history of problems with anesthesia: No Surgical History History of Problems with Anesthesia: No Social History Social History Household Members: Spouse Household Members Other:: Housing: House Are you a primary manager progressive care to a significant other at home: No Do you presently have visiting nurse or other home services: No Alcohol intake: current Alcohol intake frequency: does not drink Alcohol type: wine Patient Tobacco Use Status: Never used Tobacco e-Cigarette/Vaping Use: Never Used Second Hand Smoke Exposure: No Advance Directives: No Advance Directives Information Provided: Yes service: No Sexual orientation: Straight/Heterosexual Meds Allergies Allergy/AdvReac Type Severity Reaction Status Date / Time No Known Allergies Allergy Verified 03/11/24 14:49 Home Medications ?Medication ?Instructions ?Recorded ?Confirmed ?Last Taken ?Type estradiol 0.0375 mg/24 hr 1 patch topical 2XW 03/11/24 03/11/24 03/11/24 History semiweekly transdermal patch progesterone micronized 100 mg 100 mg PO DAILY 03/11/24 03/11/24 03/11/24 History capsule gabapentin 300 mg capsule 300 mg PO 3XD 10/23/24 10/23/24 Unknown History olanzapine 2.5 mg tablet 2.5 mg PO BEDTIME 10/23/24 10/23/24 Unknown History Exam Airway Mallampati Class: I TM Dist: >3cm Neck ROM: Full Loose/Missing/Broken Teeth: No Heart: ok Lungs: ok Assessment and Plan Assessment Anesthesia Assessment: Anesthesia Plan Discussed and Chart Reviewed Final Anesthetic Review Family History of Problems with Anesthesia: No History of Problems with Anesthesia: No NPO: Yes ASA Class: II and III Final Preanesthetic Review: No Changes in Pt Med Stat, Meds/Allgs Chart Reviewed, Consent Obtained/Reviewed and Anes Risks/Benef Reviewed Patient Risk: Low Procedure Risk: Intermediate Anesthetic Plan Anesthetic Plan: GA and Agree w/ Assess. and Plan Disposition: Standard PACU
--- NOTE | 2025-07-06 07:09 | MHC.SHP ---
Pre-Procedural Eval Section A - 24 Hr Update-Section A only Date of Service: 07/06/25 The patient is an INPATIENT: No Section B - Complete if H&P > 30 days Chief Complaint: Major depressive disorder, recurrent, severe with Details of Present Illness: pt has been doing well no c/o side effects Relevant Social History: None Present Medications: see Short Stay Collaborative assessment Allergies: Allergies Allergy/AdvReac Type Severity Reaction Status Date / Time No Known Allergies Allergy Verified 03/11/24 14:49 Review of Systems Sugical H&P ROS: Negative: Constitution, Cardiovascular, Respiratory and Neurological and Yes, Specify: Psychiatric (mild anxiety sx ONGOING) Exam Surgical H&P Exam: Normal: HEENT, Normal: Lungs, Normal: Extremities and Normal: Neurological Plan Diagnosis/Plan: Unchanged I have reviewed the history and physical and performed a pertinent physical examination on my patient. No changes have occurred unless specified. Time Spent With Patient Time: Total time managing care of this patient today ____ minutes.
--- NOTE | 2025-07-06 07:09 | HO.ECTPROC ---
ECT Procedure Note Diagnosis/Treatment Date of Service: 07/06/25 Diagnosis: Major Depressive Disorder Previous ECT Date: 05/20/25 Current Treatment Number: 11 Treatment: Maintenance and Series Interval Clinical Notes: Patient complains of somewhat more anxiety and preoccupations. Had been doing quite well. Is still hoping that this is her last ECT for this round and does not wish to schedule another when it at this time. Completed right unilateral tolerated well. Time: Total time managing care of this patient today _30___ minutes. ECT Settings Device: THYMATRON DGx Electrode Placement: Right Unilateral Program/Pulse Width: 0.25 Energy Percent: 100 Seizure Duration By EEG (in seconds): 46 Medications Administration General Anesthetic: Etomidate (14) Muscle Relaxant: Succinylcholine (80) Ancillary Medications Miscillaneous Medications: Midazolam (2) Airway Management Airway Management: Bag Mask Ventilation Treatment Recommendations No Changes Recommended: No change Electrode Placement: Right Unilateral Notes: f/u prn pt to call if relapse sx coord with dr lanier Pt Tolerated Procedure w/o Issue: Yes
== END 2025-07-06 08:40 | disposition home or self-care (01) ==
PROVIDERS: PCP Internal Medicine; Visit Provider Psychiatry & Neurology Psychiatry
PROC: (CPT 90870; principal; 2025-07-06 07:30)
DX: F33.2 Major depressive disorder, recurrent severe without psychotic features (principal); F06.4 Anxiety disorder due to known physiological condition; Z79.899 Other long term (current) drug therapy
CPT/HCPCS: 90870; J0330; J2250; J2704

== ENCOUNTER → 2025-07-06 05:56 | Outpatient (BNV) | payer BC, SELFPAY | PROVIDERS: PCP Internal Medicine; Visit Provider Psychiatry & Neurology Psychiatry | DX: F33.2 Major depressive disorder, recurrent severe without psychotic features (principal) | CPT/HCPCS: 90870 ==

== ENCOUNTER 2025-07-27 05:58 | Day surgery (SDC) | payer BC, SELFPAY ==
[2025-07-27] VITALS (7 sets, daily range): BP systolic 102–112; BP diastolic 69–79; PULSE 68–96; RESP 10–16; TEMP 37–37.4; O2SAT 96–99; BMI 19.4
[2025-07-27] MEDS: Lactated Ringers 1,000 ML 50 ML IVCONT (06:40)
--- NOTE | 2025-07-27 06:54 | P.CONAN_ITS ---
[facility] Active Problems Active Problems: All Active Problems 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 (Acute) Bipolar 1 disorder, depressed, severe (Acute) Cognitive and behavioral changes (Acute) Other anxiety states (Acute) Bipolar affective, mixed, severe (Acute) Akathisia (Acute) Panic attacks (Acute) Anxiety (Acute) Past Medical History Medical History Menopause Routine medical exam Bipolar affective, mixed, severe Akathisia Panic attacks Anxiety No known health problems Family History Family history of problems with anesthesia: No Surgical History History of Problems with Anesthesia: No Social History Social History Household Members: Spouse Household Members Other:: Housing: House Are you a primary career discovery teacher to a significant other at home: No Do you presently have visiting nurse or other home services: No Alcohol intake: current Alcohol intake frequency: does not drink Alcohol type: wine Patient Tobacco Use Status: Never used Tobacco e-Cigarette/Vaping Use: Never Used Second Hand Smoke Exposure: No Advance Directives: No Advance Directives Information Provided: Yes service: No Sexual orientation: Straight/Heterosexual Meds Allergies Allergy/AdvReac Type Severity Reaction Status Date / Time No Known Allergies Allergy Verified 03/11/24 14:49 Home Medications ?Medication ?Instructions ?Recorded ?Confirmed ?Last Taken ?Type estradiol 0.0375 mg/24 hr 1 patch topical 2XW 03/11/24 03/11/24 03/11/24 History semiweekly transdermal patch progesterone micronized 100 mg 100 mg PO DAILY 4 03/11/24 03/11/24 History capsule gabapentin 300 mg capsule 300 mg PO 3XD 10/23/2410/23 Unknown History olanzapine 2.5 mg tablet 2.5 mg PO BEDTIME 10/23/24 0 10/23/24 Unknown History Exam Height,Weight and Vital Signs: Height 5 ft 6 in Weight 54.431 kg Last Vital Signs Temp 99.3 F 07/27/25 06:31 Pulse 87 07/27/25 06:31 Resp 16 07/27/25 06:31 BP 104/69 07/27/25 06:31 Pulse Ox 98 07/27/25 06:31 O2 Del Method Room Air 07/27/25 06:31 Airway Mallampati Class: II TM Dist: >3cm Neck ROM: Full Heart: rrr Lungs: cta Assessment and Plan Assessment Anesthesia Assessment: Anesthesia Plan Discussed and Chart Reviewed Final Anesthetic Review Family History of Problems with Anesthesia: No History of Problems with Anesthesia: No NPO: Yes ASA Class: III Final Preanesthetic Review: No Changes in Pt Med Stat, Meds/Allgs Chart Reviewed and Consent Obtained/Reviewed Patient Risk: Intermediate Procedure Risk: Intermediate Anesthetic Plan Anesthetic Plan: GA Disposition: Standard PACU
--- NOTE | 2025-07-27 07:25 | MHC.SHP ---
Pre-Procedural Eval Section A - 24 Hr Update-Section A only Date of Service: 07/27/25 The patient is an INPATIENT: No Section B - Complete if H&P > 30 days Chief Complaint: depression Details of Present Illness: pt has relapse sx of depression Relevant Social History: None Present Medications: see Short Stay Collaborative assessment Allergies: Allergies Allergy/AdvReac Type Severity Reaction Status Date / Time No Known Allergies Allergy Verified 03/11/24 14:49 Review of Systems Sugical H&P ROS: Negative: Constitution, Cardiovascular, Respiratory and Neurological and Yes, Specify: Psychiatric (anxiety and dep sx ) Exam Surgical H&P Exam: Normal: HEENT, Normal: Lungs and Normal: Neurological Plan Diagnosis/Plan: Unchanged I have reviewed the history and physical and performed a pertinent physical examination on my patient. No changes have occurred unless specified. Time Spent With Patient Time: Total time managing care of this patient today ____ minutes.
--- NOTE | 2025-07-27 07:26 | HO.ECTPROC ---
ECT Procedure Note Diagnosis/Treatment Date of Service: 07/27/25 Diagnosis: Major Depressive Disorder Previous ECT Date: 05/20/25 Current Treatment Number: 12 Treatment: Maintenance and Series Interval Clinical Notes: Patient complains of somewhat more anxiety and preoccupations. Agreeable to restart ect has had med changes Time: Total time managing care of this patient today _30___ minutes. ECT Settings Device: THYMATRON DGx Electrode Placement: Right Unilateral Program/Pulse Width: 0.25 Energy Percent: 100 Seizure Duration By EEG (in seconds): 64 Medications Administration General Anesthetic: Etomidate (14) Muscle Relaxant: Succinylcholine (80) Ancillary Medications Miscillaneous Medications: Midazolam (2) Airway Management Airway Management: Bag Mask Ventilation Treatment Recommendations No Changes Recommended: No change Notes: Dr lanier has requested ect q wk no c/o side effects Pt Tolerated Procedure w/o Issue: Yes
--- NOTE | 2025-07-27 08:06 | HO.ECTPROC ---
ECT Procedure Note Diagnosis/Treatment Date of Service: 07/27/25 Time: Total time managing care of this patient today ____ minutes. ECT Settings Device: THYMATRON DGx
== END 2025-07-27 09:02 | disposition home or self-care (01) ==
PROVIDERS: PCP Internal Medicine; Visit Provider Psychiatry & Neurology Psychiatry
PROC: (CPT 90870; principal; 2025-07-27 07:00)
DX: F33.2 Major depressive disorder, recurrent severe without psychotic features (principal); F06.4 Anxiety disorder due to known physiological condition; Z79.899 Other long term (current) drug therapy
CPT/HCPCS: 90870; J0330; J2250

== ENCOUNTER → 2025-07-27 05:58 | Outpatient (BNV) | payer BC, SELFPAY | PROVIDERS: PCP Internal Medicine; Visit Provider Psychiatry & Neurology Psychiatry | DX: F33.2 Major depressive disorder, recurrent severe without psychotic features (principal) | CPT/HCPCS: 90870 ==

== ENCOUNTER 2025-08-05 05:57 | Day surgery (SDC) | payer BC, SELFPAY ==
[2025-08-05] VITALS (7 sets, daily range): BP systolic 96–127; BP diastolic 55–96; PULSE 66–108; RESP 10–18; TEMP 36.3–37.1; O2SAT 93–99; BMI 19.4
--- NOTE | 2025-08-05 07:04 | MHC.SHP ---
Pre-Procedural Eval Section A - 24 Hr Update-Section A only Date of Service: 08/05/25 The patient is an INPATIENT: No Section B - Complete if H&P > 30 days Chief Complaint: depression Details of Present Illness: pt has relapse sx of depression Relevant Social History: None Present Medications: see Short Stay Collaborative assessment Allergies: Allergies Allergy/AdvReac Type Severity Reaction Status Date / Time No Known Allergies Allergy Verified 03/11/24 14:49 Review of Systems Sugical H&P ROS: Negative: Constitution, Cardiovascular, Respiratory and Neurological and Yes, Specify: Psychiatric (anxiety and dep sx ) Exam Surgical H&P Exam: Normal: HEENT, Normal: Lungs and Normal: Neurological Plan Diagnosis/Plan: Unchanged I have reviewed the history and physical and performed a pertinent physical examination on my patient. No changes have occurred unless specified. Time Spent With Patient Time: Total time managing care of this patient today ____ minutes.
--- NOTE | 2025-08-05 07:05 | HO.ECTPROC ---
ECT Procedure Note Diagnosis/Treatment Date of Service: 08/05/25 Diagnosis: Major Depressive Disorder Previous ECT Date: 05/20/25 Current Treatment Number: 12 Treatment: Maintenance Interval Clinical Notes: Patient shown improvement since her last treatment. Anxiety and depressive symptoms have improved patient without complaints of side effects alert oriented Time: Total time managing care of this patient today ____ minutes. ECT Settings Device: THYMATRON DGx Electrode Placement: Right Unilateral Program/Pulse Width: 0.25 Energy Percent: 100 Seizure Duration By EEG (in seconds): 58 Medications Administration General Anesthetic: Etomidate (14) Muscle Relaxant: Succinylcholine (80) Ancillary Medications Miscillaneous Medications: Midazolam (2) Airway Management Airway Management: Bag Mask Ventilation Treatment Recommendations No Changes Recommended: No change Notes: Dr lanier has requested ect q wk no c/o side effects Pt Tolerated Procedure w/o Issue: Yes
--- NOTE | 2025-08-05 07:10 | HO.ANESPROP2 ---
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 (Acute) Bipolar 1 disorder, depressed, severe (Acute) Cognitive and behavioral changes (Acute) Other anxiety states (Acute) Bipolar affective, mixed, severe (Acute) Akathisia (Acute) Panic attacks (Acute) Anxiety (Acute) Past Medical History Medical History Menopause Routine medical exam Bipolar affective, mixed, severe Akathisia Panic attacks Anxiety No known health problems Functional capacity: independent ambulation Family History Family history of problems with anesthesia: No Surgical History History of Problems with Anesthesia: No Social History Social History Household Members: Spouse Household Members Other:: Housing: House Are you a primary respite care provider to a significant other at home: No Do you presently have visiting nurse or other home services: No Alcohol intake: current Alcohol intake frequency: does not drink Alcohol type: wine Patient Tobacco Use Status: Never used Tobacco e-Cigarette/Vaping Use: Never Used Second Hand Smoke Exposure: No Advance Directives: No Advance Directives Information Provided: Yes service: No Sexual orientation: Straight/Heterosexual Meds Allergies Allergy/AdvReac Type Severity Reaction Status Date / Time No Known Allergies Allergy Verified 03/11/24 14:49 Home Medications ?Medication ?Instructions ?Recorded ?Confirmed ?Last Taken ?Type estradiol 0.0375 mg/24 hr 1 patch topical 2XW 03/11/24 03/11/24 03/11/24 History semiweekly transdermal patch progesterone micronized 100 mg 100 mg PO DAILY 03/11/24 03/11/24 03/11/24 History capsule gabapentin 300 mg capsule 300 mg PO 3XD 10/23/24 10/23/24 Unknown History olanzapine 2.5 mg tablet 2.5 mg PO BEDTIME 10/23/24 10/23/24 Unknown History Exam Height,Weight and Vital Signs: Height 5 ft 6 in Weight 54.431 kg Last Vital Signs Temp 97.4 F 08/05/25 06:32 Pulse 70 08/05/25 06:32 Resp 18 08/05/25 06:32 BP 105/55 L 12/24/25 06:32 Pulse Ox 93 08/05/25 06:32 O2 Del Method Room Air 08/05/25 06:32 Airway Mallampati Class: II TM Dist: >3cm Neck ROM: Full Loose/Missing/Broken Teeth: No Heart: normal Lungs: normal Other: normal Assessment and Plan Assessment Anesthesia Assessment: Anesthesia Plan Discussed Final Anesthetic Review Family History of Problems with Anesthesia: No History of Problems with Anesthesia: No NPO: Yes ASA Class: II and III Final Preanesthetic Review: No Changes in Pt Med Stat, Meds/Allgs Chart Reviewed, Consent Obtained/Reviewed and Anes Risks/Benef Reviewed Patient Risk: Intermediate Procedure Risk: Low Anesthetic Plan Anesthetic Plan: GA Disposition: Standard PACU
== END 2025-08-05 08:20 | disposition home or self-care (01) ==
PROVIDERS: PCP Internal Medicine; Visit Provider Psychiatry & Neurology Psychiatry
PROC: (CPT 90870; principal; 2025-08-05 07:30)
DX: F33.2 Major depressive disorder, recurrent severe without psychotic features (principal); F41.9 Anxiety disorder, unspecified; Z79.899 Other long term (current) drug therapy
CPT/HCPCS: 90870; J0330; J2250

== ENCOUNTER → 2025-08-05 05:57 | Outpatient (BNV) | payer BC, SELFPAY | PROVIDERS: PCP Internal Medicine; Visit Provider Psychiatry & Neurology Psychiatry | DX: F33.2 Major depressive disorder, recurrent severe without psychotic features (principal) | CPT/HCPCS: 90870 ==